=== PATIENT | female | born 1965 | race Caucasian/White ===

== ENCOUNTER 2018-11-17 13:18 | Emergency (ER) | payer MEDICAID, SELFPAY ==
[2018-11-17 13:19] VITALS: BP 158/88; PULSE 61; RESP 17; TEMP 36.6; O2SAT 99; BMI 26.2
[2018-11-17 13:59] LABS: Absolute Lymphocyte Count 4.02 X10^3/uL (0.83-4.51); Absolute Neutrophil Count 4.2 X10^3/uL (2.0-7.7); Basophil# 0.03 X10^3/uL; Basophil% 0.3 % (0-1); Eosinophil# 0.17 X10^3/uL; Eosinophils% 1.9 % (0-5); Hematocrit 43.6 % (37-47); Hemoglobin 14.8 g/dL (12.0-15.0); Lymphocyte # 4.02 X10^3/ul (4.0); Lymphocyte % 44.3 % (19-41); Mean Corp Hgb Conc 33.9 g/dL (32-36); Mean Corpuscular Hgb 32.2 pg (27.0-32.0); Mean Corpuscular Volume 94.8 fL (81-99); Monocyte# 0.65 X10^3/uL; Monocyte% 7.2 % (0-10); NRBC Flagged by Analyzer 0 % (0-5); Neutrophil # 4.17 X10^3/uL (2.7-7.7); Platelet Count 296 K/mm3 (150-450); RBC Distribution Width CV 12.6 % (11.6-14.6); White Blood Count 9.1 K/mm3 (4.4-11.0)
--- NOTE | 2018-11-17 13:59 | ED.VIS.GEN ---
History of Present Illness Chief Complaint: Abd Pain Informant: Patient Onset: Days - 4 days Context: Gradual Onset Timing: Continuous Quality: Pain Location: Periumbilical Current Severity: Mild Maximum Severity: Moderate Worsened by: Touch by prior physician who examined her Relieved by: Nothing Associated Symptoms: No associated symptoms Narrative: Status post recent laparoscopic cholecystectomy by surgeon at [facility], outside facility. She presents because of redness. She denies fever, chills night sweats. She denies shortness of breath. She denies nausea, vomiting diarrhea. She denies dysuria, frequency, urgency or hematuria. She denies drainage from any port. Prior similar symptoms: No Recent Illness/Hospitalization: Yes - Past Medical History (1) No significant past medical history Status: Acute Past Medical History - Allergies and Home Meds Allergies/Adverse Reactions: Allergies No Known Allergies Allergy (Verified 11/17/18 13:19) Primary Care Physician: Osvaldo Banks MD [Primary Care Provider] - Prior records reviewed: No - None available for review Surgical History: cholecystectomy Lives: Alone Smoking Status: Current every day smoker Alcohol: Rare Drugs: None Review of Systems General: Denies: Chills, Fever, Malaise, Subjective, Sweats, Weight loss Cardiovascular: Denies: Chest pain, Palpitations Respiratory: Denies: Dyspnea, Cough, Dyspnea on exertion Gastrointestinal: Reports: Abdominal pain. Denies: Nausea, Vomiting, Diarrhea, Constipation, Melena, Hematochezia Genitourinary: Denies: Dysuria, Hematuria, Frequency Musculoskeletal: Reports: Myalgias Skin: Reports: Rash, Wounds. Denies: Abscess, Abrasions, -, - Hematologic: Denies: Easy bruising, Easy bleeding Allergy: Denies: Uticaria, Swelling of the mouth, Swelling of the tongue Physical Exam Vital Signs/Narrative: Vital Signs Temp Pulse Resp BP Pulse Ox 11/17/18 13:19 97.8 F 61 17 158/88 H 99 Inital Vital Signs reviewed: Yes General: Well nourished, Well developed, No Acute Distress Head: Normocephalic, Atraumatic Eyes: Perrl, EOMI. Negative for: Pale conjunctiva, Scleral icterus ENT: Moist mucous membranes, No rhinorrhea Neck: Supple, Nontender, No lymphadenopathy, No JVD Cardiovascular: Regular rate, Regular rhythm, No murmurs Respiratory: No distress, CTA bilaterally, Chest nontender Abdomen: Soft, Nondistended, Normal bowel sounds, No masses, Tender, Hypoactive bowel sounds. Negative for: Guarding, Rebound tenderness, Hepatomegaly, Splenomegaly, Conner's sign Back: Nontender, Normal Inspection Extremities: Nontender, No edema Skin: Normal color, Rash - Area of erythema inferior to the umbilicus, 1 of the port sites. There is no fluctuance, induration, or drainage. There are no peritoneal findings. Neurological: Alert, Oriented x3, Cranial nerves II-XII grossly intact, Normal Strength, Normal Sensation Psychological: Normal affect, Normal Mood Diagnostic/Tx/Re-eval Laboratory Results 11/17/18 11/17/18 13:43 13:43 WBC 9.1 RBC 4.60 Hgb 14.8 Hct 43.6 MCV 94.8 MCH 32.2 H MCHC 33.9 RDW Std Deviation 44.0 H RDW Coeff of Kenji 12.6 Plt Count 296 MPV 10.0 Immature Gran % (Auto) 0.300 Neut % (Auto) 46.0 L Lymph % (Auto) 44.3 H [place] % (Auto) 7.2 Eos % (Auto) 1.9 Baso % (Auto) 0.3 Absolute Neuts (auto) 4.2 Absolute Lymphs (auto) 4.02 Nucleated RBC % 0 Sodium 140 Potassium 4.0 Chloride 107 Carbon Dioxide 30.0 Anion Gap 3 L BUN 8 Creatinine 0.76 Estim Creat Clear Calc 69.26 Est GFR (MDRD) Af Amer 102 Est GFR (MDRD) Non-Af 85 BUN/Creatinine Ratio 10.5 Glucose 100 Calcium 9.2 White count is normal. There is no shift. Patient does not meet sepsis criteria. She will be treated with p.o. antibiotics and discharged home. She was placed on cephalexin and Bactrim for streptococcal and staphylococcal coverage. - Medical Decision Making Patient is tachypnic will obtain blood work. If white count is normal will discharge with p.o. antibiotics otherwise will do additional testing. Since patient does not meet criteria for admission she was discharged to home with oral antibiotics. She received first dose in the emergency department. She was instructed to follow-up with her surgeon on Tuesday for wound reevaluation. The area of redness was outlined. The outlined area is less than 5 cm there is a less than 5% chance of failure. ED Disposition - Plan for ED Patient: Disposition: Home or Assisted Living Diagnosis: Superficial postoperative wound infection Instructions: ED Wound Infection after surgery Prescriptions: Smz/Tmp Ds [Bactrim Ds] 1 tab PO BID #14 tab Prescription Printed Cephalexin [Keflex] 500 mg PO 4X/DAY #28 cap Prescription Printed Referrals: Osvaldo Banks MD [Primary Care Provider] - Additional Instructions: Follow-up with the surgeon that performed your laparoscopic cholecystectomy on Tuesday for wound reevaluation. If you develop temperature greater than 100, shaking chills or drainage that appears infected return to the emergency department for reevaluation.
[2018-11-17] MEDS: Naproxen 250 MG Tablet 500 MG PO (14:09)
[2018-11-17 14:10] LABS: Anion Gap 3 (5-15); BUN 8 mg/dL (7-18); BUN/Creat Ratio 10.5 RATIO (10-20); Calcium,Total 9.2 mg/dL (8.5-10.1); Chloride 107 mmol/L (98-107); Creatinine, Serum 0.76 mg/dL (0.55-1.02); EST Glomerular Filtration Rate 85 mL/min (>60); Est Glom Filt Rate - Afr Amer 102 mL/min (>60); Estimated Creatinine Clearance 69.26 ml/min; Glucose 100 mg/dL (74-106); Sodium Level 140 mmol/L (136-145)
[2018-11-17] MEDS: Cephalexin 250 MG Capsule 500 MG PO (14:51)
[2018-11-17] MEDS: Smz/Tmp Ds Tablet 1 TABLET PO (14:51)
[2018-11-17 14:52] VITALS: PULSE 50; RESP 18
== END 2018-11-17 14:53 | disposition home or self-care (01) ==
PROVIDERS: Emergency Provider Emergency Medicine; Family Provider Family Medicine; PCP Family Medicine
DX: T81.41XA Infection following a procedure, superficial incisional surgical site, initial encounter (principal); F17.200 Nicotine dependence, unspecified, uncomplicated
CPT/HCPCS: 80048; 85025; 99283; A4216

== ENCOUNTER 2018-11-21 23:09 | Emergency (ER) | payer MEDICAID, SELFPAY ==
[2018-11-21 23:10] VITALS: BP 155/95; PULSE 85; RESP 16; TEMP 35.8; BMI 25.7
--- NOTE | 2018-11-21 23:19 | ED.VIS.GEN ---
History of Present Illness Chief Complaint: Headache Detail of Chief Complaint: Migraine Informant: Patient Onset: Days Context: Gradual Onset Timing: Waxes and wanes Current Severity: Moderate Maximum Severity: Moderate Narrative: Patient has a history of migraine headaches. This migraine started 2 days ago. She has been taking Imitrex, but today started vomiting the medication down. She tried Zofran without improvement. Migraine is diffuse in location. This is similar to her prior migraines. Patient denies recent URI symptoms or head trauma. She did have gallbladder surgery 6 weeks ago. Past Medical History - Allergies and Home Meds Allergies/Adverse Reactions: Allergies No Known Allergies Allergy (Verified 11/17/18 13:19) Primary Care Physician: Osvaldo Banks MD [Primary Care Provider] - Prior records reviewed: Yes Past Medical History: - - Reviewed Surgical History: cholecystectomy Lives: Spouse/ Significant Other Smoking Status: Current every day smoker Review of Systems General: Denies: Chills, Fever Eyes: Denies: Visual changes - bilaterally Cardiovascular: Denies: Chest pain Respiratory: Denies: Dyspnea Gastrointestinal: Reports: Abdominal pain - Postop abdominal pain, Nausea, Vomiting Musculoskeletal: Denies: Neck pain Skin: Denies: Rash Neurological: Reports: Headache Hematologic: Denies: Easy bruising Allergy: Denies: Uticaria Physical Exam Vital Signs/Narrative: Vital Signs Temp Pulse Resp BP 11/21/18 23:10 96.5 F L 85 16 155/95 H Inital Vital Signs reviewed: Yes General: Well nourished, Well developed Head: Normocephalic ENT: Moist mucous membranes Neck: Supple Cardiovascular: Regular rate, Regular rhythm Respiratory: No distress, CTA bilaterally Abdomen: Soft, Tender - Mild right-sided tenderness from her recent surgery. No guarding or rebound., Hypoactive bowel sounds Extremities: Nontender Skin: Normal color Neurological: Alert, Oriented x3 Psychological: Normal affect Diagnostic/Tx/Re-eval - Medical Decision Making Patient was given Toradol, Reglan, Benadryl, and IV fluids. On repeat evaluation she is feeling improved. She has Zofran and Imitrex at home. ED Disposition - Plan for ED Patient: Disposition: Home or Assisted Living Diagnosis: Migraine Instructions: ED, Migraine (Classical) Referrals: Osvaldo Banks MD [Primary Care Provider] - As Needed
[2018-11-21] MEDS: 0.9% Normal Saline 1,000 ML 999 ML IV (23:33)
[2018-11-21] MEDS: DiphenhydrAMINE 50 MG/ML Syringe 25 MG IV (23:34)
[2018-11-21] MEDS: Metoclopramide 10 MG/2 ML Vial IV (23:35)
[2018-11-21] MEDS: Ketorolac 30 MG/ML Syringe IV (23:36)
[2018-11-22 00:40] VITALS: BP 137/89; PULSE 75; RESP 15; O2SAT 98
--- NOTE | 2018-11-22 00:40 | ED.RN ---
PT GIVEN WRITTEN AND VERBAL DISCHARGE INSTRUCTIONS. PT AND VERBALIZE UNDERSTANDING OF D/C INSTRUCTIONS. PT IV D/C AND COVERED WITH 2X2 GAUZE AND PAPER TAPE. PT AMBULATES OUT OF DEPT WITH .
== END 2018-11-22 00:42 | disposition home or self-care (01) ==
PROVIDERS: Emergency Provider Emergency Medicine; Family Provider Family Medicine; PCP Family Medicine
DX: G43.909 Migraine, unspecified, not intractable, without status migrainosus (principal); Z79.899 Other long term (current) drug therapy; F17.200 Nicotine dependence, unspecified, uncomplicated
CPT/HCPCS: 96361; 96374; 96375; 99284; J7030; A4216

== ENCOUNTER 2019-05-03 09:57 | Observation (INO) | payer MEDICAID, SELFPAY ==
[2019-05-03] VITALS (7 sets, daily range): BP systolic 95–155; BP diastolic 56–106; PULSE 68–106; RESP 14–18; TEMP 36.6–36.9; O2SAT 98–100; BMI 24.7; BMI 25.4
[2019-05-03 11:13] LABS: Absolute Neutrophil Count 7.8 X10^3/uL (2.0-7.7); Basophil# 0.03 X10^3/uL; Basophil% 0.3 % (0-1); Eosinophil# 0.01 X10^3/uL; Eosinophils% 0.1 % (0-5); Hematocrit 45.7 % (37-47); Hemoglobin 16.3 g/dL (12.0-15.0); Lymphocyte % 18.9 % (19-41); Mean Corp Hgb Conc 35.7 g/dL (32-36); Mean Corpuscular Hgb 31.4 pg (27.0-32.0); Mean Corpuscular Volume 88.1 fL (81-99); Mean Platelet Vol. 10.9 fl (6.2-12.0); Monocyte# 0.71 X10^3/uL; Monocyte% 6.7 % (0-10); NRBC Flagged by Analyzer 0 % (0-5); Neutrophil # 7.79 X10^3/uL (2.7-7.7); Neutrophil % 73.7 % (47-70); Platelet Count 406 K/mm3 (150-450); RBC Distribution Width CV 12.3 % (11.6-14.6); RBC Distribution Width SD 39.9 fl (35.1-43.9); Red Blood Count 5.19 M/mm3 (4.2-5.4); White Blood Count 10.6 K/mm3 (4.4-11.0)
--- NOTE | 2019-05-03 11:28 | RAD_ITS ---
STUDY: X-RAY CHEST REASON FOR EXAM: Female, 54 years old. HAS COUGH, NAUSEA AND VOMITING X 10 DAYS. TECHNIQUE: PA and lateral views of the chest. COMPARISON: Comparison is made with prior study dated July 07, 2014. FINDINGS: The lungs are clear and expanded. There is no demonstrated pleural abnormality. Normal size heart. Normal mediastinum and [place]. Normal visualized pulmonary arteries. Normal visualized aortic arch and descending thoracic aorta. There are mild degenerative changes of the visualized thoracic spine. Normal visualized ribs, clavicles, and shoulders. There is no demonstrated abnormality of the visualized soft tissue structures of the upper abdomen. RAD/Chest PA and Lateral IMPRESSION: Normal x-ray examination of the chest. Electronically Signed: Boyd Orozco, at 12:07 EST , Service support ,
[2019-05-03] MEDS: 0.9% Normal Saline 1,000 ML 999 ML IV ×2 (11:40→14:00)
[2019-05-03 11:44] LABS: ALB/GLOB Ratio 1.1 RATIO (0.9-2.4); AST(SGOT) 100 U/L (15-37); Alanine Aminotransfer ALT/SGPT 225 U/L (13-56); Albumin, Serum 4.6 g/dL (3.2-5.0); Alkaline Phosphatase 74 U/L (45-117); Anion Gap 11 (5-15); BUN 27 mg/dL (7-18); BUN/Creat Ratio 30.3 RATIO (10-20); Calcium,Total 10.2 mg/dL (8.5-10.1); Chloride 101 mmol/L (98-107); Creatinine, Serum 0.89 mg/dL (0.55-1.02); EST Glomerular Filtration Rate 71 mL/min (>60); Est Glom Filt Rate - Afr Amer 86 mL/min (>60); Estimated Creatinine Clearance 58.48 ml/min; Globulin 4.1 g/dL (2.2-4.2); Glucose 149 mg/dL (74-106); Lipase 64 U/L (73-393); Potassium 2.7 mmol/L (3.5-5.1); Protein, Total 8.7 g/dL (6.4-8.2); Sodium Level 138 mmol/L (136-145)
--- NOTE | 2019-05-03 11:57 | ED.DCSUM_ITS ---
History of Present Illness Chief Complaint: Nausea/Vomiting Informant: Patient Onset: Days Context: Gradual Onset Timing: Continuous Narrative: Is a 54-year-old female that denies any significant past medical history pre senting with concerns of dehydration. Patient had an upper respiratory syndrome that started 10 days ago. Since then she has had pad postnasal drip and mucus production. She states the mucus production is been causing her to gag and throw up white frequently. She states she has not been able to eat or drink in the past 10 days because of her symptoms. Patient states she has associated abdominal discomfort/tenderness because of all the throwing up. She states she feels sore all over from her frequent throwing up. She reports decreased urine output. She is had multiple ER visits to [facility] emergency room within the last week for her symptoms. Patient has had lab work as well as a CT of her abdomen and pelvis which were all normal. She also do flu swab which was normal. Results reviewed through [email or web address]. PCP was concerned about dehydration need for admission for IV fluids. Per PCP report patient's weight from February has dropped from 149 to 134 pounds. Patient has had Phenergan suppositories as well as Zofran with no relief at home. Past Medical History - Allergies and Home Meds Allergies/Adverse Reactions: Allergies No Known Allergies Allergy (Verified 05/03/19 09:58) Surgical History: cholecystectomy Smoking Status: Former smoker - Family History Maternal Family History: Reports: - - Patient notes a paternal family history of diabetes. Paternal Family History: Reports: - - Patient notes that her father young but she is unclear of what and does not know any medical history for him. Review of Systems General: Denies: Chills, Fever, Sweats Eyes: Denies: Visual changes - bilaterally, Diplopia ENT: Reports: - - Nasal congestion. Denies: Rhinorrhea, Sore throat Cardiovascular: Denies: Chest pain, Palpitations Respiratory: Reports: Cough. Denies: Dyspnea, Dyspnea on exertion Gastrointestinal: Reports: Abdominal pain - epigastric, Nausea, Vomiting, Diarrhea. Denies: Melena, Hematochezia Genitourinary: Denies: Dysuria, Hematuria, Frequency Musculoskeletal: Denies: Back pain, Extremity Pain Skin: Denies: Rash, Wounds Neurological: Denies: Headache, Weakness, Numbness Physical Exam Vital Signs/Narrative: Vital Signs Temp Pulse Pulse Pulse Pulse Resp BP 05/03/19 11:01 80 91 95 05/03/19 09:59 97.9 F 106 H 18 139/91 H BP BP BP Pulse Ox 05/03/19 11:01 140/96 H 133/106 H 126/96 H 05/03/19 09:59 100 Inital Vital Signs reviewed: Yes General: Well nourished, Well developed, No Acute Distress Head: Normocephalic, Atraumatic Eyes: Perrl, EOMI ENT: No rhinorrhea, Dry mucous membranes Neck: Supple, Nontender Cardiovascular: Regular rate, Regular rhythm, No murmurs Respiratory: No distress, CTA bilaterally, Chest nontender Abdomen: Soft, Nondistended, Normal bowel sounds, Tender - mild epigastric . Negative for: Guarding, Rebound tenderness, Conner's sign Back: Nontender, Normal Inspection Extremities: Nontender, No edema Skin: Normal color, No rash Neurological: Alert, Oriented x3, Cranial nerves II-XII grossly intact, Normal Strength, Normal Sensation Psychological: Normal affect, Normal Mood Diagnostic/Tx/Re-eval Chest X-Ray - ED: 2 View, Read by ED Physician, Read by Radiologist, No Acute Disease Clinical Impression(s) from Imaging Studies Chest X-Ray 05/03/19 11:28 IMPRESSION: Normal x-ray examination of the chest. Electronically Signed: Boyd Orozco, at 12:07 EST , Service support , Laboratory Data 05/03/19 05/03/19 05/03/19 10:29 10:29 10:29 WBC 10.6 RBC 5.19 Hgb 16.3 H Hct 45.7 MCV 88.1 MCH 31.4 MCHC 35.7 RDW Std Deviation 39.9 RDW Coeff of Kenji 12.3 Plt Count 406 MPV 10.9 Immature Gran % (Auto) 0.300 Neut % (Auto) 73.7 H Lymph % (Auto) 18.9 L [place] % (Auto) 6.7 Eos % (Auto) 0.1 Baso % (Auto) 0.3 Absolute Neuts (auto) 7.8 H Absolute Lymphs (auto) 2.00 Nucleated RBC % 0 Sodium 138 Potassium 2.7 L* Chloride 101 Carbon Dioxide 26.0 Anion Gap 11 BUN 27 H Creatinine 0.89 Estim Creat Clear Calc 58.48 Est GFR (MDRD) Af Amer 86 Est GFR (MDRD) Non-Af 71 BUN/Creatinine Ratio 30.3 H Glucose 149 H Lactic Acid Calcium 10.2 H Magnesium 2.2 Total Bilirubin 2.60 H AST 100 H ALT 225 H Alkaline Phosphatase 74 Troponin I < 0.015 Total Protein 8.7 H Albumin 4.6 Globulin 4.1 Albumin/Globulin Ratio 1.1 Lipase 64 L 05/03/19 11:08 WBC RBC Hgb Hct MCV MCH MCHC RDW Std Deviation RDW Coeff of Kenji Plt Count MPV Immature Gran % (Auto) Neut % (Auto) Lymph % (Auto) [place] % (Auto) Eos % (Auto) Baso % (Auto) Absolute Neuts (auto) Absolute Lymphs (auto) Nucleated RBC % Sodium Potassium Chloride Carbon Dioxide Anion Gap BUN Creatinine Estim Creat Clear Calc Est GFR (MDRD) Af Amer Est GFR (MDRD) Non-Af BUN/Creatinine Ratio Glucose Lactic Acid 2.0 Calcium Magnesium Total Bilirubin AST ALT Alkaline Phosphatase Troponin I Total Protein Albumin Globulin Albumin/Globulin Ratio Lipase - Medical Decision Making Patient is evaluated for persistent vomiting and concerns for dehydration. She is tachycardic. Her vital signs are otherwise normal. Patient had a pretty thorough work-up 5 days ago at [facility]. The lab results and CT were reviewed by myself through [facility]. Patient had a mild hypokalemia of 3.2 at that time. She also had a mild transaminitis with an AST of 125 and an ALT of 170. Her bilirubin was normal. Her abdominal CT with contrast was normal. Other work-up was all negative. Patient clinically appears dehydrated. Her abdomen is mildly tender midepigastric region but otherwise soft. This is likely from her repetitive vomiting. Labs obtained today show normal white blood cell count but an elevated hemoglobin. Likely this is secondary to hemoconcentration. Her potassium is low at 2.7 however her kidney function is normal. Patient again has a mild transaminitis as well as an elevated total bi lirubin of 2.6. Troponin is negative. Lipase is normal. Urinalysis shows ketones but is not consistent with infection. Patient is given oral and IV potassium as well as IV fluids in the emergency room. She is given IV Zofran for symptoms. She is improving. Because of her electrolyte abnormalities and significant symptoms she will be admitted for IV fluids and electrolyte replacement. She is agreeable with this plan. She stable for the general medical floor at time of disposition. ED Disposition - Plan for ED Patient: Disposition: Acute [facility] Diagnosis: Elevated LFTs, Gastroenteritis, Hypokalemia, Dehydration
[2019-05-03] MEDS: Ondansetron 4 MG/2 ML Vial IV (12:23)
[2019-05-03 12:32] LABS: Magnesium 2.2 mg/dL (1.6-2.6)
[2019-05-03] MEDS: Potassium Chloride 10mEq/100mL 10 MEQ/100 ML IV.SOLN. 100 MEQ IV BOLUS ×2 (12:36→13:53)
[2019-05-03 12:40] LABS: Bacteria 0 SEEN /hpf (None Seen); Mucous, Urine 0 SEEN /hpf (<or=2+); Red Blood Cells-Urine 0 SEEN /hpf (0-5)
[2019-05-03 12:51] LABS: Color, Urine Yellow (Yellow); Glucose, Dipstick Normal (Normal); Leukocyte Esterase-Dipstick 100 /ul (Negative); Nitrite-Dipstick Negative (Negative); Occult Blood-Urine 10 /ul (Negative); Protein-Dipstick 30 mg/dl (Negative); Specific Gravity, Urine 1.015 (1.002-1.030); Urine Clarity Sl. Cloudy (Clear); Urine Urobilinogen 4 mg/dl (Normal)
[2019-05-03 12:54] LABS: Urine Bilirubin Dipstick 1 mg/dL (Negative)
[2019-05-03 12:56] LABS: Ketone-Dipstick 150 mg/dl (Negative)
[2019-05-03 13:11] LABS: Amorphous Sediment 1+; Squamous Epithelial Cells - UA 10-25 SEEN /hpf (5-10); White Blood Cells 0-5 SEEN /hpf (0-5)
[2019-05-03] MEDS: Potassium Chloride 10mEq/100mL 10 MEQ/100 ML IV.SOLN. 50 MEQ IV BOLUS ×2 (15:07→17:16)
[2019-05-03] MEDS: 0.9% Normal Saline 1,000 ML 150 ML IV ×2 (15:09→20:35)
[2019-05-03 15:10] LABS: Reflex Lactate? Y
[2019-05-03 16:10] LABS: Lactic Acid 1.1 mmol/L (0.4-1.9)
[2019-05-03 16:18] LABS: ALB/GLOB Ratio 1.1 RATIO (0.9-2.4); AST(SGOT) 63 U/L (15-37); Alanine Aminotransfer ALT/SGPT 160 U/L (13-56); Albumin, Serum 3.5 g/dL (3.2-5.0); Alkaline Phosphatase 59 U/L (45-117); Anion Gap 9 (5-15); BUN 21 mg/dL (7-18); Calcium,Total 8.4 mg/dL (8.5-10.1); Chloride 109 mmol/L (98-107); Creatinine, Serum 0.66 mg/dL (0.55-1.02); EST Glomerular Filtration Rate 100 mL/min (>60); Est Glom Filt Rate - Afr Amer 122 mL/min (>60); Estimated Creatinine Clearance 78.86 ml/min; Globulin 3.1 g/dL (2.2-4.2); Glucose 80 mg/dL (74-106); Potassium 3.4 mmol/L (3.5-5.1); Protein, Total 6.6 g/dL (6.4-8.2); Sodium Level 142 mmol/L (136-145)
--- NOTE | 2019-05-03 16:26 | PCM.HP.STD ---
Problem List (1) Gastroenteritis Status: Acute (2) Hypokalemia Status: Acute (3) Elevated LFTs Status: Acute (4) Hypertension Status: Chronic Qualifiers: Hypertension type: essential hypertension Qualified Code(s): I10 - Essential (primary) hypertension (5) Migraine Status: Chronic Qualifiers: Migraine type: unspecified Status migrainosus presence: without status migrainosus Intractability: not intractable Qualified Code(s): G43.909 - Migraine, unspecified, not intractable, without status migrainosus (6) Former tobacco use Status: Chronic History of Present Illness Date of Admission: 05/03/19 Chief Complaint: Intractable N/V/D The patient is a 54 y/o F w/ PMHx: Hypertension, Migraines, Tobacco use who presents to the [facility] ED on 05/03/19 with history of 10 days of progressively ongoing nausea, emesis, intermittent loose stools with no significant abdominal pain but noted discomfort in the abdomen specifically following emesis bouts with also concurrent significant congestion, postnasal drip, fatigue and malaise with no specific fevers or chills with outside hospital ED presentation initially x3 specifically at [facility] ED with noted work-up including negative rapid influenza, CT abdomen and pelvis with contrast with bilateral adnexal cystic lesions demonstrating a slow interval growth over time with recommended outpatient pelvic ultrasound for further characterization, fatty infiltration of the liver and small hiatal hernia otherwise no acute findings, most recent labs including CMP with potassium 3.2, AST/ALT 125/170, otherwise normal-appearing function with BUN/creatinine 16/0.6 and sodium 139, per report CBC not market appearing either but exact levels not known now presenting as noted to Rena Lara secondary to ongoing symptoms and concerns. Patient does admit to dry heaving secondary to to thickened secretions with postnasal drip. Significant other is present and states that he had similar upper respiratory count of symptoms recently but seem to improve where she did not. Work-up in the ED included T 97.9, heart rate 106, BP 139/91, respiratory rate 18, 100% on room air, orthostatic vitals not not severe, CBC with WC 10.6, hemoglobin 16.3, platelet 406 with left shift, CMP initially with sodium 138, potassium 2.7 with oral and IV supplementation administered in the ED, BUN/creatinine 27/0.89, glucose 149, lactic acid 2, calcium 10.2, total bilirubin 2.60, AST/ALT 100/225, alk phos 75, troponin less than 0.015, lipase 64, calluses consistent with dehydration with specific gravity 1.015, protein 30, ketones 150, occult blood 10 but negative nitrite, leukocyte Estrace 100 however WBC 0-5 and poor sample with squamous epithelial cells 10-25, no urine bacteria. In the ED patient ministered aggressive resuscitation with normal saline, potassium supplementation as noted, Zofran 4 mg IV x1 administered. Past Medical History Past Medical History (Chronic Problems): Chronic Problems Hypertension (Chronic) Migraine (Chronic) Former tobacco use (Chronic) Allergies No Known Allergies Allergy (Verified 05/03/19 09:58) Home Medications: Ambulatory Orders Medication Instructions Recorded Promethazine HCl [Phenadoz] 25 mg RECTAL Q6H PRN 05/03/19 Propranolol HCl [Propranolol HCl 160 mg PO DAILY 05/03/19 ER] Surgical History: cholecystectomy Psychiatric History: No pertinent psych hx DECK MATE History: No pertinent DECK MATE history, - - Outside ED CT abdomen pelvis with incidentally noted bilateral adnexal cystic lesions. Lives: Spouse/ Significant Other Smoking Status: Former smoker - Patient quit cigarette tobacco usage 03/2019 and prior to this smoked less than 10 cigarettes daily since she was a teenager. Tobacco Use: Non-smoker Alcohol: None Drugs: None - *Family History Maternal History Items: - - Patient notes a paternal family history of diabetes. Paternal History Items: - - Patient notes that her father young but she is unclear of what and does not know any medical history for him. Review of Systems Constitutional: Reports: Anorexia, Malaise, Weakness, Fatigue. Denies: Chills, Fever, Weight Change HEENT: Reports: Head Aches, Nasal Congestion, Post Nasal Drip, Sinus Congestion, Sinus Drainage Cardiovascular: Denies: Chest Pain, Palpitations Respiratory: Denies: Cough, Shortness of breath at rest, Sputum production Gastrointestinal: Reports: Diarrhea, Nausea, Vomiting. Denies: Abdominal Pain Genitourinary: Denies: Dysuria Musculoskeletal: Reports: Back Pain, Joint Pain. Denies: Joint Tenderness Skin: Denies: Rash, Wounds Neurological: Denies: Numbness, Tingling, Focal weakness Psychiatric: Denies: Anxiety, Depression, Homicidal Ideations, Suicidal Ideations Hematologic/ Lymphatic: Denies: Easy Bruising, Easy Bleeding VTE Information - Inpt Only VTE Present on Admission: No VTE Mechan Device Prophylaxis: SCD's VTE Pharm Prophylaxis ordered?: Yes Patient Problems: Active and Suspected Problems Gastroenteritis (Acute) Hypokalemia (Acute) Elevated LFTs (Acute) Subjective: Seated upright in the medical surgical bed, no acute distress, mildly fatigued appearance, notes nausea improved with recent ED regimen and amenable to trying clears. Objective: Physical Examination: General: awake, alert, oriented x 3 and cooperative, seated upright in the medical surgical bed, no acute distress, notes improved nausea since ED presentation. Skin: normal color, turgor, no icterus, cyanosis. HEENT: AT/NC, EOMI, PERRLA, moderately dry MM, no carotid bruits or JVD noted. Lungs: CTA bilaterally, moderate effort, moderate decrease BL bases, no rales, ronchi or wheezing. Heart: Regular rate and rhythm; no gallop, rub audible. Abdomen: soft, mild generalized discomfort although she notes likely secondary to emesis but no significant abdominal pain, rebound or guarding, ND, mildly hyperactive BS, no obvious HSM. Extremities: no cyanosis, clubbing, or edema. Neurological: patient awake, alert, oriented x 3; cognitive function intact; pupils equally reactive to light and accomodation; cranial nerves II-XII grossly normal, moving all 4 extremities, no focal deficits, strength moderately global decrease secondary to acute presentation. Psychiatric: affect appears fatigued, no acute evidence of depressive or anxiety feelings. - Physical Exam Vitals/I&O's: Vital Signs Temp Pulse Resp BP Pulse Ox 98.1 F 70 18 130/84 H 98 05/03/19 13:37 05/03/19 13:37 05/03/19 13:37 05/03/19 13:37 05/03/19 13:37 Oxygen Delivery Method Room Air Weight: 139 lb Body Mass Index (BMI) 25.4 Intake and Output for Last 24 Hours 05/01/19 05/02/19 05/03/19 23:59 23:59 23:59 Intake Total 2198 / 219 Output Total 100 / 100 Balance 2098 / 2098 Laboratory Results 05/03/19 10:29: WBC 10.6, RBC 5.19, Hgb 16.3 H, Hct 45.7, MCV 88.1, MCH 31.4, MCHC 35.7, RDW Std Deviation 39.9, RDW Coeff of Kenji 12.3, Plt Count 406, MPV 10.9, Immature Gran % (Auto) 0.300, Neut % (Auto) 73.7 H, Lymph % (Auto) 18.9 L, [place] % (Auto) 6.7, Eos % (Auto) 0.1, Baso % (Auto) 0.3, Absolute Neuts (auto) 7.8 H, Absolute Lymphs (auto) 2.00, Nucleated RBC % 0 05/03/19 10:29: Sodium 138, Potassium 2.7 L*, Chloride 101, Carbon Dioxide 26.0, Anion Gap 11, BUN 27 H, Creatinine 0.89, Estim Creat Clear Calc 58.48, Est GFR (MDRD) Af Amer 86, Est GFR (MDRD) Non-Af 71, BUN/Creatinine Ratio 30.3 H, Glucose 149 H, Calcium 10.2 H, Total Bilirubin 2.60 H, AST 100 H, ALT 225 H, Alkaline Phosphatase 74, Troponin I < 0.015, Total Protein 8.7 H, Albumin 4.6, Globulin 4.1, Albumin/Globulin Ratio 1.1, Lipase 64 L 05/03/19 10:29: Magnesium 2.2 05/03/19 10:29: Hepatitis A IgM Ab Pending, Hepatitis A Ab Total Pending, Hep Bs Antigen Pending, Hep B Core Total Ab Pending, Hep B Core IgM Ab Pending 05/03/19 11:08: Lactic Acid 2.0 05/03/19 12:30: Urine Color Yellow, Urine Clarity Sl. Cloudy, Urine pH 6.0, Ur Specific [place] 1.015, Urine Protein 30 H, Urine Glucose (UA) Normal, Urine Ketones 150 H, Urine Occult Blood 10 H, Urine Nitrite Negative, Urine Bilirubin 1 H, Urine Urobilinogen 4 H, Ur Leukocyte Esterase 100 H, Urine RBC 0 SEEN, Urine WBC 0-5 SEEN, Ur Squamous Epith Cells 10-25 SEEN, Amorphous Sediment 1+, Urine Bacteria 0 SEEN, Urine Mucus 0 SEEN 05/03/19 15:25: Sodium 142, Potassium 3.4 L, Chloride 109 H, Carbon Dioxide 24.0, Anion Gap 9, BUN 21 H, Creatinine 0.66, Estim Creat Clear Calc 78.86, Est GFR (MDRD) Af Amer 122, Est GFR (MDRD) Non-Af 100, BUN/Creatinine Ratio 32.0 H, Glucose 80, Calcium 8.4 L, Total Bilirubin 1.80 H, AST 63 H, ALT 160 H, Alkaline Phosphatase 59, Total Protein 6.6, Albumin 3.5, Globulin 3.1, Albumin/Globulin Ratio 1.1 05/03/19 15:25: Lactic Acid 1.1 Current Medications Acetaminophen (Tylenol) 650 mg PO Q6H PRN PRN PRN Reason: Pain Score 1-3/Temp > 100.7 F Al Hydroxide/Mg Hydroxide (Mylanta Ii) 30 ml PO Q6H PRN PRN PRN Reason: Gastric Burning Albuterol Sulfate (Ventolin Aerosols) 2.5 mg INHALATION Q2H PRN PRN PRN Reason: Shortness of Breath/Wheezing Enoxaparin Sodium (Lovenox) 40 mg SC DAILY [facility] Famotidine (Pepcid) 20 mg PO BID [facility] Glucagon () 1 mg IM .X1 PRN PRN Reason: Hypoglycemia Guaifenesin (Robitussin) 20 ml PO Q4H PRN PRN PRN Reason: COUGH Hydralazine HCl (Apresoline Iv) 10 mg IV Q4H PRN PRN PRN Reason: SBP > 160 Sodium Chloride () 1,000 mls @ 150 mls/hr IV .Q6H40M [facility] Last Admin: 05/03/19 15:09 Dose: 150 mls/hr Documented by: Dextrose (Dextrose 10%-Water) 250 mls @ 999 mls/hr IV .Q16M PRN; Protocol PRN Reason: HYPOGLYCEMIA Influenza Virus Vaccine Quadrival (Flucelvax /Fluzone ) 0.5 ml IM .ONCE ONE Stop: 05/04/19 10:01 Magnesium Hydroxide (Milk Of Magnesia) 30 ml PO DAILY PRN PRN PRN Reason: Constipation Morphine Sulfate () 2 mg IV Q3H PRN PRN PRN Reason: Pain Score 6-10/10 Ondansetron HCl (Zofran) 4 mg IV Q8H PRN PRN PRN Reason: NAUSEA/VOMITING Oxycodone HCl (Oxyir) 5 mg PO Q4H PRN PRN PRN Reason: Pain Score 4-5/10 Prochlorperazine Edisylate (Compazine Iv) 5 mg IV Q4H PRN PRN PRN Reason: Breakthrough nausea/vomiting Propranolol HCl (Inderal La) 160 mg PO DAILY [facility] Sodium Chloride () 10 - 40 ml IV UD PRN PRN Reason: SALINE FLUSH Temazepam (Restoril) 15 mg PO QHS PRN PRN PRN Reason: INSOMNIA Throat Lozenges (Cepacol Sore Throat Lozenge) 1 lozenge MUCOUS MEM Q2H PRN PRN PRN Reason: Sore throat or cough Assessment/Plan All Active Problems No significant past medical history (Acute) Gastroenteritis (Acute) Hypokalemia (Acute) Elevated LFTs (Acute) The patient is a 54 y/o F w/ PMHx: Hypertension, Migraines, Tobacco use who presents to the [facility] ED on 05/03/19 with history of 10 days of progressively ongoing nausea, emesis, intermittent loose stools with no significant abdominal pain but noted discomfort in the abdomen specifically following emesis bouts with also concurrent significant congestion, postnasal drip, fatigue and malaise with no specific fevers or chills with outside hospital ED presentation initially x3 specifically at [facility] ED with unremarkable CT abdomen pelvis but consistent hypokalemia and elevated liver enzymes prompting current evaluation. 1. N/V/D, ? Gastroenteritis versus acute viral syndrome: Given intractable nature, hypokalemic presentation and elevated liver enzymes with recent significant serial ED presentations, will admit to medical surgical floor and maintain on the telemetry until potassium resuscitation appropriate and levels appropriate, continue aggressive hydration, will obtain c diff, stool cx, O+P with repeat AM CBC. Will not start antibiotics at this time given unclear source pending stool studies as may be viral gastroenteritis. Anti-emetics, pain regimen PRN. Additionally given liver enzyme elevations will obtain urine drug screen, hepatitis panel as this had not been obtained prior and there has been a bout of hepatitis a in the region. Will allow clears and advance diet as tolerated. Repeat lactic level following aggressive ED hydration and continue reevaluation 1.1 with improvement of liver function testing concurrently. Respiratory viral panel also requested given upper respiratory complaints. 2. Hypokalemia: Admission K+ 2.7, likely secondary to GI losses, aggressive ED supplementation given with repeat level this afternoon 3.4, improving, will dose additional 40 mill equivalent now, repeat level in AM. Magnesium level obtained and noted to be 2.2. 3. Elevated LFTs, unclear specific etiology, suspected association with #1 as noted: Admission total bilirubin 2.60, AST/ALT 100/225, alk phos 74, aggressively hydrated, repeat CMP later in the day given hypokalemia with total bilirubin 1.80, AST/ALT 63/160, similarly elevated at outside ED hospital as noted in H&P, hepatitis panel requested, recent CT scan with noted fatty liver only. Continue to hydrate and repeat CMP in a.m. 4. Tobacco Abuse: Encouraged cessation, inpatient consultation per RT, NR if desired. 5. Hypertension: Continue home regimen including propranolol concurrently use for patient underlying history of migraines, PRN hydralazine. 6. Migraine history: Patient notes she does use Imitrex, will hold initiation but if necessary may dose. 7. Incidentally noted bilateral adnexal cystic lesions: Outpatient CT abdomen and pelvis at ED noting bilateral adnexal cystic lesions demonstrating slow interval growth over time. Will need outpatient follow-up pelvic ultrasound. Patient does note that she is going through menopause currently. 8. DVT prophylaxis: SCDs, Lovenox. Code Visit Inpatient E&M: 75477 Init Hosp L3
[2019-05-03] MEDS: Famotidine 20 MG Tablet PO (20:37)
[2019-05-04 02:00] VITALS: BP 115/66; PULSE 80; RESP 16; TEMP 36.7; O2SAT 95
[2019-05-04] MEDS: 0.9% Normal Saline 1,000 ML 150 ML IV (03:18)
[2019-05-04] MEDS: Acetaminophen 325 MG Tablet 650 MG PO (03:22)
[2019-05-04 04:12] VITALS: PULSE 65
--- NOTE | 2019-05-04 07:03 | PN_ITS ---
Patient Problems: Active and Suspected Problems Gastroenteritis (Acute) Hypokalemia (Acute) Elevated LFTs (Acute) Dehydration (Acute) Subjective: Patient with no acute events overnight per self and per nursing report. With no further nausea, emesis, diarrhea, no abdominal pain, tolerating diet and eager for advancement. Discussed current presentation with unremarkable respiratory viral panel and inability to obtain stool assessment secondary to lack of diarrhea. Discussed plan of care with patient which included diet trial and if successful given improvement plan discharged home with continued outpatient follow-up. Patient denies fevers, chills, recurrent or worsened nausea, emesis, abdominal pain, chest pain or dyspnea. Objective: Physical Examination: General: awake, alert, oriented x 3 and cooperative, seated upright in the medical surgical bed, no acute distress, eager for diet transition. HEENT: AT/NC, EOMI, PERRLA, improved MMM. Lungs: CTA bilaterally, moderate effort, moderate decrease BL bases, no rales, ronchi or wheezing. Heart: Regular rate and rhythm; no gallop, rub audible. Abdomen: soft, tender to palpation, nondistended, normalized bowel sounds. Extremities: no cyanosis, clubbing, or edema. Neurological: patient awake, alert, oriented x 3; cognitive function intact; pupils equally reactive to light and accomodation; cranial nerves II-XII grossly normal, moving all 4 extremities, no focal deficits, strength improved, mildly globally decreased. Psychiatric: affect appears less fatigued, no acute evidence of depressive or anxiety feelings. Vitals/I&O's: Vital Signs Temp Pulse Resp BP Pulse Ox 98.1 F 65 16 115/66 95 05/04/19 02:00 05/04/19 04:12 05/04/19 02:00 05/04/19 02:00 05/04/19 02:00 Oxygen Flow Rate (L/min) 2 Oxygen Delivery Method Nasal Cannula Weight: 139 lb Body Mass Index (BMI) 25.4 Intake and Output for Last 24 Hours 05/02/19 05/03/19 05/04/19 23:59 23:59 23:59 Intake Total 3334 / 3634 1500 / 1500 Output Total 300 / 300 Balance 3034 / 3334 1500 / 1500 Microbiology Past 72 Hours 05/03/19 17:17 Mucosa - Nasopharyngeal Respiratory Panel (PCR) - Final Laboratory Results 05/03/19 10:29: WBC 10.6, RBC 5.19, Hgb 16.3 H, Hct 45.7, MCV 88.1, MCH 31.4, MCHC 35.7, RDW Std Deviation 39.9, RDW Coeff of Kenji 12.3, Plt Count 406, MPV 10.9, Immature Gran % (Auto) 0.300, Neut % (Auto) 73.7 H, Lymph % (Auto) 18.9 L, [place] % (Auto) 6.7, Eos % (Auto) 0.1, Baso % (Auto) 0.3, Absolute Neuts (auto) 7.8 H, Absolute Lymphs (auto) 2.00, Nucleated RBC % 0 05/03/19 10:29: Sodium 138, Potassium 2.7 L*, Chloride 101, Carbon Dioxide 26.0, Anion Gap 11, BUN 27 H, Creatinine 0.89, Estim Creat Clear Calc 58.48, Est GFR (MDRD) Af Amer 86, Est GFR (MDRD) Non-Af 71, BUN/Creatinine Ratio 30.3 H, Glucose 149 H, Calcium 10.2 H, Total Bilirubin 2.60 H, AST 100 H, ALT 225 H, Alkaline Phosphatase 74, Troponin I < 0.015, Total Protein 8.7 H, Albumin 4.6, Globulin 4.1, Albumin/Globulin Ratio 1.1, Lipase 64 L 05/03/19 10:29: Magnesium 2.2 05/03/19 10:29: Hepatitis A IgM Ab Pending, Hepatitis A Ab Total Pending, Hep Bs Antigen Pending, Hep B Core Total Ab Pending, Hep B Core IgM Ab Pending 05/03/19 11:08: Lactic Acid 2.0 05/03/19 12:30: Urine Color Yellow, Urine Clarity Sl. Cloudy, Urine pH 6.0, Ur Specific [place] 1.015, Urine Protein 30 H, Urine Glucose (UA) Normal, Urine Ketones 150 H, Urine Occult Blood 10 H, Urine Nitrite Negative, Urine Bilirubin 1 H, Urine Urobilinogen 4 H, Ur Leukocyte Esterase 100 H, Urine RBC 0 SEEN, Urine WBC 0-5 SEEN, Ur Squamous Epith Cells 10-25 SEEN, Amorphous Sediment 1+, Urine Bacteria 0 SEEN, Urine Mucus 0 SEEN 05/03/19 15:25: Sodium 142, Potassium 3.4 L, Chloride 109 H, Carbon Dioxide 24.0, Anion Gap 9, BUN 21 H, Creatinine 0.66, Estim Creat Clear Calc 78.86, Est GFR (MDRD) Af Amer 122, Est GFR (MDRD) Non-Af 100, BUN/Creatinine Ratio 32.0 H, Glucose 80, Calcium 8.4 L, Total Bilirubin 1.80 H, AST 63 H, ALT 160 H, Alkaline Phosphatase 59, Total Protein 6.6, Albumin 3.5, Globulin 3.1, Albumin/Globulin Ratio 1.1 05/03/19 15:25: Lactic Acid 1.1 Current Medications Acetaminophen (Tylenol) 650 mg PO Q6H PRN PRN PRN Reason: Pain Score 1-3/Temp > 100.7 F Last Admin: 05/04/19 03:22 Dose: 650 mg Documented by: Al Hydroxide/Mg Hydroxide (Mylanta Ii) 30 ml PO Q6H PRN PRN PRN Reason: Gastric Burning Albuterol Sulfate (Ventolin Aerosols) 2.5 mg INHALATION Q2H PRN PRN PRN Reason: Shortness of Breath/Wheezing Enoxaparin Sodium (Lovenox) 40 mg SC DAILY [facility] Famotidine (Pepcid) 20 mg PO BID [facility] Last Admin: 05/03/19 20:37 Dose: 20 mg Documented by: Glucagon () 1 mg IM .X1 PRN PRN Reason: Hypoglycemia Guaifenesin (Robitussin) 20 ml PO Q4H PRN PRN PRN Reason: COUGH Hydralazine HCl (Apresoline Iv) 10 mg IV Q4H PRN PRN PRN Reason: SBP > 160 Sodium Chloride () 1,000 mls @ 150 mls/hr IV .Q6H40M [facility] Last Admin: 05/04/19 03:18 Dose: 150 mls/hr Documented by: Dextrose (Dextrose 10%-Water) 250 mls @ 999 mls/hr IV .Q16M PRN; Protocol PRN Reason: HYPOGLYCEMIA Influenza Virus Vaccine Quadrival (Flucelvax /Fluzone ) 0.5 ml IM .ONCE ONE Stop: 05/04/19 10:01 Magnesium Hydroxide (Milk Of Magnesia) 30 ml PO DAILY PRN PRN PRN Reason: Constipation Morphine Sulfate () 2 mg IV Q3H PRN PRN PRN Reason: Pain Score 6-10/10 Ondansetron HCl (Zofran) 4 mg IV Q8H PRN PRN PRN Reason: NAUSEA/VOMITING Oxycodone HCl (Oxyir) 5 mg PO Q4H PRN PRN PRN Reason: Pain Score 4-5/10 Prochlorperazine Edisylate (Compazine Iv) 5 mg IV Q4H PRN PRN PRN Reason: Breakthrough nausea/vomiting Propranolol HCl (Inderal La) 160 mg PO DAILY [facility] Sodium Chloride () 10 - 40 ml IV UD PRN PRN Reason: SALINE FLUSH Temazepam (Restoril) 15 mg PO QHS PRN PRN PRN Reason: INSOMNIA Throat Lozenges (Cepacol Sore Throat Lozenge) 1 lozenge MUCOUS MEM Q2H PRN PRN PRN Reason: Sore throat or cough STROKE Vital Signs/Narrative: Vital Signs Pulse 05/04/19 04:12 65 Medical Necessity - Tobacco Use Smoking Status: Former smoker Tobacco Use: Non-smoker Assessment/Plan All Active Problems No significant past medical history (Acute) Gastroenteritis (Acute) Hypokalemia (Acute) Elevated LFTs (Acute) Dehydration (Acute) The patient is a 54 y/o F w/ PMHx: Hypertension, Migraines, Tobacco use who presents to the [facility] ED on 05/03/19 with history of 10 days of progressively ongoing nausea, emesis, intermittent loose stools with no significant abdominal pain but noted discomfort in the abdomen specifically following emesis bouts with also concurrent significant congestion, postnasal drip, fatigue and malaise with no specific fevers or chills with outside hospital ED presentation initially x3 specifically at [facility] ED with unremarkable CT abdomen pelvis but consistent hypokalemia and elevated liver enzymes prompting current evaluation. 1. N/V/D, ? Gastroenteritis versus acute viral syndrome: Given intractable nature, hypokalemic presentation and elevated liver enzymes with recent significant serial ED presentations, to medical surgical floor, maintained on telemetry initially until potassium improved, complete resolution following presentation of diarrhea therefore no stool cultures obtained, liver enzymes trended and clinically improved only with hydration and conservative care, hepatitis panel also requested and pending upon even discharge plan with plan follow-up with primary care physician outpatient to review. Patient initially placed on clear liquid diet which was tolerated and advanced. Respiratory viral panel unremarkable given URI complaints concurrently. Given patient clinical improvement, more so than what was expected if tolerates diet would plan discharged home today with follow-up with primary care physician especially to assure follow-up with hepatitis panel. 2. Hypokalemia: Admission K+ 2.7, likely secondary to GI losses, aggressive ED supplementation given with repeat level this afternoon 3.4, improving, 05/04/2019 potassium 3.0, additional supplementation requested. Magnesium level obtained and noted to be 2.2. Discussed that if discharged today 05/04/2019 would have repeat BMP follow-up with primary care outpatient. 3. Elevated LFTs, unclear specific etiology, suspected association with #1 as noted: Admission total bilirubin 2.60, AST/ALT 100/225, alk phos 74, aggressively hydrated, repeat CMP later in the day given hypokalemia with total bilirubin 1.80, AST/ALT 63/160, similarly elevated at outside ED hospital as noted in H&P, hepatitis panel requested and pending, recent CT scan with noted fatty liver only. Repeat 05/04/2019 total bilirubin 1.90, AST/ALT 36/107, improved. Discussed that if discharged today 05/04/2019 would plan follow-up on hepatitis panel with her primary care physician outpatient. 4. Tobacco Abuse: Encouraged cessation, inpatient consultation per RT, NR if desired. 5. Hypertension: Continue home regimen including propranolol concurrently use for patient underlying history of migraines, PRN hydralazine. 6. Migraine history: Patient notes she does use Imitrex, will hold initiation but if necessary may dose. 7. Incidentally noted bilateral adnexal cystic lesions: Outpatient CT abdomen and pelvis at ED noting bilateral adnexal cystic lesions demonstrating slow interval growth over time. Will need outpatient follow-up pelvic ultrasound. Patient does note that she is going through menopause currently. 8. DVT prophylaxis: SCDs, Lovenox.
[2019-05-04 07:07] LABS: HEPATITIS B SURFACE AG Negative (Negative); Hepatitis A AB, Total Negative (Negative); Hepatitis A IgM Antibody Negative (Negative); Hepatitis B Core AB IgM Negative (Negative); Hepatitis B Core Ab Total Negative (Negative); Hepatitis C Ab <0.1 s/co ratio (0.0-0.9)
[2019-05-04 07:30] LABS: ALB/GLOB Ratio 1.1 RATIO (0.9-2.4); AST(SGOT) 36 U/L (15-37); Alanine Aminotransfer ALT/SGPT 107 U/L (13-56); Albumin, Serum 2.8 g/dL (3.2-5.0); Alkaline Phosphatase 52 U/L (45-117); Anion Gap 4 (5-15); BUN 10 mg/dL (7-18); BUN/Creat Ratio 15.7 RATIO (10-20); Calcium,Total 7.9 mg/dL (8.5-10.1); Chloride 115 mmol/L (98-107); Creatinine, Serum 0.64 mg/dL (0.55-1.02); EST Glomerular Filtration Rate 104 mL/min (>60); Est Glom Filt Rate - Afr Amer 126 mL/min (>60); Estimated Creatinine Clearance 81.33 ml/min; Globulin 2.5 g/dL (2.2-4.2); Glucose 92 mg/dL (74-106); Protein, Total 5.3 g/dL (6.4-8.2); Sodium Level 146 mmol/L (136-145)
[2019-05-04 07:53] LABS: Absolute Lymphocyte Count 3.36 X10^3/uL (0.83-4.51); Absolute Neutrophil Count 3.2 X10^3/uL (2.0-7.7); Basophil# 0.03 X10^3/uL; Basophil% 0.4 % (0-1); Eosinophil# 0.07 X10^3/uL; Hematocrit 34.6 % (37-47); Lymphocyte # 3.36 X10^3/ul (4.0); Lymphocyte % 45.9 % (19-41); Mean Corp Hgb Conc 34.7 g/dL (32-36); Mean Corpuscular Hgb 32.2 pg (27.0-32.0); Mean Platelet Vol. 10.5 fl (6.2-12.0); Monocyte# 0.62 X10^3/uL; Monocyte% 8.5 % (0-10); NRBC Flagged by Analyzer 0 % (0-5); Neutrophil # 3.21 X10^3/uL (2.7-7.7); Neutrophil % 43.8 % (47-70); Platelet Count 289 K/mm3 (150-450); RBC Distribution Width CV 12.8 % (11.6-14.6); RBC Distribution Width SD 43.5 fl (35.1-43.9); Red Blood Count 3.73 M/mm3 (4.2-5.4); White Blood Count 7.3 K/mm3 (4.4-11.0)
[2019-05-04 07:56] LABS: Mean Corpuscular Volume 92.8 fL (81-99)
--- NOTE | 2019-05-04 08:57 | PCM.DC ---
- Discharge Diagnoses Current Active Problems: Current Active and Chronic Problems 1. N/V/D, ? Gastroenteritis versus acute viral syndrome 2. Hypokalemia 3. Elevated LFTs, unclear specific etiology, suspected association with #1 as noted 4. Tobacco Abuse 5. Hypertension 6. Migraine history 7. Incidentally noted bilateral adnexal cystic lesions You will use the following diet at home:: Other - Please slowly transition from fulls to regular diet and pull back if onset upset stomach and slowly re-introduce items. Avoid items outright that would normally cause you upset stomach or increased flatulence. Your food should be the consistency of: Regular Your liquids should be the consistency of: Regular/Thin Discharge Activity: - - Avoid aggressive activity until tolerating a regular diet and no further GI symptoms. Call your doctor if you observe: Fever of 101 or Higher, Inability to urinate, Inability to have a bowel movement, Shortness of breath, Dizziness, Fainting spells, Chest pain, Uncontrolled pain Instructions: Self-Care for Vomiting and Diarrhea Additional Instructions: Please follow-up with your primary care physician as recommended to review admission, have repeat complete metabolic panel to assure potassium levels appropriate and continued improvement of you liver enzymes as well as follow-up on results of your hepatitis panel. ADDITIONAL FOLLOW-UP: Incidentally noted bilateral adnexal cystic lesions on recent outside hospital ED CT abdomen and pelvis w/ specific reported bilateral adnexal cystic lesions demonstrating slow interval growth over time. Will need outpatient follow-up pelvic ultrasound which may be arranged per your primary care physician or your Business Technology Professor physician. Pending Tests on Discharge: Hepatitis panel. Allergies/Adverse Reactions: Allergies No Known Allergies Allergy (Verified 05/03/19 09:58) Medications to take at Discharge Propranolol HCl [Propranolol HCl ER] 160 mg PO DAILY 05/03/19 Famotidine [Pepcid] 20 mg PO BID #60 tab 05/04/19 The following prescriptions were given: Famotidine [Pepcid] 20 mg PO BID #60 tab Transmission Status: Pending to [facility] Primary Care Physician: Osvaldo Banks MD [Primary Care Provider] - Please follow up with your Primary Care Physician in: Follow-up within 3-5 days to review admission. Test Results: Test results from this visit will be discussed in further detail at your follow-up appointment, if applicable. Please Follow Up With: Business Technology Professor When: Follow with your primary care or meat blender for follow-up pelvic US. Proposed Discharge Date: 05/04/19
[2019-05-04 08:59] VITALS: BP 139/76; PULSE 70; RESP 18; TEMP 36.3; O2SAT 100
--- NOTE | 2019-05-04 09:03 | PCM.DC.SUM ---
Discharge Date and Diagnosis - Problem List Patient Problems: Active and Suspected Problems Gastroenteritis (Acute) Hypokalemia (Acute) Elevated LFTs (Acute) Dehydration (Acute) Date of Admission: 05/03/19 Date of Discharge: 05/04/19 - Primary Discharge Diagnosis Active and Suspected Problems 1. N/V/D, ? Gastroenteritis versus acute viral syndrome 2. Hypokalemia 3. Elevated LFTs, unclear specific etiology, suspected association with #1 as noted 4. Tobacco Abuse 5. Hypertension 6. Migraine history 7. Incidentally noted bilateral adnexal cystic lesions - Secondary Discharge Diagnosis Chronic Problems Hypertension (Chronic) Migraine (Chronic) Former tobacco use (Chronic) Hospital Course and Treatment Operations: None Procedures: EKG Summary of Care Provided: The patient is a 54 y/o F w/ PMHx: Hypertension, Migraines, Tobacco use who presented to the [facility] ED on 05/03/19 with history of 10 days of progressively ongoing nausea, emesis, intermittent loose stools with no significant abdominal pain but noted discomfort in the abdomen specifically following emesis bouts with also concurrent significant congestion, postnasal drip, fatigue and malaise with no specific fevers or chills with outside hospital ED presentation initially x3 specifically at [facility] ED with unremarkable CT abdomen pelvis but consistent hypokalemia and elevated liver enzymes prompting current evaluation. Given intractable nature, hypokalemic presentation and elevated liver enzymes with recent significant serial ED presentations, to medical surgical floor, maintained on telemetry initially until potassium improved, complete resolution following presentation of diarrhea therefore no stool cultures obtained, liver enzymes trended and clinically improved only with hydration and conservative care, hepatitis panel also requested and pending upon even discharge plan with plan follow-up with primary care physician outpatient to review. Patient initially placed on clear liquid diet which was tolerated and advanced. Respiratory viral panel unremarkable given URI complaints concurrently. Admission K+ 2.7, likely secondary to GI losses, aggressive ED supplementation given with repeat level this afternoon 3.4, improving, 05/04/2019 potassium 3.0, additional supplementation requested. Magnesium level obtained and noted to be 2.2. Requested upon discharged repeat BMP follow-up with primary care outpatient. Admission total bilirubin 2.60, AST/ALT 100/225, alk phos 74, aggressively hydrated, repeat CMP later in the day given hypokalemia with total bilirubin 1.80, AST/ALT 63/160, similarly elevated at outside ED hospital as noted in H&P, hepatitis panel requested and pending, recent CT scan with noted fatty liver only. Repeat 05/04/2019 total bilirubin 1.90, AST/ALT 36/107, improved. Discussed plan for follow-up with PCP for repeat CMP and results of hepatitis panel with her primary care physician outpatient. OSH ED CT A/P w/ noting bilateral adnexal cystic lesions demonstrating slow interval growth over time with recommendation upon discharge to have follow-up outpatient pelvic US with her PCP or anesthesiology medical doctor. Given patient clinical improvement, more so than what was expected discharged home today with follow-up with primary care physician. Patient Problems: Active and Suspected Problems Gastroenteritis (Acute) Hypokalemia (Acute) Elevated LFTs (Acute) Dehydration (Acute) - Physical Exam Vitals/I&O's: Vital Signs Temp Pulse Resp BP Pulse Ox 98.1 F 65 16 115/66 95 05/04/19 02:00 05/04/19 04:12 05/04/19 02:00 05/04/19 02:00 05/04/19 02:00 Oxygen Flow Rate (L/min) 2 Oxygen Delivery Method Nasal Cannula Weight: 139 lb Body Mass Index (BMI) 25.4 Intake and Output for Last 24 Hours 05/02/19 05/03/19 05/04/19 23:59 23:59 23:59 Intake Total 3334 / 3634 1500 / 1500 Output Total 300 / 300 Balance 3034 / 3334 1500 / 1500 Microbiology Past 72 Hours 05/03/19 17:17 Mucosa - Nasopharyngeal Respiratory Panel (PCR) - Final Laboratory Results 05/03/19 10:29: WBC 10.6, RBC 5.19, Hgb 16.3 H, Hct 45.7, MCV 88.1, MCH 31.4, MCHC 35.7, RDW Std Deviation 39.9, RDW Coeff of Kenji 12.3, Plt Count 406, MPV 10.9, Immature Gran % (Auto) 0.300, Neut % (Auto) 73.7 H, Lymph % (Auto) 18.9 L, Platte % (Auto) 6.7, Eos % (Auto) 0.1, Baso % (Auto) 0.3, Absolute Neuts (auto) 7.8 H, Absolute Lymphs (auto) 2.00, Nucleated RBC % 0 05/03/19 10:29: Sodium 138, Potassium 2.7 L*, Chloride 101, Carbon Dioxide 26.0, Anion Gap 11, BUN 27 H, Creatinine 0.89, Estim Creat Clear Calc 58.48, Est GFR (MDRD) Af Amer 86, Est GFR (MDRD) Non-Af 71, BUN/Creatinine Ratio 30.3 H, Glucose 149 H, Calcium 10.2 H, Total Bilirubin 2.60 H, AST 100 H, ALT 225 H, Alkaline Phosphatase 74, Troponin I < 0.015, Total Protein 8.7 H, Albumin 4.6, Globulin 4.1, Albumin/Globulin Ratio 1.1, Lipase 64 L 05/03/19 10:29: Magnesium 2.2 05/03/19 10:29: Hepatitis A IgM Ab Pending, Hepatitis A Ab Total Pending, Hep Bs Antigen Pending, Hep B Core Total Ab Pending, Hep B Core IgM Ab Pending 05/03/19 11:08: Lactic Acid 2.0 05/03/19 12:30: Urine Color Yellow, Urine Clarity Sl. Cloudy, Urine pH 6.0, Ur Specific [place] 1.015, Urine Protein 30 H, Urine Glucose (UA) Normal, Urine Ketones 150 H, Urine Occult Blood 10 H, Urine Nitrite Negative, Urine Bilirubin 1 H, Urine Urobilinogen 4 H, Ur Leukocyte Esterase 100 H, Urine RBC 0 SEEN, Urine WBC 0-5 SEEN, Ur Squamous Epith Cells 10-25 SEEN, Amorphous Sediment 1+, Urine Bacteria 0 SEEN, Urine Mucus 0 SEEN 05/03/19 15:25: Sodium 142, Potassium 3.4 L, Chloride 109 H, Carbon Dioxide 24.0, Anion Gap 9, BUN 21 H, Creatinine 0.66, Estim Creat Clear Calc 78.86, Est GFR (MDRD) Af Amer 122, Est GFR (MDRD) Non-Af 100, BUN/Creatinine Ratio 32.0 H, Glucose 80, Calcium 8.4 L, Total Bilirubin 1.80 H, AST 63 H, ALT 160 H, Alkaline Phosphatase 59, Total Protein 6.6, Albumin 3.5, Globulin 3.1, Albumin/Globulin Ratio 1.1 05/03/19 15:25: Lactic Acid 1.1 05/04/19 06:45: WBC 7.3, RBC 3.73 L, Hgb 12.0, Hct 34.6 L, MCV 92.8 D, MCH 32.2 H, MCHC 34.7, RDW Std Deviation 43.5, RDW Coeff of Kenji 12.8, Plt Count 289, MPV 10.5, Immature Gran % (Auto) 0.400, Neut % (Auto) 43.8 L, Lymph % (Auto) 45.9 H, Platte % (Auto) 8.5, Eos % (Auto) 1.0, Baso % (Auto) 0.4, Absolute Neuts (auto) 3.2, Absolute Lymphs (auto) 3.36, Nucleated RBC % 0 05/04/19 06:45: Sodium 146 H, Potassium 3.0 L, Chloride 115 H, Carbon Dioxide 27.0, Anion Gap 4 L, BUN 10, Creatinine 0.64, Estim Creat Clear Calc 81.33, Est GFR (MDRD) Af Amer 126, Est GFR (MDRD) Non-Af 104, BUN/Creatinine Ratio 15.7, Glucose 92, Calcium 7.9 L, Total Bilirubin 1.90 H, AST 36, ALT 107 H, Alkaline Phosphatase 52, Total Protein 5.3 L, Albumin 2.8 L, Globulin 2.5, Albumin/Globulin Ratio 1.1 Current Medications Acetaminophen (Tylenol) 650 mg PO Q6H PRN PRN PRN Reason: Pain Score 1-3/Temp > 100.7 F Last Admin: 05/04/19 03:22 Dose: 650 mg Documented by: Al Hydroxide/Mg Hydroxide (Mylanta Ii) 30 ml PO Q6H PRN PRN PRN Reason: Gastric Burning Albuterol Sulfate (Ventolin Aerosols) 2.5 mg INHALATION Q2H PRN PRN PRN Reason: Shortness of Breath/Wheezing Enoxaparin Sodium (Lovenox) 40 mg SC DAILY LALA Famotidine (Pepcid) 20 mg PO BID LALA Last Admin: 05/03/19 20:37 Dose: 20 mg Documented by: Glucagon () 1 mg IM .X1 PRN PRN Reason: Hypoglycemia Guaifenesin (Robitussin) 20 ml PO Q4H PRN PRN PRN Reason: COUGH Hydralazine HCl (Apresoline Iv) 10 mg IV Q4H PRN PRN PRN Reason: SBP > 160 Sodium Chloride () 1,000 mls @ 150 mls/hr IV .Q6H40M [facility] Last Admin: 05/04/19 03:18 Dose: 150 mls/hr Documented by: Dextrose (Dextrose 10%-Water) 250 mls @ 999 mls/hr IV .Q16M PRN; Protocol PRN Reason: HYPOGLYCEMIA Influenza Virus Vaccine Quadrival (Flucelvax /Fluzone ) 0.5 ml IM .ONCE ONE Stop: 05/04/19 10:01 Magnesium Hydroxide (Milk Of Magnesia) 30 ml PO DAILY PRN PRN PRN Reason: Constipation Morphine Sulfate () 2 mg IV Q3H PRN PRN PRN Reason: Pain Score 6-10/10 Ondansetron HCl (Zofran) 4 mg IV Q8H PRN PRN PRN Reason: NAUSEA/VOMITING Oxycodone HCl (Oxyir) 5 mg PO Q4H PRN PRN PRN Reason: Pain Score 4-5/10 Prochlorperazine Edisylate (Compazine Iv) 5 mg IV Q4H PRN PRN PRN Reason: Breakthrough nausea/vomiting Propranolol HCl (Inderal La) 160 mg PO DAILY [facility] Sodium Chloride () 10 - 40 ml IV UD PRN PRN Reason: SALINE FLUSH Temazepam (Restoril) 15 mg PO QHS PRN PRN PRN Reason: INSOMNIA Throat Lozenges (Cepacol Sore Throat Lozenge) 1 lozenge MUCOUS MEM Q2H PRN PRN PRN Reason: Sore throat or cough Discharge Activity: - - Avoid aggressive activity until tolerating a regular diet and no further GI symptoms. Call your doctor if you observe: Fever of 101 or Higher, Inability to urinate, Inability to have a bowel movement, Shortness of breath, Dizziness, Fainting spells, Chest pain, Uncontrolled pain Home Medications: Medications to take at Discharge Propranolol HCl [Propranolol HCl ER] 160 mg PO DAILY 05/03/19 Famotidine [Pepcid] 20 mg PO BID #60 tab 05/04/19 Following Prescrptions Were Given to Patient: Famotidine [Pepcid] 20 mg PO BID #60 tab Transmission Status: Pending to [facility] Primary Care Physician: Osvaldo Banks MD [Primary Care Provider] - Please follow up with your Primary Care Physician in: Follow-up within 3-5 days to review admission. Please Follow Up With: Retail Service Specialist When: Follow with your primary care or account planner for follow-up pelvic US. Patient Instructions: Self-Care for Vomiting and Diarrhea Disposition: Home Minutes spent on discharge:: 35 Patient Condition:: Fair Medical Necessity - Tobacco Use Smoking Status: Former smoker Tobacco Use: Non-smoker Meaningful Use Info Meaningful Use Diagnoses (Choose all that apply): None applicable Code Visit OBSV E&M: 88978 Observation care discharge
[2019-05-04] MEDS: Enoxaparin 40 MG/0.4 ML Syringe SC (09:11)
[2019-05-04] MEDS: Famotidine 20 MG Tablet PO (09:12)
[2019-05-04] MEDS: Propranolol LA 80 MG Capsule 160 MG PO (09:13)
[2019-05-04] MEDS: 0.9% Normal Saline 1,000 ML 50 ML IV (11:09)
[2019-05-04] MEDS: 0.9% Saline Lock 10 ML Syringe IV (11:10)
[2019-05-04 13:19] LABS: Hep B Surface Antibodies Non Reactive (.)
[2019-05-04 14:12] VITALS: BP 138/22; PULSE 60; RESP 18; TEMP 36.5; O2SAT 100
== END 2019-05-04 14:25 | disposition home or self-care (01) ==
LOC: ED 11:17 → MS3 05-04 05:13
PROVIDERS: Admitting Provider Family Medicine; Emergency Provider Emergency Medicine; PCP Family Medicine; Visit Provider Family Medicine
DX: K52.9 Noninfective gastroenteritis and colitis, unspecified (principal); E87.6 Hypokalemia; Z23 Encounter for immunization; E86.0 Dehydration; R79.89 Other specified abnormal findings of blood chemistry; I10 Essential (primary) hypertension; G43.909 Migraine, unspecified, not intractable, without status migrainosus; Z79.899 Other long term (current) drug therapy; Z87.891 Personal history of nicotine dependence
CPT/HCPCS: 36415; 71046; 80053; 81001; 83605; 83690; 83735; 84484; 85025; 86704; 86705; 86706; 86708; 86709; 86803; 87340; 87633; 96361; 96372; 96374; 97802; 99218; 99251; 99285; J7030; 90686; A4216; G0378; G0463; J2405

== ENCOUNTER 2019-07-11 11:50 | Emergency (ER) | payer MEDICAID, SELFPAY ==
[2019-05-03 13:37] VITALS: BMI 25.4
[2019-07-11 11:51] VITALS: BP 206/126; PULSE 102; RESP 18; TEMP 36.6; O2SAT 99; BMI 28.7
--- NOTE | 2019-07-11 12:06 | CT_ITS ---
STUDY: CTA CHEST REASON FOR EXAM: Female, 54 years old. Dissection, chest pain x 5 days radiates down left arm. Hx TX, hypertension. RADIATION DOSAGE (If Supplied By Facility): CTDIvol = ( 6.46 ) mGy, DLP = ( 204.02 ) mGycm TECHNIQUE: The examination was performed with the intravenous administration of 100mL [id number]. Post-processing of the angiographic images was performed, with multiplanar reformation and 3D reconstruction. Individualized dose optimization techniques were used for this CT. COMPARISON: None. FINDINGS: Small benign-appearing bilateral axillary lymph nodes. Normal enhancement of the main pulmonary artery and right and left pulmonary arteries. Normal enhancement of the bilateral peripheral pulmonary arteries. There is no demonstrated pulmonary embolism. Normal thoracic aorta and visualized great vessels. There is no demonstrated aortic dissection. Normal heart and pericardium. Normal mediastinum. Normal hilar regions. Normal visualized trachea and bronchi. The lungs are well expanded. Diffuse fatty infiltration of the liver. Normal pleura. Normal chest wall structures. There are degenerative changes of thoracic spine. Normal visualized upper abdomen. CT/CTA Chest W/WO Contrast IMPRESSION: Normal CTA chest examination, without a demonstrated pulmonary embolism or arterial dissection. Fatty infiltration of the liver. Electronically Signed: Boyd Orozco, at 13:22 EDT , Service support ,
--- NOTE | 2019-07-11 12:06 | EKG12_ITS ---
Test Reason : Blood Pressure : / mmHG Vent. Rate : 082 BPM Atrial Rate : 082 BPM P-R Int : 138 ms QRS Dur : 086 ms QT Int : 364 ms P-R-T Axes : 056 030 052 degrees QTc Int : 425 ms Normal sinus rhythm Nonspecific ST and T wave abnormality Abnormal ECG Confirmed by ZAINA CHICAS, KRISTI ([id number]), senior technical editor CARMELO HICKS ([id number]) on 07/13/2019 9:34:20 AM Referred By: NELSON Confirmed By:ROGELIO MAHAJAN MD
[2019-07-11 12:22] VITALS: O2SAT 97
[2019-07-11] MEDS: Ondansetron 4 MG/2 ML Vial IV (12:23)
[2019-07-11] MEDS: Morphine 4 MG/ML Syringe IV (12:24)
[2019-07-11 12:30] LABS: Absolute Lymphocyte Count 3.02 X10^3/uL (0.83-4.51); Absolute Neutrophil Count 3.6 X10^3/uL (2.0-7.7); Basophil# 0.04 X10^3/uL; Basophil% 0.5 % (0-1); Eosinophil# 0.11 X10^3/uL; Eosinophils% 1.5 % (0-5); Hematocrit 42.2 % (37-47); Hemoglobin 14.3 g/dL (12.0-15.0); Lymphocyte # 3.02 X10^3/ul (4.0); Lymphocyte % 41.1 % (19-41); Mean Corp Hgb Conc 33.9 g/dL (32-36); Mean Corpuscular Hgb 32.4 pg (27.0-32.0); Mean Corpuscular Volume 95.5 fL (81-99); Mean Platelet Vol. 9.8 fl (6.2-12.0); Monocyte# 0.53 X10^3/uL; Monocyte% 7.2 % (0-10); NRBC Flagged by Analyzer 0 % (0-5); Neutrophil # 3.62 X10^3/uL (2.7-7.7); Neutrophil % 49.3 % (47-70); Platelet Count 328 K/mm3 (150-450); RBC Distribution Width SD 45.9 fl (35.1-43.9); Red Blood Count 4.42 M/mm3 (4.2-5.4); White Blood Count 7.4 K/mm3 (4.4-11.0)
[2019-07-11 12:46] LABS: Anion Gap 6 (5-15); BUN 10 mg/dL (7-18); BUN/Creat Ratio 13.3 RATIO (10-20); Calcium,Total 9.8 mg/dL (8.5-10.1); Chloride 106 mmol/L (98-107); Creatinine, Serum 0.75 mg/dL (0.55-1.02); EST Glomerular Filtration Rate 86 mL/min (>60); Est Glom Filt Rate - Afr Amer 104 mL/min (>60); Glucose 128 mg/dL (74-106); Potassium 3.7 mmol/L (3.5-5.1); Sodium Level 139 mmol/L (136-145)
--- NOTE | 2019-07-11 13:31 | ED.DCSUM_ITS ---
- ER Visit Summary Date of Service: 07/11/19 Chief Complaint: Chest pain History of Present Illness: The patient is a 54 F with chest pain for 6 days. The pain has been constant over her left chest and left arm. She had sharp pain today that went up into her neck. She denies any history of coronary disease and had negative cath in 2014, according to her. She denies any history of aortic disease, PE, or DVT. She is taking her blood pressure medications as prescribed. She also has a history of migraines. Former smoker. Physical Examination: Afebrile and vital signs unremarkable except for blood pressure of 206/126. Patient appears in no acute distress. Heart regular. Joelle ngs clear. Abdomen soft. Skin normal. Extremities unremarkable. Test Results: EKG showed sinus rhythm at a rate of 82 with nonspecific changes. CBC, BMP, troponin unremarkable. CTA showed no evidence of PE or dissection. Emergency Department Course and Treatment: Patient was treated with Zofran and morphine while awaiting results. She was placed on the monitor. Repeat blood pressure 141/95. Work-up is unremarkable. Patient has had pain for 6 days. Troponin remains normal. She had a negative cath in the past. I do not believe this is ACS. This is atypical chest pain. Patient is appropriate for outpatient follow-up. Treatment Plan: As above Disposition: Discharge Impression: Atypical chest pain This note was generated with Usound dictation software. It may contain incorrect words, spelling, and punctuation that were not noted in review of the chart prior to signing ED Disposition - Plan for ED Patient: Referrals: Osvaldo Banks MD [Primary Care Provider] -
--- NOTE | 2019-07-11 13:34 | ED.DEP ---
ED Disposition - Plan for ED Patient: Instructions: ED Chest Pain Atypical Unkn Cause Referrals: Osvaldo Banks MD [Primary Care Provider] -
[2019-07-11 13:55] VITALS: BP 140/86; PULSE 77; RESP 18; O2SAT 99
== END 2019-07-11 13:57 | disposition home or self-care (01) ==
LOC: ED 12:18
PROVIDERS: Emergency Provider Emergency Medicine; PCP Family Medicine
DX: R07.89 Other chest pain (principal); I10 Essential (primary) hypertension; Z87.891 Personal history of nicotine dependence
CPT/HCPCS: 71275; 80048; 84484; 85025; 93005; 96374; 96375; 99285; Q9967; A4216; J2405

== ENCOUNTER 2020-04-15 17:48 | Emergency (ER) | payer MEDICAID, SELFPAY ==
[2020-04-15 17:50] VITALS: BP 156/101; PULSE 97; RESP 17; TEMP 35.6; O2SAT 96; BMI 27.7
--- NOTE | 2020-04-15 18:24 | ED.VIS.GEN ---
History of Present Illness Chief Complaint: Lower Extremity Injury Informant: Patient Onset: Today Context: Sudden Onset Timing: Continuous Quality: Pain Location: Medial anterior right knee Current Severity: Mild Maximum Severity: Severe Worsened by: Bearing weight Relieved by: Lying Associated Symptoms: None Narrative: Patient is 55-year-old woman with history hypertension who was sent from the urgent care because of concern for DVT. Patient denies prior history of DVT. She denies chest pain or shortness of breath. She denies leg swelling or discoloration. There is no history of trauma. She has no history of gout or pseudogout. She is not on a thiazide diuretic. Patient has swelling of the knee. There is pain outpatient over the medial tibial plateau. There is pain ovation of the medial collateral ligament. There is no pain the patient over the lateral tibial plateau or lateral collateral ligament. There is no pain the patient over the patella. She denies fever or chills. She denies rash. She denies prior episode of pain. Prior similar symptoms: No Recent Illness/Hospitalization: No - Past Medical History (1) Gastroenteritis Status: Acute (2) Hypertension Status: Chronic (3) Migraine Status: Chronic Past Medical History - Allergies and Home Meds Allergies/Adverse Reactions: Allergies No Known Allergies Allergy (Verified 04/15/20 17:49) Primary Care Physician: Osvaldo Banks MD [Primary Care Provider] - Prior records reviewed: Yes Surgical History: cholecystectomy Lives: Alone - Smoking Status: Current every day smoker Alcohol: Rare Drugs: None - Family History Maternal Family History: Reports: - - Patient notes a paternal family history of diabetes. Paternal Family History: Reports: - - Patient notes that her father young but she is unclear of what and does not know any medical history for him. Review of Systems General: Denies: Chills, Fever, Malaise, Subjective Eyes: Denies: Visual changes - bilaterally, Blurred Vision - bilaterally ENT: Denies: Rhinorrhea, Sore throat Cardiovascular: Denies: Chest pain, Palpitations, Heart racing Respiratory: Denies: Dyspnea, Dyspnea on exertion Musculoskeletal: Reports: Swelling, Extremity Pain. Denies: Myalgias, Arthralgias Skin: Denies: Rash, Wounds Neurological: Denies: Weakness, Parasthesia, Numbness Endocrine: Denies: Polyuria, Polydipsia Hematologic: Denies: Easy bruising Physical Exam Vital Signs/Narrative: Vital Signs Temp Pulse Resp BP Pulse Ox 04/15/20 17:50 96.1 F L 97 17 156/101 H 96 Inital Vital Signs reviewed: Yes General: Well nourished, Well developed Eyes: Perrl, EOMI, Scleral icterus. Negative for: Pale conjunctiva Cardiovascular: Regular rate, Regular rhythm Respiratory: No distress Extremities: No edema, Tenderness - Tenderness over the lateral collateral ligament. There is tenderness over the medial tibial plateau. There is no pain the patient of the patella. The patella ballotable. There is no effusion. There is no laxity with varus valgus stress testing. She does complain of pain over the MCL. Errol', - - DP and PT pulse are palpable. She is able to extend to 180 degrees and flex to 90 degrees. She complains of discomfort with flexion past 100 degrees.. Negative for: Nontender Skin: Normal color, No rash, No Trauma. Negative for: Cyanosis, Diaphoresis, Jaundice Neurological: Alert, Oriented x3, Cranial nerves II-XII grossly intact, Normal Strength, Normal Sensation. Negative for: Normal Gait Psychological: Normal affect Diagnostic/Tx/Re-eval Chest X-Ray - ED: Read by ED Physician - Views of the right knee were obtained. There is no evidence of effusion. There is no evidence of subluxation or fracture. There is minimal degenerative changes noted. The x-ray was interpreted by me at 1856 - Medical Decision Making Patient has either a MCL strain or osteoarthritis. With no history of trauma doubt fracture. Since there is no pain with passive range of motion doubt crystal induced arthritis or pyogenic arthritis. Patient was reassessed at 1857. She still is having discomfort. She was reassessed prior to discharge. Plan is prescription for NSAIDs and follow-up with her doctor. ED Disposition - Plan for ED Patient: Disposition: Home or Assisted Living Diagnosis: MCL sprain of right knee, Osteoarthritis of right knee Instructions: ED Knee Sprain, ED Osteoarthritis, ED RICE Prescriptions: Naproxen [Naprosyn] 500 mg PO BID #14 tab Transmission Status: Pending to [id number] Referrals: Osvaldo Banks MD [Primary Care Provider] - 3-5 Days if not improving
--- NOTE | 2020-04-15 18:48 | RAD_ITS ---
STUDY: X-RAY - RIGHT KNEE REASON FOR EXAM: Female, 55 years old. PAIN MEDIAL SIDE OF KNEE JUST DISTAL TO JOINT X 2 DAYS WHEN WALKING. NO KNOWN INJURY TECHNIQUE: 4 view(s) of the knee. COMPARISON: None. FINDINGS: Normal visualized distal femur. Normal visualized proximal tibia and fibula. Normal proximal tibiofibular articulation. Mildly narrowed medial femorotibial compartment. Normal lateral femorotibial compartment. Normal patellofemoral articulation. The soft tissue structures are unremarkable. RAD/Knee 4 or More Views IMPRESSION: Mild degenerative change. No evidence for acute fracture. Electronically Signed: Osvaldo Oneal MD at 19:02 EST , Service support ,
[2020-04-15] MEDS: Naproxen 500 MG Tablet PO (18:58)
== END 2020-04-15 20:05 | disposition home or self-care (01) ==
PROVIDERS: Emergency Provider Emergency Medicine; PCP Family Medicine
DX: S83.91XA Sprain of unspecified site of right knee, initial encounter (principal); M17.11 Unilateral primary osteoarthritis, right knee; F17.200 Nicotine dependence, unspecified, uncomplicated; I10 Essential (primary) hypertension; X58.XXXA Exposure to other specified factors, initial encounter
CPT/HCPCS: 73564; 99283

== ENCOUNTER → 2024-04-03 | Outpatient (CLI) | payer MEDICAID, SELFPAY ==
--- NOTE | 2024-04-03 09:20 | US_ITS ---
STUDY: ABDOMINAL ULTRASOUND - ELASTOGRAPHY REASON FOR VISIT: Female, 59 years old. Nonalcoholic steatohepatitis TECHNIQUE: Mack scale and color doppler imaging was performed of the right upper quadrant.Liver stiffness measurements were obtained on a [employer] RS 85 ultrasound machine using a CA 1-7 probe following the SRU guidelines. 3 measurements were obtained using a 2-D-SWE method. TheIQR/M was 12% suggesting a quality data set. TECHNICAL QUALITY: Adequate. COMPARISON: No relevant prior comparison study available FINDINGS: LIVER: The liver is normal in size and shape with moderately increased echogenicity. There is no demonstrated mass lesion. Median liver stiffness measured 9.1 kPa. No focal hepatic lesion. No intrahepatic biliary ductal dilatation. There is no free fluid. GALLBLADDER AND BILIARY TREE: Cholecystectomy. The proximal common bile duct measures 0.6 cm, which is within normal limits for the patient''s age. PANCREAS: No focal abnormality is demonstrated in the pancreas. No pancreatic ductal dilatation. RIGHT KIDNEY: The right kidney measures 12.1 cm. No hydronephrosis or nephrolithiasis. No renal mass. US/Abdomen Limited IMPRESSION: Liver stiffness measures 9.1 kPa compatible with F2-F3 (Mild to moderate liver fibrosis) Metavir score. Hepatic steatosis. Electronically Signed: David Miller MD at 0:06 EST ,
== END | disposition home or self-care (01) ==
LOC: US 09:16
PROVIDERS: PCP Family Medicine; Referring Provider Physician Assistant; Visit Provider Physician Assistant
DX: R74.8 Abnormal levels of other serum enzymes (principal); K75.81 Nonalcoholic steatohepatitis (NASH)
CPT/HCPCS: 76705

== ENCOUNTER 2024-08-09 15:44 | Observation (INO) | payer MEDICAID, SELFPAY ==
[2024-08-09] VITALS (7 sets, daily range): BP systolic 140–187; BP diastolic 64–107; PULSE 53–92; RESP 16–19; TEMP 35.7–36.5; O2SAT 95–99; BMI 28.3
--- NOTE | 2024-08-09 17:06 | EDS_ITS ---
HPI History of Present Illness Chief Complaint: Nausea/Vomiting/Diarrhea Detail of Chief Complaint: Nausea, vomiting, diarrhea Informant: patient Narrative Narrative: Patient presents with vomiting and diarrhea that started 4 days ago. Patient states that she initially started with some pain in her right side 5 days ago and went to [facility] the following day where she had blood work and a CAT scan that was unremarkable. Subsequently vomiting and diarrhea started. She has been vomiting more than 10 times a day and frequent watery stools. She started taking Imodium and today she has not had any diarrhea. A lot of the abdominal pain has resolved. She denies sick contacts. Denies recent travel. She denies recent antibiotic usage. [facility] Medical History (Updated 08/09/24 @ 19:[address] Louie Bacon, DO) Old myocardial infarction Mixed hyperlipidemia GERD (gastroesophageal reflux disease) Essential hypertension Lung nodules Aneurysm of left subclavian artery Chest pain Dehydration Former tobacco use Migraine Hypertension Elevated LFTs Hypokalemia Gastroenteritis No significant past medical history Home Medications ?Medication ?Instructions ?Recorded ?Last Taken ?Type propranolol 160 mg capsule,24 160 mg PO DAILY 05/03/19 Unknown History hr,extended release famotidine 20 mg tablet 20 mg PO BID #60 tabs Unknown Rx naproxen 500 mg tablet 500 mg PO BID #14 tabs 04/15 Unknown Rx amitriptyline 25 mg tablet 25 mg PO QHS 08/19/22 Unkno wn History atorvastatin 20 mg tablet 20 mg PO QHS 08/19/22 Unknow n History cyclobenzaprine 10 mg tablet 10 mg PO BID PRN 08/19/22 Unknown History estradiol 0.01% (0.1 mg/gram) 0.5 appful vaginal .3XW 08/19/22 Unknown History vaginal cream (Estrace) loratadine 10 mg tablet 10 mg PO DAILY 08/19/22 Unkn own History omeprazole 40 mg capsule,delayed 40 mg PO DAILY Unknown History release sertraline 100 mg tablet 100 mg PO DAILY 08/19/22 Unk nown History sumatriptan succinate 6 mg/0.5 mL 6 mg subcut Q1-4H ND N 08/19/22 Unknown History subcutaneous pen injector Allergy/AdvReac Type Severity Reaction Status Date / Time No Known Allergies Allergy Verified 08/09/24 15:47 Surgical History History of left heart catheterization (LHC) (~04/29/14) Social History (Updated 08/19/22 @ 10:11 by Mirella Ha) Smoking Status: Former smoker ROS ROS ED Review of Systems ROS Unobtainable: other Constitutional Constitutional ED: Reports lethargy; Denies chills, fever(s), sweats or weight loss Eyes Eyes: Denies blurry vision, change in vision or diplopia ENT ENT ED: Denies rhinorrhea or sore throat Cardiovascular Cardiovascular: Denies chest pain, orthopnea or racing heartbeat Respiratory/Chest Respiratory/Chest: Reports dyspnea on exertion; Denies dyspnea, orthopnea or sputum Gastrointestinal Gastrointestinal: Reports abdominal pain, diarrhea, nausea and vomiting Genitourinary Genitourinary ED: Denies dysuria, hematuria or urinary frequency Musculoskeletal Musculoskeletal: Denies arthralgias, back pain, myalgias or neck pain Integumentary Denies abscess, Abrasions or rash Neurologic Neurologic: Denies headache(s) or weakness Psychiatric Psychiatric: Denies anxiety, depression or suicidal thoughts Endocrine Endocrinology: Denies polydipsia, polyphagia or polyuria Hematologic/Lymphatic Hematologic/Lymphatic: Denies easy bleeding, easy bruising or lymphadenopathy Allergic/Immunologic Allergic/Immunologic ED: Denies mouth swelling, tongue swelling or urticaria EXAM Physical Exam Const Vital Signs: 08/09/24 15:45 08/09/24 17:45 08/09/24 19:00 Temperature 96.3 F L Temperature Source Temporal Pulse Rate 92 53 L 63 Respiratory Rate 19 H 18 18 Blood Pressure 187/107 H 151/82 H Blood Pressure Mean 133 100 Pulse Ox 98 99 97 Oxygen Delivery Method Room Air Positive well nourished and well developed General Appearance ED: well developed and NAD HEENT Reports TM's clear and moist mucous membranes normocephalic and atraumatic; Negative for trauma or tenderness Tympanic Membrane ED: Yes TM's clear Eyes PERRL and EOMs intact bilaterally General Eye ED: Negative for pale conjunctiva or scleral icterus Neck no lymphadenopathy, supple and no JVD General: Negative for tenderness Chest Wall inspection of chest normal and palpation of chest normal Chest: Negative for tenderness Resp normal respiratory effort and clear to auscultation bilaterally Effort and Inspection: Negative for respiratory distress or pain with movement Auscultation: Negative for rhonchi, wheezes or diminished lung sounds Cardio regular rate, regular rhythm, S1 normal heart sound, S2 normal heart sound and no murmurs Peripheral Pulses: pulses 2+ throughout GI normal to inspection, nondistended, normoactive bowel sounds, soft to palpation, non-distended and no masses GI Narrative: Mild diffuse tenderness. There is no rebound, rigidity, or peritoneal signs. No mass palpated. Back/Spine no CVA tenderness and no thoracic nor lumbar tenderness Extremity normal to inspection General Extremety ED: Negative for edema General Extremity: Negative for edema Neuro oriented x3, CN's II-XII intact bilaterally, no sensory deficits noted and gait normal Sensorium / Orientation: awake, alert, oriented to person, oriented to place and oriented to time Motor Exam: strength 5/5 throughout and strength abnormal Psych mental status grossly normal Skin no rashes or lesions noted and no wounds MDM MDM MDM Narrative Medical decision making narrative: Patient presents with vomiting and diarrhea that has been ongoing for 4 days. She did take Imodium so the diarrhea seems to slow down today. She said she has not taken her medications in 4 days because she cannot keep anything down. She called her primary care physician's office and was told to come to the emergency department and get admitted for fluids. IV line established. CBC with differential obtained showed a slightly elevated white count of 14.7 with hemoglobin 16 and platelet count of 330. Chemistries showed a sodium that was elevated 146 with potassium 2.9 and chloride 104. BUN 13 and creatinine 0.76. Lactate was minimally elevated 2.0. Urinalysis showed 15 ketones. Patient has no signs of infection in the urine. I did obtain a CT scan of the abdomen pelvis with IV contrast that showed no acute significant findings. She also complains of a migraine and received Toradol and Reglan IV. Will discuss with h ospitalist evaluate patient for admission for IV hydration and symptom management. I ordered stool for C. difficile as well as enteric pathogens however patient has been unable to produce. Lab Data Attestation: I reviewed the patient's lab results. Labs: Laboratory Results - last 24 hr 08/09/24 08/09/24 17:15 18:15 WBC 14.7 H RBC 5.04 Hgb 16.1 H Hct 45.8 MCV 90.9 MCH 31.9 MCHC 35.2 RDW Std Deviation 42.9 RDW Coeff of Kenji 13.0 Plt Count 330 MPV 10.2 Immature Gran % (Auto) 0.400 Neut % (Auto) 64.3 Lymph % (Auto) 27.7 [place] % (Auto) 7.2 Eos % (Auto) 0.0 Baso % (Auto) 0.4 Absolute Neuts (auto) 9.4 H Absolute Lymphs (auto) 4.07 Nucleated RBC % 0 Sodium 146 H Potassium 2.9 L Chloride 104 Carbon Dioxide 26.2 Anion Gap 16 H BUN 13 Creatinine 0.76 Estim Creat Clear Calc 80.94 Est GFR (MDRD) Non-Af 91 BUN/Creatinine Ratio 17.2 Glucose 131 H Lactic Acid 2.0 Calcium 10.2 Urine Color Yellow Urine Clarity Cloudy Urine pH 6.5 Ur Specific [place] 1.015 Urine Protein 30 H Urine Glucose (UA) Normal Urine Ketones 15 H Urine Occult Blood 10 H Urine Nitrite Negative Urine Bilirubin Negative Urine Urobilinogen 4 H Ur Leukocyte Esterase 25 H Radiography Diagnostic Testing: Clinical Impression(s) from Imaging Studies Abdomen/Pelvis CT 08/09/24 18:31 IMPRESSION: 1. No acute intra-abdominal abnormality. 2. Mild hepatic steatosis. 3. Cystic lesions in both ovaries, the largest measuring 4.3 cm. Recommend nonemergent pelvic ultrasound per ACR white paper guidelines. 4. Solid pulmonary nodules measuring up to 4 mm in the right lung, consider CT chest in 12 months if patient is at high risk for malignancy per Fleischner society guidelines. Reading Location: [facility] Discharge Plan Triage Chief Complaint: Nausea/Vomiting/Diarrhea ED Provider: Louie Bacon Dx/Rx/DC Orders Clinical Impression: Gastroenteritis, Dehydration, Acute hypokalemia Prescriptions: No Action sertraline 100 mg tablet 100 mg PO DAILY atorvastatin 20 mg tablet 20 mg PO QHS loratadine 10 mg tablet 10 mg PO DAILY omeprazole 40 mg capsule,delayed release(DR/EC) 40 mg PO DAILY cyclobenzaprine 10 mg tablet 10 mg PO BID PRN sumatriptan succinate 6 mg/0.5 mL pen injector 6 mg subcut Q1-4H PRN Rx Instructions: do not exceed 2 doses in a 24 hour period estradiol [Estrace] 0.01 % (0.1 mg/gram) cream 0.5 appful vaginal .3XW amitriptyline 25 mg tablet 25 mg PO QHS propranolol 160 MG capsule,extended release 24 hr 160 mg PO DAILY famotidine 20 MG tablet 20 mg PO BID Qty: 60 0RF naproxen 500 MG tablet 500 mg PO BID Qty: 14 0RF Primary Care Provider: Osvaldo Banks Referrals: Osvaldo Banks MD [Primary Care Provider] - Print Language: Citizen Of [place] Disposition Disposition: Acute Care Hospital [facility]
[2024-08-09] MEDS: Ondansetron 4 MG/2 ML Vial IV (17:16)
[2024-08-09] MEDS: 0.9% Normal Saline (1000mL) 1,000 ML 999 ML IV (17:16)
[2024-08-09 17:48] LABS: Absolute Lymphocyte Count 4.07 X10^3/uL (0.83-4.51); Absolute Neutrophil Count 9.4 X10^3/uL (2.0-7.7); Basophil# 0.06 X10^3/uL; Basophil% 0.4 % (0-1); Hematocrit 45.8 % (37-47); Hemoglobin 16.1 g/dL (12.0-15.0); Lymphocyte # 4.07 X10^3/ul (0.83-4.51); Lymphocyte % 27.7 % (19-41); Mean Corp Hgb Conc 35.2 g/dL (32-36); Mean Corpuscular Hgb 31.9 pg (27.0-32.0); Mean Corpuscular Volume 90.9 fL (81-99); Mean Platelet Vol. 10.2 fl (6.2-12.0); Monocyte# 1.05 X10^3/uL; Monocyte% 7.2 % (0-10); NRBC Flagged by Analyzer 0 % (0-5); Neutrophil # 9.43 X10^3/uL (2.7-7.7); Neutrophil % 64.3 % (47-70); Platelet Count 330 K/mm3 (150-450); RBC Distribution Width SD 42.9 fl (35.1-43.9); Red Blood Count 5.04 M/mm3 (4.2-5.4); White Blood Count 14.7 K/mm3 (4.4-11.0)
[2024-08-09 17:50] LABS: Anion Gap 16 (5-15); BUN 13 mg/dL (4-19); BUN/Creat Ratio 17.2 RATIO (10-20); Calcium,Total 10.2 mg/dL (7.6-11.0); Carbon Dioxide 26.2 mmol/L (21.0-32.0); Chloride 104 mmol/L (98-108); Creatinine, Serum 0.76 mg/dL (0.70-1.20); EST Glomerular Filtration Rate 91 (>60); Estimated Creatinine Clearance 80.94 ml/min (50-250); Glucose 131 mg/dL (70-99); Potassium 2.9 mmol/L (3.3-5.1); Sodium Level 146 mmol/L (133-145)
[2024-08-09 18:22] LABS: Color, Urine Yellow (Yellow); Glucose, Dipstick Normal (Normal); Ketone-Dipstick 15 mg/dl (Negative); Leukocyte Esterase-Dipstick 25 /ul (Negative); Nitrite-Dipstick Negative (Negative); Occult Blood-Urine 10 /ul (Negative); Protein-Dipstick 30 mg/dl (Negative); Specific Gravity, Urine 1.015 (1.002-1.030); Urine Bilirubin Dipstick Negative (Negative); Urine Clarity Cloudy (Clear); Urine Urobilinogen 4 mg/dl (Normal); Urine pH 6.5 (5.0 - 8.0)
--- NOTE | 2024-08-09 18:31 | CT_ITS ---
PROCEDURE: ABDOMEN/PELVIS W IV CONT ONLY 08/09/2024 REASON FOR EXAM: ABDOMINAL PAIN, VOMITING AND DIARRHEA TECHNIQUE: Abdomen and pelvis CT with intravenous contrast. Coronal and Sagittal reconstruction series were provided One or more dose reduction techniques were used (e.g., Automated exposure control, adjustment of the mA and/or kV according to patient size, use of iterative reconstruction technique. RADIATION DOSE SUMMARY: CTDlvol: 29.9 mGy DLP: 803.3 mGycm COMPARISON: Abdominal ultrasound 04/03/2024 FINDINGS: Lung bases: Solid nodules measuring 4 mm in the right middle lobe (series 2, image 1) and right lower lobe (image 11). Liver: Mildly hypoattenuating. Gallbladder: Surgically absent. Spleen: Unremarkable Pancreas: Unremarkable Adrenals: Unremarkable Kidneys: No stone or hydronephrosis. Bladder: Predominantly collapsed, limiting evaluation Reproductive Organs: Cystic lesion in the left ovary measuring up to 4.3 cm and right ovary measuring 2.1 cm. Bilateral tubal ligation clips. Bowel: Hiatal hernia. No obstruction or inflammation. Unremarkable appendix. Lymph nodes: No lymphadenopathy. Vasculature: Mild diffuse atherosclerotic calcifications are noted. Peritoneum / Retroperitoneum: Unremarkable Bones: Mild degenerative changes in the lower lumbar spine. CT/Abdomen/Pelvis W IV Cont ONLY IMPRESSION: 1. No acute intra-abdominal abnormality. 2. Mild hepatic steatosis. 3. Cystic lesions in both ovaries, the largest measuring 4.3 cm. Recommend no nemergent pelvic ultrasound per ACR white paper guidelines. 4. Solid pulmonary nodules measuring up to 4 mm in the right lung, consider CT chest in 12 months if patient is at high risk for malignancy per Fleischner society guidelines. Reading Location: [id number]
[2024-08-09 19:21] LABS: Mucous, Urine 3+ /hpf (<or=2+)
[2024-08-09 19:22] LABS: Bacteria 1+ /hpf (None Seen); Squamous Epithelial Cells - UA 10-25 SEEN /hpf (5-10); White Blood Cells 5-10 SEEN /hpf (0-5)
[2024-08-09 19:23] LABS: Red Blood Cells-Urine 0-5 SEEN /hpf (0-5)
--- NOTE | 2024-08-09 19:25 | PCM.HP.STD ---
[facility] - General General Date of Admission: 08/09/24 Date of Service: 08/09/24 Chief Complaint: Nausea, Vomiting and Diarrhea. HPI Narrative AMY ALONSO, is a 59 F with a past medical history of essential hypertension; on propranolol, hyperlipidemia; on atorvastatin, overweight; with BMI of 28.3 this admission, former tobacco abuse; with subsequent lung nodules, CAD; s/p [place] with history of negative [facility] (2014) @ [facility], history of aneurysm of Left subclavian artery, history of migraine headaches; on sumatriptan prn, depression; on trazodone, sertraline and amitriptyline, seasonal allergies; on loratadine, GERD; on omeprazole and famotidine, history of gastroenteritis, history of muscle spasms; on prn cyclobenzaprine BID prn and OA who presents to [facility] ER complaining of nausea, vomiting and diarrhea. Ms. Alonso reports her symptoms began approximately 5 days prior to admission with pain in her Right side and then 4 days ago she had nausea and vomiting with bilious emesis and nonbloody diarrhea. She went to [facility] where she had blood work and a CT scan of the abdomen and pelvis that was unremarkable and was subsequently discharged home. Unfortunately, she redeveloped her GI upset with nausea and vomiting she claims up to 10 times per day with frequent watery stools. She then began taking Imodium and has not had any further diarrhea. She also admits her abdominal pain has essentially resolved. She admits to lethargy, dyspnea on exertion and migraine headache. She denies recent sick contacts, recent antibiotics or significant travel. There was no report of fever, chills, weight loss, changes in vision, runny nose, sore throat, ear pain, chest pain, palpitations, heart racing, lower extremity edema, dysuria, hematuria, arthralgias, myalgias or rash. In the ER she underwent a CT scan of the abdomen pelvis that revealed no acute intra-abdominal abnormality with mild hepatic steatosis with cystic lesions in both ovaries with the largest measuring ~4.3 cm with nonemergent pelvic ultrasound recommended and solid pulmonary nodules measuring up to ~4 mm in the Right lung with recommendation to consider CT of chest in 12 months. She was then diagnosed with suspected Viral Gastroenteritis; with Nausea, Vomiting and bilious emesis complicated by Acute Hypokalemia of 2.9 mmol/L present on admission along with UA positive for Acute Cystitis; without hematuria with Leukocytosis of 14.7 K present on admission and she was then admitted to the general medical floor for ongoing care for stay that is expected to extend beyond 2 midnights. [facility] Medical History Old myocardial infarction Mixed hyperlipidemia GERD (gastroesophageal reflux disease) Essential hypertension Lung nodules Aneurysm of left subclavian artery Chest pain Dehydration Former tobacco use Migraine Hypertension Elevated LFTs Hypokalemia Gastroenteritis No significant past medical history Home Medications ?Medication ?Instructions ?Recorded ?Last Taken ?Type propranolol 160 mg capsule,24 160 mg PO DAILY 05/03/19 Unknown History hr,extended release famotidine 20 mg tablet 20 mg PO BID #60 tabs 05/04/19 Unknown Rx naproxen 500 mg tablet 500 mg PO BID #14 tabs 04/15/20 Unknown Rx atorvastatin 20 mg tablet 20 mg PO QHS 08/19/22 Unknown History loratadine 10 mg tablet 10 mg PO DAILY 08/19/22 Unknown History omeprazole 40 mg capsule,delayed 40 mg PO DAILY 08/19/22 Unknown History release sumatriptan succinate 6 mg/0.5 mL 6 mg subcut Q1-4H PRN migraine 08/19/22 Unknown History subcutaneous pen injector headache gabapentin 300 mg capsule 300 mg PO TID 08/09/24 Unknown History ondansetron HCl 4 mg tablet 4 mg PO Q6H PRN nausea and vomiting 08/09/24 Unknown History trazodone 50 mg tablet 50 mg PO QHS 08/09/24 Unknown History Allergy/AdvReac Type Severity Reaction Status Date / Time No Known Allergies Allergy Verified 08/09/24 15:47 Surgical History History of left heart catheterization (LHC) (~04/29/14) Social History Smoking Status: Former smoker ROS ROS Narrative Review of Systems: Constitutional: Patient denies fever or chills. Eyes: Patient denies changes in vision or discharge from eyes. ENT: Patient denies runny nose, sore throat or ear pain. Resp: Patient admits to dyspnea on exertion. CV: Patient denies chest pain, palpitations, heart racing or LE edema. GI: Patient admits to abdominal pain, watery diarrhea and nausea with vomiting as per HPI. : Patient denies dysuria or hematuria. MSK: Patient denies arthralgias or myalgias. Skin: Patient denies rash, abscess, wounds or jaundice. Psych: Patient denies symptoms of uncontrolled depression or anxiety. Neuro: Patient admits to migraine headache but she denies paresthesias or focal weakness. Allergy: Patient denies lip swelling, tongue swelling or urticaria. Hematology: Patient denies easy bleeding or easy bruisability. Endocrinology: Patient denies polyuria, polydipsia, polyphagia or heat/cold intolerance. 14 point ROS otherwise negative except for positives noted above in HPI. Vital Signs Vital Signs Vital Signs: 08/09/24 15:45 08/09/24 17:45 08/09/24 19:00 Temperature 96.3 F L Temperature Source Temporal Pulse Rate 92 53 L 63 Respiratory Rate 19 H 18 18 Blood Pressure 187/107 H 151/82 H Blood Pressure Mean 133 100 Pulse Ox 98 99 97 Oxygen Delivery Method Room Air Weight Weight: 165 lb 2.02 oz Body Mass Index (BMI) 28.3 Physical Exam Const alert and oriented x3 Constitutional Narrative: Mild distress noted. General Appearance: cooperative HEENT normocephalic, head/scalp atraumatic and hearing grossly normal bilaterally HEENT Narrative: Mucous membranes dry. Eyes PERRL, EOMs intact bilaterally and conjunctivae normal Neck no lymphadenopathy, supple and no JVD Resp normal respiratory effort, no retractions, no use of accessory muscles and clear to auscultation bilaterally Cardio regular rate and regular rhythm GI normal to inspection, nondistended, normoactive bowel sounds, soft to palpation, non-tender and non-distended Extremity normal to inspection, full ROM and no clubbing, cyanosis or edema Skin Skin Narrative: Patient has no evidence of rash, abscess, wounds or jaundice. Neuro oriented x3, CN's II-XII intact bilaterally, moves all extremities and no focal motor deficits Sensorium / Orientation: awake, alert, oriented to person, oriented to place and oriented to time Speech: speech normal Psych Mood & Affect: anxious Results Medical Records Data Attestation: I reviewed the patient's medical records Lab / Micro Data Attestation: I reviewed the patient's lab results. 08/10/24 05:36 08/09/24 17:15 Labs: Laboratory Results - last 24 hr 08/09/24 17:15: WBC 14.7 H, RBC 5.04, Hgb 16.1 H, Hct 45.8, MCV 90.9, MCH 31.9, MCHC 35.2, RDW Std Deviation 42.9, RDW Coeff of Kenji 13.0, Plt Count 330, MPV 10.2, Immature Gran % (Auto) 0.400, Neut % (Auto) 64.3, Lymph % (Auto) 27.7, [place] % (Auto) 7.2, Eos % (Auto) 0.0, Baso % (Auto) 0.4, Absolute Neuts (auto) 9.4 H, Absolute Lymphs (auto) 4.07, Nucleated RBC % 0, Sodium 146 H, Potassium 2.9 L, Chloride 104, Carbon Dioxide 26.2, Anion Gap 16 H, BUN 13, Creatinine 0.76, Estim Creat Clear Calc 80.94, Est GFR (MDRD) Non-Af 91, BUN/Creatinine Ratio 17.2, Glucose 131 H, Lactic Acid 2.0, Calcium 10.2 08/09/24 18:15: Urine Color Yellow, Urine Clarity Cloudy, Urine pH 6.5, Ur Specific [place] 1.015, Urine Protein 30 H, Urine Glucose (UA) Normal, Urine Ketones 15 H, Urine Occult Blood 10 H, Urine Nitrite Negative, Urine Bilirubin Negative, Urine Urobilinogen 4 H, Ur Leukocyte Esterase 25 H, Urine RBC 0-5 SEEN, Urine WBC 5-10 SEEN, Ur Squamous Epith Cells 10-25 SEEN, Urine Bacteria 1+, Urine Mucus 3+ Imaging Radiology Impression Abdomen/Pelvis CT 08/09/24 18:31 IMPRESSION: 1. No acute intra-abdominal abnormality. 2. Mild hepatic steatosis. 3. Cystic lesions in both ovaries, the largest measuring 4.3 cm. Recommend nonemergent pelvic ultrasound per ACR white paper guidelines. 4. Solid pulmonary nodules measuring up to 4 mm in the right lung, consider CT chest in 12 months if patient is at high risk for malignancy per Fleischner society guidelines. Reading Location: [facility] Assessment & Plan Assessment/Plan (1) Gastroenteritis: (2) Acute hypokalemia: (3) Acute cystitis without hematuria: (4) Migraine: QUALIFIERS: Intractability: not intractable Migraine type: unspecified Status migrainosus presence: without status migrainosus Qualified Code(s): G43.909 - Migraine, unspecified, not intractable, without status migrainosus (5) Ovarian cyst: QUALIFIERS: Laterality: bilateral Qualified Code(s): N83.201 - Unspecified ovarian cyst, right side; N83.202 - Unspecified ovarian cyst, left side (6) Pulmonary nodules/lesions, multiple: (7) Tobacco abuse, in remission: PLAN: Plan 1. Suspected Viral Gastroenteritis; with nausea and vomiting with bilious emesis - Admit to general medical floor under aspiration and enteric precautions. Give copious IVF plus prn IV ondansetron for nausea and vomiting. Give promethazine IM prn for breakthrough nausea. Give ketorolac IV prn for [id number] (level 1-5/10) pain or fever. Give morphine IV prn for severe (level 6-10/10) pain. Finally, stool studies are pending with patient started on empiric IV metronidazole until C. difficile ruled out. 2. Acute Hypokalemia of 2.9 mmol/L present on admission due to #1 - Give supplemental IV and oral KCl and then recheck level in AM to confirm repletion. 3. Acute Cystitis; without hematuria with Leukocytosis of 14.7 K present on admission complicating #1 & #2 - Start empiric IV ceftriaxone 1g IV daily and await culture and sensitivity data. 4. Migraine Headache compounding #1 - #3 - Continue prn sumatriptan as previous. 5. CT evidence of Cystic Lesions in both Ovaries; with the largest measuring ~4.3 cm with radiologist recommending pelvic ultrasound - Patient will need to be set up with outpatient pelvic ultrasound once her acute illness resolves. 6. CT evidence of Pulmonary Nodules measuring up to ~4 mm in the Right lung, consider CT chest in 12 months if patient is at high risk for malignancy per Fleischner society guidelines in the setting of previous chronic tobacco abuse - Noted. 7. Essential hypertension; on propranolol - Maintain current regimen plus give prn hydralazine IV for systolic blood pressure > 160 mmHg. 8. Hyperlipidemia; on atorvastatin - Resume statin. 9. Overweight; with BMI of 28.3 this admission - Weight loss will be recommended. Check TSH. 10. CAD; s/p [place] with history of negative [facility] (2014) @ [facility] - Noted. 11. History of aneurysm of Left subclavian artery - Noted. 12. Depression; on trazodone, sertraline and amitriptyline - Continue current treatment. 13. Seasonal allergies; on loratadine - Resume loratadine as before. 14. GERD; on omeprazole and famotidine - Maintain PPI IV in light of #1. 15. History of muscle spasms; on prn cyclobenzaprine BID prn - Continue present therapy. 16. OA - Stable. 17. DVT prophylaxis - Enoxaparin 40 mg sq daily plus SCD's. Total time: Approximately (but not less than) 75 minutes. Charges/Coding Visit Charges Inpatient E&M: 66630 Init Hosp L3
[2024-08-09] MEDS: Dicyclomine 20 MG/2 ML Vial IM (19:43)
[2024-08-09] MEDS: Metoclopramide 10 MG/2 ML Vial 5 MG IV (19:43)
[2024-08-09] MEDS: Potassium Chloride Oral Tablet 20 MEQ 40 MEQ PO (19:44)
[2024-08-09] MEDS: Ketorolac 15 MG/ML Vial IV (19:44)
[2024-08-09] MEDS: KCL 40mEq in 0.9% NS 40 MEQ/1,000 ML IV.SOLN 125 MEQ IV (20:54)
[2024-08-09] MEDS: Pantoprazole Sodium 40 MG in 0.9% Normal Saline (100mL MB+) 100 ML 330 MG IV (20:58)
[2024-08-09 20:59] LABS: Magnesium 2.1 mg/dL (1.5-2.2)
[2024-08-09] MEDS: Atorvastatin Calcium 20 MG Tablet PO (21:01)
[2024-08-09] MEDS: traZODone 50 MG Tablet PO (21:01)
[2024-08-09] MEDS: Lactobacillis Acidophilus 1 CAP PO (21:01)
[2024-08-09] MEDS: Gabapentin 300 MG Capsule PO (21:07)
[2024-08-09] MEDS: Potassium Chloride Oral Tablet 20 MEQ 60 MEQ PO (21:08)
[2024-08-09] MEDS: Ceftriaxone 1 GM/50 ML BAG IV (21:13)
[2024-08-09 21:26] LABS: Reflex Lactate? Y
[2024-08-09 22:08] LABS: Lactic Acid 1.7 mmol/L (0.0-2.0)
[2024-08-09] MEDS: metroNIDAZOLE 500 MG/100 ML BAG 100 MG IV (22:58)
[2024-08-10 02:52] VITALS: PULSE 61
[2024-08-10 04:51] VITALS: BP 132/76; PULSE 65; RESP 16; TEMP 36.5; O2SAT 95
[2024-08-10] MEDS: KCL 40mEq in 0.9% NS 40 MEQ/1,000 ML IV.SOLN 125 MEQ IV (05:15)
[2024-08-10] MEDS: metroNIDAZOLE 500 MG/100 ML BAG 100 MG IV ×2 (05:16→14:07)
[2024-08-10] MEDS: Gabapentin 300 MG Capsule PO ×2 (05:16→14:08)
[2024-08-10 06:00] VITALS: BMI 31.1
[2024-08-10 07:00] VITALS: O2SAT 100
[2024-08-10 07:05] LABS: Absolute Lymphocyte Count 5.52 X10^3/uL (0.83-4.51); Absolute Neutrophil Count 7.6 X10^3/uL (2.0-7.7); Basophil% 0.7 % (0-1); Eosinophils% 0.7 % (0-5); Hematocrit 44.9 % (37-47); Lymphocyte # 5.52 X10^3/ul (0.83-4.51); Lymphocyte % 38.7 % (19-41); Mean Corp Hgb Conc 33.4 g/dL (32-36); Mean Corpuscular Hgb 31.6 pg (27.0-32.0); Mean Corpuscular Volume 94.7 fL (81-99); Mean Platelet Vol. 10.7 fl (6.2-12.0); Monocyte# 0.91 X10^3/uL; Monocyte% 6.4 % (0-10); NRBC Flagged by Analyzer 0 % (0-5); Neutrophil % 53.2 % (47-70); POSITIVE DIFFERENTIAL YES; Platelet Count 293 K/mm3 (150-450); RBC Distribution Width CV 13.1 % (11.6-14.6); RBC Distribution Width SD 45.5 fl (35.1-43.9); Red Blood Count 4.74 M/mm3 (4.2-5.4); White Blood Count 14.3 K/mm3 (4.4-11.0)
--- NOTE | 2024-08-10 07:21 | PN.HOSP_ITS ---
Subjective Subjective Feeling better. No further BMs. Objective Data Objective Data Vital Signs: Vital Signs Temp Pulse Resp BP Pulse Ox O2 Del Method 36.5 C L 65 16 132/76 H 95 Room Air 08/10/24 04:51 08/10/24 04:51 08/10/24 04:51 08/10/24 04:51 08/10/24 04:51 08/10/24 04:51 Oxygen Delivery Method Room Air Weight: 74.7 kg Body Mass Index (BMI) 31.1 Intake & Output: Intake and Output for Last 24 Hours 08/08/24 08/09/24 08/10/24 23:59 23:59 23:59 Intake Total 1260 / 1310 1200 / 1200 Balance 1260 / 1310 1200 / 1200 Lab / Micro Data 08/10/24 05:36 08/10/24 05:36 Labs: Laboratory Results - last 24 hr 08/09/24 17:15: WBC 14.7 H, RBC 5.04, Hgb 16.1 H, Hct 45.8, MCV 90.9, MCH 31.9, MCHC 35.2, RDW Std Deviation 42.9, RDW Coeff of Kenji 13.0, Plt Count 330, MPV 10.2, Immature Gran % (Auto) 0.400, Neut % (Auto) 64.3, Lymph % (Auto) 27.7, Kendall % (Auto) 7.2, Eos % (Auto) 0.0, Baso % (Auto) 0.4, Absolute Neuts (auto) 9.4 H, Absolute Lymphs (auto) 4.07, Nucleated RBC % 0, Sodium 146 H, Potassium 2.9 L, Chloride 104, Carbon Dioxide 26.2, Anion Gap 16 H, BUN 13, Creatinine 0.76, Estim Creat Clear Calc 80.94, Est GFR (MDRD) Non-Af 91, BUN/Creatinine Ratio 17.2, Glucose 131 H, Lactic Acid 2.0, Calcium 10.2, Magnesium 2.1, TSH 1.210 08/09/24 18:15: Urine Color Yellow, Urine Clarity Cloudy, Urine pH 6.5, Ur Specific [place] 1.015, Urine Protein 30 H, Urine Glucose (UA) Normal, Urine Ketones 15 H, Urine Occult Blood 10 H, Urine Nitrite Negative, Urine Bilirubin Negative, Urine Urobilinogen 4 H, Ur Leukocyte Esterase 25 H, Urine RBC 0-5 SEEN, Urine WBC 5-10 SEEN, Ur Squamous Epith Cells 10-25 SEEN, Urine Bacteria 1+, Urine Mucus 3+ 08/09/24 21:31: Lactic Acid 1.7 08/10/24 05:36: WBC 14.3 H, RBC 4.74, Hgb 15.0, Hct 44.9, MCV 94.7, MCH 31.6, M CHC 33.4 D, RDW Std Deviation 45.5 H, RDW Coeff of Kenji 13.1, Plt Count 293, MPV 10.7, Immature Gran % (Auto) 0.300, Neut % (Auto) 53.2, Lymph % (Auto) 38.7, Kendall % (Auto) 6.4, Eos % (Auto) 0.7, Baso % (Auto) 0.7, Absolute Neuts (auto) 7.6, Absolute Lymphs (auto) 5.52 H, Nucleated RBC % 0 Radiography Diagnostic Testing: Radiology Impression Abdomen/Pelvis CT 08/09/24 18:31 IMPRESSION: 1. No acute intra-abdominal abnormality. 2. Mild hepatic steatosis. 3. Cystic lesions in both ovaries, the largest measuring 4.3 cm. Recommend nonemergent pelvic ultrasound per ACR white paper guidelines. 4. Solid pulmonary nodules measuring up to 4 mm in the right lung, consider CT chest in 12 months if patient is at high risk for malignancy per Fleischner society guidelines. Reading Location: [facility] Physical Exam Const alert and no apparent distress HEENT head/scalp atraumatic and moist oral mucous membranes Resp normal respiratory effort, no retractions, no use of accessory muscles and clear to auscultation bilaterally Cardio regular rate, regular rhythm, S1 normal heart sound and S2 normal heart sound GI normal to inspection, nondistended, normoactive bowel sounds, soft to palpation, non-tender and non-distended Neuro Sensorium / Orientation: awake and alert Assessment & Plan Assessment/Plan (1) Gastroenteritis: PLAN: Ongoing several days prior to arrival. CT negative. enteric panel ordered, but not collected. supportive mgmt. advance diet, if tolerates, then could be discharged (2) Acute hypokalemia: PLAN: 2/2 gastroenteritis replaced earlier. monitor. PLAN: Plan Abnormal urinalysis: 5-10 WBCs. UTI ruled out. DC abx. VTE prophylaxis: LMWH Charges/Coding Visit Charges Inpatient E&M: 27387 Subs Hosp L2
[2024-08-10 07:46] LABS: ALB/GLOB Ratio 1.5 RATIO (0.9-2.4); AST(SGOT) 99 U/L (<=31); Alanine Aminotransfer ALT/SGPT 115 U/L (<=34); Albumin, Serum 4.6 g/dL (3.5-5.0); Alkaline Phosphatase 79 U/L (35-104); Anion Gap 10 (5-15); BUN 10 mg/dL (4-19); BUN/Creat Ratio 14.2 RATIO (10-20); Calcium,Total 9.2 mg/dL (7.6-11.0); Carbon Dioxide 22.3 mmol/L (21.0-32.0); Chloride 113 mmol/L (98-108); EST Glomerular Filtration Rate 100 (>60); Estimated Creatinine Clearance 81.97 ml/min (50-250); Globulin 3.1 g/dL (2.2-4.2); Glucose 91 mg/dL (70-99); Phosphorus 1.6 mg/dL (2.7-4.5); Potassium 3.9 mmol/L (3.3-5.1); Protein, Total 7.6 g/dL (5.9-8.4); Sodium Level 145 mmol/L (133-145); Total Bilirubin 1.49 mg/dL (0.00-1.30)
[2024-08-10 08:07] VITALS: BP 152/70; PULSE 57; RESP 16; TEMP 36.9; O2SAT 100
[2024-08-10] MEDS: Loratadine 10 MG Tablet PO (08:10)
[2024-08-10] MEDS: Lactobacillis Acidophilus 1 CAP PO ×2 (08:10→14:08)
[2024-08-10] MEDS: Pantoprazole Sodium 40 MG in 0.9% Normal Saline (100mL MB+) 100 ML 330 MG IV (08:11)
[2024-08-10] MEDS: Enoxaparin 40 MG/0.4 ML Syringe SC (08:11)
--- NOTE | 2024-08-10 09:50 | CASEMGMT ---
GET HOANG Assessment: Face to Face with pt for initial transition planning/care coordination assessment. GET HOANG introduced self and role at [facility], pt voices understanding and consents to assessment. Pt is A&O x4 and answers all questions appropriately at this time. Pt sitting up in chair in no distress. Care providers, pharmacy, and demographics verified/updated. Strata: 1 Admitting Dx: VGE, N/V/D, Hypokalemia, UTI and Migraine RICK PCP:Darren Specialists: Denies [facility]acy: [facility] Insurance: [facility] Prescription Benefit: yes LNOK: Brother, Vivek Living Arrangements: Pt lives with hansa and son in a trailer with 15 steps to enter. ADLs: Pt states I at baseline, she takes care of her fiance who was in an accident 2 years ago and had to have his leg amputated. He has a prosthetic now and is able to ambulate the steps. Transportation: Pt drives self and denies concerns with transportation. DME: Shower chair HHC/SNF: Denies Hx of Pt states no concerns with going home at time of dc. Pt states no further concerns/needs. CM to follow. Advised pt to ask CM if any further question/concerns/needs arise, voices understanding. Pt Goal: Home Plan: Home with family support in place. Yari DEUTSCH CM
--- NOTE | 2024-08-10 14:00 | DS.PCM_ITS ---
Providers Date of Admission: 08/09/24 Primary Care Physician: Dr. Osvaldo Banks MD Reason For Visit: VGE, N/V/D, HYPOKALEMIA, UTI & MIGRAINE RICK Diagnosis Discharge Diagnosis (1) Gastroenteritis: Status: Acute Code(s): K52.9 - Noninfective gastroenteritis and colitis, unspecified Plan: Ongoing several days prior to arrival. Suspect due to viral gastroenteritis. CT negative. enteric panel ordered, but not collected. supportive mgmt. Patient's tolerated her diet. [facility] home (2) Acute hypokalemia: Status: Acute Code(s): E87.6 - Hypokalemia Plan: 2/2 gastroenteritis replaced earlier. monitor. Plan Abnormal urinalysis: 5-10 WBCs. UTI ruled out. DC abx. VTE prophylaxis: LMWH Medications at Discharge Home Medications propranolol 160 mg capsule,24 hr,extended release 160 mg PO DAILY 05/03/19 famotidine 20 mg tablet 20 mg PO BID #60 tabs 05/04/19 naproxen 500 mg tablet 500 mg PO BID #14 tabs 04/15/20 atorvastatin 20 mg tablet 20 mg PO QHS 08/19/22 loratadine 10 mg tablet 10 mg PO DAILY 08/19/22 omeprazole 40 mg capsule,delayed release 40 mg PO DAILY 08/19/22 sumatriptan succinate 6 mg/0.5 mL subcutaneous pen injector 6 mg subcut Q1-4H PRN migraine headache 08/19/22 gabapentin 300 mg capsule 300 mg PO TID 08/09/24 ondansetron HCl 4 mg tablet 4 mg PO Q6H PRN nausea and vomiting 08/09/24 trazodone 50 mg tablet 50 mg PO QHS 08/09/24 Hospital Course Operations None Summary of Care Provided Minutes Spent on Discharge: 32 Hospital Course: Patient presents with 4 days of nausea vomiting diarrhea. Patient presented here and started on IV fluids and overall better. Patient has since tolerated diet. Patient is doing well and be discharged home. We did order enteric panel but that was not collected as patient had no further bowel moods while she was in the hospital. I suspect patient may have had a viral gastroenteritis, particularly norovirus, which been supportive management. Weight / BMI Weight Weight: 74.7 kg Body Mass Index (BMI) 31.1 ABG / Lab / Microbiology Data 08/10/24 05:36 08/10/24 05:36 Laboratory: Laboratory Results - last 24 hr 08/09/24 17:15: WBC 14.7 H, RBC 5.04, Hgb 16.1 H, Hct 45.8, MCV 90.9, MCH 31.9, MCHC 35.2, RDW Std Deviation 42.9, RDW Coeff of Kenji 13.0, Plt Count 330, MPV 10.2, Immature Gran % (Auto) 0.400, Neut % (Auto) 64.3, Lymph % (Auto) 27.7, Childress % (Auto) 7.2, Eos % (Auto) 0.0, Baso % (Auto) 0.4, Absolute Neuts (auto) 9.4 H, Absolute Lymphs (auto) 4.07, Nucleated RBC % 0, Sodium 146 H, Potassium 2.9 L, Chloride 104, Carbon Dioxide 26.2, Anion Gap 16 H, BUN 13, Creatinine 0.76, Estim Creat Clear Calc 80.94, Est GFR (MDRD) Non-Af 91, BUN/Creatinine Ratio 17.2, Glucose 131 H, Lactic Acid 2.0, Calcium 10.2, Magnesium 2.1, TSH 1.210 08/09/24 18:15: Urine Color Yellow, Urine Clarity Cloudy, Urine pH 6.5, Ur Specific [place] 1.015, Urine Protein 30 H, Urine Glucose (UA) Normal, Urine Ketones 15 H, Urine Occult Blood 10 H, Urine Nitrite Negative, Urine Bilirubin Negative, Urine Urobilinogen 4 H, Ur Leukocyte Esterase 25 H, Urine RBC 0-5 SEEN, Urine WBC 5-10 SEEN, Ur Squamous Epith Cells 10-25 SEEN, Urine Bacteria 1+, Urine Mucus 3+ 08/09/24 21:31: Lactic Acid 1.7 08/10/24 05:36: WBC 14.3 H, RBC 4.74, Hgb 15.0, Hct 44.9, MCV 94.7, MCH 31.6, M CHC 33.4 D, RDW Std Deviation 45.5 H, RDW Coeff of Kenji 13.1, Plt Count 293, MPV 10.7, Immature Gran % (Auto) 0.300, Neut % (Auto) 53.2, Lymph % (Auto) 38.7, Childress % (Auto) 6.4, Eos % (Auto) 0.7, Baso % (Auto) 0.7, Absolute Neuts (auto) 7.6, Absolute Lymphs (auto) 5.52 H, Nucleated RBC % 0, Sodium 145, Potassium 3.9, Chloride 113 H, Carbon Dioxide 22.3, Anion Gap 10, BUN 10, Creatinine 0.70, Estim Creat Clear Calc 81.97, Est GFR (MDRD) Non-Af 100, BUN/Creatinine Ratio 14.2, Glucose 91, Calcium 9.2, Phosphorus 1.6 L, Total Bilirubin 1.49 H, AST 99 H, ALT 115 H, Alkaline Phosphatase 79, Total Protein 7.6, Albumin 4.6, Globulin 3.1, Albumin/Globulin Ratio 1.5 Radiography Diagnostic Testing: Radiology Impression Abdomen/Pelvis CT 08/09/24 18:31 IMPRESSION: 1. No acute intra-abdominal abnormality. 2. Mild hepatic steatosis. 3. Cystic lesions in both ovaries, the largest measuring 4.3 cm. Recommend nonemergent pelvic ultrasound per ACR white paper guidelines. 4. Solid pulmonary nodules measuring up to 4 mm in the right lung, consider CT chest in 12 months if patient is at high risk for malignancy per Fleischner society guidelines. Reading Location: [id number]/C Instructions Discharge Diet: No restrictions (bland diet, advance as tolerated. ) DC O2, CPAP, BIPAP Needs Home O2 Discharge instructions: No Meaningful Use Info Meaningful Use Meaningful Use Diagnoses (Choose all that apply): None applicable Ischemic Stroke Statin Dosing Therapy Reference: STATIN DOSE THERAPY REFERENCE: * Patients > 75 years receive moderate or high dose statin therapy. * Patients 75 years or YOUNGER should receive HIGH intensity statin dose unless contraindicated. You will be required to document reason for non-treatment if statin daily dose does not meet guidelines. HIGH DOSE STATIN THERAPY DAILY Atorvastatin > than or = to 40 mg Rosuvastatin > than or = to 20 mg Amlodipine + Atorvastatin > than or = to 2.5/40 mg Ezetimibe + Simvastatin 10/80 mg Simvastatin 80mg Discharge Plan Admission Admit Date/Time: 08/09/24 20:07 Primary Reason for Your Visit: gastroenteritis Attending Provider: Austin Mendez Primary Care Provider: Osvaldo Banks Consulting Providers: Len Lafleur Discharge Orders/Prescriptions Prescriptions: Continued atorvastatin 20 mg tablet 20 mg PO QHS loratadine 10 mg tablet 10 mg PO DAILY omeprazole 40 mg capsule,delayed release(DR/EC) 40 mg PO DAILY sumatriptan succinate 6 mg/0.5 mL pen injector 6 mg subcut Q1-4H PRN (Reason: migraine headache) Rx Instructions: do not exceed 2 doses in a 24 hour period propranolol 160 MG capsule,extended release 24 hr 160 mg PO DAILY famotidine 20 MG tablet 20 mg PO BID Qty: 60 0RF naproxen 500 MG tablet 500 mg PO BID Qty: 14 0RF trazodone 50 mg tablet 50 mg PO QHS ondansetron HCl 4 mg tablet 4 mg PO Q6H PRN (Reason: nausea and vomiting) gabapentin 300 mg capsule 300 mg PO TID Referrals / Follow Up: Osvaldo Banks MD [Primary Care Provider] - Charges/Coding Visit Charges Inpatient E&M: 67505 Disch Hosp >30min
[2024-08-10 14:11] VITALS: BP 148/58; PULSE 69; RESP 16; TEMP 36.4; O2SAT 97
--- NOTE | 2024-08-10 15:10 | PHA.DC.MR.R ---
Pharmacy [facility] Reconciliation Pharmacy Service has performed discharge medication reconciliation for this patient. The patient's discharge medication list was reviewed for discrepancies and discrepancies were resolved. Medications at Discharge Home Medications propranolol 160 mg capsule,24 hr,extended release 160 mg PO DAILY 05/03/19 famotidine 20 mg tablet 20 mg PO BID #60 tabs 05/04/19 naproxen 500 mg tablet 500 mg PO BID #14 tabs 04/15/20 atorvastatin 20 mg tablet 20 mg PO QHS 08/19/22 loratadine 10 mg tablet 10 mg PO DAILY 08/19/22 omeprazole 40 mg capsule,delayed release 40 mg PO DAILY 08/19/22 sumatriptan succinate 6 mg/0.5 mL subcutaneous pen injector 6 mg subcut Q1-4H PRN migraine headache 08/19/22 gabapentin 300 mg capsule 300 mg PO TID 08/09/24 ondansetron HCl 4 mg tablet 4 mg PO Q6H PRN nausea and vomiting 08/09/24 trazodone 50 mg tablet 50 mg PO QHS 08/09/24
== END 2024-08-10 15:57 | disposition home or self-care (01) ==
LOC: ED 19:28 → MS3 19:47
PROVIDERS: Admitting Provider Internal Medicine; Emergency Provider Emergency Medicine; PCP Family Medicine
DX: K52.9 Noninfective gastroenteritis and colitis, unspecified (principal); E86.0 Dehydration; G43.909 Migraine, unspecified, not intractable, without status migrainosus; E87.6 Hypokalemia; E87.0 Hyperosmolality and hypernatremia; I25.10 Atherosclerotic heart disease of native coronary artery without angina pectoris; I10 Essential (primary) hypertension; E78.2 Mixed hyperlipidemia; M19.90 Unspecified osteoarthritis, unspecified site; K21.9 Gastro-esophageal reflux disease without esophagitis; R91.8 Other nonspecific abnormal finding of lung field; N83.202 Unspecified ovarian cyst, left side; N83.201 Unspecified ovarian cyst, right side; J30.2 Other seasonal allergic rhinitis; F32.A Depression, unspecified; E66.3 Overweight; Z68.28 Body mass index [BMI] 28.0-28.9, adult; Z87.891 Personal history of nicotine dependence; I25.2 Old myocardial infarction; Z79.1 Long term (current) use of non-steroidal anti-inflammatories (NSAID); Z79.899 Other long term (current) drug therapy
CPT/HCPCS: 36415; 74177; 80048; 80053; 81001; 83605; 83735; 84100; 84443; 85025; 94668; 96361; 96365; 96366; 96367; 96368; 96372; 96375; 97161; 99221; 99283; Q9967; A4216; G0378; J2405

== ENCOUNTER 2024-12-29 10:57 | Emergency (ER) | payer MEDICAID, SELFPAY ==
--- OUTSIDE RECORDS SUMMARY | 2024-12-26 08:51 | XMS RPT_ITS ---
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 Name Role Phone CHERYL SAHU Referring Unavailable BONNY, OSVALDO Primary Care Unavailable LA JACQUES Referring Unavailable BONNY, OSVALDO Primary Care Unavailable CHERYL SAHU Attending Unavailable BONNY, OSVALDO Primary Care Unavailable CHERYL SAHU Referring Unavailable BONNY, OSVALDO Primary Care Unavailable JERRY ROMO Attending Unavailable BONNY, OSVALDO Primary Care Unavailable CHERYL SAHU Attending Unavailable BONNY, OSVALDO Primary Care Unavailable CHERYL SAHU Referring Unavailable BONNY, OSVALDO Primary Care Unavailable BONNY, OSVALDO Primary Care Unavailable CHERYL SAHU Referring Unavailable BONNY, OSVALDO Primary Care Unavailable ARETHA PATTERSNO Attending Unavailab MONICA Randall Referring Unavailable BONNY, OSVALDO Primary Care Unavailable CHERYL SAHU Attending Unavailable BONNY, OSVALDO Primary Care Unavailable CHERYL SAHU Attending Unavailable BONNY, OSVALDO Primary Care Unavailable CHERYL SAHU Attending Unavailable BONNY, OSVALDO Primary Care Unavailable LA JACQUES Attending Unavailable CHERYL SAHU Referring Unavailable BONNY, OSVALDO Primary Care Unavailable CHERYL SAHU Referring Unavailable BONNY, OSVALDO Primary Care Unavailable MEL SULLIVAN Referring Unavailable BONNY, OSVALDO Primary Care Unavailable CHERYL SAHU Attending Unavailable OSVALDO SUE Primary Care Unavailable RANDY QUILES Admitting Unavailable OSVALDO SUE MD Referring Unavailable OSVALDO SUE MD Consulting Unavailable RANDY QUILES Attending Unavailable RANDY QUILES Primary Care Unavailable PROVIDER, UNKNOWN Consulting Unavailable SANDIP GA Admitting Unavailable OSVALDO SUE MD Referring Unavailable OSVALDO SUE MD Consulting Unavailable SANDIP AG Attending Unavailable SANDIP AG Primary Care Unavailable PROVIDER, UNKNOWN Consulting Unavailable OSVALDO SUE MD Referring Unavailable OSVALDO SUE MD Consulting Unavailable JET MELLO DO Admitting Unavailable JET MELLO DO Attending Unavailable JET MELLO DO Primary Care Unavailable PROVIDER, UNKNOWN Consulting Unavailable CHERYL SAHU Admitting Unavailable OSVALDO SUE MD Consulting Unavailable CHERYL SAHU Attending Unavailable CHERYL SAHU Primary Care Unavailable PROVIDER, UNKNOWN Consulting Unavailable OSVALDO SUE MD Referring Unavailable OSVALDO SUE MD Consulting Unavailable RANDY QUILES Admitting Unavailable RANDY QUILES Attending Unavailable RANDY QUILES Primary Care Unavailable PROVIDER, UNKNOWN Consulting Unavailable OSVALDO SUE MD Referring Unavailable OSVALDO SUE MD Consulting Unavailable COVERDAAVIS DESAI MD Admitting Unavailable COVERDAGISELLE, AVIS CHICAS Attending Unavailable COVERAVIS GUSTAFSON MD Primary Care Unavailable PROVIDER, UNKNOWN Consulting Unavailable PROVIDER, UNKNOWN Referring Unavailable OSVALDO SUE Primary Care Unavailable PROBLEMS DATE TYPE CONDITION / CODE ATTENDING STATUS [facility] 12/26/2024 Active Closed fracture of right upper extremity, initial encounter / S42.301A(ICD-10) ARETHA PATTERSON Active [facility] 12/26/2024 Active Right shoulder p ain, unspecified chronicity / M25.511(ICD-10) NA Active [facility] 10/30/2024 Admitting Diagnosis Radiculopathy, lumbar region / M5416(ICD-10) CHERYL SAHU Active [facility] 10/30/2024 Principle Diagnosis Radiculopathy, lumbar region / M5416(ICD-10) CHERYL SAHU Active [facility] 10/30/2024 Secondary Diagnosis Lumbago with sciatica, right side / M5441(ICD-10) CHERYL SAHU Active [facility] 10/30/2024 Secondary Diagnosis Lumbago with sciatica, left side / M5442(ICD-10) CHERYL SAHU Active [facility] 10/30/2024 Secondary Diagnosis Other chronic pain / G8929(ICD-10) CHERYL SAHU Active [facility] 10/24/2024 Active Acute bilateral low back pain with bilateral sciatica / M54.42(ICD-10) CHERYL SAHU Active [facility] 10/24/2024 Active Acute bilateral low back pain with bilateral sciatica / M54.41(ICD-10) CHERYL SAHU Active [facility] 10/24/2024 Active Radiculopathy of lumbar region / M54.16(ICD-10) CHERYL SAHU Active [facility] 10/24/2024 Active Chronic midline low back pain with bilateral sciatica / M54.41(ICD-10) CHERYL SAHU Active [facility] 10/24/2024 Active Chronic midline low back pain with bilateral sciatica / M54.42(ICD-10) CHERYL SAHU Active [facility] 10/24/2024 Active Chronic midline low back pain with bilateral sciatica / G89.29(ICD-10) CHERYL SAHU Active [facility] 10/24/2024 Active Urinary incontin ence, unspecified type / R32(ICD-10) CHERYL SAHU Active [facility] 10/24/2024 Active Plantar fasciiti s / M72.2(ICD-10) CHERYL SAHU Active [facility] 09/17/2024 Active Encounter for gynecological examination (general) (routine) without abnormal findings / Z01.419(ICD-10) JERRY ROMO Active [facility] 09/17/2024 Active Encounter for screening for human papillomavirus (HPV) / Z11.51(ICD-10) JERRY ROMO Active [facility] 09/17/2024 Active Pap smear for cervical cancer screening / Z12.4(ICD-10) JERRY ROMO Active [facility] 09/17/2024 Active Encounter for screening mammogram for breast cancer / Z12.31(ICD-10) JERRY ROMO Active [facility] 09/17/2024 Active Cysts of both ov jose alfredo / N83.201(ICD-10) JERRY ROMO Active [facility] 09/17/2024 Active Cysts of both ov jose alfredo / N83.202(ICD-10) JERRY ROMO Active [facility] 08/22/2024 Active Lung nodules / R91.8(ICD-10) CHERYL SAHU Active [facility] 08/22/2024 Active Ovarian cyst, bilateral / N83.201(ICD-10) CHERYL SAHU Active [facility] 08/22/2024 Active Ovarian cyst, bilateral / N83.202(ICD-10) CHERYL SAHU Active [facility] 05/02/2024 Active Cervicogenic hea dache / G44.86(ICD-10) LA JACQUES Active [facility] 05/02/2024 Active Chronic daily headache / R51.9(ICD-10) LA JACQUES Active [facility] 05/02/2024 Active Spinal stenosis of cervical region / M48.02(ICD-10) LA JACQUES Active [facility] 05/02/2024 Active Gait abnormality / R26.9(ICD-10) LA JACQUES Active [facility] 03/14/2024 Active Elevated liver enzymes / R74.8(ICD-10) NA Active [facility] 07/21/2022 Active Aneurysm of left subclavian artery (HCC) / I72.8(ICD-10) NA Active [facility] 07/18/2021 Active Elevated hemoglo bin A1c / R73.09(ICD-10) NA Active [facility] 2020 Active Tension headache / G44.209(ICD-10) NA Active [facility] 2020 Active Essential hypertension / I10(ICD-10) NA Active [facility] 07/24/2014 Active Anemia, unspecif ied type / D64.9(ICD-10) NA Active [facility] 2020 Active Migraine without status migrainosus, not intractable, unspecified migraine type / G43.909(ICD-10) CHERYL SAHU Active [facility] 02/29/2024 Active Hypertensive urg ency / I16.0(ICD-10) CHERYL SAHU Active [facility] 01/19/2024 Active Right elbow pain / M25.521(ICD-10) Active [facility] 01/19/2024 Active Right forearm pa in / M79.631(ICD-10) Active [facility] PROCEDURES No Procedure Records Found RESULTS PROGRESS Observed: 12/28/2024 9:08 AM Status: COMPLETED Source: [facility] HNO ID: [id number] Author: ARETHA PATTERSON, DO Service: ? Author Type: Physician Type: Progress Notes Filed: 12/28/2024 09:10 Note Text: Reason for Visit/Chief Complaint The patient is a 59-year-old female presenting for follow-up of a right proximal humerus fracture. Patient presents with: Right Shoulder - New, Fracture, Pain History of Present Illness: PAIN EVALUATION 12/26/2024 0954 Pain Level: 10 Pain Location: Shoulder-Right Description: Spasm;Aching Duration Units: Days Frequency: Continuous Intervention/Comfort measure: Medication;Relaxation;Reposition;Positioning virgie Miguel HPI: Right Shoulder Pain: - Norma Alonso fell on right shoulder 2 days ago while running in the rain; shoes gave out. - Evaluated at [facility] post-fall. - Pain rated as 10/10. - Taking Percocet 5/325 mg, but Norma reports inadequate pain relief; only prescribed 10 tablets. - Denies numbness or tingling. - Denies head trauma or loss of consciousness during the fall. - Also sustained minor injuries to the knee and hand. Review of Systems: Patient did not have, and does not currently have, any weight loss, malaise, fever, chills, headache, chest pain, chest pressure, palpitations, cough, shortness of breath, orthopnea, paroxsymal nocturnal dyspnea, nausea, vomiting, diarrhea, constipation, melena, hematochezia, urinary difficulties, prolonged bleeding, easily bruising, heat or cold intolerance, new onset joint pain or swelling, new onset extremity weakness or numbness, new onset auditory or visual disturbances, lightheadedness, dizziness, partial loss of consciousness or full loss of consciousness. Current Outpatient Medications on File Prior to Visit Medication Sig gabapentin (NEURONTIN) 300 mg capsule Take 1 capsule by mouth three times a day for 90 days. cyclobenzaprine (FLEXERIL) 10 mg tablet Take 1 tablet by mouth three times a day as needed for muscle spasm. traZODone (DESYREL) 50 mg tablet Take 1 tablet by mouth daily at bedtime. atorvastatin (LIPITOR) 20 mg tablet Take 1 tablet by mouth daily at bedtime. For cholesterol. propranolol ER (INDERAL LA) 160 mg Cs24 Take 1 capsule by mouth once daily. omeprazole (PRILOSEC) 40 mg capsule Take 1 capsule by mouth once daily. escitalopram oxalate (LEXAPRO) 20 mg tablet Take 1 tablet by mouth once daily. famotidine (PEPCID) 20 mg tablet Take 1 tablet by mouth two times a day. loratadine (CLARITIN) 10 mg tablet Take 1 tablet by mouth once daily. SUMAtriptan (IMITREX STATDOSE PEN) 6 mg/0.5 mL pen Inject 0.5 mL subcutaneously as needed for migraine headache (see administration instructions). May repeat in 1 hour if needed. Max of 12 mg in 24 hrs. estradiol (ESTRACE) 0.01 % (0.1 mg/gram) vaginal cream Use 0.5g vaginally at bedtime for 2 weeks then 3 times/weeks for maintenance. (Patient not taking: Reported on 12/26/2024) No current facility-administered medications on file prior to visit. ALLERGIES No Known Allergies Physical Exam: Vitals: There were no vitals taken for this visit. Psych: Pleasant, good affect and mood General Appearance: Well appearing, alert, in no acute distress, well-hydrated, well nourished.. Skin: Skin color, texture, turgor normal, no suspicious rashes or lesions. Peripheral Pulses: Normal. Neurologic: Gait normal. Reflexes normal and symmetric. Sensation grossly intact.. Lymph Nodes: No cervical lymphadenopathy, No supraclavicular lymphadenopathy, No axillary lymphadenopathy., and No inguinal lymphadenopathy.. Respiratory: No recent pulmonary infection, hemoptysis, chronic cough, or shortness of breath at rest Rheumatologic: Joint deformities: right shoulder pain after fall, denies pain in other joints Right Hand Exam Right hand exam is normal. Tenderness The patient is experiencing no tenderness. Range of Motion The patient has normal right wrist ROM. Wrist Extension: normal Flexion: normal Pronation: normal Supination: normal Muscle Strength The patient has normal right wrist strength. Tests Phalen?s Sign: negative Tinel's sign (median nerve): negative Pietro's test: negative Other Erythema: absent Sensation: normal Pulse: present Comments: B/l med/uln/rad/ax nerves intact Left Hand Exam Left hand exam is normal. Tenderness The patient is experiencing no tenderness. Range of Motion The patient has normal left wrist ROM. Wrist Extension: normal Flexion: normal Pronation: normal Supination: normal Muscle Strength The patient has normal left wrist strength. Tests Phalen?s Sign: negative Tinel's sign (median nerve): negative Pietro's test: negative Other Erythema: absent Sensation: normal Pulse: present Right Shoulder Exam Other Sensation: normal Pulse: present Comments: B/l med, uln, rad, ax nerves intact Left Shoulder Exam Left shoulder exam is normal. Tenderness The patient is experiencing no tenderness. Range of Motion Active abduction: normal Passive abduction: normal Extension: normal External rotation: normal Forward flexion: normal Internal rotation 0 degrees: normal Internal rotation 90 degrees: normal Muscle Strength Abduction: 5/5 Internal rotation: 5/5 External rotation: 5/5 Supraspinatus: 5/5 Subscapularis: 5/5 Biceps: 5/5 Tests Apprehension: negative Reevse test: negative Cross arm: negative Impingement: negative Other Erythema: absent Sensation: normal Pulse: present Imaging: Imaging: - Right Shoulder X-ray: Proximal humerus fracture with maintained alignment. Assessment and Plan: 1. Closed fracture of right upper extremity, initial encounter (S42.301A) 2. Unspecified fracture of upper end of right humerus, initial encounter for closed fracture (S42.201A) - Acute, non-displaced fracture of the upper end of the right humerus confirmed by imaging; injury occurred 2 days ago. - No evidence of neurovascular compromise on exam. - Sling immobilization with strict rest for 2 weeks. - Repeat X-rays in 2-3 weeks to confirm alignment and healing. - Plan to initiate physical therapy after 2-3 weeks if repeat imaging is satisfactory. - Follow-up in 2-3 weeks with SASHA Jaeger for repeat X-rays. - Educated patient on expected healing timeline (6 weeks to 3 months) and rationale for immobilization. 3. Acute pain of right shoulder (M25.511) - Pain rated as 10/10; current prescription of oxycodone/acetaminophen 5/325 mg insufficient. - Start Percocet for pain management. - Advised that pain should improve over time, with the first few days being the most severe. Today, in detail, through a thorough evaluation, we discussed possible etiologies of pain and our plans for further diagnostic and therapeutic interventions. We discussed strategies for decreasing pain and improving strength, stability and motion. Patient's questions were answered in detailed. Patient verbalizes understanding and agrees with the treatment plan as discussed. 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 Patient/authorized brewery representative agreed to proceed Aretha Restrepo.P.H. XR SHLDR >/=3V AP/AMRIT AP/OTH R RT Observed: 12/26/2024 9:28 AM Status: F Source: [facility] * * *Final Report* * * DATE OF EXAM: Dec 26 2024 9:28AM SANAM [id number] - XR SHLDR >/=3V AP/AMRIT AP/OTHR RT / PROCEDURE REASON: M25.511-Right shoulder pain, unspecified chronicity * * * * Physician Interpretation * * * * EXAM(s): XR SHLDR >/=3V AP/AMRIT AP/OTHR RT EXAM DATE/TIME: 12/26/2024 9:28 AM HISTORY: 59 years old Clinical information: Right shoulder pain, unspecified chronicity RIGHT SHOULDER PAIN Supraspinatus outlet view Total of 4V TECHNIQUE: Images: XR SHLDR >/=3V AP/AMRIT AP/OTHR RT Comparison: None. RESULT: Findings: The AC joint is moderately narrowed comminuted fracture of the anatomic neck and head of the humerus noted. The acromiohumeral interval is maintained. IMPRESSION: Comminuted fracture proximal humerus Globe Changer: PSCB Transcribe Date/Time: Dec 28 2024 3:36P Dictated by : REECE DISLA DO This examination was interpreted and the report reviewed and electronically signed by: REECE DISLA DO on Dec 28 2024 3:40PM EST [id number] CNOV Observed: 12/26/2024 9:15 AM Status: COMPLETED Source: [facility] Office Visit (ORMDNA) NORMA ALONSO ([id number]) 1965 F Date Time Provider Department 12/26/24 9:15 AM ARETHA PATTERSON During your visit today, we recorded the following information about you: Aretha Patterson DO 12/28/2024 9:10 AM Signed Reason for Visit/Chief Complaint The patient is a 59-year-old female presenting for follow-up of a right proximal humerus fracture. Patient presents with: Right Shoulder - New, Fracture, Pain History of Present Illness: PAIN EVALUATION 12/26/2024 0954 Pain Level: 10 Pain Location: Shoulder-Right Description: Spasm;Aching Duration Units: Days Frequency: Continuous Intervention/Comfort measure: Medication;Relaxation;Reposition;Positioning [place], sling HPI: Right Shoulder Pain: - Norma Alonso fell on right shoulder 2 days ago while running in the rain; shoes gave out. - Evaluated at [facility] post-fall. - Pain rated as 10/10. - Taking Percocet 5/325 mg, but Norma reports inadequate pain relief; only prescribed 10 tablets. - Denies numbness or tingling. - Denies head trauma or loss of consciousness during the fall. - Also sustained minor injuries to the knee and hand. Review of Systems: Patient did not have, and does not currently have, any weight loss, malaise, fever, chills, headache, chest pain, chest pressure, palpitations, cough, shortness of breath, orthopnea, paroxsymal nocturnal dyspnea, nausea, vomiting, diarrhea, constipation, melena, hematochezia, urinary difficulties, prolonged bleeding, easily bruising, heat or cold intolerance, new onset joint pain or swelling, new onset extremity weakness or numbness, new onset auditory or visual disturbances, lightheadedness, dizziness, partial loss of consciousness or full loss of consciousness. Current Outpatient Medications on File Prior to Visit Medication Sig gabapentin (NEURONTIN) 300 mg capsule Take 1 capsule by mouth three times a day for 90 days. cyclobenzaprine (FLEXERIL) 10 mg tablet Take 1 tablet by mouth three times a day as needed for muscle spasm. traZODone (DESYREL) 50 mg tablet Take 1 tablet by mouth daily at bedtime. atorvastatin (LIPITOR) 20 mg tablet Take 1 tablet by mouth daily at bedtime. For cholesterol. propranolol ER (INDERAL LA) 160 mg Cs24 Take 1 capsule by mouth once daily. omeprazole (PRILOSEC) 40 mg capsule Take 1 capsule by mouth once daily. escitalopram oxalate (LEXAPRO) 20 mg tablet Take 1 tablet by mouth once daily. famotidine (PEPCID) 20 mg tablet Take 1 tablet by mouth two times a day. loratadine (CLARITIN) 10 mg tablet Take 1 tablet by mouth once daily. SUMAtriptan (IMITREX STATDOSE PEN) 6 mg/0.5 mL pen Inject 0.5 mL subcutaneously as needed for migraine headache (see administration instructions). May repeat in 1 hour if needed. Max of 12 mg in 24 hrs. estradiol (ESTRACE) 0.01 % (0.1 mg/gram) vaginal cream Use 0.5g vaginally at bedtime for 2 weeks then 3 times/weeks for maintenance. (Patient not taking: Reported on 12/26/2024) No current facility-administered medications on file prior to visit. ALLERGIES No Known Allergies Physical Exam: Vitals: There were no vitals taken for this visit. Psych: Pleasant, good affect and mood General Appearance: Well appearing, alert, in no acute distress, well-hydrated, well nourished.. Skin: Skin color, texture, turgor normal, no suspicious rashes or lesions. Peripheral Pulses: Normal. Neurologic: Gait normal. Reflexes normal and symmetric. Sensation grossly intact.. Lymph Nodes: No cervical lymphadenopathy, No supraclavicular lymphadenopathy, No axillary lymphadenopathy., and No inguinal lymphadenopathy.. Respiratory: No recent pulmonary infection, hemoptysis, chronic cough, or shortness of breath at rest Rheumatologic: Joint deformities: right shoulder pain after fall, denies pain in other joints Right Hand Exam Right hand exam is normal. Tenderness The patient is experiencing no tenderness. Range of Motion The patient has normal right wrist ROM. Wrist Extension: normal Flexion: normal Pronation: normal Supination: normal Muscle Strength The patient has normal right wrist strength. Tests Phalen?s Sign: negative Tinel's sign (median nerve): negative Pietro's test: negative Other Erythema: absent Sensation: normal Pulse: present Comments: B/l med/uln/rad/ax nerves intact Left Hand Exam Left hand exam is normal. Tenderness The patient is experiencing no tenderness. Range of Motion The patient has normal left wrist ROM. Wrist Extension: normal Flexion: normal Pronation: normal Supination: normal Muscle Strength The patient has normal left wrist strength. Tests Phalen?s Sign: negative Tinel's sign (median nerve): negative Pietro's test: negative Other Erythema: absent Sensation: normal Pulse: present Right Shoulder Exam Other Sensation: normal Pulse: present Comments: B/l med, uln, rad, ax nerves intact Left Shoulder Exam Left shoulder exam is normal. Tenderness The patient is experiencing no tenderness. Range of Motion Active abduction: normal Passive abduction: normal Extension: normal External rotation: normal Forward flexion: normal Internal rotation 0 degrees: normal Internal rotation 90 degrees: normal Muscle Strength Abduction: 5/5 Internal rotation: 5/5 External rotation: 5/5 Supraspinatus: 5/5 Subscapularis: 5/5 Biceps: 5/5 Tests Apprehension: negative Reeves test: negative Cross arm: negative Impingement: negative Other Erythema: absent Sensation: normal Pulse: present Imaging: Imaging: - Right Shoulder X-ray: Proximal humerus fracture with maintained alignment. Assessment and Plan: 1. Closed fracture of right upper extremity, initial encounter (S42.301A) 2. Unspecified fracture of upper end of right humerus, initial encounter for closed fracture (S42.201A) - Acute, non-displaced fracture of the upper end of the right humerus confirmed by imaging; injury occurred 2 days ago. - No evidence of neurovascular compromise on exam. - Sling immobilization with strict rest for 2 weeks. - Repeat X-rays in 2-3 weeks to confirm alignment and healing. - Plan to initiate physical therapy after 2-3 weeks if repeat imaging is satisfactory. - Follow-up in 2-3 weeks with SASHA Jaeger for repeat X-rays. - Educated patient on expected healing timeline (6 weeks to 3 months) and rationale for immobilization. 3. Acute pain of right shoulder (M25.511) - Pain rated as 10/10; current prescription of oxycodone/acetaminophen 5/325 mg insufficient. - Start Percocet for pain management. - Advised that pain should improve over time, with the first few days being the most severe. Today, in detail, through a thorough evaluation, we discussed possible etiologies of pain and our plans for further diagnostic and therapeutic interventions. We discussed strategies for decreasing pain and improving strength, stability and motion. Patient's questions were answered in detailed. Patient verbalizes understanding and agrees with the treatment plan as discussed. 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 Patient/authorized brewery representative agreed to proceed Aretha Farah.Osito. M.P.H. Referring Provider: MONICA MEANS [[id number]] Allergies As of Date: 12/26/2024 (No Known Allergies) Date Reviewed: 12/26/2024 Reviewed by: Sean Ortiz MA - Fully Assessed Reason for Visit: New [219621] Fracture [4131] Pain [78] Visit Diagnoses:Closed fracture of right upper extremity, initial encounter [S42.301A] Unspecified fracture of upper end of right humerus, initial encounter for closed fracture [S42.201A] Acute pain of right shoulder [M25.511] Order(s):CONSULT TO ORTHOPAEDICS [9002] Order #: [id number]: 1 oxyCODONE-acetaminophen (PERCOCET) 5-325 mg tabletTake 1 tablet by mouth every 4 hours as needed for pain for up to 5 days. for pain.Disp: 20 tabletRfl: 0 Prescriptions as of 12/28/2024 - oxyCODONE-acetaminophen (PERCOCET) 5-325 mg tablet Take 1 tablet by mouth every 4 hours as needed for pain for up to 5 days. for pain. - gabapentin (NEURONTIN) 300 mg capsule Take 1 capsule by mouth three times a day for 90 days. - cyclobenzaprine (FLEXERIL) 10 mg tablet Take 1 tablet by mouth three times a day as needed for muscle spasm. - traZODone (DESYREL) 50 mg tablet Take 1 tablet by mouth daily at bedtime. - atorvastatin (LIPITOR) 20 mg tablet Take 1 tablet by mouth daily at bedtime. For cholesterol. - propranolol ER (INDERAL LA) 160 mg Cs24 Take 1 capsule by mouth once daily. - omeprazole (PRILOSEC) 40 mg capsule Take 1 capsule by mouth once daily. - escitalopram oxalate (LEXAPRO) 20 mg tablet Take 1 tablet by mouth once daily. - famotidine (PEPCID) 20 mg tablet Take 1 tablet by mouth two times a day. - loratadine (CLARITIN) 10 mg tablet Take 1 tablet by mouth once daily. - SUMAtriptan (IMITREX STATDOSE PEN) 6 mg/0.5 mL pen Inject 0.5 mL subcutaneously as needed for migraine headache (see administration instructions). May repeat in 1 hour if needed. Max of 12 mg in 24 hrs. - estradiol (ESTRACE) 0.01 % (0.1 mg/gram) vaginal cream Use 0.5g vaginally at bedtime for 2 weeks then 3 times/weeks for maintenance. Problem List As Of Date 12/26/2024 Noted Resolved Heart attack (HCC) [I21.9] 07/24/2014 Essential hypertension [I10] 07/24/2014 Anxiety disorder [F41.9] 07/24/2014 Anemia [D64.9] 07/24/2014 Migraine headache [G43.909] Environmental allergies [Z91.09] 10/06/2018 Tension headache [G44.209] 10/06/2018 Well adult exam [Z00.00] 10/06/2018 History of OR (myocardial infarction) [I25.2] 07/11/2019 Former smoker [Z87.891] 2020 Lung nodules [R91.8] 2020 Elevated LFTs [R79.89] 2020 GERD without esophagitis [K21.9] 12/12/2020 Elevated hemoglobin A1c [R73.09] 07/18/2021 Medication management [Z79.899] 07/18/2021 Metabolic dysfunction-associated steatohepatiti*08/17/2021 Female genital prolapse [N81.9] 08/17/2021 Pelvic pain [R10.2] 10/06/2021 Levator spasm [M62.838] 11/17/2021 Mixed stress and urge urinary incontinence [N39*11/17/2021 Cystocele, midline [N81.11] 11/17/2021 Screening for colon cancer [Z12.11] 06/04/2022 Situational depression [F43.21] 06/04/2022 Aneurysm of left subclavian artery (HCC) [I72.8]07/21/2022 Ovarian cyst, bilateral [N83.201, N83.202] 08/29/2024 Thickened endometrium [R93.89] 08/29/2024 Prescriptions ordered this encounter Disp Refills Start End OXYCODONE-ACETAMINOPHEN 5 MG-325 MG * 20 t* 0 12/26/2024 12/31/2024 Route: PO Sig: Take 1 tablet by mouth every 4 hours as needed for pain for up to 5 days. for pain. Medications Discontinued During This Encounter Prescriptions - HYDROcodone-acetaminophen (NORCO) 5-325 mg per tablet (Discontinued) Letter Text Encounter Status:Closed by ARETHA PATTERSON on 12/28/24 PROGRESS Observed: 12/26/2024 9:00 AM Status: COMPLETED [facility]: [id number] Author: KARISSA COPPOLA RT(R) Service: Radiology Author Type: Technologist Type: Progress Notes Filed: 12/26/2024 09:29 Note Text: Radiology Service Progress Note PATIENT NAME: Norma Alonso DATE OF SERVICE: December 26, 2024 TIME: 9:29 AM PATIENT IDENTITY VERIFICATION COMPLETED USING TWO (2) IDENTIFIERS: Name and Date of confirmed by patient verbally. FALL SCREENING: Has the patient had 2 falls in the last year or 1 fall with injury or currently using an Ambulatory Assistive Device (Walker, Cane, Wheelchair, Crutches, etc.)? No PATIENT GENDER DATA: Assigned female at . status: : No status: NO. PATIENT RELEVANT IMPLANT DATA REVIEWED: Not Applicable PATIENT PRESENTS WITH AN IMPLANTABLE OR ATTACHED BI APPLICATION DEVELOPER: No RADIOLOGY DEPARTMENT: General X-ray: Exam(s) Completed: Upper Extremity X-Ray(s): Shoulder, AP / TRUE AP / AXILLARY / SUPRA OUTLET right PERIPHERAL IV DATA: Not applicable SIGNED BY: RT Jonna(R) December 26, 2024 9:29 AM PROGRESS Observed: 12/25/2024 10:19 AM Status: COMPLETED Source: [facility]NO ID: [id number] Author: YVONNE MASON MA Service: ? Author Type: Gravity Manager Type: Progress Notes Filed: 12/25/2024 10:19 Note Text: Scan on 12/25/2024 7:56 AM by Provider, JOSE Abarca: CBCD, PT INR, CMP CNPN Observed: 12/25/2024 12:00 AM Status: COMPLETED Source: [facility] Telephone (evidanzaPWS) NORMA ALONSO ([id number]) 1965 F Date Time Provider Department 12/25/24 OSVALDO SUE evidanzaPWS During your visit today, we recorded the following information about you: Salome Barnes RN 12/25/2024 8:56 AM Signed Patient calls and states that she fell yesterday evening. Patient reports that was seen in [place] and she was diagnosed with a broken right arm (around the arm pit). Patient was referred to an orthopedic doctor, Dr. Larsen ([facility]). [facility] does not take patient's insurance. Patient asking if a referral can be placed so that she can she an orthopedic doctor for this? Please review and advise, GET Jane Danielle, [email or web address] WRAPPER 12/25/2024 9:34 AM Signed Please let patient know I have placed referral and assist her in scheduling. Salome Barnes RN 12/25/2024 10:25 AM Signed Patient called and notified that referral placed. Patient transferred to carpet mechanic to schedule appointment. Salome Barnes RN Allergies As of Date: 12/25/2024 (No Known Allergies) Date Reviewed: 10/24/2024 Reviewed by: Breann Davis LPN - Fully Assessed Reason for Visit: Orders [681] Primary Visit Diagnosis:Closed fracture of right upper extremity, initial encounter [S42.301A] Order(s):CONSULT TO ORTHOPAEDICS [4826] Order #: [id number]: 1 FUTURE Prescriptions as of 12/25/2024 - gabapentin (NEURONTIN) 300 mg capsule Take 1 capsule by mouth three times a day for 90 days. - cyclobenzaprine (FLEXERIL) 10 mg tablet Take 1 tablet by mouth three times a day as needed for muscle spasm. - traZODone (DESYREL) 50 mg tablet Take 1 tablet by mouth daily at bedtime. - atorvastatin (LIPITOR) 20 mg tablet Take 1 tablet by mouth daily at bedtime. For cholesterol. - propranolol ER (INDERAL LA) 160 mg Cs24 Take 1 capsule by mouth once daily. - omeprazole (PRILOSEC) 40 mg capsule Take 1 capsule by mouth once daily. - escitalopram oxalate (LEXAPRO) 20 mg tablet Take 1 tablet by mouth once daily. - famotidine (PEPCID) 20 mg tablet Take 1 tablet by mouth two times a day. - loratadine (CLARITIN) 10 mg tablet Take 1 tablet by mouth once daily. - SUMAtriptan (IMITREX STATDOSE PEN) 6 mg/0.5 mL pen Inject 0.5 mL subcutaneously as needed for migraine headache (see administration instructions). May repeat in 1 hour if needed. Max of 12 mg in 24 hrs. - estradiol (ESTRACE) 0.01 % (0.1 mg/gram) vaginal cream Use 0.5g vaginally at bedtime for 2 weeks then 3 times/weeks for maintenance. Problem List As Of Date 12/25/2024 Noted Resolved Heart attack (HCC) [I21.9] 07/24/2014 Essential hypertension [I10] 07/24/2014 Anxiety disorder [F41.9] 07/24/2014 Anemia [D64.9] 07/24/2014 Migraine headache [G43.909] Environmental allergies [Z91.09] 10/06/2018 Tension headache [G44.209] 10/06/2018 Well adult exam [Z00.00] 10/06/2018 History of OR (myocardial infarction) [I25.2] 07/11/2019 Former smoker [Z87.891] 2020 Lung nodules [R91.8] 2020 Elevated LFTs [R79.89] 2020 GERD without esophagitis [K21.9] 12/12/2020 Elevated hemoglobin A1c [R73.09] 07/18/2021 Medication management [Z79.899] 07/18/2021 Metabolic dysfunction-associated steatohepatiti*08/17/2021 Female genital prolapse [N81.9] 08/17/2021 Pelvic pain [R10.2] 10/06/2021 Levator spasm [M62.838] 11/17/2021 Mixed stress and urge urinary incontinence [N39*11/17/2021 Cystocele, midline [N81.11] 11/17/2021 Screening for colon cancer [Z12.11] 06/04/2022 Situational depression [F43.21] 06/04/2022 Aneurysm of left subclavian artery (HCC) [I72.8]07/21/2022 Ovarian cyst, bilateral [N83.201, N83.202] 08/29/2024 Thickened endometrium [R93.89] 08/29/2024 Encounter Status:Closed by SALOME BARNES on 12/25/24 HAND 2 VIEW LT Observed: 12/24/2024 7:18 PM Status: F Source: [address] ? [place] [address] ? Patient: NORMA ALONSO Phone#: : 1965 Age: 59 Gender: F Pt. Type: ER Account: [id number] Location: [facility] Ordering: DR. ALBARRAN COVERDALE Exam Date: 12/24/2024/19:06 Family Phys: OSVALDO SUE Charge Code: [id number] Physician: [place] Order #: [id number] Dose#: PROCEDURE: X-RAY HAND LT 2 VIEWS COMPARISON: None. INDICATIONS: Pain. FINDINGS: BONES: Diffuse bony demineralization. No fracture or dislocation. Degenerative changes at the 1st carpometacarpal articulation with joint space loss, spurring and subchondral sclerosis. SOFT TISSUES: Negative. No visible soft tissue swelling. EFFUSION: None visible. OTHER: Negative. CONCLUSION: 1. No acute osseous abnormality 2. Degenerative changes of the 1st carpometacarpal articulation Dictated by: Serenity Krause MD on 12/25/2024 at 10:29 Approved by: Serenity Krause MD on 12/25/2024 at 10:31 KNEE 2 VIEWS RT Observed: 12/24/2024 7:17 PM Status: F Source: [address] ? [place] [address] ? Patient: NORMA ALONSO Phone#: : 1965 Age: 59 Gender: F Pt. Type: ER Account: [id number] Location: [facility] Ordering: DR. AVIS TREVIÑO Exam Date: 12/24/2024/19:09 Family Phys: OSVALDO SUE Charge Code: [id number] Physician: [place] Order #: [id number] Dose#: PROCEDURE: X-RAY KNEE RT 2 VIEWS COMPARISON: None. INDICATIONS: Pain. FINDINGS: BONES: No fracture or dislocation. Minimal spurring at the medial tibial plateau. Artifact from clothing somewhat limits evaluation. SOFT TISSUES: Negative. No visible soft tissue swelling. EFFUSION: None visible. OTHER: Negative. CONCLUSION: 1. No appreciable acute osseous abnormality Dictated by: Serenity Krause MD on 12/25/2024 at 10:31 Approved by: Serenity Krause MD on 12/25/2024 at 10:33 SHOULDER COMPLETE RT Observed: 7:16 PM Status: F Source: [address] ? [place] [address] ? Patient: NORMA ALONSO Phone#: : 1965 Age: 59 Gender: F Pt. Type: ER Account: [id number] Location: 052 Ordering: DR. AVIS TREVIÑO Exam Date: 12/24/2024/18:58 Family Phys: OSVALDO TobiasMarco Antonio KIMBLEEY Charge Code: [id number] Physician: [place] Order #: [id number] Dose#: PROCEDURE: X-RAY SHOULDER COMPLETE RT MIN 2 VIEWS COMPARISON: None. INDICATIONS: Fall. FINDINGS: BONES: Fracture of the right humeral head neck junction. The greater tuberosity is fractured. Humeral head is maintained in alignment with the glenoid. Diffuse bony demineralization. SOFT TISSUES: Negative. No visible soft tissue swelling. EFFUSION: None visible. OTHER: Negative. CONCLUSION: 1. Proximal humeral fracture at the head neck junction. Dictated by: Serenity Krause MD on 12/25/2024 at 10:25 Approved by: Serenity Krause MD on 12/25/2024 at 10:29 BMP WITH EGFR Collected: 12/24/2024 4:38 PM Status: F Source: [facility] TYPE CODE TESTS RESULT OUT OF RANGE REFERENCE UNITS LAB BMP with eGFR(LOINC) BMP with eGFR Result Comment: BASIC METABO LIC PANEL LAB SODIUM(LOINC) SODIUM 138 136 - 145 mmol/l LAB POTASSIUM(LOINC ) POTASSIUM 4.1 3.5 - 5.1 mmol/L LAB CHLORIDE(LOINC) CHLORIDE 100 98 - 107 mmol/L LAB CO2(LOINC) CO2 30.9 21.0 - 32.0 mmol/L LAB GLUCOSE(LOINC) GLUCOSE 123 High 74 - 106 mg/dl LAB BUN(LOINC) BUN 9 7 - 18 mg/dl LAB CREATININE(LOIN C) CREATININE 0.75 0.55 - 1.02 mg/dl LAB CALCIUM(LOINC) CALCIUM 9.5 8.5 - 10.1 mg/dl LAB ANION GAP(LOINC) ANION GAP 11 10 - 20 mmol/L LAB AGE(LOINC) AGE 59 years LAB eGFR(LOINC) eGFR >60 60 - 999 ML/MINUTE LAB eGFR(AA)(LOINC) eGFR(AA) >60 60 - 999 ML/MIN [place] Result Comment: ACCORDING TO THE NATIONAL KIDNEY DISEASE EDUCATION PROGRAM(NKDE), A NORMAL eGFR IS A VALUE GREATER THAN OR EQUAL TO 60 ML/MIN/1.73 SQ METERS. CHRONIC KIDNEY DISEASE: <60mL/MIN/1.73 SQ METERS KIDNEY FAILURE: <15mL/MIN/1.73 SQ METERS THIS TEST SHOULD ONLY BE USED FOR PATIENTS 18 YEARS OF AGE AND OLDER. Performed By: #### [id number] ## ## [facility],[address] [place] [address] CBC + DIFF Collected: 5 4:38 PM Status: F Source: [facility] TYPE CODE TESTS RESULT OUT OF RANGE REFERENCE UNITS LAB CBC + DIFF(LOINC) CBC + DIFF Result Comment: CBC-COMPLETE BLOOD COUNT LAB WBC(LOINC) WBC 15.1 High 4.5 - 10.8 x 10EE3/UL LAB RBC(LOINC) RBC 4.80 4.10 - 5.30 x 10EE6/UL LAB HEMOGLOBIN(VERO NC) HEMOGLOBIN 15.1 12.0 - 16.0 g/dl LAB HEMATOCRIT(VERO NC) HEMATOCRIT 43.8 34.0 - 46.0 % LAB MCV(LOINC) MCV 91 80 - 99 fl LAB MCH(LOINC) MCH 31 27 - 33 pg LAB MCHC(LOINC) MCHC 34 32 - 36 X10 3 LAB RDW/CV(LOINC) RDW/CV 13.3 12.0 - 15.6 % LAB PLATELET(LOINC ) PLATELET 356 150 - 450 x10EE3/UL LAB MPV(LOINC) MPV 8.2 6.6 - 10.5 fl Result Comment: AUTOMATED DI FFERENTIAL LAB NEUT %(LOINC) NEUT % 51.9 46.0 - 76.0 % LAB LYMPH %(LOINC) LYMPH % 38.4 20.0 - 45.0 % LAB MONOS %(LOINC) MONOS % 6.5 0.0 - 10.0 % LAB EO %(LOINC) EO % 2.8 0.0 - 7.0 % LAB BASO %(LOINC) BASO % 0.3 0.0 - 2.0 % LAB Lymph #(LOINC) Lymph # 5.78 High 0.80 - 2.80 x10EE 3/UL LAB Neut #(LOINC) Neut # 7.82 High 1.50 - 7.10 x10EE3 /UL LAB Republic #(LOINC) Republic # 0.98 0.20 - 1.00 x10EE3 /UL LAB EO #(LOINC) EO # 0.42 0.00 - 0.50 x10EE3/U L LAB Baso #(LOINC) Baso # 0.05 0.00 - 0.10 x10EE3 /UL LAB MANUAL DIFF(LOINC) MANUAL DIFF N/A LAB MORPHOLOGY(VERO NC) MORPHOLOGY N/A Performed By: #### [id number] ## ## [facility],[address] [place] [address] PROTHROMBIN TIME AND INR Collected: 12/24/2024 4:38 P M Status: F Source: [facility] TYPE CODE TESTS RESULT OUT OF RANGE REFERENCE UNITS LAB PROTHROMBIN TIME AND INR(LOINC) PROTHROMBIN TIME AND INR Result Comment: PROTHROMBIN TIME AND INR LAB PT-COUMADIN(VERO NC) PT-COUMADIN 12.0 9.3 - 14.1 sec LAB INR(LOINC) INR 1.0 0.8 - 1.2 Result Comment: THE HEMOS IL THROMBOPLASTIN REAGENT USED IN THE PROTHROMBIN TIME TEST INTERACTS WITH THE DRUG CUBICIN (DAPTOMYCIN) AND WILL RESULT IN FALSELY ELEVATED PT / INR RESULTS INR INTERPRETATION INR INDICATION PREVENTION AND TREATMENT OF THROMBOEMBOLISM ASSOCIATED WITH: 2.0 - 3.0 ATRIAL FIBRILLATION, BIOPROSTHETIC HEART VALVES, PULMONARY EMBOLISM, VENOUS THROMBOSIS, SYSTEMIC EMBOLISM POST MYOCARDIAL INFARCTION 2.5 - 3.5 MECHANICAL HEART VALVES Performed By: #### [id number] ## ## [facility],[address] [place] [address] PROGRESS Observed: 12/18/2024 10:01 AM Status: COMPLETED Source: [facility] ID: [id number] Author: YVONNE MASON MA Service: ? Author Type: Gravity Manager Type: Progress Notes Filed: 12/21/2024 08:28 Note Text: Scan on 12/17/2024 5:03 PM by Provider, External, PA-C: CXR done at [place] Scan on 12/20/2024 12:03 PM by Provider, External, PA-C: Urine culture BACTERIA UR CULT Observed: 12/17/2024 6:33 PM Status: F Source: [facility] ORGANISM ID: 1 10,000 -<50,000 CFU/ml Normal urogenital parmjit Performed By: #### [id number] ### # [facility] CLIA [id number] [address] [place] [address] URINALYSIS Collected: 6:33 PM Status: F Source: [facility] TYPE CODE TESTS RESULT OUT OF RANGE REFERENCE UNITS LAB URINALYSIS(VERO NC) URINALYSIS Result Comment: URINALYSIS LAB Specimen Type(LOINC) Specimen Type R LAB Color(LOINC) Color mal NORMAL: YELLOW LAB Clarity(LOINC) Clarity sl.cloudy VIDA L: CLEAR LAB ph(LOINC) ph 6 NORMAL: 5.0-8.0 LAB Protein(LOINC) Protein 100 Abnormal VIDA L: NEGATIVE LAB Glucose(LOINC) Glucose NORM VIDA L: NORMAL LAB Ketone(LOINC) Ketone 50 Abnormal NORMAL : NEGATIVE LAB Bilirubin(LOIN C) Bilirubin NEG NORMAL: NEGATIVE LAB Blood(LOINC) Blood 10 Abnormal NORMAL: NEGATIVE LAB Urobilinog(VERO NC) Urobilinog 4 Abnormal NORMAL: NORMAL LAB Sp Montgomery(LOINC) Sp Montgomery 1.015 NORMAL: 1.010-1.030 LAB Nitrite(LOINC) Nitrite NEG VIDA L: NEGATIVE LAB Leukocytes(VERO NC) Leukocytes 25 Abnormal NORMAL: NEGATIVE LAB Microscopic(LO INC) Microscopic SEE BELOW Result Comment: MICROSCOPIC LAB Wbc(LOINC) Wbc 1-5 0-5/hpf LAB Rbc(LOINC) Rbc 0-5 0-3/hpf LAB Casts(LOINC) Casts SEE BELOW LAB Hyaline(LOINC) Hyaline 1-5 NORMAL: NONE LAB Crystals(LOINC ) Crystals NONE LAB Amorphous(LOIN C) Amorphous 1+ LAB Bacteria(LOINC ) Bacteria 1+ LAB Epi Cells(LOINC) Epi Cells MANY LAB Mucous(LOINC) Mucous NONE LAB Yeast(LOINC) Yeast NONE Performed By: #### [id number] ## ## [facility],[address] [place] [address] URINE CULTURE [CCL] Observed: 12/17/2024 6:33 PM Status: F Source: [facility] URCUL See Results Below See Below CULTURE, URINE NORMAL UROGENITAL PARMJIT 10,000 -<50,000 CFU/ml Normal urogenital parmjit SOURCE: Urine (Nonspecific) [facility] [address] [place] [address] Bhupendra Hu III, M.D. [id number] Performed By: #### [id number] ## ## [facility],[address] [place] [address] CMP WITH EGFR Collected: 6:30 PM Status: F Source: [facility] TYPE CODE TESTS RESULT OUT OF RANGE REFERENCE UNITS LAB CMP with eGFR(LOINC) CMP with eGFR Result Comment: COMPREHENSIV E METABOLIC PANEL LAB SODIUM(LOINC) SODIUM 145 136 - 145 mmol/l LAB POTASSIUM(LOIN C) POTASSIUM 3.1 Low 3.5 - 5.1 mmol/L LAB CHLORIDE(LOINC ) CHLORIDE 107 98 - 107 mmol/L LAB CO2(LOINC) CO2 29.3 21.0 - 32.0 mmol/L LAB GLUCOSE(LOINC) GLUCOSE 120 High 74 - 106 mg/dl LAB BUN(LOINC) BUN 15 7 - 18 mg/dl LAB CREATININE(VERO NC) CREATININE 0.66 0.55 - 1.02 mg/dl LAB AST/SGOT(LOINC ) AST/SGOT 80 High 13 - 39 U/L LAB ALK PHOS(LOINC) ALK PHOS 87 46 - 116 U/L LAB CALCIUM(LOINC) CALCIUM 8.7 8.5 - 10.1 mg/dl LAB TOTAL PROTEIN(LOINC) TOTAL PROTEIN 7.2 6.4 - 8.2 g/dl LAB ALBUMIN(LOINC) ALBUMIN 3.8 3.4 - 5.0 g/dL LAB GLOBULIN(LOINC ) GLOBULIN 3.4 1.5 - 3.8 G/DL LAB A/G RATIO(LOINC) A/G RATIO 1.1 0.9 - 1.6 LAB TOTAL BILI(LOINC) TOTAL BILI 1.4 High 0.2 - 1.0 mg/dl LAB B/C RATIO(LOINC) B/C RATIO 23 0 - 30 ratio LAB ALT/SGPT(LOINC ) ALT/SGPT 138 High 16 - 63 U/L LAB ANION GAP(LOINC) ANION GAP 12 10 - 20 mmol/L LAB AGE(LOINC) AGE 59 years LAB eGFR(LOINC) eGFR >60 60 - 999 ML/MINUT E LAB eGFR(AA)(LOINC ) eGFR(AA) >60 60 - 999 ML/MINUT E Result Comment: ACCORDING TO THE NATIONAL KIDNEY DISEASE EDUCATION PROGRAM(NKDE), A NORMAL eGFR IS A VALUE GREATER THAN OR EQUAL TO 60 ML/MIN/1.73 SQ METERS. CHRONIC KIDNEY DISEASE: <60mL/MIN/1.73 SQ METERS KIDNEY FAILURE: <15mL/MIN/1.73 SQ METERS THIS TEST SHOULD ONLY BE USED FOR PATIENTS 18 YEARS OF AGE AND OLDER. Performed By: #### [id number] ## ## [place] [id number] INFLUENZA VIRUS RAPID A/B Observed: 12/03 5:14 PM Status: F Source: [facility] INFLUENZA A NEGATIVE INFLUENZA B NEGATIVE INTERNAL NEG QC PASS INTERNAL POS QC PASS EXTERNAL QC DONE? YES SEND TO IC? TEJA NEGATIVE TEST RESULT DOES NOT EXCLUDE INFECTION WITH INFLUENZA A OR B. THEREFORE, THE RESULTS OBTAINED FROM THIS FLU TEST SHOULD BE USED IN CONJUCTION WITH CLINICAL FINDINGS TO MAKE AN ACCURATE DIAGNOSIS. A POSITIVE RESULT DOES NOT RULE OUT CO-INFECTIONS WITH OTHER PATHOGENS OR IDENTIFY ANY SPECIFIC INFLUENZA A VIRUS SUBTYPE.CO-INFECTION WITH INFLUENZA A AND B IS RARE. IT IS RECOMMENDED THAT DUAL POSITIVE RESULTS BE CONFIRMED BY VIRAL CULTURE OR AN FDA-CLEARED INFLUENZA A AND B MOLECULAR ASSAY. INDIVIDUALS WHO HAVE RECEIVED NASALLY ADMINISTERED INFLUENZA A VACCINE MAY TEST POSITIVE IN COMMERCIALLY AVAILABLE INFLUENZA RAPID DIAGNOSTIC TESTS FOR UP TO THREE DAYS. RESULT CRITICAL? NO Performed By: #### [id number] ## ## [facility],[address] [place], [place] [id number] CORONAVIRUS (SARS) ANTIGEN TEST Collect ed: 12/17/2024 5:14 PM Status: F Source: [facility] TYPE CODE TESTS RESULT OUT OF RANGE REFERENCE UNITS LAB SARS ANTIGEN(LOINC) SARS ANTIGEN NEGATIVE NORMAL: NEGATIVE LAB INTERNAL CONTROL(LOINC) INTERNAL CONTROL PASS LAB EXTERNAL QC DONE?(LOINC) EXTERNAL QC DONE? YES LAB SEND TO IC?(LOINC) SEND TO IC? YES Result Comment: SARS-CoV-2 THIS TEST IS BEING USED UNDER THE FDA EUA PROCEDURE. THIS ASSAY HAS BEEN VALIDATED AT [facility] FOR USE WITH NASAL AND NASOPHARYNGEAL SWAB SPECIMENS. INTERPRETIVE DATA TEST RESULTS SHOULD ALWAYS BE CONSIDERED IN THE CONTEXT OF CLINICAL OBSERVATIONS AND EPIDEMIOLOGICAL DATA IN MAKING FINAL DIAGNOSIS AND PATIENT MANAGEMENT DECISIONS. PATIENT MANAGEMENT SHOULD FOLLOW CURRENT CDC GUIDELINES. THE AUREA SARS ANTIGEN JADEN DOES NOT DIFFERENTIATE BETWEEN SARS-CoV & SARS-CoV-2. A POSITIVE TEST RESULT INDICATES THE PRESENCE OF SARS-CoV-2 NUCLEOCAPSID PROTEIN ANTIGEN, AND THE PATIENT IS INFECTED WITH THE VIRUS AND PRESUMED TO BE CONTAGIOUS. A NEGATIVE TEST RESULT FOR THIS TEST MEANS THAT SARS-CoV-2 NUCLEOCAPSID PROTEIN ANTIGEN WAS NOT PRESENT IN THE SPECIMEN ABOVE THE LIMIT OF DETECTION. HOWEVER, A NEGATIVE RESULT DOES NOT RULE OUT COVID-19 AND SHOULD NOT BE USED THE SOLE BASIS FOR TREATMENT OR PATIENT MANAGEMENT DECISIONS. A NEGATIVE RESULT DOES NOT EXCLUDE THE POSSIBILITY OF COVID-19. NEGATIVE RESULTS, FROM PATIENTS WITH SYMPTOM ONSET BEYOND FIVE DAYS, SHOULD BE TREATED PRESUMPTIVE AND CONFIRMATION WITH A MOLECULAR ASSAY, IF NECESSARY, FOR PATIENT MANAGEMENT, MAY BE PERFORMED. WHEN DIAGNOSTIC TESTING IS NEGATIVE, THE POSSIBLILTY OF A FALSE NEGATIVE RESULT SHOULD BE CONSIDERED IN THE CONTEXT OF A PATIENT'S RECENT EXPOSURES AND THE PRESENCE OF CLINICAL SIGNS AND SYMPTOMS CONSISTENT WITH COVID-19. THE POSSIBILITY OF A FALSE NEGATIVE RESULT SHOULD ESPECIALLY BE CONSIDERED IF THE PATIENT'S RECENT EXPOSURES OR CLINICAL PRESENTATION INDICATE THAT COVID-19 IS LIKELY, AND DIAGNOSTIC TESTS FOR OTHER CAUSES OF ILLNESS (e.g., OTHER RESPIRATORY ILLNESS) ARE NEGATIVE. IF COVID-19 IS STILL SUSPECTED BASED ON EXPOSURE HISTORY TOGETHER WITH OTHER CLINICAL FINDINGS, RE-TESTING SHOULD BE CONSIDERED BY HEALTHCARE PROVIDERS IN CONSULTATION WITH PUBLIC HEALTH AUTHORITIES. Performed By: #### [id number] ## ## [facility],[address] [place] [address] LIPASE Collected: 5 5:10 PM Status: F Source: [facility] TYPE CODE TESTS RESULT OUT OF RANGE REFERENCE UNITS LAB LIPASE(LOINC) LIPASE 12.0 Low 15.0 - 78.0 U/L Result Comment: *PLEASE NOTE THAT RANGES FOR LIPASE HAVE CHANGED OF 04/01/23 DUE TO AN ASSAY UPDATE BY THE CLINICAL COUNSELOR.THE NEW ASSAY RANGE IS 6-250 U/L, WITH A REFERENCE RANGE OF 16-77 U/L. Performed By: #### [id number] ## ## [facility],[address] [place] [address] CBC + DIFF Collected: 5 5:10 PM Status: F Source: [facility] TYPE CODE TESTS RESULT OUT OF RANGE REFERENCE UNITS LAB CBC + DIFF(LOINC) CBC + DIFF Result Comment: CBC-COMPLETE BLOOD COUNT LAB WBC(LOINC) WBC 14.0 High 4.5 - 10.8 x 10EE3/UL LAB RBC(LOINC) RBC 5.67 High 4.10 - 5.30 x 10EE6/UL LAB HEMOGLOBIN(VREO NC) HEMOGLOBIN 17.7 High 12.0 - 16.0 g/dl LAB HEMATOCRIT(VERO NC) HEMATOCRIT 51.5 High 34.0 - 46.0 % LAB MCV(LOINC) MCV 91 80 - 99 fl LAB MCH(LOINC) MCH 31 27 - 33 pg LAB MCHC(LOINC) MCHC 34 32 - 36 X10 3 LAB RDW/CV(LOINC) RDW/CV 13.5 12.0 - 15.6 % LAB PLATELET(LOINC ) PLATELET 363 150 - 450 x10EE3/UL LAB MPV(LOINC) MPV 9.0 6.6 - 10.5 fl Result Comment: AUTOMATED DI FFERENTIAL LAB NEUT %(LOINC) NEUT % 70.8 46.0 - 76.0 % LAB LYMPH %(LOINC) LYMPH % 22.7 20.0 - 45.0 % LAB MONOS %(LOINC) MONOS % 5.9 0.0 - 10.0 % LAB EO %(LOINC) EO % 0.4 0.0 - 7.0 % LAB BASO %(LOINC) BASO % 0.2 0.0 - 2.0 % LAB Lymph #(LOINC) Lymph # 3.17 High 0.80 - 2.80 x10EE 3/UL LAB Neut #(LOINC) Neut # 9.87 High 1.50 - 7.10 x10EE3 /UL LAB Republic #(LOINC) Republic # 0.82 0.20 - 1.00 x10EE3 /UL LAB EO #(LOINC) EO # 0.06 0.00 - 0.50 x10EE3/U L LAB Baso #(LOINC) Baso # 0.03 0.00 - 0.10 x10EE3 /UL LAB MANUAL DIFF(LOINC) MANUAL DIFF N/A LAB MORPHOLOGY(VERO NC) MORPHOLOGY N/A Performed By: #### [id number] ## ## [facility],[address] [place] [address] CHEST 1 VIEW Observed: 12/17/2024 4:54 PM Status: F Source: [place] [id number] Patient: NORMA ALONSO Phone#: : [phone] Age: 59 Gender: F Pt. Type: ER Account: [id number] Location: [facility] Ordering: RANDY QUILES Exam Date: 12/17/2024/16:40 Family Phys: OSVALDO SUE Charge Code: [id number] Physician: [place] Order #: [id number] Dose#: PROCEDURE: X-RAY CHEST 1 VIEW COMPARISON: [facility], , CHEST 1 VIEW, 06/21/2024, 11:08. INDICATIONS: Cough. FINDINGS: LUNGS: Normal. No significant pulmonary parenchymal abnormalities. VASCULATURE: Normal. Unremarkable pulmonary vasculature. CARDIAC: Normal. No cardiac silhouette abnormality or cardiomegaly. MEDIASTINUM: Normal. No visible mass or adenopathy. PLEURA: Normal. No effusion or pleural thickening. BONES: Normal. No fracture or visible bony lesion. OTHER: Negative. CONCLUSION: No acute disease. Dictated by: Elise Strauss MD on 12/17/2024 at 16:57 Approved by: Elise Strauss MD on 12/17/2024 at 16:59 ED VISIT SUMMARY Observed: 12/17/2024 4:11 PM Status: F Source: [facility] Visit Overview - NILES ALONSO, : 1965, , [place] [address] [id number] 12/17/2024 Patient: NORMA ALONSO Sex: Female : 1965 Age: 59y 12/20/2024 07:23 AM EDT ED Arrival:16:11 12/17/2024 Status: Recent Travel:no EDT Language:eng Adv Directive:No Isolation Status: Infectious Disease Ethnicity:N Fall Risk:no risk Exposure:no Measurements:5'1 / 154.9 Self-Harm Status:risk Sepsis Screen:negative cm 160.0 lb / 72.6 kg Chief Complaint:RUNNY NOSE, SINUS CONGESTION, SINUS DRAINAGE, (7 days), and (Reginaldo) ALLERGIES No Known Drug Allergies HOME MEDICATIONS atorvastatin 20 mg tablet: 1 tablet once a day . gabapentin 300 mg capsule: 1 capsule three times a day . loratadine 10 mg tablet: 1 tablet once a day . 1 of 4 Visit Overview - NORMA ALONSO, : 1965, , omeprazole 40 mg capsule,delayed release: 1 capsule once a day . propranolol ER 160 mg capsule,24 hr,extended release: 1 capsule once a day . trazodone 50 mg tablet: 1 tablet once a day . PAST MEDICAL HISTORY / PROBLEMS fatty liver Gastroesophageal Reflux Disease Headache Hyperlipidemia Hypertension Myocardial Infarction See nurses notes PAST SURGICAL HISTORY Cholecystectomy Tubal Ligation SOCIAL HISTORY Smoking status: No Alcohol use: No Drug use: No ED COURSE MEDICATIONS GIVEN IN EMERGENCY DEPARTMENT 17:10 12/17/24 IV NS 0.9 % 1000 mL 999 mL/hr 17:14 12/17/24 Zofran IVP 4 mg 17:17 12/17/24 Bentyl IM 20 mg 18:39 12/17/24 IV NS 0.9 % 1000 mL 999 mL/hr 18:41 12/17/24 DiphenhydrAMINE (Benadryl) IVP 25 mg 18:41 12/17/24 Reglan IVP 10 mg 18:41 12/17/24 KetorOLAC (Toradol) IVP 15 mg cefTRIAXone (Rocephin) IVPB 1gm/50ml NS 1 g 20:23 12/17/24 diluted in sodium chloride IVPB 0.9 % Minibag+ 50 mL 100 mL/hr 2 of 4 Visit Overview - NORMA ALONSO, : 1965, , IV SITE INFORMATION INTAKE OUTPUT REASSESMENT (most recent) 17:22 12/17/24. GENERAL / NEURO / PSYCH: Alert. Oriented X 4. Appears in pain. ( Pt arrives ambulatory to ER#6 c/o vomiting, diarrhea, sinus congestion, and body aches. PT reports the family has all been sick but she has not been getting any better. Pt states she has had complaints for as week.). HEENT: Mucous membranes are dry. RESPIRATORY: Respirations not labored. Chest nontender. CVS: Capillary refill less than 2 seconds. Pulses within normal limits. GI / : The patient has had nausea and diarrhea. Abdomen soft and nontender and normal bowel sounds. SKIN: Skin intact. Skin is warm and dry. Normal skin turgor. VITAL SIGNS First Vitals Last Vitals Temp 16:32 12/17/24 97.5 F Temp 21:00 12/17/24 BP 16:32 12/17/24 172/105 BP 21:00 12/17/24 147/82 HR 16:32 12/17/24 103 HR 21:00 12/17/24 76 RR 16:32 12/17/24 16 RR 21:00 12/17/24 O2 Sat 16:32 12/17/24 97% O2 Sat 21:00 12/17/24 Pain 16:32 12/17/24 10 Pain 21:00 12/17/24 ETCO2 16:32 12/17/24 ETCO2 21:00 12/17/24 GCS 16:32 12/17/24 GCS 21:00 12/17/24 RTS 16:32 12/17/24 RTS 21:00 12/17/24 PROCEDURES NURSING INTERVENTIONS LABS / STUDIES LABS / STUDIES ORDERED CBC w Diff Chest 1V CMP Flu Swab (Influenzae AAg) 3 of 4 Visit Overview - NORMA ALONSO, : 1965, , Lipase Rapid COVID (SARS) ANTIGEN TEST Urinalysis Urine Culture [CCL] CLINICAL IMPRESSION ACUTE URINARY TRACT INFECTION WITH CYSTITIS. NO HEMATURIA VOMITING WITH NAUSEA AND DEHYDRATION 4 of 4 ED VITALS FLOW SHEET Observed: 5 4:11 PM Status: F Source: [facility] NORMA Carlos, : 1965, , Vital Sign Flow Sheet [address] [place] [address] [id number] 12/17/2024 Patient: NORMA ALONSO Sex: Female : 1965 Age: 59y Measurements Wt: 72.6 kg, Ht/Rafy: 61.0 in, BMI: 30.23 Measured Gloria Time BP MAP HR RR O2Sat ETCO2 Temp n GCS RTS 21:00 147/82 101 76 12/17/2024 20:45 136/93 101 80 12/17/2024 20:30 120/68 85 77 12/17/2024 20:15 139/86 100 69 12/17/2024 20:13 72 94% 12/17/2024 20:00 144/87 106 72 12/17/2024 19:53 77 96% 12/17/2024 19:48 82 94% 12/17/2024 1 of 4 [place] - NORMA ALONSO, : 1965, , 19:45 134/70 93 72 12/17/2024 19:43 74 97% 12/17/2024 19:38 70 96% 12/17/2024 19:30 140/68 92 79 12/17/2024 19:28 80 96% 12/17/2024 19:23 82 97% 12/17/2024 19:18 81 97% 12/17/2024 19:15 142/72 95 80 12/17/2024 19:13 80 95% 12/17/2024 19:08 74 92% 12/17/2024 19:03 81 95% 12/17/2024 19:00 136/89 104 89 12/17/2024 18:58 82 98% 12/17/2024 18:53 81 97% 12/17/2024 18:48 67 98% 12/17/2024 2 of 4 NORMA Carlos, : 1965, , 18:45 168/93 118 85 12/17/2024 18:43 77 96% 12/17/2024 18:23 73 97% 12/17/2024 18:18 75 96% 12/17/2024 18:16 159/90 104 78 12/17/2024 18:13 79 96% 12/17/2024 18:08 79 97% 12/17/2024 18:03 76 97% 12/17/2024 18:00 135/78 94 89 12/17/2024 17:58 90 93% 12/17/2024 17:53 88 94% 12/17/2024 17:48 89 96% 12/17/2024 17:45 143/74 94 87 12/17/2024 17:38 94 93% 12/17/2024 17:33 94 94% 12/17/2024 3 of 4 Vitals - NORMA ALONSO, : 1965, , 17:31 135/78 98 91 12/17/2024 17:28 91 94% 12/17/2024 17:23 91 93% 12/17/2024 17:20 177/87 123 96 12/17/2024 16:32 172/105 127 103 16 97% 97.5 F 10 12/17/2024 4 of 4 ED ORDER SHEET (CPOE ONLY) Observed: 4:11 PM Status: F Source: [facility] Order Sheet - NORMA ALONSO, : 1965, , Order Sheet [address] [address] [id number] 12/17/2024 Patient: NORMA ALONSO Sex: Female : 1965 Age: 59y MEASUREMENTS: Wt: 72.6 kg, Ht/Rafy: 61.0 in, BMI: 30.23 ALLERGIES: No known drug allergies MEDICATION/IV/DRIP/FLUID ORDERS Acknowledge Order Description Priority Entered d Completed IV NS 0.9 %1000 mL at 999 16:40 12/17/2024 17:10 17:14 mL/hr (NOW x1) [place] 12/17/2024 12/17/2024 Pih Quiles Shauna Ewing, Lesley.N. R.N. Zofran IVP4 mg (NOW x1) 16:40 12/17/2024 17:10 17:17 Randy 12/17/2024 12/17/2024 Phi Quiles Shauna Ewing, R.N. R.N. Reason for ordering with Benefits outweigh risks --16:40 12/17/2024 Randy alerts: Phi Quiles Bentyl IM20 mg (NOW x1) 16:40 12/17/2024 17:10 17:18 [place] 12/17/2024 12/17/2024 Phi Quiles Shauna Ewing, Lesley.N. R.N. KetorOLAC (Toradol) IVP15 18:27 12/17/2024 18:35 18:42 mg (NOW x1) [place] 12/17/2024 12/17/2024 1 of 4 Order Sheet - NORMA ALONSO, : 1965, , Phi Quiles Shauna Ewing, Lesley.N. R.N. Reason for ordering with Benefits outweigh risks --18:27 12/17/2024 Ranyd alerts: Phi Quiles IV NS 0.9 %1000 mL at 999 18:27 12/17/2024 18:35 18:40 mL/hr (NOW x1) [place] 12/17/2024 12/17/2024 Phi Quiles Shauna Ewing, R.N. R.N. Reason for ordering with Benefits outweigh risks --18:27 12/17/2024 Randy alerts: Phi Quiles Reglan IVP10 mg (NOW x1) 18:27 12/17/2024 18:35 18:41 Randy 12/17/2024 12/17/2024 Phi Quiles Shauna Ewing, R.N. R.NMarco Antonio Reason for ordering with Benefits outweigh risks --18:27 12/17/2024 Randy alerts: Phi Quiles DiphenhydrAMINE 18:27 12/17/2024 18:35 18:41 (Benadryl) IVP25 mg (NOW Randy 12/17/2024 12/17/2024 x1) Phi Quiles Shauna Ewing, R.NMarco Antonio R.NMarco Antonio Reason for ordering with Benefits outweigh risks --18:27 12/17/2024 Randy alerts: Phi Quiles cefTRIAXone (Rocephin) 19:48 12/17/2024 20:27 IVPB 1gm/50ml NS1 g Len Monge D.O. 12/17/2024 diluted in sodium chloride Ana Cristina Buchanan, IVPB 0.9 % Minibag+ 50 mL R.N. at 100 mL/hr (NOW x1) LAB ORDERS Acknowledge Order Description Priority Entered d Collected Completed CBC w Diff Stat Stat 16:40 17:18 17:20 12/17/2024 12/17/2024 12/17/2024 Michelle Carl, 2 of 4 Order Sheet - NORMA ALONSO, : 1965, , Phi Quiles.N. R.N. Lipase Stat Stat 16:40 17:18 17:20 12/17/2024 12/17/2024 12/17/2024 Michelle Carl Lemasters, D.O. R.N. R.N. CMP Stat Stat 16:40 17:18 17:20 12/17/2024 12/17/2024 12/17/2024 Michelle Carl Lemasters, D.O. R.N. R.N. Urinalysis Stat Stat 16:40 17:18 19:00 12/17/2024 12/17/2024 12/17/2024 Michelle Carl Lemasters, D.O. R.N. R.N. Rapid COVID (SARS) Stat 16:40 17:18 17:20 ANTIGEN TEST Stat 12/17/2024 12/17/2024 12/17/2024 Michelle Carl Lemasters, D.O. R.NMarco Antonio RMarco AntonioNMarco Antonio Flu Swab Stat 16:40 17:18 17:20 (Influenzae AAg) 12/17/2024 12/17/2024 12/17/2024 Stat Michelle Carl Lemasters, D.O. R.NMarco Antonio RMarco AntonioNMarco Antonio Urine Culture [CCL] Stat 19:48 20:19 20:19 Stat 12/17/2024 12/17/2024 12/17/2024 Ana Cristina Salter Tessa Miller, D.O. R.NMarco Antonio RMarco AntonioNMarco Antonio 3 of 4 Order Sheet - NORMA ALONSO : 1965, , DIAGNOSTIC STUDY ORDERS Acknowledge Order Description Priority Entered d Completed Chest 1V Stat Stat 16:40 12/17/2024 17:18 17:20 Randy 12/17/2024 12/17/2024 Phi Quiles Shauna Ewing, R.NMarco Antonio R.NMarco Antonio Reason for Study: Cough STAFF ORDERS Acknowledge Order Description Priority Entered d Collected Completed IV Saline Lock 16:40 17:18 17:20 12/17/2024 12/17/2024 12/17/2024 Michelle Carl Lemasters, D.O. R.NMarco Antonio RArian [Electronically signed by Len Monge D.O. (12/18/2024 00:05 EDT)] 4 of 4 ED PHYSICIAN CLINICAL REPORT Observed: 0 12/17/2024 4:11 PM Status: F Source: [facility] Narrative - NORMA ALONSO DO B: 1965, , Physician Clinical Narrative [address] [address] [id number] 12/17/2024 16:11:00 Patient: NORMA ALONSO Sex: Female : 1965 Age: 59y Disposition: Discharge to Home Disposition Decision Time: 21:04 12/17/2024 Departure Time: 21:11 12/17/2024 Measurements Wt: 72.6 kg, Ht/Rafy: 61.0 in, BMI: 30.23 Initial Vital Sign Measured Gloria Time BP MAP HR RR O2Sat ETCO2 Temp n GCS RTS 16:32 172/105 127 103 16 97% 97.5 F 10 12/17/2024 Time Seen: 16:15 12/17/2024. Arrived- By private vehicle. Historian- patient. HISTORY OF PRESENT ILLNESS Chief Complaint: COUGH and CHILLS. This started 6 days ago. (Patient presents with concern for cough and increasing mucus production. States she has had episodes of vomiting. Abdominal cramping. Diarrhea. States she is having hot flashes however is in menopause. Denies any fever, urinary symptoms. No sick contacts.). REVIEW OF SYSTEMS GI: The patient has had nausea, vomiting, diarrhea and abdominal pain. 1 NORMA Milton, : 1965, , PAST HISTORY fatty liver Gastroesophageal Reflux Disease Headache Hyperlipidemia Hypertension Myocardial Infarction Surgeries: Cholecystectomy Tubal Ligation Medications: atorvastatin 20 mg tablet: 1 tablet once a day . gabapentin 300 mg capsule: 1 capsule three times a day . loratadine 10 mg tablet: 1 tablet once a day . omeprazole 40 mg capsule,delayed release: 1 capsule once a day . propranolol ER 160 mg capsule,24 hr,extended release: 1 capsule once a day . trazodone 50 mg tablet: 1 tablet once a day . Allergies: no known drug allergies SOCIAL HISTORY No alcohol use or drug use. ADDITIONAL NOTES The nursing notes have been reviewed. PHYSICAL EXAM Vital Signs: Have been reviewed. Appearance: Alert. No acute distress. 2 of NORMA Milton, : 1965, , ENT: Pharynx normal. Uvula midline. Neck: Normal inspection. Neck supple. CVS: Normal heart rate and rhythm. Heart sounds normal. Pulses normal. Respiratory: No respiratory distress. Breath sounds normal. Abdomen: Soft and nontender. Skin: Skin warm and dry. Normal skin color. Extremities: No lower extremity edema. LABS, X-RAYS, AND EKG Laboratory Tests: CBC + DIFF Final PAOLA: 12/17/2024 17:10:00 EDT MsgRcvd: 12/17/2024 17:43 EDT Lab Test Result Reference Status Received 12/17/2024 17:43 CBC + DIFF Final EDT CBC-COMPLETE BLOOD COUNT 14.0 x 10/UL 12/17/2024 17:43 WBC 4.5 - 10.8 Final Above high normal EDT 5.67 x 10/UL 12/17/2024 17:43 RBC 4.10 - 5.30 Final Above high normal EDT 17.7 g/dl 12/17/2024 17:43 HEMOGLOBIN 12.0 - 16.0 Final Above high normal EDT 51.5 % 12/17/2024 17:43 HEMATOCRIT 34.0 - 46.0 Final Above high normal EDT 12/17/2024 17:43 MCV 91 fl 80 - 99 Final EDT 12/17/2024 17:43 MCH 31 pg 27 - 33 Final EDT [facility] NORMA ALONSO, : 1965, , 12/17/2024 17:43 MCHC 34 X10 3 32 - 36 Final EDT 12/17/2024 17:43 RDW/CV 13.5 % 12.0 - 15.6 Final EDT 12/17/2024 17:43 PLATELET 363 x10/UL 150 - 450 Final EDT 12/17/2024 17:43 MPV 9.0 fl 6.6 - 10.5 Final EDT AUTOMATED DIFFERENTIAL 12/17/2024 17:43 NEUT % 70.8 % 46.0 - 76.0 Final EDT 12/17/2024 17:43 LYMPH % 22.7 % 20.0 - 45.0 Final EDT 12/17/2024 17:43 MONOS % 5.9 % 0.0 - 10.0 Final EDT 12/17/2024 17:43 EO % 0.4 % 0.0 - 7.0 Final EDT 12/17/2024 17:43 BASO % 0.2 % 0.0 - 2.0 Final EDT 3.17 x10/UL 12/17/2024 17:43 Lymph # 0.80 - 2.80 Final Above high normal EDT 9.87 x10/UL 12/17/2024 17:43 Neut # 1.50 - 7.10 Final Above high normal EDT 12/17/2024 17:43 Republic # 0.82 x10/UL 0.20 - 1.00 Final EDT 12/17/2024 17:43 EO # 0.06 x10/UL 0.00 - 0.50 Final EDT 4 of NORMA Milton, : 1965, , 12/17/2024 17:43 Baso # 0.03 x10/UL 0.00 - 0.10 Final EDT 12/17/2024 17:43 MANUAL DIFF N/A New Order EDT 12/17/2024 17:43 MORPHOLOGY N/A New Order EDT CMP with eGFR Final PAOLA: 12/17/2024 18:30:00 EDT MsgRcvd: 12/17/2024 19:06 EDT Lab Test Result Reference Status Received 12/17/2024 19:06 CMP with eGFR Final EDT COMPREHENSIVE METABOLIC PANEL 12/17/2024 19:06 SODIUM 145 mmol/l 136 - 145 Final EDT 3.1 mmol/L 12/17/2024 19:06 POTASSIUM 3.5 - 5.1 Final Below low normal EDT 12/17/2024 19:06 CHLORIDE 107 mmol/L 98 - 107 Final EDT 12/17/2024 19:06 CO2 29.3 mmol/L 21.0 - 32.0 Final EDT 120 mg/dl 12/17/2024 19:06 GLUCOSE 74 - 106 Final Above high normal EDT 12/17/2024 19:06 BUN 15 mg/dl 7 - 18 Final EDT 12/17/2024 19:06 CREATININE 0.66 mg/dl 0.55 - 1.02 Final EDT 5 of NORMA Milton, : 1965, , 80 U/L 12/17/2024 19:06 AST/SGOT 13 - 39 Final Above high normal EDT 12/17/2024 19:06 ALK PHOS 87 U/L 46 - 116 Final EDT 12/17/2024 19:06 CALCIUM 8.7 mg/dl 8.5 - 10.1 Final EDT 12/17/2024 19:06 TOTAL PROTEIN 7.2 g/dl 6.4 - 8.2 Final EDT 12/17/2024 19:06 ALBUMIN 3.8 g/dL 3.4 - 5.0 Final EDT 12/17/2024 19:06 GLOBULIN 3.4 G/DL 1.5 - 3.8 Final EDT 12/17/2024 19:06 A/G RATIO 1.1 0.9 - 1.6 Final EDT 1.4 mg/dl 12/17/2024 19:06 TOTAL BILI 0.2 - 1.0 Final Above high normal EDT 12/17/2024 19:06 B/C RATIO 23 ratio 0 - 30 Final EDT 138 U/L 12/17/2024 19:06 ALT/SGPT 16 - 63 Final Above high normal EDT 12/17/2024 19:06 ANION GAP 12 mmol/L 10 - 20 Final EDT 12/17/2024 19:06 AGE 59 years Final EDT 12/17/2024 19:06 eGFR >60 ML/MINUTE 60 - 999 Final EDT Gianfranco - GAVIN NORMA, : 1965, , 12/17/2024 19:06 eGFR(AA) >60 ML/MINUTE 60 - 999 Final EDT ACCORDING TO THE NATIONAL KIDNEY DISEASE EDUCATION PROGRAM(NKDE), A NORMAL eGFR IS A VALUE GREATER THAN OR EQUAL TO 60 ML/MIN/1.73 SQ METERS. CHRONIC KIDNEY DISEASE: <60mL/MIN/1.73 SQ METERS KIDNEY FAILURE: <15mL/MIN/1.73 SQ METERS THIS TEST SHOULD ONLY BE USED FOR PATIENTS 18 YEARS OF AGE AND OLDER. CORONAVIRUS (SARS) ANTIGEN TEST Final PAOLA: 12/17/2024 17:14:00 EDT MsgRcvd: 12/17/2024 18:01 EDT Lab Test Result Reference Status Received NORMAL: 12/17/2024 18:01 SARS ANTIGEN NEGATIVE Final NEGATIVE EDT INTERNAL 12/17/2024 18:01 PASS Final CONTROL EDT EXTERNAL QC 12/17/2024 18:01 YES Final DONE? EDT 12/17/2024 18:01 SEND TO IC? YES Final EDT SARS-CoV-2 THIS TEST IS BEING USED UNDER THE FDA EUA PROCEDURE. THIS ASSAY HAS BEEN VALIDATED AT [facility] FOR USE WITH NASAL AND NASOPHARYNGEAL SWAB SPECIMENS. INTERPRETIVE DATA TEST RESULTS SHOULD ALWAYS BE CONSIDERED IN THE CONTEXT OF CLINICAL OBSERVATIONS AND EPIDEMIOLOGICAL DATA IN MAKING FINAL DIAGNOSIS AND PATIENT MANAGEMENT DECISIONS. PATIENT MANAGEMENT SHOULD FOLLOW CURRENT CDC GUIDELINES. THE AUREA SARS ANTIGEN JADEN DOES NOT DIFFERENTIATE BETWEEN SARS-CoV SARS-CoV-2. A POSITIVE TEST RESULT INDICATES THE PRESENCE OF SARS-CoV-2 NUCLEOCAPSID PROTEIN ANTIGEN, AND THE PATIENT IS INFECTED WITH THE VIRUS AND PRESUMED TO BE CONTAGIOUS. A NEGATIVE TEST RESULT FOR THIS TEST MEANS THAT SARS-CoV-2 NUCLEOCAPSID PROTEIN ANTIGEN WAS NOT PRESENT IN THE SPECIMEN ABOVE THE LIMIT OF DETECTION. HOWEVER, A 7 of 25 Gianfranco - NORMA ALONSO, : 1965, , NEGATIVE RESULT DOES NOT RULE OUT COVID-19 AND SHOULD NOT BE USED THE SOLE BASIS FOR TREATMENT OR PATIENT MANAGEMENT DECISIONS. A NEGATIVE RESULT DOES NOT EXCLUDE THE POSSIBILITY OF COVID-19. NEGATIVE RESULTS, FROM PATIENTS WITH SYMPTOM ONSET BEYOND FIVE DAYS, SHOULD BE TREATED PRESUMPTIVE AND CONFIRMATION WITH A MOLECULAR ASSAY, IF NECESSARY, FOR PATIENT MANAGEMENT, MAY BE PERFORMED. WHEN DIAGNOSTIC TESTING IS NEGATIVE, THE POSSIBLILTY OF A FALSE NEGATIVE RESULT SHOULD BE CONSIDERED IN THE CONTEXT OF A PATIENT'S RECENT EXPOSURES AND THE PRESENCE OF CLINICAL SIGNS AND SYMPTOMS CONSISTENT WITH COVID-19. THE POSSIBILITY OF A FALSE NEGATIVE RESULT SHOULD ESPECIALLY BE CONSIDERED IF THE PATIENT'S RECENT EXPOSURES OR CLINICAL PRESENTATION INDICATE THAT COVID-19 IS LIKELY, AND DIAGNOSTIC TESTS FOR OTHER CAUSES OF ILLNESS (e.g., OTHER RESPIRATORY ILLNESS) ARE NEGATIVE. IF COVID-19 IS STILL SUSPECTED BASED ON EXPOSURE HISTORY TOGETHER WITH OTHER CLINICAL FINDINGS, RE-TESTING SHOULD BE CONSIDERED BY HEALTHCARE PROVIDERS IN CONSULTATION WITH PUBLIC HEALTH AUTHORITIES. INFLUENZA VIRUS RAPID A/B Final PAOLA: 12/17/2024 17:14:00 EDT MsgRcvd: 12/17/2024 18:03 EDT Lab Test Result Reference Status Received 12/17/2024 18:03 INFLUENZA A NEGATIVE [NEGATIVE Final EDT 12/17/2024 18:03 INFLUENZA B NEGATIVE [NEGATIVE Final EDT 12/17/2024 18:03 INTERNAL NEG QC PASS Final EDT 12/17/2024 18:03 INTERNAL POS QC PASS Final EDT EXTERNAL QC 12/17/2024 18:03 YES Final DONE? EDT 12/17/2024 18:03 SEND TO IC? NO Final EDT 8 of NORMA Milton, : 1965, , A NEGATIVE TEST RESULT DOES NOT EXCLUDE INFECTION WITH INFLUENZA A OR B. THEREFORE, THE RESULTS OBTAINED FROM THIS FLU TEST SHOULD BE USED IN CONJUCTION WITH CLINICAL FINDINGS TO MAKE AN ACCURATE DIAGNOSIS. A POSITIVE RESULT DOES NOT RULE OUT CO-INFECTIONS WITH OTHER PATHOGENS OR IDENTIFY ANY SPECIFIC INFLUENZA A VIRUS SUBTYPE.CO-INFECTION WITH INFLUENZA A AND B IS RARE. IT IS RECOMMENDED THAT DUAL POSITIVE RESULTS BE CONFIRMED BY VIRAL CULTURE OR AN FDA-CLEARED INFLUENZA A AND B MOLECULAR ASSAY. INDIVIDUALS WHO HAVE RECEIVED NASALLY ADMINISTERED INFLUENZA A VACCINE MAY TEST POSITIVE IN COMMERCIALLY AVAILABLE INFLUENZA RAPID DIAGNOSTIC TESTS FOR UP TO THREE DAYS. 12/17/2024 18:03 RESULT CRITICAL? NO Final EDT LIPASE Final PAOLA: 12/17/2024 17:10:00 EDT MsgRcvd: 12/17/2024 18:05 EDT Lab Test Result Reference Status Received 12.0 U/L 12/17/2024 18:05 LIPASE 15.0 - 78.0 Final Below low normal EDT *PLEASE NOTE THAT RANGES FOR LIPASE HAVE CHANGED OF 04/01/23 DUE TO AN ASSAY UPDATE BY THE CLINICAL COUNSELOR.THE NEW ASSAY RANGE IS 6-250 U/L, WITH A REFERENCE RANGE OF 16-77 U/L. URINALYSIS Final PAOLA: 12/17/2024 18:33:00 EDT MsgRcvd: 12/17/2024 19:14 EDT Lab Test Result Reference Status Received 12/17/2024 19:14 URINALYSIS Final EDT URINALYSIS 9 of ONRMA Milton, : 1965, , 12/17/2024 19:14 Specimen Type R New Order EDT 12/17/2024 19:14 Color mal NORMAL: YELLOW Final EDT 12/17/2024 19:14 Clarity sl.cloudy NORMAL: CLEAR Final EDT 12/17/2024 19:14 ph 6 NORMAL: 5.0-8.0 Final EDT 100 NORMAL: 12/17/2024 19:14 Protein Final Abnormal NEGATIVE EDT 12/17/2024 19:14 Glucose NORM NORMAL: NORMAL Final EDT 50 NORMAL: 12/17/2024 19:14 Ketone Final Abnormal NEGATIVE EDT NORMAL: 12/17/2024 19:14 Bilirubin NEG Final NEGATIVE EDT 10 NORMAL: 12/17/2024 19:14 Blood Final Abnormal NEGATIVE EDT 4 12/17/2024 19:14 Urobilinog NORMAL: NORMAL Final Abnormal EDT NORMAL: 1.010- 12/17/2024 19:14 Sp [place] 1.015 Final 1.030 EDT NORMAL: 12/17/2024 19:14 Nitrite NEG Final NEGATIVE EDT 25 NORMAL: 12/17/2024 19:14 Leukocytes Final Abnormal NEGATIVE EDT 10 of Narrative - NORMA ALONSO : 1965, , 12/17/2024 19:14 Microscopic SEE BELOW Final EDT MICROSCOPIC 12/17/2024 19:14 Wbc 1-5 0-5/hpf Final EDT 12/17/2024 19:14 Rbc 0-5 0-3/hpf Final EDT 12/17/2024 19:14 Casts SEE BELOW Final EDT 12/17/2024 19:14 Hyaline 1-5 NORMAL: NONE Final EDT 12/17/2024 19:14 Crystals NONE Final EDT 12/17/2024 19:14 Amorphous 1+ Final EDT 12/17/2024 19:14 Bacteria 1+ Final EDT 12/17/2024 19:14 Epi Cells MANY Final EDT 12/17/2024 19:14 Mucous NONE Final EDT 12/17/2024 19:14 Yeast NONE Final EDT Diagnostic Study Tests: CHEST 1 VIEW Final EXAM Date: 12/17/2024 16:54:00 EDT MsgRcvd: 12/17/2024 17:01 EDT Narrative - NORMA ALONSO : 1965, , [place] [phone] Patient: NORMA ALONSO Phone#: : [phone] Age: 59 Gender: F Pt. Type: ER Account: [id number] Location: [id number] Ordering: RANDY QUILES Exam Date: 12/17/2024/16:40 Family Phys: OSVALDO SUE Charge Code: [id number] Physician: [place] Order #: [id number] Dose#: PROCEDURE: X-RAY CHEST 1 VIEW COMPARISON: [facility], XR, CHEST 1 VIEW, 06/21/2024, 11:08. INDICATIONS: Cough. FINDINGS: LUNGS: Normal. No significant pulmonary parenchymal abnormalities. VASCULATURE: Normal. Unremarkable pulmonary vasculature. CARDIAC: Normal. No cardiac silhouette abnormality or cardiomegaly. MEDIASTINUM: Normal. No visible mass or adenopathy. PLEURA: Normal. No effusion or pleural thickening. BONES: Normal. No fracture or visible bony lesion. OTHER: Negative. CONCLUSION: No acute disease. Dictated by: Elise Strauss MD on 12/17/2024 at 16:57 Approved by: Elise Strauss MD on 12/17/2024 at 16:59 PROGRESS AND PROCEDURES COORDINATION OF CARE: ED care transferred. Case discussed with Dr. Monge Differential Diagnosis: Other possible considerations: Viral illness, migraine, electrolyte abnormality, volume depletion. MEDICAL DECISION MAKING: (patient appears well nontoxic. Treated initially with 1 L normal saline, Bentyl, Zofran. Lab work shows a 14,000 white blood cell count. Chest x-ray clear. On re-evaluation patient continues to have headache and nausea. Treated with Reglan, Benadryl, ketorolac, another 1 L normal saline. Patient signed out to incoming physician pending re-evaluation and urinalysis. Stable time of handoff.). Narrative - NORMA ALONSO, : 1965, , (Electronically signed by Randy Quiles D.O. 12/20/24 07:23:19 EDT) Generated by [facility] Physician Clinical Narrative [address] [address] [id number] 12/17/2024 16:11:00 Patient: NORMA ALONSO Sex: Female : 1965 Age: 59y Disposition: Discharge to Home Disposition Decision Time: 21:04 12/17/2024 Departure Time: 21:11 12/17/2024 Measurements Wt: 72.6 kg, Ht/Rafy: 61.0 in, BMI: 30.23 Initial Vital Sign Measured Gloria Time BP MAP HR RR O2Sat ETCO2 Temp n GCS RTS 16:32 172/105 127 103 16 97% 97.5 F 10 12/17/2024 PAST HISTORY See nurses notes. fatty liver Gastroesophageal Reflux Disease Headache Hyperlipidemia Hypertension Myocardial Infarction 13 of 25 NORMA [place], : 1965, , Surgeries: Cholecystectomy Tubal Ligation Medications: atorvastatin 20 mg tablet: 1 tablet once a day . gabapentin 300 mg capsule: 1 capsule three times a day . loratadine 10 mg tablet: 1 tablet once a day . omeprazole 40 mg capsule,delayed release: 1 capsule once a day . propranolol ER 160 mg capsule,24 hr,extended release: 1 capsule once a day . trazodone 50 mg tablet: 1 tablet once a day . Allergies: no known drug allergies SOCIAL HISTORY Never smoker. No alcohol use or drug use. ADDITIONAL NOTES The nursing notes have been reviewed. PHYSICAL EXAM Appearance: Alert. No acute distress. Eyes: Pupils equal, round and reactive to light. ENT: Nose normal. Dry mucous membranes present. Pharynx normal. Neck: Normal inspection. Neck supple. CVS: Normal heart rate and rhythm. Heart sounds normal. Pulses normal. Respiratory: No respiratory distress. Painless inspiration. Breath sounds normal. Abdomen: Soft and nontender. No organomegaly. Skin: Skin warm and dry. No rash. Extremities: Extremities exhibit normal ROM. No lower extremity edema. Neuro: Oriented X 3. No motor deficit. No sensory deficit. 14 of 25 NORMA [place], : 1965, , LABS, X-RAYS, AND EKG Laboratory Tests: CBC + DIFF Final PAOLA: 12/17/2024 17:10:00 EDT MsgRcvd: 12/17/2024 17:43 EDT Lab Test Result Reference Status Received 12/17/2024 17:43 CBC + DIFF Final EDT CBC-COMPLETE BLOOD COUNT 14.0 x 10/UL 12/17/2024 17:43 WBC 4.5 - 10.8 Final Above high normal EDT 5.67 x 10/UL 12/17/2024 17:43 RBC 4.10 - 5.30 Final Above high normal EDT 17.7 g/dl 12/17/2024 17:43 HEMOGLOBIN 12.0 - 16.0 Final Above high normal EDT 51.5 % 12/17/2024 17:43 HEMATOCRIT 34.0 - 46.0 Final Above high normal EDT 12/17/2024 17:43 MCV 91 fl 80 - 99 Final EDT 12/17/2024 17:43 MCH 31 pg 27 - 33 Final EDT 12/17/2024 17:43 MCHC 34 X10 3 32 - 36 Final EDT 12/17/2024 17:43 RDW/CV 13.5 % 12.0 - 15.6 Final EDT Gianfranco - JAMALNORMA STOCKTON, : 1965, , 12/17/2024 17:43 PLATELET 363 x10/UL 150 - 450 Final EDT 12/17/2024 17:43 MPV 9.0 fl 6.6 - 10.5 Final EDT AUTOMATED DIFFERENTIAL 12/17/2024 17:43 NEUT % 70.8 % 46.0 - 76.0 Final EDT 12/17/2024 17:43 LYMPH % 22.7 % 20.0 - 45.0 Final EDT 12/17/2024 17:43 MONOS % 5.9 % 0.0 - 10.0 Final EDT 12/17/2024 17:43 EO % 0.4 % 0.0 - 7.0 Final EDT 12/17/2024 17:43 BASO % 0.2 % 0.0 - 2.0 Final EDT 3.17 x10/UL 12/17/2024 17:43 Lymph # 0.80 - 2.80 Final Above high normal EDT 9.87 x10/UL 12/17/2024 17:43 Neut # 1.50 - 7.10 Final Above high normal EDT 12/17/2024 17:43 Republic # 0.82 x10/UL 0.20 - 1.00 Final EDT 12/17/2024 17:43 EO # 0.06 x10/UL 0.00 - 0.50 Final EDT 12/17/2024 17:43 Baso # 0.03 x10/UL 0.00 - 0.10 Final EDT 12/17/2024 17:43 MANUAL DIFF N/A New Order EDT 16 NORMA Milton, : 1965, , 12/17/2024 17:43 MORPHOLOGY N/A New Order EDT CMP with eGFR Final PAOLA: 12/17/2024 18:30:00 EDT MsgRcvd: 12/17/2024 19:06 EDT Lab Test Result Reference Status Received 12/17/2024 19:06 CMP with eGFR Final EDT COMPREHENSIVE METABOLIC PANEL 12/17/2024 19:06 SODIUM 145 mmol/l 136 - 145 Final EDT 3.1 mmol/L 12/17/2024 19:06 POTASSIUM 3.5 - 5.1 Final Below low normal EDT 12/17/2024 19:06 CHLORIDE 107 mmol/L 98 - 107 Final EDT 12/17/2024 19:06 CO2 29.3 mmol/L 21.0 - 32.0 Final EDT 120 mg/dl 12/17/2024 19:06 GLUCOSE 74 - 106 Final Above high normal EDT 12/17/2024 19:06 BUN 15 mg/dl 7 - 18 Final EDT 12/17/2024 19:06 CREATININE 0.66 mg/dl 0.55 - 1.02 Final EDT 80 U/L 12/17/2024 19:06 AST/SGOT 13 - 39 Final Above high normal EDT 12/17/2024 19:06 ALK PHOS 87 U/L 46 - 116 Final EDT 17 NORMA Milton, : 1965, , 12/17/2024 19:06 CALCIUM 8.7 mg/dl 8.5 - 10.1 Final EDT 12/17/2024 19:06 TOTAL PROTEIN 7.2 g/dl 6.4 - 8.2 Final EDT 12/17/2024 19:06 ALBUMIN 3.8 g/dL 3.4 - 5.0 Final EDT 12/17/2024 19:06 GLOBULIN 3.4 G/DL 1.5 - 3.8 Final EDT 12/17/2024 19:06 A/G RATIO 1.1 0.9 - 1.6 Final EDT 1.4 mg/dl 12/17/2024 19:06 TOTAL BILI 0.2 - 1.0 Final Above high normal EDT 12/17/2024 19:06 B/C RATIO 23 ratio 0 - 30 Final EDT 138 U/L 12/17/2024 19:06 ALT/SGPT 16 - 63 Final Above high normal EDT 12/17/2024 19:06 ANION GAP 12 mmol/L 10 - 20 Final EDT 12/17/2024 19:06 AGE 59 years Final EDT 12/17/2024 19:06 eGFR >60 ML/MINUTE 60 - 999 Final EDT 12/17/2024 19:06 eGFR(AA) >60 ML/MINUTE 60 - 999 Final EDT ACCORDING TO THE NATIONAL KIDNEY DISEASE EDUCATION PROGRAM(NKDE), A NORMAL eGFR IS A VALUE GREATER THAN OR EQUAL TO 60 ML/MIN/1.73 SQ METERS. CHRONIC KIDNEY DISEASE: <60mL/MIN/1.73 SQ METERS KIDNEY FAILURE: <15mL/MIN/1.73 SQ METERS THIS TEST SHOULD ONLY BE USED FOR PATIENTS 18 YEARS OF AGE AND OLDER. Gianfranco - NORMA ALONSO, : 1965, , CORONAVIRUS (SARS) ANTIGEN TEST Final PAOLA: 12/17/2024 17:14:00 EDT MsgRcvd: 12/17/2024 18:01 EDT Lab Test Result Reference Status Received NORMAL: 12/17/2024 18:01 SARS ANTIGEN NEGATIVE Final NEGATIVE EDT INTERNAL 12/17/2024 18:01 PASS Final CONTROL EDT EXTERNAL QC 12/17/2024 18:01 YES Final DONE? EDT 12/17/2024 18:01 SEND TO IC? YES Final EDT SARS-CoV-2 THIS TEST IS BEING USED UNDER THE FDA EUA PROCEDURE. THIS ASSAY HAS BEEN VALIDATED AT [facility] FOR USE WITH NASAL AND NASOPHARYNGEAL SWAB SPECIMENS. INTERPRETIVE DATA TEST RESULTS SHOULD ALWAYS BE CONSIDERED IN THE CONTEXT OF CLINICAL OBSERVATIONS AND EPIDEMIOLOGICAL DATA IN MAKING FINAL DIAGNOSIS AND PATIENT MANAGEMENT DECISIONS. PATIENT MANAGEMENT SHOULD FOLLOW CURRENT CDC GUIDELINES. THE AUREA SARS ANTIGEN JADEN DOES NOT DIFFERENTIATE BETWEEN SARS-CoV SARS-CoV-2. A POSITIVE TEST RESULT INDICATES THE PRESENCE OF SARS-CoV-2 NUCLEOCAPSID PROTEIN ANTIGEN, AND THE PATIENT IS INFECTED WITH THE VIRUS AND PRESUMED TO BE CONTAGIOUS. A NEGATIVE TEST RESULT FOR THIS TEST MEANS THAT SARS-CoV-2 NUCLEOCAPSID PROTEIN ANTIGEN WAS NOT PRESENT IN THE SPECIMEN ABOVE THE LIMIT OF DETECTION. HOWEVER, A NEGATIVE RESULT DOES NOT RULE OUT COVID-19 AND SHOULD NOT BE USED THE SOLE BASIS FOR TREATMENT OR PATIENT MANAGEMENT DECISIONS. A NEGATIVE RESULT DOES NOT EXCLUDE THE POSSIBILITY OF COVID-19. NEGATIVE RESULTS, FROM PATIENTS WITH SYMPTOM ONSET BEYOND FIVE DAYS, SHOULD BE TREATED PRESUMPTIVE AND CONFIRMATION WITH A MOLECULAR ASSAY, IF NECESSARY, FOR PATIENT MANAGEMENT, MAY BE PERFORMED. WHEN DIAGNOSTIC TESTING IS NEGATIVE, THE POSSIBLILTY OF A FALSE NEGATIVE RESULT SHOULD BE CONSIDERED IN THE CONTEXT OF A PATIENT'S RECENT EXPOSURES AND THE PRESENCE OF CLINICAL SIGNS AND SYMPTOMS CONSISTENT WITH COVID-19. [address] [facility] - GAVIN NORMA, : 1965, , POSSIBILITY OF A FALSE NEGATIVE RESULT SHOULD ESPECIALLY BE CONSIDERED IF THE PATIENT'S RECENT EXPOSURES OR CLINICAL PRESENTATION INDICATE THAT COVID-19 IS LIKELY, AND DIAGNOSTIC TESTS FOR OTHER CAUSES OF ILLNESS (e.g., OTHER RESPIRATORY ILLNESS) ARE NEGATIVE. IF COVID-19 IS STILL SUSPECTED BASED ON EXPOSURE HISTORY TOGETHER WITH OTHER CLINICAL FINDINGS, RE-TESTING SHOULD BE CONSIDERED BY HEALTHCARE PROVIDERS IN CONSULTATION WITH PUBLIC HEALTH AUTHORITIES. INFLUENZA VIRUS RAPID A/B Final PAOLA: 12/17/2024 17:14:00 EDT MsgRcvd: 12/17/2024 18:03 EDT Lab Test Result Reference Status Received 12/17/2024 18:03 INFLUENZA A NEGATIVE [NEGATIVE Final EDT 12/17/2024 18:03 INFLUENZA B NEGATIVE [NEGATIVE Final EDT 12/17/2024 18:03 INTERNAL NEG QC PASS Final EDT 12/17/2024 18:03 INTERNAL POS QC PASS Final EDT EXTERNAL QC 12/17/2024 18:03 YES Final DONE? EDT 12/17/2024 18:03 SEND TO IC? NO Final EDT A NEGATIVE TEST RESULT DOES NOT EXCLUDE INFECTION WITH INFLUENZA A OR B. THEREFORE, THE RESULTS OBTAINED FROM THIS FLU TEST SHOULD BE USED IN CONJUCTION WITH CLINICAL FINDINGS TO MAKE AN ACCURATE DIAGNOSIS. A POSITIVE RESULT DOES NOT RULE OUT CO-INFECTIONS WITH OTHER PATHOGENS OR IDENTIFY ANY SPECIFIC INFLUENZA A VIRUS SUBTYPE.CO-INFECTION WITH INFLUENZA A AND B IS RARE. IT IS RECOMMENDED THAT DUAL POSITIVE RESULTS BE CONFIRMED BY VIRAL CULTURE OR AN FDA-CLEARED INFLUENZA A AND B NORMA Milton, : 1965, , MOLECULAR ASSAY. INDIVIDUALS WHO HAVE RECEIVED NASALLY ADMINISTERED INFLUENZA A VACCINE MAY TEST POSITIVE IN COMMERCIALLY AVAILABLE INFLUENZA RAPID DIAGNOSTIC TESTS FOR UP TO THREE DAYS. 12/17/2024 18:03 RESULT CRITICAL? NO Final EDT LIPASE Final PAOLA: 12/17/2024 17:10:00 EDT MsgRcvd: 12/17/2024 18:05 EDT Lab Test Result Reference Status Received 12.0 U/L 12/17/2024 18:05 LIPASE 15.0 - 78.0 Final Below low normal EDT *PLEASE NOTE THAT RANGES FOR LIPASE HAVE CHANGED OF 04/01/23 DUE TO AN ASSAY UPDATE BY THE CLINICAL COUNSELOR.THE NEW ASSAY RANGE IS 6-250 U/L, WITH A REFERENCE RANGE OF 16-77 U/L. URINALYSIS Final PAOLA: 12/17/2024 18:33:00 EDT MsgRcvd: 12/17/2024 19:14 EDT Lab Test Result Reference Status Received 12/17/2024 19:14 URINALYSIS Final EDT URINALYSIS 12/17/2024 19:14 Specimen Type R New Order EDT 12/17/2024 19:14 Color mal NORMAL: YELLOW Final EDT 12/17/2024 19:14 Clarity sl.cloudy NORMAL: CLEAR Final EDT NORMA Milton, : 1965, , 12/17/2024 19:14 ph 6 NORMAL: 5.0-8.0 Final EDT 100 NORMAL: 12/17/2024 19:14 Protein Final Abnormal NEGATIVE EDT 12/17/2024 19:14 Glucose NORM NORMAL: NORMAL Final EDT 50 NORMAL: 12/17/2024 19:14 Ketone Final Abnormal NEGATIVE EDT NORMAL: 12/17/2024 19:14 Bilirubin NEG Final NEGATIVE EDT 10 NORMAL: 12/17/2024 19:14 Blood Final Abnormal NEGATIVE EDT 4 12/17/2024 19:14 Urobilinog NORMAL: NORMAL Final Abnormal EDT NORMAL: 1.010- 12/17/2024 19:14 Sp [place] 1.015 Final 1.030 EDT NORMAL: 12/17/2024 19:14 Nitrite NEG Final NEGATIVE EDT 25 NORMAL: 12/17/2024 19:14 Leukocytes Final Abnormal NEGATIVE EDT 12/17/2024 19:14 Microscopic SEE BELOW Final EDT MICROSCOPIC 12/17/2024 19:14 Wbc 1-5 0-5/hpf Final EDT 12/17/2024 19:14 Rbc 0-5 0-3/hpf Final EDT Gianfranco - NORMA ALONSO, : 1965, , 12/17/2024 19:14 Casts SEE BELOW Final EDT 12/17/2024 19:14 Hyaline 1-5 NORMAL: NONE Final EDT 12/17/2024 19:14 Crystals NONE Final EDT 12/17/2024 19:14 Amorphous 1+ Final EDT 12/17/2024 19:14 Bacteria 1+ Final EDT 12/17/2024 19:14 Epi Cells MANY Final EDT 12/17/2024 19:14 Mucous NONE Final EDT 12/17/2024 19:14 Yeast NONE Final EDT Diagnostic Study Tests: CHEST 1 VIEW Final EXAM Date: 12/17/2024 16:54:00 EDT MsgRcvd: 12/17/2024 17:01 EDT [place] [address] Patient: NORMA ALONSO Phone#: : [phone] Age: 59 Gender: F Pt. Type: ER Account: [id number] Location: [facility] Ordering: RANDY QUILES Exam Date: 12/17/2024/16:40 Family Phys: OSVALDO SUE Charge Code: 658601 Gianfranco Sandoval NORMA ALONSO, : 1965, , Physician: [place] Order #: [id number] Dose#: PROCEDURE: X-RAY CHEST 1 VIEW COMPARISON: [facility], XR, CHEST 1 VIEW, 06/21/2024, 11:08. INDICATIONS: Cough. FINDINGS: LUNGS: Normal. No significant pulmonary parenchymal abnormalities. VASCULATURE: Normal. Unremarkable pulmonary vasculature. CARDIAC: Normal. No cardiac silhouette abnormality or cardiomegaly. MEDIASTINUM: Normal. No visible mass or adenopathy. PLEURA: Normal. No effusion or pleural thickening. BONES: Normal. No fracture or visible bony lesion. OTHER: Negative. CONCLUSION: No acute disease. Dictated by: Elise Strauss MD on 12/17/2024 at 16:57 Approved by: Elise Strauss MD on 12/17/2024 at 16:59 PROGRESS AND PROCEDURES MEDICAL DECISION MAKING: Ordered tests include a urinalysis, a complete blood count, chemistries and viral panel. Abnormal tests include the urinalysis. The patient has been stable. IV fluids, non-narcotics and antibiotics were given. The pain and exam got better. (I did note that the patient's liver functions were mildly elevated however I went back and looked at old lab work and they always pretty much run in that range. Ask the patient about and she told me they explained did by saying that she has a fatty liver. Patient states she has been vomiting at home and not been able to eat much. She states she has felt hot but she was not sure she has been run a fever. But she says nausea vomiting started about 6 days ago. I did note that she had a urinary tract infection but she states she can not take large pills so we wrote her for Keflex instead and we wrote her for Zofran. She is going to follow up with her PCP Dr. Sue at [place].). Disposition: Condition: good. Disposition Decision Time: 21:04 12/17/2024. Patient discharged to Home. Discharged in good condition. Discharge decision based on the following: patient's condition is stable; patient is ambulatory; patient drinking fluids; patient's exam is stable; patient's exam is improved; moderately abnormal test results; stable condition on multiple repeat evaluations; social support is adequate; transportation is available; follow-up is available; clinical impression is consistent with outpatient treatment. CLINICAL IMPRESSION Gianfranco ALNOSO NORMA, : 1965, , Vomiting with nausea and dehydration. Acute urinary tract infection with cystitis. No hematuria. DISCHARGE INSTRUCTIONS Drink plenty of fluids. (Take medication as prescribed. Urine culture is pending. Results in approximately 48 hours. Follow up with Dr. Sue for results.). Warnings: GENERAL WARNINGS: Return or contact your physician immediately if your condition worsens or changes unexpectedly, if not improving as expected, or if other problems arise. Prescription Medications: cephalexin 500 mg tablet: Take 1 tablet by mouth four times a day for 10 days, dispense 40 tablet. Refills 0. Pharmacy: [facility] [id number] [place] [address]. ondansetron 4 mg disintegrating tablet: Take 1 tablet on tongue every eight hours for nausea/vomiting for 5 days, dispense 15 tablet. Refills 0. Pharmacy: [facility] [id number] [place] [address]. Understanding of the discharge instructions verbalized by family. Follow-up with: Family Riv[facility], [facility], [facility], Phone: [phone], [address] [address]. Follow up in three days. Call for an appointment. Reason for referral: evaluation and treatment. Summary of care provided to patient and family. (Electronically signed by Len Monge D.O. 12/18/24 00:05:51 EDT) Generated by [facility] 25 of 25 ED NURSES CLINICAL NOTE Observed: 2024 4:11 PM Status: F Source: [facility] Nurse Gianfranco Sandoval GAVIN WILLIAM CASTILLO, : 1965, , Nurse Clinical [address] [address] [phone] 12/17/2024 16:11:00 Patient: NORMA ALONSO Sex: Female : 1965 Age: 59y Disposition: Discharge to Home Disposition Decision Time: 21:04 12/17/2024 Departure Time: 21:11 12/17/2024 TRIAGE Arrived by private vehicle, and from home. Historian: (patient). Patient has a primary care physician. Primary physician (Reginaldo). Triage time: 16:26 12/17/2024. Acuity: LEVEL 3. Chief Complaint: SINUS DRAINAGE, SINUS CONGESTION and RUNNY NOSE. Onset. (7 days). The patient has had vomiting. SEPSIS SCREEN: NEGATIVE. SIRS criteria negative: heart rate greater than 90. No possible sources of infection. -- 16:33 12/17/24 EDT Hedy Mansfield R.N. 16:32 12/17/24. BP: 172/105 MAP: 127. HR: 103. RR: 16. O2 saturation: 97% Temperature: 97.5 F. Pain level now 10/10. -- 16:32 12/17/24 EDT Hedy Mansfield R.N. Measurements: 16:29 12/17/24 Wt: 72.6 kg, Ht/Rafy: 61.0 in, BMI: 30.23 -- 16:12/17/24 EDT Hedy Mansfield R.N. Medications: trazodone 50 mg tablet: 1 tablet once a day . -- 16:12/17/24 CEET Hedy Mansfield R.N. 1 of 6 Nurse Narrative - NORMA ALONSO, : 1965, , propranolol ER 160 mg capsule,24 hr,extended release: 1 capsule once a day . -- 16:12/17/24 CEET Hedy Mansfield R.N. omeprazole 40 mg capsule,delayed release: 1 capsule once a day . -- 16:12/17/24 EDT Hedy Mansfield R.N. loratadine 10 mg tablet: 1 tablet once a day . -- 16:12/17/24 EDT Hedy Mansfield R.N. gabapentin 300 mg capsule: 1 capsule three times a day . -- 16:12/17/24 EDT Hedy Mansfield R.N. atorvastatin 20 mg tablet: 1 tablet once a day . -- 16:12/17/24 AGNES Mansfield R.N. 16:12/17/24. [facility]. -- 16:12/17/24 CEET Hedy Mansfield R.N. Allergies: no known drug allergies -- 16:12/17/24 AGNES Mansfield R.N. Problems: fatty liver -- 16:12/17/24 CEET Hedy Mansfield R.N. Myocardial Infarction -- 16:12/17/24 CEET Hedy Mansfield R.N. Hypertension -- 16:12/17/24 CEET Hedy Mansfield R.N. Hyperlipidemia -- 16:12/17/24 CEET Hedy Mansfield R.N. Gastroesophageal Reflux Disease -- 16:12/17/24 AGNES Mansfield R.N. Headache -- 16:12/17/24 AGNES Mansfield R.N. Surgeries: Cholecystectomy -- 16:12/17/24 AGNES Mansfield R.N. Tubal Ligation -- 16:12/17/24 CEET Hedy Mansfield R.N. History 16:12/17/24. SOCIAL HX: Never smoker. No alcohol use or drug use. The patient has not traveled outside the [place] Infectious disease exposure: No infectious disease exposure. ABUSE ASSESSMENT: The patient answered yes to the question(s) Do you feel safe in your home? and no to the question(s) Are you afraid to go home?. SELF HARM ASSESSMENT: Self harm assessment was performed. The patient answered no to the 2 of 6 Nurse Narrative - NORMA ALONSO, : 1965, , question(s) Have you recently felt down, depressed, or hopeless? and Do you have thoughts of harming or killing yourself?. FALL RISK ASSESSMENT: Fall risk assessment completed. No risk factors identified. -- 16:12/17/24 AGNES Mansfield R.N. Interventions 16:12/17/24. Advanced care plan discussed with patient. Patient does not have advanced directive. -- 16:12/17/24 AGNES Mansfield R.N. PHYSICAL ASSESSMENT 17:22 12/17/24. GENERAL / NEURO / PSYCH: Alert. Oriented X 4. Appears in pain. ( Pt arrives ambulatory to ER#6 c/o vomiting, diarrhea, sinus congestion, and body aches. PT reports the family has all been sick but she has not been getting any better. Pt states she has had complaints for as week.). HEENT: Mucous membranes are dry. RESPIRATORY: Respirations not labored. Chest nontender. CVS: Capillary refill less than 2 seconds. Pulses within normal limits. GI / : The patient has had nausea and diarrhea. Abdomen soft and nontender and normal bowel sounds. SKIN: Skin intact. Skin is warm and dry. Normal skin turgor. -- 17:37 12/17/24 AGNES Swann R.N. NURSING PROGRESS NOTES 16:40 12/17/24. military administrative technician at the patient's bedside (16:40 12/17/2024). -- 17:39 12/17/24 AGNES Swann R.N. 17:10 12/17/24. IV NS 0.9 % 1000 mL started in bag#1 1000 mL at 999 mL/hr via Site# 1. Allergies verified and confirmed 5 rights. IV patency established. IV site checked: no pain, redness, or swelling. IV flushed thoroughly pre-medication administration. Information reviewed. Verbalizes understanding. -- 17:14 12/17/24 AGNES Swann R.N. 17:14 12/17/24. COVID-19 specimen obtained. Flu swab obtained. -- 17:35 12/17/24 AGNES Swann R.N. 17:12/17/24. Zofran IVP 4 mg given via Site# 1. Allergies verified and confirmed 5 rights. IV patency established. IV site checked: no pain, redness, or swelling. IV flushed thoroughly pre-medication administration. Information reviewed with patient. Verbalizes understanding. -- 17:17 12/17/24 AGNES Swann R.N. 17:17 12/17/24. Bentyl IM 20 mg given. Given in the left ventral gluteus. Allergies verified and confirmed 5 rights. Information reviewed with patient. Verbalizes understanding. -- 17:18 12/17/24 AGNES Swann R.N. 3 of 6 Nurse Narrative - NORMA ALONSO, : 1965, , 18:19 12/17/24. IV NS 0.9 %: Medication Discontinued. bag #1 infused. Total amount infused: 1000 mL. IV patency established. IV site checked: no pain, redness, or swelling. IV flushed thoroughly post-medication administration. -- 18:19 12/17/24 AGNES Swann R.N. 18:39 12/17/24. IV NS 0.9 % 1000 mL started in bag#1 1000 mL at 999 mL/hr via Site# 1. Allergies verified and confirmed 5 rights. IV patency established. IV site checked: no pain, redness, or swelling. IV flushed thoroughly pre-medication administration. Information reviewed. Verbalizes understanding. -- 18:40 12/17/24 AGNES Swann R.N. 18:41 12/17/24. DiphenhydrAMINE (Benadryl) IVP 25 mg given via Site# 1. Allergies verified and confirmed 5 rights. IV patency established. IV site checked: no pain, redness, or swelling. IV flushed thoroughly pre- medication administration. Information reviewed with patient. Verbalizes understanding. Medication Wastage: 25 mg wasted. -- 18:41 12/17/24 AGNES Swann R.N. 18:41 12/17/24. Reglan IVP 10 mg given via Site# 1. -- 18:41 12/17/24 AGNES Swann R.N. 18:41 12/17/24. KetorOLAC (Toradol) IVP 15 mg given via Site# 1. Allergies verified and confirmed 5 rights. Information reviewed. Verbalizes understanding. Medication Wastage: 15 mg wasted. -- 18:42 12/17/24 AGNES Swann R.N. 19:12/17/24. Care transferred and report given (GET [place]). -- 19:07 12/17/24 AGNES Swann R.N. 20:23 12/17/24. cefTRIAXone (Rocephin) IVPB 1gm/50ml NS 1 g started at 100 mL/hr diluted in sodium chloride IVPB 0.9 % Minibag+ 50 mL via Site# 1. Allergies verified and confirmed 5 rights. IV patency established. IV site checked: no pain, redness, or swelling. IV flushed thoroughly pre-medication administration. Information reviewed. Verbalizes understanding. -- 20:27 12/17/24 AGNES Buchanan R.N. DISPOSITION / DISCHARGE 16:32 12/17/24. BP: 172/105 MAP: 127. HR: 103. RR: 16. O2 saturation: 97% Temperature: 97.5 F. Pain level now 01/11. -- 21:12/17/24 AGNES Buchanan R.N. 17:12/17/24. Site #1 started in the right hand with an 18g needle with aseptic technique and good blood return; 1 attempt. Blood drawn: rainbow set tube(s). Saline lock flushed with 5 mL saline. -- 17:12/17/24 AGNES Swann R.N. 17:20 12/17/24. BP: 177/87 MAP: 123 mmHg. HR: 96 bpm. -- 21:12/17/24 AGNES Buchanan R.N. 17:23 12/17/24. HR: 91 bpm. O2 saturation: 93%. -- 21:12/17/24 AGNES Buchanan R.N. 17:28 12/17/24. HR: 91 bpm. O2 saturation: 94%. -- 21:12/17/24 AGNES Buchanan R.N. 17:31 12/17/24. BP: 135/78 MAP: 98 mmHg. HR: 91 bpm. -- 21:12/17/24 AGNES Buchanan R.N. 17:33 12/17/24. HR: 94 bpm. O2 saturation: 94%. -- 21:12/17/24 AGNES Buchanan R.N. 17:38 12/17/24. HR: 94 bpm. O2 saturation: 93%. -- 21:12/17/24 AGNES Buchanan R.N. 17:45 12/17/24. BP: 143/74 MAP: 94 mmHg. HR: 87 bpm. -- 21:13 09/15/25 EDJose Buchanan R.N. 17:48 12/17/24. HR: 89 bpm. O2 saturation: 96%. -- 21:12/17/24 AGNES Buchanan R.N. 17:53 12/17/24. HR: 88 bpm. O2 saturation: 94%. -- 21:12/17/24 Vishnu BarreraNMarco Antonio 17:58 12/17/24. HR: 90 bpm. O2 saturation: 93%. -- 21:12/17/24 EDJose Buchanan R.N. 18:00 12/17/24. BP: 135/78 MAP: 94 mmHg. HR: 89 bpm. -- 21:12/17/24 Vishnu BarreraNMarco Antonio 4 of 6 Nurse Narrative - JAMALNORMA STOCKTON, : 1965, , 18:03 12/17/24. HR: 76 bpm. O2 saturation: 97%. -- 21:12/17/24 AGNES Buchanan RMarco AntonioNMarco Antonio 18:08 12/17/24. HR: 79 bpm. O2 saturation: 97%. -- 21:12/17/24 Vishnu BarreraNMarco Antonio 18:12/17/24. HR: 79 bpm. O2 saturation: 96%. -- 21:12/17/24 Lesley Barrera.NMarco Antonio 18:16 12/17/24. BP: 159/90 MAP: 104 mmHg. HR: 78 bpm. -- 21:12/17/24 AGNES Buchanan R.N. 18:18 12/17/24. HR: 75 bpm. O2 saturation: 96%. -- 21:12/17/24 AGNES Buchanan R.N. 18:23 12/17/24. HR: 73 bpm. O2 saturation: 97%. -- 21:12/17/24 AGNES Buchanan R.N. 18:43 12/17/24. HR: 77 bpm. O2 saturation: 96%. -- 21:12/17/24 Vishnu BarreraNMarco Antonio 18:45 12/17/24. BP: 168/93 MAP: 118 mmHg. HR: 85 bpm. -- 21:12/17/24 Vishnu BarreraNMarco Antonio 18:48 12/17/24. HR: 67 bpm. O2 saturation: 98%. -- 21:12/17/24 Vishnu BarreraNMarco Antonio 18:53 12/17/24. HR: 81 bpm. O2 saturation: 97%. -- 21:12/17/24 Vishnu BarreraNMarco Antonio 18:58 12/17/24. HR: 82 bpm. O2 saturation: 98%. -- 21:12/17/24 Vishnu BarreraNMarco Antonio 19:00 12/17/24. BP: 136/89 MAP: 104 mmHg. HR: 89 bpm. -- 21:12/17/24 Vishnu BarreraNMarco Antonio 19:03 12/17/24. HR: 81 bpm. O2 saturation: 95%. -- 21:12/17/24 Vishnu BarreraNMarco Antonio 19:08 12/17/24. HR: 74 bpm. O2 saturation: 92%. -- 21:12/17/24 Vishnu BarreraNMarco Antonio 19:12/17/24. IV NS 0.9 %: Medication Discontinued. bag #1. Total amount infused: 1000 mL. IV patency established. IV site checked: no pain, redness, or swelling. IV flushed thoroughly post-medication administration. -- 21:12/17/24 Vishnu BarreraNMarco Antonio 19:12/17/24. HR: 80 bpm. O2 saturation: 95%. -- 21:12/17/24 Vishnu BarreraNMarco Antonio 19:12/17/24. BP: 142/72 MAP: 95 mmHg. HR: 80 bpm. -- 21:12/17/24 Vishnu BarreraNMarco Antonio 19:18 12/17/24. HR: 81 bpm. O2 saturation: 97%. -- 21:12/17/24 AGNES Buchanan R.N. 19:23 12/17/24. HR: 82 bpm. O2 saturation: 97%. -- 21:12/17/24 AGNES Buchanan R.N. 19:28 12/17/24. HR: 80 bpm. O2 saturation: 96%. -- 21:12/17/24 AGNES Buchanan R.N. 19:30 12/17/24. BP: 140/68 MAP: 92 mmHg. HR: 79 bpm. -- 21:12/17/24 AGNES Buchanan R.N. 19:38 12/17/24. HR: 70 bpm. O2 saturation: 96%. -- 21:12/17/24 AGNES Buchanan R.N. 19:43 12/17/24. HR: 74 bpm. O2 saturation: 97%. -- 21:12/17/24 AGNES Buchanan R.N. 19:45 12/17/24. BP: 134/70 MAP: 93 mmHg. HR: 72 bpm. -- 21:12/17/24 AGNES Buchanan R.N. 19:48 12/17/24. HR: 82 bpm. O2 saturation: 94%. -- 21:12/17/24 AGNES Buchanan R.N. 19:53 12/17/24. HR: 77 bpm. O2 saturation: 96%. -- 21:12/17/24 AGNES Buchanan R.N. 20:00 12/17/24. BP: 144/87 MAP: 106 mmHg. HR: 72 bpm. -- 21:12/17/24 AGNES Buchanan R.N. 20:12/17/24. HR: 72 bpm. O2 saturation: 94%. -- 21:12/17/24 AGNES Buchanan R.N. 20:15 12/17/24. BP: 139/86 MAP: 100 mmHg. HR: 69 bpm. -- 21:12/17/24 AGNES Buchanan R.N. 20:30 12/17/24. BP: 120/68 MAP: 85 mmHg. HR: 77 bpm. -- 21:12/17/24 AGNES Buchanan R.N. 20:45 12/17/24. BP: 136/93 MAP: 101 mmHg. HR: 80 bpm. -- 21:13 12/17/24 EDT Ana Cristina Buchanan R.N. 20:57 12/17/24. cefTRIAXone (Rocephin) IVPB 1gm/50ml NS: Medication Discontinued. IV infused. Total amount infused: 50 mL. IV patency established. IV site checked: no pain, redness, or swelling. IV flushed thoroughly post-medication administration. -- 21:12 12/17/24 EDT Ana Cristina Buchanan R.N. 21:00 12/17/24. BP: 147/82 MAP: 101 mmHg. HR: 76 bpm. -- 21:13 12/17/24 EDT Ana Cristina Buchanan R.N. 21:04 12/17/24. Site #1 removed upon discharge. -- 21:12/17/24 EDT Ana Cristina Buchanan R.N. Departure time: 21:12/17/2024. -- 21:12/17/24 EDT Ana Cristina Buchanan R.N. 5 of 6 Nurse Narrative - NORMA ALONSO, : 1965, , 21:14 12/17/24. Condition at departure: stable. No learning barriers present. Reviewed medication(s). Treatments reviewed. Reviewed referral to a primary care physician. Patient verbalized understanding. Written instructions provided in Slovenian. The patient was discharged home and accompanied by spouse. The patient left ambulatory and via private vehicle. Spouse driving. -- 21:12/17/24 EDT Ana Cristina Buchanan R.N. (Electronically signed by Ana Cristina Buchanan R.N. 12/17/24 21:15:31 EDT) Generated by [facility] 6 of 6 ED SUPER BILL Observed: 12/17/2024 4:11 PM Status: F Source: [facility] GAVIN DO NORMA B: 1965, , [address] [address] [id number] 12/17/2024 Patient: NORMA ALONSO Sex: Female : 1965 Age: 59y Item Facility Profession Category Description Code al Code Quantity Fee Total Drugs Normal 412787 2 $0.00 $0.00 Saline 1000cc (496611) Nurse/E/M EMERGENCY 532361 1 $0.00 $0.00 DEPARTMEN T VISIT HIGH/URGEN T SEVERITY (35906-74) Nurse/IV/IM/ Drip/IVPB 116303 1 $0.00 $0.00 Infusions initial (23802) Nurse/IV/IM/ Hydration 661349 2 $0.00 $0.00 Infusions additional hour (85808) Nurse/IV/IM/ IM/SQ 430131 1 $0.00 $0.00 Infusions (65338) 1 of 2 Superbill - NORMA ALONSO, : 1965, , Nurse/IV/IM/ IVP 930926 4 $0.00 $0.00 Infusions additional push (84710) Grand Total $0.00 Providers Phi Ortiz D.O. Chief Complaint COUGH and CHILLS. Principal Diagnosis Vomiting with nausea and dehydration. Acute urinary tract infection with cystitis. No hematuria. ICD-10 Codes N30.90: Cystitis, unspecified without hematuria R11.2: Nausea with vomiting, unspecified 2 of 2 ED MED ADMINISTRATION DETAIL Observed: 0 12/17/2024 4:11 PM Status: F Source: [facility] Shoe Repairer - NORMA ALONSO DO B: 1965, , Medication Administration Record [address] [place] [address] [id number] 12/17/2024 Patient: NORMA ALONSO Sex: Female : 1965 Age: 59y MEASUREMENTS: Wt: 72.6 kg, Ht/Rafy: 61.0 in, BMI: 30.23 ALLERGIES: No known drug allergies Medication Ordered Medication Administration Date/Time IV NS 0.9 % 17:10 12/17 IV NS 0.9 % 1000 mL started in bag#1 1000 Started 1000 mL at 999 mL at 999 mL/hr via Site# 1. Allergies verified and 17:10 12/17/2024 mL/hr (NOW x1) confirmed 5 rights. IV patency established. IV site Michelle Swann, checked: no pain, redness, or swelling. IV flushed R.NMarco Antonio thoroughly pre-medication administration. Information Stopped reviewed. Verbalizes understanding. - 17:14 Michelle 18:19 12/17/2024 Cecilia Swann R.N. 18:19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 KIDNEY FAILURE: <15mL/MIN/1.73 SQ METERS THIS TEST SHOULD ONLY BE USED FOR PATIENTS 18 YEARS OF AGE AND OLDER. Performed By: #### [id number] ## ## [place] [address] LIPASE Collected: 2:10 PM Status: F Source: [facility] TYPE CODE TESTS RESULT OUT OF RANGE REFERENCE UNITS LAB LIPASE([facility]) LIPASE 39.0 15.0 - 78.0 U/L Result Comment: *PLEASE NOTE THAT RANGES FOR LIPASE HAVE CHANGED OF 04/01/23 DUE TO AN ASSAY UPDATE BY THE CLINICAL COUNSELOR.THE NEW ASSAY RANGE IS 6-250 U/L, WITH A REFERENCE RANGE OF 16-77 U/L. Performed By: #### [id number] ## ## [place] [address] CT ABDOMEN/PELVIS W Observed: 08/07/2024 1:16 PM Status: F Source: [place] [id number] Patient: NORMA ALONSO Phone#: : [phone] Age: 59 Gender: F Pt. Type: ER Account: [id number] Location: 2 Ordering: DR. JET MELLO Exam Date: 08/07/2024/12:24 Family Phys: OSVALDO SUE Charge Code: [id number] Physician: [place] Order #: [id number] Dose#: 20.00 PROCEDURE: CT ABDOMEN/PELVIS WITH CONTRAST COMPARISON: [facility], CT, ABDOMEN/PELVIS W CON, 10/07/2021, 12:19. INDICATIONS: Abdominal pain. TECHNIQUE: After obtaining the patient's consent, CT images were created with non-ionic intravenous contrast material. All CT scans at this facility use dose modulation, iterative reconstruction, and/or weight based dosing when appropriate to reduce radiation dose to as low as reasonably achievable. IV CONTRAST: Omnipaque 350,80ml TOTAL DOSE: 20.00 CTDIvol(mGy) FINDINGS: LIVER: Liver is diffusely decreased in attenuation, consistent with diffuse fatty infiltration of the liver. BILIARY: Surgical clips are in the gallbladder fossa. PANCREAS: Normal. No lesion, fluid collection, ductal dilatation, or atrophy. SPLEEN: Normal. No enlargement or focal lesion. KIDNEYS: Kidneys enhance and excrete contrast symmetrically. No hydronephrosis. ADRENALS: Normal. No mass or enlargement. AORTA/VASCULAR: No aortic aneurysm. Atherosclerotic calcifications of the aorta and branch vessels. RETROPERITONEUM: Normal. No mass or adenopathy. BOWEL/MESENTERY: Small hiatal hernia. No bowel obstruction or dilatation. No significant stool burden. Appendix is not visualized. ABDOMINAL WALL: Normal. No mass or hernia. URINARY BLADDER: Normal. No visible focal wall thickening, lesion, or calculus. PELVIC NODES: Normal. No adenopathy. PELVIC ORGANS: Uterus is present. Cystic lesions in the adnexa. On the right measuring 2.2 x 2.0 cm, previously 2.3 x 1.9 cm in 2021. On the left measuring 4.0 x 3.6 cm, previously 3.5 x 3.2 cm in 2021. Prominent pelvic vessels. BONES: Facet arthropathy in the lumbar spine. Continued Report - Page 2 of 2 Patient: NORMA ALONSO Phone#: : [phone] Age: 59 Gender: F Pt. Type: ER Account: [id number] Location: [facility] Ordering: DR. JET MELLO Exam Date: 08/07/2024/12:24 Family Phys: OSVALDO SUE Charge Code: [id number] Physician: [place] Order #: [id number] Dose#: 20.00 LUNG BASES: Normal. No visible pulmonary or pleural disease. OTHER: Negative. CONCLUSION: 1. No appreciable acute intra-abdominal or pelvic abnormality. 2. Enlarging right adnexal cyst, demonstrate slow interval growth compared to 2021. 3. Prominent pelvis vessels, correlate for pelvic congestion syndrome. 4. Fatty infiltration of the liver Dictated by: Serenity Krause MD on 08/07/2024 at 12:57 Approved by: Serenity Krause MD on 08/07/2024 at 13:16 CBC + DIFF Collected: 11:35 AM Status: F Source: [facility] TYPE CODE TESTS RESULT OUT OF RANGE REFERENCE UNITS LAB CBC + DIFF(LOINC) CBC + DIFF Result Comment: CBC-COMPLETE BLOOD COUNT LAB WBC(LOINC) WBC 12.3 High 4.5 - 10.8 x 10EE3/UL LAB RBC(LOINC) RBC 5.17 4.10 - 5.30 x 10EE6/UL LAB HEMOGLOBIN(VERO NC) HEMOGLOBIN 16.5 High 12.0 - 16.0 g/dl LAB HEMATOCRIT(VERO NC) HEMATOCRIT 48.1 High 34.0 - 46.0 % LAB MCV(LOINC) MCV 93 80 - 99 fl LAB MCH(LOINC) MCH 32 27 - 33 pg LAB MCHC(LOINC) MCHC 34 32 - 36 X10 3 LAB RDW/CV(LOINC) RDW/CV 13.4 12.0 - 15.6 % LAB PLATELET(LOINC ) PLATELET 299 150 - 450 x10EE3/UL LAB MPV(LOINC) MPV 8.3 6.6 - 10.5 fl Result Comment: AUTOMATED DI FFERENTIAL LAB NEUT %(LOINC) NEUT % 81.7 High 46.0 - 76.0 % LAB LYMPH %(LOINC) LYMPH % 14.5 Low 20.0 - 45.0 % LAB MONOS %(LOINC) MONOS % 3.3 0.0 - 10.0 % LAB EO %(LOINC) EO % 0.3 0.0 - 7.0 % LAB BASO %(LOINC) BASO % 0.2 0.0 - 2.0 % LAB Lymph #(LOINC) Lymph # 1.78 0.80 - 2.80 x10EE 3/UL LAB Neut #(LOINC) Neut # 10.01 High 1.50 - 7.10 x10EE3 /UL LAB Republic #(LOINC) Republic # 0.40 0.20 - 1.00 x10EE3 /UL LAB EO #(LOINC) EO # 0.04 0.00 - 0.50 x10EE3/U L LAB Baso #(LOINC) Baso # 0.02 0.00 - 0.10 x10EE3 /UL LAB MANUAL DIFF(LOINC) MANUAL DIFF N/A LAB MORPHOLOGY(VERO NC) MORPHOLOGY N/A Performed By: #### [id number] ## ## [facility],[address] [place] [address] ED PHYSICIAN CLINICAL REPORT Observed: 0 08/07/2024 10:22 AM Status: F Source: [facility] Narrative Physician Clinical Narrative [address] [place] [address] [phone] 08/07/2024 10:22:00 Patient: NORMA ALONSO Sex: Female : 1965 Age: 59y Disposition: Discharge to Home Disposition Decision Time: 17:21 08/07/2024 Departure Time: 17:28 08/07/2024 Measurements Wt: 72.6 kg, Ht/Rafy: 61.0 in, BMI: 30.23 Initial Vital Sign Measured Time BP MAP HR RR O2Sat ETCO2 Temp Pain GCS RTS 10:34 08/07/2024 156/98 117 83 16 96% 97.7 F 7 Time Seen: 10:47 08/07/2024. Arrived- By private vehicle. Historian- patient. HISTORY OF PRESENT ILLNESS Chief Complaint: VOMITING and DIARRHEA. The patient has had nausea, vomiting, diarrhea and abdominal pain. This started 3 days and is still present. (59-year-old female presents to ER complaining of some right-sided abdominal pain for which she was seen on Tuesday. CT abdomen pelvis shows no acute findings. CBC showed a white count of 12.3 with a H16.5 and 48.). Recent medical care: The patient was seen recently at this facility. REVIEW OF SYSTEMS 1 of 14 Narrative : No difficulty with urination or dark urine. NEUROLOGICAL: No headache. RESPIRATORY: No cough. CVS: No chest pain. PAST HISTORY See nurses notes. fatty liver Gastroesophageal Reflux Disease Headache Hyperlipidemia Hypertension Myocardial Infarction Surgeries: Cholecystectomy Tubal Ligation Medications: atorvastatin 20 mg tablet: 1 tablet once a day . gabapentin 300 mg capsule: 1 capsule three times a day . loratadine 10 mg tablet: 1 tablet once a day . omeprazole 40 mg capsule,delayed release: 1 capsule once a day . propranolol ER 160 mg capsule,24 hr,extended release: 1 capsule once a day . trazodone 50 mg tablet: 1 tablet once a day . Allergies: no known drug allergies SOCIAL HISTORY Never smoker. No alcohol use or drug use. ADDITIONAL NOTES The nursing notes have been reviewed. PHYSICAL EXAM 2 of 14 Narrative Vital Signs: Have been reviewed. Eyes: Pupils equal, round and reactive to light. Eyes normal inspection. ENT: Ears normal. Nose normal. Pharynx normal. Neck: Normal inspection. Neck supple. CVS: Normal heart rate. Heart sounds normal. Pulses normal. Respiratory: No respiratory distress. Painless inspiration. Breath sounds normal. Abdomen: Soft. Moderate tenderness (There is diffuse right-sided abdominal tenderness. no rebound, rigidity or masses. No CVA tenderness.). Bowel sounds normal. No organomegaly. No mass. Back: Normal inspection. No CVA tenderness. Skin: Skin warm. Normal skin color. No rash. Neuro: Oriented X 3. No motor deficit. LABS, X-RAYS, AND EKG Laboratory Tests: CBC + DIFF Final PAOLA: 08/07/2024 11:35:00 EDT MsgRcvd: 08/07/2024 12:27 EDT Lab Test Result Reference Status Received Comments 08/07/2024 12:27 CBC-COMPLETE CBC + DIFF Final EDT BLOOD COUNT 12.3 x 10/UL 08/07/2024 12:27 WBC 4.5 - 10.8 Final Above high normal EDT 08/07/2024 12:27 RBC 5.17 x 10/UL 4.10 - 5.30 Final EDT 16.5 g/dl 08/07/2024 12:27 HEMOGLOBIN 12.0 - 16.0 Final Above high normal EDT 48.1 % 08/07/2024 12:27 HEMATOCRIT 34.0 - 46.0 Final Above high normal EDT 08/07/2024 12:27 MCV 93 fl 80 - 99 Final EDT 3 of 14 Narrative Lab Test Result Reference Status Received Comments 08/07/2024 12:27 MCH 32 pg 27 - 33 Final EDT 08/07/2024 12:27 MCHC 34 X10 3 32 - 36 Final EDT 08/07/2024 12:27 RDW/CV 13.4 % 12.0 - 15.6 Final EDT 08/07/2024 12:27 PLATELET 299 x10/UL 150 - 450 Final EDT 08/07/2024 12:27 AUTOMATED MPV 8.3 fl 6.6 - 10.5 Final EDT DIFFERENTIAL 81.7 % 08/07/2024 12:27 NEUT % 46.0 - 76.0 Final Above high normal EDT 14.5 % 08/07/2024 12:27 LYMPH % 20.0 - 45.0 Final Below low normal EDT 08/07/2024 12:27 MONOS % 3.3 % 0.0 - 10.0 Final EDT 08/07/2024 12:27 EO % 0.3 % 0.0 - 7.0 Final EDT 08/07/2024 12:27 BASO % 0.2 % 0.0 - 2.0 Final EDT 08/07/2024 12:27 Lymph # 1.78 x10/UL 0.80 - 2.80 Final EDT 10.01 x10/UL 08/07/2024 12:27 Neut # 1.50 - 7.10 Final Above high normal EDT 08/07/2024 12:27 Republic # 0.40 x10/UL 0.20 - 1.00 Final EDT 4 of 14 Narrative Lab Test Result Reference Status Received Comments 08/07/2024 12:27 EO # 0.04 x10/UL 0.00 - 0.50 Final EDT 08/07/2024 12:27 Baso # 0.02 x10/UL 0.00 - 0.10 Final EDT 08/07/2024 12:27 MANUAL DIFF N/A New Order EDT 08/07/2024 12:27 MORPHOLOGY N/A New Order EDT CMP with eGFR Final PAOLA: 08/07/2024 14:10:00 EDT MsgRcvd: 08/07/2024 14:48 EDT Lab Test Result Reference Status Received Comments COMPREHENSIVE 08/07/2024 CMP with eGFR Final METABOLIC 14:48 EDT PANEL 149 mmol/l 08/07/2024 SODIUM Above high 136 - 145 Final 14:48 EDT normal 08/07/2024 POTASSIUM 3.8 mmol/L 3.5 - 5.1 Final 14:48 EDT 110 mmol/L 08/07/2024 CHLORIDE Above high 98 - 107 Final 14:48 EDT normal 08/07/2024 CO2 28.0 mmol/L 21.0 - 32.0 Final 14:48 EDT 5 Narrative Lab Test Result Reference Status Received Comments 116 mg/dl 08/07/2024 GLUCOSE Above high 74 - 106 Final 14:48 EDT normal 08/07/2024 BUN 10 mg/dl 7 - 18 Final 14:48 EDT 08/07/2024 CREATININE 0.68 mg/dl 0.55 - 1.02 Final 14:48 EDT 46 U/L 08/07/2024 AST/SGOT Above high 13 - 39 Final 14:48 EDT normal 08/07/2024 ALK PHOS 76 U/L 46 - 116 Final 14:48 EDT 08/07/2024 CALCIUM 9.3 mg/dl 8.5 - 10.1 Final 14:48 EDT TOTAL 08/07/2024 7.7 g/dl 6.4 - 8.2 Final PROTEIN 14:48 EDT 08/07/2024 ALBUMIN 3.9 g/dL 3.4 - 5.0 Final 14:48 EDT 08/07/2024 GLOBULIN 3.8 G/DL 1.5 - 3.8 Final 14:48 EDT 08/07/2024 A/G RATIO 1.0 0.9 - 1.6 Final 14:48 EDT 1.1 mg/dl 08/07/2024 TOTAL BILI Above high 0.2 - 1.0 Final 14:48 EDT normal 08/07/2024 B/C RATIO 15 ratio 0 - 30 Final 14:48 EDT 6 Narrative Lab Test Result Reference Status Received Comments 82 U/L 08/07/2024 ALT/SGPT Above high 16 - 63 Final 14:48 EDT normal 08/07/2024 ANION GAP 15 mmol/L 10 - 20 Final 14:48 EDT 08/07/2024 AGE 59 years Final 14:48 EDT 08/07/2024 eGFR >60 ML/MINUTE 60 - 999 Final 14:48 EDT 7 of 14 Narrative Lab Test Result Reference Status Received Comments ACCORDING TO THE NATIONAL KIDNEY DISEASE EDUCATION PROGRAM(NKDE), A NORMAL eGFR IS A VALUE GREATER THAN OR EQUAL TO 60 ML/MIN/1.73 SQ METERS. 08/07/2024 CHRONIC KIDNEY eGFR(AA) >60 ML/MINUTE 60 - 999 Final 14:48 EDT DISEASE: <60mL/MIN/1.73 SQ METERS KIDNEY FAILURE: <15mL/MIN/1.73 SQ METERS THIS TEST SHOULD ONLY BE USED FOR PATIENTS 18 YEARS OF AGE AND OLDER. LIPASE Final PAOLA: 08/07/2024 14:10:00 EDT MsgRcvd: 08/07/2024 14:48 EDT Lab Test Result Reference Status Received Comments 8 of 14 Narrative Lab Test Result Reference Status Received Comments *PLEASE NOTE THAT RANGES FOR LIPASE HAVE CHANGED OF 04/01/23 DUE TO AN ASSAY 08/07/2024 LIPASE 39.0 U/L 15.0 - 78.0 Final UPDATE BY THE 14:48 EDT CLINICAL COUNSELOR.THE NEW ASSAY RANGE IS 6-250 U/L, WITH A REFERENCE RANGE OF 16-77 U/L. URINALYSIS Final PAOLA: 08/07/2024 16:40:00 EDT MsgRcvd: 08/07/2024 17:11 EDT Lab Test Result Reference Status Received Comments 08/07/2024 17:11 URINALYSIS Final URINALYSIS EDT 08/07/2024 17:11 Specimen Type R New Order EDT NORMAL: 08/07/2024 17:11 Color yellow Final YELLOW EDT NORMAL: 08/07/2024 17:11 Clarity clear Final CLEAR EDT NORMAL: 08/07/2024 17:11 ph 6.5 Final 5.0-8.0 EDT 30 NORMAL: 08/07/2024 17:11 Protein Final Abnormal NEGATIVE EDT 9 of 14 Narrative Lab Test Result Reference Status Received Comments NORMAL: 08/07/2024 17:11 Glucose NORM Final NORMAL EDT 15 NORMAL: 08/07/2024 17:11 Ketone Final Abnormal NEGATIVE EDT NORMAL: 08/07/2024 17:11 Bilirubin NEG Final NEGATIVE EDT 10 NORMAL: 08/07/2024 17:11 Blood Final Abnormal NEGATIVE EDT 4 NORMAL: 08/07/2024 17:11 Urobilinog Final Abnormal NORMAL EDT NORMAL: 08/07/2024 17:11 Sp Montgomery 1.010 Final 1.010-1.030 EDT NORMAL: 08/07/2024 17:11 Nitrite NEG Final NEGATIVE EDT NORMAL: 08/07/2024 17:11 Leukocytes NEG Final NEGATIVE EDT 08/07/2024 17:11 Microscopic SEE BELOW Final MICROSCOPIC EDT 08/07/2024 17:11 Wbc NONE 0-5/hpf Final EDT 08/07/2024 17:11 Rbc 0-5 0-3/hpf Final EDT 08/07/2024 17:11 Casts NONE Final EDT 08/07/2024 17:11 Crystals NONE Final EDT 10 of 14 Narrative Lab Test Result Reference Status Received Comments 08/07/2024 17:11 Amorphous NONE Final EDT 08/07/2024 17:11 Bacteria NONE Final EDT 08/07/2024 17:11 Epi Cells FEW Final EDT 08/07/2024 17:11 Mucous NONE Final EDT 08/07/2024 17:11 Yeast NONE Final EDT Diagnostic Study Tests: CT ABDOMEN/PELVIS W Final EXAM Date: 08/07/2024 13:16:00 EDT MsgRcvd: 08/07/2024 13:20 EDT [place] [address] Patient: NORMA ALONSO Phone#: : [phone] Age: 59 Gender: F Pt. Type: ER Account: [id number] Location: 052 Ordering: DR. JET MELLO Exam Date: 08/07/2024/12:24 Family Phys: OSVALDO SUE Charge Code: [id number] Physician: [place] Order #: [id number] Dose#: 20.00 PROCEDURE: CT ABDOMEN/PELVIS WITH CONTRAST COMPARISON: [facility], CT, ABDOMEN/PELVIS W CON, 10/07/2021, 12:19. INDICATIONS: Abdominal pain. TECHNIQUE: After obtaining the patient's consent, CT images were created with non-ionic intravenous contrast material. 11 of [address] scans at this facility use dose modulation, iterative reconstruction, and/or weight based dosing when appropriate to reduce radiation dose to as low as reasonably achievable. IV CONTRAST: Omnipaque 350,80ml TOTAL DOSE: 20.00 CTDIvol(mGy) FINDINGS: LIVER: Liver is diffusely decreased in attenuation, consistent with diffuse fatty infiltration of the liver. BILIARY: Surgical clips are in the gallbladder fossa. PANCREAS: Normal. No lesion, fluid collection, ductal dilatation, or atrophy. SPLEEN: Normal. No enlargement or focal lesion. KIDNEYS: Kidneys enhance and excrete contrast symmetrically. No hydronephrosis. ADRENALS: Normal. No mass or enlargement. AORTA/VASCULAR: No aortic aneurysm. Atherosclerotic calcifications of the aorta and branch vessels. RETROPERITONEUM: Normal. No mass or adenopathy. BOWEL/MESENTERY: Small hiatal hernia. No bowel obstruction or dilatation. No significant stool burden. Appendix is not visualized. ABDOMINAL WALL: Normal. No mass or hernia. URINARY BLADDER: Normal. No visible focal wall thickening, lesion, or calculus. PELVIC NODES: Normal. No adenopathy. PELVIC ORGANS: Uterus is present. Cystic lesions in the adnexa. On the right measuring 2.2 x 2.0 cm, previously 2.3 x 1.9 cm in 2021. On the left measuring 4.0 x 3.6 cm, previously 3.5 x 3.2 cm in 2021. Prominent pelvic vessels. BONES: Facet arthropathy in the lumbar spine. Continued Report - Page 2 of 2 Patient: NORMA ALONSO Phone#: : [phone] Age: 59 Gender: F Pt. Type: ER Account: [id number] Location: 2 Ordering: DR. JET MELLO Exam Date: 08/07/2024/12:24 Family Phys: OSVALDO SUE Charge Code: [id number] Physician: [place] Order #: [id number] Dose#: 20.00 LUNG BASES: Normal. No visible pulmonary or pleural disease. OTHER: Negative. CONCLUSION: 1. No appreciable acute intra-abdominal or pelvic abnormality. 2. Enlarging right adnexal cyst, demonstrate slow interval growth compared to 2021. 12 of 14 Narrative 3. Prominent pelvis vessels, correlate for pelvic congestion syndrome. 4. Fatty infiltration of the liver Dictated by: Serenity Krause MD on 08/07/2024 at 12:57 Approved by: Serenity Krause MD on 08/07/2024 at 13:16 PROGRESS AND PROCEDURES MEDICAL DECISION MAKING: (This 59-year-old female presented to ER complaining of nausea, vomiting, diarrhea since Tuesday. She was seen here on Tuesday also with some right-sided abdominal pain but did not have significant vomiting or diarrhea at the time she states. Her evaluation was negative and she was sent home with a prescription for Bentyl but did not fill it.. She denies any fever, dysuria, melena. CT abdomen pelvis today shows no acute findings. White count 12.3. BUN creatinine 10 and 0.68. LFT showed bilirubin slightly elevated 1.1 with cutoff 1.0. While in ER pt received Iv fluid bolus of 500 ml NS and IV Zofran and IV Toradol. Urine still pending and and if negative patient will be discharged with Rx for Zofran.). Disposition: Discharged in fair condition. Discharge decision based on the following: patient's condition is stable; patient's exam is stable. CLINICAL IMPRESSION Vomiting with nausea. Diarrhea Chronic right upper quadrant and right lower quadrant abdominal pain. Probable subacute noninfectious gastroenteritis. DISCHARGE INSTRUCTIONS (Stay on a clear liquid diet for the next 24 hours taking only small sips at a time. If this is tolerated with no further vomiting or diarrhea advanced to bland diet. If bland diet as tolerated for 24 hours with no further vomiting or diarrhea resume regular diet. Take Zofran as directed for nausea or vomiting. Take Tylenol and Motrin every 6 hours as needed for discomfort. Get your previous prescription for Bentyl filled and take as directed for abdominal pain/cramps. See your family doctor in a few days for recheck. Return if worse.). Prescription Medications: zofran: Take 1 tablet by mouth four times a day for nausea/vomiting for 3 days, dispense 12 tablet. Refills 0. Pharmacy: [facility] [id number] [place] [address]. Narrative Follow-up with: Dr. Sue, Family, [facility], [facility], Phone: [phone], [address] [place] [address]. Follow up in two days. Call for an appointment. (Electronically signed by Jet Mello D.O. 08/28/24 23:59:08 EDT) Generated by [facility] 14 of 14 ED MED ADMINISTRATION DETAIL Observed: 0 08/07/2024 10:22 AM Status: F Source: [facility] Shoe Repairer Medication Administration Record [facility] [address] [place] [address] [id number] 08/07/2024 Patient: NORMA ALONSO Sex: Female : 1965 Age: 59y MEASUREMENTS: Wt: 72.6 kg, Ht/Arfy: 61.0 in, BMI: 30.23 ALLERGIES: No known drug allergies Medication Ordered Medication Administration Date/Time Zofran IVP 4 mg 11:08/07 Zofran IVP 4 mg given via Site# 1. Allergies verified Given (NOW x1) and confirmed 5 rights. IV patency established. IV site checked: no 11:36 08/07/2024 pain, redness, or swelling. IV flushed thoroughly pre-medication Hedy Mansfield R.N. administration. IVP given by nurse. Information reviewed with Scanned patient including reason for taking this medication. - 11:38 Hedy Mansfield R.N. IV NS 0.9 % 500 mL 11:51 08/07 IV NS 0.9 % 500 mL started in bag#1 500 mL at 500 Started at 500 mL/hr (NOW mL/hr via Site# 1. Allergies verified and confirmed 5 rights. Via IV 11:51 08/07/2024 x1) pump. IV patency established. IV site checked: no pain, redness, or Hedy Mansfield R.N. swelling. IV flushed thoroughly pre-medication administration. Stopped Information reviewed with patient including reason for taking this 13:44 08/07/2024 medication. - 11:55 Cecilia Chavira R.N. Scanned 13:44 08/07 Medication Discontinued: bag #1 completed. Total amount infused: 1000 mL. IV patency established. IV site checked: no pain, redness, or swelling. IV flushed thoroughly post-medication administration. - 22:44 Ana Cristina Buchanan R.N. 1 of 2 Shoe Repairer Medication Ordered Medication Administration Date/Time IV NS 0.9 % 500 mL 16:19 08/07 IV NS 0.9 % 500 mL started in bag#1 500 mL at 500 Started at 500 mL/hr (NOW mL/hr via Site# 1. Allergies verified and confirmed 5 rights. IV 16:19 08/07/2024 x1) patency established. IV site checked: no pain, redness, or swelling. Lesley Melo.[place] IV flushed thoroughly pre-medication administration. Medication Stopped Wastage: 500 mL wasted. - 16:20 Ana Cristina Buchanan R.N. 17:28 08/07/2024 Ana Cristina Buchanan R.N. 17:28 08/07 Medication Discontinued: bag #2. Total amount Scanned infused: 500 mL. IV patency established. IV site checked: no pain, redness, or swelling. IV flushed thoroughly post-medication administration. - 22:44 Ana Cristina Buchanan R.N. Zofran IVP 4 mg 16:08/07 Zofran IVP 4 mg given via Site# 1. Allergies verified Given (NOW x1) and confirmed 5 rights. IV patency established. IV site checked: no 16:20 08/07/2024 pain, redness, or swelling. IV flushed thoroughly pre-medication Lesley Melo.[place] administration. Information reviewed. Verbalizes understanding. - Scanned 16:20 Ana Cristina Buchanan R.N. KetorOLAC 16:20 05 KetorOLAC (Toradol) IVP 30 mg given via Site# 1. Given (Toradol) IVP 30 mg Allergies verified and confirmed 5 rights. IV patency established. IV 16:20 08/07/2024 (NOW x1) site checked: no pain, redness, or swelling. IV flushed thoroughly Lesley Melo.[place] pre-medication administration. Information reviewed. Verbalizes Scanned understanding. - 16:20 Ana Cristina Buchanan R.N. 2 of 2 ED VISIT SUMMARY Observed: 08/07/2024 10:22 AM Status: F Source: [facility] Visit Overview Visit Overview [address] [place] [address] [phone] 08/07/2024 Patient: NORMA ALONSO Sex: Female : 1965 Age: 59y 08/28/2024 11:59 PM EDT ED Arrival:10:22 08/07/2024 EDT Status: Recent Travel:no Language:eng Adv Directive:No Isolation Status: Ethnicity:N Fall Risk:no risk Infectious Disease Exposure:no Measurements:5'1 / 154.9 Self-Harm Status:risk Sepsis Screen:negative cm 160.0 lb / 72.6 kg Chief Complaint:DIARRHEA, NAUSEA, VOMITING, (Bonny ), (Immodium, zofran), and (Tuesday morning) ALLERGIES No Known Drug Allergies HOME MEDICATIONS atorvastatin 20 mg tablet: 1 tablet once a day . gabapentin 300 mg capsule: 1 capsule three times a day . loratadine 10 mg tablet: 1 tablet once a day . omeprazole 40 mg capsule,delayed release: 1 capsule once a day . propranolol ER 160 mg capsule,24 hr,extended release: 1 capsule once a day . 1 3 Visit Overview trazodone 50 mg tablet: 1 tablet once a day . PAST MEDICAL HISTORY / PROBLEMS fatty liver Gastroesophageal Reflux Disease Headache Hyperlipidemia Hypertension LNMP: No menstrual periods Myocardial Infarction See nurses notes PAST SURGICAL HISTORY Cholecystectomy Tubal Ligation SOCIAL HISTORY Smoking status: No Alcohol use: No Drug use: No ED COURSE MEDICATIONS GIVEN IN EMERGENCY DEPARTMENT 11:36 08/07/24 Zofran IVP 4 mg 11:51 08/07/24 IV NS 0.9 % 500 mL 500 mL/hr 16:19 08/07/24 IV NS 0.9 % 500 mL 500 mL/hr 16:20 08/07/24 KetorOLAC (Toradol) IVP 30 mg 16:20 08/07/24 Zofran IVP 4 mg IV SITE INFORMATION INTAKE OUTPUT REASSESMENT (most recent) 2 of 3 Visit Overview 10:45 08/07/24. Ambulatory to room. ( Pt was just seen on Tuesday, she hasn't been able to chicken picker her medications yet. She states she has been throwing up and having diarrhea since Tuesday.). GENERAL / NEURO / PSYCH: Alert. Oriented X 4. Appears in no acute distress. RESPIRATORY: Respirations not labored. CVS: Capillary refill less than 2 seconds. GI / : The patient has had nausea and diarrhea. Emesis noted. Abdomen soft and nontender. SKIN: Skin is warm and dry. VITAL SIGNS First Vitals Last Vitals Temp 10:34 08/07/24 97.7 F Temp 10:34 08/07/24 97.7 F BP 10:34 08/07/24 156/98 BP 10:34 08/07/24 156/98 HR 10:34 08/07/24 83 HR 10:34 08/07/24 83 RR 10:34 08/07/24 16 RR 10:34 08/07/24 16 O2 Sat 10:34 08/07/24 96% O2 Sat 10:34 08/07/24 96% Pain 10:34 08/07/24 7 Pain 10:34 08/07/24 7 ETCO2 10:34 08/07/24 ETCO2 10:34 08/07/24 GCS 10:34 08/07/24 GCS 10:34 08/07/24 RTS 10:34 08/07/24 RTS 10:34 08/07/24 PROCEDURES NURSING INTERVENTIONS LABS / STUDIES LABS / STUDIES ORDERED CBC w Diff CMP CT ABD/PEL w Cont Lipase Urinalysis Urinalysis CLINICAL IMPRESSION CHRONIC RIGHT UPPER QUADRANT AND RIGHT LOWER QUADRANT ABDOMINAL PAIN DIARRHEA PROBABLE SUBACUTE NONINFECTIOUS GASTROENTERITIS VOMITING WITH NAUSEA 3 of 3 ED NURSES CLINICAL NOTE Observed: 2024 10:22 AM Status: F Source: [facility] Nurse Narrative Nurse Clinical Narrative [address] [place] [address] [phone] 08/07/2024 10:22:00 Patient: NORMA ALONSO Sex: Female : 1965 Age: 59y Disposition: Discharge to Home Disposition Decision Time: 17:21 08/07/2024 Departure Time: 17:28 08/07/2024 TRIAGE Arrived by private vehicle. Historian: (patient). Primary physician (Bonny). Triage time: 10:29 08/07/2024. Acuity: LEVEL 3. Chief Complaint: NAUSEA, VOMITING and DIARRHEA. Onset. (Tuesday morning). The patient has had vomiting, diarrhea and abdominal pain. Treatment TAR CHASER: Seen within the last 72 hours in a medical facility. (Immodium, zofran). SEPSIS SCREEN: NEGATIVE. SIRS criteria negative. No possible sources of infection. -- 10:34 08/07/24 AGNES Mansfield R.N. 10:34 08/07/24. BP: 156/98 MAP: 117. HR: 83. RR: 16. O2 saturation: 96% Temperature: 97.7 F. Pain level now 10/11. -- 10:34 08/07/24 CEET Hedy Mansfield R.N. Measurements: 10:32 08/07/24 Wt: 72.6 kg, Ht/Rafy: 61.0 in, BMI: 30.23 -- 10:32 08/07/24 CEET Hedy Mansfield R.N. Medications: trazodone 50 mg tablet: 1 tablet once a day . -- 10:30 08/07/24 AGNES Mansfield R.N. 1 of 4 Nurse Narrative propranolol ER 160 mg capsule,24 hr,extended release: 1 capsule once a day . -- 10:08/07/24 AGNES Mansfield R.N. omeprazole 40 mg capsule,delayed release: 1 capsule once a day . -- 10:30 08/07/24 AGNES Mansfield R.N. loratadine 10 mg tablet: 1 tablet once a day . -- 10:30 08/07/24 CEET Hedy Mansfield R.N. gabapentin 300 mg capsule: 1 capsule three times a day . -- 10:30 08/07/24 AGNES Mansfield R.N. atorvastatin 20 mg tablet: 1 tablet once a day . -- 10:08/07/24 AGNES Mansfield R.N. 10:29 08/07/24. Preferred Pharmacy: [facility]. -- 10:34 08/07/24 CEET Hedy Mansfield R.N. Allergies: no known drug allergies -- 10:30 08/07/24 CEET Hedy Mansfield R.N. Problems: fatty liver -- 10:31 08/07/24 AGNES Mansfield R.N. Myocardial Infarction -- 10:08/07/24 AGNES Mansfield R.N. Hypertension -- 10:31 08/07/24 AGNES Mansfield R.N. Hyperlipidemia -- 10:08/07/24 AGNES Mansfield R.N. Gastroesophageal Reflux Disease -- 10:08/07/24 AGNES Mansfield R.N. Headache -- 10:08/07/24 AGNES Mansfield R.N. ADDITIONAL SURGERIES: Cholecystectomy -- 10:08/07/24 AGNES Mansfield R.N. Tubal Ligation -- 10:08/07/24 AGNES Mansfield R.N. History 10:08/07/24. SOCIAL HX: Never smoker. No alcohol use or drug use. The patient has not traveled outside the [place] Infectious disease exposure: No infectious disease exposure. ABUSE ASSESSMENT: The patient answered yes to the question(s) Do you feel safe in your home? and no to the question(s) Are you afraid to go home?. SELF HARM ASSESSMENT: Self harm assessment was performed. The patient answered no to the question(s) Have you recently felt down, depressed, or hopeless? and Do you have thoughts of harming or 2 of 4 Nurse Narrative killing yourself?. FALL RISK ASSESSMENT: Fall risk assessment completed. No risk factors identified. -- 10:34 08/07/24 AGNES Mansfield R.N. 10:08/07/24. PAST MEDICAL HX: LNMP: No menstrual periods. -- 10:08/07/24 AGNES Mansfield R.N. Interventions 10:29 08/07/24. Advanced care plan discussed with patient. Patient does not have advanced directive. -- 10:08/07/24 AGNES Mansfield R.N. PHYSICAL ASSESSMENT 10:45 08/07/24. Ambulatory to room. ( Pt was just seen on Tuesday, she hasn't been able to chicken picker her medications yet. She states she has been throwing up and having diarrhea since Tuesday.). GENERAL / NEURO / PSYCH: Alert. Oriented X 4. Appears in no acute distress. RESPIRATORY: Respirations not labored. CVS: Capillary refill less than 2 seconds. GI / : The patient has had nausea and diarrhea. Emesis noted. Abdomen soft and nontender. SKIN: Skin is warm and dry. -- 11:10 08/07/24 AGNES Buchanan R.N. NURSING PROGRESS NOTES 11:35 08/07/24. Patient transported to radiology by stretcher with manufacturing maintenance technician. -- 13:56 08/07/24 AGNES Buchanan R.N. 11:35 08/07/24. Site #1 started via IV in the left antecubital space with a 20g angiocath with aseptic technique and good blood return; 1 attempt. Blood drawn: rainbow set tube(s). Labeled in the presence of the patient and sent to the lab. Saline lock flushed with 5 mL saline. -- 11:36 08/07/24 CEET Hedy Mansfield R.N. 11:36 08/07/24. Zofran IVP 4 mg given via Site# 1. Allergies verified and confirmed 5 rights. IV patency established. IV site checked: no pain, redness, or swelling. IV flushed thoroughly pre-medication administration. IVP given by nurse. Information reviewed with patient including reason for taking this medication. -- 11:38 08/07/24 AGNES Mansfield R.N. 11:50 08/07/24. Site #2 started via IV in the right hand with a 22g angiocath with aseptic technique and good blood return; 1 attempt. Saline lock flushed with 5 mL saline. -- 11:55 08/07/24 AGNES Mansfield R.N. 11:51 08/07/24. IV NS 0.9 % 500 mL started in bag#1 500 mL at 500 mL/hr via Site# 1. Allergies verified and confirmed 5 rights. Via IV pump. IV patency established. IV site checked: no pain, redness, or swelling. IV 3 of 4 Nurse Narrative flushed thoroughly pre-medication administration. Information reviewed with patient including reason for taking this medication. -- 11:55 08/07/24 AGNES Mansfield R.N. 12:32 08/07/24. Patient returned from CT by stretcher. -- 12:42 08/07/24 AGNES Mansfield R.N. 14:50 08/07/24. Rounding: Pain: assessed pain level (eyes closed, respirations unlabored ). -- 15:05 08/07/24 AGNES Buchanan R.N. 16:19 08/07/24. IV NS 0.9 % 500 mL started in bag#1 500 mL at 500 mL/hr via Site# 1. Allergies verified and confirmed 5 rights. IV patency established. IV site checked: no pain, redness, or swelling. IV flushed thoroughly pre-medication administration. Medication Wastage: 500 mL wasted. -- 16:20 08/07/24 AGNES Buchanan R.N. 16:20 08/07/24. KetorOLAC (Toradol) IVP 30 mg given via Site# 1. Allergies verified and confirmed 5 rights. IV patency established. IV site checked: no pain, redness, or swelling. IV flushed thoroughly pre-medication administration. Information reviewed. Verbalizes understanding. -- 16:20 08/07/24 AGNES Buchanan R.N. 16:08/07/24. Zofran IVP 4 mg given via Site# 1. Allergies verified and confirmed 5 rights. IV patency established. IV site checked: no pain, redness, or swelling. IV flushed thoroughly pre-medication administration. Information reviewed. Verbalizes understanding. -- 16:20 08/07/24 AGNES Buchanan R.N. 16:30 08/07/24. ( Pt moved to ER NS. Eating ice chips. Denies any further needs at this time). -- 16:30 08/07/24 AGNES Buchanan R.N. DISPOSITION / DISCHARGE 13:44 08/07/24. IV NS 0.9 %: Medication Discontinued. bag #1 completed. Total amount infused: 1000 mL. IV patency established. IV site checked: no pain, redness, or swelling. IV flushed thoroughly post-medication administration. -- 22:44 08/07/24 AGNES Buchanan R.N. 17:08/07/24. Vital signs deferred due to patient refused. -- 22:47 08/07/24 AGNES Buchanan R.N. 17:08/07/24. Site #1 removed upon discharge. -- 22:45 08/07/24 AGNES Buchanan R.N. 17:08/07/24. Site #2 removed upon discharge. -- 22:46 08/07/24 AGNES Buchanan R.N. Departure time: 17:28 08/07/2024. -- 17:29 08/07/24 EDT Ana Cristina Buchanan R.N. 17:28 08/07/24. IV NS 0.9 %: Medication Discontinued. bag #2. Total amount infused: 500 mL. IV patency established. IV site checked: no pain, redness, or swelling. IV flushed thoroughly post-medication administration. -- 22:44 08/07/24 EDT Ana Cristina Buchanan R.N. 17:45 08/07/24. Condition at departure: stable. No learning barriers present. Reviewed medication(s). The patient was discharged home and accompanied by family. The patient left ambulatory and via private vehicle. Family member driving. -- 22:45 08/07/24 EDT Ana Cristina Buchanan R.N. (Electronically signed by Ana Cristina Buchanan R.N. 08/07/24 22:47:37 EDT) Generated by [facility] 4 of 4 ED VITALS FLOW SHEET Observed: 10:22 AM Status: F Source: [facility] Vitals Vital Sign Flow Sheet [address] [address] [phone] 08/07/2024 Patient: NORMA ALONSO Sex: Female : 1965 Age: 59y Measurements Wt: 72.6 kg, Ht/Rayf: 61.0 in, BMI: 30.23 Measured Time BP MAP HR RR O2Sat ETCO2 Temp Pain GCS RTS 17:25 08/07/2024 Vital signs deferred due to patient refused. 10:34 08/07/2024 156/98 117 83 16 96% 97.7 F 7 1 of 1 ED SUPER BILL Observed: 08/07/2024 10:22 AM Status: F Source: [address] [address] [id number] 08/07/2024 Patient: NORMA ALONSO Sex: Female : 1965 Age: 59y Facility Professional Category Item Description Code Code Quantity Fee Total Drugs Normal Saline 543057 2 $0.00 $0.00 1000cc (107609) Nurse/E/M EMERGENCY 499776 1 $0.00 $0.00 DEPT VISIT HIGH SEVERITYFUNCJ (86356-94) Nurse/IV/IM/Infusions Hydration 096137 3 $0.00 $0.00 additional hour (97178) Nurse/IV/IM/Infusions IVP additional 494979 1 $0.00 $0.00 push (15713) Nurse/IV/IM/Infusions IVP initial (73015) 269345 1 $0.00 $0.00 Nurse/IV/IM/Infusions IVP same med 254121 1 $0.00 $0.00 (31 min apart) (22188) Grand $0.00 Total Providers 1 of 2 [facility] Jet Mello D.O. Chief Complaint VOMITING and DIARRHEA. Principal Diagnosis Vomiting with nausea. Diarrhea Chronic right upper quadrant and right lower quadrant abdominal pain. Probable subacute noninfectious gastroenteritis. ICD-10 Codes R11.2: Nausea with vomiting, unspecified R19.7: Diarrhea, unspecified R10.11: Right upper quadrant pain R10.31: Right lower quadrant pain 2 of 2 ED ORDER SHEET (CPOE ONLY) Observed: 09/2024 10:22 AM Status: F Source: [facility] Order Sheet Order Sheet [address] [address] [id number] 08/07/2024 Patient: NORMA ALONSO Sex: Female : 1965 Age: 59y MEASUREMENTS: Wt: 72.6 kg, Ht/Rafy: 61.0 in, BMI: 30.23 ALLERGIES: No known drug allergies MEDICATION/IV/DRIP/FLUID ORDERS Order Description Priority Entered Acknowledged Completed Zofran IVP4 mg (NOW x1) 11:10 08/07/2024 11:19 11:38 Jet Mello D.O. 08/07/2024 08/07/2024 Hedy Mansfield, Hedy Mansfield, R.N. R.N. Reason for ordering with alerts: Benefits outweigh risks --11:10 08/07/2024 Jet Mello D.O. IV NS 0.9 %500 mL at 500 mL/hr 11:10 08/07/2024 11:19 11:55 (NOW x1) Jet Mello D.O. 08/07/2024 08/07/2024 Hedy Chavira R.N. R.N. IV NS 0.9 %500 mL at 500 mL/hr 15:50 08/07/2024 16:20 (NOW x1) Jet Mello D.O. 08/07/2024 Ana Cristina Buchanan R.N. Reason for ordering with alerts: Benefits outweigh risks --15:50 08/07/2024 Jet Mello D.O. Zofran IVP4 mg (NOW x1) 15:50 08/07/2024 16:20 Jet Mello D.O. 08/07/2024 Ana Cristina Buchanan, 1 of 3 Order Sheet R.N. Reason for ordering with alerts: Benefits outweigh risks --15:50 08/07/2024 Jet Mello D.O. KetorOLAC (Toradol) IVP30 mg 15:59 08/07/2024 16:20 (NOW x1) Jet Mello D.O. 08/07/2024 Ana Cristina Buchanan, R.NMarco Antonio Reason for ordering with alerts: Benefits outweigh risks --15:59 08/07/2024 Jet Mello D.O. LAB ORDERS Order Description Priority Entered Acknowledged Collected Completed CBC w Diff Stat Stat 11:10 08/07/2024 11:19 08/07/2024 11:55 08/07/2024 Hedy Ibrahim Natalie Yoder, D.O. R.NMarco Antonio R.N. CMP Stat Stat 11:10 08/07/2024 11:19 08/07/2024 11:55 08/07/2024 Hedy Ibrahim Natalie Yoder, D.O. R.N. R.N. Lipase Stat Stat 11:10 08/07/2024 11:19 08/07/2024 11:55 08/07/2024 Hedy Ibrahim Natalie Yoder, D.O. R.NMarco Antonio R.N. Urinalysis Stat Stat 11:10 08/07/2024 11:19 08/07/2024 11:55 08/07/2024 Hedy Ibrahim, Hedy Mansfield D.O. R.N. R.N. Urinalysis Stat Stat 15:50 08/07/2024 16:25 08/07/2024 Ana Cristina Ibrahim R.N. D.O. DIAGNOSTIC STUDY ORDERS 2 of 3 Order Sheet Order Description Priority Entered Acknowledged Completed CT ABD/PEL w Cont Stat Stat 11:10 08/07/2024 11:19 13:14 Jet Mello D.O. 08/07/2024 08/07/2024 Ana Cristina Chavira R.N. R.N. Order Comments: 11:10 08/07/2024: (Right-sided abdominal pain with nausea and vomiting) Jet Mello D.O. Reason for Study: Abdominal Pain STAFF ORDERS Order Description Priority Entered Acknowledged Collected Completed [Electronically signed by Jet Mello D.O. (08/28/2024 23:59 EDT)] [address] KUB (KIDNEY STONE PROTOCOL) Observed: 08/05/2024 1:46 PM Status: F Source: [place] [id number] Patient: NORMA ALONSO Phone#: : [phone] Age: 59 Gender: F Pt. Type: ER Account: [id number] Location: 052 Ordering: SANDIP AG Exam Date: 08/05/2024/11:45 Family Phys: OSVALDO SUE Charge Code: 565984 Physician: [place] Order #: [id number] Dose#: 10.80 mGy PROCEDURE: CT ABDOMEN AND PELVIS WITHOUT CONTRAST COMPARISON: [facility], CT, KUB W/O CON, 02/14/2019, 15:48. INDICATIONS: Flank pain. TECHNIQUE: After obtaining the patient's consent, CT images of the abdomen and pelvis were created without non-ionic intravenous contrast material. All CT scans at this facility use dose modulation, iterative reconstruction, and/or weight based dosing when appropriate to reduce radiation dose to as low as reasonably achievable. IV CONTRAST: No IV contrast used,0ml TOTAL DOSE: 10.8 CTDIvol(mGy) FINDINGS: Evaluation of the solid organs and soft tissues is limited in the absence of intravenous contrast. KIDNEYS: Right renal pelviectasis. No obstructing stone identified. No left nephrolithiasis or hydronephrosis. ADRENALS: Normal. No mass or enlargement. URINARY BLADDER: Normal. No visible focal wall thickening, lesion, or calculus. LIVER: Liver is diffusely decreased in attenuation, consistent with diffuse fatty infiltration of the liver BILIARY: Gallbladder is absent, surgical clips are in the gallbladder fossa PANCREAS: Normal. No lesion, fluid collection, ductal dilatation, or atrophy. SPLEEN: Normal. No enlargement or focal lesion. AORTA/VASCULAR: No aortic aneurysm. There are atherosclerotic calcifications of the aorta and branch vessels RETROPERITONEUM: Limited evaluation for adenopathy in the absence of contrast BOWEL/MESENTERY: No bowel obstruction or dilatation. No significant stool burden. Appendix is unremarkable in size. ABDOMINAL WALL: Small fat containing umbilical hernia PELVIC NODES: Normal. No adenopathy. Continued Report - Page 2 of 2 Patient: NORMA ALONSO Phone#: : [phone] Age: 59 Gender: F Pt. Type: ER Account: [id number] Location: 052 Ordering: SANDIP AG Exam Date: 08/05/2024/11:45 Family Phys: OSVALDO SUE Charge Code: [id number] Physician: [place] Order #: [id number] Dose#: 10.80 mGy PELVIC ORGANS: Uterus is present. Surgical clips in the adnexa consistent with tubal ligation. Fluid attenuation lesions in both ovaries, on the left measuring 3.3 x 3.8 cm and on the right measuring 1.8 x 1.5 cm. BONES: Facet arthropathy in the lower lumbar spine. LUNG BASES: Stable right pleural nodular opacities, likely representing small lymph nodes. No visible pulmonary or pleural disease. OTHER: Negative. CONCLUSION: 1. No nephrolithiasis or obstructing stone. 2. Right renal pelviectasis. 3. Bilateral adnexal cysts, incompletely characterized by CT. Recommend follow- up pelvic ultrasound for further characterization. Dictated by: Serenity Krause MD on 08/05/2024 at 13:33 Approved by: Serenity Krause MD on 08/05/2024 at 13:46 CMP WITH EGFR Collected: 10:27 AM Status: F Source: [facility] TYPE CODE TESTS RESULT OUT OF RANGE REFERENCE UNITS LAB CMP with eGFR(LOINC) CMP with eGFR Result Comment: COMPREHENSIV E METABOLIC PANEL LAB SODIUM(LOINC) SODIUM 144 136 - 145 mmol/l LAB POTASSIUM(LOIN C) POTASSIUM 4.0 3.5 - 5.1 mmol/L LAB CHLORIDE(LOINC ) CHLORIDE 108 High 98 - 107 mmol/L LAB CO2(LOINC) CO2 31.4 21.0 - 32.0 mmol/L LAB GLUCOSE(LOINC) GLUCOSE 120 High 74 - 106 mg/dl LAB BUN(LOINC) BUN 10 7 - 18 mg/dl LAB CREATININE(VERO NC) CREATININE 0.98 0.55 - 1.02 mg/dl LAB AST/SGOT(LOINC ) AST/SGOT 70 High 13 - 39 U/L LAB ALK PHOS(LOINC) ALK PHOS 83 46 - 116 U/L LAB CALCIUM(LOINC) CALCIUM 9.3 8.5 - 10.1 mg/dl LAB TOTAL PROTEIN(LOINC) TOTAL PROTEIN 7.6 6.4 - 8.2 g/dl LAB ALBUMIN(LOINC) ALBUMIN 4.0 3.4 - 5.0 g/dL LAB GLOBULIN(LOINC ) GLOBULIN 3.6 1.5 - 3.8 G/DL LAB A/G RATIO(LOINC) A/G RATIO 1.1 0.9 - 1.6 LAB TOTAL BILI(LOINC) TOTAL BILI 1.6 High 0.2 - 1.0 mg/dl LAB B/C RATIO(LOINC) B/C RATIO 10 0 - 30 ratio LAB ALT/SGPT(LOINC ) ALT/SGPT 94 High 16 - 63 U/L LAB ANION GAP(LOINC) ANION GAP 9 Low 10 - 20 mmol/L LAB AGE(LOINC) AGE 59 years LAB eGFR(LOINC) eGFR 58 Low 60 - 999 ML/MINUT E LAB eGFR(AA)(LOINC ) eGFR(AA) >60 60 - 999 ML/MINUT E Result Comment: ACCORDING TO THE NATIONAL KIDNEY DISEASE EDUCATION PROGRAM(NKDE), A NORMAL eGFR IS A VALUE GREATER THAN OR EQUAL TO 60 ML/MIN/1.73 SQ METERS. CHRONIC KIDNEY DISEASE: <60mL/MIN/1.73 SQ METERS KIDNEY FAILURE: <15mL/MIN/1.73 SQ METERS THIS TEST SHOULD ONLY BE USED FOR PATIENTS 18 YEARS OF AGE AND OLDER. Performed By: #### [id number] ## ## [address] [address] C-REACTIVE PROTEIN Collected: 10:27 AM Status: F Source: [facility] TYPE CODE TESTS RESULT OUT OF RANGE REFERENCE UNITS LAB CRP(LOINC) CRP 0.31 0.00 - 0.90 mg/dl Performed By: #### [id number] ## ## [address] [id number] CBC + DIFF Collected: 10:27 AM Status: F Source: [facility] TYPE CODE TESTS RESULT OUT OF RANGE REFERENCE UNITS LAB CBC + DIFF(LOINC) CBC + DIFF Result Comment: CBC-COMPLETE BLOOD COUNT LAB WBC(LOINC) WBC 7.6 4.5 - 10.8 x 10EE3/UL LAB RBC(LOINC) RBC 4.62 4.10 - 5.30 x 10EE6/UL LAB HEMOGLOBIN(VERO NC) HEMOGLOBIN 15.0 12.0 - 16.0 g/dl LAB HEMATOCRIT(VERO NC) HEMATOCRIT 43.3 34.0 - 46.0 % LAB MCV(LOINC) MCV 94 80 - 99 fl LAB MCH(LOINC) MCH 33 27 - 33 pg LAB MCHC(LOINC) MCHC 35 32 - 36 X10 3 LAB RDW/CV(LOINC) RDW/CV 13.2 12.0 - 15.6 % LAB PLATELET(LOINC ) PLATELET 256 150 - 450 x10EE3/UL LAB MPV(LOINC) MPV 8.3 6.6 - 10.5 fl Result Comment: AUTOMATED DI FFERENTIAL LAB NEUT %(LOINC) NEUT % 54.3 46.0 - 76.0 % LAB LYMPH %(LOINC) LYMPH % 36.7 20.0 - 45.0 % LAB MONOS %(LOINC) MONOS % 5.5 0.0 - 10.0 % LAB EO %(LOINC) EO % 3.4 0.0 - 7.0 % LAB BASO %(LOINC) BASO % 0.2 0.0 - 2.0 % LAB Lymph #(LOINC) Lymph # 2.80 0.80 - 2.80 x10EE 3/UL LAB Neut #(LOINC) Neut # 4.14 1.50 - 7.10 x10EE3 /UL LAB Republic #(LOINC) Republic # 0.42 0.20 - 1.00 x10EE3 /UL LAB EO #(LOINC) EO # 0.26 0.00 - 0.50 x10EE3/U L LAB Baso #(LOINC) Baso # 0.02 0.00 - 0.10 x10EE3 /UL LAB MANUAL DIFF(LOINC) MANUAL DIFF N/A LAB MORPHOLOGY(VERO NC) MORPHOLOGY N/A Performed By: #### [id number] ## ## [place] [id number] LIPASE Collected: 5 10:27 AM Status: F Source: [facility] TYPE CODE TESTS RESULT OUT OF RANGE REFERENCE UNITS LAB LIPASE(INC) LIPASE 23.0 15.0 - 78.0 U/L Result Comment: *PLEASE NOTE THAT RANGES FOR LIPASE HAVE CHANGED OF 04/01/23 DUE TO AN ASSAY UPDATE BY THE CLINICAL COUNSELOR.THE NEW ASSAY RANGE IS 6-250 U/L, WITH A REFERENCE RANGE OF 16-77 U/L. Performed By: #### [id number] ## ## [place] [id number] URINALYSIS Collected: 10:17 AM Status: F Source: [facility] TYPE CODE TESTS RESULT OUT OF RANGE REFERENCE UNITS LAB URINALYSIS(VERO NC) URINALYSIS Result Comment: URINALYSIS LAB Specimen Type(LOINC) Specimen Type R LAB Color(LOINC) Color mal NORMAL: YELLOW LAB Clarity(LOINC) Clarity clear VIDA L: CLEAR LAB ph(LOINC) ph 6 NORMAL: 5.0-8.0 LAB Protein(LOINC) Protein 15 Abnormal VIDA L: NEGATIVE LAB Glucose(LOINC) Glucose NORM VIDA L: NORMAL LAB Ketone(LOINC) Ketone 5 Abnormal NORMAL : NEGATIVE LAB Bilirubin(LOIN C) Bilirubin NEG NORMAL: NEGATIVE LAB Blood(LOINC) Blood NEG NORMAL: NEGATIVE LAB Urobilinog(VERO NC) Urobilinog NORM NORMAL: NORMAL LAB Sp Montgomery(LOINC) Sp Montgomery 1.020 NORMAL: 1.010-1.030 LAB Nitrite(LOINC) Nitrite NEG VIDA L: NEGATIVE LAB Leukocytes(VERO NC) Leukocytes NEG NORMAL: NEGATIVE LAB Microscopic(LO INC) Microscopic NOT INDICATED Performed By: #### [id number] ## ## [facility],[address] [place] [address] ED PHYSICIAN CLINICAL REPORT Observed: 0 08/05/2024 9:53 AM Status: C Source: [facility] Narrative Physician Clinical Narrative [address] [place] [address] [phone] 08/05/2024 09:53:00 Patient: NORMA ALONSO Sex: Female : 1965 Age: 59y Disposition: Discharge to Home Disposition Decision Time: 12:48 08/05/2024 Departure Time: 13:18 08/05/2024 Measurements Wt: 72.6 kg, Ht/Rafy: 61.0 in, BMI: 30.23 Initial Vital Sign Measured Time BP MAP HR RR O2Sat ETCO2 Temp Pain GCS RTS 09:59 08/05/2024 168/73 105 57 18 96% 98.6 F 7 Time Seen: 10:03 08/05/2024. Arrived- By private vehicle. Historian- patient. HISTORY OF PRESENT ILLNESS Chief Complaint: ABDOMINAL PAIN and FLANK PAIN. It is described as cramping and it is described as located in the right flank and the right upper quadrant, right abdomen and right lower quadrant. This started yesterday had some right flank and right-sided pain upon awakening yesterday. Has had it ever since. Some mild nausea with it does not seem to matter activity causing any worsening pain. No position seems to make it worse. The patient has had nausea and vomiting. (Patient states recently she has had some episodes of urinary frequency and urgency. She states that some mornings she feels like she has to urinate and if she does not go right away she might be incontinent. Not noticed any blood in her urine.). Similar symptoms previously. Patient has had similar symptoms occasionally. 1 of 13 Narrative Recent medical care: Not recently seen/assessed. REVIEW OF SYSTEMS CVS: No chest pain. NEUROLOGICAL: No headache. CONSTITUTIONAL: No fever or chills. : The patient has had difficulty with urination and urinary frequency. No pain with urination. GI: No constipation, black stools or hematemesis. RESPIRATORY: No difficulty breathing. THROAT: No sore throat. Status: Not . PAST HISTORY See nurses notes. Thinks she has had previous kidney stones. fatty liver Gastroesophageal Reflux Disease Headache Hyperlipidemia Hypertension Myocardial Infarction Surgeries: Prior abdominal surgery: gall bladder surgery; . Surgeries: Cholecystectomy Tubal Ligation Medications: atorvastatin 20 mg tablet: 1 tablet once a day . gabapentin 300 mg capsule: 1 capsule three times a day . loratadine 10 mg tablet: 1 tablet once a day . omeprazole 40 mg capsule,delayed release: 1 capsule once a day . propranolol ER 160 mg capsule,24 hr,extended release: 1 capsule once a day . trazodone 50 mg tablet: 1 tablet once a day . Allergies: no known drug allergies 2 of 13 Narrative SOCIAL HISTORY Does not use tobacco. No alcohol use. ADDITIONAL NOTES The nursing notes have been reviewed. PHYSICAL EXAM Vital Signs: Have been reviewed. Appearance: Alert. Oriented X3. Patient in mild distress. Distress appears due to pain. Eyes: Pupils equal, round and reactive to light. Eyes normal inspection. ENT: Ears normal. Nose normal. Pharynx normal. (edentulous). Neck: Normal inspection. Neck supple. CVS: Normal heart rate and rhythm. Heart sounds normal. Respiratory: No respiratory distress. Breath sounds normal. Chest nontender. Abdomen: Soft. Mild tenderness diffusely and in the right upper quadrant, right side of the abdomen and right lower quadrant (right flank). No guarding or rebound tenderness. No organomegaly. No mass. No rebound tenderness or guarding. Back: Normal inspection. Skin: Skin warm and dry. Normal skin color. No rash. Normal skin turgor. Extremities: Extremities exhibit normal ROM. Neuro: Oriented X 3. No motor deficit. No sensory deficit. LABS, X-RAYS, AND EKG CT Abdomen - Pelvis: Normal study. The study was interpreted by the radiologist ([facility]). Laboratory Tests: C-REACTIVE PROTEIN Final PAOLA: 08/05/2024 10:27:00 EDT MsgRcvd: 08/05/2024 11:05 EDT Lab Test Result Reference Status Received Comments 3 of 13 Narrative Lab Test Result Reference Status Received Comments 08/05/2024 11:05 CRP 0.31 mg/dl 0.00 - 0.90 Final EDT CBC + DIFF Final PAOLA: 08/05/2024 10:27:00 EDT MsgRcvd: 08/05/2024 10:43 EDT Lab Test Result Reference Status Received Comments 08/05/2024 10:43 CBC-COMPLETE CBC + DIFF Final EDT BLOOD COUNT 08/05/2024 10:43 WBC 7.6 x 10/UL 4.5 - 10.8 Final EDT 08/05/2024 10:43 RBC 4.62 x 10/UL 4.10 - 5.30 Final EDT 08/05/2024 10:43 HEMOGLOBIN 15.0 g/dl 12.0 - 16.0 Final EDT 08/05/2024 10:43 HEMATOCRIT 43.3 % 34.0 - 46.0 Final EDT 08/05/2024 10:43 MCV 94 fl 80 - 99 Final EDT 08/05/2024 10:43 MCH 33 pg 27 - 33 Final EDT 08/05/2024 10:43 MCHC 35 X10 3 32 - 36 Final EDT 08/05/2024 10:43 RDW/CV 13.2 % 12.0 - 15.6 Final EDT 08/05/2024 10:43 PLATELET 256 x10/UL 150 - 450 Final EDT 4 of 13 Narrative Lab Test Result Reference Status Received Comments 08/05/2024 10:43 AUTOMATED MPV 8.3 fl 6.6 - 10.5 Final EDT DIFFERENTIAL 08/05/2024 10:43 NEUT % 54.3 % 46.0 - 76.0 Final EDT 08/05/2024 10:43 LYMPH % 36.7 % 20.0 - 45.0 Final EDT 08/05/2024 10:43 MONOS % 5.5 % 0.0 - 10.0 Final EDT 08/05/2024 10:43 EO % 3.4 % 0.0 - 7.0 Final EDT 08/05/2024 10:43 BASO % 0.2 % 0.0 - 2.0 Final EDT 08/05/2024 10:43 Lymph # 2.80 x10/UL 0.80 - 2.80 Final EDT 08/05/2024 10:43 Neut # 4.14 x10/UL 1.50 - 7.10 Final EDT 08/05/2024 10:43 Republic # 0.42 x10/UL 0.20 - 1.00 Final EDT 08/05/2024 10:43 EO # 0.26 x10/UL 0.00 - 0.50 Final EDT 08/05/2024 10:43 Baso # 0.02 x10/UL 0.00 - 0.10 Final EDT 08/05/2024 10:43 MANUAL DIFF N/A New Order EDT 08/05/2024 10:43 MORPHOLOGY N/A New Order EDT Narrative CMP with eGFR Final PAOLA: 08/05/2024 10:27:00 EDT MsgRcvd: 08/05/2024 11:04 EDT Lab Test Result Reference Status Received Comments COMPREHENSIVE 08/05/2024 CMP with eGFR Final METABOLIC 11:04 EDT PANEL 08/05/2024 SODIUM 144 mmol/l 136 - 145 Final 11:04 EDT 08/05/2024 POTASSIUM 4.0 mmol/L 3.5 - 5.1 Final 11:04 EDT 108 mmol/L 08/05/2024 CHLORIDE Above high 98 - 107 Final 11:04 EDT normal 08/05/2024 CO2 31.4 mmol/L 21.0 - 32.0 Final 11:04 EDT 120 mg/dl 08/05/2024 GLUCOSE Above high 74 - 106 Final 11:04 EDT normal 08/05/2024 BUN 10 mg/dl 7 - 18 Final 11:04 EDT 08/05/2024 CREATININE 0.98 mg/dl 0.55 - 1.02 Final 11:04 EDT 70 U/L 08/05/2024 AST/SGOT Above high 13 - 39 Final 11:04 EDT normal 08/05/2024 ALK PHOS 83 U/L 46 - 116 Final 11:04 EDT 6 of 13 Narrative Lab Test Result Reference Status Received Comments 08/05/2024 CALCIUM 9.3 mg/dl 8.5 - 10.1 Final 11:04 EDT TOTAL 08/05/2024 7.6 g/dl 6.4 - 8.2 Final PROTEIN 11:04 EDT 08/05/2024 ALBUMIN 4.0 g/dL 3.4 - 5.0 Final 11:04 EDT 08/05/2024 GLOBULIN 3.6 G/DL 1.5 - 3.8 Final 11:04 EDT 08/05/2024 A/G RATIO 1.1 0.9 - 1.6 Final 11:04 EDT 1.6 mg/dl 08/05/2024 TOTAL BILI Above high 0.2 - 1.0 Final 11:04 EDT normal 08/05/2024 B/C RATIO 10 ratio 0 - 30 Final 11:04 EDT 94 U/L 08/05/2024 ALT/SGPT Above high 16 - 63 Final 11:04 EDT normal 9 mmol/L 08/05/2024 ANION GAP 10 - 20 Final Below low normal 11:04 EDT 08/05/2024 AGE 59 years Final 11:04 EDT 58 ML/MINUTE 08/05/2024 eGFR 60 - 999 Final Below low normal 11: EDT 7 of 13 Narrative Lab Test Result Reference Status Received Comments ACCORDING TO THE NATIONAL KIDNEY DISEASE EDUCATION PROGRAM(NKDE), A NORMAL eGFR IS A VALUE GREATER THAN OR EQUAL TO 60 ML/MIN/1.73 SQ METERS. 08/05/2024 CHRONIC KIDNEY eGFR(AA) >60 ML/MINUTE 60 - 999 Final 11:04 EDT DISEASE: <60mL/MIN/1.73 SQ METERS KIDNEY FAILURE: <15mL/MIN/1.73 SQ METERS THIS TEST SHOULD ONLY BE USED FOR PATIENTS 18 YEARS OF AGE AND OLDER. LIPASE Final PAOLA: 08/05/2024 10:27:00 EDT MsgRcvd: 08/05/2024 11: EDT Lab Test Result Reference Status Received Comments 8 of 13 Narrative Lab Test Result Reference Status Received Comments *PLEASE NOTE THAT RANGES FOR LIPASE HAVE CHANGED OF 04/01/23 DUE TO AN ASSAY 08/05/2024 LIPASE 23.0 U/L 15.0 - 78.0 Final UPDATE BY THE EDT CLINICAL COUNSELOR.THE NEW ASSAY RANGE IS 6-250 U/L, WITH A REFERENCE RANGE OF 16-77 U/L. URINALYSIS Final PAOLA: 08/05/2024 10:17:00 EDT MsgRcvd: 08/05/2024 10:44 EDT Lab Test Result Reference Status Received Comments 08/05/2024 10:44 URINALYSIS Final URINALYSIS EDT 08/05/2024 10:44 Specimen Type R New Order EDT NORMAL: 08/05/2024 10:44 Color mal Final YELLOW EDT NORMAL: 08/05/2024 10:44 Clarity clear Final CLEAR EDT NORMAL: 08/05/2024 10:44 ph 6 Final 5.0-8.0 EDT 15 NORMAL: 08/05/2024 10:44 Protein Final Abnormal NEGATIVE EDT 9 of 13 Narrative Lab Test Result Reference Status Received Comments NORMAL: 08/05/2024 10:44 Glucose NORM Final NORMAL EDT 5 NORMAL: 08/05/2024 10:44 Ketone Final Abnormal NEGATIVE EDT NORMAL: 08/05/2024 10:44 Bilirubin NEG Final NEGATIVE EDT NORMAL: 08/05/2024 10:44 Blood NEG Final NEGATIVE EDT NORMAL: 08/05/2024 10:44 Urobilinog NORM Final NORMAL EDT NORMAL: 08/05/2024 10:44 Sp [place] 1.020 Final 1.010-1.030 EDT NORMAL: 08/05/2024 10:44 Nitrite NEG Final NEGATIVE EDT NORMAL: 08/05/2024 10:44 Leukocytes NEG Final NEGATIVE EDT 08/05/2024 10:44 Microscopic NOT INDICATED Final EDT Diagnostic Study Tests: CT KUB (KIDNEY STONE PROTOCOL) Final EXAM Date: 08/05/2024 13:46:00 EDT MsgRcvd: 08/05/2024 13:50 EDT [place] [address] Patient: NORMA ALONSO Phone#: : [phone] Age: 59 Gender: F 10 of 13 Narrative Pt. Type: ER Account: [id number] Location: [facility] Ordering: SANDIP AG Exam Date: 08/05/2024/11:45 Family Phys: OSVALDO SUE Charge Code: [id number] Physician: [place] Order #: [id number] Dose#: 10.80 mGy PROCEDURE: CT ABDOMEN AND PELVIS WITHOUT CONTRAST COMPARISON: [facility], CT, KUB W/O CON, 02/14/2019, 15:48. INDICATIONS: Flank pain. TECHNIQUE: After obtaining the patient's consent, CT images of the abdomen and pelvis were created without non-ionic intravenous contrast material. All CT scans at this facility use dose modulation, iterative reconstruction, and/or weight based dosing when appropriate to reduce radiation dose to as low as reasonably achievable. IV CONTRAST: No IV contrast used,0ml TOTAL DOSE: 10.8 CTDIvol(mGy) FINDINGS: Evaluation of the solid organs and soft tissues is limited in the absence of intravenous contrast. KIDNEYS: Right renal pelviectasis. No obstructing stone identified. No left nephrolithiasis or hydronephrosis. ADRENALS: Normal. No mass or enlargement. URINARY BLADDER: Normal. No visible focal wall thickening, lesion, or calculus. LIVER: Liver is diffusely decreased in attenuation, consistent with diffuse fatty infiltration of the liver BILIARY: Gallbladder is absent, surgical clips are in the gallbladder fossa PANCREAS: Normal. No lesion, fluid collection, ductal dilatation, or atrophy. SPLEEN: Normal. No enlargement or focal lesion. AORTA/VASCULAR: No aortic aneurysm. There are atherosclerotic calcifications of the aorta and branch vessels RETROPERITONEUM: Limited evaluation for adenopathy in the absence of contrast BOWEL/MESENTERY: No bowel obstruction or dilatation. No significant stool burden. Appendix is unremarkable in size. ABDOMINAL WALL: Small fat containing umbilical hernia PELVIC NODES: Normal. No adenopathy. Continued Report - Page 2 of 2 Patient: NORMA ALONSO Phone#: : [phone] Age: 59 Gender: F Pt. Type: ER Account: [id number] Location: [facility] Narrative Ordering: SANDIP AG Exam Date: 08/05/2024/11:45 Family Phys: OSVALDO SUE Charge Code: [id number] Physician: [place] Order #: [id number] Dose#: 10.80 mGy PELVIC ORGANS: Uterus is present. Surgical clips in the adnexa consistent with tubal ligation. Fluid attenuation lesions in both ovaries, on the left measuring 3.3 x 3.8 cm and on the right measuring 1.8 x 1.5 cm. BONES: Facet arthropathy in the lower lumbar spine. LUNG BASES: Stable right pleural nodular opacities, likely representing small lymph nodes. No visible pulmonary or pleural disease. OTHER: Negative. CONCLUSION: 1. No nephrolithiasis or obstructing stone. 2. Right renal pelviectasis. 3. Bilateral adnexal cysts, incompletely characterized by CT. Recommend follow- up pelvic ultrasound for further characterization. Dictated by: Serenity Krause MD on 08/05/2024 at 13:33 Approved by: Serenity Krause MD on 08/05/2024 at 13:46 PROGRESS AND PROCEDURES MEDICAL DECISION MAKING: No significant abnormalities were noted on the tests reviewed. MEDICAL COMPLEXITY MODERATE. Pertinent clinical findings include the acute presentation and the character and location of the pain. The exam revealed no vital signs that were significantly abnormal, unequal pulses, rebound tenderness, mass, McBurney's point tenderness or positive Conner's sign. Serious conditions are unlikely to be a cause for the patient's findings. The differential diagnosis includes, but is not limited to, gastroesophageal reflux disease, kidney stone and urinary tract infection. The diagnosis appears to be non-critical in nature. Disposition: Condition: stable. Discharged in stable condition. Discharge decision based on the following: patient's condition is stable; patient's condition is improved; patient's exam is stable; clinical impression is consistent with outpatient treatment. CLINICAL IMPRESSION Acute generalized abdominal pain of undetermined cause. DISCHARGE INSTRUCTIONS 12 of 13 Narrative Warnings: GENERAL WARNINGS: Return or contact your physician immediately if your condition worsens or changes unexpectedly, if not improving as expected, or if other problems arise. Prescription Medications: Bentyl 20mg; protonix 40mg (take instead of omeprazole). Follow-up: Follow up with your doctor in about two days if not better. (Electronically signed by Sandip Ag M.D. 08/05/24 16:58:10 EDT) Addendum Radiology report reviewed. Patient contacted. Patient was told to get a pelvic ultrasound. She is going to follow up with Dr. Sue tomorrow. -- 08/08/24 21:27:21 EDT Cain Dyer D.O. Generated by [facility] 13 of 13 ED NURSES CLINICAL NOTE Observed: 2024 9:53 AM Status: C Source: [facility] Nurse Narrative Nurse Clinical [place] [address] [place] [address] [id number] 08/05/2024 09:53:00 [id number] Sex[facility] Female : 1965 Age: 59y Disposition: Discharge to Home Disposition Decision Time: 12:48 08/05/2024 Departure Time: 13:18 08/05/2024 TRIAGE Arrived by private vehicle. Historian: (patient). Primary physician (bonny). ( reports liver pain states she has known fatty liver). Triage time: 09:54 08/05/2024. Acuity: LEVEL 3. Chief Complaint: ABDOMINAL PAIN. Alert. No acute distress. Onset. (2 days). ( muscle spasms). SEPSIS SCREEN: NEGATIVE. SIRS criteria negative. SEVERE SEPSIS SCREEN NEGATIVE. No signs of organ dysfunction present. -- 10:00 08/05/24 EDT Dot Dunaway R.N. 09:59 08/05/24. BP: 168/73 MAP: 105. HR: 57. RR: 18. O2 saturation: 96% Temperature: 98.6 F. Pain level now 7/10. -- 10:00 08/05/24 EDT Dot Dunaway R.N. Measurements: 09:59 08/05/24 Wt: 72.6 kg, Ht/Rafy: 61.0 in, BMI: 30.23 -- 09:59 08/05/24 EDT Dot Dunaway R.N. Medications: trazodone 50 mg tablet: 1 tablet once a day . -- 09:57 08/05/24 EDT Dot Dunaway R.N. 1 of 4 Nurse Narrative propranolol ER 160 mg capsule,24 hr,extended release: 1 capsule once a day . -- 09:57 08/05/24 EDT Dot Dunaway R.N. omeprazole 40 mg capsule,delayed release: 1 capsule once a day . -- 09:08/05/24 EDT Dot Dunaway R.N. loratadine 10 mg tablet: 1 tablet once a day . -- 09:57 08/05/24 EDT Dot Dunaway R.N. gabapentin 300 mg capsule: 1 capsule three times a day . -- 09:57 08/05/24 EDT Dot Dunaway R.N. atorvastatin 20 mg tablet: 1 tablet once a day . -- 09:57 08/05/24 EDT Dot Dunaway R.N. 09:54 08/05/24. Preferred Pharmacy: ([email or web address]). -- 10:00 08/05/24 EDT Dot Dunaway R.N. Allergies: no known drug allergies -- 09:56 08/05/24 EDT Dot Dunaway R.N. Problems: Myocardial Infarction -- 09:56 08/05/24 EDT Dot Dunaway R.N. Hypertension -- 09:56 08/05/24 EDT Dot Dunaway R.N. Hyperlipidemia -- 09:56 08/05/24 EDT Dot Dunaway R.N. fatty liver -- 09:56 08/05/24 EDT Dot Dunaway R.N. Gastroesophageal Reflux Disease -- 09:56 08/05/24 EDT Dot Dunaway R.N. Headache -- 09:57 08/05/24 EDT Dot Dunaway R.N. ADDITIONAL SURGERIES: Cholecystectomy -- 09:56 08/05/24 CEET Dot Dunaway R.N. Tubal Ligation -- 09:56 08/05/24 EDT Dot Dunaway R.N. History 09:54 08/05/24. SOCIAL HX: Former smoker. No alcohol use or drug use. The patient has not traveled outside the [place] Infectious disease exposure: No infectious disease exposure. ABUSE ASSESSMENT: Abuse denied. No suspicion of abuse. -- 10:00 08/05/24 AGNES Dunaway R.N. 10:03 08/05/24. SELF HARM ASSESSMENT: Self harm assessment was performed. The patient answered no to the question(s) Have you recently felt down, depressed, or hopeless? and Do you have thoughts of harming or 2 of 4 Nurse Narrative killing yourself?. FALL RISK ASSESSMENT: Fall risk assessment completed. No risk factors identified. -- 10:03 08/05/24 AGNSE Dunaway R.N. Interventions 09:54 08/05/24. Identification band on patient. To treatment room. Advanced care plan. Patient does not have advanced directive. -- 10:00 05/4/25 EDT Dot Dunaway R.N. PHYSICAL ASSESSMENT 10:45 08/05/24. GENERAL / NEURO / PSYCH: Alert. Oriented X 4. Appears in no acute distress. ( Pt arrives ambulatory to ER#5 c/o right upper abd pain that started yesterday. PT states she is nauseated but has not vomited. Pt is tender to palpitation. Pt states pain is a 7/10, denies diarrhea. Pt offers she has not had much to eat.). HEENT: Mucous membranes are pink. RESPIRATORY: Respirations not labored. CVS: Normal sinus rhythm noted. Capillary refill less than 2 seconds. GI / : The patient has had nausea. Abdomen soft. Bowel sounds within normal limits. No abdominal distention or diarrhea. No emesis noted. SKIN: Skin is warm and dry. -- 10:50 08/05/24 EDT Michelle Swann R.N. NURSING PROGRESS NOTES 10:08/05/24. ED physician at the patient's bedside (10:08/05/2024). -- 10:08 08/05/24 EDT Michelle Swann R.N. 10:17 08/05/24. Urine collected. -- 10:34 08/05/24 EDT Michelle Swann R.N. 10:28 08/05/24. IV NS 0.9 % 1000 mL started in bag#1 1000 mL at 999 mL/hr via Site# 1. Allergies verified and confirmed 5 rights. Via IV pump. IV patency established. IV site checked: no pain, redness, or swelling. IV flushed thoroughly pre-medication administration. Information reviewed with patient. Verbalizes understanding. -- 10:29 08/05/24 EDT Michelle Swann R.N. 10:29 08/05/24. Zofran IVP 4 mg given via Site# 1. Allergies verified and confirmed 5 rights. IV patency established. IV site checked: no pain, redness, or swelling. IV flushed thoroughly pre-medication administration. Information reviewed with patient. Verbalizes understanding. -- 10:08/05/24 EDT Michelle Swann R.N. 10:30 08/05/24. KetorOLAC (Toradol) IVP 15 mg given via Site# 1. Allergies verified and confirmed 5 rights. IV patency established. IV site checked: no pain, redness, or swelling. IV flushed thoroughly pre-medication administration. Information reviewed. Verbalizes understanding. Medication Wastage: 15 mg wasted. -- 10:30 08/05/24 EDT Michelle Swann R.N. 3 of 4 Nurse Narrative 11:34 08/05/24. IV NS 0.9 %: Medication Discontinued. bag #1 infused. Total amount infused: 1000 mL. IV patency established. IV site checked: no pain, redness, or swelling. IV flushed thoroughly post-medication administration. -- 11:34 08/05/24 EDT Ria Wade R.N. 11:41 08/05/24. Patient transported to radiology and CT by stretcher with manufacturing maintenance technician. -- 12:08/05/24 CEET iMchelle Swann R.N. 12:07 08/05/24. Rounding: Pain: assessed pain level (7-8/10). -- 12:08/05/24 AGNES Swann R.N. 12:11 08/05/24. HYDROmorphone (Dilaudid) IVP 0.5 mg given via Site# 1. Allergies verified and confirmed 5 rights. IV patency established. IV site checked: no pain, redness, or swelling. IV flushed thoroughly pre-medication administration. Information reviewed with patient. Verbalizes understanding. -- 12:11 08/05/24 AGNES Swann R.N. 12:14 08/05/24. The patient is resting quietly. -- 12:14 08/05/24 AGNES Swann R.N. 13:18 08/05/24. BP: 152/85 MAP: 107. HR: 52. RR: 16. O2 saturation: 96% Pain level now 0/10. -- 13:21 08/05/24 AGNES Swann R.N. DISPOSITION / DISCHARGE 10:27 08/05/24. Site #1 started via IV in the right hand with a 20g angiocath with aseptic technique and good blood return; 2 attempts. Blood drawn: rainbow set tube(s). Saline lock flushed with 5 mL saline. -- 10:29 08/05/24 EDT Michelle Swann R.N. Departure time: 13:18 08/05/2024. Condition at departure: improved. Discharge instructions provided and reviewed with the patient. Reviewed medication(s). Prescription(s) sent electronically to pharmacy. Patient verbalized understanding. Written instructions provided in Slovenian. The patient was discharged by the physician. The patient was discharged home and accompanied by spouse. The patient left ambulatory and via private vehicle. Spouse driving. -- 13:22 08/05/24 EDT Michelle Swann R.N. 13:18 08/05/24. Site #1 removed upon discharge. Catheter intact. Pressure dressing applied. -- 13:08/05/24 EDT Michelle Swann R.N. (Electronically signed by Michelle Swann R.N. 08/05/24 13:23:56 EDT) Generated by [facility] 4 of 4 ED VITALS FLOW SHEET Observed: 9:53 AM Status: C Source: [facility] Vitals Vital Sign Flow Sheet [address] [address] [id number] 08/05/2024 Patient: NORMA ALONSO Sex: Female : 1965 Age: 59y Measurements Wt: 72.6 kg, Ht/Rafy: 61.0 in, BMI: 30.23 Measured Time BP MAP HR RR O2Sat ETCO2 Temp Pain GCS RTS 13:18 08/05/2024 152/85 93 53 13:18 08/05/2024 152/85 107 52 16 96% 0 09:59 08/05/2024 168/73 105 57 18 96% 98.6 F 7 1 of 1 ED MED ADMINISTRATION DETAIL Observed: 0 08/05/2024 9:53 AM Status: C Source: [facility] Shoe Repairer Medication Administration Record [address] [address] [id number] 08/05/2024 Patient: NORMA ALONSO Sex: Female : 1965 Age: 59y MEASUREMENTS: Wt: 72.6 kg, Ht/Rafy: 61.0 in, BMI: 30.23 ALLERGIES: No known drug allergies Medication Ordered Medication Administration Date/Time IV NS 0.9 % 1000 10:08/05 IV NS 0.9 % 1000 mL started in bag#1 1000 mL at Started mL at 999 mL/hr 999 mL/hr via Site# 1. Allergies verified and confirmed 5 rights. Via 10:08/05/2024 (NOW x1) IV pump. IV patency established. IV site checked: no pain, redness, Michelle Swann R.N. or swelling. IV flushed thoroughly pre-medication administration. Stopped Information reviewed with patient. Verbalizes understanding. - 11:08/05/2024 10: Cecilia Banks R.N. Scanned 11:08/05 Medication Discontinued: bag #1 infused. Total amount infused: 1000 mL. IV patency established. IV site checked: no pain, redness, or swelling. IV flushed thoroughly post-medication administration. - 11: Ria Wade R.N. Zofran IVP 4 mg 10:08/05 Zofran IVP 4 mg given via Site# 1. Allergies verified Given (NOW x1) and confirmed 5 rights. IV patency established. IV site checked: no 10:08/05/2024 pain, redness, or swelling. IV flushed thoroughly pre-medication Michelle Swann R.N. administration. Information reviewed with patient. Verbalizes Scanned understanding. - 10: Michelle Swann R.N. 1 of 2 Shoe Repairer Medication Ordered Medication Administration Date/Time KetorOLAC 10:08/05 KetorOLAC (Toradol) IVP 15 mg given via Site# 1. Given (Toradol) IVP 15 mg Allergies verified and confirmed 5 rights. IV patency established. IV 10:08/05/2024 (NOW x1) site checked: no pain, redness, or swelling. IV flushed thoroughly Michelle Swann R.N. pre-medication administration. Information reviewed. Verbalizes Scanned understanding. Medication Wastage: 15 mg wasted. - 10:30 Michelle Swann R.N. HYDROmorphone 12:08/05 HYDROmorphone (Dilaudid) IVP 0.5 mg given via Given (Dilaudid) IVP 0.5 Site# 1. Allergies verified and confirmed 5 rights. IV patency 12:11 08/05/2024 mg (NOW x1, HIGH established. IV site checked: no pain, redness, or swelling. IV Michelle Swann R.N. ALERT flushed thoroughly pre-medication administration. Information Scanned MEDICATION) reviewed with patient. Verbalizes understanding. - 12:11 Michelle Swann R.N. 2 of 2 ED ORDER SHEET ([facility] ONLY) Observed: 07/2024 9:53 AM Status: C Source: [facility] Order Sheet Order Sheet [facility] [address] [place] [address] [id number] 08/05/2024 Patient: NORMA ALONSO Sex: Female : 1965 Age: 59y MEASUREMENTS: Wt: 72.6 kg, Ht/Rafy: 61.0 in, BMI: 30.23 ALLERGIES: No known drug allergies MEDICATION/IV/DRIP/FLUID ORDERS Order Description Priority Entered Acknowledged Completed IV NS 0.9 %1000 mL at 999 10:13 08/05/2024 10:29 mL/hr (NOW x1) Sandip Ag M.D. 08/05/2024 Michelle Swann R.N. Zofran IVP4 mg (NOW x1) 10:13 08/05/2024 10:29 Sandip Ag M.D. 08/05/2024 Michelle Swann R.N. Reason for ordering with alerts: Clinical consideration given --10:13 08/05/2024 Sandip Ag M.D. KetorOLAC (Toradol) IVP15 mg 10:13 08/05/2024 10:30 (NOW x1) Sandip Ag M.D. 08/05/2024 Michelle Swann R.N. Reason for ordering with alerts: Clinical consideration given --10:13 08/05/2024 Sandip Ag M.D. HYDROmorphone (Dilaudid) 12:07 08/05/2024 12:09 12:11 IVP0.5 mg (NOW x1, HIGH Sandip Ag M.D. 08/05/2024 08/05/2024 ALERT MEDICATION) Michelle Banks, 1 of 3 Order Sheet R.NMarco Antonio RArian Reason for ordering with alerts: Clinical consideration given --12:07 08/05/2024 Sandip Ag M.D. LAB ORDERS Order Description Priority Entered Acknowledged Collected Completed CBC w Diff Stat Stat 10:13 08/05/2024 10:45 08/05/2024 10:45 08/05/2024 Clarence Erickson Shauna Ewing, R.N. R.N. CMP Stat Stat 10:13 08/05/2024 10:45 08/05/2024 10:45 08/05/2024 Clarence Erickson Shauna Ewing, R.N. R.N. Lipase Stat Stat 10:13 08/05/2024 10:45 08/05/2024 10:45 08/05/2024 Clarence Erickson Shauna Ewing, R.N. RArian Urinalysis Stat Stat 10:13 08/05/2024 10:45 08/05/2024 10:46 08/05/2024 Clarence Erickson Shauna Ewing, R.N. RMarco AntonioNMarco Antonio CRP Stat Stat 10:13 08/05/2024 10:45 08/05/2024 10:45 08/05/2024 Clarence Erickson Shauna Ewing, R.N. R.NMarco Antonio DIAGNOSTIC STUDY ORDERS Order Description Priority Entered Acknowledged Completed CT KUB (Kidney stone) Stat Stat 11:39 08/05/2024 12:02 12:02 Sandip Ag M.D. 08/05/2024 08/05/2024 Michelle Banks R.N. R.NMarco Antonio Order Comments: 11:38 08/05/2024: Status: Not . Sandip Ag M.D. Reason for Study: Flank Pain STAFF ORDERS 2 of 3 Order Sheet Order Description Priority Entered Acknowledged Collected Completed [Electronically signed by Sandip Ag M.D. (08/05/2024 16:58 EDT)] 3 of 3 ED VISIT SUMMARY Observed: 08/05/2024 9:53 AM Status: C Source: [facility] Visit Overview Visit Overview [facility] [address] [place] [address] [phone] 08/05/2024 Patient: NORMA ALONSO Sex: Female : 1965 Age: 59y 08/08/2024 09:27 PM EDT ED Arrival:09:53 08/05/2024 EDT Status:not Recent Travel: Language:eng Adv Directive: Isolation Status: Ethnicity:N Fall Risk: Infectious Disease Exposure: Measurements:5'1 / 154.9 Self-Harm Status: Sepsis Screen: cm 160.0 lb / 72.6 kg Chief Complaint: ALLERGIES No Known Drug Allergies HOME MEDICATIONS atorvastatin 20 mg tablet: 1 tablet once a day . gabapentin 300 mg capsule: 1 capsule three times a day . loratadine 10 mg tablet: 1 tablet once a day . omeprazole 40 mg capsule,delayed release: 1 capsule once a day . propranolol ER 160 mg capsule,24 hr,extended release: 1 capsule once a day . trazodone 50 mg tablet: 1 tablet once a day . 3 Visit Overview PAST MEDICAL HISTORY / PROBLEMS fatty liver Gastroesophageal Reflux Disease Headache Hyperlipidemia Hypertension Myocardial Infarction See nurses notes PAST SURGICAL HISTORY Cholecystectomy Prior abdominal surgery: gall bladder surgery; Tubal Ligation SOCIAL HISTORY ED COURSE MEDICATIONS GIVEN IN EMERGENCY DEPARTMENT 10:28 08/05/24 IV NS 0.9 % 1000 mL 999 mL/hr 10:29 08/05/24 Zofran IVP 4 mg 10:30 08/05/24 KetorOLAC (Toradol) IVP 15 mg 12:11 08/05/24 HYDROmorphone (Dilaudid) IVP 0.5 mg IV SITE INFORMATION INTAKE OUTPUT REASSESMENT (most recent) VITAL SIGNS First Vitals Last Vitals Temp 09:59 08/05/24 98.6 F Temp 13:18 08/05/24 BP 09:59 08/05/24 168/73 BP 13:18 08/05/24 152/85 HR 09:59 08/05/24 57 HR 13:18 08/05/24 53 2 of 3 Visit Overview First Vitals Last Vitals RR 09:59 08/05/24 18 RR 13:18 05/04/25 O2 Sat 09:59 08/05/24 96% O2 Sat 13:18 08/05/24 Pain 09:59 08/05/24 7 Pain 13:18 08/05/24 ETCO2 09:59 08/05/24 ETCO2 13:18 08/05/24 GCS 09:59 08/05/24 GCS 13:18 08/05/24 RTS 09:59 08/05/24 RTS 13:18 08/05/24 PROCEDURES NURSING INTERVENTIONS LABS / STUDIES LABS / STUDIES ORDERED CBC w Diff CMP CRP CT KUB (Kidney stone) Lipase Urinalysis CLINICAL IMPRESSION ACUTE GENERALIZED ABDOMINAL PAIN OF UNDETERMINED CAUSE 3 of 3 ED SUPER BILL Observed: 08/05/2024 9:53 AM Status: C Source: [address] [place] [address] [id number] 08/05/2024 Patient: NORMA ALONSO Sex: Female : 1965 Age: 59y Facility Professional Category Item Description Code Code Quantity Fee Total Drugs Normal Saline 017810 1 $0.00 $0.00 1000cc (800540) Nurse/E/M EMERGENCY 011685 1 $0.00 $0.00 DEPT VISIT HIGH SEVERITYFUNCJ (53060-53) Nurse/IV/IM/Infusions Hydration 136693 1 $0.00 $0.00 additional hour (54640) Nurse/IV/IM/Infusions IVP additional 338460 2 $0.00 $0.00 push (14005) Nurse/IV/IM/Infusions IVP initial (90492) 511232 1 $0.00 $0.00 Grand $0.00 Total Providers Sandip Ag M.D. Chief Complaint 1 of 2 Superbill ABDOMINAL PAIN and FLANK PAIN. Principal Diagnosis Acute generalized abdominal pain of undetermined cause. ICD-10 Codes R10.84: Generalized abdominal pain 2 of 2 PROGRESS Observed: 07/09/2024 1:13 PM Status: COMPLETED Source: [facility] ID: [id number] Author: DULCE MARIA MARTINEZ MA Service: ? Author Type: Gravity Manager Type: Progress Notes Filed: 07/09/2024 13:13 Note Text: Scan on 06/21/2024 2:23 PM by Tevin Mensah PA-C: Chemistry Scan on 06/22/2024 2:26 PM by Tevin Mensah PA-C: Chemistry Dulce Maria Martinez MA PROGRESS Observed: 06/22/2024 6:51 AM Status: COMPLETED Source: [facility] ID: [id number] Author: BREANN DAVIS LPN Service: ? Author Type: LICENSED NURSE Type: Progress Notes Filed: 06/22/2024 06:51 Note Text: Scan on 06/21/2024 11:32 AM by Tevin Mensah PA-C: X-ray TROPONIN Collected: 12:06 PM Status: F Source: [facility] TYPE CODE TESTS RESULT OUT OF RANGE REFERENCE UNITS LAB HS TROPONIN(LOINC) HS TROPONIN 5.0 0.0 - 51.4 pg/mL Performed By: #### [id number] ## ## [facility],[address] [place] [address] CHEST 1 VIEW Observed: 06/21/2024 11:25 AM Status: F Source: [place] [id number] Patient: NORMA ALONSO Phone#: : [phone] Age: 59 Gender: F Pt. Type: ER Account: [id number] Location: [facility] Ordering: RANDY QUILES Exam Date: 06/21/2024/11:08 Family Phys: OSVALDO SUE Charge Code: 554201 Physician: [place] Order #: [id number] Dose#: PROCEDURE: X-RAY CHEST 1 VIEW COMPARISON: [facility], CHEST 2 VIEWS, 06/01/2023, 11:26. INDICATIONS: Chest pain. FINDINGS: LUNGS: Normal. No significant pulmonary parenchymal abnormalities. VASCULATURE: Normal. Unremarkable pulmonary vasculature. CARDIAC: Cardiac silhouette appears mildly enlarged however this may be due to AP technique. MEDIASTINUM: Normal. No visible mass or adenopathy. PLEURA: Normal. No effusion or pleural thickening. BONES: Normal. No fracture or visible bony lesion. OTHER: Monitoring leads project across the thorax CONCLUSION: 1. No acute pulmonary parenchymal abnormality. 2. Questionable enlarged cardiac silhouette versus AP technique. If clinically indicated consider PA chest radiograph for more accurate evaluation of cardiac silhouette size. Dictated by: Serenity Krause MD on 06/21/2024 at 11:21 Approved by: Serenity Krause MD on 06/21/2024 at 11:25 INFLUENZA VIRUS RAPID A/B Observed: 06/03 11:08 AM Status: F Source: [facility] INFLUENZA A NEGATIVE INFLUENZA B NEGATIVE INTERNAL NEG QC PASS INTERNAL POS QC PASS EXTERNAL QC DONE? YES SEND TO IC? TEJA NEGATIVE TEST RESULT DOES NOT EXCLUDE INFECTION WITH INFLUENZA A OR B. THEREFORE, THE RESULTS OBTAINED FROM THIS FLU TEST SHOULD BE USED IN CONJUCTION WITH CLINICAL FINDINGS TO MAKE AN ACCURATE DIAGNOSIS. A POSITIVE RESULT DOES NOT RULE OUT CO-INFECTIONS WITH OTHER PATHOGENS OR IDENTIFY ANY SPECIFIC INFLUENZA A VIRUS SUBTYPE.CO-INFECTION WITH INFLUENZA A AND B IS RARE. IT IS RECOMMENDED THAT DUAL POSITIVE RESULTS BE CONFIRMED BY VIRAL CULTURE OR AN FDA-CLEARED INFLUENZA A AND B MOLECULAR ASSAY. INDIVIDUALS WHO HAVE RECEIVED NASALLY ADMINISTERED INFLUENZA A VACCINE MAY TEST POSITIVE IN COMMERCIALLY AVAILABLE INFLUENZA RAPID DIAGNOSTIC TESTS FOR UP TO THREE DAYS. RESULT CRITICAL? NO Performed By: #### [id number] ## ## [facility],[address] [place] [address] CBC + DIFF Collected: 11:08 AM Status: F Source: [facility] TYPE CODE TESTS RESULT OUT OF RANGE REFERENCE UNITS LAB CBC + DIFF(LOINC) CBC + DIFF Result Comment: CBC-COMPLETE BLOOD COUNT LAB WBC(LOINC) WBC 11.2 High 4.5 - 10.8 x 10EE3/UL LAB RBC(LOINC) RBC 5.34 High 4.10 - 5.30 x 10EE6/UL LAB HEMOGLOBIN(VERO NC) HEMOGLOBIN 16.6 High 12.0 - 16.0 g/dl LAB HEMATOCRIT(VERO NC) HEMATOCRIT 50.0 High 34.0 - 46.0 % LAB MCV(LOINC) MCV 94 80 - 99 fl LAB MCH(LOINC) MCH 31 27 - 33 pg LAB MCHC(LOINC) MCHC 33 32 - 36 X10 3 LAB RDW/CV(LOINC) RDW/CV 13.1 12.0 - 15.6 % LAB PLATELET(LOINC ) PLATELET 349 150 - 450 x10EE3/UL LAB MPV(LOINC) MPV 8.0 6.6 - 10.5 fl Result Comment: AUTOMATED DI FFERENTIAL LAB NEUT %(LOINC) NEUT % 58.4 46.0 - 76.0 % LAB LYMPH %(LOINC) LYMPH % 34.7 20.0 - 45.0 % LAB MONOS %(LOINC) MONOS % 4.4 0.0 - 10.0 % LAB EO %(LOINC) EO % 2.2 0.0 - 7.0 % LAB BASO %(LOINC) BASO % 0.3 0.0 - 2.0 % LAB Lymph #(LOINC) Lymph # 3.89 High 0.80 - 2.80 x10EE 3/UL LAB Neut #(LOINC) Neut # 6.55 1.50 - 7.10 x10EE3 /UL LAB Republic #(LOINC) Republic # 0.49 0.20 - 1.00 x10EE3 /UL LAB EO #(LOINC) EO # 0.25 0.00 - 0.50 x10EE3/U L LAB Baso #(LOINC) Baso # 0.03 0.00 - 0.10 x10EE3 /UL LAB MANUAL DIFF(LOINC) MANUAL DIFF N/A LAB MORPHOLOGY(VERO NC) MORPHOLOGY N/A Performed By: #### [id number] ## ## [facility],[address] [place] [address] CORONAVIRUS (SARS) ANTIGEN TEST Collect ed: 06/21/2024 11:08 AM Status: F Source: [facility] TYPE CODE TESTS RESULT OUT OF RANGE REFERENCE UNITS LAB SARS ANTIGEN(LOINC) SARS ANTIGEN NEGATIVE NORMAL: NEGATIVE LAB INTERNAL CONTROL(LOINC) INTERNAL CONTROL PASS LAB EXTERNAL QC DONE?(LOINC) EXTERNAL QC DONE? YES LAB SEND TO IC?(LOINC) SEND TO IC? NO Result Comment: SARS-CoV-2 THIS TEST IS BEING USED UNDER THE FDA EUA PROCEDURE. THIS ASSAY HAS BEEN VALIDATED AT [facility] FOR USE WITH NASAL AND NASOPHARYNGEAL SWAB SPECIMENS. INTERPRETIVE DATA TEST RESULTS SHOULD ALWAYS BE CONSIDERED IN THE CONTEXT OF CLINICAL OBSERVATIONS AND EPIDEMIOLOGICAL DATA IN MAKING FINAL DIAGNOSIS AND PATIENT MANAGEMENT DECISIONS. PATIENT MANAGEMENT SHOULD FOLLOW CURRENT CDC GUIDELINES. THE AUREA SARS ANTIGEN JADEN DOES NOT DIFFERENTIATE BETWEEN SARS-CoV & SARS-CoV-2. A POSITIVE TEST RESULT INDICATES THE PRESENCE OF SARS-CoV-2 NUCLEOCAPSID PROTEIN ANTIGEN, AND THE PATIENT IS INFECTED WITH THE VIRUS AND PRESUMED TO BE CONTAGIOUS. A NEGATIVE TEST RESULT FOR THIS TEST MEANS THAT SARS-CoV-2 NUCLEOCAPSID PROTEIN ANTIGEN WAS NOT PRESENT IN THE SPECIMEN ABOVE THE LIMIT OF DETECTION. HOWEVER, A NEGATIVE RESULT DOES NOT RULE OUT COVID-19 AND SHOULD NOT BE USED THE SOLE BASIS FOR TREATMENT OR PATIENT MANAGEMENT DECISIONS. A NEGATIVE RESULT DOES NOT EXCLUDE THE POSSIBILITY OF COVID-19. NEGATIVE RESULTS, FROM PATIENTS WITH SYMPTOM ONSET BEYOND FIVE DAYS, SHOULD BE TREATED PRESUMPTIVE AND CONFIRMATION WITH A MOLECULAR ASSAY, IF NECESSARY, FOR PATIENT MANAGEMENT, MAY BE PERFORMED. WHEN DIAGNOSTIC TESTING IS NEGATIVE, THE POSSIBLILTY OF A FALSE NEGATIVE RESULT SHOULD BE CONSIDERED IN THE CONTEXT OF A PATIENT'S RECENT EXPOSURES AND THE PRESENCE OF CLINICAL SIGNS AND SYMPTOMS CONSISTENT WITH COVID-19. THE POSSIBILITY OF A FALSE NEGATIVE RESULT SHOULD ESPECIALLY BE CONSIDERED IF THE PATIENT'S RECENT EXPOSURES OR CLINICAL PRESENTATION INDICATE THAT COVID-19 IS LIKELY, AND DIAGNOSTIC TESTS FOR OTHER CAUSES OF ILLNESS (e.g., OTHER RESPIRATORY ILLNESS) ARE NEGATIVE. IF COVID-19 IS STILL SUSPECTED BASED ON EXPOSURE HISTORY TOGETHER WITH OTHER CLINICAL FINDINGS, RE-TESTING SHOULD BE CONSIDERED BY HEALTHCARE PROVIDERS IN CONSULTATION WITH PUBLIC HEALTH AUTHORITIES. Performed By: #### [id number] ## ## [place] [id number] TROPONIN Collected: 5 11:08 AM Status: F Source: [facility] TYPE CODE TESTS RESULT OUT OF RANGE REFERENCE UNITS LAB HS TROPONIN(LOINC) HS TROPONIN 4.7 0.0 - 51.4 pg/mL Performed By: #### [id number] ## ## [place] [id number] CMP WITH EGFR Collected: 11:08 AM Status: F Source: [facility] TYPE CODE TESTS RESULT OUT OF RANGE REFERENCE UNITS LAB CMP with eGFR(LOINC) CMP with eGFR Result Comment: COMPREHENSIV E METABOLIC PANEL LAB SODIUM(LOINC) SODIUM 144 136 - 145 mmol/l LAB POTASSIUM(LOIN C) POTASSIUM 3.6 3.5 - 5.1 mmol/L LAB CHLORIDE(LOINC ) CHLORIDE 104 98 - 107 mmol/L LAB CO2(LOINC) CO2 30.4 21.0 - 32.0 mmol/L LAB GLUCOSE(LOINC) GLUCOSE 123 High 74 - 106 mg/dl LAB BUN(LOINC) BUN 11 7 - 18 mg/dl LAB CREATININE(VERO NC) CREATININE 0.87 0.55 - 1.02 mg/dl LAB AST/SGOT(LOINC ) AST/SGOT 101 High 13 - 39 U/L LAB ALK PHOS(LOINC) ALK PHOS 99 46 - 116 U/L LAB CALCIUM(LOINC) CALCIUM 9.2 8.5 - 10.1 mg/dl LAB TOTAL PROTEIN(LOINC) TOTAL PROTEIN 8.4 High 6.4 - 8.2 g/dl LAB ALBUMIN(LOINC) ALBUMIN 4.4 3.4 - 5.0 g/dL LAB GLOBULIN(LOINC ) GLOBULIN 4.0 High 1.5 - 3.8 G/DL LAB A/G RATIO(LOINC) A/G RATIO 1.1 0.9 - 1.6 LAB TOTAL BILI(LOINC) TOTAL BILI 1.5 High 0.2 - 1.0 mg/dl LAB B/C RATIO(LOINC) B/C RATIO 13 0 - 30 ratio LAB ALT/SGPT(LOINC ) ALT/SGPT 120 High 16 - 63 U/L LAB ANION GAP(LOINC) ANION GAP 13 10 - 20 mmol/L LAB AGE(LOINC) AGE 59 years LAB eGFR(LOINC) eGFR >60 60 - 999 ML/MINUT E LAB eGFR(AA)(LOINC ) eGFR(AA) >60 60 - 999 ML/MINUT E Result Comment: ACCORDING TO THE NATIONAL KIDNEY DISEASE EDUCATION PROGRAM(NKDE), A NORMAL eGFR IS A VALUE GREATER THAN OR EQUAL TO 60 ML/MIN/1.73 SQ METERS. CHRONIC KIDNEY DISEASE: <60mL/MIN/1.73 SQ METERS KIDNEY FAILURE: <15mL/MIN/1.73 SQ METERS THIS TEST SHOULD ONLY BE USED FOR PATIENTS 18 YEARS OF AGE AND OLDER. Performed By: #### [id number] ## ## [facility],[address] [place] [address] VITALS FLOW SHEET Observed: 10:57 AM Status: F Source: [facility] Vitals Vital Sign Flow Sheet [address] [address] [phone] 06/21/2024 Patient: NORMA ALONSO Sex: Female : 1965 Age: 59y Measurements Wt: 72.6 kg, Ht/Rafy: 62.0 in, BMI: 29.26 Measured Time BP MAP HR RR O2Sat ETCO2 Temp Pain GCS RTS 13:20 06/21/2024 18 12:50 06/21/2024 59 96% 12:46 06/21/2024 165/88 105 56 12:45 06/21/2024 62 96% 12:40 06/21/2024 58 96% 12:35 06/21/2024 59 95% 12:31 06/21/2024 155/80 105 56 12:30 06/21/2024 58 96% 12:25 06/21/2024 57 95% 12:20 06/21/2024 56 95% 12:16 06/21/2024 140/75 110 56 12:15 06/21/2024 60 94% 12:10 06/21/2024 60 94% 12:05 06/21/2024 61 95% 12:01 06/21/2024 151/95 107 61 1 of 2 Vitals Measured Time BP MAP HR RR O2Sat ETCO2 Temp Pain GCS RTS 12:00 06/21/2024 60 95% 11:55 06/21/2024 59 96% 11:02 06/21/2024 167/80 109 65 18 95% 97.4 F 8 2 of 2 ED PHYSICIAN CLINICAL REPORT Observed: 0 06/21/2024 10:57 AM Status: F Source: [facility] Narrative Physician Clinical Narrative [address] [address] [phone] 06/21/2024 Patient: NORMA ALONSO Sex: Female : 1965 Age: 59y Primary Insurance: [facility] Policy Number: [id number] Subscriber: Other Disposition: Discharge Disposition Decision Time: 12:53 06/21/2024 Measurements Wt: 72.6 kg, Ht/Rafy: 62.0 in, BMI: 29.26 Initial Vital Sign Measured Time BP MAP HR RR O2Sat ETCO2 Temp Pain GCS RTS 11:02 06/21/2024 167/80 109 65 18 95% 97.4 F 8 Time Seen: 10:57 06/21/2024. Arrived- By private vehicle. Historian- patient. HISTORY OF PRESENT ILLNESS Chief Complaint: CHEST PAIN. It is described as located in the left chest area. This started 3 days ago and is still present. No nausea or vomiting. The patient has had difficulty breathing. (Sharp left-sided chest pain. Constant over the past 3 days. Worse with coughing. Denies any nausea, vomiting, diaphoresis. Slight shortness of breath. Denies any fall or trauma.). REVIEW OF SYSTEMS RESPIRATORY: The patient has had a cough. CONSTITUTIONAL: No fever or chills. PAST HISTORY 1 of 14 Narrative Hypertension. Hyperlipidemia. Hyperlipidemia Hypertension Myocardial Infarction Surgeries: Cholecystectomy Tubal Ligation Medications: atorvastatin 20 mg tablet: 1 tablet once a day. gabapentin 300 mg capsule: 1 capsule three times a day. loratadine 10 mg tablet: 1 tablet once a day. omeprazole 40 mg capsule,delayed release: 1 capsule once a day. propranolol ER 160 mg capsule,24 hr,extended release: 1 capsule once a day. trazodone 50 mg tablet: 1 tablet once a day. Allergies: no known drug allergies SOCIAL HISTORY Former smoker. No alcohol use or drug use. ADDITIONAL NOTES The nursing notes have been reviewed. PHYSICAL EXAM Vital Signs: Have been reviewed. Appearance: Alert. No acute distress. ENT: Pharynx normal. Neck: Normal inspection. Neck supple. CVS: Normal heart rate and rhythm. Heart sounds normal. Pulses normal. Respiratory: No respiratory distress. Breath sounds normal. Abdomen: Soft and nontender. 2 of 14 Narrative Skin: Skin warm and dry. Normal skin color. Extremities: No lower extremity edema. LABS, X-RAYS, AND EKG 12-LEAD EKG: EKG time: 10:59 06/21/2024. Normal sinus rhythm. Rate: 61. Normal P waves. Normal QRS complex. Non-specific ST segment / T wave abnormalities. The study has been interpreted contemporaneously by me. Interpretation time: 11:02 06/21/2024. Chest X-ray: No acute disease. The X-rays were independently viewed by me and interpreted by the radiologist. Laboratory Tests: CBC + DIFF Final PAOLA: 06/21/2024 11:08:00 EDT MsgRcvd: 06/21/2024 11:22 EDT Lab Test Result Reference Status Received Comments 06/21/2024 11:22 CBC-COMPLETE CBC + DIFF Final EDT BLOOD COUNT 11.2 x 10/UL 06/21/2024 11:22 WBC 4.5 - 10.8 Final Above high normal EDT 5.34 x 10/UL 06/21/2024 11:22 RBC 4.10 - 5.30 Final Above high normal EDT 16.6 g/dl 06/21/2024 11:22 HEMOGLOBIN 12.0 - 16.0 Final Above high normal EDT 50.0 % 06/21/2024 11:22 HEMATOCRIT 34.0 - 46.0 Final Above high normal EDT 06/21/2024 11:22 MCV 94 fl 80 - 99 Final EDT 06/21/2024 11:22 MCH 31 pg 27 - 33 Final EDT 3 of 14 Narrative Lab Test Result Reference Status Received Comments 06/21/2024 11:22 MCHC 33 X10 3 32 - 36 Final EDT 06/21/2024 11:22 RDW/CV 13.1 % 12.0 - 15.6 Final EDT 06/21/2024 11:22 PLATELET 349 x10/UL 150 - 450 Final EDT 06/21/2024 11:22 AUTOMATED MPV 8.0 fl 6.6 - 10.5 Final EDT DIFFERENTIAL 06/21/2024 11:22 NEUT % 58.4 % 46.0 - 76.0 Final EDT 06/21/2024 11:22 LYMPH % 34.7 % 20.0 - 45.0 Final EDT 06/21/2024 11:22 MONOS % 4.4 % 0.0 - 10.0 Final EDT 06/21/2024 11:22 EO % 2.2 % 0.0 - 7.0 Final EDT 06/21/2024 11:22 BASO % 0.3 % 0.0 - 2.0 Final EDT 3.89 x10/UL 06/21/2024 11:22 Lymph # 0.80 - 2.80 Final Above high normal EDT 06/21/2024 11:22 Neut # 6.55 x10/UL 1.50 - 7.10 Final EDT 06/21/2024 11:22 Republic # 0.49 x10/UL 0.20 - 1.00 Final EDT 06/21/2024 11:22 EO # 0.25 x10/UL 0.00 - 0.50 Final EDT 4 of 14 Narrative Lab Test Result Reference Status Received Comments 06/21/2024 11:22 Baso # 0.03 x10/UL 0.00 - 0.10 Final EDT 06/21/2024 11:22 MANUAL DIFF N/A New Order EDT 06/21/2024 11:22 MORPHOLOGY N/A New Order EDT CMP with eGFR Final PAOLA: 06/21/2024 11:08:00 EDT MsgRcvd: 06/21/2024 11:46 EDT Lab Test Result Reference Status Received Comments COMPREHENSIVE 06/21/2024 CMP with eGFR Final METABOLIC 11:46 EDT PANEL 06/21/2024 SODIUM 144 mmol/l 136 - 145 Final 11:46 EDT 06/21/2024 POTASSIUM 3.6 mmol/L 3.5 - 5.1 Final 11:46 EDT 06/21/2024 CHLORIDE 104 mmol/L 98 - 107 Final 11:46 EDT 06/21/2024 CO2 30.4 mmol/L 21.0 - 32.0 Final 11:46 EDT 123 mg/dl 06/21/2024 GLUCOSE Above high 74 - 106 Final 11:46 EDT normal 06/21/2024 BUN 11 mg/dl 7 - 18 Final 11:46 EDT 5 of 14 Narrative Lab Test Result Reference Status Received Comments 06/21/2024 CREATININE 0.87 mg/dl 0.55 - 1.02 Final 11:46 EDT 101 U/L 06/21/2024 AST/SGOT Above high 13 - 39 Final 11:46 EDT normal 06/21/2024 ALK PHOS 99 U/L 46 - 116 Final 11:46 EDT 06/21/2024 CALCIUM 9.2 mg/dl 8.5 - 10.1 Final 11:46 EDT 8.4 g/dl TOTAL 06/21/2024 Above high 6.4 - 8.2 Final PROTEIN 11:46 EDT normal 06/21/2024 ALBUMIN 4.4 g/dL 3.4 - 5.0 Final 11:46 EDT 4.0 G/DL 06/21/2024 GLOBULIN Above high 1.5 - 3.8 Final 11:46 EDT normal 06/21/2024 A/G RATIO 1.1 0.9 - 1.6 Final 11:46 EDT 1.5 mg/dl 06/21/2024 TOTAL BILI Above high 0.2 - 1.0 Final 11:46 EDT normal 06/21/2024 B/C RATIO 13 ratio 0 - 30 Final 11:46 EDT 120 U/L 06/21/2024 ALT/SGPT Above high 16 - 63 Final 11:46 EDT normal 6 of 14 Narrative Lab Test Result Reference Status Received Comments 06/21/2024 ANION GAP 13 mmol/L 10 - 20 Final 11:46 EDT 06/21/2024 AGE 59 years Final 11:46 EDT 06/21/2024 eGFR >60 ML/MINUTE 60 - 999 Final 11:46 EDT ACCORDING TO THE NATIONAL KIDNEY DISEASE EDUCATION PROGRAM(NKDE), A NORMAL eGFR IS A VALUE GREATER THAN OR EQUAL TO 60 ML/MIN/1.73 SQ METERS. 06/21/2024 CHRONIC KIDNEY eGFR(AA) >60 ML/MINUTE 60 - 999 Final 11:46 EDT DISEASE: <60mL/MIN/1.73 SQ METERS KIDNEY FAILURE: <15mL/MIN/1.73 SQ METERS THIS TEST SHOULD ONLY BE USED FOR PATIENTS 18 YEARS OF AGE AND OLDER. 7 of 14 Narrative CORONAVIRUS (SARS) ANTIGEN TEST Final PAOLA: 06/21/2024 11:08:00 EDT MsgRcvd: 06/21/2024 11:44 EDT Lab Test Result Reference Status Received Comments NORMAL: 06/21/2024 SARS ANTIGEN NEGATIVE Final NEGATIVE 11:44 EDT INTERNAL 06/21/2024 PASS Final CONTROL 11:44 EDT EXTERNAL QC 06/21/2024 YES Final DONE? 11:44 EDT 8 of 14 Narrative Lab Test Result Reference Status Received Comments SARS-CoV-2 THIS TEST IS BEING USED UNDER THE FDA EUA PROCEDURE. THIS ASSAY HAS BEEN VALIDATED AT [facility] FOR USE WITH NASAL AND NASOPHARYNGEAL SWAB SPECIMENS. INTERPRETIVE DATA TEST RESULTS SHOULD ALWAYS BE CONSIDERED IN THE CONTEXT OF CLINICAL OBSERVATIONS AND EPIDEMIOLOGICAL DATA IN MAKING FINAL DIAGNOSIS AND PATIENT MANAGEMENT DECISIONS. PATIENT MANAGEMENT SHOULD FOLLOW CURRENT CDC 9 of 14 GUIDELINES. THE AUREA SARS ANTIGEN JADEN DOES Narrative INFLUENZA VIRUS RAPID A/B Final PAOLA: 06/21/2024 11:08:00 EDT MsgRcvd: 06/21/2024 11:42 EDT Lab Test Result Reference Status Received Comments NEGATIVE 06/21/2024 INFLUENZA A Final [NEGATIVE 11:42 EDT NEGATIVE 06/21/2024 INFLUENZA B Final [NEGATIVE 11:42 EDT INTERNAL 06/21/2024 PASS Final NEG QC 11:42 EDT INTERNAL 06/21/2024 PASS Final POS QC 11:42 EDT EXTERNAL QC 06/21/2024 YES Final DONE? 11:42 EDT 10 of 14 Narrative Lab Test Result Reference Status Received Comments A NEGATIVE TEST RESULT DOES NOT EXCLUDE INFECTION WITH INFLUENZA A OR B. THEREFORE, THE RESULTS OBTAINED FROM THIS FLU TEST SHOULD BE USED IN CONJUCTION WITH CLINICAL FINDINGS TO MAKE AN ACCURATE DIAGNOSIS. A POSITIVE RESULT DOES NOT RULE OUT CO-INFECTIONS WITH OTHER PATHOGENS OR IDENTIFY ANY SPECIFIC INFLUENZA A VIRUS 06/21/2024 SEND TO IC? NO Final SUBTYPE.CO-INFECTION 11:42 EDT WITH INFLUENZA A AND B IS RARE. IT IS RECOMMENDED THAT DUAL POSITIVE RESULTS BE CONFIRMED BY VIRAL CULTURE OR AN FDA-CLEARED INFLUENZA A AND B MOLECULAR ASSAY. INDIVIDUALS WHO HAVE 11 of 14 RECEIVED NASALLY ADMINISTERED INFLUENZA Narrative Lab Test Result Reference Status Received Comments RESULT 06/21/2024 NO Final CRITICAL? 11:42 EDT TROPONIN Final PAOLA: 06/21/2024 11:08:00 EDT MsgRcvd: 06/21/2024 11:47 EDT Lab Test Result Reference Status Received Comments 06/21/2024 11:47 HS TROPONIN 4.7 pg/mL 0.0 - 51.4 Final EDT TROPONIN Final PAOLA: 06/21/2024 12:06:00 EDT MsgRcvd: 06/21/2024 12:49 EDT Lab Test Result Reference Status Received Comments 06/21/2024 12:49 HS TROPONIN 5.0 pg/mL 0.0 - 51.4 Final EDT Diagnostic Study Tests: CHEST 1 VIEW Final EXAM Date: 06/21/2024 11:25:00 EDT MsgRcvd: 06/21/2024 11:29 EDT [place] [id number] [place] [id number] Patient: NORMA ALONSO Phone#: : [phone] Age: 59 Gender: F Pt. Type: ER Account: [id number] Location: [facility] Ordering: RANDY QUILES Exam Date: 06/21/2024/11:08 Family Phys: OSVALDO SUE Charge Code: [id number] Physician: [place] Order #: [id number] 12 of 14 Narrative Dose#: PROCEDURE: X-RAY CHEST 1 VIEW COMPARISON: [facility], XR, CHEST 2 VIEWS, 06/01/2023, 11:26. INDICATIONS: Chest pain. FINDINGS: LUNGS: Normal. No significant pulmonary parenchymal abnormalities. VASCULATURE: Normal. Unremarkable pulmonary vasculature. CARDIAC: Cardiac silhouette appears mildly enlarged however this may be due to AP technique. MEDIASTINUM: Normal. No visible mass or adenopathy. PLEURA: Normal. No effusion or pleural thickening. BONES: Normal. No fracture or visible bony lesion. OTHER: Monitoring leads project across the thorax CONCLUSION: 1. No acute pulmonary parenchymal abnormality. 2. Questionable enlarged cardiac silhouette versus AP technique. If clinically indicated consider PA chest radiograph for more accurate evaluation of cardiac silhouette size. Dictated by: Serenity Krause MD on 06/21/2024 at 11:21 Approved by: Serenity Krause MD on 06/21/2024 at 11:25 PROGRESS AND PROCEDURES Differential Diagnosis: Other possible considerations: ACS, pneumonia, pneumothorax, pulmonary embolism, aortic dissection, musculoskeletal pain. MEDICAL DECISION MAKING: (patient appears well nontoxic. EKG nonischemic. High sensitivity troponin negative x2. Chest x-ray clear. Heart score is 2. Patient be given primary care as well as cardiology follow-up. Asked to return for new or worsening symptoms. Stable time of discharge.). Disposition: Disposition Decision Time: 12:53 06/21/2024. Patient discharged. Discharged in good condition. CLINICAL IMPRESSION Chest pain. DISCHARGE INSTRUCTIONS 13 of 14 Narrative Follow-up: Follow up with your healthcare provider in three days. Call for an appointment. Follow-up with: Haven Meeks MD, [facility], Cardiology, Phone: [phone], [address] [address]. Follow up in three days. Call for an appointment. (Electronically signed by Randy Quiles D.O. 06/21/24 12:54:47 EDT) Generated by [facility] 14 of 14 ED MED ADMINISTRATION DETAIL Observed: 0 06/21/2024 10:57 AM Status: F Source: [facility] Shoe Repairer Medication Administration Record [address] [address] [id number] 06/21/2024 Patient: NORMA ALONOS Sex: Female : 1965 Age: 59y MEASUREMENTS: Wt: 72.6 kg, Ht/Rafy: 62.0 in, BMI: 29.26 ALLERGIES: No known drug allergies Medication Ordered Medication Administration Date/Time 1 of 1 ED SUPER BILL Observed: 06/21/2024 10:57 AM Status: F Source: [facility] Superbill Superbill [address] [address] [id number] 06/21/2024 Patient: NORMA ALONSO Sex: Female : 1965 Age: 59y Item Professional Category Description Facility Code Code Quantity Fee Total Nurse/E/M EMERGENCY 562961 1 $0.00 $0.00 DEPARTMENT VISIT MODERATE SEVERITY (39454-38) Grand Total $0.00 Providers Randy Quiles D.O. Chief Complaint CHEST PAIN. Principal Diagnosis Chest pain. ICD-10 Codes 1 of 2 [facility] R07.9: Chest pain, unspecified 2 of 2 ED VISIT SUMMARY Observed: 06/21/2024 10:57 AM Status: F Source: [facility] Visit Overview Visit Overview [address] [address] [id number] 06/21/2024 Patient: NORMA ALONSO Sex: Female : 1965 Age: 59y 06/21/2024 01:56 PM EDT ED Arrival:10:57 06/21/2024 EDT Status: Recent Travel:no Language:eng Adv Directive: Isolation Status: Ethnicity:N Fall Risk:no risk Infectious Disease Exposure:no Measurements:5'2 / 157.5 Self-Harm Status:risk Sepsis Screen:negative cm 160.0 lb / 72.6 kg Chief Complaint:CHEST PAIN, (about 3 days), and (bonny) ALLERGIES No Known Drug Allergies HOME MEDICATIONS atorvastatin 20 mg tablet: 1 tablet once a day. gabapentin 300 mg capsule: 1 capsule three times a day. loratadine 10 mg tablet: 1 tablet once a day. omeprazole 40 mg capsule,delayed release: 1 capsule once a day. propranolol ER 160 mg capsule,24 hr,extended release: 1 capsule once a day. trazodone 50 mg tablet: 1 tablet once a day. 1 3 Visit Overview PAST MEDICAL HISTORY / PROBLEMS Hyperlipidemia Hypertension Myocardial Infarction PAST SURGICAL HISTORY Cholecystectomy Tubal Ligation SOCIAL HISTORY Smoking status: No Alcohol use: No Drug use: No ED COURSE MEDICATIONS GIVEN IN EMERGENCY DEPARTMENT IV SITE INFORMATION INTAKE OUTPUT REASSESMENT (most recent) 11:00 06/21/24. Ambulatory to room. (Pt c/o left sided chest pain x three days, reports SOB and cough as well.). GENERAL / NEURO / PSYCH: Alert. Oriented X 4. RESPIRATORY: Respirations not labored. Breath sounds within normal limits. CVS: Heart sounds within normal limits. Pulses within normal limits. Capillary refill less than 2 seconds. GI / : Abdomen soft and nontender. SKIN: Skin is warm and dry. VITAL SIGNS First Vitals Last Vitals Temp 11:02 06/21/24 97.4 F Temp 13:20 06/21/24 BP 11:02 06/21/24 167/80 BP 13:20 06/21/24 HR 11:02 06/21/24 65 HR 13:06/21/24 2 of 3 Visit Overview First Vitals Last Vitals RR 11:02 06/21/24 18 RR 13:06/21/24 18 O2 Sat 11:02 06/21/24 95% O2 Sat 13:06/21/24 Pain 11:02 06/21/24 8 Pain 13:06/21/24 ETCO2 11:02 06/21/24 ETCO2 13:20 06/21/24 GCS 11:02 06/21/24 GCS 13:20 06/21/24 RTS 11:02 06/21/24 RTS 13:20 06/21/24 PROCEDURES NURSING INTERVENTIONS LABS / STUDIES LABS / STUDIES ORDERED CBC w Diff Chest 1V CMP EKG - ED Flu Swab (Influenzae AAg) Rapid COVID (SARS) ANTIGEN TEST Troponin-I Protocol (STAT 1hr) Troponin-I Protocol (STAT 1hr) CLINICAL IMPRESSION CHEST PAIN 3 of 3 ED PHYSICIAN DISCHARGE REPORT Observed: 06/21/2024 10:57 AM Status: F Source: [facility] Discharge Instructions Discharge Summary [address] [address] [id number] 06/21/2024 Patient: NORMA ALONSO Sex: Female : 1965 Age: 59y Thank you for visiting [facility]. You have been evaluated today by Randy Quiles D.O. for the following condition(s): Principal Diagnosis Chest pain. INSTRUCTIONS Follow-up: Follow up with your healthcare provider in three days. Call for an appointment. Follow-up with: Haven Meeks MD, [facility], Cardiology, Phone: [phone], [address] [place] [address]. Follow up in three days. Call for an appointment. You have been given the following additional information: Uncertain Causes of Chest Pain Patient Signature Facility Him Manager Date/Time 1 of 4 Discharge Instructions General Instructions with ExitWriter [address] [address] [id number] 06/21/2024 Patient: NORMA ALONSO Sex: Female : 1965 Age: 59y Thank you for visiting [facility]. You have been evaluated today by Randy Quiles D.O. for the following condition(s): Principal Diagnosis Chest pain. INSTRUCTIONS Follow-up: Follow up with your healthcare provider in three days. Call for an appointment. Follow-up with: Haven Meeks MD, [facility], Cardiology, Phone: [phone], [facility] [employer] [employer] [address] [address]. Follow up in three days. Call for an appointment. ADDITIONAL INFORMATION 2 of 4 Discharge Instructions Uncertain Causes of Chest Pain Chest pain can happen for a number of reasons. Sometimes the cause can't be determined. If your condition does not seem serious, and your pain does not appear to be coming from your heart, your healthcare provider may recommend watching it closely. Sometimes the signs of a serious problem take more time to appear. Many problems not related to your heart can cause chest pain. These include: Musculoskeletal. Costochondritis is an inflammation of the tissues around the ribs that can occur from trauma or overuse injuries, or a strain of the muscles of the chest wall Respiratory. Pneumonia, collapsed lung (pneumothorax), or inflammation of the lining of the chest and lungs (pleurisy) Gastrointestinal. Esophageal reflux, heartburn, ulcers, or gallbladder disease Anxiety and panic disorders Nerve compression and inflammation Rare miscellaneous problems such as aortic aneurysm (a swelling of the large artery coming out of the heart) or pulmonary embolism (a blood clot in the lungs) Home care After your visit, follow these recommendations: Rest today and avoid strenuous activity. Take any prescribed medicine as directed. 3 of 4 Discharge Instructions Be aware of any recurrent chest pain and notice any changes Follow-up care Follow up with your healthcare provider if you do not start to feel better within 24 hours, or as advised. Call 911 Call 911 if any of these occur: A change in the type of pain: if it feels different, becomes more severe, lasts longer, or begins to spread into your shoulder, arm, neck, jaw or back Shortness of breath or increased pain with breathing Weakness, dizziness, or fainting Rapid heart beat Crushing sensation in your chest When to seek medical advice Call your healthcare provider right away if any of the following occur: Cough with dark colored sputum (phlegm) or blood Fever of 100.4F (38C) or higher, or as directed by your healthcare provider Swelling, pain or redness in one leg 4 of 4 ED NURSES CLINICAL NOTE Observed: 2024 10:57 AM Status: F Source: [facility] Nurse Narrative Nurse Clinical Narrative [facility] [address] [facility] [place] [address] [id number] 06/21/2024 Patient: NORMA ALONSO Sex: Female : 1965 Age: 59y Primary Insurance: [facility] Policy Number: [id number] Subscriber: Other Disposition: Discharge to Home Disposition Decision Time: 12:53 06/21/2024 Departure Time: 13:23 06/21/2024 TRIAGE Arrived by private vehicle. Historian: (patient). Primary physician (bonny). Triage time: 10:53 06/21/2024. Acuity: LEVEL 2. Chief Complaint: CHEST PAIN. Onset. (about 3 days). The patient has had difficulty breathing and a cough. Reports experiencing sweating episodes. SEPSIS SCREEN: NEGATIVE. SIRS criteria negative. No possible sources of infection. -- 11:06/21/24 AGNES Becker R.N. 11:06/21/24. BP: 167/80 MAP: 109. HR: 65. RR: 18. O2 saturation: 95% Temperature: 97.4 F. Pain level now 8/10. Describes the pain as sharp. -- 11:06/21/24 AGNES Becker R.N. Measurements: 11:06/21/24 Wt: 72.6 kg, Ht/Rafy: 62.0 in, BMI: 29.26 -- 11:06/21/24 AGNES Becker R.N. Medications: trazodone 50 mg tablet: 1 tablet once a day. -- 11:06/21/24 AGNES Becker R.N. 1 of 4 Nurse Narrative propranolol ER 160 mg capsule,24 hr,extended release: 1 capsule once a day. -- 11:06/21/24 AGNES Becker R.N. omeprazole 40 mg capsule,delayed release: 1 capsule once a day. -- 11:06/21/24 AGNES Becker R.N. loratadine 10 mg tablet: 1 tablet once a day. -- 11:06/21/24 AGNES Becker R.N. gabapentin 300 mg capsule: 1 capsule three times a day. -- 11:06/21/24 AGNES Becker R.N. atorvastatin 20 mg tablet: 1 tablet once a day. -- 11:06/21/24 AGNES Becker R.N. Allergies: no known drug allergies -- 10:06/21/24 CEET Ellis Becker R.N. Problems: Myocardial Infarction -- 10:58 06/21/24 AGNES Becker R.N. Hypertension -- 10:06/21/24 EDT Ellis Becker R.N. Hyperlipidemia -- 10:58 06/21/24 CEET Ellis Becker R.N. ADDITIONAL SURGERIES: Cholecystectomy -- 10:06/21/24 CEET Ellis Becker R.N. Tubal Ligation -- 10:06/21/24 EDT Ellis Becker R.N. History 10:53 06/21/24. SOCIAL HX: Former smoker. Never smoker. No alcohol use or drug use. The patient has not traveled outside the [place] Infectious disease exposure: No infectious disease exposure. ABUSE ASSESSMENT: The patient answered yes to the question(s) Do you feel safe in your home? and no to the question(s) Are you afraid to go home?. SELF HARM ASSESSMENT: Self harm assessment was performed. The patient answered no to the question(s) Have you recently felt down, depressed, or hopeless?. FALL RISK ASSESSMENT: Fall risk assessment completed. No risk factors identified. -- 11:06/21/24 EDT Ellis Becker R.N. 2 of 4 Nurse Narrative Interventions 10:53 06/21/24. To room. -- 11:06/21/24 EDT Ellis eBcker R.N. PHYSICAL ASSESSMENT 11:00 06/21/24. Ambulatory to room. (Pt c/o left sided chest pain x three days, reports SOB and cough as well.). GENERAL / NEURO / PSYCH: Alert. Oriented X 4. RESPIRATORY: Respirations not labored. Breath sounds within normal limits. CVS: Heart sounds within normal limits. Pulses within normal limits. Capillary refill less than 2 seconds. GI / : Abdomen soft and nontender. SKIN: Skin is warm and dry. -- 11:06/21/24 EDT Heron Eduardo R.N. NURSING PROGRESS NOTES 10:06/21/24. 12-LEAD EKG: EKG time: (10:06/21/2024). 12-Lead EKG was ordered, performed by me and shown to the ED physician (11:06/21/2024). -- 11:04 06/21/24 EDT Heron Eduardo R.N. 11:06/21/24. Patient identifiers checked. Call light placed in reach. Side rails up x 1. Bed placed in lowest position. Brakes of bed on. -- 11:06/21/24 EDT Heron Eduardo R.N. 11:10 06/21/24. Two patient identifiers checked. Call light placed in reach. Side rails up x 2. Bed placed in lowest position. Brakes of bed on. Brakes of chair on. -- 11:06/21/24 EDT Eber Taylor R.N. 11:10 06/21/24. Site #1 started via IV in the left antecubital space with a 20g angiocath; 1 attempt. Blood drawn: rainbow set tube(s). -- 11:06/21/24 EDT Eber Taylor R.N. 12:06/21/24. Rounding: Position: states comfortable. Proximity of possessions / care items: call light within easy reach. Plug ins: checked status of equipment in use; located all cords, tubes, and lines to prevent fall hazard. Set expectations: advised patient of rounding protocol timing and asked if they needed anything else at this time. -- 12:49 06/21/24 EDT Heron Eduardo R.N. DISPOSITION / DISCHARGE 12:46 06/21/24. BP: 165/88 MAP: 105 mmHg. HR: 56 bpm. -- 13:34 06/21/24 EDT Heron Eduardo R.N. 12:50 06/21/24. HR: 59 bpm. O2 saturation: 96%. -- 13:34 06/21/24 EDT Heron Eduardo R.N. 13:15 06/21/24. Site #1 removed upon discharge. Catheter intact. Bandage applied. -- 13:34 06/21/24 EDT Heron Eduardo R.N. 13:20 06/21/24. RR: 18. Temperature: Deferred . Pain: Deferred. -- 13:34 06/21/24 EDT Heron Eduardo R.N. 3 of 4 Nurse Narrative Departure time: 13:23 06/21/2024. Condition at departure: improved and stable. No learning barriers present. Discharge instructions provided and reviewed with the patient. Reviewed warnings. Reviewed referrals. Patient verbalized understanding. Written instructions provided in Slovenian. The patient was discharged by the physician. The patient was discharged home. The patient left ambulatory and via private vehicle. Patient driving. -- 13:35 06/21/24 EDT Heron Eduardo R.N. (Electronically signed by Heron Eduardo R.N. 06/21/24 13:55:57 EDT) Generated by [facility] 4 of 4 ED ORDER SHEET (CPOE ONLY) Observed: 10:57 AM Status: F Source: [facility] Order Sheet Order Sheet [address] [place] [address] [id number] 06/21/2024 Patient: NORMA ALONSO Sex: Female : 1965 Age: 59y MEASUREMENTS: Wt: 72.6 kg, Ht/Rafy: 62.0 in, BMI: 29.26 ALLERGIES: No known drug allergies MEDICATION/IV/DRIP/FLUID ORDERS Order Description Priority Entered Acknowledged Completed LAB ORDERS Order Description Priority Entered Acknowledged Collected Completed CBC w Diff Stat Stat 11:06/21/2024 11:03 06/21/2024 11:38 06/21/2024 Heron Flores Lemasters, D.O. R.NMarco Antonio R.N. CMP Stat Stat 11:01 06/21/2024 11:03 06/21/2024 11:38 06/21/2024 Heron Flores Lemasters, D.O. R.NMarco Antonio R.NMarco Antonio EKG - ED Stat Stat 11:01 06/21/2024 11:03 06/21/2024 11:05 06/21/2024 Heron Flores Lemasters, D.O. R.NMarco Antonio R.N. Troponin-I Protocol Stat 11:01 06/21/2024 11:03 06/21/2024 11:38 06/21/2024 (STAT 1hr) (Sched: q1h Heron Flores, 1 of 3 Order Sheet X2); Stat 1 of 2 Phi Quiles.N. R.NMarco Antonio Troponin-I Protocol Stat 11:01 06/21/2024 12:03 06/21/2024 12:03 06/21/2024 (STAT 1hr) (Sched: q1h Randy Eduardo, Heron Eduardo, X2); Stat 2 of 2 Phi Quiles.N. R.NMarco Antonio Rapid COVID (SARS) Stat 11:02 06/21/2024 11:03 06/21/2024 11:39 06/21/2024 ANTIGEN TEST Stat Heron Flores Lemasters, D.O. R.N. R.NMarco Antonio Flu Swab (Influenzae Stat 11:02 06/21/2024 11:03 06/21/2024 11:39 06/21/2024 AAg) Stat Heron Flores Lemasters, D.O. R.N. R.N. DIAGNOSTIC STUDY ORDERS Order Description Priority Entered Acknowledged Completed Chest 1V Stat Stat 11:01 06/21/2024 11:03 11:39 Randy Quiles, 06/21/2024 06/21/2024 Heron Rivera R.N. R.N. Reason for Study: Chest Pain STAFF ORDERS Order Description Priority Entered Acknowledged Collected Completed Oxygen titrate to 92% 11:01 06/21/2024 11:03 06/21/2024 11:38 06/21/2024 Heron Flores Lemasters, D.O. R.N. R.N. Softball Coach 11:01 06/21/2024 11:03 06/21/2024 11:38 06/21/2024 Heron Flores Lemasters, D.O. R.N. R.NMarco Antonio 2 of 3 Order Sheet Vital signs every 15 11:01 06/21/2024 11:03 06/21/2024 11:39 06/21/2024 minutes Randy HeronHeron Henderson Lemasters, D.O. R.N. R.N. IV Saline Lock 11:01 06/21/2024 11:03 06/21/2024 11:38 06/21/2024 Heron Flores Lemasters, D.O. R.N. R.N. [Electronically signed by Randy Quiles D.O. (06/21/2024 12:54 EDT)] 3 of 3 CNCO Observed: 06/06/2024 12:00 AM Status: COMPLETED Source: [facility] Letter Text CNPTOUTREACH Observed: 06/05/2024 12:00 AM Status: COMPLETED Source: [facility] Patient Outreach (FAMPWS) NORMA ALONSO ([id number]) 1965 F Date Time Provider Department 06/05/24 OSVALDO SUE FAMPWS During your visit today, we recorded the following information about you: Allergies As of Date: 06/05/2024 (No Known Allergies) Date Reviewed: 05/02/2024 Reviewed by: La Jacques PA-C - Fully Assessed Visit Diagnosis:Encounter for screening mammogram for breast cancer [Z12.31] Order(s):[facility] [[id number]] Order #: [id number] FUTURE Prescriptions as of 07/06/2024 - gabapentin (NEURONTIN) 300 mg capsule Take 1 capsule by mouth three times a day for 90 days. - omeprazole (PRILOSEC) 40 mg capsule Take 1 capsule by mouth once daily. - escitalopram oxalate (LEXAPRO) 20 mg tablet Take 1 tablet by mouth once daily. - traZODone (DESYREL) 50 mg tablet Take 1 tablet by mouth daily at bedtime. - atorvastatin (LIPITOR) 20 mg tablet Take 1 tablet by mouth daily at bedtime. For cholesterol. - famotidine (PEPCID) 20 mg tablet Take 1 tablet by mouth two times a day. - loratadine (CLARITIN) 10 mg tablet Take 1 tablet by mouth once daily. - propranolol ER (INDERAL LA) 160 mg Cs24 Take 1 capsule by mouth once daily. - losartan (COZAAR) 50 mg tablet Take 1 tablet by mouth once daily. - SUMAtriptan (IMITREX STATDOSE PEN) 6 mg/0.5 mL pen Inject 0.5 mL subcutaneously as needed for migraine headache (see administration instructions). May repeat in 1 hour if needed. Max of 12 mg in 24 hrs. - estradiol (ESTRACE) 0.01 % (0.1 mg/gram) vaginal cream Use 0.5g vaginally at bedtime for 2 weeks then 3 times/weeks for maintenance. Problem List As Of Date 06/05/2024 Noted Resolved Heart attack (HCC) [I21.9] 07/24/2014 Essential hypertension [I10] 07/24/2014 Anxiety disorder [F41.9] 07/24/2014 Anemia [D64.9] 07/24/2014 Migraine headache [G43.909] Environmental allergies [Z91.09] 10/06/2018 Tension headache [G44.209] 10/06/2018 Well adult exam [Z00.00] 10/06/2018 History of OR (myocardial infarction) [I25.2] 07/11/2019 Former smoker [Z87.891] 2020 Lung nodules [R91.8] 2020 Elevated LFTs [R79.89] 2020 GERD without esophagitis [K21.9] 12/12/2020 Elevated hemoglobin A1c [R73.09] 07/18/2021 Medication management [Z79.899] 07/18/2021 Metabolic dysfunction-associated steatohepatiti*08/17/2021 Female genital prolapse [N81.9] 08/17/2021 Pelvic pain [R10.2] 10/06/2021 Levator spasm [M62.838] 11/17/2021 Mixed stress and urge urinary incontinence [N39*11/17/2021 Cystocele, midline [N81.11] 11/17/2021 Screening for colon cancer [Z12.11] 06/04/2022 Situational depression [F43.21] 06/04/2022 Aneurysm of left subclavian artery (HCC) [I72.8]07/21/2022 Encounter Status:Closed by LUZ BLOCK on 07/06/24 YUNI Observed: 05/14/2024 12:00 AM Status: COMPLETED Source: [facility] Telephone (NEMOWS) GAVINNORMA Aguillon ([id number]) 1965 F Date Time Provider Department 05/14/24 LA JACQUES During your visit today, we recorded the following information about you: Kaye Negron RN 05/14/2024 9:17 AM Signed Pt phoned asking for results of MRI. Given provider's message under MRI results. Patient states if MRI is normal, then why is she still having headaches. Reports the gabapentin helps but doesn't last, she is still having headaches during the day. Reports she is taking gabapentin 300 mg twice a day, one in the morning and one at night. Asking if provider can prescribe, in addition to the morning and night pill, 2 more pills during the day? Please advise patient. La Jacques PA-C 05/15/2024 12:40 PM Signed Typically go to three times a day. New script sent. [facility] website checked and validated. All prescriptions have been APPROPRIATELY filled. No suspicious activity was identified. 05/15/2024 by JOSE Jacobs Samaria, LPN 05/15/2024 1:51 PM Signed Spoke to patient, verified name and date of . Advised patient medication has been sent, verbalized understanding. Rehana Moreland LPN May 15, 2024 1:50 PM Encounter closed Allergies As of Date: 05/14/2024 (No Known Allergies) Date Reviewed: 05/02/2024 Reviewed by: La Jacques PA-C - Fully Assessed Reason for Visit: Results [95] Order(s):gabapentin (NEURONTIN) 300 mg capsuleTake 1 capsule by mouth three times a day for 90 days.Disp: 90 capsuleRfl: 2 Prescriptions as of 05/15/2024 - gabapentin (NEURONTIN) 300 mg capsule Take 1 capsule by mouth three times a day for 90 days. - omeprazole (PRILOSEC) 40 mg capsule Take 1 capsule by mouth once daily. - escitalopram oxalate (LEXAPRO) 20 mg tablet Take 1 tablet by mouth once daily. - traZODone (DESYREL) 50 mg tablet Take 1 tablet by mouth daily at bedtime. - atorvastatin (LIPITOR) 20 mg tablet Take 1 tablet by mouth daily at bedtime. For cholesterol. - famotidine (PEPCID) 20 mg tablet Take 1 tablet by mouth two times a day. - loratadine (CLARITIN) 10 mg tablet Take 1 tablet by mouth once daily. - propranolol ER (INDERAL LA) 160 mg Cs24 Take 1 capsule by mouth once daily. - losartan (COZAAR) 50 mg tablet Take 1 tablet by mouth once daily. - SUMAtriptan (IMITREX STATDOSE PEN) 6 mg/0.5 mL pen Inject 0.5 mL subcutaneously as needed for migraine headache (see administration instructions). May repeat in 1 hour if needed. Max of 12 mg in 24 hrs. - estradiol (ESTRACE) 0.01 % (0.1 mg/gram) vaginal cream Use 0.5g vaginally at bedtime for 2 weeks then 3 times/weeks for maintenance. Problem List As Of Date 05/14/2024 Noted Resolved Heart attack (HCC) [I21.9] 07/24/2014 Essential hypertension [I10] 07/24/2014 Anxiety disorder [F41.9] 07/24/2014 Anemia [D64.9] 07/24/2014 Migraine headache [G43.909] Environmental allergies [Z91.09] 10/06/2018 Tension headache [G44.209] 10/06/2018 Well adult exam [Z00.00] 10/06/2018 History of OR (myocardial infarction) [I25.2] 07/11/2019 Former smoker [Z87.891] 2020 Lung nodules [R91.8] 2020 Elevated LFTs [R79.89] 2020 GERD without esophagitis [K21.9] 12/12/2020 Elevated hemoglobin A1c [R73.09] 07/18/2021 Medication management [Z79.899] 07/18/2021 Metabolic dysfunction-associated steatohepatiti*08/17/2021 Female genital prolapse [N81.9] 08/17/2021 Pelvic pain [R10.2] 10/06/2021 Levator spasm [M62.838] 11/17/2021 Mixed stress and urge urinary incontinence [N39*11/17/2021 Cystocele, midline [N81.11] 11/17/2021 Screening for colon cancer [Z12.11] 06/04/2022 Situational depression [F43.21] 06/04/2022 Aneurysm of left subclavian artery (HCC) [I72.8]07/21/2022 Prescriptions ordered this encounter Disp Refills Start End GABAPENTIN 300 MG CAPSULE 90 c* 2 05/15/2024 08/13/2024 Route: ORAL Sig: Take 1 capsule by mouth three times a day for 90 days. Medications Discontinued During This Encounter Prescriptions - gabapentin (NEURONTIN) 300 mg capsule (Discontinued) Take 1 capsule by mouth two times a day for 90 days. Encounter Status:Closed by REHANA MORELAND on 05/15/24 MRI BRAIN WO IVCON Observed: 05/09/2024 9:17 AM Status: F Source: [facility] * * *Final Report* * * DATE OF EXAM: May 09 2024 9:17AM [facility] [id number] - MRI BRAIN WO IVCON / PROCEDURE REASON: Chronic daily headache * * * * Physician Interpretation * * * * EXAMINATION: MRI BRAIN WO IVCON CLINICAL HISTORY: Chronic daily headaches. TECHNIQUE: Routine noncontrast MRI protocol including diffusion images. MQ: [id number] COMPARISON: None. RESULT: Acute Change: There is no evidence of restricted diffusion to suggest an acute infarct. Hemorrhage: No evidence of prior parenchymal hemorrhage on the susceptibility weighted images. Mass Lesion/ Mass Effect: No evidence of an intracranial mass or extra-axial fluid collection. No significant mass effect. Chronic Change: Scattered punctate foci of increased T2 and FLAIR signal are noted in the supratentorial white matter which is a nonspecific finding, but likely represents minimal chronic microvascular ischemia. Parenchyma: No significant volume loss for age. The brain parenchyma is otherwise within normal limits of signal intensity and morphology. Ventricles: Normal caliber and morphology. Skull Base: Hypothalamic and pituitary region are grossly normal. Craniocervical junction is normal. No significant marrow replacement process. Vasculature: Major intracranial arterial structures, and dural venous sinuses show typical flow void, suggesting patency by spin echo criteria. Other: The visualized paranasal sinuses and mastoid air cells are clear. Right exotropia. The orbits and extracranial soft tissues are unremarkable. IMPRESSION: Normal MRI brain without contrast for age. Incidentally noted right exotropia. Globe Changer: PSCB Transcribe Date/Time: May 09 2024 10:06A Dictated by : HOLDEN MEDINA MD This examination was interpreted and the report reviewed and electronically signed by: HOLDEN MEDINA MD on May 09 2024 10:07AM EST [id number] PROGRESS Observed: 05/09/2024 9:00 AM Status: COMPLETED [facility] [id number] Author: RADHA WINTER RT(R) Service: ? Author Type: Technologist Type: Progress Notes Filed: 05/09/2024 09:11 Note Text: Radiology Service Progress Note PATIENT NAME: Norma Alonso DATE OF SERVICE: May 09, 2024 TIME: 9:11 AM PATIENT IDENTITY VERIFICATION COMPLETED USING TWO (2) IDENTIFIERS: Name and Date of confirmed by patient verbally. FALL SCREENING: Has the patient had 2 falls in the last year or 1 fall with injury or currently using an Ambulatory Assistive Device (Walker, Cane, Wheelchair, Crutches, etc.)? No PATIENT GENDER DATA: Assigned female at . status: : No status: NO. PATIENT RELEVANT IMPLANT DATA REVIEWED: Yes PATIENT PRESENTS WITH AN IMPLANTABLE OR ATTACHED BI APPLICATION DEVELOPER: No RADIOLOGY DEPARTMENT: MR; Exam(s) Completed: Head: Routine Brain PERIPHERAL IV DATA: Not applicable SIGNED BY: WILDA Armstrong) May 09, 2024 9:11 AM CNPN Observed: 05/08/2024 12:00 AM Status: COMPLETED Source: [facility] Telephone (FAMPWS) NORMA ALONSO ([id number]) 1965 F Date Time Provider Department 05/08/24 OSVALDO SUE During your visit today, we recorded the following information about you: Kaye Negron RN 05/08/2024 11:56 AM Signed Patient asking pcp to order her a different acid reflux pill. States the famotidine is not helping. [facility]. Last ov: 04/11/24 Osvaldo Sue MD 05/08/2024 4:56 PM Signed Let patient know she was taking omeprazole 40 mg a day in 2021 and 2022. Does she want to go back to taking it. If so I will send in a script and will need f/u in a month within the triad. Loan Constantino OCCA 05/09/2024 10:13 AM Signed TC to patient who states she would like to go back on the omeprazole to [facility] in [place]. Patient has been scheduled for follow up with Vishnu Sahu on 06/06. MONICA Macedo Rayanne, PA-C 05/09/2024 11:47 AM Signed The following approved medication requests have been transmitted electronically. Requested Prescriptions Signed Prescriptions Disp Refills omeprazole (PRILOSEC) 40 mg capsule 30 capsule 5 Sig: Take 1 capsule by mouth once daily. Authorizing Provider: CHERYL SAHU PA-C Allergies As of Date: 05/08/2024 (No Known Allergies) Date Reviewed: 05/02/2024 Reviewed by: La Jacques PA-C - Fully Assessed Reason for Visit: Patient Question [7097] Order(s):omeprazole (PRILOSEC) 40 mg capsuleTake 1 capsule by mouth once daily.Disp: 30 capsuleRfl: 5 Prescriptions as of 05/09/2024 - omeprazole (PRILOSEC) 40 mg capsule Take 1 capsule by mouth once daily. - gabapentin (NEURONTIN) 300 mg capsule Take 1 capsule by mouth two times a day for 90 days. - escitalopram oxalate (LEXAPRO) 20 mg tablet Take 1 tablet by mouth once daily. - traZODone (DESYREL) 50 mg tablet Take 1 tablet by mouth daily at bedtime. - atorvastatin (LIPITOR) 20 mg tablet Take 1 tablet by mouth daily at bedtime. For cholesterol. - famotidine (PEPCID) 20 mg tablet Take 1 tablet by mouth two times a day. - loratadine (CLARITIN) 10 mg tablet Take 1 tablet by mouth once daily. - propranolol ER (INDERAL LA) 160 mg Cs24 Take 1 capsule by mouth once daily. - losartan (COZAAR) 50 mg tablet Take 1 tablet by mouth once daily. - SUMAtriptan (IMITREX STATDOSE PEN) 6 mg/0.5 mL pen Inject 0.5 mL subcutaneously as needed for migraine headache (see administration instructions). May repeat in 1 hour if needed. Max of 12 mg in 24 hrs. - estradiol (ESTRACE) 0.01 % (0.1 mg/gram) vaginal cream Use 0.5g vaginally at bedtime for 2 weeks then 3 times/weeks for maintenance. Problem List As Of Date 05/08/2024 Noted Resolved Heart attack (HCC) [I21.9] 07/24/2014 Essential hypertension [I10] 07/24/2014 Anxiety disorder [F41.9] 07/24/2014 Anemia [D64.9] 07/24/2014 Migraine headache [G43.909] Environmental allergies [Z91.09] 10/06/2018 Tension headache [G44.209] 10/06/2018 Well adult exam [Z00.00] 10/06/2018 History of OR (myocardial infarction) [I25.2] 07/11/2019 Former smoker [Z87.891] 2020 Lung nodules [R91.8] 2020 Elevated LFTs [R79.89] 2020 GERD without esophagitis [K21.9] 12/12/2020 Elevated hemoglobin A1c [R73.09] 07/18/2021 Medication management [Z79.899] 07/18/2021 Metabolic dysfunction-associated steatohepatiti*08/17/2021 Female genital prolapse [N81.9] 08/17/2021 Pelvic pain [R10.2] 10/06/2021 Levator spasm [M62.838] 11/17/2021 Mixed stress and urge urinary incontinence [N39*11/17/2021 Cystocele, midline [N81.11] 11/17/2021 Screening for colon cancer [Z12.11] 06/04/2022 Situational depression [F43.21] 06/04/2022 Aneurysm of left subclavian artery (HCC) [I72.8]07/21/2022 Prescriptions ordered this encounter Disp Refills Start End OMEPRAZOLE 40 MG CAPSULE,DELAYED REL* 30 c* 5 05/09/2024 Route: ORAL Sig: Take 1 capsule by mouth once daily. Encounter Status:Closed by CHERYL PERKINS on 05/09/24 TOROOV Observed: 05/02/2024 9:30 AM Status: COMPLETED Source: [facility] Office Visit (NEMOWS) JAMALNORMA STOCKTON ([id number]) 1965 F Date Time Provider Department 05/02/24 9:30 AM LA JACQUES During your visit today, we recorded the following information about you: Pulse Blood pressure Weight 49/minute 136/83 73.1 kg La Jacques PA-C 05/02/2024 10:09 AM Signed Neurology Outpatient Clinic Date: May 02, 2024 Patient Name: Norma Alonso Referring physician: Cheryl Sahu PA-C [address] [facility] [id number] Consult requested for headaches by Cheryl Sahu PA-C. Recommendations will be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 [facility] 01/19/2024 Primary Insurance:[employer] MEDICAIDPolicy Number: [id number] Date:8710-36-78Sbpy Name:Bryce MONTAGUEB: [id number] [place] [address] [facility]
[2024-12-29 10:58] VITALS: BP 147/91; PULSE 41; RESP 18; TEMP 37; O2SAT 99; BMI 30.2
--- NOTE | 2024-12-29 11:12 | CT_ITS ---
PROCEDURE: ABDOMEN/PELVIS W IV CONT ONLY 12/29/2024 REASON FOR EXAM: NAUSEA AND VOMITING TECHNIQUE: Procedure Code: CTABDPELIV Modality: CT Procedure: ABDOMEN/PELVIS W IV CONT ONLY Coronal and Sagittal reconstruction series were provided. CONTRAST: Isovue-300 VOLUME: 100 mL One or more dose reduction techniques were used (e.g., Automated exposure control, adjustment of the mA and/or kV according to patient size, use of iterative reconstruction technique. RADIATION DOSE SUMMARY: CTDlvol: 26.14 mGy DLP: 923.33 mGycm COMPARISON: CT abdomen and pelvis with IV contrast, 08/09/2024 FINDINGS: Lung bases: Nodules seen in the lung bases are unchanged. There are no pleural effusions. The heart size is normal. There is no pericardial effusion. There is no significant calcific vascular disease of the coronary arteries or visualized portion of the thoracic aorta. Liver: Fatty liver infiltration. Gallbladder: Surgically absent. Spleen: Normal. Pancreas: Normal size without evidence of mass surrounding inflammation or ductal dilation. Adrenals: Normal. Kidneys: Normal renal sizes. No hydronephrosis. Bladder: The urinary bladder is partially evacuated but has an otherwise normal unenhanced appearance. Reproductive Organs: There are numerous dilated vessels surrounding the uterus consistent with pelvic congestion. There is a left ovarian cyst measuring 4.8 x 4.4 x 3.5 cm (was 4.5 x 4.4 x 3.5 cm). There is a right ovarian cyst, measuring 2.3 x 2.2 x 2.2 cm (was 2.2 x 2.0 x 2.0 cm). There are bilateral tubal ligation clips. Bowel: The gastrointestinal tract appears unremarkable. Appendix: The appendix is not identified. There is no inflammatory process identified in the right lower quadrant to suggest appendicitis. Lymph nodes: There is no significant mesenteric, retroperitoneal or pelvic lymphadenopathy. Vasculature: There is calcific vascular disease of the abdominal aorta. Peritoneum / Retroperitoneum: There are no abnormal intra or retroperitoneal masses or fluid collections. Bones: There are no significant bony abnormalities of the abdomen or pelvis. CT/Abdomen/Pelvis W IV Cont ONLY IMPRESSION: 1. Serpiginous vessels surrounding the uterus consistent with pelvic congestio n. 2. Bilateral ovarian cysts, not significantly changed. 3. The appearance of the lung bases is unchanged. 4. Fatty liver infiltration. Reading Location: [id number]
--- NOTE | 2024-12-29 11:15 | EX.ED.DYSGE1 ---
HPI History of Present Illness Chief Complaint: Nausea/Vomiting Narrative Narrative: 59-year-old female past medical history of hypertension, recent UTI, previous gastroenteritis presents with nausea and vomiting and decreased p.o. intake. She relates history that she was seen in [place] 1 to 2 weeks ago, and was given something for her nausea and vomiting, and sent home. She fell and broke her right arm and is currently in a sling. Since Tuesday, approximately 5 to 6 days ago she was unable to keep any of her medications down and has had nausea and vomiting but no diarrhea. She feels somewhat feverish as well. States she cannot take her pain medications. She is also unable to take her antibiotics for a urinary tract infection. Her fianc? states that when this happened to her approximately a year ago she had to be admitted for rehydration. [facility] Medical History Old myocardial infarction Mixed hyperlipidemia GERD (gastroesophageal reflux disease) Essential hypertension Lung nodules Aneurysm of left subclavian artery Chest pain Dehydration Former tobacco use Migraine Hypertension Elevated LFTs Hypokalemia Gastroenteritis No significant past medical history Home Medications ?Medication ?Instructions ?Recorded ?Last Taken ?Type propranolol 160 mg capsule,24 160 mg PO DAILY 05/03/19 Unknown History hr,extended release famotidine 20 mg tablet 20 mg PO BID #60 tabs 05/04/19 Unknown Rx naproxen 500 mg tablet 500 mg PO BID #14 tabs 04/15/20 Unknown Rx atorvastatin 20 mg tablet 20 mg PO QHS 08/19/22 Unknown History loratadine 10 mg tablet 10 mg PO DAILY 08/19/22 Unknown History omeprazole 40 mg capsule,delayed 40 mg PO DAILY 08/19/22 Unknown History release sumatriptan succinate 6 mg/0.5 mL 6 mg subcut Q1-4H PRN migraine 08/19/22 Unknown History subcutaneous pen injector headache gabapentin 300 mg capsule 300 mg PO TID 08/09/24 Unknown History ondansetron HCl 4 mg tablet 4 mg PO Q6H PRN nausea and vomiting 08/09/24 Unknown History trazodone 50 mg tablet 50 mg PO QHS 08/09/24 Unknown History promethazine 25 mg tablet 25 mg PO Q6H PRN nausea and 12/29/24 Unknown Rx vomiting #15 tabs Allergy/AdvReac Type Severity Reaction Status Date / Time No Known Allergies Allergy Verified 12/29/24 10:58 Surgical History History of left heart catheterization (LHC) (~04/29/14) Social History Smoking Status: Former smoker ROS ROS ED ROS Narrative Review of systems positive for nausea and vomiting, 4-5 episodes in the last 24 hours. Unable to eat or drink for the last 5 days. Subjective fever. Denies diarrhea. Positive diffuse abdominal pain. No exacerbating or alleviating factors. Pain in right arm from fracture. EXAM Physical Exam Narrative Exam Narrative: Afebrile. Vital signs noted. Nontoxic-appearing. Cardiovascular examination reveals mild bradycardia. Lungs are clear to auscultation bilaterally. Abdomen is soft with diffuse tenderness to palpation without guarding or rebound. Positive bowel sounds. Neurological examination is nonfocal, nonlateralizing. Musculoskeletal examination shows right arm in sling. Const Vital Signs: 12/29/24 10:58 12/29/24 12:57 12/29/24 13:54 Temperature 98.6 F 98.6 F Temperature Source Temporal Pulse Rate 41 L 96 96 Respiratory Rate 18 18 Blood Pressure 147/91 H 152/90 H 152/90 H Blood Pressure Mean 109 110 110 Pulse Ox 99 98 98 Oxygen Delivery Method Room Air Room Air MDM MDM MDM Narrative Medical decision making narrative: Differential diagnosis includes but not limited to gastritis versus gastroenteritis versus pancreatitis versus bowel obstruction versus partial small bowel obstruction versus colitis. Comprehensive workup was pursued. Patient not tachycardic. As she has been unable to take her medication/analgesic for her right arm fracture, she was administered morphine as well as ondansetron. Comprehensive workup was pursued. She has had prior abdominal surgeries CT of the abdomen and pelvis with IV contrast will be obtained to help rule out partial's versus complete obstruction of the bowel. I reviewed her laboratory work and she has slight leukocytosis of 12.1, compared to the prior labs, has been higher and more frequent. Hemoglobin 14.8, hematocrit 41.8. Electrolyte panel shows no evidence of dehydration. She has normal sodium of 139 and potassium normal at 4.5 with chloride 99. Glucose is elevated at 160. Lipase normal at 44. Hence I do not think she has a pancreatitis. Urinalysis shows contaminated specimen with 10-25 squamous epithelial cells. I do feel that this is probably a contaminated specimen and she has already been on antibiotics so I do not feel that she requires more. Also of significance is her CT radiology report which shows no acute process. The bowel is not thickened or obstructed. She has fatty liver infiltration. Upon repeat examination, she is resting comfortably on the cot at approximately 1350. I feel she can be discharged to follow-up. She states she has Zofran at home which has been ineffective. I wrote her prescription for Phenergan 25 mg as she declined suppositories. At this point in time, she was told to give her stomach a rest tonight, and start a clear liquid diet tomorrow and advance as tolerated. Return instructions to the emergency department were reviewed. Disposition is discharged home in stable condition. History & Record Review Discussion w/independent historian: Patient and Significant other Additional record(s) reviewed:: Prior labs Lab Data Attestation: I reviewed the patient's lab results. Labs: Laboratory Results - last 24 hr 12/29/24 12/29/24 11:23 11:50 WBC 12.1 H RBC 4.64 Hgb 14.8 Hct 41.8 MCV 90.1 MCH 31.9 MCHC 35.4 RDW Std Deviation 43.6 RDW Coeff of Kenji 13.4 Plt Count 389 MPV 9.8 Immature Gran % (Auto) 0.300 Neut % (Auto) 67.7 Lymph % (Auto) 23.5 Ector % (Auto) 7.2 Eos % (Auto) 0.8 Baso % (Auto) 0.5 Absolute Neuts (auto) 8.2 H Absolute Lymphs (auto) 2.85 Nucleated RBC % 0 Sodium 139 Potassium 4.5 Chloride 99 Carbon Dioxide 23.2 Anion Gap 17 H BUN 12 Creatinine 0.69 L Estim Creat Clear Calc 81.88 Est GFR (MDRD) Non-Af 101 BUN/Creatinine Ratio 17.0 Glucose 160 H Calcium 9.7 Total Bilirubin 2.15 H AST 102 H ALT 153 H Alkaline Phosphatase 112 H Total Protein 8.1 Albumin 4.3 Globulin 3.8 Albumin/Globulin Ratio 1.1 Lipase 44 Urine Color Yellow Urine Clarity Cloudy Urine pH 6.5 Ur Specific [place] 1.010 Urine Protein 30 H Urine Glucose (UA) Normal Urine Ketones 15 H Urine Occult Blood 10 H Urine Nitrite Negative Urine Bilirubin 1 H Urine Urobilinogen 8 H Ur Leukocyte Esterase 100 H Urine RBC 0 SEEN Urine WBC 5-10 SEEN Ur Squamous Epith Cells 10-25 SEEN Urine Bacteria 2+ Urine Mucus 0 SEEN Radiography Diagnostic Testing: Clinical Impression(s) from Imaging Studies Abdomen/Pelvis CT 12/29/24 11:12 IMPRESSION: 1. Serpiginous vessels surrounding the uterus consistent with pelvic congestion. 2. Bilateral ovarian cysts, not significantly changed. 3. The appearance of the lung bases is unchanged. 4. Fatty liver infiltration. Reading Location: [id number] Discharge Plan Triage Chief Complaint: Nausea/Vomiting ED Provider: Freedom Alexander Dx/Rx/DC Orders Clinical Impression: Nausea and vomiting, Abdominal pain Instructions: ED Abdominal Pain Unkn Cause Fem, ED Diet Vomiting Diarrhea, ED Vomiting (Adult) Prescriptions: New promethazine 25 mg tablet 25 mg PO Q6H PRN (Reason: nausea and vomiting) Qty: 15 0RF No Action atorvastatin 20 mg tablet 20 mg PO QHS loratadine 10 mg tablet 10 mg PO DAILY omeprazole 40 mg capsule,delayed release(DR/EC) 40 mg PO DAILY sumatriptan succinate 6 mg/0.5 mL pen injector 6 mg subcut Q1-4H PRN (Reason: migraine headache) Rx Instructions: do not exceed 2 doses in a 24 hour period propranolol 160 MG capsule,extended release 24 hr 160 mg PO DAILY famotidine 20 MG tablet 20 mg PO BID Qty: 60 0RF naproxen 500 MG tablet 500 mg PO BID Qty: 14 0RF trazodone 50 mg tablet 50 mg PO QHS ondansetron HCl 4 mg tablet 4 mg PO Q6H PRN (Reason: nausea and vomiting) gabapentin 300 mg capsule 300 mg PO TID Primary Care Provider: Osvaldo Banks Referrals: Osvaldo Banks MD [Primary Care Provider, Family Practice] - 3-5 Days if not improving Activity Restrictions/Additional Instructions: Medication as directed. Take Phenergan instead of Zofran for nausea and vomiting if Zofran is ineffective. Give your stomach a rest today and start a clear liquid diet, advance as tolerated. Return with new or worsening symptoms. Print Language: Cymraes Disposition Disposition: Home, Self Care
[2024-12-29] MEDS: 0.9% Normal Saline (1000mL) 1,000 ML 999 ML IV (11:20)
[2024-12-29 11:31] LABS: Hematocrit 41.8 % (37-47); Hemoglobin 14.8 g/dL (12.0-15.0); Immature Granulocytes Count 0.040 X10^3/uL (0.0-0.0); Mean Corp Hgb Conc 35.4 g/dL (32-36); Mean Corpuscular Volume 90.1 fL (81-99); Mean Platelet Vol. 9.8 fl (6.2-12.0); NRBC Flagged by Analyzer 0 % (0-5); Platelet Count 389 K/mm3 (150-450); RBC Distribution Width CV 13.4 % (11.6-14.6); RBC Distribution Width SD 43.6 fl (35.1-43.9); Red Blood Count 4.64 M/mm3 (4.2-5.4); White Blood Count 12.1 K/mm3 (4.4-11.0)
[2024-12-29 11:54] LABS: AST(SGOT) 102 U/L (<=31); Alanine Aminotransfer ALT/SGPT 153 U/L (<=34); Albumin, Serum 4.3 g/dL (3.5-5.0); Alkaline Phosphatase 112 U/L (35-104); Anion Gap 17 (5-15); BUN 12 mg/dL (4-19); BUN/Creat Ratio 17.0 RATIO (10-20); Calcium,Total 9.7 mg/dL (7.6-11.0); Carbon Dioxide 23.2 mmol/L (21.0-32.0); Chloride 99 mmol/L (98-108); Estimated Creatinine Clearance 81.88 ml/min (50-250); Globulin 3.8 g/dL (2.2-4.2); Glucose 160 mg/dL (70-99); Lipase 44 U/L (13-75); Potassium 4.5 mmol/L (3.3-5.1)
[2024-12-29 11:58] LABS: Mucous, Urine 0 SEEN /hpf (<or=2+); Red Blood Cells-Urine 0 SEEN /hpf (0-5)
[2024-12-29 12:03] LABS: Color, Urine Yellow (Yellow); Glucose, Dipstick Normal (Normal); Ketone-Dipstick 15 mg/dl (Negative); Leukocyte Esterase-Dipstick 100 /ul (Negative); Nitrite-Dipstick Negative (Negative); Occult Blood-Urine 10 /ul (Negative); Protein-Dipstick 30 mg/dl (Negative); Specific Gravity, Urine 1.010 (1.002-1.030)
[2024-12-29 12:25] LABS: Urine Bilirubin Dipstick 1 mg/dL (Negative)
[2024-12-29 12:26] LABS: Squamous Epithelial Cells - UA 10-25 SEEN /hpf (5-10)
[2024-12-29 12:57] VITALS: BP 152/90; PULSE 96; O2SAT 98
[2024-12-29 13:54] VITALS: BP 152/90; PULSE 96; RESP 18; TEMP 37; O2SAT 98
== END 2024-12-29 13:59 | disposition home or self-care (01) ==
PROVIDERS: Emergency Provider Emergency Medicine; PCP Family Medicine; Visit Provider Emergency Medicine
DX: R11.2 Nausea with vomiting, unspecified (principal); R10.9 Unspecified abdominal pain; K76.0 Fatty (change of) liver, not elsewhere classified; S42.301D Unspecified fracture of shaft of humerus, right arm, subsequent encounter for fracture with routine healing; W19.XXXD Unspecified fall, subsequent encounter; I10 Essential (primary) hypertension; E78.2 Mixed hyperlipidemia; I25.2 Old myocardial infarction; K21.9 Gastro-esophageal reflux disease without esophagitis; G43.909 Migraine, unspecified, not intractable, without status migrainosus; Z87.19 Personal history of other diseases of the digestive system; Z87.440 Personal history of urinary (tract) infections; Z79.899 Other long term (current) drug therapy; Z87.891 Personal history of nicotine dependence
CPT/HCPCS: 74177; 80053; 81001; 83690; 85025; 96361; 96374; 96375; 99282; Q9967; A4216; J2405

== ENCOUNTER 2025-01-25 17:30 | Emergency (ER) | payer MEDICAID, SELFPAY ==
[2025-01-25 17:30] VITALS: BP 156/136; PULSE 125; RESP 18; TEMP 37.1; O2SAT 99; BMI 26.2
[2025-01-25] MEDS: 0.9% Normal Saline (1000mL) 1,000 ML 999 ML IV (17:48)
[2025-01-25 17:53] LABS: Hematocrit 48.3 % (37-47); Hemoglobin 16.8 g/dL (12.0-15.0); Immature Granulocytes Count 0.030 X10^3/uL (0.0-0.0); Mean Corp Hgb Conc 34.8 g/dL (32-36); Mean Corpuscular Volume 89.3 fL (81-99); Mean Platelet Vol. 10.3 fl (6.2-12.0); NRBC Flagged by Analyzer 0 % (0-5); Platelet Count 395 K/mm3 (150-450); RBC Distribution Width CV 12.8 % (11.6-14.6); RBC Distribution Width SD 42.2 fl (35.1-43.9); Red Blood Count 5.41 M/mm3 (4.2-5.4); White Blood Count 13.8 K/mm3 (4.4-11.0)
--- NOTE | 2025-01-25 17:55 | CT_ITS ---
PROCEDURE: ABDOMEN/PELVIS W IV CONT ONLY 01/25/2025 REASON FOR EXAM: ABD PAIN, N/V TECHNIQUE: Procedure Code: [id number] Modality: CT Procedure: ABDOMEN/PELVIS W IV CONT ONLY Coronal and Sagittal reconstruction series were provided. CONTRAST: 100 mL of Isovue 370 One or more dose reduction techniques were used (e.g., Automated exposure control, adjustment of the mA and/or kV according to patient size, use of iterative reconstruction technique. RADIATION DOSE SUMMARY: DLP: 742 mGycm COMPARISON: 12/29/2024 FINDINGS: Limited sections of the lung bases demonstrate no focal pulmonary mass or consolidations. 4-5 mm right base pulmonary nodule, grossly unchanged. The liver, spleen, pancreas, and both adrenal glands demonstrate no acute findings. Hepatic steatosis. The gallbladder is surgically removed. The stomach is unremarkable. The small bowel loops are not dilated. The appendix is not clearly identified, although there are no secondary signs of appendicitis. No colonic obstruction. Colonic diverticulosis without acute diverticulitis. There is no free air or significant free fluid. The kidneys are unremarkable. Mildly thickened urinary bladder wall which may reflect cystitis vs nondistention; consider correlation with urinalysis. Numerous dilated vessels surrounding the uterus consistent with pelvic congestion. Bilateral tubal ligations. 1.9 x 1.7 cm cyst within the right ovary and 3.9 x 3.3 cm cyst within left ovary. No significant lymphadenopathy. The aorta and IVC demonstrate no acute findings. Mild atherosclerosis abdominal vasculature. Visualized osseous structures demonstrate no acute abnormality. CT/Abdomen/Pelvis W IV Cont ONLY IMPRESSION: Mildly thickened urinary bladder wall which may reflect cystitis vs nondistenti on; consider correlation with urinalysis. Colonic diverticulosis without acute diverticulitis. Numerous dilated vessels surrounding the uterus consistent with pelvic congesti on. Bilateral tubal ligations. 1.9 x 1.7 cm cyst within the right ovary and 3.9 x 3.3 cm cyst within left ovary. Reading Location: [id number]
--- OUTSIDE RECORDS SUMMARY | 2025-01-25 18:00 | XMS RPT_ITS | CCD ---
Author Organization [facility] Care Team Providers Care Child And Family Therapist Name Role Phone Osvaldo Sue MD Primary Care Provider Osvaldo Sue MD Primary Care Provider Christopher HR RECEPTIONIST.RN PSYCHMonica Unavailable Cheryl Sahu PA-C Unavailable Dr. Osvaldo Sue MD Primary Care Provider Dr. Louie Bacon DO Emergency Provider Dr. Len Lafleur DO Admit Provider Unavail able Dr. Len Lafleur DO Attending Provider Unav ailable Dr. Osvaldo Sue MD Primary Care Provider Dr. Louie Bacon DO Emergency Provider Dr. Len Lafleur DO Admit Provider Unavail able Dr. Len Lafleur DO Other Provider Unavail able Dr. Austin Mendez DO Attending Provider Dr. Austin Mendez DO Other Provider Christopher HR RECEPTIONIST.Monica VILLASEÑOR Unavailable Cheryl Sahu PA-C Unavailable Cheryl Sahu PA-C Unavailable Dr. Osvaldo Sue MD Primary Care Physician Freedom Alexander MD Emergency Department Physician Osvaldo Sue Primary Care Unavailable Cheryl Cabezas Referring Unavailable Cheryl Cabezas Attending Unavailable Osvaldo Sue Primary Care Unavailable Freedom Alexander Attending Unavailable Len Lafleur Admitting Unavailable Bonny, Osvaldo Primary Care Unavailable Austin Mendez Attending Unavailable Len Lafleur Consulting Unavailable Len Lafluer Admitting Unavailable Bonny, Osvaldo Primary Care Unavailable Len Lafleur Attending Unavailable Len Lafleur Consulting Unavailable Austin Mendez Consulting Unavailable Austin Mendez Attending Unavailable RANDY QUILES Admitting Unavailable OSVALDO SUE MD Referring Unavailable OSVALDO SUE MD Consulting Unavailable RANDY QUILES Attending Unavailable RANDY QUILES Primary Care Unavailable PROVIDER, UNKNOWN Consulting Unavailable SANDIP AG Admitting Unavailable OSVALDO SUE MD Referring Unavailable [...] Referring Unavailable OSVALDO SUE MD Consulting Unavailable COVERKADEN GUSTAFSON MD Admitting Unavailable COVERJANAY, KADEN CHICAS Attending Unavailable COVERKADEN GUSTAFSON MD Primary Care Unavailable PROVIDER, UNKNOWN Consulting Unavailable CHERYL SAHU Referring Unavailable OSVALDO SUE Primary Care Unavailable JERRY ROMO Attending Unavailable OSVALDO SUE Primary Care Unavailable CHERYL SAHU Attending Unavailable OSVALDO SUE Primary Care Unavailable CHERYL SAHU Referring Unavailable OSVALDO SUE Primary Care Unavailable CHERYL SAHU Referring Unavailable OSVALDO SUE A Primary Care Unavailable MONICA MEANS Referring Unavailable ARETHA PATTERSON Attending Unavailab carmel SUE, OSVALDO A Primary Care Unavailable ARETHA PATTERSON Attending Unavailab carmel SUE OSVALDO A Primary Care Unavailable BONNY, OSVALDO A Primary Care Unavailable CHERYL SAHU Referring Unavailable CHERYL SAHU Referring Unavailable OSVALDO SUE Primary Care Unavailable CHERYL SAHU Attending Unavailable OSVALDO SUE A Primary Care Unavailable CHERYL SAHU Attending Unavailable BONNY, OSVALDO A Primary Care Unavailable BONNY, OSVALDO A Primary Care Unavailable CHERYL SAHU Attending Unavailable BONNY, OSVALDO A Primary Care Unavailable NATE MEL Referring Unavailable BONNY, OSVALDO A Primary Care Unavailable BONNY, OSVALDO A Primary Care Unavailable CHERYL SAHU Attending Unavailable LA JACQUES Attending Unavailable CHERYL SAHU Referring Unavailable BONNY, OSVALDO A Primary Care Unavailable LA JACQUES Referring Unavailable BONNY, OSVALDO A Primary Care Unavailable CHERYL SAHU Attending Unavailable BONNY, OSVALDO A Primary Care Unavailable BONNY, OSVALDO A Primary Care Unavailable BRINDAALONZOA Referring Unavailable BONNY, OSVALDO A Primary Care Unavailable Medications Current Medications Medication Drug Class(es) Dates Sig (Normalized) Sig (Original) amoxicillin 875 mg / clavulanate 125 mg oral tablet (3 sources) Penicillin-class Antibacterial Start: 03-14-2024 End: 03-21-2024 take 1 tablet by mouth twice daily amoxicillin-clavula mychal potassium (AUGMENTIN) 875-125 mg per tablet Take 1 tablet by mouth two times a day for 7 days. 14 tablet 03/14/2024 03/21/2024 Active atorvastatin 20 mg oral tablet (20 sources) HMG-CoA Reductase Inhibitor Start: 07-18-2021 End: 09-29-2024 take 1 tablet by mouth once daily at bedtime for hyperlipidemia atorvastatin (LIPITOR) 20 mg tablet Take 1 tablet by mouth daily at bedtime. For cholesterol. 30 tablet 5 10/01/2024 Active Comment on above: Take 1 tablet by lorri th daily at bedtime. For cholesterol. celecoxib 200 mg oral capsule (10 sources) Nonsteroidal Anti-inflammatory Drug Start: 10-21-2020 End: 11-13-2021 take 1 capsule by mouth twice daily celecoxib (CELEBREX) 200 mg capsule Indications: Primary osteoarthritis of right knee Take 1 capsule by mouth twice daily. 60 capsule 3 10/21/2020 11/13/2021 Discontinued Comment on above: Take 1 capsule by mo [facility] twice daily. clotrimazole 10 mg/ml topical cream (1 source) Azole Antifungal Start: 10-06-2021 End: 10-20-2021 clotrimazole (LOTRIMIN, CLOTRIM) 1 % cream Indications: Tinea cruris Apply to affected area twice daily for 14 days. 45 g 0 10/06/2021 10/20/2021 Active Comment on above: Apply to affected ar ea twice daily for 14 days. cyclobenzaprine hydrochloride 10 mg oral tablet (20 sources) Muscle Relaxant Start: 08-22-2024 End: 10-24-2024 take 1 tablet by mouth every eight hours as needed cyclobenzaprine (FLEXERIL) 10 mg tablet Take 1 tablet by mouth three times a day as needed for muscle spasm. 20 tablet 1 10/24/2024 Active Start: 07-18-2021 End: 08-09-2024 take 1 tablet by mouth twice daily as needed Cyclobenzaprine 10 mg tablet Discontinued 10 mg PO TWICE A DAY as needed August 19, 2022 12:00am August 09, 2024 7:25pm Comment on above: Take 1 tablet by lorri th twice daily as needed for muscle spasm. Take 1 tablet by lorri th two times a day as needed for muscle spasm. escitalopram 20 mg oral tablet (20 sources) Serotonin Reuptake Inhibitor Start: take 1 tablet by mouth once daily escitalopram oxalate (LEXAPRO) 20 mg tablet Take 1 tablet by mouth once daily. 30 tablet 5 04/11/2024 Active Start: 03-14-2024 End: 04-11-2024 take 1 tablet by mouth once daily escitalopram oxalate (LEXAPRO) 10 mg tablet Take 1 tablet by mouth once daily. 30 tablet 5 03/14/2024 04/11/2024 Discontinued (Adjust Sig - Block E-Cancel) famotidine 20 mg oral tablet (20 sources) Histamine-2 Receptor Antagonist Start: 05-04-2019 End: 02-29-2024 take 1 tablet by mouth twice daily Comment on above: Take 1 tablet by lorri th twice daily. Take 1 tablet by lorri th two times a day. gabapentin 300 mg oral capsule (20 sources) Anti-epileptic Agent Start: 05-15-2024 End: 12-02-2024 take 1 capsule by mouth three times daily Start: 05-02-2024 End: 07-31-2024 take 1 capsule by mouth twice daily gabapentin (NEURONTIN) 300 mg capsule Take 1 capsule by mouth two times a day for 90 days. 60 capsule 2 05/02/2024 05/15/2024 Discontinued lidocaine 0.05 mg/mg medicated patch (1 source) Antiarrhythmic, Amide Local Anesthetic Start: 06-08-2022 End: 06-22-2022 lidocaine (LIDODERM) 5 % Indications: Acute pain of left shoulder Apply 1 Patch as directed once daily for 14 days. Remove old patch prior to placing new patch. Location: Place on for 12 hours and then take off for 12 hours before placing a new patch on 14 Patch 0 06/08/2022 06/22/2022 Active Comment on above: Apply 1 Patch as dir ected once daily for 14 days. Remove old patch prior to placing new patch. Location: Place on for 12 hours and then take off for 12 hours before placing a new patch on loratadine 10 mg oral tablet (20 sources) Start: 07-18-2021 End: 02-29-2024 take 1 tablet by mouth once daily Comment on above: Take 1 tablet by lorri th once daily. losartan potassium 50 mg oral tablet (20 sources) Angiotensin 2 Receptor Alice Start: 02-29-2024 take 1 tablet by mouth once daily losartan (COZAAR) 50 mg tablet Take 1 tablet by mouth once daily. 30 tablet 1 02/29/2024 Active metroNIDAZOLE 500 mg oral tablet (3 sources) Nitroimidazole Antimicrobial Start: 11-16-2021 End: 11-23-2021 take 1 tablet by mouth twice daily metroNIDAZOLE (FLAGYL) 500 mg tablet Take 1 tablet by mouth twice daily for 7 days. 14 tablet 0 11/16/2021 11/23/2021 Active Start: 08-20-2021 End: 08-27-2021 take 1 tablet by mouth twice daily metroNIDAZOLE (FLAGYL) 500 mg tablet Take 1 tablet by mouth twice daily for 7 days. 14 tablet 0 08/20/2021 08/27/2021 Active Comment on above: Take 1 tablet by lorri th twice daily for 7 days. Miconazole (1 source) Azole Antifungal Start: 025 End: 025 apply 1 dose topically once as needed, then apply 1 dose topically twice daily as needed Miconazole Nitrate (MONISTAT 1 COMBO PACK) kit Use 1 each vaginally one time only for 1 dose. Apply topical cream externally BID prn x 7 days 1 kit 08/20/2024 08/20/2024 Active naproxen 500 mg oral tablet (3 sources) Nonsteroidal Anti-inflammatory Drug Start: take 1 tablet by mouth twice daily nitrofurantoin, macrocrystals 25 mg / nitrofurantoin, monohydrate 75 mg oral capsule (2 sources) Nitrofuran Antibacterial Start: End: take 1 capsule by mouth twice daily nitrofurantoin monohydrate and macrocrystal (MACROBID) 100 mg capsule Indications: Urinary tract infection without hematuria, site unspecified Take 1 capsule by mouth two times a day for 7 days. 14 capsule 2024 03/12/2024 Active Start: 10-06-2021 End: 10-11-2021 take 1 capsule by mouth twice daily nitrofurantoin monohydrate and macrocrystal (MACROBID) 100 mg capsule Indications: Acute cystitis without hematuria Take 1 capsule by mouth twice daily for 5 days. 10 capsule 0 10/06/2021 10/11/2021 Active Comment on above: Take 1 capsule by [facility] twice daily for 5 days. omeprazole 40 mg delayed release oral capsule (20 sources) Proton Pump Inhibitor Start: 2 End: take 1 capsule by mouth once daily omeprazole (PRILOSEC) 40 mg capsule Take 1 capsule by mouth once daily. 30 capsule 5 05/09/2024 Active Comment on above: Take 1 capsule by [facility] once daily. ondansetron 4 mg oral tablet (20 sources) Serotonin-3 Receptor Antagonist Start: 5 take 1 tablet by mouth every six hours as needed for nausea and vomiting Start: 01-05-2021 End: 02-29-2024 take 1 tablet by mouth every six hours as needed ondansetron orally disintegrating (ZOFRAN ODT) 4 mg disintegrating tablet Take 1 tablet by mouth every 6 hours as needed for nausea/vomiting. 16 tablet 01/05/2021 02/29/2024 Discontinued Comment on above: Take [address] [facility] every 6 hours as needed for nausea/vomiting. predniSONE 10 mg oral tablet (3 sources) Start: 10-25-19 End: 11-03-19 predniSONE (DELTASONE) 10 mg tablet Take 4 tabs daily for 3 days, then 2 tabs daily for 3 days, then 1 tab daily for 3 days with food. 21 tablet 10/24/2024 11/02/2024 Active promethazine hydrochloride 25 mg oral tablet (4 sources) Phenothiazine Start: 12-30-19 take 1 tablet by mouth every six hours as needed for nausea and vomiting Start: 05-03-2019 End: 05-04-2019 take 25 mg rectal route every six hours as needed for nausea Promethazine 25 MG suppository Discontinued 25 mg RECTAL EVERY 6 HOURS as needed for Nausea May 03, 2019 1:00am May 04, 2019 9:56am 24 hr propranolol hydrochloride 160 mg extended release oral capsule (20 sources) beta-Adrenergic Alice Start: 05-03-2019 End: 09-03-2024 take 1 capsule by mouth once daily Comment on above: Take 1 capsule by [facility] once daily. 0.5 ml SUMAtriptan 12 mg/ml auto-injector (20 sources) Serotonin-1b and Serotonin-1d Receptor Agonist Start: 08-19-2022 Start: 06-10-2021 End: 02-29-2024 inject 0.5 mL by subcutaneous injection every hour as needed for headache SUMAtriptan (IMITREX STATDOSE PEN) 6 mg/0.5 mL pen Inject 0.5 mL subcutaneously as needed for migraine headache (see administration instructions). May repeat in 1 hour if needed. Max of 12 mg in 24 hrs. 3 mL 5 02/29/2024 Active Comment on above: Inject 0.5 mL subcut aneously as needed for migraine headache (see administration instructions). May repeat in 1 hour if needed. Max of 12 mg in 24 hrs. traZODone hydrochloride 50 mg oral tablet (20 sources) Serotonin Reuptake Inhibitor Start: 04-09-19 End: 09-30-19 take 1 tablet by mouth once daily at bedtime traZODone (DESYREL) 50 mg tablet Take 1 tablet by mouth daily at bedtime. 90 tablet 1 10/01/2024 Active Completed/Discontinued Medications Medication Drug Class(es) Dates Sig (Normalized) Sig (Original) amitriptyline hydrochloride 25 mg oral tablet (17 sources) Tricyclic Antidepressant Start: 08-19-2022 End: 08-09-2024 take 1 tablet by mouth at bedtime Amitriptyline 25 mg tablet Discontinued 25 mg PO AT BEDTIME August 19, 2022 12:00am August 09, 2024 7:19pm Start: 07-23-2022 take 1 tablet by lorri th once daily at bedtime amitriptyline (ELAVIL) 25 mg tablet Take 1 tablet by mouth daily at bedtime. 30 tablet 5 07/23/2022 Active Comment on above: Take 1 tablet by lorri th daily at bedtime. azithromycin 250 mg oral tablet (4 sources) Macrolide Antimicrobial Start: 06-06-2022 End: 06-11-2022 azithromycin (ZITHROMAX Z-DONATO) 250 mg tablet Take 2 tablets day one, then, 1 tablet daily until gone. 6 tablet 06/06/2022 06/11/2022 Comment on above: Take 2 tablets day o ne, then, 1 tablet daily until gone. ciprofloxacin 3 mg/ml / dexamethasone 1 mg/ml otic suspension (1 source) Corticosteroid, Quinolone Antimicrobial Start: 03-21-2024 End: 03-21-2024 ciprofloxacin-dexAMETHa sone (CIPRODEX) 0.3-0.1 % otic suspension Use 4 Drops in the left ear two times a day. 7.5 mL 03/21/2024 03/21/2024 Discontinued estradiol 0.1 mg/ml vaginal cream (20 sources) Estrogen Start: 08-19-2022 End: 08-09-2024 Estradiol (Estrace) 0.01 % (0.1 mg/gram) cream Discontinued 0.5 NMA VAGINAL .3XW August 19, 2022 12:00am August 09, 2024 7:26pm Start: 11-13-2021 estradiol (EST RACE) 0.01 % (0.1 mg/gram) vaginal cream Use 0.5g vaginally at bedtime for 2 weeks then 3 times/weeks for maintenance. 42.5 g 2 11/13/2021 Active Comment on above: Use 0.5g vaginally a t bedtime for 2 weeks then 3 times/weeks for maintenance. 12 hr guaiFENesin 600 mg extended release oral tablet (14 sources) Start: 07-24-19 End: 02-29-20 take 2 tablets by mouth twice daily as needed guaiFENesin (MUCINEX) 600 mg 12 hr tablet Take 2 tablets by mouth twice daily as needed for cold/allergy symptoms. 60 tablet 2 07/23/2022 02/29/2024 Discontinued Comment on above: Take 2 tablets by mo [facility] twice daily as needed for cold/allergy symptoms. hydrocortisone 10 mg/ml / neomycin 3.5 mg/ml / polymyxin b 56901 unt/ml otic suspension (3 sources) Aminoglycoside Antibacterial, Polymyxin-class Antibacterial, Corticosteroid Start: 03-21-20 End: 04-11-19 neomycin-polymyxin- hydrocortisone (CORTISPORIN) 3.5-10,000-1 mg/mL-unit/mL-% otic suspension Use 3 Drops in the left ear four times daily. 10 mL 03/21/2024 04/11/2024 Discontinued ketoconazole 20 mg/ml topical cream (20 sources) Azole Antifungal Start: 08-18-19 End: 02-29-20 ketoconazole (NIZORAL) 2 % cream Apply to affected area once daily. 30 g 1 08/17/2021 02/29/2024 Discontinued Comment on above: Apply to affected ar ea once daily. nystatin 100 unt/mg topical powder (20 sources) Polyene Antifungal Start: 08-18-19 End: 02-29-20 nystatin (MYCOSTATIN) powder Apply 1 application to affected area four times daily. 60 g 1 06/04/2022 02/29/2024 Discontinued Comment on above: Apply 1 application to affected area four times daily. sertraline 100 mg oral tablet (20 sources) Serotonin Reuptake Inhibitor Start: 07-03-19 End: 08-10-19 take 1 tablet by mouth once daily Sertraline 100 mg tablet Discontinued 100 mg PO DAILY August 19, 2022 12:00am August 09, 2024 7:27pm Start: 06-04-2022 End: 07-02-2022 sertraline (ZOLOFT) 50 mg ta blet Indications: Generalized anxiety disorder , Situational depression 1/2 a tablet by mouth once a day for 10 days then go to one tablet daily 30 tablet 5 06/04/2022 07/02/2022 Discontinued Comment on above: 1/2 a tablet by mout h once a day for 10 days then go to one tablet daily Take 1 tablet by lorri th once daily. Problems Active Problems Problem Classification Problem Date Documented Date Episodic/Chronic Abdominal pain (20 sources) Pain in pelvis; Translations: [Pelvic and perineal pain] Onset: 10-06-2021 Episodic Adjustment disorders (20 sources) Reactive depression (situational); Translations: [Adjustment disorder with depressed mood] Onset: 06-04-2022 Chronic Anxiety disorders (20 sources) Generalized anxiety disorder; Translations: [Generalized anxiety disorder] Onset: 07-24-2014 Chronic Aortic; peripheral; and visceral artery aneurysms (20 sources) Aneurysm of left subclavian artery; Translations: [Aneurysm of other specified arteries] Onset: 07-21-2022 Chronic Chronic obstructive pulmonary disease and bronchiectasis (1 source) Bronchitis; Translations: [Bronchitis, not specified as acute or chronic] Episodic Complications of surgical procedures or medical care (3 sources) Postoperative wound infection-superficial; Translations: [Infection following a procedure, other surgical site, initial encounter] 11-18-2018 Episodic Coronary atherosclerosis and other heart disease (20 sources) History of myocardial infarction; Translations: [Old myocardial infarction] Onset: 07-11-2019 07-11-2019 Chronic Disorders of lipid metabolism (3 sources) Mixed hyperlipidemia; Translations: [Mixed hyperlipidemia] 08-19-2022 Chronic Esophageal disorders (20 sources) Gastroesophageal reflux disease without esophagitis; Translations: [Gastro-esophageal reflux disease without esophagitis] Onset: 12-12-2020 Chronic Essential hypertension (20 sources) Essential hypertension; Translations: [Essential (primary) hypertension] Onset: 07-24-2014 Chronic Fracture of upper limb (2 sources) Unspecified fracture of upper end of right humerus, initial encounter for closed fracture; Translations: [Unspecified fracture of shaft of humerus, right arm, initial encounter for closed fracture] Onset: 12-26-2024 Episodic Genitourinary symptoms and ill-defined conditions (20 sources) Mixed urinary incontinence; Translations: [Mixed incontinence] Onset: 11-17-2021 Chronic Headache; including migraine (20 sources) Migraine; Translations: [Migraine, unspecified, not intractable, without status migrainosus] Onset: 10-06-2018 2020 Chronic Headache; including migraine (1 source) Headache; including migraine; Translations: [Chronic daily headache] Onset: 05-02-2024 Hepatitis (20 sources) Steatohepatitis; Translations: [Nonalcoholic steatohepatitis (ANN)] Onset: 08-17-2021 03-15-2024 Chronic Hypertension with complications and secondary hypertension (2 sources) Hypertensive urgency ; Translations: [Hypertensive urgency] Onset: 02-29-2024 02-29-2024 Chronic Mycoses (1 source) Tinea cruris; Translations: [Tinea cruris] Episodic Nausea and vomiting (2 sources) Nausea and vomiting; Translations: [Nausea with vomiting, unspecified] Onset: 01-02-2025 12-29-2024 Episodic Nonspecific chest pain (4 sources) Chest pain; Translations: [Chest pain, unspecified] Episodic Open wounds of head; neck; and trunk (1 source) Open wound of auditory canal; Translations: [Laceration without foreign body of unspecified ear, initial encounter] 03-21-2024 Episodic Osteoarthritis (3 sources) Osteoarthritis of right knee joint; Translations: [Unilateral primary osteoarthritis, right knee] 04-16-2020 Chronic Other connective tissue disease (2 sources) Pain of right forearm; Translations: [Pain in right forearm] 01-19-2024 Episodic Other connective tissue disease (1 source) Plantar fasciitis; Translations: [Plantar fascial fibromatosis] 10-24-2024 Episodic Other connective tissue disease (1 source) Plantar fascial fibromatosis; Translations: [Plantar fasciitis] Onset: 10-24-2024 Episodic Other liver diseases (20 sources) Steatosis of liver; Translations: [Fatty (change of) liver, not elsewhere classified] Onset: 08-17-2021 Chronic Other liver diseases (2 sources) Elevated liver enzymes level; Translations: [Abnormal levels of other serum enzymes] 03-14-2024 Episodic Other lower respiratory disease (20 sources) Multiple nodules of lung; Translations: [Other nonspecific abnormal finding of lung field] Onset: 2020 Episodic Other lower respiratory disease (2 sources) Cough; Translations: [Cough, unspecified type] Episodic Other nervous system disorders (2 sources) Other chronic pain; Translations: [Other chronic pain] Onset: 10-24-2024 Chronic Other nervous system disorders (1 source) Abnormal gait; Translations: [Unspecified abnormalities of gait and mobility] 05-02-2024 Episodic Other non-traumatic joint disorders (1 source) Shoulder pain; Translations: [Pain in left shoulder] Episodic Other non-traumatic joint disorders (1 source) Pain in left shoulder; Translations: [Pain in joint, shoulder region] 06-08-2022 Episodic Other non-traumatic joint disorders (2 sources) Pain in elbow; Translations: [Pain in right elbow] 01-19-2024 Episodic Other non-traumatic joint disorders (2 sources) Pain in right shoulder; Translations: [Acute pain of right shoulder] Onset: 01-09-2025 Episodic Other nutritional; endocrine; and metabolic disorders (1 source) Hypercalcemia; Translations: [Hypercalcemia] Chronic Other screening for suspected conditions (not mental disorders or infectious disease) (13 sources) Endometrium thickened; Translations: [Abnormal findings on diagnostic imaging of other specified body structures] Onset: 08-29-2024 08-29-2024 Chronic Other skin disorders (1 source) Loss of hair; Translations: [Nonscarring hair loss, unspecified] Episodic Other skin disorders (1 source) Skin lesion; Translations: [Disorder of the skin and subcutaneous tissue, unspecified] 04-23-2024 Episodic Other upper respiratory infections (1 source) Bacterial sinusitis; Translations: [Chronic sinusitis, unspecified] 03-14-2024 Chronic Prolapse of female genital organs (20 sources) Prolapse of female genital organs; Translations: [Female genital prolapse, unspecified] Onset: 08-17-2021 08-17-2021 Chronic Residual codes; unclassified (2 sources) Contact with and (suspected) exposure to mold (toxic); Translations: [Contact with and (suspected) exposure to mold] Episodic Screening and history of mental health and substance abuse codes (20 sources) Ex-smoker; Translations: [Personal history of nicotine dependence] Onset: 2020 Episodic Spondylosis; intervertebral disc disorders; other back problems (20 sources) Thoracic back pain; Translations: [Pain in thoracic spine] Onset: 05-02-2024 Episodic Sprains and strains (3 sources) Sprain of medial collateral ligament of right knee, initial encounter; Translations: [Sprain of medial collateral ligament of right knee] 04-16-2020 Episodic Substance-related disorders (20 sources) Smoker; Translations: [Nicotine dependence, unspecified, uncomplicated] Onset: 2020 Chronic Unclassified (3 sources) Patient encounter status 06-05-2024 Viral infection (1 source) Viral disease; Translations: [Viral infection, unspecified] Episodic Past or Other Problems Problem Classification Problem Date Documented Date Episodic/Chronic Acute myocardial infarction (20 sources) Myocardial infarction; Translations: [Acute myocardial infarction, unspecified] Resolved: 07-24-2014 07-24-2014 Chronic Allergic reactions (20 sources) Environmental allergy; Translations: [Other allergy status, other than to drugs and biological substances] Onset: 10-06-2018 2020 Episodic Deficiency and other anemia (20 sources) Anemia; Translations: [Anemia, unspecified] Onset: 07-24-2014 Episodic Deficiency and other anemia (1 source) Anemia, unspecified; Translations: [Anemia, unspecified type] Onset: 07-24-2014 Episodic Diabetes mellitus without complication (20 sources) High hemoglobin A1c level; Translations: [Other abnormal glucose] Onset: 07-18-2021 Episodic Fluid and electrolyte disorders (15 sources) Dehydration; Translations: [Dehydration] Onset: 08-13-2024 08-09-2024 Episodic Headache; including migraine (4 sources) Chronic daily headache; Translations: [Chronic daily headache] Onset: 05-02-2024 04-11-2024 Episodic Immunizations and screening for infectious disease (2 sources) Suspected disease caused by 2019-nCoV; Translations: [Suspected COVID-19 virus infection] Onset: 09-17-2024 Episodic Noninfectious gastroenteritis (10 sources) Gastroenteritis; Translations: [Noninfective gastroenteritis and colitis, unspecified] Onset: 08-13-2024 08-09-2024 Episodic Other aftercare (20 sources) Patient encounter status; Translations: [Other snf (current) drug therapy] Onset: 07-18-2021 07-18-2021 Episodic Other connective tissue disease (20 sources) Spasm; Translations: [Other muscle spasm] Onset: 11-17-2021 Episodic Other connective tissue disease (1 source) Pain in right forearm; Translations: [Right forearm pain] Onset: 01-19-2024 Episodic Other liver diseases (2 sources) Abnormal levels of other serum enzymes; Translations: [Abnormal levels of other serum enzymes] Onset: 03-14-2024 Episodic Other lower respiratory disease (2 sources) Other nonspecific abnormal finding of lung field; Translations: [Other nonspecific abnormal finding of lung field] Onset: 08-13-2024 Episodic Other nervous system disorders (1 source) Unspecified abnormalities of gait and mobility; Translations: [Gait abnormality] Onset: 05-02-2024 Episodic Other non-traumatic joint disorders (1 source) Pain in right elbow; Translations: [Right elbow pain] Onset: 01-19-2024 Episodic Other screening for suspected conditions (not mental disorders or infectious disease) (20 sources) Other specified abnormal findings of blood chemistry; Translations: [Other abnormal blood chemistry] Onset: 2020 2020 Episodic Ovarian cyst (20 sources) Cyst of bilateral ovaries; Translations: [Unspecified ovarian cyst, right side] Onset: 08-13-2024 Episodic Residual codes; unclassified (3 sources) History of cardiac catheterization; Translations: [Other specified postprocedural states] Onset: 04-04-2014 08-19-2022 Episodic Comment on above: Normal Coronaries @ [facility] 04/29/14 Unclassified (3 sources) No history of clinical finding in subject 08-19-2022 Urinary tract infections (8 sources) Acute cystitis; Translations: [Acute cystitis without hematuria] Onset: 08-13-2024 Episodic Results Test Name Value Interpretation Reference Range Facility [facility] 01-09-2025 CNOV Office Visit (BETHANY ) GAVINNOEMI Aguillon ([id number]) 1965 F Date Time Provider Department 01/09/25 9:45 AM ARETHA PATTERSON During your visit today, we recorded the following information about you: Aretha Patterson DO 01/10/2025 10:51 AM Signed Follow Up Visit Chief Complaint The patient is a 59-year-old female with a right proximal humerus fracture, presenting for a two-week follow-up and initiation of physical therapy. Patient presents with: Right Shoulder - Established Patient, Fracture, Follow Up History of Present Illness PAIN EVALUATION 01/09/2025 0959 Pain Level: 7 Pain Location: Shoulder-Right Description: Sore Duration Amount of Time: 2 Duration Units: Weeks Frequency: Intermittent Intervention/Comfort measure: Cold;Other: See comment sling HPI: Noemi Alonso is a 59 year old female for a follow up visit for a right proximal humerus fracture. She is 2 weeks out from injury that occurred when she had a fall on 12/24/2024. Pain history is noted as above. Last XR Humerus - Impression Only No resulted procedures found. Is there any overall improvement in your condition? Yes, pain Any new injury, since being seen last: No Noemi is a 59-year-old female with a history of a right proximal humerus fracture, presenting for follow-up. Right Proximal Humerus Fracture: - Fracture occurred 2 weeks ago; currently wearing a sling. - Able to open and close hand; experiences difficulty and pain when moving the arm too far from the body. - No changes in medications or medical history since the last visit. - No known allergies. REVIEW OF SYMPTOMS: Patient did not have, and does not [...] of consciousness or full loss of consciousness. Musculoskeletal: (+) right shoulder pain, (+) limited right shoulder range of motion Current Outpatient Medications Medication Sig gabapentin (NEURONTIN) 300 mg capsule Take 1 capsule by mouth three times a day for 90 days. traZODone (DESYREL) 50 mg tablet Take 1 [...] Max of 12 mg in 24 hrs. traMADol (ULTRAM) 50 mg tablet Take 1 tablet by mouth every 4 hours as needed for pain for up to 5 days. for pain. estradiol (ESTRACE) 0.01 % (0.1 mg/gram) vaginal cream Use 0.5g vaginally at bedtime for 2 weeks then 3 times/weeks for maintenance. (Patient not taking: Reported on 01/09/2025) No current facility-administered medications for this visit. Physical Exam Vitals: There were no vitals taken for [...] at rest Rheumatologic: Joint deformities: right shoulder follow up Right Hand Exam Right hand exam is [...] Left hand exam is normal. Tenderness The pa (more content not included)... Normal [facility] XR SHLDR >/=3V AP/AMRIT AP/OTH R RTon 01-09-2025 XR SHLDR >/=3V AP/AMRIT AP/OTHR RT * * *Final Report* * * DATE OF EXAM: Jan 09 2025 9:29AM SANAM [id number] - XR SHLDR >/=3V AP/AMRIT AP/OTHR RT / PROCEDURE REASON: M25.511-Right shoulder pain, unspecified chronicity * * * * Physician Interpretation * * * * EXAM(s): XR SHLDR >/=3V AP/AMRIT AP/OTHR RT EXAM DATE/TIME: 01/09/2025 9:29 AM HISTORY: 59 years old Clinical information: Right shoulder pain, unspecified chronicity Follow-up for right shoulder injury Supraspinatus outlet view Total of 4view TECHNIQUE: Images: XR SHLDR >/=3V AP/AMRIT AP/OTHR RT Comparison: 12/26/2024. RESULT: Findings: The AC joint is markedly narrowed.. The glenohumeral joint is mildly narrowed The acromiohumeral interval is maintained. Comminuted impacted fracture of the humeral neck and head noted. No significant change in alignment is seen. Humeral head remains in good apposition to the glenoid. IMPRESSION: Stable appearance Internet Programmer: [facility] Transcribe Date/Time: Jan 09 2025 10:51A Dictated by : REECE DISLA DO This examination was interpreted and the report reviewed and electronically signed by: REECE DISLA DO on Jan 09 2025 10:52AM EST [id number] N [facility] 01-02-2025 [facility] Telephone (BETHANY) NOEMI ALONSO ([id number]) 1965 F Date Time Provider Department 01/02/25 ARETHA PATTERSON During your visit today, we recorded the following information about you: Carmen Liu 01/02/2025 9:28 AM Signed Prescription Refill Information The patient has been identified by name and date of : Yes Caregiver verified no other encounters exist for this prescription request: Yes Caregiver confirmed with patient/requestor that no other refills are due, in the near future, with this provider at this time: Yes The last office visit in the department: 12/26/24 Does the patient have a future office visit with this provider/department: Yes - 01/09/25 Requested Prescriptions No prescriptions requested or ordered in this encounter oxyCODONE-acetaminoph en (PERCOCET) 5-325 mg tablet Carmen Liu January 02, 2025 9:27 AM Nicolasa Reyes PA-C 01/02/2025 12:19 PM Signed PDMP website checked and validated. All prescriptions have been APPROPRIATELY filled. No suspicious activity was identified. 01/02/2025 by Nicolasa Reyes PA-C The following approved medication requests have been transmitted electronically. Requested Prescriptions Signed Prescriptions Disp Refills oxyCODONE-acetaminoph en (PERCOCET) 5-325 mg tablet 25 tablet 0 Sig: Take 1 tablet by mouth every 6 hours as needed for pain for up to 7 days. for pain. Authorizing Provider: NICOLASA REYES PA-C Allergies As of Date: 01/02/2025 (No Known Allergies) Date Reviewed: 12/26/2024 Reviewed by: Sean Ortiz MA - Fully Assessed Reason for Visit: Medication Request [138] Primary Visit Diagnosis:Closed fracture of right upper extremity, initial encounter [S42.301A] Order(s):oxyCODONE-ac etaminophen (PERCOCET) 5-325 mg tabletTake 1 tablet by mouth every 6 hours as needed for pain for up to 7 days. for pain.Disp: 25 tabletRfl: 0 Prescriptions as of 01/02/2025 - oxyCODONE-acetaminoph en (PERCOCET) 5-325 mg tablet Take 1 tablet by mouth every 6 hours as needed for pain for up to 7 days. for pain. - gabapentin (NEURONTIN) 300 [...] for maintenance. Problem List As Of Date 01/02/2025 Noted Resolved Heart attack (HCC) [I21.9] 07/24/2014 Essential hypertension [I10] 07/24/2014 Anxiety disorder [F41.9] 07/24/2014 Anemia [D64.9] 07/24/2014 Migraine headache [G43.909] Environmental allergies [Z91.09] 10/06/2018 Tension headache [G44.209] 10/06/2018 Well adult exam [Z00.00] 10/06/2018 History of SD (myocardial infarction) [I25.2] 07/11/2019 Former smoker [Z87.891] 2020 Lung nodules [R91.8] 2020 Elevated LFTs [R79.89] 2020 GERD without esophagitis [K21.9] 12/12/2020 Elevated hemoglobin A1c [R73.09] 07/18/2021 Medication management [Z79.899] 07/18/2021 Metabolic dysfunction-associate d steatohepatiti*2021 Female genital prolapse [N81.9] 08/17/2021 Pelvic pain [R10.20] 10/06/2021 Levator spasm [M62.838] 11/17/2021 Mixed stress and urge urinary incontinence [N39*11/17/2021 Cystocele, midline [N81.11] 11/17/2021 Screening for colon cancer [Z12.11] 06/04/2022 Situational depression [F43.21] 06/04/2022 Aneurysm of left subclavian artery (HCC) [I72.8]07/21/2022 Ovarian cyst, bilateral [N83.201, N83.202] 08/29/2024 Thickened endometrium [R93.89] 08/29/2024 Prescriptions ordered this encounter Disp Refills Start End OXYCODONE-ACETAMINOPH EN 5 MG-325 MG * 25 t* 0 01/02/2025 01/09/2025 Route: PO Sig: Take 1 tablet by mouth every 6 hours as needed for pain for up to 7 days. for pain. Encounter Status:Closed by NICOLASA REYES on 01/02/25 [facility] ED MED ADMINISTRATION DETAIL on 12-30-2024 ED MED ADMINISTRATION DETAIL Silk Snapper - NOEMI ALONSO : 1965, , Medication Administration Record [address] [address] [id number] 12/24/2024 Patient: NOEMI ALONSO Sex: Female : 1965 Age: 59y MEASUREMENTS: Wt: 72.6 kg, Ht/Rafy: 61.0 in, BMI: 30.23 ALLERGIES: No known drug allergies Medication Ordered Medication Administration Date/Time HYDROmorphon 16:52 12/24 HYDROmorphone (Dilaudid) IVP 0.5 mg given Given e (Dilaudid) IVP via Site# 1. Allergies verified and confirmed 5 rights. IV 16:52 12/24/2024 0.5 mg (NOW patency established. IV site checked: no pain, redness, or Crystal Jessica, x1, HIGH ALERT swelling. IV flushed thoroughly pre-medication R.N. MEDICATION) administration. Information reviewed with patient Scanned including reason for taking this medication, signs of allergic reaction, precautions and sedative warning. Verbalizes understanding. (right shoulder pain 01/11). Medication Wastage: 0.5 mg wasted. - 16:53 Marleni Lopez R.N. Zofran IVP 4 mg 16:49 12/24 Zofran IVP 4 mg given via Site# 1. Allergies Given (NOW x1) verified and confirmed 5 rights. IV patency established. IV 16:49 12/24/2024 site checked: no pain, redness, or swelling. IV flushed Marleni Lopez thoroughly pre-medication administration. Information R.N. reviewed with patient including reason for taking this Scanned medication, signs of allergic reaction and precautions. Verbalizes understanding. - 16:51 Marleni Lopez R.N. 1 of 2 Silk Snapper - NOEMI ALONSO, : 1965, , IV NS 0.9 % 16:12/24 IV NS 0.9 % 1000 mL started in bag#1 1000 Started 1000 mL at 100 mL at 100 mL/hr via Site# 1. Allergies verified and 16:48 12/24/2024 mL/hr (NOW x1) confirmed 5 rights. IV patency established. IV site Marleni Lopez, checked: no pain, redness, or swelling. IV flushed Lesley.NMarco Antonio thoroughly pre-medication administration. Information Stopped reviewed with patient including reason for taking this 20:12/24/2024 medication, signs of allergic reaction and precautions. Aretha Ibrahim R.N. Verbalizes understanding. - 16:49 Marleni Lopez R.N. Scanned 20:12/24 Medication Discontinued: bag #1 infused. Total amount infused: 500 mL. IV patency established. IV site checked: no pain, redness, or swelling. IV flushed thoroughly post-medication administration. - 20:03 Aretha Ibrahim R.N. HYDROcodone- 19:48 12/24 HYDROcodone-acet (Vicodin/[place]) PO 5 mg- Given acet 325 mg 1 tab given. Allergies verified and confirmed 5 19:48 12/24/2024 (Vicodin/[place]) rights. Information reviewed with patient including reason Aretha Ibrahim R.N. PO 5 mg-325 mg for taking this medication. Verbalizes understanding. - Not Scanned 1 tab (NOW x1, 19:53 Aretha Ibrahim R.N. HIGH ALERT MEDICATION) 2 of 2 Normal [facility] ED NURSES CLINICAL NOTEon ED NURSES CLINICAL NOTE Nurse Narrative - NOEMI ALONSO : 1965, , Nurse Clinical Narrative [address] [address] [id number] 12/24/2024 16:03:00 Patient: NOEMI ALONSO Sex: Female : 1965 Age: 59y Disposition: Discharge Disposition Decision Time: 19:35 12/24/2024 Departure Time: 20:10 12/24/2024 TRIAGE Historian: (patient). Accompanied by family. Primary physician (bonny). Triage time: 16:05 12/24/2024. Acuity: LEVEL 4. Chief Complaint: FALL. Location of injuries: right clavicle area and right knee. Occurred 15:50 12/24/2024. No loss of consciousness. No headache, neck pain, back pain, numbness or weakness. Not currently taking anticoagulation therapy. SEPSIS SCREEN: NEGATIVE. SIRS criteria negative. No possible sources of infection. -- 16:08 12/24/24 EDT Roman Buchanan R.N. 16:12/24/24. HR: 62. RR: 18. O2 saturation: 98% Temperature: 97.4 F. Pain level now 10/10. -- 16:08 12/24/24 CEET Roman Buchanan R.N. 16:12/24/24. BP: 155/86 MAP: 109. -- 16:13 12/24/24 CEET Marleni Lopez R.N. Measurements: 16:12/24/24 Wt: 72.6 kg, Ht/Rafy: 61.0 in, BMI: 30.23 -- 16:12/24/24 CEET Roman Buchanan R.N. Medications: trazodone 50 mg tablet: 1 tablet once a day . -- 16:13 12/24/24 CEEJose Lopez R.N. 1 of 5 Nurse Narrative - NOEMI ALONSO, : 1965, , propranolol ER 160 mg capsule,24 hr,extended release: 1 capsule once a day . -- 16:13 12/24/24 CEET Marleni Lopez R.N. omeprazole 40 mg capsule,delayed release: 1 capsule once a day . -- 16:13 12/24/24 CEET Marleni Lopez R.N. loratadine 10 mg tablet: 1 tablet once a day . -- 16:12/24/24 CEET Marleni Lopez R.N. gabapentin 300 mg capsule: 1 capsule three times a day . -- 16:12/24/24 CEET Marleni Lopez R.N. atorvastatin 20 mg tablet: 1 tablet once a day . -- 16:12/24/24 CEET Marleni Lopez R.N.Updated through eRx -- 19:42 12/24/24 CEET Kaden Marcum M.D. atorvastatin 20 mg tablet: 1 tablet once a day. -- 19:42 12/24/24 CEET Kaden Marcum M.D. 16:05 12/24/24. Preferred Pharmacy: ([facility]). -- 16:08 12/24/24 AGNES Buchanan R.N. Allergies: no known drug allergies -- 16:06 12/24/24 AGNES Buchanan R.N. Problems: fatty liver -- 16:06 12/24/24 AGNES Buchanan R.N. Myocardial Infarction -- 16:06 12/24/24 AGNES Buchanan R.N. Hypertension -- 16:06 12/24/24 AGNES Buchanan R.N. Hyperlipidemia -- 16:06 12/24/24 AGNES Buchanan R.N. Gastroesophageal Reflux Disease -- 16:06 12/24/24 AGNES Buchanan R.N. Headache -- 16:06 12/24/24 CEET Roman Buchanan R.N. Surgeries: Cholecystectomy -- 16:06 12/24/24 AGNES Buchanan R.N. Tubal Ligation -- 16:06 12/24/24 CEET Roman Buchanan R.N. History 16:05 12/24/24. SOCIAL HX: Never smoker. No alcohol use or drug use. The patient has not traveled outside the [place] Infectious disease exposure: No infectious disease exposure. ABUSE ASSESSMENT: The patient answered yes to the question(s) Do you feel safe in your home? and no to the question(s) Are you afraid to go home?. 2 of 5 Nurse Narrative - NOEMI ALONSO, : 1965, , SELF HARM ASSESSMENT: Self harm assessment was performed. The patient answered no to the question(s) Have you recently felt down, depressed, or hopeless? and Do you have thoughts of harming or killing yourself?. FALL RISK ASSESSMENT: Fall risk assessment completed. Risk factors identified include severe pain. Fall interventions initiated. Patient placed on stretcher. Side rails up x2. Bed in low position. Brakes on. Patient identified as a fall risk by ID band. -- 16:08 12/24/24 AGNES Buchanan R.N. Interventions 16:05 12/24/24. Advanced care plan discussed with patient. Patient does not have advanced directive. (full code). -- 16:08 12/24/24 AGNES Buchanan R.N. PHYSICAL ASSESSMENT 16:35 12/24/24. GENERAL / NEURO / PSYCH: Alert. Oriented X 4. Appears in no acute distress. HEENT: Pupils equal, round and reactive to light. RESPIRATORY: Respirations not labored. Chest nontender. Breath sounds within normal limits. CVS: Normal heart rate and rhythm. Pulses within normal limits. Capillary refill less than 2 seconds. GI / : Abdomen soft and nontender. EXTREMITIES: Limited ROM present in the right shoulder. Right shoulder: tenderness and swelling (no visible injury). No erythema, ecchymosis, laceration, abrasion or puncture wound. No foreign body or deformity. No localization or limitation in ROM. Right knee: large and superficial abrasion. SKIN: Skin is warm. -- 17:59 12/24/24 AGNES oLpez R.N. NURSING PROGRESS NOTES 16:12/24/24. Patient identifiers checked. Call light placed in reach. Side rails up x 1. Bed placed in lowest position. Brakes of bed on. -- 16:25 12/24 (more content not included)... Normal [facility] ED ORDER SHEET (CPOE ONLY)on 12-30-2024 ED ORDER SHEET (CPOE ONLY) Order Sheet - NOEMI ALONSO, : 1965, , Order Sheet [address] [address] [id number] 12/24/2024 Patient: NOEMI ALONSO Sex: Female : 1965 Age: 59y MEASUREMENTS: Wt: 72.6 kg, Ht/Rafy: 61.0 in, BMI: 30.23 ALLERGIES: No known drug allergies MEDICATION/IV/DRIP/FL UID ORDERS Acknowledge Order Description Priority Entered d Completed HYDROmorphone 16:12/24/2024 16:53 (Dilaudid) IVP0.5 mg (NOW Kaden Coverdale, 12/24/2024 x1, HIGH ALERT MEDICATION) Clarence Lopez R.N. Reason for ordering with Benefits outweigh risks --16:29 12/24/2024 Kaden alerts: Clarence Marcum Zofran IVP4 mg (NOW x1) 16:29 12/24/2024 16:51 Kaden Burciagale, 12/24/2024 Clarence Lopez R.N. Reason for ordering with Benefits outweigh risks --16:29 12/24/2024 Kaden alerts: Clarence Marcum IV NS 0.9 %1000 mL at 100 16:29 12/24/2024 16:49 mL/hr (NOW x1) Kaden Marcum, 12/24/2024 Clarence Lopez R.N. 1 of 5 Order Sheet - NOEMI ALONSO, : 1965, , HYDROcodone-acet 19:28 12/24/2024 19:30 19:53 (Vicodin/[place]) PO 5 mg- Kaden Coverdale, 12/24/2024 12/24/2024 325 mg1 tab (NOW x1, HIGH M.DAretha Ng, ALERT MEDICATION) Cecilia Brooks Reason for ordering with Benefits outweigh risks --19:28 12/24/2024 Kaden alerts: Clarence Marcum LAB ORDERS Acknowledge Order Description Priority Entered d Collected Completed CBC w Diff Stat Stat 16:13 Cancelled: Wrong Patient 12/24/2024 16:15 EDT Cecilia Mullins M.D. BNP Stat Stat 16:13 Cancelled: Wrong Patient 12/24/2024 16:15 EDT Cecilia Mullins M.D. CMP Stat Stat 16:13 Cancelled: Wrong Patient 12/24/2024 16:15 EDT Cecilia Mullins M.D. PT with INR Stat Stat 16:13 Cancelled: Wrong Patient 12/24/2024 16:16 EDT Cecilia Mullins M.D. D-Dimer Stat Stat 16:13 Cancelled: Wrong Patient 12/24/2024 16:16 EDT Cecilia Mullins 2 of 5 Order Sheet - NOEMI ALONSO, : 1965, , Clarence Marcum EKG - ED Stat Stat 16:13 Cancelled: Wrong Patient 12/24/2024 16:15 EDT Cecilia Mullins M.D. Troponin-I Protocol Stat 16:13 Cancelled: Wrong Patient (STAT 1hr) (Sched: 12/24/2024 16:16 EDT Marleni Lopez R.N. q1h X2); Stat 1 of 2 Kaden Marcum M.D. Troponin-I Protocol Stat 16:13 Cancelled: Wrong Patient (STAT 1hr) (Sched: 12/24/2024 16:17 EDT Marleni Lopez R.N. q1h X2); Stat 2 of 2 Kaden Marcum M.D. CBC w Diff Stat Stat 16: 16:42 18:55 12/24/2024 12/24/2024 12/24/2024 Clarence Campuzano R.N. Brenner, R.N. BMP Stat Stat 16: 16:42 18:55 12/24/2024 12/24/2024 12/24/2024 Clarence Campuzano R.N. Brenner, R.N. PT with INR Stat Stat 16: 16:42 18:55 12/24/2024 12/24/2024 12/24/2024 Clarence Campuzano R.N. Brenner, R.N. 3 of 5 Order Sheet - NOEMI ALONSO, : 1965, , DIAGNOSTIC STUDY ORDERS Acknowledge Order Description Priority Entered d Completed Chest 1V Stat Stat 16:13 12/24/2024 Cancelled: Wrong Patient Kaden Trixie, 16:16 EDT Marleni Lopez M.D. R.N. Order 16:13 Status: Not . Kaden Marcum, Comments: 12/24/2024: Clarence Reason for Study: Chest Pain Shoulder R Complete Stat Stat 16:29 12/24/2024 16:42 19:15 Kaden Victordacarmel, 12/24/2024 12/24/2024 Cecilia Boswell, Cecilia Reason for Study: Fall Knee R 2V Stat Stat 16:29 12/24/2024 16:42 19:15 Kaden Coverdale, 12/24/2024 12/24/2024 Cecilia Boswell, Cecilia Reason for Study: Pain Hand L 2V Stat Stat 16:29 12/24/2024 16:42 19:15 Kaden Victordale, 12/24/2024 12/24/2024 Cecilia Boswell, Cecilia Reason for Study: Pain Hand R 2V Stat Stat 16:29 12/24/2024 16:42 19:15 Kaden Marcum, 12/24/2024 12/24/2024 Cecilia Boswell R.N. Reason for Study: Pain 4 of 5 Order Sheet - NOEMI ALONSO, : 1965, , STAFF ORDERS Acknowledge Order Description Priority Entered d Collected Completed Obtain Old EKG 16:13 Cancelled: Wrong Patient 12/24/2024 16:16 EDT Cecilia Mullins M.D. Dispatcher Radio 16:13 Cancelled: Wrong Patient 12/24/2024 16:16 EDT Cecilia Mullins M.D. IV Saline Lock 16:13 Cancelled: Wrong Patient 12/24/2024 16:16 EDT Cecilia Mullins M.D. Diet: 16:29 16:42 18:55 12/24/2024 12/24/2024 (more content not included)... Normal [facility] ED PHYSICIAN CLINICAL REPORT on 12-30-2024 ED PHYSICIAN CLINICAL REPORT Narrative - NOEMI ALONSO, : 1965, , Physician Clinical Narrative [address] [address] [id number] 12/24/2024 16:03:00 Patient: NOEMI ALONSO Sex: Female : 1965 Age: 59y Disposition: Discharge Disposition Decision Time: 19:35 12/24/2024 Departure Time: 20:10 12/24/2024 Measurements Wt: 72.6 kg, Ht/Rafy: 61.0 in, BMI: 30.23 Initial Vital Sign Measured Gloria Time BP MAP HR RR O2Sat ETCO2 Temp n GCS RTS 16:08 62 18 98% 97.4 F 10 12/24/2024 Time Seen: 16:07 12/24/2024. Arrived- By private vehicle. Historian- patient. Independent historian- family. HISTORY OF PRESENT ILLNESS Chief Complaint: FALL. Slipped due to wet floor while running. Landed on arms: hands extended. (patient is running out to her car in the [employer] parking lot during the rain and slipped and fell. She complains of pain in her right shoulder which is hard to move, bilateral hands and an abrasion to her right knee. She denies head or neck injury. There was no loss of consciousness. There was no prodrome such as dizziness lightheadedness or palpitations prior to her slip and fall.). The injury occurred just prior to arrival. Fell. Occurred on a street. The patient complains of moderate pain. 1 of NOEMI Milton, : 1965, , REVIEW OF SYSTEMS MUSCULOSKELETAL: The patient has no pain on weight bearing. SKIN: The patient sustained skin laceration (Abrasion right knee). GI: No nausea, abdominal pain or vomiting. RESPIRATORY: No difficulty breathing. CVS: No chest pain. EYES: No loss of vision. NEUROLOGICAL: No numbness, dizziness, weakness or headache. Status: Not . PAST HISTORY See nurses notes. fatty liver [...] HISTORY No alcohol use or drug use. 2 of 11 NOEMI Milton, : 1965, , ADDITIONAL NOTES The nursing notes have been reviewed. PHYSICAL EXAM Vital Signs: Have been reviewed. Appearance: Alert. Oriented X3. Appears to be in pain. Does not appear to be anxious or lethargic. No acute distress. but apparent distress. Head: Head non-tender. No swelling of head. Eyes: Pupils equal, round and reactive to light. EOM intact. ENT: No dental injury. Pharynx normal. Neck: Painless ROM. Non-tender. CVS: Heart sounds normal. Pulses normal. Respiratory: Painless inspiration. Breath sounds normal. Chest nontender. Abdomen: No visible injury. Soft and nontender. Back: No tenderness. ROM normal. Skin: Skin warm. (abrasion right knee). Extremities: Abrasions present (right knee). Soft tissue tenderness present (mild to both hands and right knee significant 2 right upper humerus). No bony tenderness. Right arm: severe tenderness and mild swelling located in the upper arm. Neurovascular intact distally. No foreign body or deformity. Left hand: mild tenderness and small ecchymosis localized to the palmar aspect of the hand. No suspected foreign body or deformity. Thenar eminence, right hand. Pelvis stable. Right knee: mild tenderness and small abrasion. No erythema, swelling, laceration, ecchymosis or puncture wound. No suspected foreign body or deformity. No avulsion. No lower extremity edema. Neuro: Oriented X 3. No motor deficit. LABS, X-RAYS, AND EKG X-Rays: (x-ray of the humerus reveals a humeral neck fracture on the right. X-rays of the left hand end of the knee are negative for fracture /dislocation.). Laboratory Tests: BMP with eGFR Final PAOLA: 12/24/2024 16:38:00 EDT MsgRcvd: 12/24/2024 17:13 EDT [address] [place], [place] [address]MAHIN NOEMI, : 1965, , Lab Test Result Reference Status Received 12/24/2024 17:13 BMP with eGFR Final EDT BASIC METABOLIC PANEL 12/24/2024 17:13 SODIUM 138 mmol/l 136 - 145 Final EDT 12/24/2024 17:13 POTASSIUM 4.1 mmol/L 3.5 - 5.1 Final EDT 12/24/2024 17:13 CHLORIDE 100 mmol/L 98 - 107 Final EDT 12/24/2024 17:13 CO2 30.9 mmol/L 21.0 - 32.0 Final EDT 123 mg/dl 12/24/2024 17:13 GLUCOSE 74 - 106 Final Above high normal EDT 12/24/2024 17:13 BUN 9 mg/dl 7 - 18 Final EDT 12/24/2024 17:13 CREATININE 0.75 mg/dl 0.55 - 1.02 Final ED (more content not included)... Normal [facility] ED SUPER BILLon 12-30-2024 ED NOEMI Helms, : 1965, , [place] [id number] [place] [address] [id number] 12/24/2024 Patient: NOEMI ALONSO Sex: Female : 1965 Age: 59y Item Facility Profession Category Description Code al Code Quantity Fee Total Drugs Normal 705707 1 $0.00 $0.00 Saline 1000cc (189542) Nurse/E/M EMERGENCY 070157 1 $0.00 $0.00 DEPARTMEN T VISIT HIGH/URGEN T SEVERITY (62292-99) Nurse/IV/IM/ Hydration 689834 3 $0.00 $0.00 Infusions additional hour (25002) Nurse/IV/IM/ IVP 647464 1 $0.00 $0.00 Infusions additional push (91833) Nurse/IV/IM/ IVP initial 545912 1 $0.00 $0.00 Infusions (52082) 1 of 2 NOEMI Centeno, : 1965, , Grand Total $0.00 Providers Kaden Marcum M.D. Chief Complaint FALL. Slipped due to wet floor while running. Landed on arms: hands extended. (patient is running out to her car in the [employer] parking lot during the rain and slipped and fell. She complains of pain in her right shoulder which is hard to move, bilateral hands and an abrasion to her right knee. She denies head or neck injury. There was no loss of consciousness. There was no prodrome such as dizziness lightheadedness or palpitations prior to her slip and fall.). Principal Diagnosis Multiple superficial abrasions to the right knee and left hand. Right knee contusion. Fall on the same level by tripping. ICD-10 Codes W01.0XXA: Fall on same level from slipping, tripping and stumbling without subsequent striking against object, initial encounter S80.01xA: Contusion of right knee, initial encounter S80.211A: Abrasion, right knee, initial encounter S60.512A: Abrasion of left hand, initial encounter 2 of 2 Normal [facility] ED VISIT SUMMARYon ED VISIT SUMMARY Visit Overview - NOEMI ALONSO : 1965, , Visit [place] [address] [place] [phone] 12/24/2024 Patient: NOEMI ALONSO Sex: Female : 1965 Age: 59y 12/30/2024 07:52 AM EDT ED Arrival:16:03 12/24/2024 Status:not Recent Travel:no EDT Language:eng Adv Directive:No Isolation Status: Infectious Disease Ethnicity:N Fall Risk:risk Exposure:no Measurements:5'1 / 154.9 Self-Harm Status:risk Sepsis Screen:negative cm 160.0 lb / 72.6 kg Chief Complaint:FALL, (15:50 12/24/2024), and (bonny) ALLERGIES No Known Drug Allergies HOME MEDICATIONS atorvastatin 20 mg tablet: 1 tablet once a day. gabapentin 300 mg capsule: 1 capsule three times a day . loratadine 10 mg tablet: 1 tablet once a day . omeprazole 40 mg capsule,delayed release: 1 capsule once a day . 1 of 4 Visit Overview - NOEMI ALONSO, : 1965, , propranolol ER 160 [...] ED COURSE MEDICATIONS GIVEN IN EMERGENCY DEPARTMENT 16:48 12/24/24 IV NS 0.9 % 1000 mL 100 mL/hr 16:49 12/24/24 Zofran IVP 4 mg 16:52 12/24/24 HYDROmorphone (Dilaudid) IVP 0.5 mg HYDROcodone-acet (Vicodin/[place]) PO 5 mg-325 19:48 12/24/24 mg 1 tab IV SITE INFORMATION INTAKE OUTPUT REASSESMENT (most recent) 2 of 4 Visit Overview - NOEMI ALONSO, : 1965, , 16:35 12/24/24. GENERAL / NEURO / PSYCH: Alert. Oriented X 4. Appears in no acute distress. HEENT: Pupils equal, round and reactive to light. RESPIRATORY: Respirations not labored. Chest nontender. Breath sounds within normal limits. CVS: Normal heart rate and rhythm. Pulses within normal limits. Capillary refill less than 2 seconds. GI / : Abdomen soft and nontender. EXTREMITIES: Limited ROM present in the right shoulder. Right shoulder: tenderness and swelling (no visible injury). No erythema, ecchymosis, laceration, abrasion or puncture wound. No foreign body or deformity. No localization or limitation in ROM. Right knee: large and superficial abrasion. SKIN: Skin is warm. VITAL SIGNS First Vitals Last Vitals Temp 16:08 12/24/24 97.4 F Temp 18:42 12/24/24 BP 16:08 12/24/24 BP 18:42 12/24/24 HR 16:08 12/24/24 62 HR 18:42 12/24/24 74 RR 16:08 12/24/24 18 RR 18:42 12/24/24 O2 Sat 16:08 12/24/24 98% O2 Sat 18:42 12/24/24 100% Pain 16:08 12/24/24 10 Pain 18:42 12/24/24 ETCO2 16:08 12/24/24 ETCO2 18:42 12/24/24 GCS 16:08 12/24/24 GCS 18:42 12/24/24 RTS 16:08 12/24/24 RTS 18:42 12/24/24 PROCEDURES NURSING INTERVENTIONS LABS / STUDIES LABS / STUDIES ORDERED BMP CBC w Diff Hand L 2V Hand R 2V Knee R 2V PT with INR Shoulder R Complete CLINICAL IMPRESSION 3 of 4 Visit Overview - NOEMI ALONSO, : 1965, , FALL ON THE SAME LEVEL BY TRIPPING MULTIPLE SUPERFICIAL ABRASIONS TO THE RIGHT KNEE AND LEFT HAND POSSIBLE CLOSED NONDISPLACED COMMINUTED (3 FRAGMENTS) FRACTURE OF THE SURGICAL NECK OF THE RIGHT HUMERUS RIGHT KNEE CONTUSION 4 of 4 Normal [facility] ED VITALS FLOW SHEETon 12-30 ED VITALS FLOW SHEET Vitals - NOEMI ALONSO, : 1965, , Vital Sign Flow Sheet [address] [address] [phone] 12/24/2024 Patient: NOEMI ALONSO Sex: Female : 1965 Age: 59y Measurements Wt: 72.6 kg, Ht/Rafy: 61.0 in, BMI: 30.23 Measured Gloria Time BP MAP HR RR O2Sat ETCO2 Temp n GCS RTS 18:42 74 100% 12/24/2024 18:37 64 98% 12/24/2024 18:32 61 97% 12/24/2024 18:27 60 97% 12/24/2024 18:22 60 97% 12/24/2024 18:17 60 97% 12/24/2024 18:12 61 96% 12/24/2024 18:07 59 98% 12/24/2024 1 of 3 Vitals - NOEMI ALONSO, : 1965, , 18:02 59 97% 12/24/2024 17:57 62 97% 12/24/2024 17:52 61 96% 12/24/2024 17:47 61 96% 12/24/2024 17:42 59 98% 12/24/2024 17:22 61 98% 12/24/2024 17:17 61 97% 12/24/2024 17:12 60 97% 12/24/2024 17:07 60 97% 12/24/2024 17:02 62 97% 12/24/2024 16:57 64 97% 12/24/2024 16:32 63 100% 12/24/2024 16:22 57 100% 12/24/2024 16:18 159/95 115 58 12/24/2024 16:17 58 100% 12/24/2024 2 of 3 Vitals - NOEMI ALONSO, : 1965, , 16:09 155/86 109 12/24/2024 16:08 62 18 98% 97.4 F 10 12/24/2024 3 of 3 Normal [facility] Abdomen/Pelvis W IV Cont ONL Yon 12-29-2024 Abdomen/Pelvis W IV Cont ONLY [facility] Services [address] [place] [address] Abdomen/Pelvis W IV Cont ONLY MR#: [id number] Acct: [id number] Name: NOEMI ALONSO Rep #: [id number] : 1965 F 59 From: Duran Mcdonough MD PCP: Dr. Osvaldo Sue MD Status: REG ER Study: Abdomen/Pelvis W IV Cont ONLY Date of Exam: Exam# [id number] Ordering Dr: Freedom Alexander MD PROCEDURE: ABDOMEN/PELVIS W IV CONT ONLY 12/29/2024 REASON FOR EXAM: NAUSEA AND VOMITING TECHNIQUE: Procedure Code: CTABDPELIV Modality: CT Procedure: ABDOMEN/PELVIS W IV CONT ONLY Coronal and Sagittal reconstruction series were provided. CONTRAST: Isovue-300 VOLUME: 100 mL One or more dose reduction techniques were used (e.g., Automated exposure control, adjustment of the mA and/or kV according to patient size, use of iterative reconstruction technique. RADIATION DOSE SUMMARY: CTDlvol: 26.14 mGy DLP: 923.33 mGycm COMPARISON: CT abdomen and pelvis with IV contrast, 08/09/2024 FINDINGS: Lung bases: Nodules seen in the lung bases are unchanged. There are no pleural effusions. The heart size is normal. There is no pericardial effusion. There is no significant calcific vascular disease of the coronary arteries or visualized portion of the thoracic aorta. Liver: Fatty liver infiltration. Gallbladder: Surgically absent. Spleen: Normal. Pancreas: Normal size without evidence of mass surrounding inflammation or ductal dilation. Adrenals: Normal. Kidneys: Normal renal sizes. No hydronephrosis. Bladder: The urinary bladder is partially evacuated but has an otherwise normal unenhanced appearance. Reproductive Organs: There are numerous dilated vessels surrounding the uterus consistent with pelvic congestion. There is a left ovarian cyst measuring 4.8 x 4.4 x 3.5 cm (was 4.5 x 4.4 x 3.5 cm). There is a right ovarian cyst, measuring 2.3 x 2.2 x 2.2 cm (was 2.2 x 2.0 x 2.0 cm). There are bilateral tubal ligation clips. Bowel: The gastrointestinal tract appears unremarkable. Appendix: The appendix is not identified. There is no inflammatory process identified in the right lower quadrant to suggest appendicitis. Lymph nodes: There is no significant mesenteric, retroperitoneal or pelvic lymphadenopathy. Vasculature: There is calcific vascular disease of the abdominal aorta. Peritoneum / Retroperitoneum: There are no abnormal intra or retroperitoneal masses or fluid collections. Bones: There are no significant bony abnormalities of the abdomen or pelvis. CT/Abdomen/Pelvis W IV Cont ONLY IMPRESSION: 1. Serpiginous vessels surrounding the uterus consistent with pelvic congestion. 2. Bilateral ovarian cysts, not significantly changed. 3. The appearance of the lung bases is unchanged. 4. Fatty liver infiltration. Reading Location: [id number] CC: Dr. Freedom Alexander MD; Dr. Osvaldo Sue MD Internet Programmer: Signed Normal [facility] Absolute lymphocyte countOrd ered By: Freedom Alexander on 12-29-2024 Lymphocytes Auto (Unsp spec) [#/Vol] 2.85 10*3/uL 0.83-4.51 [facility] Absolute neutrophil countOrd ered By: Freedom Alexander on 12-29-2024 Neutrophils (Bld) [#/Vol] 8.2 10*3/uL High 2.0-7.7 [facility] Anion gap in Serum or Plasma Ordered By: Freedom Alexander on 12-29-2024 Anion gap [Moles/Vol] 17 mmol/L High 5-15 [facility] Automated lymphocyte count a s percentage of total leukocytesOrdered By: Freedom Alexander on 12-29-2024 Lymphocytes/100 WBC Auto (Unsp spec) 23.5 % 19-41 [facility] BUN/creatinine ratioOrdered By: Freedom Alexander on 12-29-2024 Urea nitrogen/Creatinine [Mass ratio] 17.0 mg/mg 10-20 [facility] Basophil percentageOrdered B y: Freedom Alexander on 12-29-2024 Basophils/100 WBC (Bld) 0.5 % 0-1 [facility] Bilirubin Test strip Ql (U)O rdered By: Freedom Alexander on 12-29-2024 Bilirubin Ql (U) 1 mg/dL High Negative [facility] Comment on above: COLOR OF URINE MAY A FFECT DIPSTICK RESULTS. Bilirubin, totalOrdered By: Freedom Alexander on 12-29-2024 Bilirubin [Mass/Vol] 2.15 mg/dL High 0.00-1.30 [facility] CBC W/Diff, Automatedon 12-04 Absolute Lymph 2.85 X10 3/uL Normal 0.83-4.51 [facility] Comment on above: Performed By: #### L 100.0100, L500.4050, L501.2450 ####[facility] [address] [place], [address] Absolute Neut 8.2 X10 3/uL High 2.0-7.7 [facility] Comment on above: Performed By: #### L 100.0100, L500.4050, L501.2450 ####[facility] [address] [place], [address] Basophils/100 WBC (Bld) 0.5 % Normal 0-1 [facility] Comment on above: Performed By: #### L 100.0100, L500.4050, L501.2450 ####[facility] [address] [place], [address] Eosinophils/100 WBC (Bld) 0.8 % Normal 0-5 [facility] Comment on above: Performed By: #### L 100.0100, L500.4050, L501.2450 ####[facility] [address] [place], [address] Erythrocyte distribution width (RBC) [Ratio] 13.4 % Normal 11.6-14.6 [facility] Comment on above: Performed By: #### L 100.0100, L500.4050, L501.2450 ####[facility] [address] [place], [address] Hematocrit (Bld) [Volume fraction] 41.8 % Normal 37-47 [facility] Comment on above: Performed By: #### L 100.0100, L500.4050, L501.2450 ####[facility] [address] [place], [address] Hemoglobin (Bld) [Mass/Vol] 14.8 g/dL Normal 12.0-15.0 [facility] Comment on above: Performed By: #### L 100.0100, L500.4050, L501.2450 ####[facility] [address] [place], [address] IG% 0.300 Normal 0.0-0.9 [facility] Comment on above: Result Comment: IG% - Immature Granulocytes (promyelocytes, myelocytes and metamyelocytes) > 1% indicates that a LEFT SHIFT is Present. Performed By: #### L 100.0100, L500.4050, L501.2450 ####[facility] [address] [place], [address] Lymphocytes/100 WBC (Bld) 23.5 % Normal 19-41 [facility] Comment on above: Performed By: #### L 100.0100, L500.4050, L501.2450 ####[facility] [address] [place], [address] MCH (RBC) [Entitic mass] 31.9 pg Normal 27.0-32.0 [facility] Comment on above: Performed By: #### L 100.0100, L500.4050, L501.2450 ####[facility] [address] [place], [address] MCHC (RBC) [Mass/Vol] 35.4 g/dL Normal 32-36 [facility] Comment on above: Performed By: #### L 100.0100, L500.4050, L501.2450 ####[facility] [address] [place], [address] MCV (RBC) [Entitic vol] 90.1 fL Normal 81-99 [facility] Comment on above: Performed By: #### L 100.0100, L500.4050, L501.2450 ####[facility] [address] [place], [address] Monocytes/100 WBC (Bld) 7.2 % Normal 0-10 [facility] Comment on above: Performed By: #### L 100.0100, L500.4050, L501.2450 ####[facility] [address] [place], [address] Neutrophils/100 WBC (Bld) 67.7 % Normal 47-70 [facility] Comment on above: Performed By: #### L 100.0100, L500.4050, L501.2450 ####[facility] [address] [place], [address] Nucleated RBC (Bld) [#/Vol] 0 10*3/uL Normal 0-5 [facility] Comment on above: Performed By: #### L 100.0100, L500.4050, L501.2450 ####[facility] [address] [place], [address] Platelet mean volume (Bld) [Entitic vol] 9.8 fL Normal 6.2-12.0 [facility] Comment on above: Performed By: #### L 100.0100, L500.4050, L501.2450 ####[facility] [address] [place], [address] Platelets (Bld) [#/Vol] 389 10*3/uL Normal 150-450 [facility] Comment on above: Performed By: #### L 100.0100, L500.4050, L501.2450 ####[facility] [address] [place], [address] RBC (Bld) [#/Vol] 4.64 10*6/uL Normal 4.2-5.4 [facility] Comment on above: Performed By: #### L 100.0100, L500.4050, L501.2450 ####[facility] [address] [place], [address] RDW SD 43.6 fl Normal 35.1-43.9 [facility] Comment on above: Performed By: #### L 100.0100, L500.4050, L501.2450 ####[facility] [address] [place], [address] WBC (Bld) [#/Vol] 12.1 10*3/uL High 4.4-11.0 [facility] Comment on above: Performed By: #### L 100.0100, L500.4050, L501.2450 ####[facility] [address] [place], [address] Carbon dioxide, total [Moles /volume] in Central venous bloodOrdered By: Freedom Alexander on 12-29-2024 CO2 [Moles/Vol] 23.2 mmol/L 21.0-32.0 [facility] Chloride assayOrdered By: Nayan Alexander on 12-29-2024 Chloride [Moles/Vol] 99 mmol/L 98-108 [facility] Comprehensive Metabolic Prof ilon 12-29-2024 Albumin [Mass/Vol] 4.3 g/dL Normal 3.5-5.0 [facility] Comment on above: Performed By: #### L 100.0100, L500.4050, L501.2450 ####[facility] [address] [place], [address] Albumin/Globulin [Mass ratio] 1.1 {ratio} Normal 0.9-2.4 [facility] Comment on above: Performed By: #### L 100.0100, L500.4050, L501.2450 ####[facility] [address] [place], [address] ALK PHOS 112 U/L High 35-104 [facility] Comment on above: Performed By: #### L 100.0100, L500.4050, L501.2450 ####[facility] [address] [place], [address] ALT [Catalytic activity/Vol] 153 U/L High <=34 [facility] Comment on above: Result Comment: Hemo lysis present, Results??could be affected. ?? Performed By: #### L 100.0100, L500.4050, L501.2450 ####[facility] [address] [place], [address] AST [Catalytic activity/Vol] 102 U/L High <=31 [facility] Comment on above: Result Comment: Hemo lysis present, Results??could be affected. ?? Performed By: #### L 100.0100, L500.4050, L501.2450 ####[facility] [address] [place], [address] Bilirubin [Mass/Vol] 2.15 mg/dL High 0.00-1.30 [facility] Comment on above: Performed By: #### L 100.0100, L500.4050, L501.2450 ####[facility] [address] [place], [address] BUN/CRE 17.0 RATIO Normal 10-20 [facility] Comment on above: Performed By: #### L 100.0100, L500.4050, L501.2450 ####[facility] [address] [place], [address] Calcium [Mass/Vol] 9.7 mg/dL Normal 7.6-11.0 [facility] Comment on above: Performed By: #### L 100.0100, L500.4050, L501.2450 ####[facility] [address] [place], [address] Chloride [Moles/Vol] 99 mmol/L Normal 98-108 [facility] Comment on above: Performed By: #### L 100.0100, L500.4050, L501.2450 ####[facility] [address] [place], [address] CO2 [Moles/Vol] 23.2 mmol/L Normal 21.0-32.0 [facility] Comment on above: Performed By: #### L 100.0100, L500.4050, L501.2450 ####[facility] [address] [place], [address] Creatinine [Mass/Vol] 0.69 mg/dL Low 0.70-1.20 [facility] Comment on above: Performed By: #### L 100.0100, L500.4050, L501.2450 ####[facility] [address] [place], [address] ECRCL 81.88 ml/min Normal 50-250 [facility] Comment on above: Performed By: #### L 100.0100, L500.4050, L501.2450 ####[facility] [address] [place], [address] GAP 17 High 5-15 [facility] Comment on above: Performed By: #### L 100.0100, L500.4050, L501.2450 ####[facility] [address] [place], [address] GFR/1.73 sq M.predicted among non-blacks MDRD (S/P/Bld) [Vol rate/Area] 101 mL/min/{1.73_m2} Normal >60 [facility] Comment on above: Result Comment: mL/m in/1.73m2 CKD-EPI Creatinine Equation (2020) Performed By: #### L 100.0100, L500.4050, L501.2450 ####[facility] [address] [place], [address] Globulin (S) [Mass/Vol] 3.8 g/dL Normal 2.2-4.2 [facility] Comment on above: Performed By: #### L 100.0100, L500.4050, L501.2450 ####[facility] [address] [place], [address] Glucose [Mass/Vol] 160 mg/dL High 70-99 [facility] Comment on above: Performed By: #### L 100.0100, L500.4050, L501.2450 ####[facility] [address] [place], [address] Potassium [Moles/Vol] 4.5 mmol/L Normal 3.3-5.1 [facility] Comment on above: Result Comment: Hemo lysis present, Results??could be affected. ?? Performed By: #### L 100.0100, L500.4050, L501.2450 ####[facility] [address] [place], [address] Sodium [Moles/Vol] 139 mmol/L Normal 133-145 [facility] Comment on above: Performed By: #### L 100.0100, L500.4050, L501.2450 ####[facility] [address] [place], [address] T PROT 8.1 g/dL Normal 5.9-8.4 [facility] Comment on above: Performed By: #### L 100.0100, L500.4050, L501.2450 ####[facility] [address] [place], [address] Urea nitrogen [Mass/Vol] 12 mg/dL Normal 4-19 [facility] Comment on above: Performed By: #### L 100.0100, L500.4050, L501.2450 ####[facility] [address] [place], [address] Emergency Department Summary on 12-29-2024 Emergency Department Summary [facility] Medical Records Department [address] [place] [address] Emergency Department Summary 12/29/24 MR#: [id number] Acct: [id number] Name: NOEMI ALONSO Rep #: [id number] : 1965 59 From: Freedom Alexander MD PCP: Dr. Osvaldo Sue MD Status:REG ER Location: ED HPI History of Present Illness Chief Complaint: Nausea/Vomiting Narrative Narrative: 59-year-old female past medical history of hypertension, recent UTI, previous gastroenteritis presents with nausea and vomiting and decreased p.o. intake. She relates history that she was seen in [place] 1 to 2 weeks ago, and was given something for her nausea and vomiting, and sent home. She fell and broke her right arm and is currently in a sling. Since Tuesday, approximately 5 to 6 days ago she was unable to keep any of her medications down and has had nausea and vomiting but no diarrhea. She feels somewhat feverish as well. States she cannot take her pain medications. She is also unable to take her antibiotics for a urinary tract infection. Her fianc??? states that when this happened to her approximately a year ago she had to be admitted for rehydration. [facility] Medical History Old myocardial infarction Mixed hyperlipidemia GERD (gastroesophageal reflux disease) Essential hypertension Lung nodules Aneurysm of left subclavian artery Chest pain Dehydration Former tobacco use Migraine Hypertension Elevated LFTs Hypokalemia Gastroenteritis No significant past medical history Home Medications ???Medication ???Instructions ???Recorded ???Last Taken ???Type propranolol 160 mg capsule,24 160 mg PO DAILY 05/03/19 Unknown H istory hr,extended release famotidine 20 mg tablet 20 mg PO BID #60 tabs 05/04/19 Unk nown Rx naproxen 500 mg tablet 500 mg PO BID #14 tabs 04/15/20 Un known Rx atorvastatin 20 mg tablet 20 mg PO QHS 08/19/22 Unknown Hist ory loratadine 10 mg tablet 10 mg PO DAILY 08/19/22 Unknown Hi story omeprazole 40 mg capsule,delayed 40 mg PO DAILY 08/19/22 Unknown Hi story release sumatriptan succinate 6 mg/0.5 mL 6 mg subcut Q1-4H PRN migraine Unknown History subcutaneous pen injector headache gabapentin 300 mg capsule 300 mg PO TID 08/09/24 Unknown His tory ondansetron HCl 4 mg tablet 4 mg PO Q6H PRN nausea and vomitin g 08/09/24 Unknown History trazodone 50 mg tablet 50 mg PO QHS 08/09/24 Unknown Hist ory promethazine 25 mg tablet 25 mg PO Q6H PRN nausea and Unknown Rx vomiting #15 tabs Allergy/AdvReac Type Severity Reaction Status Date / Time No Known Allergies Allergy Verified 12/29/24 10:58 Surgical History History of left heart catheterization (LHC) ( 04/29/14) Social History Smoking Status: Former smoker ROS ROS ED ROS Narrative Review of systems positive for nausea and vomiting, 4-5 episodes in the last 24 hours. Unable to eat or drink for the last 5 days. Subjective fever. Denies diarrhea. Positive diffuse abdominal pain. No exacerbating or alleviating factors. Pain in right arm from fracture. EXAM Physical Exam Narrative Exam Narrative: Afebrile. Vital signs noted. Nontoxic-appearing. Cardiovascular examination reveals mild bradycardia. Lungs are clear to auscultation bilaterally. Abdomen is soft with diffuse tenderness to palpation without guarding or rebound. Positive bowel sounds. Neurological examination is nonfocal, nonlateralizing. Musculoskeletal examination shows right arm in sling. Const Vital Signs: 12/29/24 10:58 12/29/24 12:57 12/29/24 13:54 Temperature 98.6 F 98.6 F Temperature Source Temporal Pulse Rate 41 L 96 96 Respiratory Rate 18 18 Blood Pressure 147/91 H 152/90 H 152/90 H Blood Pressure Mean 109 110 110 Pulse Ox 99 98 98 Oxygen Delivery Method Room Air Room Air MDM MDM MDM Narrative Medical decision making narrative: Differential diagnosis includes but not limited to gastritis versus gastroenteritis versus pancreatitis versus bowel obstruction versus partial small bowel obstruction versus colitis. Comprehensive workup was pursued. Patient not tachycardic. As she has been unable to take her medication/analgesic for her right arm fracture, she was administered morphine as well as ondansetron. Comprehensive workup was pursued. She has had prior abdominal surgeries CT of the abdomen and pelvis with IV contrast will be obtained to help rule out partial's versus complete obstruction of the bowel. I reviewed her laboratory work and she has slight leukocytosis of 12.1, compared to the prior labs, has been higher and more frequent. Hemoglobin 14.8, hematocrit 41.8. Electrolyte p (more content not included)... Normal [facility] Eosinophil percentageOrdered By: Freedom Alexander on 12-29-2024 Eosinophils/100 WBC (Bld) 0.8 % 0-5 [facility] Erythrocyte distribution wid th ratioOrdered By: Freedom Alexander on 12-29-2024 Erythrocyte distribution width (RBC) [Ratio] 13.4 % 11.6-14.6 [facility] Erythrocyte distribution wid th standard deviationOrdered By: Freedom Alexander on 12-29-2024 Erythrocyte distribution width (RBC) [Ratio] 43.6 fl 35.1-43.9 [facility] Glomerular filtration rate ( GFR) estimation/1.73 sq m using serum, plasma, or whole bOrdered By: Freedom Alexander on 12-29-2024 GFR/1.73 sq M.predicted among non-blacks MDRD (S/P/Bld) [Vol rate/Area] 101 mL/min/{1.73_m2} >60 [facility] Comment on above: mL/min/1.73m2 CKD-EP I Creatinine Equation (2020) Hematocrit Auto (Bld) [Volum e fraction]Ordered By: Freedom Alexander on 12-29-2024 Hematocrit (Bld) [Volume fraction] 41.8 % 37-47 [facility] Hemoglobin measurementOrdere d By: Freedom Alexander on 12-29-2024 Hemoglobin (Bld) [Mass/Vol] 14.8 g/dL 12.0-15.0 [facility] Immature granulocytes/100 WB C Auto (Bld)Ordered By: Freedom Alexander on 12-29-2024 Immature granulocytes/100 WBC (Bld) 0.300 % 0.0-0.9 [facility] Comment on above: IG% - Immature Granu locytes (promyelocytes, myelocytes and metamyelocytes) > 1% indicates that a LEFT SHIFT is Present. Ketones Test strip Ql (U)Ord ered By: Freedom Alexander on 12-29-2024 Ketones Ql (U) 15 mg/dl High Negative [facility] - Chemistry and C hemistry - challengeOrdered By: Freedom Alexander on 12-29-2024 AST [Catalytic activity/Vol] 102 U/L High <32 [facility] Comment on above: Hemolysis present, R esults could be affected. Lipaseon 12-29-2024 Lipase [Catalytic activity/Vol] 44 U/L Normal 13-75 [facility] Comment on above: Result Comment: Nikita johnson note: LIPASE revised reference range effective 22. New Lipase methodology. Expected to produce lower values than the previous assay method. NEW Reference Range: 13 - 75 U/L Performed By: #### L 100.0100, L500.4050, L501.2450 ####[facility] [id number] [facility] [place], [address] Lipase measurementOrdered By : Freedom Alexander on 12-29-2024 Lipase [Catalytic activity/Vol] 44 U/L 13-75 [facility] Comment on above: Please note:LIPASE r evised reference range effective 22. New Lipase methodology. Expected to produce lower values than the previous assay method. NEW Reference Range: 13 - 75 U/L MCV (mean corpuscular volume ) determinationOrdered By: Freedom Alexander on 12-29-2024 MCV (RBC) [Entitic vol] 90.1 fL 81-99 [facility] Mean corpuscular hemoglobin (MCH) determinationOrdered By: Freedom Alexander on 12-29-2024 MCH (RBC) [Entitic mass] 31.9 pg 27.0-32.0 [facility] Mean corpuscular hemoglobin concentration (MCHC) determinationOrdered By: Freedom Alexander on 12-29-2024 MCHC (RBC) [Mass/Vol] 35.4 g/dL 32-36 [facility] Mean platelet volume determi nationOrdered By: Freedom Alexander on 12-29-2024 Platelet mean volume (Bld) [Entitic vol] 9.8 fL 6.2-12.0 [facility] Microscopic analysis of urin e for red blood cells (RBC)Ordered By: Freedom Alexander on 12-29-2024 Microscopic analysis of urine for red blood cells (RBC) 0 SEEN /hpf 0-5 [facility] Monocyte percentageOrdered B y: Freedom Alexander on 12-29-2024 Monocytes/100 WBC (Bld) 7.2 % 0-10 [facility] Mucus LM Ql (Urine sed)Order ed By: Freedom Alexander on 12-29-2024 Mucus Ql (Urine sed) 0 SEEN /hpf [facility] Neutrophil percentageOrdered By: Freedom Alexander on 12-29-2024 Neutrophils/100 WBC (Bld) 67.7 % 47-70 [facility] Nitrite Test strip Ql (U)Ord ered By: Freedom Alexander on 12-29-2024 Nitrite Ql (U) Negative Negative [facility] Nucleated red blood cell per centageOrdered By: Freedom Alexander on 12-29-2024 Nucleated RBC/100 WBC (Bld) [Ratio] 0 % 0-5 [facility] Platelet countOrdered By: Nayan Alexander on 12-29-2024 Platelets (Bld) [#/Vol] 389 10*3/uL 150-450 [facility] Potassium measurement (mass/ volume)Ordered By: Freedom Alexander on 12-29-2024 Potassium (Unsp spec) [Mass/Vol] 4.5 mmol/L 3.3-5.1 [facility] Comment on above: Hemolysis present, R esults could be affected. Protein Test strip Ql (U)Ord ered By: Freedom Alexander on 12-29-2024 Protein Ql (U) 30 mg/dl High Negative [facility] RBC Auto (Bld) [#/Vol]Ordere d By: Freedom Alexander on 12-29-2024 RBC (Bld) [#/Vol] 4.64 10*6/uL 4.2-5.4 [facility] Serum creatinine measurement (mass/volume)Ordered By: Freedom Alexander on 12-29-2024 Creatinine [Mass/Vol] 0.69 mg/dL Low 0.70-1.20 [facility] Serum globulin measurementOr dered By: Freedom Alexander on 12-29-2024 Globulin (S) [Mass/Vol] 3.8 g/dL 2.2-4.2 [facility] Serum glucose measurement (m ass/volume)Ordered By: Freedom Alexander on 12-29-2024 Glucose [Mass/Vol] 160 mg/dL High 70-99 [facility] Serum or plasma alanine crowder otransferase (ALT) measurementOrdered By: Freedom Alexander on 12-29-2024 ALT [Catalytic activity/Vol] 153 U/L High <35 [facility] Comment on above: Hemolysis present, R esults could be affected. Serum or plasma albumin lani urement (mass/volume)Ordered By: Freedom Alexander on 12-29-2024 Albumin [Mass/Vol] 4.3 g/dL 3.5-5.0 [facility] Serum or plasma albumin/glob ulin mass ratioOrdered By: Freedom Alexander on 12-29-2024 Albumin/Globulin [Mass ratio] 1.1 {ratio} 0.9-2.4 [facility] Serum or plasma alkaline chelita sphatase measurementOrdered By: Freedom Alexander on 12-29-2024 ALP [Catalytic activity/Vol] 112 U/L High 35-104 [facility] Serum or plasma calcium lani urement (mass/volume)Ordered By: Freedom Alexander on 12-29-2024 Calcium [Mass/Vol] 9.7 mg/dL 7.6-11.0 [facility] Serum or plasma urea nitroge n measurement (mass/volume)Ordered By: Freedom Alexander on 12-29-2024 Urea nitrogen [Mass/Vol] 12 mg/dL 4-19 [facility] Sodium levelOrdered By: Freedom Alexander on 12-29-2024 Sodium [Moles/Vol] 139 mmol/L 133-145 [facility] Squamous epithelial cells de tection in urine sediment by light microscopyOrdered By: Freedom Alexander on 12-29-2024 Epithelial cells.squamous LM Ql (Urine sed) 10-25 SEEN /hpf 5-10 [facility] Total proteinOrdered By: Savanna Alexander on 12-29-2024 Protein [Mass/Vol] 8.1 g/dL 5.9-8.4 [facility] Urinalysis, Completeon 12-29 BACTERIA 2+ /hpf Normal None Seen [facility] Comment on above: Order Comment: CLEAN CATCH Performed By: #### L 400.0001 #### [facility] [address] [place], [address] EPI,SQUAMOUS 10-25 SEEN Normal 5-10 [facility] Comment on above: Order Comment: CLEAN CATCH Performed By: #### L 400.0001 #### [facility] [address] [place], [address] WBC 5-10 SEEN Normal 0-5 [facility] Comment on above: Order Comment: CLEAN CATCH Performed By: #### L 400.0001 #### [facility] [address] [place], [address] Mucus Ql (Urine sed) 0 SEEN Normal [facility] Comment on above: Order Comment: CLEAN CATCH Performed By: #### L 400.0001 #### [facility] [address] [place], [address] RBC 0 SEEN Normal 0-5 [facility] Comment on above: Order Comment: CLEAN CATCH Performed By: #### L 400.0001 #### [facility] [address] [place], [address] Urine clarityOrdered By: Savanna Alexander on 12-29-2024 Clarity (U) Cloudy Clear [facility] Urine color determinationOrd ered By: Freedom Alexander on 12-29-2024 Color (U) Yellow Yellow [facility] Urine glucose detectionOrder ed By: Freedom Alexander on 12-29-2024 Glucose Ql (U) Normal mg/dl Normal [facility] Urine leukocyte esterase det ection by dipstickOrdered By: Freedom Alexander on 12-29-2024 Leukocyte esterase Test strip Ql (U) 100 /ul High Negative [facility] Urine pHOrdered By: Freedom subramanian on 12-29-2024 pH (U) 6.5 [pH] 5.0 - 8.0 [facility] Urine sediment bacteria coun t by microscopy (number/high power field)Ordered By: Freedom Alexander on 12-29-2024 Bacteria LM.HPF (Urine sed) [#/Area] 2 /[HPF] None Seen [facility] Urine specific gravity measu rementOrdered By: Freedom Alexander on 12-29-2024 Specific gravity (U) [Rel density] 1.010 1.002-1.030 [facility] Urine urobilinogen measureme ntOrdered By: Freedom Alexander on 12-29-2024 Urobilinogen Ql (U) 8 mg/dl High Normal [facility] White blood cell (WBC) count Ordered By: Freedom Alexander on 12-29-2024 WBC (Bld) [#/Vol] 12.1 10*3/uL High 4.4-11.0 [facility] White blood cell countOrdere d By: Freedom Alexander on 12-29-2024 White blood cell count 5-10 SEEN /hpf 0-5 [facility] CNOVon 12-26-2024 CNOV Office Visit (ORMDNA ) NOEMI ALONSO ([id number]) 1965 F Date Time Provider Department 12/26/24 [...] Duration Units: Days Frequency: Continuous Intervention/Comfort measure: Medication;Relaxation ;Reposition;Positioni ng [place], sling HPI: Right Shoulder Pain: - Noemi Alonso fell on right shoulder 2 days ago while running in the rain; shoes gave out. - Evaluated at [facility] ER post-fall. - Pain rated as 10/10. - Taking Percocet 5/325 mg, but Noemi reports inadequate pain relief; only prescribed 10 [...] negative Other Erythema: absent Sensation: normal Pulse: pre (more content not included)... Normal [facility] XR SHLDR >/=3V AP/AMRIT AP/OTH R RTon 12-26-2024 XR SHLDR >/=3V AP/AMRIT AP/OTHR RT * * *Final Report* * * DATE [...] is maintained. IMPRESSION: Comminuted fracture proximal humerus Internet Programmer: PSCB Transcribe Date/Time: Dec 28 2024 3:36P Dictated by : REECE DISLA DO This examination was interpreted and the report reviewed and electronically signed by: REECE DISLA DO on Dec 28 2024 3:40PM EST [id number] N [facility] 12-25-2024 [facility] Telephone (FAMPWS) NOEMI ALONSO ([id number]) 1965 F Date Time Provider Department 12/25/24 OSVALDO SUE During your visit today, we recorded the following information about you: Salome Barnes RN 12/25/2024 8:56 AM Signed Patient calls and states that she fell yesterday evening. Patient reports that was seen in [place] and she was diagnosed with a broken right arm (around the arm pit). Patient was referred to an orthopedic doctor, Dr. Larsen ([facility]). [facility] does not take patient's insurance. Patient asking if a referral can be placed so that she can she an orthopedic doctor for this? Please review and advise, GET Jane Danielle, APRN.[facility] 12/25/2024 9:34 AM Signed Please let patient know I have placed referral and assist her in scheduling. Salome Barnes RN 12/25/2024 10:25 AM Signed Patient called and notified that referral placed. Patient transferred to engineering tech to schedule appointment. Salome Barnes RN Allergies As of Date: 12/25/2024 (No Known Allergies) Date Reviewed: 10/24/2024 Reviewed by: Breann Davis LPN - Fully Assessed Reason for Visit: Orders [681] Primary Visit Diagnosis:Closed fracture of right upper extremity, initial encounter [S42.301A] Order(s):CONSULT TO ORTHOPAEDICS [9026] Order #: [id number]: 1 FUTURE Prescriptions as of 12/25/2024 - [...] Well adult exam [Z00.00] 10/06/2018 History of SD (myocardial infarction) [I25.2] 07/11/2019 Former smoker [Z87.891] 2020 Lung nodules [R91.8] 2020 Elevated LFTs [R79.89] 2020 GERD without esophagitis [K21.9] 12/12/2020 Elevated hemoglobin A1c [R73.09] 07/18/2021 Medication management [Z79.899] 07/18/2021 Metabolic dysfunction-associate d steatohepatiti*2021 Female genital prolapse [N81.9] 08/17/2021 Pelvic pain [R10.2] 10/06/2021 Levator spasm [M62.838] 11/17/2021 Mixed stress and urge urinary incontinence [N39*11/17/2021 Cystocele, midline [N81.11] 11/17/2021 Screening for colon cancer [Z12.11] 06/04/2022 Situational depression [F43.21] 06/04/2022 Aneurysm of left subclavian artery (HCC) [I72.8]07/21/2022 Ovarian cyst, bilateral [N83.201, N83.202] 08/29/2024 Thickened endometrium [R93.89] 08/29/2024 Encounter Status:Closed by SALOME BARNES on 12/25/24 Normal [facility] BMP with eGFRon 12-24-2024 AGE 59 years Normal [facility] Comment on above: Performed By: #### 2 69184 #### [facility],[address] [place] [address] Anion gap [Moles/Vol] 11 mmol/L Normal 10 - 20 [facility] Comment on above: Performed By: #### 2 73466 #### [facility],[address] [place] [address] BMP with eGFR Normal [facility] Comment on above: Result Comment: BASI C METABOLIC PANEL Performed By: #### 2 92217 #### [facility],[address] [place] [address] Calcium [Mass/Vol] 9.5 mg/dL Normal 8.5 - 10.1 [facility] Comment on above: Performed By: #### 2 42885 #### [facility],[address] [place] [address]89[address] Chloride [Moles/Vol] 100 mmol/L Normal 98 - 107 [facility] Comment on above: Performed By: #### 2 73102 #### [facility],[address] [place] [address] CO2 [Moles/Vol] 30.9 mmol/L Normal 21.0 - 32.0 [facility] Comment on above: Performed By: #### 2 20770 #### [facility],[address] [place] [address] Creatinine [Mass/Vol] 0.75 mg/dL Normal 0.55 - 1.02 [facility] Comment on above: Performed By: #### 2 25718 #### [facility],[address] [place] [address] GFR/1.73 sq M.predicted among non-blacks MDRD (S/P/Bld) [Vol rate/Area] mL/min/{1.73_m2} Normal 60 - 999 [facility] Comment on above: Performed By: #### 2 15026 #### [facility],[address] [place] [address] Result Comment: ACCO RDING TO THE NATIONAL KIDNEY DISEASE EDUCATION PROGRAM(NKDE), A NORMAL eGFR IS A VALUE GREATER THAN OR EQUAL TO 60 ML/MIN/1.73 SQ METERS. CHRONIC KIDNEY DISEASE: <60mL/MIN/1.73 SQ METERS KIDNEY FAILURE: <15mL/MIN/1.73 SQ METERS THIS TEST SHOULD ONLY BE USED FOR PATIENTS 18 YEARS OF AGE AND OLDER. Glucose [Mass/Vol] 123 mg/dL High 74 - 106 [facility] Comment on above: Performed By: #### 2 39131 #### [facility],[address] [place] [address]182 Potassium [Moles/Vol] 4.1 mmol/L Normal 3.5 - 5.1 [facility] Comment on above: Performed By: #### 2 19657 #### [facility],[address] [place] [address]07[address] Sodium [Moles/Vol] 138 mmol/L Normal 136 - 145 [facility] Comment on above: Performed By: #### 2 85535 #### [facility],[address] [place] [address]3487 Urea nitrogen [Mass/Vol] 9 mg/dL Normal 7 - 18 [facility] Comment on above: Performed By: #### 2 88442 #### [facility],[address] [place] [address] 28055 CBC + DIFFon 12-24-2024 Baso # 0.05 x10EE3/UL Normal 0.00 - 0.10 [facility] Comment on above: Performed By: #### 2 07350 #### [facility],[address] [place] [address] Basophils/100 WBC (Bld) 0.3 % Normal 0.0 - 2.0 [facility] Comment on above: Performed By: #### 2 71629 #### [facility],[address] [place] [address] CBC + DIFF Normal [facility] Comment on above: Result Comment: CBC- COMPLETE BLOOD COUNT Performed By: #### 2 49005 #### [facility],[address] [place] [address] EO # 0.42 x10EE3/UL Normal 0.00 - 0.50 [facility] Comment on above: Performed By: #### 2 19651 #### [facility],[address] [place] [address] Eosinophils/100 WBC (Bld) 2.8 % Normal 0.0 - 7.0 [facility] Comment on above: Performed By: #### 2 88676 #### [facility],[address] [place] [address] Erythrocyte distribution width (RBC) [Ratio] 13.3 % Normal 12.0 - 15.6 [facility] Comment on above: Performed By: #### 2 23210 #### [facility],[address] [place] [address] Hematocrit (Bld) [Volume fraction] 43.8 % Normal 34.0 - 46.0 [facility] Comment on above: Performed By: #### 2 82547 #### [facility],[address] [place] [address] Hemoglobin (Bld) [Mass/Vol] 15.1 g/dL Normal 12.0 - 16.0 [facility] Comment on above: Performed By: #### 2 72374 #### [facility],[address] [place] [address] Lymph # 5.78 x10EE3/UL High 0.80 - 2.80 [facility] Comment on above: Performed By: #### 2 09295 #### [facility],[address] [place] [address] Lymphocytes/100 WBC (Bld) 38.4 % Normal 20.0 - 45.0 [facility] Comment on above: Performed By: #### 2 29933 #### [facility],[address] [place] [address] MANUAL DIFF N/A Normal [facility] Comment on above: Performed By: #### 2 87042 #### [place] [address] MCH (RBC) [Entitic mass] 31 pg Normal 27 - 33 [facility] Comment on above: Performed By: #### 2 71443 #### [place] [address] MCHC 34 X10 3 Normal 32 - 36 [facility] Comment on above: Performed By: #### 2 39519 #### [place] [address] MCV (RBC) [Entitic vol] 91 fL Normal 80 - 99 [facility] Comment on above: Performed By: #### 2 80660 #### [place] [address] Warren # 0.98 x10EE3/UL Normal 0.20 - 1.00 [facility] Comment on above: Performed By: #### 2 42325 #### [place] [address] MONOS % 6.5 % Normal 0.0 - 10.0 [facility] Comment on above: Performed By: #### 2 54304 #### [facility],[address],[place] [address] Morphology Chip (Bld) [Interp] N/A Normal [facility] Comment on above: Performed By: #### 2 87519 #### [facility],[address] [place] [address] Neut # 7.82 x10EE3/UL High 1.50 - 7.10 [facility] Comment on above: Performed By: #### 2 88577 #### [address] [address] Neutrophils/100 WBC (Bld) 51.9 % Normal 46.0 - 76.0 [facility] Comment on above: Performed By: #### 2 95095 #### [address] [address] PLATELET 356 x10EE3/UL Normal 150 - 450 [facility] Comment on above: Performed By: #### 2 25282 #### [address] [address] Platelet mean volume (Bld) [Entitic vol] 8.2 fL Normal 6.6 - 10.5 [facility] Comment on above: Result Comment: AUTO MATED DIFFERENTIAL Performed By: #### 2 64617 #### [address] [address] RBC 4.80 x 10EE6/UL Normal 4.10 - 5.30 [facility] Comment on above: Performed By: #### 2 51618 #### [address] [address] WBC 15.1 x 10EE3/UL High 4.5 - 10.8 [facility] Comment on above: Performed By: #### 2 25712 #### [facility],[address] [place] [address] HAND 2 VIEW [facility] 12-24-2024 HAND [address] ? [place] [address] ? Patient: NOEMI ALONSO Phone#: : [phone] Age: 59 Gender: F Pt. Type: ER Account: [id number] Location: 052 Ordering: DR. KADEN MARCUM Exam Date: 12/24/2024/19:06 Family Phys: OSVALDO SUE Charge Code: [id number] Physician: [place] Order #: [id number] Dose#: PROCEDURE: X-RAY HAND LT 2 VIEWS [...] Serenity Krause MD on 12/25/2024 at 10:31 Normal [facility] KNEE 2 VIEWS RTon 12-24-2024 KNEE 2 VIEWS RT [address] ? [place] [address] ? Patient: NOEMI ALONSO Phone#: : [phone] Age: 59 Gender: F Pt. Type: ER Account: [id number] Location: 052 Ordering: DR. KADEN MARCUM Exam Date: 12/24/2024/19:09 Family Phys: OSVALDO SUE Charge Code: [id number] Physician: [place] Order #: [id number] Dose#: PROCEDURE: X-RAY KNEE RT 2 VIEWS [...] Serenity Krause MD on 12/25/2024 at 10:33 Normal [facility] PROTHROMBIN TIME AND INRon 0 12-24-2024 INR Coag (PPP) [Relative time] 1.0 {INR} Normal 0.8 - 1.2 [facility] Comment on above: Result Comment: T HE HEMOSIL THROMBOPLASTIN REAGENT USED IN THE PROTHROMBIN TIME TEST INTERACTS WITH THE DRUG CUBICIN (DAPTOMYCIN) AND WILL RESULT IN FALSELY ELEVATED PT / INR RESULTS INR INTERPRETATION INR INDICATION PREVENTION AND TREATMENT OF THROMBOEMBOLISM ASSOCIATED WITH: 2.0 - 3.0 ATRIAL FIBRILLATION, BIOPROSTHETIC HEART VALVES, PULMONARY EMBOLISM, VENOUS THROMBOSIS, SYSTEMIC EMBOLISM POST MYOCARDIAL INFARCTION 2.5 - 3.5 MECHANICAL HEART VALVES Performed By: #### 2 94145 #### [facility],[address] [place] [address] PROTHROMBIN TIME AND INR Normal [facility] Comment on above: Result Comment: PROT HROMBIN TIME AND INR Performed By: #### 2 03414 #### [facility],[address] [place] [address] PT-COUMADIN 12.0 sec Normal 9.3 - 14.1 [facility] Comment on above: Performed By: #### 2 81743 #### [facility],[address] [place] [address] SHOULDER COMPLETE RTon 12-24 SHOULDER COMPLETE RT [address] ? [place] [address] ? Patient: NOEMI ALONSO Phone#: : [phone] Age: 59 Gender: F Pt. Type: ER Account: [id number] Location: [facility] Ordering: DR. 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 Allergies verified and 17:12/17/2024 mL/hr (NOW x1) confirmed 5 rights. IV patency established. IV site Michelle Swann, checked: no pain, redness, or swelling. IV flushed R.N. thoroughly pre-medication administration. Information Stopped reviewed. Verbalizes understanding. - 17:14 Michelle 18:19 12/17/2024 Cecilia Swann R.N. 18:19 12/17 Medication Discontinued: bag #1 infused. Scanned Total amount infused: 1000 mL. IV patency established. IV site checked: no pain, redness, or swelling. IV flushed thoroughly post-medication administration. - 18:19 Mcihelle Swann R.N. Zofran IVP 4 mg 17:12/17 Zofran IVP 4 mg given via Site# 1. Allergies Given (NOW x1) verified and confirmed 5 rights. IV patency established. IV 17:14 12/17/2024 site checked: no pain, redness, or swelling. IV flushed Michelle Swann thoroughly pre-medication administration. Information R.N. reviewed with patient. Verbalizes understanding. - 17:17 Scanned Michelle Swann R.N. 1 of 3 [employer] - NOEMI ALONSO, : 1965, , Bentyl IM 20 [...] 18:41 12/17/2024 Michelle Swann R.N. Scanned DiphenhydrAMI 18:12/17 DiphenhydrAMINE (Benadryl) IVP 25 mg Given NE [...] 18:41 Michelle Swann R.N. 2 of 3 [employer] - NOEMI ALONSO, : 1965, , cefTRIAXone 20:12/17 cefTRIAXone (Rocephin) IVPB 1gm/50ml NS 1 Started [...] reviewed. Verbalizes understanding. - 20:27 Ana Cristina Buchanan Scanned at 100 mL/hr R.N. (NOW x1) 20:57 12/17 Medication Discontinued: IV infused. Total amount infused: 50 mL. IV patency established. IV site checked: no pain, redness, or swelling. IV flushed thoroughly post-medication administration. - 21:12 Ana Cristina Buchanan R.N. 3 of 3 [facility] ED NURSES CLINICAL NOTEon ED NURSES CLINICAL NOTE Nurse Narrative - NOEMI ALONSO, : 1965, , Nurse Clinical Narrative [facility] [address] [place] [address] [phone] 12/17/2024 16:11:00 Patient: NOEMI ALONSO Sex: Female : 1965 Age: 59y [...] kg, Ht/Rafy: 61.0 in, BMI: 30.23 -- 16:29 12/17/24 EDT Hedy Mansfield R.N. Medications: trazodone 50 mg tablet: 1 tablet once a day . -- 16:28 12/17/24 EDT Hedy Mansfield R.N. 1 of 6 Nurse Narrative - NOEMI ALONSO, : 1965, , propranolol ER 160 mg capsule,24 hr,extended release: 1 capsule once a day . -- 16:12/17/24 EDT Hedy Mansfield R.N. omeprazole 40 mg capsule,delayed release: 1 capsule once a day . -- 16:12/17/24 EDT Hedy Mansfield R.N. loratadine 10 mg tablet: 1 tablet once a day . -- 16:28 12/17/24 EDT Hedy Mansfield R.N. gabapentin 300 mg capsule: 1 capsule three times a day . -- 16:12/17/24 EDT Hedy Mansfield R.N. atorvastatin 20 mg tablet: 1 tablet once a day . -- 16:12/17/24 EDT Hedy Mansfield R.N. 16:12/17/24. Preferred Pharmacy: [place]. -- 16:33 12/17/24 EDT Hedy Mansfield R.N. Allergies: no known drug allergies -- 16:27 12/17/24 EDT Hedy Mansfield R.N. Problems: fatty liver -- 16:12/17/24 EDT Hedy Mansfield R.N. Myocardial Infarction -- 16:12/17/24 EDT Hedy Mansfield R.N. Hypertension -- 16:12/17/24 EDT Hedy Mansfield R.N. Hyperlipidemia -- 16:12/17/24 EDT Hedy Mansfield R.N. Gastroesophageal Reflux Disease -- 16:12/17/24 EDT Hedy Mansfield R.N. Headache -- 16:12/17/24 EDT Hedy Mansfield R.N. Surgeries: Cholecystectomy -- 16:12/17/24 CEET Hedy Mansfield R.N. Tubal Ligation -- 16:12/17/24 EDT Hedy Mansfield R.N. History 16:12/17/24. SOCIAL HX: [...] the 2 of 6 Nurse Narrative - NOEMI ALONSO, : 1965, , question(s) Have you recently felt down, depressed, or hopeless? and Do you have thoughts of harming or killing yourself?. FALL RISK ASSESSMENT: Fall risk assessment completed. No risk factors identified. -- 16:33 12/17/24 EDT Hedy Mansfield R.N. Interventions 16:26 12/17/24. Advanced care plan discussed with patient. Patient does not have advanced directive. -- 16:33 12/17/24 EDT Hedy Mansfield R.N. PHYSICAL ASSESSMENT 17:22 12/17/24. GENERAL [...] dry. Normal skin turgor. -- 17:37 12/17/24 EDT Michelle Swann R.N. NURSING PROGRESS NOTES 16:40 12/17/24. cooking appliance repair technician at the patient's bedside (16:40 12/17/2024). -- 17:39 12/17/24 EDT Michelle Swann R.N. 17:10 12/17/24. IV NS 0.9 % 1000 mL started in bag#1 1000 mL at 999 mL/hr via Site# 1. Allergies verified and confirmed 5 rights. IV patency established. IV site checked: no pain, redness, or swelling. IV flushed thoroughly pre-medication administration. Information reviewed. Verbalizes understanding. -- 17:14 12/17/24 CEET Michelle Swann R.N. 17:14 12/17/24. COVID-19 specimen obtained. Flu swab obtained. -- 17:35 12/17/24 AGNES Swann R.N. 17:12/17/24. Zofran IVP 4 mg given via Site# 1. A (more content not included)... Normal [facility] ED ORDER SHEET (CPOE ONLY)on 12-20-2024 ED ORDER SHEET (CPOE ONLY) Order Sheet - NOEMI ALONSO, : 1965, , Order Sheet [address] [address] [id number] 12/17/2024 Patient: NOEMI ALONSO Sex: Female : 1965 Age: 59y MEASUREMENTS: Wt: 72.6 kg, Ht/Rafy: 61.0 in, BMI: 30.23 ALLERGIES: No known drug allergies MEDICATION/IV/DRIP/FL UID ORDERS Acknowledge Order Description Priority Entered d Completed IV NS 0.9 %1000 mL at 999 16:40 12/17/2024 17:10 17:14 mL/hr (NOW x1) Randy 12/17/2024 12/17/2024 Phi Quiles Shauna Ewing, R.N. R.N. Zofran IVP4 mg (NOW x1) 16:40 12/17/2024 17:10 17:17 Randy 12/17/2024 12/17/2024 Phi Quiles Shauna Ewing, R.N. R.N. Reason for ordering with Benefits outweigh risks --16:40 12/17/2024 Randy alerts: Phi Quiles Bentyl IM20 mg (NOW x1) 16:40 12/17/2024 17:10 17:18 Randy 12/17/2024 12/17/2024 Phi Quiles Shauna Ewing, R.N. R.N. KetorOLAC (Toradol) IVP15 18:27 12/17/2024 18:35 18:42 mg (NOW x1) Randy 12/17/2024 12/17/2024 1 of 4 Order Sheet - NOEMI ALONSO, : 1965, , Phi Quiles Shauna Ewing, R.N. R.N. Reason for ordering with Benefits outweigh risks --18:27 12/17/2024 Randy alerts: Phi Quiles IV NS 0.9 %1000 mL at 999 18:27 12/17/2024 18:35 18:40 mL/hr (NOW x1) Randy 12/17/2024 12/17/2024 Phi Quiles Shauna Ewing R.N. R.N. Reason for ordering with Benefits outweigh risks --18:27 12/17/2024 Randy alerts: Phi Quiles Reglan IVP10 mg (NOW x1) 18:27 12/17/2024 18:35 18:41 Randy 12/17/2024 12/17/2024 Phi Quiles Shauna Ewing, Lesley.N. R.NMarco Antonio Reason for ordering with Benefits outweigh risks --18:27 12/17/2024 Randy alerts: Phi Quiles DiphenhydrAMINE 18:27 12/17/2024 18:35 18:41 (Benadryl) IVP25 mg (NOW Randy 12/17/2024 12/17/2024 x1) Phi Quiles Shauna Ewing, R.N. R.N. Reason [...] Carl, 2 of 4 Order Sheet - NOEMI ALONSO, : 1965, , Phi Quiles R.N. R.N. Lipase Stat Stat 16:40 17:18 17:20 12/17/2024 12/17/2024 12/17/2024 Michelle Carl Lemasters, D.O. R.NMarco Antonio R.N. CMP Stat Stat 16:40 17:18 17:20 12/17/2024 12/17/2024 12/17/2024 Michelle Carl Lemasters, D.O. R.N. R.NMarco Antonio Urinalysis Stat Stat 16:40 17:18 19:00 12/17/2024 12/17/2024 12/17/2024 Michelle Carl Lemasters, D.O. R.N. R.NMarco Antonio Rapid COVID (SARS) Stat 16:40 17:18 17:20 ANTIGEN TEST Stat 12/17/2024 12/17/2024 12/17/2024 Michelle Carl Lemasters, D.O. R.N. R.NMarco Antonio Flu Swab Stat 16:40 17:18 17:20 (Influenzae AAg) 12/17/2024 12/17/2024 12/17/2024 Stat Michelle Carl Lemasters, D.O. R.N. R.NMarco Antonio Urine Culture [CCL] Stat 19:48 20:19 20:19 Stat 12/17/2024 12/17/2024 12/17/2024 Ana Cristina Salter Tessa Miller, D.O. R.N. R.NMarco Antonio 3 of 4 Order Sheet - NOEMI ALONSO, : 1965, , DIAGNOSTIC STUDY ORDERS Acknowledge Order Description Priority Entered d Completed Chest 1V Stat Stat 16:40 12/17/2024 17:18 17:20 Randy 12/17/2024 12/17/2024 Phi Quiles Shauna Ewing R.N. R.N. Reason for Study: Cough STAFF ORDERS Acknowledge Order Description Priority Entered d Collected Completed IV Saline Lock 16:40 17:18 17:20 12/17/2024 12/17/2024 12/17/2024 Michelle Carl Lemasters, D.O. R.N. R.NMarco Antonio [Electronically signed by Len Monge D.O. (12/18/2024 00:05 EDT)] 4 of 4 Normal [facility] ED PHYSICIAN CLINICAL REPORT on 12-20-2024 ED PHYSICIAN CLINICAL REPORT NOEMI Milton : 1965, , Physician Clinical [facility] [address] [place] [address] [phone] 12/17/2024 16:11:00 Patient: NOEMI ALONSO Sex: Female : 1965 Age: 59y [...] nausea, vomiting, diarrhea and abdominal pain. 1 of NOEMI Milton, : 1965, , PAST HISTORY fatty [...] Appearance: Alert. No acute distress. 2 of 25 NOEMI Milton, : 1965, , ENT: Pharynx normal. [...] 27 - 33 Final EDT 3 of 25 NOEMI Milton, : 1965, , 12/17/2024 17:43 MCHC 34 [...] Final Above high normal EDT 12/17/2024 17:43 Warren # 0.82 x10/UL 0.20 - 1.00 Final EDT 12/17/2024 17:43 EO # 0.06 x10/UL 0.00 - 0.50 Final EDT Gianfranco - NOEMI ALONSO, : 1965, , 12/17/2024 17:43 Baso # [...] - 106 Final Above high normal EDT 12/03 (more content not included)... Normal [facility] ED SUPER BILLon 12-20-2024 ED SUPER BILL NOEMI Centeno : 1965, , [id number] [place] [address] [phone] 12/17/2024 Patient: NOEMI ALONSO Sex: Female : 1965 Age: 59y Item Facility Profession Category Description Code al Code Quantity Fee Total Drugs Normal 974779 2 $0.00 $0.00 Saline 1000cc (090060) Nurse/E/M EMERGENCY 326822 1 $0.00 $0.00 DEPARTMEN T VISIT HIGH/URGEN T SEVERITY (07647-01) Nurse/IV/IM/ Drip/IVPB 332439 1 $0.00 $0.00 Infusions initial (64249) Nurse/IV/IM/ Hydration 313107 2 $0.00 $0.00 Infusions additional hour (56186) Nurse/IV/IM/ IM/SQ 388285 1 $0.00 $0.00 Infusions (56365) 1 of 2 NOEMI Centeno, : 1965, , Nurse/IV/IM/ IVP 671979 4 $0.00 $0.00 Infusions additional push (31686) Grand Total $0.00 Providers Phi Ortiz D.O. Chief Complaint COUGH and CHILLS. Principal Diagnosis Vomiting with nausea and dehydration. Acute urinary tract infection with cystitis. No hematuria. ICD-10 Codes N30.90: Cystitis, unspecified without hematuria R11.2: Nausea with vomiting, unspecified 2 of 2 Normal [facility] ED VISIT SUMMARYon ED VISIT SUMMARY Visit Overview - NOEMI ALONSO : 1965, , Visit [address] [address] [id number] 12/17/2024 Patient: NOEMI ALONSO Sex: Female : 1965 Age: 59y 12/20/2024 07:23 AM EDT ED Arrival:16:11 12/17/2024 Status: Recent Travel:no EDT Language:eng Adv Directive:No Isolation Status: Infectious Disease Ethnicity:N Fall Risk:no risk Exposure:no Measurements:5'1 / 154.9 Self-Harm Status:risk Sepsis Screen:negative cm 160.0 lb / 72.6 kg Chief Complaint:RUNNY NOSE, SINUS CONGESTION, SINUS DRAINAGE, (7 days), and ([place]) ALLERGIES No Known Drug Allergies HOME MEDICATIONS atorvastatin 20 mg tablet: 1 tablet once a day . gabapentin 300 mg capsule: 1 capsule three times a day . loratadine 10 mg tablet: 1 tablet once a day . 1 of 4 Visit Overview - NOEMI ALONSO, : 1965, , omeprazole 40 mg [...] mL/hr 2 of 4 Visit Overview - NOEMI ALONSO, : 1965, , IV SITE INFORMATION [...] AAg) 3 of 4 Visit Overview - NOEMI ALONSO, : 1965, , Lipase Rapid COVID (SARS) ANTIGEN TEST Urinalysis Urine Culture [CCL] CLINICAL IMPRESSION ACUTE URINARY TRACT INFECTION WITH CYSTITIS. NO HEMATURIA VOMITING WITH NAUSEA AND DEHYDRATION 4 of 4 Normal [facility] ED VITALS FLOW SHEETon 12-20 ED VITALS FLOW SHEET Vitalfarhana - NOEMI ALONSO, : 1965, , Vital Sign Flow Sheet [address] [address] [id number] 12/17/2024 Patient: NOEMI ALONSO Sex: Female : 1965 Age: 59y [...] 19:48 82 94% 12/17/2024 1 of 4 Vitals - NOEMI ALONSO, : 1965, , 19:45 134/70 93 [...] 18:48 67 98% 12/17/2024 2 of 4 Vitals - NOEMI ALONSO, : 1965, , 18:45 168/93 118 85 [...] 94% 12/17/2024 3 of 4 Vitals - NOEMI ALONSO, : 1965, , 17:31 135/78 98 91 12/17/2024 17:28 91 94% 12/17/2024 17:23 91 93% 12/17/2024 17:20 177/87 123 96 12/17/2024 16:32 172/105 127 103 16 97% 97.5 F 10 12/17/2024 4 of 4 Normal [facility] Bacteria Ur Culton Bacteria identified Cx Nom (U) ORGANISM ID: 1 10,000 -<50,000 CFU/ml Normal urogenital parmjit Normal [facility] Comment on above: Performed By: #### 6 30-4 ####[facility] [id number] [place] [address] [place] CBC + DIFFon 12-17-2024 Baso # 0.03 x10EE3/UL Normal 0.00 - 0.10 [facility] Comment on above: Performed By: #### 2 04246 #### [facility],[address] [place] [address] Basophils/100 WBC (Bld) 0.2 % Normal 0.0 - 2.0 [facility] Comment on above: Performed By: #### 2 46071 #### [facility],[address] [place] [address] CBC + DIFF Normal [facility] Comment on above: Result Comment: CBC- COMPLETE BLOOD COUNT Performed By: #### 2 54027 #### [facility],[address] [place] [address] EO # 0.06 x10EE3/UL Normal 0.00 - 0.50 [facility] Comment on above: Performed By: #### 2 96623 #### [place] [address] Eosinophils/100 WBC (Bld) 0.4 % Normal 0.0 - 7.0 [facility] Comment on above: Performed By: #### 2 78897 #### [place] [address] Erythrocyte distribution width (RBC) [Ratio] 13.5 % Normal 12.0 - 15.6 [facility] Comment on above: Performed By: #### 2 14987 #### [place] [address] Hematocrit (Bld) [Volume fraction] 51.5 % High 34.0 - 46.0 [facility] Comment on above: Performed By: #### 2 81374 #### [facility],[address] [place] [address] Hemoglobin (Bld) [Mass/Vol] 17.7 g/dL High 12.0 - 16.0 [facility] Comment on above: Performed By: #### 2 06818 #### [place] [address] Lymph # 3.17 x10EE3/UL High 0.80 - 2.80 [facility] Comment on above: Performed By: #### 2 49702 #### [facility],[address] [place] [address] Lymphocytes/100 WBC (Bld) 22.7 % Normal 20.0 - 45.0 [facility] Comment on above: Performed By: #### 2 39709 #### [facility],[address] [place] [address] MANUAL DIFF N/A Normal [facility] Comment on above: Performed By: #### 2 39385 #### [facility],[address] [place] [address] MCH (RBC) [Entitic mass] 31 pg Normal 27 - 33 [facility] Comment on above: Performed By: #### 2 36566 #### [place] [address] MCHC 34 X10 3 Normal 32 - 36 [facility] Comment on above: Performed By: #### 2 24808 #### [place] [address] MCV (RBC) [Entitic vol] 91 fL Normal 80 - 99 [facility] Comment on above: Performed By: #### 2 74751 #### [place] [address] Warren # 0.82 x10EE3/UL Normal 0.20 - 1.00 [facility] Comment on above: Performed By: #### 2 02724 #### [place] [address] MONOS % 5.9 % Normal 0.0 - 10.0 [facility] Comment on above: Performed By: #### 2 02451 #### [place] [address] Morphology Chip (Bld) [Interp] N/A Normal [facility] Comment on above: Performed By: #### 2 14812 #### [place] [address] Neut # 9.87 x10EE3/UL High 1.50 - 7.10 [facility] Comment on above: Performed By: #### 2 37444 #### [facility],[address] [place] [address] Neutrophils/100 WBC (Bld) 70.8 % Normal 46.0 - 76.0 [facility] Comment on above: Performed By: #### 2 29957 #### [facility],[address] [place] [address] PLATELET 363 x10EE3/UL Normal 150 - 450 [facility] Comment on above: Performed By: #### 2 13382 #### [facility],[address] [place] [address] Platelet mean volume (Bld) [Entitic vol] 9.0 fL Normal 6.6 - 10.5 [facility] Comment on above: Result Comment: AUTO MATED DIFFERENTIAL Performed By: #### 2 17442 #### [facility],[address] [place] [address] 75574 RBC 5.67 x 10EE6/UL High 4.10 - 5.30 [facility] Comment on above: Performed By: #### 2 63404 #### [facility],[address] [place] [address]22 WBC 14.0 x 10EE3/UL High 4.5 - 10.8 [facility] Comment on above: Performed By: #### 2 99030 #### [facility],[address] [place] [address] CHEST 1 VIEWon 12-17-2024 CHEST 1 VIEW [place] [address] Patient: NOEMI ALONSO Phone#: : 1965 Age: 59 Gender: F Pt. Type: ER Account: [id number] Location: [facility] Ordering: RANDY QUILES Exam Date: 12/17/2024/16:40 Family Phys: OSVALDO SUE Charge Code: [id number] Physician: [place] Order #: [id number] Dose#: PROCEDURE: X-RAY CHEST 1 VIEW COMPARISON: [facility], XR, CHEST 1 VIEW, 06/21/2024, 11:08. INDICATIONS: [...] Elise Strauss MD on 12/17/2024 at 16:59 Normal [facility] CMP with eGFRon 12-17-2024 AGE 59 years Normal [facility] Comment on above: Performed By: #### 2 32237 ####[facility],[address] [place] [address] Albumin [Mass/Vol] 3.8 g/dL Normal 3.4 - 5.0 [facility] Comment on above: Performed By: #### 2 26818 ####[facility],[address] [place] [address]85 Albumin/Globulin [Mass ratio] 1.1 {ratio} Normal 0.9 - 1.6 [facility] Comment on above: Performed By: #### 2 38324 ####[facility],[address] [place] [address] 06156 ALK PHOS 87 U/L Normal 46 - 116 [facility] Comment on above: Performed By: #### 2 82129 ####[facility],[address] [place] [address] 30270 ALT [Catalytic activity/Vol] 138 U/L High 16 - 63 [facility] Comment on above: Performed By: #### 2 66705 ####[facility],[address] [place] [address] Anion gap [Moles/Vol] 12 mmol/L Normal 10 - 20 [facility] Comment on above: Performed By: #### 2 34548 ####[facility],[address] [place] [address]404 AST [Catalytic activity/Vol] 80 U/L High 13 - 39 [facility] Comment on above: Performed By: #### 2 23758 ####[facility],[address] [place] [address]6812 B/C RATIO 23 ratio Normal 0 - 30 [facility] Comment on above: Performed By: #### 2 29508 ####[facility],[address] [place] [address]65[address] Bilirubin [Mass/Vol] 1.4 mg/dL High 0.2 - 1.0 [facility] Comment on above: Performed By: #### 2 54087 ####[facility],[address] [place] [address]1592 Calcium [Mass/Vol] 8.7 mg/dL Normal 8.5 - 10.1 [facility] Comment on above: Performed By: #### 2 10288 ####[facility],[address] [place] [address] 77050 Chloride [Moles/Vol] 107 mmol/L Normal 98 - 107 [facility] Comment on above: Performed By: #### 2 13435 ####[facility],[address] [place] [address] 98551 CMP with eGFR Normal [facility] Comment on above: Result Comment: COMP REHENSIVE METABOLIC PANEL Performed By: #### 2 25246 ####[facility],[address] [place] [address] 14507 CO2 [Moles/Vol] 29.3 mmol/L Normal 21.0 - 32.0 [facility] Comment on above: Performed By: #### 2 33217 ####[facility],[address] [place] [address] 25417 Creatinine [Mass/Vol] 0.66 mg/dL Normal 0.55 - 1.02 [facility] Comment on above: Performed By: #### 2 76285 ####[facility],[address] [place] [address]383 GFR/1.73 sq M.predicted among non-blacks MDRD (S/P/Bld) [Vol rate/Area] mL/min/{1.73_m2} Normal 60 - 999 [facility] Comment on above: Performed By: #### 2 16635 ####[facility],[address] [place], [place] [address] Result Comment: ACCO RDING TO THE NATIONAL KIDNEY DISEASE EDUCATION PROGRAM(NKDE), A NORMAL eGFR IS A VALUE GREATER THAN OR EQUAL TO 60 ML/MIN/1.73 SQ METERS. CHRONIC KIDNEY DISEASE: <60mL/MIN/1.73 SQ METERS KIDNEY FAILURE: <15mL/MIN/1.73 SQ METERS THIS TEST SHOULD ONLY BE USED FOR PATIENTS 18 YEARS OF AGE AND OLDER. Globulin (S) [Mass/Vol] 3.4 g/dL Normal 1.5 - 3.8 [facility] Comment on above: Performed By: #### 2 27969 ####[facility],[address] [place] [address]676 Glucose [Mass/Vol] 120 mg/dL High 74 - 106 [facility] Comment on above: Performed By: #### 2 59262 ####[facility],[address] [place] [address] Potassium [Moles/Vol] 3.1 mmol/L Low 3.5 - 5.1 [facility] Comment on above: Performed By: #### 2 73261 ####[facility],[address] [place] [address] 52999 Protein [Mass/Vol] 7.2 g/dL Normal 6.4 - 8.2 [facility] Comment on above: Performed By: #### 2 04457 ####[facility],[address] [place] [address] 51239 Sodium [Moles/Vol] 145 mmol/L Normal 136 - 145 [facility] Comment on above: Performed By: #### 2 06760 ####[facility],[address] [place] [address] 85271 Urea nitrogen [Mass/Vol] 15 mg/dL Normal 7 - 18 [facility] Comment on above: Performed By: #### 2 35027 ####[facility],[address] [place] [address] [facility] 12-17-2024 [facility] Telephone (PRETTY) GAVINSAM ([id number]) 1965 F Date Time Provider Department 12/17/24 [facility] today, we recorded the [...] if provider would send in Zofran to [facility] in [place] for her. I let her know she [...] she will go to the ER with [facility] or [facility]. She states they usually don't keep her overnight, which is what she needs. She states she needs fluids and nausea medication over night. She reports they went to [facility] and he boyfriend begged them to keep her overnight and they did. I told her I would send the message to the provider, but I didn't think he would send in Zofran for her. Please call and advise. GET Roberts Danielle, HR RECEPTIONIST.RN PSYCH 12/18/2024 8:33 AM Signed Patient will need seen and evaluated. Umm Green RN 12/18/2024 8:58 AM Signed Pt scheduled for [facility] ER f/u on 12/25/24 with Cheryl BAEZ. [...] her yeast infection. Pt uses [facility] in [place] if provider wanted to call in something [...] Well adult exam [Z00.00] 10/06/2018 History of SD (myocardial infarction) [I25.2] 07/11/2019 Former smoker [Z87.891] 2020 Lung nodules [R91.8] 2020 Elevated LFTs [R79.89] 2020 GERD without esophagitis [K21.9] 12/12/2020 Elevated hem (more content not included)... Normal [facility] CORONAVIRUS (SARS) ANTIGEN T Og 12-17-2024 EXTERNAL QC DONE? YES Normal [facility] Comment on above: Performed By: #### 2 97235 ####[facility],[address] [place] [address] INTERNAL CONTROL PASS Normal [facility] Comment on above: Performed By: #### 2 57632 ####[facility],[address] [place] [address] 26221 SARS ANTIGEN Negative Normal NORMAL: NEGATIVE [facility] Comment on above: Performed By: #### 2 24362 ####[facility],[address] [place] [address] 48789 SEND TO ? YES Normal [facility] Comment on above: Result Comment: SARS -CoV-2 THIS TEST IS BEING USED UNDER THE FDA EUA PROCEDURE. THIS ASSAY HAS BEEN VALIDATED AT [facility] FOR USE WITH NASAL AND NASOPHARYNGEAL SWAB [...] WITH PUBLIC HEALTH AUTHORITIES. Performed By: #### 2 97317 ####[place] [id number] INFLUENZA VIRUS RAPID A/Bon 12-17-2024 INFLUENZA VIRUS RAPID A/B INFLUENZA A NEGATIVE INFLUENZA B NEGATIVE INTERNAL NEG QC PASS INTERNAL POS QC PASS EXTERNAL QC DONE? YES SEND TO IC? NO A NEGATIVE TEST RESULT DOES NOT EXCLUDE [...] UP TO THREE DAYS. RESULT CRITICAL? NO Normal [facility] Comment on above: Performed By: #### 2 07010 ####[address] [address] LIPASEon 12-17-2024 Lipase [Catalytic activity/Vol] 12.0 U/L Low 15.0 - 78.0 [facility] Comment on above: Result Comment: *PLE ASE NOTE THAT RANGES FOR LIPASE HAVE CHANGED OF 04/01/23 DUE TO AN ASSAY UPDATE BY THE SATELLITE DISH REPAIRER.THE NEW ASSAY RANGE IS 6-250 U/L, WITH A REFERENCE RANGE OF 16-77 U/L. Performed By: #### 2 40706 ####[address] [address] URINALYSISon 12-17-2024 Amorphous 1+ Normal [facility] Comment on above: Performed By: #### 2 56064 #### [facility],[address] [place] [address] 22068 Bacteria 1+ Normal [facility] Comment on above: Performed By: #### 2 38197 #### [facility],[address] [place] [address] 46509 Bilirubin Ql (U) Negative Normal NORMAL: NEGATIVE [facility] Comment on above: Performed By: #### 2 48376 #### [facility],[address] [place] [address] 36130 Casts SEE BELOW Normal [facility] Comment on above: Performed By: #### 2 41779 #### [facility],[address] [place] [address] 32090 Clarity (U) sl.cloudy Normal NORMAL: CLEAR [facility] Comment on above: Performed By: #### 2 96369 #### [facility],[address] [place] [address] 19016 Color (U) mal Normal NORMAL: YELLOW [facility] Comment on above: Performed By: #### 2 14261 #### [facility],[address] [place] [address] 92317 Crystals LM Nom (Urine sed) NONE Normal [facility] Comment on above: Performed By: #### 2 69025 #### [facility],[address] [place] [address] 04527 Epi Cells MANY Normal [facility] Comment on above: Performed By: #### 2 71590 #### [facility],[address] [place] [address] 05714 Glucose Ql (U) NORM Normal NORMAL: NORMAL [facility] Comment on above: Performed By: #### 2 84673 #### [facility],[address] [place] [address] 20899 Hemoglobin Ql (U) 10 Abnormal NORMAL: NEGATIVE [facility] Comment on above: Performed By: #### 2 39013 #### [facility],[address] [place] [address] 73094 Hyaline 1-5 Normal NORMAL: NONE [facility] Comment on above: Performed By: #### 2 04452 #### [facility],[address] [place] [address] 96506 Ketone 50 Abnormal NORMAL: NEGATIVE [facility] Comment on above: Performed By: #### 2 [id number] #### [facility],[address] [place] [address] 55159 Leukocytes 25 Abnormal NORMAL: NEGATIVE [facility] Comment on above: Performed By: #### 2 56923 #### [facility],[address] [place] [address] 04977 Mucous NONE Normal [facility] Comment on above: Performed By: #### 2 85503 #### [facility],[address] [place] [address] 43702 Nitrite Ql (U) Negative Normal NORMAL: NEGATIVE [facility] Comment on above: Performed By: #### 2 55028 #### [facility],[address] [place] [address] 40142 pH (U) 6 [pH] Normal NORMAL: 5.0-8.0 [facility] Comment on above: Performed By: #### 2 72708 #### [facility],[address] [place] [address] 95916 Protein Ql (U) 100 Abnormal NORMAL: NEGATIVE [facility] Comment on above: Performed By: #### 2 23691 #### [facility],[address] [place] [address] 94382 Rbc 0-5 Normal 0-3/hpf [facility] Comment on above: Performed By: #### 2 32543 #### [facility],[address] [place] [address] 20260 Sp [place] 1.015 Normal NORMAL: 1.010-1.030 [facility] Comment on above: Performed By: #### 2 12030 #### [facility],[address] [place] [address] 66126 Specimen Type R Normal [facility] Comment on above: Performed By: #### 2 48859 #### [facility],[address] [place], [place] [id number] Urinalysis dipstick W Reflex Microscopic panel (U) SEE BELOW Normal [facility] Comment on above: Result Comment: MICR OSCOPIC Performed By: #### 2 45156 #### [facility],[address] [place] [address] Urobilinog 4 Abnormal NORMAL: NORMAL [facility] Comment on above: Performed By: #### 2 78823 #### [facility],[address] [place], [place] [id number] Wbc 1-5 Normal 0-5/hpf [facility] Comment on above: Performed By: #### 2 78225 #### [facility],[address] [place] [address] Yeast NONE Normal [facility] Comment on above: Performed By: #### 2 62479 #### [facility],[address] [place], [place] [id number] URINE CULTURE [CCL]on 2024 Bacteria identified Cx Nom (U) URCUL See Results Below See Below CULTURE, URINE NORMAL UROGENITAL PARMJIT 10,000 -<50,000 CFU/ml Normal urogenital parmjit SOURCE: Urine (Nonspecific) [facility] [address] [place] [address] Bhupendra Hu III, M.D. [id number] Normal [facility] Comment on above: Performed By: #### 2 27927 ####[facility],[address] [place] [address] 85517 Bacteria Ur Culton Bacteria identified Cx Nom (U) ORGANISM ID: 1 10,000 -<50,000 CFU/ml Normal urogenital parmjit Normal [facility] Comment on above: Performed By: #### 6 30-4 ####[facility] [id number] [facility] [place] [id number] [place] CNOVon 10-24-2024 CNOV Office Visit (FAMPWS ) NOEMI ALONSO ([id number]) 1965 F Date Time Provider Department 10/24/24 11:40 AM [facility] During your visit today, we recorded the following information about you: Temperature Pulse Respiration Blood pressure 97.7 degrees 77/minute 18/minute 122/80 Weight 75.8 kg Cheryl aShu PA-C 10/24/2024 12:31 PM Signed Chief Complaint Patient presents with: Edema: Bilateral lower legs x 1 week HPI Noemi Alonso is a 59 year old female who presents here today for Above Complaints.. Bilateral Foot Pain: - Onset: 1 week ago. - Described as hurting when standing; pain worsens with prolonged standing. - Can only stand for about 10 minutes before pain becomes severe. - Pain is diffuse across both feet. - Noemi denies any changes in footwear or activities. Chronic Back Pain: - Chronic back pain with acute worsening over the past week. - Experiences muscle spasms described as giving out in the lower back, causing near falls. - Spasms occur during activities like standing or doing dishes. - No recent physical therapy for back pain. - Noemi denies known trauma. Urinary Incontinence: - Worsening urinary incontinence over the past couple of weeks. - Experiences a burning sensation during urination that radiates to the arms and fingers. - Urgency and frequency increased, especially when hearing running water. - Noemi uses a pad for leakage, particularly when [...] 08/17/2021 GERD without esophagitis 12/12/2020 History of SD (myocardial infarction) 07/11/2019 2016 Lung nodules 2020 [...] LIGATE FALLOPIAN TUBE age 23 - at [facility] PAST SURGICAL HISTORY OF 04/2014 heart [...] BP 122/80 (BP Site: Left Arm, BP Position (more content not included)... Normal [facility] Urinalysis complete panel (U )on 10-24-2024 Bacteria uL 1278.8 uL High - 941 uL [facility] Bilirubin Ql (U) Negative Negative [facility] Clarity (Unsp spec) Clear Clear [facility] Color (U) Yellow Yellow [facility] Epithelial cells LM.HPF (Urine sed) [#/Area] Moderate /HPF [facility] Glucose Test strip (U) [Mass/Vol] Negative Negative [facility] Hemoglobin Ql (U) Negative Negative [facility] Hyaline casts (Urine sed) [#/Area] 0 /[LPF] 0 /LPF [facility] Interpretation and review of laboratory results Abnormal [facility] Ketones Ql (U) Negative Negative [facility] Leukocyte esterase Test strip Ql (U) Negative Negative [facility] Nitrite Ql (U) Negative Negative [facility] pH (U) 5.5 [pH] 5.0 - 8.0 [facility] Protein (U) [Mass/Vol] Negative Negative Cl [facility] RBC LM.HPF (Urine sed) [#/Area] 0-2 /HPF 0-2 /HPF [facility] Specific gravity (U) [Rel density] 1.018 1.005 - 1.030 [facility] Urobilinogen Ql (U) 0.2 EU/dL 0.2-1.0 EU/dL [facility] WBC LM.HPF (Urine sed) [#/Area] 0-5 /HPF 0-5 /HPF [facility] This test was developed and its performance characteristics determined by [facility]'s [facility] [place] ([facility]). It has not been cleared or approved by the FDA. [facility] is regulated under CLIA as qualified to perform high-complexity testing. This test is used for clinical purposes. It should not be regarded as investigational or for research. [facility] BACTERIA UL 1278.8 uL High Negative [facility] Comment on above: Order Comment: Speci men Type: URINE SPECIMENOrdering Facility: [facility] Address: [address] [place] [address] Performed By: #### 2 4356-8 ####[facility] [id number] [place] [address] [place] Bilirubin Ql (U) Negative Normal Negative [facility] Comment on above: Order Comment: Speci men Type: URINE SPECIMENOrdering Facility: [facility] Address: [address] [place] [address] Performed By: #### 2 4356-8 ####[facility] [id number] [place] [address] [place] Clarity (Unsp spec) Clear Normal [facility] Comment on above: Order Comment: Speci men Type: URINE SPECIMENOrdering Facility: [facility] Address: [address] [place] [address] Performed By: #### 2 4356-8 ####[facility] [id number] [place] [address] [place] Color (U) Yellow Normal Yellow [facility] Comment on above: Order Comment: Speci men Type: URINE SPECIMENOrdering Facility: [facility] Address: [address] [place] [address] Performed By: #### 2 4356-8 ####[facility] [id number] [address] [place] [facility] Epithelial cells LM.HPF (Urine sed) [#/Area] Moderate Normal [facility] Comment on above: Order Comment: Speci men Type: URINE SPECIMENOrdering Facility: [facility] Address: [address] [place] [address] Performed By: #### 2 4356-8 ####[facility] [id number] [address] [place] Glucose Test strip (U) [Mass/Vol] Negative Normal Negative [facility] Comment on above: Order Comment: Speci men Type: URINE SPECIMENOrdering Facility: [facility] Address: [address] [place] [address] Performed By: #### 2 4356-8 ####[facility] [id number] [place] [address] [place] Hemoglobin Ql (U) Negative Normal Negative [facility] Comment on above: Order Comment: Speci men Type: URINE SPECIMENOrdering Facility: [facility] Address: [address] [place] [address] Performed By: #### 2 4356-8 ####[facility] [id number] [place] [address] [place] Hyaline casts (Urine sed) [#/Area] 0 /[LPF] Normal 0 /LPF [facility] Comment on above: Order Comment: Speci men Type: URINE SPECIMENOrdering Facility: [facility] Address: [address] [place] [address] Performed By: #### 2 4356-8 ####[facility] [id number] [place] [id number] [place] Ketones Ql (U) Negative Normal Negative [facility] Comment on above: Order Comment: Speci men Type: URINE SPECIMENOrdering Facility: [facility] Address: [address] [place] [address] Performed By: #### 2 4356-8 ####[facility] [id number] [place] [address] [place] Leukocyte esterase Test strip Ql (U) Negative Normal Negative [facility] Comment on above: Order Comment: Speci men Type: URINE SPECIMENOrdering Facility: [facility] Address: [address] [place] [address] Performed By: #### 2 4356-8 ####[facility] [id number] [place] [address] [place] Nitrite Ql (U) Negative Normal Negative [facility] Comment on above: Order Comment: Speci men Type: URINE SPECIMENOrdering Facility: [facility] Address: [address] [place] [address] Performed By: #### 2 4356-8 ####[facility] [id number] [place] [address] [place] pH (U) 5.5 [pH] Normal 5.0-8.0 [facility] Comment on above: Order Comment: Speci men Type: URINE SPECIMENOrdering Facility: [facility] Address: [address] [place] [address] Performed By: #### 2 4356-8 ####[facility] [id number] [place] [id number] [place] Protein (U) [Mass/Vol] Negative Normal Negative [facility] Comment on above: Order Comment: Speci men Type: URINE SPECIMENOrdering Facility: [facility] Address: [address] [place] [address] Performed By: #### 2 4356-8 ####[facility] [id number] [address] [place] RBC LM.HPF (Urine sed) [#/Area] 0-2 /HPF Normal 0-2 /HPF [facility] Comment on above: Order Comment: Speci men Type: URINE SPECIMENOrdering Facility: [facility] Address: [address] [place] [address] Performed By: #### 2 4356-8 ####[facility] [id number] [place] [address] [place] Specific gravity (U) [Rel density] 1.018 Normal 1.005-1.030 [facility] Comment on above: Order Comment: Speci men Type: URINE SPECIMENOrdering Facility: [facility] Address: [address] [place] [address] Performed By: #### 2 4356-8 ####[facility] [id number] [address] [place] Urobilinogen Ql (U) 0.2 EU/dL Normal 0.2-1.0 EU/dL [facility] Comment on above: Order Comment: Speci men Type: URINE SPECIMENOrdering Facility: [facility] Address: [address] [place] [address] Performed By: #### 2 4356-8 ####[facility] [id number] [place] [address] [place] WBC LM.HPF (Urine sed) [#/Area] 0-5 /HPF Normal 0-5 /HPF [facility] Comment on above: Order Comment: Speci men Type: URINE SPECIMENOrdering Facility: [facility] Address: [address] [place] [address] Performed By: #### 2 4356-8 ####[facility] [id number] [place] [address] [place] XR LUMBAR 3V AP/LAT/L5-S1on 10-24-2024 XR LUMBAR 3V AP/LAT/L5-S1 * * *Final Report* * * DATE [...] spine are presented. FINDINGS: There are five aap-gzn-fyyfcjx lumbar vertebrae. No fracture visualized. There is similar grade 1 L4 on L5 anterolisthesis. The disc spaces are well preserved. There is minimal osteophyte formation. Others: Surgical clips in the right upper quadrant abdomen and pelvis. IMPRESSION: Lumbar spine mild degenerative changes. Internet Programmer: PSCB Transcribe Date/Time: Oct 29 2024 3:52P Dictated by : JUSTEN ZAVALA MD This examination was interpreted and the report reviewed and electronically signed by: JUSTEN ZAVALA MD on Oct 29 2024 3:54PM EST [id number] Normal [facility] CNCOon 10-12-2024 CNCO Letter Text Normal [facility] CNCOon 10-09-2024 CNCO Letter Text Normal [facility] CNOVon 09-17-2024 CNOV Office Visit (OBGYWM ) GAVINNOEMI Aguillon ([id number]) 1965 F Date Time Provider Department 09/17/24 11:10 AM JERRY ROMO OBGYWM During your visit today, we recorded the following information about you: Blood pressure Weight Height 151/90 76.2 kg 1.61 m Jerry Romo MD 09/17/2024 12:11 PM Signed 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 Note Bilateral simple ovarian cysts 2/4 cm and stable since 2021. Also 5mm endometrium w/o hx ov bleeding /staining etc. Noemi is a 59 year old who presents for an annual gynecologic exam without complaints. 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 Operations Manager History LMP: Postmenopausal Age at Menarche: Age at First : Age at Menopause: Logistics Operations Manager History Comments: Sexual Activity: Yes; Male; tubes tied at the age of 23 Contraception: Tubal Ligation PAST MEDICAL HISTORY Diagnosis Date Anxiety disorder 07/24/2014 Elevated hemoglobin A1c 07/18/2021 Elevated LFTs 2020 Environmental allergies 10/06/2018 Essential hypertension 07/24/2014 Fatty liver 08/17/2021 GERD without esophagitis 12/12/2020 History of SD (myocardial infarction) 07/11/2019 [address] [facility] mm x 4 [...] LIGATE FALLOPIAN TUBE age 23 - at [facility] PAST SURGICAL HISTORY OF 04/2014 heart [...] discussed with the Patient or Patient's Authorized Bath Tester. As applicable, any other physician, advance practice provider, medical student, or other health professional student that will be observing or involved in the sensitive examination for educational or training purposes was discussed with the Patient or Authorized Bath Tester. The Patient or Authorized Bath Tester has agreed to proceed with the sensitive [...] external genitalia normal, normal Bartholin's glands, urethra, [place]'s glands, no vulvar lesions, no cervical lesions, good vaginal support, physiologic discharge present, normal appearing perineal body and perianal region BIMANUAL: uterus normal size, shape and consistency, anteverted, no adnexal masses, non-tender, no cervical motion tenderness, and adnexal mass bilateral RECTOVAGINAL: deferred. ASSESSMENT/PLAN: 1) Health maintenance: Pap done with HPV. Mammogram ordered annual pelvic ultras (more content not included)... Normal [facility] HIGH RISK HUMAN PAPILLOMA MAISHA (HPV), PCR FOR DETECTION AND GENOTYPINGon 09-17-2024 HPV 16 Ag Ql (Unsp spec) Not detected Normal Not detec fadia [facility] Comment on above: Order Comment: Speci men Type: FLUID SPECIMENOrdering Facility: [facility] Address: [address] [place] [address] Performed By: #### H PVHRT ####[facility] [id number] [place] [address] [place] HPV 18 Ag Ql (Unsp spec) Not detected Normal Not detec [facility] Comment on above: Order Comment: Speci men Type: FLUID SPECIMENOrdering Facility: [facility] Address: [address] [place] [address] Performed By: #### H PVHRT ####[facility] [id number] [place] [address] [place] HPV 31+33+35+39+45+51+52+56+ 58+59+66+68 DNA RONNIE+probe Ql (Cvx) Not detected Normal Not detected [facility] Comment on above: Order Comment: Speci men Type: FLUID SPECIMENOrdering Facility: [facility] Address: [address] [place] [address] Result Comment: High Risk HPV Other Type includes HPV types 31, 33, 35, 39, 45, 51, 52, 56, 58, 59, 66 and 68. Performed By: #### H PVHRT ####[facility] [id number] [place] [address] [place] PAP TESTon 09-17-2024 ADEQUACY Normal [facility] Comment on above: Order Comment: Speci men Type: FLUID SPECIMENOrdering Facility: [facility] Address: [address] [place] [address] Result Comment: Sati sfactory for interpretation. Transformation zone present Performed By: #### L [id number] ####[facility] [id number] [place] [address] [place] CASE REPORT Normal [facility] Comment on above: Order Comment: Speci men Type: FLUID SPECIMENOrdering Facility: [facility] Address: [address] [place] [address] Result Comment: Gyne cologic Cytology Report Case: [id number] Authorizing Provider: Jerry Romo MD Collected: 09/17/2024 12:32 PM Ordering Location: OB/Gynecology Received: 09/17/2024 02:31 PM First Screen: [place], [place], ASCP Rescreen: [place], [place], ASCP Specimen: Pap Test, ThinPrep, Cervix Performed By: #### L [id number] ####[facility] [id number] [address] [address] [place] CLINICAL HISTORY, CYTOLOGY, INCOME TAX INVESTIGATOR Routine Exam Normal [facility] Comment on above: Order Comment: Speci men Type: FLUID SPECIMENOrdering Facility: [facility] Address: [address] [place] [address] Result Comment: Post Menopausal Performed By: #### L [id number] ####[facility] [id number] [address] [place] [address] [place] CYTOLOGY PAP OTHER INTERPRETATION Predominance of coccobacilli consistent with shift in vaginal parmjit. Normal [facility] Comment on above: Order Comment: Speci men Type: FLUID SPECIMENOrdering Facility: [facility] Address: [address] [place] [address] Performed By: #### L [id number] ####[facility] [id number] [address] [place] [address] [place] FINAL PERFORMING LAB Normal [facility] Comment on above: Order Comment: Speci men Type: FLUID SPECIMENOrdering Facility: [facility] Address: [address] [place] [address] Result Comment: Tech nical component, baster hand screening performed at: [facility], [address] [place] [address] [place] [address] CLIA: [id number] Diagnostic interpretation performed at: [facility], [address] [facility], [place] [address] CLIA# [id number] Jail Keeper: Bhupendra Hu MD Performed By: #### L [id number] ####[facility] [id number] [place] [id number] [place] INTERPRETATION, CYTOLOGY, INCOME TAX INVESTIGATOR Normal [facility] Comment on above: Order Comment: Speci men Type: FLUID SPECIMENOrdering Facility: [facility] Address: [address] [place] [address] Result Comment: Nega tive for intraepithelial lesion or malignancy. at 1446 EDT Performed By: #### L [id number] ####[facility] [id number] [place] [address] [place] PAP DISCLAIMER COMMENT The Pap Smear is a screening test for cervical cancer. False negative results occur with all screening tests, emphasizing the need for rescreening at recommended intervals, and clinical correlation. Normal [facility] Comment on above: Order Comment: Speci men Type: FLUID SPECIMENOrdering Facility: [facility] Address: [address] [place] [address] Performed By: #### L [id number] ####[facility] [id number] [place] [address] [place] PAP SUPERVISOR METAL FABRICATING COMMENT This specimen has been analyzed by the FDA-approved THE Football App System, which uses digital imaging and an enhanced artificial intelligence image analysis algorithm to identify davis of interest on the microscopic slide, to assist the film projector operator and pathologist in evaluating cells on ThinPrep Pap tests. Following analysis, davis of interest on the microscopic slide selected by the algorithm are reviewed by a film projector operator. If a sample requires hierarchical review, the pathologist will review the same davis of interest selected by the algorithm prior to final interpretation. Normal [facility] Comment on above: Order Comment: Speci men Type: FLUID SPECIMENOrdering Facility: [facility] Address: [address] [place] [address] Performed By: #### L [id number] ####[facility] [id number] KOFIYVONNE NELSON [place] [id number] [place] ED MED ADMINISTRATION DETAIL on 08-28-2024 ED MED ADMINISTRATION DETAIL Silk Snapper Medication Administration Record [place] [id number] [facility] [place] [address] [id number] 08/07/2024 Patient: NOEMI ALONSO Sex: Female : 1965 Age: 59y MEASUREMENTS: Wt: 72.6 kg, Ht/Rafy: 61.0 in, BMI: 30.23 ALLERGIES: No known drug allergies Medication Ordered Medication Administration Date/Time Zofran IVP 4 mg 11:36 08/07 Zofran IVP 4 mg given via Site# [...] R.N. IV NS 0.9 % 500 mL 11:08/07 IV NS 0.9 % 500 mL started [...] medication. - 11:55 Cecilia Chavira R.N. Scanned 13:08/07 Medication Discontinued: bag #1 completed. Total amount infused: 1000 mL. IV patency established. IV site checked: no pain, redness, or swelling. IV flushed thoroughly post-medication administration. - 22:44 Ana Cristina Buchanan R.N. 1 of 2 Silk Snapper Medication Ordered Medication Administration Date/Time IV NS 0.9 % 500 mL 16:19 08/07 IV NS 0.9 % 500 mL started in bag#1 500 mL at 500 Started at 500 mL/hr (NOW mL/hr via Site# 1. Allergies verified and confirmed 5 rights. IV 16:19 08/07/2024 x1) patency established. IV site checked: no pain, redness, or swelling. Ana Cristina Buchanan R.N. IV flushed thoroughly pre-medication administration. Medication Stopped Wastage: 500 mL wasted. - 16:20 Ana Cristina Buchanan R.N. 17:28 08/07/2024 Ana Cristina Buchanan R.N. 17:28 08/07 Medication Discontinued: bag #2. Total amount Scanned infused: 500 mL. IV patency established. IV site checked: no pain, redness, or swelling. IV flushed thoroughly post-medication administration. - 22:44 Ana Cristina Buchanan R.N. Zofran IVP 4 mg 16:20 08/07 Zofran IVP 4 mg given via Site# 1. Allergies verified Given (NOW x1) and confirmed 5 rights. IV patency established. IV site checked: no 16:20 08/07/2024 pain, redness, or swelling. IV flushed thoroughly pre-medication Ana Cristina Buchanan R.N. administration. Information reviewed. Verbalizes understanding. - Scanned 16:20 Ana Cristina Buchanan R.N. KetorOLAC 16:20 05 KetorOLAC (Toradol) IVP 30 mg given via Site# 1. Given (Toradol) IVP 30 mg Allergies verified and confirmed 5 rights. IV patency established. IV 16:20 08/07/2024 (NOW x1) site checked: no pain, redness, or swelling. IV flushed thoroughly Ana Cristina Buchanan R.N. pre-medication administration. Information reviewed. Verbalizes Scanned understanding. - 16:20 Ana Cristina Buchanan R.N. 2 of 2 Normal [facility] ED NURSES CLINICAL NOTEon ED NURSES CLINICAL NOTE Nurse Narrative Nurse Clinical [address] [address] [phone] 08/07/2024 10:22:00 Patient: NOEMI ALONSO Sex: Female : 1965 Age: 59y Disposition: Discharge to Home Disposition Decision Time: 17:21 08/07/2024 Departure Time: 17:08/07/2024 TRIAGE Arrived by private vehicle. Historian: (patient). Primary physician (Bonny). Triage time: 10:29 08/07/2024. Acuity: LEVEL 3. Chief Complaint: NAUSEA, VOMITING and DIARRHEA. Onset. (Tuesday morning). The patient has had vomiting, diarrhea and abdominal pain. 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 (Immodium, zofran). SEPSIS SCREEN: NEGATIVE. SIRS criteria negative. No possible sources of infection. -- 10:34 08/07/24 EDT Hedy Mansfield R.N. 10:34 08/07/24. BP: 156/98 MAP: 117. HR: 83. RR: 16. O2 saturation: 96% Temperature: 97.7 F. Pain level now 7/10. -- 10:34 08/07/24 AGNES Mansfield R.N. Measurements: 10:32 08/07/24 Wt: 72.6 kg, Ht/Rafy: 61.0 in, BMI: 30.23 -- 10:32 08/07/24 CEET Hedy Mansfield R.N. Medications: trazodone 50 mg tablet: 1 tablet once a day . -- 10:30 08/07/24 AGNES Mansfield R.N. 1 of 4 Nurse Narrative propranolol ER 160 mg capsule,24 hr,extended release: 1 capsule once a day . -- 10:30 08/07/24 CEET Hedy Mansfield R.N. omeprazole 40 mg capsule,delayed release: 1 capsule once a day . -- 10:30 08/07/24 CEET Hedy Mansfield R.N. loratadine 10 mg tablet: 1 tablet once a day . -- 10:30 08/07/24 CEET Hedy Mansfield R.N. gabapentin 300 mg capsule: 1 capsule three times a day . -- 10:30 08/07/24 CEET Hedy Mansfield R.N. atorvastatin 20 mg tablet: 1 tablet once a day . -- 10:30 08/07/24 CEET Hedy Mansfield R.N. 10:08/07/24. Preferred Pharmacy: [facility]. -- 10:08/07/24 CEET Hedy Mansfield R.N. Allergies: no known drug allergies -- 10:08/07/24 CEET Hedy Mansfield R.N. Problems: fatty liver -- 10:08/07/24 CEET Hedy Mansfield R.N. Myocardial Infarction -- 10:08/07/24 CEET Hedy Mansfield R.N. Hypertension -- 10:08/07/24 CEET Hedy Mansfield R.N. Hyperlipidemia -- 10:08/07/24 CEET Hedy Mansfield R.N. Gastroesophageal Reflux Disease -- 10:08/07/24 CEET Hedy Mansfield R.N. Headache -- 10:08/07/24 CEET Hedy Mansfield R.N. ADDITIONAL SURGERIES: Cholecystectomy -- 10:08/07/24 AGNES Mansfield R.N. Tubal Ligation -- 10:08/07/24 CEET Hedy Mansfield R.N. History 10:08/07/24. SOCIAL HX: Never [...] assessment completed. No risk factors identified. -- 10:08/07/24 AGNES Mansfield R.N. 10:08/07/24. PAST MEDICAL HX: LNMP: No menstrual periods. -- 10:08/07/24 AGNES Mansfield R.N. Interventions 10:08/07/24. Advanced care plan discussed with patient. Patient does not have advanced directive. -- 10:34 08/07/24 EDT Hedy Mansfield R.N. PHYSICAL ASSESSMENT 10:45 08/07/24. Ambulatory to room. 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 She states she has [...] is warm and dry. -- 11:10 08/07/24 EDT Ana Cristina Buchanan R.N. NURSING PROGRESS NOTES 11:35 08/07/24. Patient transported to radiology by stretcher with appraisal technician. -- 13:56 08/07/24 CEET Ana Cristina Buchanan R.N. 11:35 08/07/24. Site #1 started via IV in the left antecubital space with a 20g angiocath with aseptic technique and good blood return; 1 attempt. Blood drawn: rainbow set tube(s). Labeled in the presence of the patient and sent to the lab. Saline lock flushed with 5 mL saline. -- 11:36 08/07/24 EDT Hedy Mansfield R.N. 11:36 08/07/24. Zofran IVP 4 mg given via Site# 1. Allergies verified and confirmed 5 rights. IV patency established. IV site checked: no pain, redness, or swelling. IV flushed thoroughly pre-medication administration. IVP given by nurse. Information reviewed with patient including reason for taking this medication. -- 11:38 08/07/24 EDT Hedy Mansfield R.N. 11:50 08/07/24. Site #2 started via IV in (more content not included)... Normal [facility] ED ORDER SHEET (CPOE ONLY)on 08-28-2024 ED ORDER SHEET (CPOE ONLY) Order Sheet Order Sheet [address] [place] [address] [id number] 08/07/2024 Patient: NOEMI ALONSO Sex: Female : 1965 Age: 59y MEASUREMENTS: Wt: 72.6 kg, Ht/Rafy: 61.0 in, BMI: 30.23 ALLERGIES: No known drug allergies MEDICATION/IV/DRIP/FL UID ORDERS Order Description Priority Entered Acknowledged Completed Zofran IVP4 mg (NOW x1) 11:10 08/07/2024 11:19 11:38 Jet Mello D.O. 08/07/2024 08/07/2024 Hedy Chavira, Rhett. R.N. Reason for ordering with alerts: Benefits outweigh risks --11:10 08/07/2024 Jet Mello D.O. IV NS 0.9 %500 mL at 500 mL/hr 11:10 08/07/2024 11:19 11:55 (NOW x1) Jet Mello D.O. 08/07/2024 08/07/2024 Hedy Chavira, RMarco AntonioN. R.N. IV NS 0.9 %500 mL at [...] 08/07/2024 Hedy Ibrahim Natalie Yoder, D.O. R.N. RArian CMP Stat Stat 11:10 08/07/2024 11:19 08/07/2024 11:55 08/07/2024 Hedy Ibrahim Natalie Yoder, D.O. R.N. R.N. Lipase Stat Stat 11:10 08/07/2024 11:19 08/07/2024 11:55 08/07/2024 Hedy Ibrahim Natalie Yoder, D.O. R.N. RMarco AntonioNMarco Antonio Urinalysis Stat Stat 11:10 08/07/2024 11:19 08/07/2024 11:55 08/07/2024 Hedy Ibrahim Natalie Yoder, D.O. R.N. RArian Urinalysis Stat Stat 15:50 08/07/2024 16:25 08/07/2024 [...] D.O. (08/28/2024 23:59 EDT)] 3 of 3 Normal [facility] ED PHYSICIAN CLINICAL REPORT on 08-28-2024 ED PHYSICIAN CLINICAL REPORT Narrative Physician Clinical [address] [address] [phone] 08/07/2024 10:22:00 Patient: NOEMI ALONSO Sex: Female : 1965 Age: 59y [...] Final Above high normal EDT 08/07/2024 12:27 Warren # 0.40 x10/UL 0.20 - 1.00 Final [...] 136 - 145 Final 14:48 EDT normal 05/0 (more content not included)... Normal [facility] ED [facility] BILLon 08-28-2024 ED [place] [address] [place] [address] [phone] 08/07/2024 Patient: NOEMI ALONSO Sex: Female : 1965 Age: 59y Facility Professional Category Item Description Code Code Quantity Fee Total Drugs Normal Saline 997799 2 $0.00 $0.00 1000cc (707671) Nurse/E/M EMERGENCY 184896 1 $0.00 $0.00 DEPT VISIT HIGH SEVERITYFUNCJ (33526-44) Nurse/IV/IM/Infusions Hydration 456283 3 $0.00 $0.00 additional hour (09089) Nurse/IV/IM/Infusions IVP additional 073557 1 $0.00 $0.00 push (69825) Nurse/IV/IM/Infusions IVP initial (52384) 508202 1 $0.00 $0.00 Nurse/IV/IM/Infusions IVP same med 887755 1 $0.00 $0.00 (31 min apart) (19043) Grand $0.00 Total [facility] Chief Complaint VOMITING and DIARRHEA. Principal Diagnosis Vomiting with nausea. Diarrhea Chronic right upper quadrant and right lower quadrant abdominal pain. Probable subacute noninfectious gastroenteritis. ICD-10 Codes R11.2: Nausea with vomiting, unspecified R19.7: Diarrhea, unspecified R10.11: Right upper quadrant pain R10.31: Right lower quadrant pain 2 of 2 Normal [facility] ED VISIT SUMMARYon ED VISIT SUMMARY Visit Overview Visit Overview [address] [place] [address] [phone] 08/07/2024 Patient: NOEMI ALONSO Sex: Female : 1965 Age: 59y [...] 1 capsule once a day . 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 She states she has [...] GASTROENTERITIS VOMITING WITH NAUSEA 3 of 3 Normal [facility] ED VITALS FLOW SHEETon 08-28 ED VITALS FLOW SHEET Vitals Vital Sign Flow Sheet [facility] [address] [place] [address] [phone] 08/07/2024 Patient: NOEMI ALONSO Sex: Female : 1965 Age: 59y Measurements Wt: 72.6 kg, Ht/Rafy: 61.0 in, BMI: 30.23 Measured Time BP MAP HR RR O2Sat ETCO2 Temp Pain GCS RTS 17:25 08/07/2024 Vital signs deferred due to patient refused. 10:34 08/07/2024 156/98 117 83 16 96% 97.7 F 7 1 of 1 Normal [facility] US FEMALE PELVIS TRANSVAGon 08-28-2024 US FEMALE PELVIS TRANSVAG * * *Final Report* * * DATE [...] the endometrium. Recommend consideration for endometrial sampling Internet Programmer: GONSALO Transcribe Date/Time: Aug 28 2024 2:32P Dictated by : BAHMAN IYER MD This examination was interpreted and the report reviewed and electronically signed by: BAHMAN IYER MD on Aug 28 2024 2:34PM EST [id number] Normal [facility] US Pelvis transvaginalon IMPRESSION: Bilateral simple ovarian cysts. Follow-up ultrasound in 12 months. Mild thickening of the endometrium. Recommend consideration for endometrial sampling Internet Programmer: GONSALO Transcribe Date/Time: Aug 28 2024 2:32P Dictated by : BAHMAN IYER MD This examination was interpreted and the report reviewed and electronically signed by: BAHMAN IYER MD on Aug 28 2024 2:34PM EST DIVISION OF RADIOLOGY * * *Final Report* * * DATE [...] Fluid: No abnormal free fluid is present. DIVISION OF RADIOLOGY Provider, Stella Neeraj Rothman - 08/28/2024 * * *Final Report* * * DATE [...] Fluid: No abnormal free fluid is present. IMPRESSION IMPRESSION: Bilateral simple ovarian cysts. Follow-up ultrasound in 12 months. Mild thickening of the endometrium. Recommend consideration for endometrial sampling Internet Programmer: GONSALO Transcribe Date/Time: Aug 28 2024 2:32P Dictated by : BAHMAN IYER MD This examination was interpreted and the report reviewed and electronically signed by: BAHMAN IYER MD on Aug 28 2024 2:34PM EST [facility] Radiology Study observation (narrative) [facility] US Pelvis transvaginalOrdere d By: Taniya Provider on 08-28-2024 [facility] CNOVon 08-22-2024 CNOV Office Visit (FAMPWS ) NOEMI ALONSO ([id number]) 1965 F Date Time Provider Department 08/22/24 9:00 AM [facility] During your visit today, we recorded the following information about you: Temperature Pulse Respiration Blood pressure 97.4 degrees 65/minute 16/minute 118/86 Weight 75.8 kg Cheryl Sahu PA-C 08/22/2024 9:28 AM Signed Chief Complaint Patient presents with: Hospital F/U HPI Noemi Alonso is a 59 year old female [...] 08/17/2021 GERD without esophagitis 12/12/2020 History of SD (myocardial infarction) 07/11/[address] [facility] mm x 4 [...] normal EGD 4-5 years ago L'SCOPE CHOLECYSTECTOMY 2019 LEXISCAN STRESS TEST 03/21/2020 negative LIGATE FALLOPIAN TUBE age 23 - at [facility] PAST SURGICAL HISTORY OF 04/2014 heart [...] Cigarettes Smokeless tobacco: Former Quit date: 03/26/2022 Tobac (more content not included)... Normal [facility] Absolute lymphocyte countOrd ered By: Len Lazo on 08-10-2024 Lymphocytes Auto (Unsp spec) [#/Vol] 5.52 10*3/uL High 0.83-4.51 [facility] Absolute neutrophil countOrd ered By: Len Lazo on 08-10-2024 Neutrophils (Bld) [#/Vol] 7.6 10*3/uL 2.0-7.7 [facility] Anion gap in Serum or Plasma Ordered By: Len Lazo on 08-10-2024 Anion gap [Moles/Vol] 10 mmol/L 5- [facility] Automated lymphocyte count a s percentage of total leukocytesOrdered By: Len Lazo on 08-10-2024 Lymphocytes/100 WBC Auto (Unsp spec) 38.7 % - [facility] BUN/creatinine ratioOrdered By: Len Lazo on 08-10-2024 Urea nitrogen/Creatinine [Mass ratio] 14.2 mg/mg 10- [facility] Basophil percentageOrdered B y: eLn Lazo on 08-10-2024 Basophils/100 WBC (Bld) 0.7 % 0-1 [facility] Bilirubin, totalOrdered By: Len Lazo on 08-10-2024 Bilirubin [Mass/Vol] 1.49 mg/dL High 0.00-1.30 [facility] CBC W/Diff, Automatedon Absolute Lymph 5.52 X10 3/uL High 0.83-4.51 [facility] Comment on above: Performed By: #### L 501.2300, L100.0100, L500.4050 #### [facility] [address] [place], [address] Absolute Neut 7.6 X10 3/uL Normal 2.0-7.7 [facility] Comment on above: Performed By: #### L 501.2300, L100.0100, L500.4050 #### [facility] [address] [place], [address] Basophils/100 WBC (Bld) 0.7 % Normal 0-1 [facility] Comment on above: Performed By: #### L 501.2300, L100.0100, L500.4050 #### [facility] [address] [place], [address] Eosinophils/100 WBC (Bld) 0.7 % Normal 0-5 [facility] Comment on above: Performed By: #### L 501.2300, L100.0100, L500.4050 #### [facility] [address] [place], [address] Erythrocyte distribution width (RBC) [Ratio] 13.1 % Normal 11.6-14.6 [facility] Comment on above: Performed By: #### L 501.2300, L100.0100, L500.4050 #### [facility] [address] [place], [address] Hematocrit (Bld) [Volume fraction] 44.9 % Normal 37-47 [facility] Comment on above: Performed By: #### L 501.2300, L100.0100, L500.4050 #### [facility] [address] [place], [address] Hemoglobin (Bld) [Mass/Vol] 15.0 g/dL Normal 12.0-15.0 [facility] Comment on above: Performed By: #### L 501.2300, L100.0100, L500.4050 #### [facility] [address] [place], [address] IG% 0.300 Normal 0.0-0.9 [facility] Comment on above: Result Comment: IG% - Immature Granulocytes (promyelocytes, myelocytes and metamyelocytes) > 1% indicates that a LEFT SHIFT is Present. Performed By: #### L 501.2300, L100.0100, L500.4050 #### [facility] [address] [place], [address] Lymphocytes/100 WBC (Bld) 38.7 % Normal 19-41 [facility] Comment on above: Performed By: #### L 501.2300, L100.0100, L500.4050 #### [facility] [address] [place], [address] MCH (RBC) [Entitic mass] 31.6 pg Normal 27.0-32.0 [facility] Comment on above: Performed By: #### L 501.2300, L100.0100, L500.4050 #### [facility] [address] [place], [address] MCHC (RBC) [Mass/Vol] 33.4 g/dL Normal 32-36 [facility] Comment on above: Performed By: #### L 501.2300, L100.0100, [id number] #### [facility] [address] [place], [address] MCV (RBC) [Entitic vol] 94.7 fL Normal 81-99 [facility] Comment on above: Performed By: #### L 501.2300, L100.0100, L500.4050 #### [facility] [address] [place], [address] Monocytes/100 WBC (Bld) 6.4 % Normal 0-10 [facility] Comment on above: Performed By: #### L 501.2300, L100.0100, L500.4050 #### [facility] [address] [place], [address] Neutrophils/100 WBC (Bld) 53.2 % Normal 47-70 [facility] Comment on above: Performed By: #### L 501.2300, L100.0100, L500.4050 #### [facility] [address] [place], [address] Nucleated RBC (Bld) [#/Vol] 0 10*3/uL Normal 0-5 [facility] Comment on above: Performed By: #### L 501.2300, L100.0100, L500.4050 #### [facility] [address] [place], [address] Platelet mean volume (Bld) [Entitic vol] 10.7 fL Normal 6.2-12.0 [facility] Comment on above: Performed By: #### L 501.2300, L100.0100, L500.4050 #### [facility] [address] [place], [address] Platelets (Bld) [#/Vol] 293 10*3/uL Normal 150-450 [facility] Comment on above: Performed By: #### L 501.2300, L100.0100, L500.4050 #### [facility] [address] [place], [address] RBC (Bld) [#/Vol] 4.74 10*6/uL Normal 4.2-5.4 [facility] Comment on above: Performed By: #### L 501.2300, L100.0100, L500.4050 #### [facility] [address] [place], [address] RDW SD 45.5 fl High 35.1-43.9 [facility] Comment on above: Performed By: #### L 501.2300, L100.0100, L500.4050 #### [facility] [address] [place], [address] WBC (Bld) [#/Vol] 14.3 10*3/uL High 4.4-11.0 [facility] Comment on above: Performed By: #### L 501.2300, L100.0100, L500.4050 #### [facility] [address] [place], [address] Carbon dioxide, total [Moles /volume] in Central venous bloodOrdered By: Len Lazo on 08-10-2024 CO2 [Moles/Vol] 22.3 mmol/L 21.0-32.0 [facility] Chloride assayOrdered By: Eder luis danielgagan Lazo on 08-10-2024 Chloride [Moles/Vol] 113 mmol/L High 98-108 [facility] Comprehensive Metabolic Prof ilon 08-10-2024 Albumin [Mass/Vol] 4.6 g/dL Normal 3.5-5.0 [facility] Comment on above: Performed By: #### L 501.2300, L100.0100, L500.4050 #### [facility] [address] [place], [address] Albumin/Globulin [Mass ratio] 1.5 {ratio} Normal 0.9-2.4 [facility] Comment on above: Performed By: #### L 501.2300, L100.0100, [id number] #### [facility] [address] [place], [address] ALK PHOS 79 U/L Normal 35-104 [facility] Comment on above: Performed By: #### L 501.2300, L100.0100, L500.4050 #### [facility] [address] [place], [address] ALT [Catalytic activity/Vol] 115 U/L High <=34 [facility] Comment on above: Performed By: #### L 501.2300, L100.0100, [id number] #### [facility] [address] [place], [address] AST [Catalytic activity/Vol] 99 U/L High <=31 [facility] Comment on above: Performed By: #### L 501.2300, L100.0100, L500.4050 #### [facility] [address] [place], [address] Bilirubin [Mass/Vol] 1.49 mg/dL High 0.00-1.30 [facility] Comment on above: Performed By: #### L 501.2300, L100.0100, L500.4050 #### [facility] [address] [place], [address] BUN/CRE 14.2 RATIO Normal 10-20 [facility] Comment on above: Performed By: #### L 501.2300, L100.0100, [id number] #### [facility] [address] [place], [address] Calcium [Mass/Vol] 9.2 mg/dL Normal 7.6-11.0 [facility] Comment on above: Performed By: #### L 501.2300, L100.0100, [id number] #### [facility] [address] [place], [address] Chloride [Moles/Vol] 113 mmol/L High 98-108 [facility] Comment on above: Performed By: #### L 501.2300, L100.0100, L500.4050 #### [facility] [address] [place], [address] CO2 [Moles/Vol] 22.3 mmol/L Normal 21.0-32.0 [facility] Comment on above: Performed By: #### L 501.2300, L100.0100, L500.4050 #### [facility] [address] [place], [address] Creatinine [Mass/Vol] 0.70 mg/dL Normal 0.70-1.20 [facility] Comment on above: Performed By: #### L 501.2300, L100.0100, L500.4050 #### [facility] [address] [place], [address] ECRCL 81.97 ml/min Normal 50-250 [facility] Comment on above: Performed By: #### L 501.2300, L100.0100, L500.4050 #### [facility] [address] [place], [address] GAP 10 Normal 5-15 [facility] Comment on above: Performed By: #### L 501.2300, L100.0100, L500.4050 #### [facility] [address] [place], [address] GFR/1.73 sq M.predicted among non-blacks MDRD (S/P/Bld) [Vol rate/Area] 100 mL/min/{1.73_m2} Normal >60 [facility] Comment on above: Result Comment: mL/m in/1.73m2 CKD-EPI Creatinine Equation (2020) Performed By: #### L 501.2300, L100.0100, L500.4050 #### [facility] [address] [place], [address] Globulin (S) [Mass/Vol] 3.1 g/dL Normal 2.2-4.2 [facility] Comment on above: Performed By: #### L 501.2300, L100.0100, L500.4050 #### [facility] [address] [place], [address] Glucose [Mass/Vol] 91 mg/dL Normal 70-99 [facility] Comment on above: Performed By: #### L 501.2300, L100.0100, L500.4050 #### [facility] [address] [place], [address] Potassium [Moles/Vol] 3.9 mmol/L Normal 3.3-5.1 [facility] Comment on above: Result Comment: Hemo lysis present, Results??could be affected. ?? Performed By: #### L 501.2300, L100.0100, L500.4050 #### [facility] [address] [place], [address] Sodium [Moles/Vol] 145 mmol/L Normal 133-145 [facility] Comment on above: Performed By: #### L 501.2300, L100.0100, L500.4050 #### [facility] [address] [place], [address] T PROT 7.6 g/dL Normal 5.9-8.4 [facility] Comment on above: Performed By: #### L 501.2300, L100.0100, L500.4050 #### [facility] [address] [place], [address] Urea nitrogen [Mass/Vol] 10 mg/dL Normal 4-19 [facility] Comment on above: Performed By: #### L 501.2300, L100.0100, L500.4050 #### [facility] [address] [place], [address] Eosinophil percentageOrdered By: Len Lazo on 08-10-2024 Eosinophils/100 WBC (Bld) 0.7 % 0-5 [facility] Erythrocyte distribution wid th ratioOrdered By: Len Lazo on 08-10-2024 Erythrocyte distribution width (RBC) [Ratio] 13.1 % 11.6-14.6 [facility] Erythrocyte distribution wid th standard deviationOrdered By: Len Lazo on 08-10-2024 Erythrocyte distribution width (RBC) [Ratio] 45.5 fl High 35.1-43.9 [facility] Glomerular filtration rate ( GFR) estimation/1.73 sq m using serum, plasma, or whole bOrdered By: Len Lazo on 08-10-2024 GFR/1.73 sq M.predicted among non-blacks MDRD (S/P/Bld) [Vol rate/Area] 100 mL/min/{1.73_m2} >60 [facility] Comment on above: mL/min/1.73m2 CKD-EP I Creatinine Equation (2020) Hematocrit Auto (Bld) [Volum e fraction]Ordered By: Len Lazo on 08-10-2024 Hematocrit (Bld) [Volume fraction] 44.9 % 37-47 [facility] Hemoglobin measurementOrdere d By: Len Lazo on 08-10-2024 Hemoglobin (Bld) [Mass/Vol] 15.0 g/dL 12.0-15.0 [facility] Immature granulocytes/100 WB C Auto (Bld)Ordered By: Len Lzao on 08-10-2024 Immature granulocytes/100 WBC (Bld) 0.300 % 0.0-0.9 [facility] Comment on above: IG% - Immature Granu locytes (promyelocytes, myelocytes and metamyelocytes) > 1% indicates that a LEFT SHIFT is Present. Laboratory - Chemistry and C hemistry - challengeOrdered By: Len Lazo on 08-10-2024 AST [Catalytic activity/Vol] 99 U/L High <32 [facility] MCV (mean corpuscular volume ) determinationOrdered By: Len Lazo on 08-10-2024 MCV (RBC) [Entitic vol] 94.7 fL 81-99 [facility] Mean corpuscular hemoglobin (MCH) determinationOrdered By: Len Lazo on 08-10-2024 MCH (RBC) [Entitic mass] 31.6 pg 27.0-32.0 [facility] Mean corpuscular hemoglobin concentration (MCHC) determinationOrdered By: Len Lazo on 08-10-2024 MCHC (RBC) [Mass/Vol] 33.4 g/dL 32-36 [facility] Comment on above: Delta: 35.2 on 08/09-1714 Mean platelet volume determi nationOrdered By: Len Lazo on 08-10-2024 Platelet mean volume (Bld) [Entitic vol] 10.7 fL 6.2-12.0 [facility] Monocyte percentageOrdered B y: Len Lazo on 08-10-2024 Monocytes/100 WBC (Bld) 6.4 % 0-10 [facility] [facility] Neutrophil percentageOrdered By: Len Lazo on 08-10-2024 Neutrophils/100 WBC (Bld) 53.2 % 47-70 [facility] Nucleated red blood cell per centageOrdered By: Len Lazo on 08-10-2024 Nucleated RBC/100 WBC (Bld) [Ratio] 0 % 0-5 [facility] Phosphoruson 08-10-2024 Phosphate [Mass/Vol] 1.6 mg/dL Low 2.7-4.5 [facility] Comment on above: Performed By: #### L 501.2300, L100.0100, L500.4050 #### [facility] [address] [place], [address] Platelet countOrdered By: Eder Lazo on 08-10-2024 Platelets (Bld) [#/Vol] 293 10*3/uL 150-450 [facility] Potassium measurement (mass/ volume)Ordered By: Len Lazo on 08-10-2024 Potassium (Unsp spec) [Mass/Vol] 3.9 mmol/L 3.3-5.1 [facility] Comment on above: Hemolysis present, R esults could be affected. RBC Auto (Bld) [#/Vol]Ordere d By: Len Lazo on 08-10-2024 RBC (Bld) [#/Vol] 4.74 10*6/uL 4.2-5.4 [facility] Serum creatinine measurement (mass/volume)Ordered By: Len Lazo on 08-10-2024 Creatinine [Mass/Vol] 0.70 mg/dL 0.70-1.20 [facility] Serum globulin measurementOr dered By: Len Lazo on 08-10-2024 Globulin (S) [Mass/Vol] 3.1 g/dL 2.2-4.2 [facility] Serum glucose measurement (m ass/volume)Ordered By: Len Lazo on 08-10-2024 Glucose [Mass/Vol] 91 mg/dL 70-99 [facility] Serum or plasma alanine crowder otransferase (ALT) measurementOrdered By: Len Lazo on 08-10-2024 ALT [Catalytic activity/Vol] 115 U/L High <35 [facility] Serum or plasma albumin lani urement (mass/volume)Ordered By: Len Lazo on 08-10-2024 Albumin [Mass/Vol] 4.6 g/dL 3.5-5.0 [facility] Serum or plasma albumin/glob ulin mass ratioOrdered By: Len Lazo on 08-10-2024 Albumin/Globulin [Mass ratio] 1.5 {ratio} 0.9-2.4 [facility] Serum or plasma alkaline chelita sphatase measurementOrdered By: Len Lazo on 08-10-2024 ALP [Catalytic activity/Vol] 79 U/L 35-104 [facility] Serum or plasma calcium lani urement (mass/volume)Ordered By: Len Lazo on 08-10-2024 Calcium [Mass/Vol] 9.2 mg/dL 7.6-11.0 [facility] Serum or plasma urea nitroge n measurement (mass/volume)Ordered By: Len Lazo on 08-10-2024 Urea nitrogen [Mass/Vol] 10 mg/dL 4-19 [facility] Sodium levelOrdered By: Dipak Lazo on 08-10-2024 Sodium [Moles/Vol] 145 mmol/L 133-145 [facility] Total proteinOrdered By: El aLzo on 08-10-2024 Protein [Mass/Vol] 7.6 g/dL 5.9-8.4 [facility] White blood cell (WBC) count Ordered By: Len Lazo on 08-10-2024 WBC (Bld) [#/Vol] 14.3 10*3/uL High 4.4-11.0 [facility] Abdomen/Pelvis W IV Cont ONL Yon 08-09-2024 Abdomen/Pelvis W IV Cont ONLY [facility] Imaging Services [address] [place] [id number] Abdomen/Pelvis W IV Cont ONLY MR#: [id number] Acct: [id number] Name: NOEMI ALONSO Rep #: [id number] : 1965 F 59 From: Du Guevara MD PCP: Dr. Osvaldo Sue MD Status: [facility] ER Study: Abdomen/Pelvis W IV Cont ONLY Date of Exam: Exam# [id number] Ordering Dr: Louie Bacon DO PROCEDURE: ABDOMEN/PELVIS W IV CONT ONLY 08/09/2024 REASON FOR EXAM: ABDOMINAL PAIN, VOMITING AND DIARRHEA TECHNIQUE: Abdomen and pelvis CT with intravenous contrast. Coronal and Sagittal reconstruction series were provided One or more dose reduction techniques were used (e.g., Automated exposure control, adjustment of the mA and/or kV according to patient size, use of iterative reconstruction technique. RADIATION DOSE SUMMARY: CTDlvol: 29.9 mGy DLP: 803.3 mGycm COMPARISON: Abdominal ultrasound 04/03/2024 FINDINGS: Lung bases: Solid nodules measuring 4 mm in the right middle lobe (series 2, image 1) and right lower lobe (image 11). Liver: Mildly hypoattenuating. Gallbladder: Surgically absent. Spleen: Unremarkable Pancreas: Unremarkable Adrenals: Unremarkable Kidneys: No stone or hydronephrosis. Bladder: Predominantly collapsed, limiting evaluation Reproductive Organs: Cystic lesion in the left ovary measuring up to 4.3 cm and right ovary measuring 2.1 cm. Bilateral tubal ligation clips. Bowel: Hiatal hernia. No obstruction or inflammation. Unremarkable appendix. Lymph nodes: No lymphadenopathy. Vasculature: Mild diffuse atherosclerotic calcifications are noted. Peritoneum / Retroperitoneum: Unremarkable Bones: Mild degenerative changes in the lower lumbar spine. CT/Abdomen/Pelvis W IV Cont ONLY IMPRESSION: 1. No acute intra-abdominal abnormality. 2. Mild hepatic steatosis. 3. Cystic lesions in both ovaries, the largest measuring 4.3 cm. Recommend nonemergent pelvic ultrasound per ACR white paper guidelines. 4. Solid pulmonary nodules measuring up to 4 mm in the right lung, consider CT chest in 12 months if patient is at high risk for malignancy per Fleischner society guidelines. Reading Location: [id number] CC: Dr. Osvaldo Sue MD; Dr. Louie Bacon DO Internet Programmer: Signed Normal [facility] Absolute lymphocyte countOrd ered By: Louie Bacon on 08-09-2024 Lymphocytes Auto (Unsp spec) [#/Vol] 4.07 10*3/uL 0.83-4.51 [facility] Absolute neutrophil countOrd ered By: Louie Bacon on 08-09-2024 Neutrophils (Bld) [#/Vol] 9.4 10*3/uL High 2.0-7.7 [facility] Anion gap in Serum or Plasma Ordered By: Louie Bacon on 08-09-2024 Anion gap [Moles/Vol] 16 mmol/L High 5-15 [facility] Automated lymphocyte count a s percentage of total leukocytesOrdered By: Louie Bacon on 08-09-2024 Lymphocytes/100 WBC Auto (Unsp spec) 27.7 % 19-41 [facility] BUN/creatinine ratioOrdered By: Louie Bacon on 08-09-2024 Urea nitrogen/Creatinine [Mass ratio] 17.2 mg/mg 10- [facility] Basic Metabolic Profile (BMP )on 08-09-2024 BUN/CRE 17.2 RATIO Normal - [facility] Comment on above: Performed By: #### L 503.6005, L500.2500, L100.0100 ####[facility] [address] [place], [address] Calcium [Mass/Vol] 10.2 mg/dL Normal 7.6-11.0 [facility] Comment on above: Performed By: #### L 503.6005, L500.2500, L100.0100 ####[facility] [address] [place], [address] Chloride [Moles/Vol] 104 mmol/L Normal 98-108 [facility] Comment on above: Performed By: #### L 503.6005, L500.2500, L100.0100 ####[facility] [address] [place], [address] CO2 [Moles/Vol] 26.2 mmol/L Normal 21.0-32.0 [facility] Comment on above: Performed By: #### L 503.6005, L500.2500, L100.0100 ####[facility] [address] [place], [address] Creatinine [Mass/Vol] 0.76 mg/dL Normal 0.70-1.20 [facility] Comment on above: Performed By: #### L 503.6005, L500.2500, L100.0100 ####[facility] [address] [place], [address] ECRCL 80.94 ml/min Normal 50-250 [facility] Comment on above: Performed By: #### L 503.6005, L500.2500, L100.0100 ####[facility] [address] [place], [address] GAP 16 High 5-15 [facility] Comment on above: Performed By: #### L 503.6005, L500.2500, L100.0100 ####[facility] [address] [place], [address] GFR/1.73 sq M.predicted among non-blacks MDRD (S/P/Bld) [Vol rate/Area] 91 mL/min/{1.73_m2} Normal >60 [facility] Comment on above: Result Comment: mL/m in/1.73m2 CKD-EPI Creatinine Equation (2020) Performed By: #### L 503.6005, L500.2500, L100.0100 ####[facility] [address] [place], [address] Glucose [Mass/Vol] 131 mg/dL High 70-99 [facility] Comment on above: Performed By: #### L 503.6005, L500.2500, L100.0100 ####[facility] [address] [place], [address] Potassium [Moles/Vol] 2.9 mmol/L Low 3.3-5.1 [facility] Comment on above: Performed By: #### L 503.6005, L500.2500, L100.0100 ####[facility] [address] [place], [address] Sodium [Moles/Vol] 146 mmol/L High 133-145 [facility] Comment on above: Performed By: #### L 503.6005, L500.2500, L100.0100 ####[facility] [address] [place], [address] Urea nitrogen [Mass/Vol] 13 mg/dL Normal 4-19 [facility] Comment on above: Performed By: #### L 503.6005, L500.2500, L100.0100 ####[facility] [address] [place], [address] Basophil percentageOrdered B y: Remus Ungur on 08-09-2024 Basophils/100 WBC (Bld) 0.4 % 0-1 [facility] Bilirubin Test strip Ql (U)O rdered By: Remus Ungur on 08-09-2024 Bilirubin Ql (U) Negative Negative [facility] CBC W/Diff, Automatedon Absolute Lymph 4.07 X10 3/uL Normal 0.83-4.51 [facility] Comment on above: Performed By: #### L 503.6005, L500.2500, L100.0100 #### [facility] [address] [place], [address] Absolute Neut 9.4 X10 3/uL High 2.0-7.7 [facility] Comment on above: Performed By: #### L 503.6005, L500.2500, L100.0100 #### [facility] [address] [place], [address] Basophils/100 WBC (Bld) 0.4 % Normal 0-1 [facility] Comment on above: Performed By: #### L 503.6005, L500.2500, L100.0100 #### [facility] [address] [place], [address] Eosinophils/100 WBC (Bld) 0.0 % Normal 0-5 [facility] Comment on above: Performed By: #### L 503.6005, L500.2500, L100.0100 #### [facility] [address] [place], [address] Erythrocyte distribution width (RBC) [Ratio] 13.0 % Normal 11.6-14.6 [facility] Comment on above: Performed By: #### L 503.6005, L500.2500, L100.0100 #### [facility] [address] [place], [address] Hematocrit (Bld) [Volume fraction] 45.8 % Normal 37-47 [facility] Comment on above: Performed By: #### L 503.6005, L500.2500, L100.0100 #### [facility] [address] [place], [address] Hemoglobin (Bld) [Mass/Vol] 16.1 g/dL High 12.0-15.0 [facility] Comment on above: Performed By: #### L 503.6005, L500.2500, L100.0100 #### [facility] [address] [place], [address] IG% 0.400 Normal 0.0-0.9 [facility] Comment on above: Result Comment: IG% - Immature Granulocytes (promyelocytes, myelocytes and metamyelocytes) > 1% indicates that a LEFT SHIFT is Present. Performed By: #### L 503.6005, L500.2500, L100.0100 #### [facility] [address] [place], [address] Lymphocytes/100 WBC (Bld) 27.7 % Normal 19-41 [facility] Comment on above: Performed By: #### L 503.6005, L500.2500, L100.0100 #### [facility] [address] [place], [address] MCH (RBC) [Entitic mass] 31.9 pg Normal 27.0-32.0 [facility] Comment on above: Performed By: #### L 503.6005, L500.2500, L100.0100 #### [facility] [address] [place], [address] MCHC (RBC) [Mass/Vol] 35.2 g/dL Normal 32-36 [facility] Comment on above: Performed By: #### L 503.6005, L500.2500, L100.0100 #### [facility] [address] [place], [address] MCV (RBC) [Entitic vol] 90.9 fL Normal 81-99 [facility] Comment on above: Performed By: #### L 503.6005, L500.2500, L100.0100 #### [facility] [address] [place], [address] Monocytes/100 WBC (Bld) 7.2 % Normal 0-10 [facility] Comment on above: Performed By: #### L 503.6005, L500.2500, L100.0100 #### [facility] [address] [place], [address] Neutrophils/100 WBC (Bld) 64.3 % Normal 47-70 [facility] Comment on above: Performed By: #### L 503.6005, L500.2500, L100.0100 #### [facility] [address] [place], [address] Nucleated RBC (Bld) [#/Vol] 0 10*3/uL Normal 0-5 [facility] Comment on above: Performed By: #### L 503.6005, L500.2500, L100.0100 #### [facility] [address] [place], [address] Platelet mean volume (Bld) [Entitic vol] 10.2 fL Normal 6.2-12.0 [facility] Comment on above: Performed By: #### L 503.6005, L500.2500, L100.0100 #### [facility] [address] [place], [address] Platelets (Bld) [#/Vol] 330 10*3/uL Normal 150-450 [facility] Comment on above: Performed By: #### L 503.6005, L500.2500, L100.0100 #### [facility] [address] [place], [address] RBC (Bld) [#/Vol] 5.04 10*6/uL Normal 4.2-5.4 [facility] Comment on above: Performed By: #### L 503.6005, L500.2500, L100.0100 #### [facility] [address] [place], [address] RDW SD 42.9 fl Normal 35.1-43.9 [facility] Comment on above: Performed By: #### L 503.6005, L500.2500, L100.0100 #### [facility] [address] [place], [address] WBC (Bld) [#/Vol] 14.7 10*3/uL High 4.4-11.0 [facility] Comment on above: Performed By: #### L 503.6005, L500.2500, L100.0100 #### [facility] [address] [place], [address] Carbon dioxide, total [Moles /volume] in Central venous bloodOrdered By: Louie Bacon on 08-09-2024 CO2 [Moles/Vol] 26.2 mmol/L 21.0-32.0 [facility] Chloride assayOrdered By: Syeda Bacon on 08-09-2024 Chloride [Moles/Vol] 104 mmol/L 98-108 [facility] Emergency Department Summary on 08-09-2024 Emergency Department Summary [facility] Medical Records Department [address] [place] [address] Emergency Department Summary 08/09/24 MR#: [id number] Acct: [id number] Name: NOEMI ALONSO Rep #: [id number] : 1965 59 From: Louie Bacon DO PCP: Dr. Osvaldo Sue MD Status:ADM IN Location: MS3 [id number] HPI History of Present Illness Chief Complaint: Nausea/Vomiting/Diarr hea Detail of Chief Complaint: Nausea, vomiting, diarrhea Informant: patient Narrative Narrative: Patient presents with vomiting and diarrhea that started 4 days ago. Patient states that she initially started with some pain in her right side 5 days ago and went to [facility] the following day where she had blood work and a CAT scan that was unremarkable. Subsequently vomiting and diarrhea started. She has been vomiting more than 10 times a day and frequent watery stools. She started taking Imodium and today she has not had any diarrhea. A lot of the abdominal pain has resolved. She denies sick contacts. Denies recent travel. She denies recent antibiotic usage. [facility] Medical History (Updated 08/09/24 @ 19:[address] Louie Bacon DO) Old myocardial infarction Mixed hyperlipidemia GERD (gastroesophageal reflux disease) Essential hypertension Lung nodules Aneurysm of left subclavian artery Chest pain Dehydration Former tobacco use Migraine Hypertension Elevated LFTs Hypokalemia Gastroenteritis No significant past medical history Home Medications ???Medication ???Instructions ???Recorded ???Last Taken ???Type propranolol 160 mg capsule,24 160 mg PO DAILY 05/03/19 Unknown H istory hr,extended release famotidine 20 mg tablet 20 mg PO BID #60 tabs 05/04/19 Unk nown Rx naproxen 500 mg tablet 500 mg PO BID #14 tabs 04/15/20 Un known Rx amitriptyline 25 mg tablet 25 mg PO QHS 08/19/22 Unknown Hist ory atorvastatin 20 mg tablet 20 mg PO QHS 08/19/22 Unknown Hist ory cyclobenzaprine 10 mg tablet 10 mg PO BID PRN 08/19/22 Unknown History estradiol 0.01% (0.1 mg/gram) 0.5 appful vaginal .3XW 08/19/22 U nknown History vaginal cream (Estrace) loratadine 10 mg tablet 10 mg PO DAILY 08/19/22 Unknown Hi story omeprazole 40 mg capsule,delayed 40 mg PO DAILY 08/19/22 Unknown Hi story release sertraline 100 mg tablet 100 mg PO DAILY 08/19/22 Unknown H istory sumatriptan succinate 6 mg/0.5 mL 6 mg subcut Q1-4H PRN 08/19/22 Un known History subcutaneous pen injector Allergy/AdvReac Type Severity Reaction Status Date / Time No Known Allergies Allergy Verified 08/09/24 15:47 Surgical History History of left heart catheterization (LHC) ( 04/29/14) Social History (Updated 08/19/22 @ 10:11 by Mirella Ha) Smoking Status: Former smoker ROS ROS ED Review of Systems ROS Unobtainable: other Constitutional Constitutional ED: Reports lethargy; Denies chills, fever(s), sweats or weight loss Eyes Eyes: Denies blurry vision, change in vision or diplopia ENT ENT ED: Denies rhinorrhea or sore throat Cardiovascular Cardiovascular: Denies chest pain, orthopnea or racing heartbeat Respiratory/Chest Respiratory/Chest: Reports dyspnea on exertion; Denies dyspnea, orthopnea or sputum Gastrointestinal Gastrointestinal: Reports abdominal pain, diarrhea, nausea and vomiting Genitourinary Genitourinary ED: Denies dysuria, hematuria or urinary frequency Musculoskeletal Musculoskeletal: Denies arthralgias, back pain, myalgias or neck pain Integumentary Denies abscess, Abrasions or rash Neurologic Neurologic: Denies headache(s) or weakness Psychiatric Psychiatric: Denies anxiety, depression or suicidal thoughts Endocrine Endocrinology: Denies polydipsia, polyphagia or polyuria Hematologic/Lymphatic Hematologic/Lymphatic : Denies easy bleeding, easy bruising or lymphadenopathy Allergic/Immunologic Allergic/Immunologic ED: Denies mouth swelling, tongue swelling or urticaria EXAM Physical Exam Const Vital Signs: 08/09/24 15:45 08/09/24 17:45 08/09/24 19:00 Temperature 96.3 F L Temperature Source Temporal Pulse Rate 92 53 L 63 Respiratory Rate 19 H 18 18 Blood Pressure 187/107 H 151/82 H Blood Pressure Mean 133 100 Pulse Ox 98 99 97 Oxygen Delivery Method Room Air Positive well nourished and well developed General Appearance ED: well developed and NAD HEENT Reports TM's clear and moist mucous membranes normocephalic and atraumatic; Negative for trauma or tenderness Tympanic Membrane ED: Yes TM's clear Eyes PERRL and EOMs intact bilaterally General Eye ED: Negative for pale conjunctiva or scleral icterus Neck no lymphadenopathy, supple and no JVD General: Negative for tenderness Chest Wall inspection of chest normal and palpation of (more content not included)... Normal [facility] Eosinophil percentageOrdered By: Remus Arleen on 08-09-2024 Eosinophils/100 WBC (Bld) 0.0 % 0-5 [facility] Erythrocyte distribution wid th ratioOrdered By: Remus Ungvalery on 08-09-2024 Erythrocyte distribution width (RBC) [Ratio] 13.0 % 11.6-14.6 [facility] Erythrocyte distribution wid th standard deviationOrdered By: Remus Ungvalery on 08-09-2024 Erythrocyte distribution width (RBC) [Ratio] 42.9 fl 35.1-43.9 [facility] Glomerular filtration rate ( GFR) estimation/1.73 sq m using serum, plasma, or whole bOrdered By: Louie Bacon on 08-09-2024 GFR/1.73 sq M.predicted among non-blacks MDRD (S/P/Bld) [Vol rate/Area] 91 mL/min/{1.73_m2} >60 [facility] Comment on above: mL/min/1.73m2 CKD-EP I Creatinine Equation (2020) H AND P Exam - [facility] 08-09-2024 H&P Exam - Hospitalist [facility] Medical Records Department [address] [place] [address] H P Exam - Hospitalist 08/09/241924 MR#: [id number] Acct: [id number] Name: NOEMI ALONSO Rep #: [id number] : 1965 59 From: Len Lafleur DO PCP: Dr. Osvaldo Sue MD Status:ADM IN Location: [place]3 [id number] [facility] - General General Date of Admission: 08/09/24 Date of Service: 08/09/24 Chief Complaint: Nausea, Vomiting and Diarrhea. HPI Narrative NOEMI ALONSO, is a 59 F with a past medical history of essential hypertension; on propranolol, hyperlipidemia; on atorvastatin, overweight; with BMI of 28.3 this admission, former tobacco abuse; with subsequent lung nodules, CAD; s/p SD with history of negative LHC (2014) @ [facility], history of aneurysm of Left subclavian artery, history of migraine headaches; on sumatriptan prn, depression; on trazodone, sertraline and amitriptyline, seasonal allergies; on loratadine, GERD; on omeprazole and famotidine, history of gastroenteritis, history of muscle spasms; on prn cyclobenzaprine BID prn and OA who presents to [facility] ER complaining of nausea, vomiting and diarrhea. Ms. Alonso reports her symptoms began approximately 5 days prior to admission with pain in her Right side and then 4 days ago she had nausea and vomiting with bilious emesis and nonbloody diarrhea. She went to [facility] where she had blood work and a CT scan of the abdomen and pelvis that was unremarkable and was subsequently discharged home. Unfortunately, she redeveloped her GI upset with nausea and vomiting she claims up to 10 times per day with frequent watery stools. She then began taking Imodium and has not had any further diarrhea. She also admits her abdominal pain has essentially resolved. She admits to lethargy, dyspnea on exertion and migraine headache. She denies recent sick contacts, recent antibiotics or significant travel. There was no report of fever, chills, weight loss, changes in vision, runny nose, sore throat, ear pain, chest pain, palpitations, heart racing, lower extremity edema, dysuria, hematuria, arthralgias, myalgias or rash. In the ER she underwent a CT scan of the abdomen pelvis that revealed no acute intra- abdominal abnormality with mild hepatic steatosis with cystic lesions in both ovaries with the largest measuring 4.3 cm with nonemergent pelvic ultrasound recommended and solid pulmonary nodules measuring up to 4 mm in the Right lung with recommendation to consider CT of chest in 12 months. S he was then diagnosed with suspected Viral Gastroenteritis; with Nausea, Vomiting and bilious emesis complicated by Acute Hypokalemia of 2.9 mmol/L present on admission along with UA positive for Acute Cystitis; without hematuria with Leukocytosis of 14.7 K present on admission and she was then admitted to the general medical floor for ongoing care for stay that is expected to extend beyond 2 midnights. [facility] Medical History Old myocardial infarction Mixed hyperlipidemia GERD (gastroesophageal reflux disease) Essential hypertension Lung nodules Aneurysm of left subclavian artery Chest pain Dehydration Former tobacco use Migraine Hypertension Elevated LFTs Hypokalemia Gastroenteritis No significant past medical history Home Medications ???Medication ???Instructions ???Recorded ???Last Taken ???Type propranolol 160 mg capsule,24 160 mg PO DAILY 05/03/19 Unknown H istory hr,extended release famotidine 20 mg tablet 20 mg PO BID #60 tabs 05/04/19 Unk nown Rx naproxen 500 mg tablet 500 mg PO BID #14 tabs 04/15/20 Un known Rx atorvastatin 20 mg tablet 20 mg PO QHS 08/19/22 Unknown Hist ory loratadine 10 mg tablet 10 mg PO DAILY 08/19/22 Unknown Hi story omeprazole 40 mg capsule,delayed 40 mg PO DAILY 08/19/22 Unknown Hi story release sumatriptan succinate 6 mg/0.5 mL 6 mg subcut Q1-4H PRN migraine Unknown History subcutaneous pen injector headache gabapentin 300 mg capsule 300 mg PO TID 08/09/24 Unknown His tory ondansetron HCl 4 mg tablet 4 mg PO Q6H PRN nausea and vomitin g 08/09/24 Unknown History trazodone 50 mg tablet 50 mg PO QHS 08/09/24 Unknown Hist ory Allergy/AdvReac Type Severity Reaction Status Date / Time No Known Allergies Allergy Verified 08/09/24 15:47 Surgical History History of left heart catheterization (LHC) ( 04/29/14) Social History Smoking Status: Former smoker ROS ROS Narrative Review of Systems: Constitutional: Patient denies fever or chills. Eyes: Patient denies changes in vision or discharge from eyes. ENT: Patient denies runny nose, sore throat or ear pain. Resp: Pat (more content not included)... Normal [facility] Hematocrit Auto (Bld) [Volum e fraction]Ordered By: Louie Bacon on 08-09-2024 Hematocrit (Bld) [Volume fraction] 45.8 % 37-47 [facility] Hemoglobin measurementOrdere d By: Louie Bacon on 08-09-2024 Hemoglobin (Bld) [Mass/Vol] 16.1 g/dL High 12.0-15.0 [facility] Immature granulocytes/100 WB C Auto (Bld)Ordered By: Louie Bacon on 08-09-2024 Immature granulocytes/100 WBC (Bld) 0.400 % 0.0-0.9 [facility] Comment on above: IG% - Immature Granu locytes (promyelocytes, myelocytes and metamyelocytes) > 1% indicates that a LEFT SHIFT is Present. Ketones Test strip Ql (U)Ord ered By: Louie Bacon on 08-09-2024 Ketones Ql (U) 15 mg/dl High Negative [facility] Lactic Acidon 08-09-2024 Lactate [Moles/Vol] 1.7 mmol/L Normal 0.0-2.0 [facility] Comment on above: Performed By: #### L 503.6005 ####[facility] [address] [place], [place], [id number] Lactate [Moles/Vol] 2.0 mmol/L Normal 0.0-2.0 [facility] Comment on above: Order Comment: Y Result Comment: Crit ical Result(s) Called ZARMSTRONG at:1801 by: DEJUAN??Results read back by same. Performed By: #### L 503.6005, L500.2500, L100.0100 ####[facility] [id number] [facility] [place], [place], [id number] Lactic acid measurementOrder ed By: Louie Bacon on 08-09-2024 Lactate [Moles/Vol] 1.7 mmol/L 0.0-2.0 [facility] Lactate [Moles/Vol] 2.0 mmol/L 0.0-2.0 [facility] Comment on above: Critical Result(s) C alled ZARMSTRONG at:1801 by: DEJUAN Results read back by same. MCV (mean corpuscular volume ) determinationOrdered By: Louie Bacon on 08-09-2024 MCV (RBC) [Entitic vol] 90.9 fL 81-99 [facility] Magnesiumon 08-09-2024 Magnesium [Mass/Vol] 2.1 mg/dL Normal 1.5-2.2 [facility] Comment on above: Performed By: #### L 501.5200 #### [facility] [address] [place], [place], [id number] Magnesium measurement (mass/ volume)Ordered By: Len Lazo on 08-09-2024 Magnesium (Unsp spec) [Mass/Vol] 2.1 mg/dL 1.5-2.2 [facility] Mean corpuscular hemoglobin (MCH) determinationOrdered By: Louie Bacon on 08-09-2024 MCH (RBC) [Entitic mass] 31.9 pg 27.0-32.0 [facility] Mean corpuscular hemoglobin concentration (MCHC) determinationOrdered By: Louie Bacon on 08-09-2024 MCHC (RBC) [Mass/Vol] 35.2 g/dL 32-36 [facility] Mean platelet volume determi nationOrdered By: Louie Bacon on 08-09-2024 Platelet mean volume (Bld) [Entitic vol] 10.2 fL 6.2-12.0 [facility] Microscopic analysis of urin e for red blood cells (RBC)Ordered By: Louie Bacon on 08-09-2024 Microscopic analysis of urine for red blood cells (RBC) 0-5 SEEN /hpf 0-5 [facility] Monocyte percentageOrdered B y: Louie Bacon on 08-09-2024 Monocytes/100 WBC (Bld) 7.2 % 0-10 [facility] Mucus LM Ql (Urine sed)Order ed By: Louie Bacon on 08-09-2024 Mucus Ql (Urine sed) 3+ /hpf [facility] Neutrophil percentageOrdered By: Louie Bacon on 08-09-2024 Neutrophils/100 WBC (Bld) 64.3 % 47-70 [facility] Nitrite Test strip Ql (U)Ord ered By: Louie Bacon on 08-09-2024 Nitrite Ql (U) Negative Negative [facility] Nucleated red blood cell per centageOrdered By: Louie Bacon on 08-09-2024 Nucleated RBC/100 WBC (Bld) [Ratio] 0 % 0-5 [facility] Platelet countOrdered By: Syeda Bacon on 08-09-2024 Platelets (Bld) [#/Vol] 330 10*3/uL 150-450 [facility] Potassium measurement (mass/ volume)Ordered By: Louie Bacon on 08-09-2024 Potassium (Unsp spec) [Mass/Vol] 2.9 mmol/L Low 3.3-5.1 [facility] Protein Test strip Ql (U)Ord ered By: Louie Bacon on 08-09-2024 Protein Ql (U) 30 mg/dl High Negative [facility] RBC Auto (Bld) [#/Vol]Ordere d By: Louie Bacon on 08-09-2024 RBC (Bld) [#/Vol] 5.04 10*6/uL 4.2-5.4 [facility] Serum creatinine measurement (mass/volume)Ordered By: Louie Bacon on 08-09-2024 Creatinine [Mass/Vol] 0.76 mg/dL 0.70-1.20 [facility] Serum glucose measurement (m ass/volume)Ordered By: Louie Bacon on 08-09-2024 Glucose [Mass/Vol] 131 mg/dL High 70-99 [facility] Serum or plasma calcium lani urement (mass/volume)Ordered By: Louie Bacon on 08-09-2024 Calcium [Mass/Vol] 10.2 mg/dL 7.6-11.0 [facility] Serum or plasma urea nitroge n measurement (mass/volume)Ordered By: Louie Bacon on 08-09-2024 Urea nitrogen [Mass/Vol] 13 mg/dL 4-19 [facility] Sodium levelOrdered By: Jaspal Bacon on 08-09-2024 Sodium [Moles/Vol] 146 mmol/L High 133-145 [facility] Squamous epithelial cells de tection in urine sediment by light microscopyOrdered By: Louie Bacon on 08-09-2024 Epithelial cells.squamous LM Ql (Urine sed) 10-25 SEEN /hpf 5-10 [facility] TSH DL <= 0.005 mIU/L QnOrde red By: Len Lazo on 08-09-2024 TSH Qn 1.210 uIU/mL 0.300-4.200 [facility] Thyroid Stim Hormone (TSH)on 08-09-2024 TSH 1.210 uIU/mL Normal 0.300-4.200 [facility] Comment on above: Performed By: #### L 501.9520 #### [facility] [address] [place], [address] Urinalysis, Completeon 08-09 RBC 0-5 SEEN Normal 0-5 [facility] Comment on above: Order Comment: CINDY CTOR TO SPECIFY Performed By: #### L 400.0001 #### [facility] [address] [place], [address] BACTERIA 1+ /hpf Normal None Seen [facility] Comment on above: Order Comment: CINDY CTOR TO SPECIFY Performed By: #### L 400.0001 #### [facility] [address] [place], [address] EPI,SQUAMOUS 10-25 SEEN Normal 5-10 [facility] Comment on above: Order Comment: CINDY CTOR TO SPECIFY Performed By: #### L 400.0001 #### [facility] [address] [place], [address] WBC 5-10 SEEN Normal 0-5 [facility] Comment on above: Order Comment: CINDY CTOR TO SPECIFY Performed By: #### L 400.0001 #### [facility] [address] [place], [address] Mucus Ql (Urine sed) 3+ /hpf Normal [facility] Comment on above: Order Comment: CINDY CTOR TO SPECIFY Performed By: #### L 400.0001 #### [facility] [address] [place], [address] Urine clarityOrdered By: Lori Bacon on 08-09-2024 Clarity (U) Cloudy Clear [facility] Urine color determinationOrd ered By: Louie Bacon on 08-09-2024 Color (U) Yellow Yellow [facility] Urine glucose detectionOrder ed By: Louie Bacon on 08-09-2024 Glucose Ql (U) Normal mg/dl Normal [facility] Urine leukocyte esterase det ection by dipstickOrdered By: Louie Bacon on 08-09-2024 Leukocyte esterase Test strip Ql (U) 25 /ul High Negative [facility] Urine pHOrdered By: Louie Bond gur on 08-09-2024 pH (U) 6.5 [pH] 5.0 - 8.0 [facility] Urine sediment bacteria coun t by microscopy (number/high power field)Ordered By: Louie Bacon on 08-09-2024 Bacteria LM.HPF (Urine sed) [#/Area] 1 /[HPF] None Seen [facility] Urine specific gravity measu rementOrdered By: Louie Bacon on 08-09-2024 Specific gravity (U) [Rel density] 1.015 1.002-1.030 [facility] Urine urobilinogen measureme ntOrdered By: Louie Bacon on 08-09-2024 Urobilinogen Ql (U) 4 mg/dl High Normal [facility] White blood cell (WBC) count Ordered By: Louie Bacon on 08-09-2024 WBC (Bld) [#/Vol] 14.7 10*3/uL High 4.4-11.0 [facility] White blood cell countOrdere d By: Louie aBcon on 08-09-2024 White blood cell count 5-10 SEEN /hpf 0-5 [facility] ED MED ADMINISTRATION DETAIL on 08-08-2024 ED MED ADMINISTRATION DETAIL [facility] Medication Administration Record [address] [address] [id number] 08/05/2024 Patient: NOEMI ALONSO Sex: Female : 1965 Age: 59y MEASUREMENTS: Wt: 72.6 kg, Ht/Rafy: 61.0 in, BMI: 30.23 ALLERGIES: No known drug allergies Medication Ordered Medication Administration Date/Time IV NS 0.9 % 1000 10:28 05/04 IV NS 0.9 % 1000 mL started in bag#1 1000 mL at Started mL at 999 mL/hr 999 mL/hr via Site# 1. Allergies verified and confirmed 5 rights. Via 10:08/05/2024 (NOW x1) IV pump. IV patency established. IV site checked: no pain, redness, Vishnu BanksN. or swelling. IV flushed thoroughly pre-medication administration. Stopped Information reviewed with patient. Verbalizes understanding. - 11:08/05/2024 10:29 Cecilia Banks R.N. Scanned 11:08/05 Medication Discontinued: bag #1 infused. Total amount infused: 1000 mL. IV patency established. IV site checked: no pain, redness, or swelling. IV flushed thoroughly post-medication administration. - 11 Ria Wade R.N. Zofran IVP 4 mg 10:08/05 Zofran IVP 4 mg given via Site# 1. Allergies verified Given (NOW x1) and confirmed 5 rights. IV patency established. IV site checked: no 10:08/05/2024 pain, redness, or swelling. IV flushed thoroughly pre-medication Michelle Swann R.N. administration. Information reviewed with patient. Verbalizes Scanned understanding. - 10:29 Michelle Swann R.N. 1 of 2 [facility] Medication Ordered Medication Administration Date/Time KetorOLAC 10:08/05 [...] verified and confirmed 5 rights. IV patency 12:08/05/2024 mg (NOW x1, HIGH established. IV site checked: no pain, redness, or swelling. IV Michelle Swann R.N. ALERT flushed thoroughly pre-medication administration. Information Scanned MEDICATION) reviewed with patient. Verbalizes understanding. - 12:11 Michelle Swann R.N. 2 of 2 Normal [facility] ED NURSES CLINICAL NOTEon ED NURSES CLINICAL NOTE Nurse Narrative Nurse Clinical Narrative [place] [address] [place] [address] [phone] 08/05/2024 09:53:00 Patient: NOEMI ALONSO Sex: Female : 1965 Age: 59y [...] of organ dysfunction present. -- 10:00 08/05/24 AGNES Dunaway R.N. 09:59 08/05/24. BP: 168/73 MAP: 105. HR: 57. RR: 18. O2 saturation: 96% Temperature: 98.6 F. Pain level now 7/10. -- 10:00 08/05/24 AGNES Dunaway R.N. Measurements: 09:59 08/05/24 Wt: 72.6 kg, Ht/Rafy: 61.0 in, BMI: 30.23 -- 09:59 08/05/24 CEET Dot Dunaway R.N. Medications: trazodone 50 mg tablet: 1 tablet once a day . -- 09:57 08/05/24 CEET Dot Dunaway R.N. 1 of 4 Nurse Narrative propranolol ER 160 mg capsule,24 hr,extended release: 1 capsule once a day . -- 09:57 08/05/24 CEET Dot Dunaway R.N. omeprazole 40 mg capsule,delayed release: 1 capsule once a day . -- 09:57 08/05/24 CEET Dot Dunaway R.N. loratadine 10 mg tablet: 1 tablet once a day . -- 09:57 08/05/24 EDT Dot Dunaway R.N. gabapentin 300 mg capsule: 1 capsule three times a day . -- 09:57 08/05/24 EDT Dot Dunaway R.N. atorvastatin 20 mg tablet: 1 tablet once a day . -- 09:57 08/05/24 EDT Dot Dunaway R.N. 09:54 08/05/24. Preferred Pharmacy: [facility]). -- 10:00 08/05/24 EDT Dot Dunaway R.N. Allergies: no known drug allergies -- 09:56 08/05/24 CEET Dot Dunaway R.N. Problems: Myocardial Infarction -- [...] No risk factors identified. -- 10:03 08/05/24 EDJose Dunaway R.N. Interventions 09:54 08/05/24. Identification band on patient. To treatment room. Advanced care plan. Patient does not have advanced directive. -- 10:00 08/05/24 EDJose Dunaway R.N. PHYSICAL ASSESSMENT 10:45 08/05/24. GENERAL [...] is warm and dry. -- 10:50 08/05/24 AGNES Swann R.N. NURSING PROGRESS NOTES 10:08/05/24. ED physician at the patient's bedside (10:07 08/05/2024). -- 10:08 08/05/24 AGNES Swann R.N. 10:17 08/05/24. Urine collected. -- 10:34 08/05/24 AGNES Swann R.N. 10:28 08/05/24. IV NS 0.9 % 1000 mL started in bag#1 1000 mL at 999 mL/hr via Site# 1. Allergies verified and confirmed 5 rights. Via IV pump. IV patency established. IV site checked: no pain, redness, or swelling. IV flushed thoroughly pre-medication administration. Information reviewed with patient. Verbalizes understanding. -- 10:29 08/05/24 AGNES Swann R.N. 10:29 08/05/24. Zofran IVP 4 mg given via Site# 1. Allergies verified and confirmed 5 rights. IV patency established. IV site checked: no pain, redness, or swelling. IV flushed thoroughly pre-medication administration. Information reviewed with patient. Verbalizes understanding. -- 10:29 08/05/24 EDT Sha (more content not included)... Normal [facility] ED ORDER SHEET (CPOE ONLY)on 08-08-2024 ED ORDER SHEET (CPOE ONLY) Order Sheet Order Sheet [facility] [address] [place] [address] [id number] 08/05/2024 Patient: NOEMI ALONSO Sex: Female : 1965 Age: 59y MEASUREMENTS: Wt: 72.6 kg, Ht/Rafy: 61.0 in, BMI: 30.23 ALLERGIES: No known drug allergies MEDICATION/IV/DRIP/FL UID ORDERS Order Description Priority Entered Acknowledged Completed [...] for ordering with alerts: Clinical consideration given --10:08/05/2024 Sandip Ag M.D. HYDROmorphone (Dilaudid) 12:07 08/05/2024 12:09 12:11 IVP0.5 mg (NOW x1, HIGH Sandip Ag M.D. 08/05/2024 08/05/2024 ALERT MEDICATION) Michelle Banks, 1 of 3 Order Sheet R.N. R.N. Reason for ordering with alerts: Clinical [...] 08/05/2024 Clarence Erickson Shauna Ewing, R.N. R.N. Urinalysis Stat Stat 10:13 08/05/2024 10:45 08/05/2024 10:46 08/05/2024 Clarence Erickson Shauna Ewing, R.N. R.N. CRP Stat Stat 10:13 08/05/2024 10:45 08/05/2024 [...] M.D. (08/05/2024 16:58 EDT)] 3 of 3 Normal [facility] ED PHYSICIAN CLINICAL REPORT on 08-08-2024 ED PHYSICIAN CLINICAL REPORT Narrative Physician Clinical Narrative [address] [place] [address] [id number] 08/05/2024 09:53:00 [facility]: [id number] Sex: Female : 1965 Age: 59y Disposition: [...] The study was interpreted by the radiologist ([facility]). Laboratory Tests: C-REACTIVE PROTEIN Final PAOLA: [...] Final EDT 4 of 13 Narrative Lab (more content not included)... Normal [facility] ED SUPER BILLon 08-08-2024 ED SUPER BILL [facility] [address] [place] [address] [id number] 08/05/2024 Patient: NOEMI ALONSO Sex: Female : 1965 Age: 59y Facility Professional Category Item Description Code Code Quantity Fee Total Drugs Normal Saline 623855 1 $0.00 $0.00 1000cc (031093) Nurse/E/M EMERGENCY 216270 1 $0.00 $0.00 DEPT VISIT HIGH SEVERITYFUNCJ (09238-92) Nurse/IV/IM/Infusions Hydration 008386 1 $0.00 $0.00 additional hour (44954) Nurse/IV/IM/Infusions IVP additional 225562 2 $0.00 $0.00 push (10196) Nurse/IV/IM/Infusions IVP initial (78360) 888874 1 $0.00 $0.00 Grand $0.00 Total Providers Sandip Ag M.D. Chief Complaint 1 of 2 Superbill ABDOMINAL PAIN and FLANK PAIN. Principal Diagnosis Acute generalized abdominal pain of undetermined cause. ICD-10 Codes R10.84: Generalized abdominal pain 2 of 2 Normal [facility] ED VISIT SUMMARYon ED VISIT SUMMARY Visit Overview Visit Overview [facility] [address] [place] [id number] 08/05/2024 Patient: NOEMI ALONSO Sex: Female : 1965 Age: 59y [...] Vitals RR 09:59 08/05/24 18 RR 13:18 08/05/24 O2 Sat 09:59 08/05/24 96% O2 Sat [...] PAIN OF UNDETERMINED CAUSE 3 of 3 Normal [facility] ED VITALS FLOW SHEETon 08-08 ED VITALS FLOW SHEET Vitals [place]ital [place] [address] [phone] 08/05/2024 Patient: NOEMI ALONSO Sex: Female : 1965 Age: 59y Measurements Wt: 72.6 kg, Ht/Rafy: 61.0 in, BMI: 30.23 Measured Time BP MAP HR RR O2Sat ETCO2 Temp Pain GCS RTS 13:18 08/05/2024 152/85 93 53 13:18 08/05/2024 152/85 107 52 16 96% 0 09:59 08/05/2024 168/73 105 57 18 96% 98.6 F 7 1 of 1 Normal [facility] CBC + DIFFon 08-07-2024 Baso # 0.02 x10EE3/UL Normal 0.00 - 0.10 [facility] Comment on above: Performed By: #### 2 69137 #### [facility],[address] [place] [address] Basophils/100 WBC (Bld) 0.2 % Normal 0.0 - 2.0 [facility] Comment on above: Performed By: #### 2 61057 #### [facility],[address] [place] [address] 63362 CBC + DIFF Normal [facility] Comment on above: Result Comment: CBC- COMPLETE BLOOD COUNT Performed By: #### 2 55498 #### [facility],[address] [place] [address] 05798 EO # 0.04 x10EE3/UL Normal 0.00 - 0.50 [facility] Comment on above: Performed By: #### 2 66121 #### [facility],[address] [place] [address] 16171 Eosinophils/100 WBC (Bld) 0.3 % Normal 0.0 - 7.0 [facility] Comment on above: Performed By: #### 2 59267 #### [facility],[address] [place] [address] 99273 Erythrocyte distribution width (RBC) [Ratio] 13.4 % Normal 12.0 - 15.6 [facility] Comment on above: Performed By: #### 2 76420 #### [facility],[address] [place], [place] [phone] Hematocrit (Bld) [Volume fraction] 48.1 % High 34.0 - 46.0 [facility] Comment on above: Performed By: #### 2 58972 #### [facility],[address] [place] [address] 15249 Hemoglobin (Bld) [Mass/Vol] 16.5 g/dL High 12.0 - 16.0 [facility] Comment on above: Performed By: #### 2 12681 #### [facility],[address] [place] [address] 30571 Lymph # 1.78 x10EE3/UL Normal 0.80 - 2.80 [facility] Comment on above: Performed By: #### 2 09375 #### [facility],[address] [place] [address]241 Lymphocytes/100 WBC (Bld) 14.5 % Low 20.0 - 45.0 [facility] Comment on above: Performed By: #### 2 62339 #### [facility],[address] [place] [address] 76086 MANUAL DIFF N/A Normal [facility] Comment on above: Performed By: #### 2 97447 #### [facility],[address] [place] [address] 65420 MCH (RBC) [Entitic mass] 32 pg Normal 27 - 33 [facility] Comment on above: Performed By: #### 2 71323 #### [facility],[address] [place] [address] 56021 MCHC 34 X10 3 Normal 32 - 36 [facility] Comment on above: Performed By: #### 2 63831 #### [facility],[address] [place] [address] 60882 MCV (RBC) [Entitic vol] 93 fL Normal 80 - 99 [facility] Comment on above: Performed By: #### 2 99609 #### [facility],[address] [place] [address] 52684 Warren # 0.40 x10EE3/UL Normal 0.20 - 1.00 [facility] Comment on above: Performed By: #### 2 81047 #### [facility],[address] [place] [address] 11078 MONOS % 3.3 % Normal 0.0 - 10.0 [facility] Comment on above: Performed By: #### 2 88037 #### [facility],[address] [place] [address] 46317 Morphology Chip (Bld) [Interp] N/A Normal [facility] Comment on above: Performed By: #### 2 54153 #### [facility],[address] [place] [address] 02075 Neut # 10.01 x10EE3/UL High 1.50 - 7.10 [facility] Comment on above: Performed By: #### 2 36859 #### [facility],[address] [place] [address] 95862 Neutrophils/100 WBC (Bld) 81.7 % High 46.0 - 76.0 [facility] Comment on above: Performed By: #### 2 98248 #### [facility],[address] [place] [address] 53187 PLATELET 299 x10EE3/UL Normal 150 - 450 [facility] Comment on above: Performed By: #### 2 46717 #### [facility],[address] [place] [address] 27997 Platelet mean volume (Bld) [Entitic vol] 8.3 fL Normal 6.6 - 10.5 [facility] Comment on above: Result Comment: AUTO MATED DIFFERENTIAL Performed By: #### 2 41691 #### [facility],[address] [place] [address] 11389 RBC 5.17 x 10EE6/UL Normal 4.10 - 5.30 [facility] Comment on above: Performed By: #### 2 17381 #### [facility],[address] [place] [address] 60910 WBC 12.3 x 10EE3/UL High 4.5 - 10.8 [facility] Comment on above: Performed By: #### 2 11088 #### [facility],[address] [place] [address] 30254 CMP with eGFRon 08-07-2024 AGE 59 years Normal [facility] Comment on above: Performed By: #### 2 35839 #### [facility],[address] [place] [address] 22149 Albumin [Mass/Vol] 3.9 g/dL Normal 3.4 - 5.0 [facility] Comment on above: Performed By: #### 2 70264 #### [facility],[address] [place] [address] 95903 Albumin/Globulin [Mass ratio] 1.0 {ratio} Normal 0.9 - 1.6 [facility] Comment on above: Performed By: #### 2 47604 #### [facility],[address] [place] [address] 76948 ALK PHOS 76 U/L Normal 46 - 116 [facility] Comment on above: Performed By: #### 2 78760 #### [facility],[address] [place] [address] 45936 ALT [Catalytic activity/Vol] 82 U/L High 16 - 63 [facility] Comment on above: Performed By: #### 2 53156 #### [facility],[address] [place] [address] 88192 Anion gap [Moles/Vol] 15 mmol/L Normal 10 - 20 [facility] Comment on above: Performed By: #### 2 46667 #### [facility],[address] [place] [address] 70188 AST [Catalytic activity/Vol] 46 U/L High 13 - 39 [facility] Comment on above: Performed By: #### 2 85353 #### [facility],[address] [place] [address] 29791 B/C RATIO 15 ratio Normal 0 - 30 [facility] Comment on above: Performed By: #### 2 48538 #### [facility],[address] [place] [address] 21279 Bilirubin [Mass/Vol] 1.1 mg/dL High 0.2 - 1.0 [facility] Comment on above: Performed By: #### 2 84182 #### [facility],[address] [place] [address] 33310 Calcium [Mass/Vol] 9.3 mg/dL Normal 8.5 - 10.1 [facility] Comment on above: Performed By: #### 2 67388 #### [facility],[address] [place] [address] 92944 Chloride [Moles/Vol] 110 mmol/L High 98 - 107 [facility] Comment on above: Performed By: #### 2 09247 #### [facility],[address] [place] [address] 74242 CMP with eGFR Normal [facility] Comment on above: Result Comment: COMP REHENSIVE METABOLIC PANEL Performed By: #### 2 69906 #### [facility],[address] [place] [address] 17332 CO2 [Moles/Vol] 28.0 mmol/L Normal 21.0 - 32.0 [facility] Comment on above: Performed By: #### 2 69844 #### [facility],[address] [place] [address] 04294 Creatinine [Mass/Vol] 0.68 mg/dL Normal 0.55 - 1.02 [facility] Comment on above: Performed By: #### 2 80483 #### [facility],[address] [place], [place] [address] GFR/1.73 sq M.predicted among non-blacks MDRD (S/P/Bld) [Vol rate/Area] mL/min/{1.73_m2} Normal 60 - 999 [facility] Comment on above: Performed By: #### 2 02224 #### [facility],[address] [place] [address] Result Comment: ACCO RDING TO THE NATIONAL KIDNEY DISEASE EDUCATION PROGRAM(NKDE), A NORMAL eGFR IS A VALUE GREATER THAN OR EQUAL TO 60 ML/MIN/1.73 SQ METERS. CHRONIC KIDNEY DISEASE: <60mL/MIN/1.73 SQ METERS KIDNEY FAILURE: <15mL/MIN/1.73 SQ METERS THIS TEST SHOULD ONLY BE USED FOR PATIENTS 18 YEARS OF AGE AND OLDER. Globulin (S) [Mass/Vol] 3.8 g/dL Normal 1.5 - 3.8 [facility] Comment on above: Performed By: #### 2 49222 #### [facility],[address] [place] [address] 88576 Glucose [Mass/Vol] 116 mg/dL High 74 - 106 [facility] Comment on above: Performed By: #### 2 36840 #### [facility],[address] [place] [address] 63208 Potassium [Moles/Vol] 3.8 mmol/L Normal 3.5 - 5.1 [facility] Comment on above: Performed By: #### 2 83595 #### [facility],[address] [place] [address] 71792 Protein [Mass/Vol] 7.7 g/dL Normal 6.4 - 8.2 [facility] Comment on above: Performed By: #### 2 65577 #### [facility],[address] [place], [place] [address] Sodium [Moles/Vol] 149 mmol/L High 136 - 145 [facility] Comment on above: Performed By: #### 2 95338 #### [facility],[address] [place], [place] [id number] Urea nitrogen [Mass/Vol] 10 mg/dL Normal 7 - 18 [facility] Comment on above: Performed By: #### 2 37909 #### [facility],[address] [place], [place] [phone] CT ABDOMEN/PELVIS Won 2024 CT ABDOMEN/PELVIS [place] [address] Patient: NOEMI ALONSO Phone#: : [phone] Age: 59 Gender: F Pt. Type: ER Account: [id number] Location: [facility] Ordering: DR. JET MELLO Exam Date: 08/07/2024/12:24 Family Phys: OSVALDO SUE Charge Code: [id number] Physician: [place] Order #: [id number] Dose#: 20.00 PROCEDURE: CT ABDOMEN/PELVIS WITH CONTRAST COMPARISON: [facility], CT, ABDOMEN/PELVIS W CON, 10/07/2021, 12:19. INDICATIONS: [...] Report - Page 2 of 2 Patient: NOEMI ALONSO Phone#: : [phone] Age: 59 Gender: F Pt. Type: ER Account: [id number] Location: [facility] Ordering: DR. JET MELLO Exam Date: 08/07/2024/12:24 Family Phys: OSVALDO SUE Charge Code: [id number] Physician: [place] Order #: [id number] Dose#: 20.00 LUNG BASES: Normal. No visible [...] Serenity Krause MD on 08/07/2024 at 13:16 Normal [facility] LIPASEon 08-07-2024 Lipase [Catalytic activity/Vol] 39.0 U/L Normal 15.0 - 78.0 [facility] Comment on above: Result Comment: *PLE ASE NOTE THAT RANGES FOR LIPASE HAVE CHANGED OF 04/01/23 DUE TO AN ASSAY UPDATE BY THE SATELLITE DISH REPAIRER.THE NEW ASSAY RANGE IS 6-250 U/L, WITH A REFERENCE RANGE OF 16-77 U/L. Performed By: #### 2 83147 #### [facility],[address] [place] [address] URINALYSISon 08-07-2024 Amorphous NONE Normal [facility] Comment on above: Performed By: #### 2 15199 ####[facility],[address] [place] [address] Bacteria NONE Normal [facility] Comment on above: Performed By: #### 2 25603 ####[facility],[address] [place] [address] Bilirubin Ql (U) Negative Normal NORMAL: NEGATIVE [facility] Comment on above: Performed By: #### 2 86608 ####[facility],[address] [place] [address] Casts NONE Normal [facility] Comment on above: Performed By: #### 2 92192 ####[facility],[address] [place] [address] Clarity (U) clear Normal NORMAL: CLEAR [facility] Comment on above: Performed By: #### 2 46911 ####[facility],[address] [place], [place] [phone] Color (U) yellow Normal NORMAL: YELLOW [facility] Comment on above: Performed By: #### 2 65467 ####[facility],[address] [place] [address] 98313 Crystals LM Nom (Urine sed) NONE Normal [facility] Comment on above: Performed By: #### 2 38655 ####[facility],[address] [place] [address] 88179 Epi Cells FEW Normal [facility] Comment on above: Performed By: #### 2 64115 ####[facility],[address] [place] [address] 85491 Glucose Ql (U) NORM Normal NORMAL: NORMAL [facility] Comment on above: Performed By: #### 2 02523 ####[facility],[address] [place], [place] [phone] Hemoglobin Ql (U) 10 Abnormal NORMAL: NEGATIVE [facility] Comment on above: Performed By: #### 2 11091 ####[facility],[address] [place] [address] 30037 Ketone 15 Abnormal NORMAL: NEGATIVE [facility] Comment on above: Performed By: #### 2 04174 ####[facility],[address] [place] [address] 36234 Leukocytes Negative Normal NORMAL: NEGATIVE [facility] Comment on above: Performed By: #### 2 64761 ####[facility],[address] [place] [address] Mucous NONE Normal [facility] Comment on above: Performed By: #### 2 38700 ####[facility],[address] [place] [address] 21045 Nitrite Ql (U) Negative Normal NORMAL: NEGATIVE [facility] Comment on above: Performed By: #### 2 84973 ####[facility],[address] [place] [address] 50377 pH (U) 6.5 [pH] Normal NORMAL: 5.0-8.0 [facility] Comment on above: Performed By: #### 2 27104 ####[facility],[address] [place] [address] 19811 Protein Ql (U) 30 Abnormal NORMAL: NEGATIVE [facility] Comment on above: Performed By: #### 2 57326 ####[facility],[address] [place] [address] Rbc 0-5 Normal 0-3/hpf [facility] Comment on above: Performed By: #### 2 41437 ####[facility],[address] [place] [address] Sp [place] 1.010 Normal NORMAL: 1.010-1.030 [facility] Comment on above: Performed By: #### 2 01368 ####[facility],[address] [place] [address] Specimen Type R Normal [facility] Comment on above: Performed By: #### 2 87748 ####[facility],[address] [place] [address] Urinalysis dipstick W Reflex Microscopic panel (U) SEE BELOW Normal [facility] Comment on above: Result Comment: MICR OSCOPIC Performed By: #### 2 03609 ####[facility],[address] [place] [address] Urobilinog 4 Abnormal NORMAL: NORMAL [facility] Comment on above: Performed By: #### 2 02017 ####[facility],[address] [place] [address] Wbc NONE Normal 0-5/hpf [facility] Comment on above: Performed By: #### 2 15088 ####[facility],[address] [place] [address] Yeast NONE Normal [facility] Comment on above: Performed By: #### 2 36504 ####[facility],[address] [place] [address] C-REACTIVE PROTEINon 025 CRP 0.31 mg/dl Normal 0.00 - 0.90 [facility] Comment on above: Performed By: #### 2 90870 #### [facility],[address] [place] [address] CBC + DIFFon 08-05-2024 Baso # 0.02 x10EE3/UL Normal 0.00 - 0.10 [facility] Comment on above: Performed By: #### 2 12344 ####[facility],[address] [place], [place] [address] Basophils/100 WBC (Bld) 0.2 % Normal 0.0 - 2.0 [facility] Comment on above: Performed By: #### 2 55182 ####[facility],[address] [place] [address] CBC + DIFF Normal [facility] Comment on above: Result Comment: CBC- COMPLETE BLOOD COUNT Performed By: #### 2 08525 ####[facility],[address] [place] [address] EO # 0.26 x10EE3/UL Normal 0.00 - 0.50 [facility] Comment on above: Performed By: #### 2 01023 ####[place] [address] Eosinophils/100 WBC (Bld) 3.4 % Normal 0.0 - 7.0 [facility] Comment on above: Performed By: #### 2 34444 ####[place] [address] Erythrocyte distribution width (RBC) [Ratio] 13.2 % Normal 12.0 - 15.6 [facility] Comment on above: Performed By: #### 2 66944 ####[facility],[address] [place] [address] Hematocrit (Bld) [Volume fraction] 43.3 % Normal 34.0 - 46.0 [facility] Comment on above: Performed By: #### 2 65833 ####[facility],[address] [place] [address] Hemoglobin (Bld) [Mass/Vol] 15.0 g/dL Normal 12.0 - 16.0 [facility] Comment on above: Performed By: #### 2 51813 ####[facility],[address] [place] [address] Lymph # 2.80 x10EE3/UL Normal 0.80 - 2.80 [facility] Comment on above: Performed By: #### 2 60290 ####[facility],[address] [place] [address] Lymphocytes/100 WBC (Bld) 36.7 % Normal 20.0 - 45.0 [facility] Comment on above: Performed By: #### 2 41932 ####[facility],[address] [place] [address] MANUAL DIFF N/A Normal [facility] Comment on above: Performed By: #### 2 84265 ####[facility],[address] [place] [address] MCH (RBC) [Entitic mass] 33 pg Normal 27 - 33 [facility] Comment on above: Performed By: #### 2 87243 ####[facility],[address] [place] [address] MCHC 35 X10 3 Normal 32 - 36 [facility] Comment on above: Performed By: #### 2 42443 ####[facility],[address] [place] [address] MCV (RBC) [Entitic vol] 94 fL Normal 80 - 99 [facility] Comment on above: Performed By: #### 2 90737 ####[facility],[address] [place] [address] Warren # 0.42 x10EE3/UL Normal 0.20 - 1.00 [facility] Comment on above: Performed By: #### 2 16067 ####[facility],[address] [place] [address] MONOS % 5.5 % Normal 0.0 - 10.0 [facility] Comment on above: Performed By: #### 2 69543 ####[facility],[address] [place] [address] Morphology Chip (Bld) [Interp] N/A Normal [facility] Comment on above: Performed By: #### 2 18277 ####[facility],[address] [place], [place] [address] Neut # 4.14 x10EE3/UL Normal 1.50 - 7.10 [facility] Comment on above: Performed By: #### 2 48005 ####[facility],[address] [place] [address] Neutrophils/100 WBC (Bld) 54.3 % Normal 46.0 - 76.0 [facility] Comment on above: Performed By: #### 2 73750 ####[facility],[address] [place] [address] PLATELET 256 x10EE3/UL Normal 150 - 450 [facility] Comment on above: Performed By: #### 2 06773 ####[facility],[address] [place] [address] Platelet mean volume (Bld) [Entitic vol] 8.3 fL Normal 6.6 - 10.5 [facility] Comment on above: Result Comment: AUTO MATED DIFFERENTIAL Performed By: #### 2 67507 ####[place] [address] RBC 4.62 x 10EE6/UL Normal 4.10 - 5.30 [facility] Comment on above: Performed By: #### 2 31576 ####[facility],[address] [place] [address] WBC 7.6 x 10EE3/UL Normal 4.5 - 10.8 [facility] Comment on above: Performed By: #### 2 50186 ####[facility],[address] [place], [place] [id number] CMP with eGFRon 08-05-2024 AGE 59 years Normal [facility] Comment on above: Performed By: #### 2 06228 #### [place] [address],[place] [address] Albumin [Mass/Vol] 4.0 g/dL Normal 3.4 - 5.0 [facility] Comment on above: Performed By: #### 2 41859 #### [facility],[address] [place] [address] 24923 Albumin/Globulin [Mass ratio] 1.1 {ratio} Normal 0.9 - 1.6 [facility] Comment on above: Performed By: #### 2 18581 #### [facility],[address] [place] [address] 34249 ALK PHOS 83 U/L Normal 46 - 116 [facility] Comment on above: Performed By: #### 2 05851 #### [facility],[address] [place] [address] 83696 ALT [Catalytic activity/Vol] 94 U/L High 16 - 63 [facility] Comment on above: Performed By: #### 2 96742 #### [facility],[address] [place] [address] 83209 Anion gap [Moles/Vol] 9 mmol/L Low 10 - 20 [facility] Comment on above: Performed By: #### 2 91182 #### [facility],[address] [place] [address] 36332 AST [Catalytic activity/Vol] 70 U/L High 13 - 39 [facility] Comment on above: Performed By: #### 2 87967 #### [facility],[address] [place] [address] 09155 B/C RATIO 10 ratio Normal 0 - 30 [facility] Comment on above: Performed By: #### 2 59291 #### [facility],[address] [place] [address] 46405 Bilirubin [Mass/Vol] 1.6 mg/dL High 0.2 - 1.0 [facility] Comment on above: Performed By: #### 2 24768 #### [facility],[address] [place] [address] 78443 Calcium [Mass/Vol] 9.3 mg/dL Normal 8.5 - 10.1 [facility] Comment on above: Performed By: #### 2 35341 #### [facility],[address] [place] [address] 38038 Chloride [Moles/Vol] 108 mmol/L High 98 - 107 [facility] Comment on above: Performed By: #### 2 31324 #### [facility],[address] [place] [address] 05153 CMP with eGFR Normal [facility] Comment on above: Result Comment: COMP REHENSIVE METABOLIC PANEL Performed By: #### 2 38103 #### [facility],[address] [place] [address] 42555 CO2 [Moles/Vol] 31.4 mmol/L Normal 21.0 - 32.0 [facility] Comment on above: Performed By: #### 2 97627 #### [facility],[address] [place] [address] 00856 Creatinine [Mass/Vol] 0.98 mg/dL Normal 0.55 - 1.02 [facility] Comment on above: Performed By: #### 2 39346 #### [facility],[address] [place] [address] 79111 eGFR 58 ML/MINUTE Low 60 - 999 [facility] Comment on above: Performed By: #### 2 22457 #### [facility],[address] [place] [address] 24691 GFR/1.73 sq M.predicted among non-blacks MDRD (S/P/Bld) [Vol rate/Area] mL/min/{1.73_m2} Normal 60 - 999 [facility] Comment on above: Result Comment: ACCO RDING TO THE NATIONAL KIDNEY DISEASE EDUCATION PROGRAM(NKDE), A NORMAL eGFR IS A VALUE GREATER THAN OR EQUAL TO 60 ML/MIN/1.73 SQ METERS. CHRONIC KIDNEY DISEASE: <60mL/MIN/1.73 SQ METERS KIDNEY FAILURE: <15mL/MIN/1.73 SQ METERS THIS TEST SHOULD ONLY BE USED FOR PATIENTS 18 YEARS OF AGE AND OLDER. Performed By: #### 2 92050 #### [facility],[address] [place] [address] 65376 Globulin (S) [Mass/Vol] 3.6 g/dL Normal 1.5 - 3.8 [facility] Comment on above: Performed By: #### 2 80619 #### [facility],[address] [place] [address] 40366 Glucose [Mass/Vol] 120 mg/dL High 74 - 106 [facility] Comment on above: Performed By: #### 2 31679 #### [facility],[address] [place] [address] 42005 Potassium [Moles/Vol] 4.0 mmol/L Normal 3.5 - 5.1 [facility] Comment on above: Performed By: #### 2 89740 #### [facility],[address] [place] [address] 62884 Protein [Mass/Vol] 7.6 g/dL Normal 6.4 - 8.2 [facility] Comment on above: Performed By: #### 2 40482 #### [facility],[address] [place] [address] 14189 Sodium [Moles/Vol] 144 mmol/L Normal 136 - 145 [facility] Comment on above: Performed By: #### 2 00430 #### [facility],[address] [place] [address] 47263 Urea nitrogen [Mass/Vol] 10 mg/dL Normal 7 - 18 [facility] Comment on above: Performed By: #### 2 09201 #### [facility],[address] [place] [address] KUB (KIDNEY STONE PROTOCO L)on 08-05-2024 CT KUB (KIDNEY STONE PROTOCOL) [address] [address] Patient: NOEMI ALONSO Phone#: : [phone] Age: 59 Gender: F Pt. Type: ER Account: [id number] Location: [facility] Ordering: SANDIP AG Exam Date: 08/05/2024/11:45 Family Phys: OSVALDO SUE Charge Code: [id number] Physician: [place] Order #: [id number] Dose#: 10.80 mGy PROCEDURE: CT ABDOMEN AND PELVIS WITHOUT CONTRAST COMPARISON: [facility], CT, KUB W/O CON, 02/14/2019, 15:48. INDICATIONS: [...] Report - Page 2 of 2 Patient: NOEMI ALONSO Phone#: : [phone] Age: 59 Gender: F Pt. Type: ER Account: [id number] Location: 052 Ordering: SANDIP AG Exam Date: 08/05/2024/11:45 Family Phys: OSVALDO SUE Charge Code: [id number] Physician: [place] Order #: [id number] Dose#: 10.80 mGy PELVIC ORGANS: Uterus is [...] adnexal cysts, incompletely characterized by CT. Recommend follow-up pelvic ultrasound for further characterization. Dictated by: Serenity Krause MD on 08/05/2024 at 13:33 Approved by: Serenity Krause MD on 08/05/2024 at 13:46 Normal [facility] LIPASEon 08-05-2024 Lipase [Catalytic activity/Vol] 23.0 U/L Normal 15.0 - 78.0 [facility] Comment on above: Result Comment: *PLE ASE NOTE THAT RANGES FOR LIPASE HAVE CHANGED OF 04/01/23 DUE TO AN ASSAY UPDATE BY THE SATELLITE DISH REPAIRER.THE NEW ASSAY RANGE IS 6-250 U/L, WITH A REFERENCE RANGE OF 16-77 U/L. Performed By: #### 2 01645 #### [facility],[address] [place] [address] URINALYSISon 08-05-2024 Bilirubin Ql (U) Negative Normal NORMAL: NEGATIVE [facility] Comment on above: Performed By: #### 2 36332 ####[facility],[address] [place] [address] Clarity (U) clear Normal NORMAL: CLEAR [facility] Comment on above: Performed By: #### 2 51520 ####[facility],[address] [place], [place] [address] Color (U) mal Normal NORMAL: YELLOW [facility] Comment on above: Performed By: #### 2 62225 ####[facility],[address] [place] [address] 39596 Glucose Ql (U) NORM Normal NORMAL: NORMAL [facility] Comment on above: Performed By: #### 2 85392 ####[facility],[address] [place] [address] 31050 Hemoglobin Ql (U) Negative Normal NORMAL: NEGATIVE [facility] Comment on above: Performed By: #### 2 75049 ####[facility],[address] [place], [place] [address] Ketone 5 Abnormal NORMAL: NEGATIVE [facility] Comment on above: Performed By: #### 2 15340 ####[facility],[address] [place] [address] 46298 Leukocytes Negative Normal NORMAL: NEGATIVE [facility] Comment on above: Performed By: #### 2 07190 ####[facility],[address] [place] [address] 34676 Nitrite Ql (U) Negative Normal NORMAL: NEGATIVE [facility] Comment on above: Performed By: #### 2 60407 ####[facility],[address] [place] [address] 58252 pH (U) 6 [pH] Normal NORMAL: 5.0-8.0 [facility] Comment on above: Performed By: #### 2 68774 ####[facility],[address] [place] [address] 28197 Protein Ql (U) 15 Abnormal NORMAL: NEGATIVE [facility] Comment on above: Performed By: #### 2 03134 ####[facility],[address] [place] [address] 18198 Sp [place] 1.020 Normal NORMAL: 1.010-1.030 [facility] Comment on above: Performed By: #### 2 56386 ####[facility],[address] [place] [address] Specimen Type R Normal [facility] Comment on above: Performed By: #### 2 04748 ####[facility],[address] [place] [address] Urinalysis dipstick W Reflex Microscopic panel (U) NOT INDICATED Normal [facility] Comment on above: Performed By: #### 2 17681 ####[facility],[address] [place] [address] Urobilinog NORM Normal NORMAL: NORMAL [facility] Comment on above: Performed By: #### 2 74507 ####[facility],[address] [place] [address] CBC + DIFFon 06-21-2024 Baso # 0.03 x10EE3/UL Normal 0.00 - 0.10 [facility] Comment on above: Performed By: #### 2 57595 #### [facility],[address] [place] [address] Basophils/100 WBC (Bld) 0.3 % Normal 0.0 - 2.0 [facility] Comment on above: Performed By: #### 2 32808 #### [facility],[address] [place] [address] CBC + DIFF Normal [facility] Comment on above: Result Comment: CBC- COMPLETE BLOOD COUNT Performed By: #### 2 36501 #### [facility],[address] [place] [address] EO # 0.25 x10EE3/UL Normal 0.00 - 0.50 [facility] Comment on above: Performed By: #### 2 55871 #### [facility],[address] [place] [address] Eosinophils/100 WBC (Bld) 2.2 % Normal 0.0 - 7.0 [facility] Comment on above: Performed By: #### 2 99649 #### [facility],[address] [place], [place] [address] Erythrocyte distribution width (RBC) [Ratio] 13.1 % Normal 12.0 - 15.6 [facility] Comment on above: Performed By: #### 2 84888 #### [facility],[address] [place], [place] [address] Hematocrit (Bld) [Volume fraction] 50.0 % High 34.0 - 46.0 [facility] Comment on above: Performed By: #### 2 66524 #### [facility],[address] [place] [address] Hemoglobin (Bld) [Mass/Vol] 16.6 g/dL High 12.0 - 16.0 [facility] Comment on above: Performed By: #### 2 02086 #### [facility],[address] [place] [address] Lymph # 3.89 x10EE3/UL High 0.80 - 2.80 [facility] Comment on above: Performed By: #### 2 22689 #### [facility],[address] [place], [place] [address] Lymphocytes/100 WBC (Bld) 34.7 % Normal 20.0 - 45.0 [facility] Comment on above: Performed By: #### 2 85534 #### [facility],[address] [place], [place] [id number] MANUAL DIFF N/A Normal [facility] Comment on above: Performed By: #### 2 52098 #### [facility],[address] [place], [place] [address] MCH (RBC) [Entitic mass] 31 pg Normal 27 - 33 [facility] Comment on above: Performed By: #### 2 80322 #### [facility],[address] [place] [address] 82762 MCHC 33 X10 3 Normal 32 - 36 [facility] Comment on above: Performed By: #### 2 08605 #### [facility],[address] [place] [address] 78188 MCV (RBC) [Entitic vol] 94 fL Normal 80 - 99 [facility] Comment on above: Performed By: #### 2 49718 #### [facility],[address] [place] [address] 23283 Warren # 0.49 x10EE3/UL Normal 0.20 - 1.00 [facility] Comment on above: Performed By: #### 2 93659 #### [facility],[address] [place] [address] 33203 MONOS % 4.4 % Normal 0.0 - 10.0 [facility] Comment on above: Performed By: #### 2 84381 #### [facility],[address] [place] [address] 49099 Morphology Chip (Bld) [Interp] N/A Normal [facility] Comment on above: Performed By: #### 2 41178 #### [facility],[address] [place] [address] 05507 Neut # 6.55 x10EE3/UL Normal 1.50 - 7.10 [facility] Comment on above: Performed By: #### 2 18997 #### [facility],[address] [place] [address] 15256 Neutrophils/100 WBC (Bld) 58.4 % Normal 46.0 - 76.0 [facility] Comment on above: Performed By: #### 2 93723 #### [facility],[address] [place] [address] 22881 PLATELET 349 x10EE3/UL Normal 150 - 450 [facility] Comment on above: Performed By: #### 2 84656 #### [facility],[address] [place] [address] 50772 Platelet mean volume (Bld) [Entitic vol] 8.0 fL Normal 6.6 - 10.5 [facility] Comment on above: Result Comment: AUTO MATED DIFFERENTIAL Performed By: #### 2 65632 #### [facility],[address] [place] [address] 72357 RBC 5.34 x 10EE6/UL High 4.10 - 5.30 [facility] Comment on above: Performed By: #### 2 86126 #### [facility],[address] [place] [address] 60301 WBC 11.2 x 10EE3/UL High 4.5 - 10.8 [facility] Comment on above: Performed By: #### 2 80320 #### [facility],[address] [place] [address] 89064 CHEST 1 VIEWon 06-21-2024 CHEST 1 VIEW [place] [address] Patient: NOEMI ALONSO Phone#: : 1965 Age: 59 Gender: F Pt. Type: ER Account: [id number] Location: [facility] Ordering: RANDY QUILES Exam Date: 06/21/2024/11:08 Family Phys: OSVALDO SUE Charge Code: [id number] Physician: [place] Order #: [id number] Dose#: PROCEDURE: X-RAY CHEST 1 VIEW COMPARISON: [facility], XR, CHEST 2 VIEWS, 06/01/2023, 11:26. INDICATIONS: [...] Serenity Krause MD on 06/21/2024 at 11:25 Normal [facility] CMP with eGFRon 06-21-2024 AGE 59 years Normal [facility] Comment on above: Performed By: #### 2 42219 #### [facility],[address] [place] [address] 62693 Albumin [Mass/Vol] 4.4 g/dL Normal 3.4 - 5.0 [facility] Comment on above: Performed By: #### 2 93179 #### [facility],[address] [place] [address] 63762 Albumin/Globulin [Mass ratio] 1.1 {ratio} Normal 0.9 - 1.6 [facility] Comment on above: Performed By: #### 2 44735 #### [facility],[address] [place] [address] 42248 ALK PHOS 99 U/L Normal 46 - 116 [facility] Comment on above: Performed By: #### 2 10776 #### [facility],[address] [place] [address] 48978 ALT [Catalytic activity/Vol] 120 U/L High 16 - 63 [facility] Comment on above: Performed By: #### 2 92576 #### [facility],[address] [place] [address] 90822 Anion gap [Moles/Vol] 13 mmol/L Normal 10 - 20 [facility] Comment on above: Performed By: #### 2 [id number] #### [facility],[address] [place] [address] 05354 AST [Catalytic activity/Vol] 101 U/L High 13 - 39 [facility] Comment on above: Performed By: #### 2 45298 #### [facility],[address] [place] [address] 17896 B/C RATIO 13 ratio Normal 0 - 30 [facility] Comment on above: Performed By: #### 2 49004 #### [facility],[address] [place] [address] 48835 Bilirubin [Mass/Vol] 1.5 mg/dL High 0.2 - 1.0 [facility] Comment on above: Performed By: #### 2 06833 #### [facility],[address] [place] [address] 87578 Calcium [Mass/Vol] 9.2 mg/dL Normal 8.5 - 10.1 [facility] Comment on above: Performed By: #### 2 61817 #### [facility],[address] [place] [address] 30701 Chloride [Moles/Vol] 104 mmol/L Normal 98 - 107 [facility] Comment on above: Performed By: #### 2 46982 #### [facility],[address] [place], [place] [id number] CMP with eGFR Normal [facility] Comment on above: Result Comment: COMP REHENSIVE METABOLIC PANEL Performed By: #### 2 34126 #### [facility],[address] [place] [address] 85615 CO2 [Moles/Vol] 30.4 mmol/L Normal 21.0 - 32.0 [facility] Comment on above: Performed By: #### 2 46347 #### [facility],[address] [place] [address] 37521 Creatinine [Mass/Vol] 0.87 mg/dL Normal 0.55 - 1.02 [facility] Comment on above: Performed By: #### 2 54493 #### [facility],[address] [place] [address] 15078 GFR/1.73 sq M.predicted among non-blacks MDRD (S/P/Bld) [Vol rate/Area] mL/min/{1.73_m2} Normal 60 - 999 [facility] Comment on above: Performed By: #### 2 79782 #### [facility],[address] [place], [place] [id number] Result Comment: ACCO RDING TO THE NATIONAL KIDNEY DISEASE EDUCATION PROGRAM(NKDE), A NORMAL eGFR IS A VALUE GREATER THAN OR EQUAL TO 60 ML/MIN/1.73 SQ METERS. CHRONIC KIDNEY DISEASE: <60mL/MIN/1.73 SQ METERS KIDNEY FAILURE: <15mL/MIN/1.73 SQ METERS THIS TEST SHOULD ONLY BE USED FOR PATIENTS 18 YEARS OF AGE AND OLDER. Globulin (S) [Mass/Vol] 4.0 g/dL High 1.5 - 3.8 [facility] Comment on above: Performed By: #### 2 68311 #### [facility],[address] [place] [address] 75582 Glucose [Mass/Vol] 123 mg/dL High 74 - 106 [facility] Comment on above: Performed By: #### 2 86195 #### [facility],[address] [place] [address] 56523 Potassium [Moles/Vol] 3.6 mmol/L Normal 3.5 - 5.1 [facility] Comment on above: Performed By: #### 2 71048 #### [facility],[address] [place] [address] 82727 Protein [Mass/Vol] 8.4 g/dL High 6.4 - 8.2 [facility] Comment on above: Performed By: #### 2 21414 #### [facility],[address] [place] [address] 51993 Sodium [Moles/Vol] 144 mmol/L Normal 136 - 145 [facility] Comment on above: Performed By: #### 2 31969 #### [facility],[address] [place] [address] 88939 Urea nitrogen [Mass/Vol] 11 mg/dL Normal 7 - 18 [facility] Comment on above: Performed By: #### 2 50564 #### [facility],[address] [place] [address] 45547 CORONAVIRUS (SARS) ANTIGEN T ESTon 06-21-2024 EXTERNAL QC DONE? YES Normal [facility] Comment on above: Performed By: #### 2 41838 #### [facility],[address] [place] [address] 17829 INTERNAL CONTROL PASS Normal [facility] Comment on above: Performed By: #### 2 59942 #### [facility],[address] [facility] [address] SARS ANTIGEN Negative Normal NORMAL: NEGATIVE [facility] Comment on above: Performed By: #### 2 89131 #### [facility],[address] [place] [address],[facility] [address] SEND TO IC? NO Normal [facility] Comment on above: Result Comment: SARS -CoV-2 THIS TEST IS BEING USED UNDER THE FDA EUA PROCEDURE. THIS ASSAY HAS BEEN VALIDATED AT [facility] FOR USE WITH NASAL AND NASOPHARYNGEAL SWAB [...] WITH PUBLIC HEALTH AUTHORITIES. Performed By: #### 2 68244 #### [facility],[address] [place] [address]709 ED MED ADMINISTRATION DETAIL on 06-21-2024 ED MED ADMINISTRATION DETAIL Silk Snapper Medication Administration Record [address] [address] [id number] 06/21/2024 Patient: NOEMI ALONSO Sex: Female : 1965 Age: 59y MEASUREMENTS: Wt: 72.6 kg, Ht/Rafy: 62.0 in, BMI: 29.26 ALLERGIES: No known drug allergies Medication Ordered Medication Administration Date/Time 1 of 1 Normal [facility] ED NURSES CLINICAL NOTEon ED NURSES CLINICAL NOTE Nurse Narrative Nurse Clinical Narrative [address] [address] [id number] 06/21/2024 Patient: NOEMI ALONSO Sex: Female : 1965 Age: 59y Primary Insurance: [facility] Policy Number: [id number] Subscriber: Other Disposition: Discharge to Home Disposition [...] negative. No possible sources of infection. -- 11:03 06/21/24 EDT Ellis Becker R.N. 11:06/21/24. BP: 167/80 MAP: 109. [...] 1 capsule once a day. -- 11:06/21/24 Jose Becker R.N. omeprazole 40 mg capsule,delayed release: [...] R.N. Allergies: no known drug allergies -- 10:59 06/21/24 AGNES Becker R.N. Problems: Myocardial Infarction -- 10:58 06/21/24 AGNES Becker R.N. Hypertension -- 10:58 06/21/24 AGNES Becker R.N. Hyperlipidemia -- 10:58 06/21/24 AGNES Becker R.N. ADDITIONAL SURGERIES: Cholecystectomy -- 10:59 06/21/24 AGNES Becker R.N. Tubal Ligation -- 10:59 06/21/24 AGNES Becker R.N. History 10:53 06/21/24. SOCIAL HX: [...] 06/21/24. To room. -- 11:06/21/24 EDT Ellis Becker R.N. PHYSICAL ASSESSMENT 11:00 06/21/24. Ambulatory to [...] EDT Heron Eduardo R.N. NURSING PROGRESS NOTES 10:59 06/21/24. 12-LEAD EKG: EKG time: (10:59 06/21/2024). 12-Lead EKG was ordered, performed by me and shown to the ED physician (11:06/21/2024). -- 11:06/21/24 AGNES Eduardo R.N. 11:06/21/24. Patient identifiers checked. Call light placed in reach. Side rails up x 1. Bed placed in lowest position. Brakes of bed on. -- 11:06/21/24 EDT Heron Eduardo R.N. 11:06/21/24. Two patient identifiers checked. Call light placed in reach. Side rails up x 2. Bed placed in lowest position. Brakes of bed on. Brakes of chair on. -- 11:06/21/24 AGNES Taylor R.N. 11:06/21/24. Site #1 started via IV in the left antecubital space with a 20g angiocath; 1 attempt. Blood drawn: rainbow set tube(s). -- 11:06/21/24 AGNES Taylor R.N. 12:06/21/24. Rounding: Position: states comfortable. Proximity of possessions / care items: call light within easy reach. Plug ins: checked status of equipment in use; located all cords, tubes, and lines to prevent fall hazard. Set expectations: advised patient of rounding protocol timing and asked if they needed anything else at this time. -- 12:49 06/21/24 EDT Vishnu ChristopherNMarco Antonio DISPOSITION / DISCHARGE 12:46 06/21/24. BP: 165/88 MAP: 105 mmHg. HR: 56 bpm. -- 13:34 06/21/24 EDT Vishnu ChristopherNMarco Antonio 12:50 06/21/24. HR: 59 bpm. O2 saturation: 96%. -- 13:34 06/21/24 EDT Vishnu ChristopherNMarco Antonio 13:15 06/21/24. Site #1 removed upon disch (more content not included)... Normal [facility] ED ORDER SHEET (CPOE ONLY)on 06-21-2024 ED ORDER SHEET (CPOE ONLY) Order Sheet Order Sheet [address] [place] [address] [id number] 06/21/2024 Patient: NOEMI ALONSO Sex: Female : 1965 Age: 59y MEASUREMENTS: Wt: 72.6 kg, Ht/Rafy: 62.0 in, BMI: 29.26 ALLERGIES: No known drug allergies MEDICATION/IV/DRIP/FL UID ORDERS Order Description Priority Entered Acknowledged Completed LAB ORDERS Order Description Priority Entered Acknowledged Collected Completed CBC w Diff Stat Stat 11:06/21/2024 11:03 06/21/2024 11:38 06/21/2024 Heron Flores Lemasters, D.O. R.NMarco Antonio R.N. CMP Stat Stat 11:06/21/2024 11:03 06/21/2024 11:38 06/21/2024 Heron Flores Lemasters, D.O. R.NMarco Antonio R.N. EKG - ED Stat Stat 11:06/21/2024 11:03 06/21/2024 11:05 06/21/2024 Heron Flores Lemasters, D.O. R.N. R.N. Troponin-I Protocol Stat 11:01 06/21/2024 11:03 06/21/2024 11:38 06/21/2024 (STAT 1hr) (Sched: q1h Randy Eduardo, Heron Eduardo, 1 of 3 Order Sheet X2); Stat [...] 06/21/2024 Heron Flores Lemasters, D.O. R.N. R.N. Dispatcher Radio 11:01 06/21/2024 11:03 06/21/2024 11:38 06/21/2024 Randy HeronHeron Henderson Lemasters, D.O. R.NMarco Antonio RMarco AntonioNMarco Antonio 2 of 3 Order Sheet Vital signs every 15 11:01 06/21/2024 11:03 06/21/2024 11:39 06/21/2024 minutes Heron Flores Lemasters, D.O. R.NMarco Antonio R.NMarco Antonio IV Saline Lock 11:01 06/21/2024 11:03 06/21/2024 11:38 06/21/2024 Heron Flores Lemasters, D.O. R.NMarco Antonio R.NMarco Antonio [Electronically signed by Randy Quiles D.O. (06/21/2024 12:54 EDT)] 3 of 3 Normal [facility] ED PHYSICIAN CLINICAL REPORT on 06-21-2024 ED PHYSICIAN CLINICAL REPORT Narrative Physician Clinical Narrative [address] [address] [id number] 06/21/2024 Patient: NOEMI ALONSO Sex: Female : 1965 Age: 59y Primary Insurance: [facility] Policy Number: [id number] Subscriber: Other Disposition: Discharge Disposition Decision Time: [...] 1.50 - 7.10 Final EDT 06/21/2024 11:22 Warren # 0.49 x10/UL 0.20 - 1.00 Final [...] 3.5 - 5.1 Final 11:46 EDT 06/21/2024 (more content not included)... Normal [facility] ED SUPER BILLon 06-21-2024 ED SUPER BILL [address] [address] [id number] 06/21/2024 Patient: NOEMI ALONSO Sex: Female : 1965 Age: 59y Item Professional Category Description Facility Code Code Quantity Fee Total Nurse/E/M EMERGENCY 695685 1 $0.00 $0.00 DEPARTMENT VISIT MODERATE SEVERITY (45830-88) Grand Total $0.00 Providers Randy Quiles D.O. Chief Complaint CHEST PAIN. Principal Diagnosis Chest pain. ICD-10 Codes 1 of 2 [facility] R07.9: Chest pain, unspecified 2 of 2 Normal [facility] ED VISIT SUMMARYon ED VISIT SUMMARY Visit Overview Visit Overview [address] [address] [id number] 06/21/2024 Patient: NOEMI ALONSO Sex: Female : 1965 Age: 59y [...] tablet: 1 tablet once a day. 1 of 3 Visit Overview PAST MEDICAL HISTORY / [...] 13:20 06/21/24 HR 11:02 06/21/24 65 HR 13:20 06/21/24 2 of 3 Visit Overview First Vitals Last Vitals RR 11:02 06/21/24 18 RR 13:20 06/21/24 18 O2 Sat 11:02 06/21/24 95% O2 Sat 13:20 06/21/24 Pain 11:02 06/21/24 8 Pain 13:20 06/21/24 ETCO2 11:02 06/21/24 ETCO2 13:20 06/21/24 GCS 11:02 06/21/24 GCS 13:20 06/21/24 RTS 11:02 06/21/24 RTS 13:20 06/21/24 PROCEDURES NURSING INTERVENTIONS LABS / STUDIES LABS / STUDIES ORDERED CBC w Diff Chest 1V CMP EKG - ED Flu Swab (Influenzae AAg) Rapid COVID (SARS) ANTIGEN TEST Troponin-I Protocol (STAT 1hr) Troponin-I Protocol (STAT 1hr) CLINICAL IMPRESSION CHEST PAIN 3 of 3 Normal [facility] ED VITALS FLOW SHEETon 06-21 ED VITALS FLOW SHEET Vitals Vital Sign Flow Sheet [address] [place] [address] [id number] 06/21/2024 Patient: NOEMI ALONSO Sex: Female : 1965 Age: 59y [...] 95% 97.4 F 8 2 of 2 Normal [facility] INFLUENZA VIRUS RAPID A/Bon 06-21-2024 INFLUENZA VIRUS RAPID A/B INFLUENZA A NEGATIVE INFLUENZA B NEGATIVE INTERNAL NEG QC PASS INTERNAL POS QC PASS EXTERNAL QC DONE? YES SEND TO IC? NO A NEGATIVE TEST RESULT DOES NOT EXCLUDE [...] UP TO THREE DAYS. RESULT CRITICAL? NO Normal [facility] Comment on above: Performed By: #### 2 [id number] ####[facility],[address] [place] [address]287 TROPONINon 06-21-2024 HS TROPONIN 5.0 pg/mL Normal 0.0 - 51.4 [facility] Comment on above: Performed By: #### 2 61153 #### [facility],[address] [place] [address] HS TROPONIN 4.7 pg/mL Normal 0.0 - 51.4 [facility] Comment on above: Performed By: #### 2 95758 #### [facility],[address] [place] [address] 91755 CNCOon 06-06-2024 CNCO Letter Text Normal [facility] CNPLexi 05-14-2024 CNPN Telephone (DEEDEE) NOEMI ALONSO ([id number]) 1965 F Date Time Provider Department 05/14/24 LA JACQUES During your visit today, we recorded the following information about you: Kaye Negron, RN 05/14/2024 9:17 AM Signed Pt phoned [...] three times a day. New script sent. [facility] website checked and validated. All prescriptions have [...] Well adult exam [Z00.00] 10/06/2018 History of SD (myocardial infarction) [I25.2] 07/11/2019 Former smoker [Z87.891] 2020 Lung nodules [R91.8] 2020 Elevated LFTs [R79.89] 2020 GERD without esophagitis [K21.9] 12/12/2020 Elevated hemoglobin A1c [R73.09] 07/18/2021 Medication management [Z79.899] 07/18/2021 Metabolic dysfunction-associate d steatohepatiti*2021 Female genital prolapse [N81.9] 08/17/2021 Pelvic pain [...] Encounter Status:Closed by REHANA MORELAND on 05/15/24 Normal [facility] MR Brain WO contraston 05-09 IMPRESSION: Normal MRI brain without contrast for age. Incidentally noted right exotropia. Internet Programmer: GONSALO Transcribe Date/Time: May 09 2024 10:06A Dictated by : HOLDEN MEDINA MD This examination was interpreted and the report reviewed and electronically signed by: HOLDEN MEDINA MD on May 09 2024 10:07AM [facility] DIVISION OF RADIOLOGY * * *Final Report* * * DATE OF EXAM: May 09 2024 9:17AM [facility] 0294 - MRI BRAIN WO IVCON / [...] orbits and extracranial soft tissues are unremarkable. DIVISION OF RADIOLOGY Provider, [facility] - 05/09/2024 * * *Final Report* * * DATE OF EXAM: May 09 2024 9:17AM [facility] 0294 - MRI BRAIN WO IVCON / [...] orbits and extracranial soft tissues are unremarkable. IMPRESSION IMPRESSION: Normal MRI brain without contrast for age. Incidentally noted right exotropia. Internet Programmer: GONSALO Transcribe Date/Time: May 09 2024 10:06A Dictated by : HOLDEN MEDINA MD This examination was interpreted and the report reviewed and electronically signed by: HOLDEN MEDINA MD on May 09 2024 10:07AM EST [facility] Radiology Study observation (narrative) [facility] MR Brain WO contrastOrdered By: Ccf Provider on 05-09-2024 [facility] MRI BRAIN WO IVCONon 025 MRI BRAIN WO IVCON * * *Final Report* * * DATE OF EXAM: May 09 2024 9:17AM [facility] 0294 - MRI BRAIN WO IVCON / [...] contrast for age. Incidentally noted right exotropia. Internet Programmer: PSCB Transcribe Date/Time: May 09 2024 10:06A Dictated by : HOLDEN MEDINA MD This examination was interpreted and the report reviewed and electronically signed by: HOLDEN MEDINA MD on May 09 2024 10:07AM EST [id number] Normal [facility] 05-08-2024 CNPN Telephone (FAMPWS) GAVINNOEMI ([id number]) 1965 F Date Time Provider Department 05/08/24 OSVALDO SUE During your visit today, we recorded the following information about you: Kaye Negron RN 05/08/2024 11:56 AM Signed Patient asking pcp to order her a different acid reflux pill. States the famotidine is not helping. [facility]. Last ov: 04/11/24 Osvaldo Sue MD 05/08/2024 4:56 PM Signed Let patient know she was taking omeprazole 40 mg a day in 2021 and 2022. Does she want to go back to taking it. If so I will send in a script and will need f/u in a month within the [facility]ad. Lona Constantino OCCA 05/09/2024 10:13 AM Signed TC to patient who states she would like to go back on the omeprazole to [facility] in [place]. Patient has been scheduled for follow up with Vishnu Sahu on 06/06. Loan Constantino, Cheryl Cai PA-C 05/09/2024 11:47 AM Signed The following [...] Fully Assessed Reason for Visit: Patient Question [4067] Order(s):omeprazole (PRILOSEC) 40 mg capsuleTake 1 capsule [...] Well adult exam [Z00.00] 10/06/2018 History of SD (myocardial infarction) [I25.2] 07/11/2019 Former smoker [Z87.891] 2020 Lung nodules [R91.8] 2020 Elevated LFTs [R79.89] 2020 GERD without esophagitis [K21.9] 12/12/2020 Elevated hemoglobin A1c [R73.09] 07/18/2021 Medication management [Z79.899] 07/18/2021 Metabolic dysfunction-associate d steatohepatiti*2021 Female genital prolapse [N81.9] 08/17/2021 Pelvic pain [...] Encounter Status:Closed by CHERYL PERKINS on 05/09/24 [facility] Alexis 05-02-2024 CNOV Office Visit (NEMOWS ) NOEMI ALONSO ([id number]) 1965 F Date Time Provider Department 05/02/24 9:30 AM LA JACQUES During your visit today, we recorded the following information about you: Pulse Blood pressure Weight 49/minute 136/83 73.1 kg La Jacques PA-C 05/02/2024 10:09 AM Signed [facility] Date: May 02, 2024 Patient Name: Noemi Alonso Referring physician: Cheryl Sahu PA-C [address] [facility] [address] Consult requested for headaches by Cheryl Sahu PA-C. Recommendations will be communicated via shared medical record or US mail. Primary physician: Osvaldo Sue [address] [place] [address] Reason for Evaluation: Headaches Subjective HPI Noemi Alonso is a 59 year old right-handed [...] and turn all night (menopause causes sweats), [employer] (more content not included)... Normal [facility] CNOVon 04-11-2024 CNOV Office Visit (FAMPWS ) NOEMI ALONSO ([id number]) 1965 F Date Time Provider Department 04/11/24 8:40 AM [facility] During your visit today, we recorded the following information about you: Temperature Pulse Respiration Blood pressure 97.9 degrees 60/minute 16/minute 122/86 Weight 73.9 kg Cheryl Sahu PA-C 04/11/2024 12:23 PM Signed Chief Complaint Patient presents with: Follow Up HPI Noemi Alonso is a 59 year old female [...] 08/17/2021 GERD without esophagitis 12/12/2020 History of SD (myocardial infarction) 07/11/2019 2016 Lung nodules 2020 [...] LIGATE FALLOPIAN TUBE age 23 - at [facility] PAST SURGICAL HISTORY OF 04/2014 heart [...] 2 weeks then 3 times/weeks for maintenance. ijjjhsco-mesdoknca-cx drocortisone (CORTISPORIN) 3.5-10,000-1 mg/mL-unit/mL-% otic suspension Use 3 [...] due on 03/14/2034 Hepatitis C Screening Completed Hep (more content not included)... Normal [facility] Paul 04-05-2024 KASIN Telephone (PRETTY) NOEMI ALONSO ([id number]) 1965 F Date Time Provider Department 04/05/24 CHERYL SAHU During your visit today, we recorded the following information about you: Breann Davis LPN 04/05/2024 7:12 AM Signed Received via fax results of pt's Elastography done at [facility] ordered by Cheryl. Breann Davis LPN Scan on 04/05/2024 12:11 AM by Provider, JOSE Abarca: Ultrasound Monica Means APRN.RN PSYCH 04/05/2024 8:39 AM Signed Please let patient [...] tablet by mouth daily at bedtime. - finamqzq-ijewmxhtx-hn drocortisone (CORTISPORIN) 3.5-10,000-1 mg/mL-unit/mL-% otic suspension Use 3 [...] Well adult exam [Z00.00] 10/06/2018 History of SD (myocardial infarction) [I25.2] 07/11/2019 Former smoker [Z87.891] [...] Encounter Status:Closed by BREANN DAVIS on 04/09/24 Normal [facility] Abdomen Limitedon 04-03-2024 Abdomen Limited [facility] Services [address] [place] [address] [id number] Abdomen Limited MR#: [id number] Acct: [id number] Name: NOEMI ALONSO Rep #: [id number] : 1965 F 59 From: David noel MD PCP: Dr. Osvaldo Sue MD Status: REG CLI Study: Abdomen Limited Date of Exam: 04/03/24 Exam# [id number] Ordering Dr: Cheryl Sahu [id number] STUDY: ABDOMINAL ULTRASOUND - ELASTOGRAPHY REASON FOR VISIT: Female, 59 years old. Nonalcoholic steatohepatitis TECHNIQUE: Mack scale and color doppler imaging was performed of the right upper quadrant.Liver stiffness measurements were obtained on a [employer] RS 85 ultrasound machine using a CA 1-7 probe following the SRU guidelines. 3 measurements were obtained using a 2-D-SWE method. TheIQR/M was 12% suggesting a quality data set. TECHNICAL QUALITY: Adequate. COMPARISON: No relevant prior comparison study available FINDINGS: LIVER: The liver is normal in size and shape with moderately increased echogenicity. There is no demonstrated mass lesion. Median liver stiffness measured 9.1 kPa. No focal hepatic lesion. No intrahepatic biliary ductal dilatation. There is no free fluid. GALLBLADDER AND BILIARY TREE: Cholecystectomy. The proximal common bile duct measures 0.6 cm, which is within normal limits for the patient''s age. PANCREAS: No focal abnormality is demonstrated in the pancreas. No pancreatic ductal dilatation. RIGHT KIDNEY: The right kidney measures 12.1 cm. No hydronephrosis or nephrolithiasis. No renal mass. US/Abdomen Limited IMPRESSION: Liver stiffness measures 9.1 kPa compatible with F2-F3 (Mild to moderate liver fibrosis) Metavir score. Hepatic steatosis. Electronically Signed: David Miller MD at 0:06 EST , CC: Dr. Osvaldo Sue MD; SASHA Call Internet Programmer: Signed [facility] Office Visit (FAMPWS ) NOEMI ALONSO ([id number]) 1965 F Date Time Provider Department 03/21/24 11:40 AM CHERYL SAHU During your visit today, we recorded the following information about you: Temperature Pulse Respiration Blood pressure 97.3 degrees 54/minute 16/minute 138/88 Weight 73.9 kg Cheryl Sahu PA-C 03/21/2024 11:56 AM Signed Chief Complaint Patient presents with: left ear pain HPI Noemi Alonso is a 59 year old female [...] 08/17/2021 GERD without esophagitis 12/12/2020 History of SD (myocardial infarction) 07/11/[address] chest [place] 03/2020 : 4 mm x 4 mm [...] LIGATE FALLOPIAN TUBE age 23 - at [facility] PAST SURGICAL HISTORY OF 04/2014 heart [...] on File Prior to Visit Medication Sig amoxicillin-clavulana te potassium (AUGMENTIN) 875-125 mg per tablet Take [...] nourished.. Ears: R canal clear. TM pearly mack. L Canal with blood noted and possible [...] 05/15/2024 Influenza Vaccine(1) due on 10/01/2024 Covid-19 Vaccine(1 - 2023-25 season) due on 03/14/2025 Annual PCP Team Chronic Disease Visit due on 03/14/2025 Diabetes Screening due on 02/28/2027 Lipid Screening due on 02/28/2029 DTaP,Tdap,Td Vaccine(3 - Td or Tdap) due on (more content not included)... Normal [facility] CNPNon 03-15-2024 CNPN Telephone (FAMWS) NOEMI ALONSO ([id number]) 1965 F Date Time Provider Department 03/15/24 CHERYL SAHU [facility] During your visit today, we recorded the following information about you: Cheryl Sahu PA-C 03/15/2024 8:03 AM Signed Let patient know that her liver enzymes have improved some but still elevated. Need to get an US with elastography of liver completed. To be done at [facility]. (Please get me order form. Dx R74.8 and K75.81) JOSE Call Sherill A, LPN 03/15/2024 9:02 AM Signed Pt notified of results and instructions. Pt verbalizes understanding. Pt aware she will be contact by [facility] to schedule once approved by her insurance. Order placed on Cheryl's desk. Referral placed in [employer]. ORIN Eastman Sherill A, LPN 03/15/2024 10:46 AM Signed Order has been faxed back to [facility]. Breann Davis LPN Allergies As of Date: 03/15/2024 (No Known Allergies) Date Reviewed: 03/14/2024 Reviewed by: Breann Davis LPN - Fully Assessed Reason for Visit: Results [95] Primary Visit Diagnosis:Elevated liver enzymes [R74.8] Other Visit Diagnosis:Metabolic dysfunction-associate d steatohepatitis (MASH) [K75.81] Prescriptions as of 03/15/2024 - amoxicillin-clavulana te potassium (AUGMENTIN) 875-125 mg per tablet Take [...] Well adult exam [Z00.00] 10/06/2018 History of SD (myocardial infarction) [I25.2] 07/11/2019 Former smoker [Z87.891] [...] Encounter Status:Closed by BREANN DAVIS on 03/15/24 Normal [facility] CNOVon 03-14-2024 CNOV Office Visit (AGAWS ) NOEMI ALONSO ([id number]) 1965 F Date Time Provider Department 03/14/24 2:40 PM CHERYL SAHU During your visit today, we recorded the following information about you: Temperature Pulse Respiration Blood pressure 97 degrees 61/minute 16/minute 130/78 Weight 73.5 kg Cheryl Sahu PA-C 03/14/2024 3:35 PM Signed Chief Complaint Patient presents with: Follow Up: Blood pressure HPI Noemi Alonso is a 59 year old female [...] 08/17/2021 GERD without esophagitis 12/12/2020 History of SD (myocardial infarction) 07/11/2019 2016 Lung nodules 2020 [...] LIGATE FALLOPIAN TUBE age 23 - at [facility] PAST SURGICAL HISTORY OF 04/2014 heart [...] C Screening Completed Hepatitis B Vaccine Discontinued H (more content not included)... Normal [facility] HAV IgM Ser Qlon 03-14-2024 HAV IgM Ql (S) Negative Normal Negative [facility] Comment on above: Order Comment: Speci men Type: BLOOD SPECIMENOrdering Facility: [facility] Address: [address] [place] [address] Result Comment: No e vidence of recent infection with Hepatitis A virus. Performed By: #### 3 1204-1, 90653-9, 3 ####[facility] [id number] [place] [address] [place] HBV core IgM Ser Qlon 2023 HBV core IgM Ql (S) Negative Normal Negative [facility] Comment on above: Order Comment: Speci men Type: BLOOD SPECIMENOrdering Facility: [facility] Address: [address] [place] [address] Result Comment: No e vidence of recent infection with Hepatitis B virus. Should recent infection be suspected, repeat testing may be considered 3-4 weeks after this draw. Performed By: #### 3 1204-1, 68993-7, 3 ####[facility] [id number] [place] [address] [place] HBV surface Ag Ser Qlon 03-04 HBV surface Ag Ql (S) Negative Normal Negative [facility] Comment on above: Order Comment: Speci men Type: BLOOD SPECIMENOrdering Facility: [facility] Address: [address] [place] [address] Performed By: #### 3 1204-1, 14175-1, 3 ####[facility] [id number] [place] [address] [place] HCV Ab Ser Qlon 03-14-2024 HCV Ab Ql (S) Negative Normal Negative [facility] Comment on above: Order Comment: Speci men Type: BLOOD SPECIMENOrdering Facility: [facility] Address: [address] [place] [address] Result Comment: The result suggests no evidence of active infection with Hepatitis C virus. Should recent infection be suspected, repeat testing may be considered 4-6 weeks after this draw. Performed By: #### 1 6128-1 ####[facility] [id number] [place] [address] [place] Hepatic function 2000 panelo n 03-14-2024 Albumin [Mass/Vol] 4.7 g/dL Normal 3.9-4.9 [facility] Comment on above: Order Comment: Speci men Type: BLOOD SPECIMENOrdering Facility: [facility] Address: [address] [place] [address] Performed By: #### 2 4325-3 ####[facility] [id number] [place] [address] [place] ALP [Catalytic activity/Vol] 103 U/L Normal 34-123 [facility] Comment on above: Order Comment: Speci men Type: BLOOD SPECIMENOrdering Facility: [facility] Address: [address] [place] [address] Performed By: #### 2 4325-3 ####[facility] [id number] [place] [address] [place] ALT [Catalytic activity/Vol] 129 U/L High 7-38 [facility] Comment on above: Order Comment: Speci men Type: BLOOD SPECIMENOrdering Facility: [facility] Address: [address] [place] [address] Performed By: #### 2 4325-3 ####[facility] [id number] [place] [address] [place] AST [Catalytic activity/Vol] 96 U/L High 13-35 [facility] Comment on above: Order Comment: Speci men Type: BLOOD SPECIMENOrdering Facility: [facility] Address: [address] [place] [address] Performed By: #### 2 4325-3 ####[facility] [id number] [place] [address] [place] Bilirubin [Mass/Vol] 0.6 mg/dL Normal 0.2-1.3 [facility] Comment on above: Order Comment: Speci men Type: BLOOD SPECIMENOrdering Facility: [facility] Address: [address] [place] [address] Performed By: #### 2 4325-3 ####[facility] [id number] [place] [address] [place] Bilirubin.conjugated [Mass/Vol] mg/dL Normal <0.2 [facility] Comment on above: Order Comment: Speci men Type: BLOOD SPECIMENOrdering Facility: [facility] Address: [address] [place] [address] Performed By: #### 2 4325-3 ####[facility] [id number] [place] [address] [place] Protein [Mass/Vol] 7.9 g/dL Normal 6.3-8.0 [facility] Comment on above: Order Comment: Speci men Type: BLOOD SPECIMENOrdering Facility: [facility] Address: [address] [place] [address] Performed By: #### 2 4325-3 ####[facility] [id number] [address] [place] [facility] NOEMI ALONSO ([id number]) 1965 F Date Time Provider Department 03/02/24 MONICA MEANS [facility] During your visit today, we recorded the following information about you: Monica Means APRN.RN PSYCH 03/02/2024 9:59 AM Signed Please find out if patient is having any urinary symptoms. Dulce Maria Martinez MA 03/02/2024 11:29 AM Signed Attempted to contact patient no answer; no voicemail set up. WILLIAM Cartagena Beth, LPN 03/03/2024 9:56 AM Signed Phoned patient went over notes below, patient said she has been having some back pain and flank pain past few days. Aware [employer] ENGINEER is not in office today. Patient uses [facility] for her pharmacy. Please advise Monica Means APRN.RN PSYCH 2024 8:56 AM Signed Please let patient know I have sent antibiotics. Sean Elise MA 2024 9:37 AM Signed Pt notified and verbalized understanding Sean Elise MA Allergies As of Date: 03/02/2024 (No Known Allergies) Date Reviewed: 02/29/2024 Reviewed by: Sean Chambers MA - Fully Assessed Reason for Visit: Results [95] Primary Visit Diagnosis:Urinary tract infection without hematuria, site unspecified [N39.0] Order(s):nitrofuranto in monohydrate and macrocrystal (MACROBID) 100 mg capsuleTake [...] Well adult exam [Z00.00] 10/06/2018 History of SD (myocardial infarction) [I25.2] 07/11/2019 Former smoker [Z87.891] [...] day for 7 days. Encounter Status:Closed by WORKSEAN ROSARIO CMA on 03/05/24 Normal [facility] CBC W Auto Differential pane l (Bld)on 02-29-2024 Basophils (Bld) [#/Vol] 0.08 10*3/uL [facility] Basophils/100 WBC (Bld) 0.7 % [facility] Differential cell count method Nom (Bld) Auto [facility] Eosinophils (Bld) [#/Vol] 0.20 10*3/uL [facility] Eosinophils/100 WBC (Bld) 1.8 % [facility] Erythrocyte distribution width (RBC) [Ratio] 12.9 % 11.5 - 15.0 % [facility] Hematocrit (Bld) [Volume fraction] 48.2 % High 36.0 - 46.0 % [facility] Hemoglobin (Bld) [Mass/Vol] 15.8 g/dL High 11.5 - 15.5 g/dL [facility] Immature granulocytes (Bld) [#/Vol] 0.03 10*3/uL [facility] Immature granulocytes/100 WBC (Bld) 0.3 % [facility] Interpretation and review of laboratory results Abnormal [facility] Lymphocytes (Bld) [#/Vol] 3.51 10*3/uL [facility] Lymphocytes/100 WBC (Bld) 32.4 % [facility] MCH (RBC) [Entitic mass] 31.3 pg 26. 0 - 34.0 pg [facility] MCHC (RBC) [Mass/Vol] 32.8 g/dL 30.5 - 36.0 g/dL [facility] MCV (RBC) [Entitic vol] 95.4 fL 80.0 - 100.0 fL [facility] Monocytes (Bld) [#/Vol] 0.66 10*3/uL [facility] Monocytes/100 WBC (Bld) 6.1 % [facility] Neutrophils (Bld) [#/Vol] 6.36 10*3/uL [facility] Neutrophils/100 WBC (Bld) 58.7 % [facility] Nucleated RBC (Bld) [#/Vol] [facility] Nucleated RBC/100 WBC (Bld) [Ratio] 0.0 % /100 WBC [facility] Platelet mean volume (Bld) [Entitic vol] 11.5 fL 9.0 - 12.7 fL [facility] Platelets (Bld) [#/Vol] 221 10*3/uL [facility] Comment on above: No clot detected. RBC (Bld) [#/Vol] 5.05 10*6/uL 3.90 - 5.2 0 m/uL [facility] WBC (Bld) [#/Vol] 10.84 10*3/uL [facility] Basophils (Bld) [#/Vol] 0.08 10*3/uL Normal <0.11 [facility] Comment on above: Order Comment: Speci men Type: BLOOD SPECIMENOrdering Facility: [facility] Address: [address] [place] [address] Performed By: #### 5 7021-8 ####[facility] [id number] [place] [address] [place] Basophils/100 WBC (Bld) 0.7 % Normal [facility] Comment on above: Order Comment: Speci men Type: BLOOD SPECIMENOrdering Facility: [facility] Address: [address] [place] [address] Performed By: #### 5 7021-8 ####[facility] [id number] [place] [address] [place] Differential cell count method Nom (Bld) Auto Normal [facility] Comment on above: Order Comment: Speci men Type: BLOOD SPECIMENOrdering Facility: [facility] Address: [address] [place] [address] Performed By: #### 5 7021-8 ####[facility] [id number] [place] [address] [place] Eosinophils (Bld) [#/Vol] 0.20 10*3/uL Normal <0.46 [facility] Comment on above: Order Comment: Speci men Type: BLOOD SPECIMENOrdering Facility: [facility] Address: [address] [place] [address] Performed By: #### 5 7021-8 ####[facility] [id number] [place] [address] [place] Eosinophils/100 WBC (Bld) 1.8 % Normal [facility] Comment on above: Order Comment: Speci men Type: BLOOD SPECIMENOrdering Facility: [facility] Address: [address] [place] [address] Performed By: #### 5 7021-8 ####[facility] [id number] [place] [address] [place] Erythrocyte distribution width (RBC) [Ratio] 12.9 % Normal 11.5-15.0 [facility] Comment on above: Order Comment: Speci men Type: BLOOD SPECIMENOrdering Facility: [facility] Address: [address] [place] [address] Performed By: #### 5 7021-8 ####[facility] [id number] [place] [address] [place] Hematocrit (Bld) [Volume fraction] 48.2 % High 36.0-46.0 [facility] Comment on above: Order Comment: Speci men Type: BLOOD SPECIMENOrdering Facility: [facility] Address: [address] [place] [address] Performed By: #### 5 7021-8 ####[facility] [id number] [place] [address] [place] Hemoglobin (Bld) [Mass/Vol] 15.8 g/dL High 11.5-15.5 [facility] Comment on above: Order Comment: Speci men Type: BLOOD SPECIMENOrdering Facility: [facility] Address: [address] [place] [address] Performed By: #### 5 7021-8 ####[facility] [id number] [place] [address] [place] Immature granulocytes (Bld) [#/Vol] 0.03 10*3/uL Normal <0.10 [facility] Comment on above: Order Comment: Speci men Type: BLOOD SPECIMENOrdering Facility: [facility] Address: [address] [place] [address] Performed By: #### 5 7021-8 ####[facility] [id number] [place] [address] [place] Immature granulocytes/100 WBC (Bld) 0.3 % Normal [facility] Comment on above: Order Comment: Speci men Type: BLOOD SPECIMENOrdering Facility: [facility] Address: [address] [place] [address] Performed By: #### 5 7021-8 ####[facility] [id number] [place] [address] [place] Lymphocytes (Bld) [#/Vol] 3.51 10*3/uL Normal 1.00-4.00 [facility] Comment on above: Order Comment: Speci men Type: BLOOD SPECIMENOrdering Facility: [facility] Address: [address] [place] [address] Performed By: #### 5 7021-8 ####[facility] LABIA [id number] [place] [address] [place] Lymphocytes/100 WBC (Bld) 32.4 % Normal [facility] Comment on above: Order Comment: Speci men Type: BLOOD SPECIMENOrdering Facility: [facility] Address: [address] [place] [address] Performed By: #### 5 7021-8 ####[facility]IA [id number] [place] [address] [place] MCH (RBC) [Entitic mass] 31.3 pg Normal 26.0-34.0 [facility] Comment on above: Order Comment: Speci men Type: BLOOD SPECIMENOrdering Facility: [facility] Address: [address] [place] [address] Performed By: #### 5 7021-8 ####[facility]IA [id number] [place] [address] [place] MCHC (RBC) [Mass/Vol] 32.8 g/dL Normal 30.5-36.0 [facility] Comment on above: Order Comment: Speci men Type: BLOOD SPECIMENOrdering Facility: [facility] Address: [address] [place] [address] Performed By: #### 5 7021-8 ####[facility] [id number] [place] [address] [place] MCV (RBC) [Entitic vol] 95.4 fL Normal 80.0-100.0 C [facility] Comment on above: Order Comment: Speci men Type: BLOOD SPECIMENOrdering Facility: [facility] Address: [address] [place] [address] Performed By: #### 5 7021-8 ####[facility] [id number] [place] [address] [place] Monocytes (Bld) [#/Vol] 0.66 10*3/uL Normal <0.87 [facility] Comment on above: Order Comment: Speci men Type: BLOOD SPECIMENOrdering Facility: [facility] Address: [address] [place] [address] Performed By: #### 5 7021-8 ####[facility] [id number] [place] [address] [place] Monocytes/100 WBC (Bld) 6.1 % Normal C [facility] Comment on above: Order Comment: Speci men Type: BLOOD SPECIMENOrdering Facility: [facility] Address: [address] [place] [address] Performed By: #### 5 7021-8 ####[facility] [id number] [place] [address] [place] Neutrophils (Bld) [#/Vol] 6.36 10*3/uL Normal 1.45-7.50 [facility] Comment on above: Order Comment: Speci men Type: BLOOD SPECIMENOrdering Facility: [facility] Address: [address] [place] [address] Performed By: #### 5 7021-8 ####[facility] [id number] [place] [address] [place] Neutrophils/100 WBC (Bld) 58.7 % Normal [facility] Comment on above: Order Comment: Speci men Type: BLOOD SPECIMENOrdering Facility: [facility] Address: [address] [place] [address] Performed By: #### 5 7021-8 ####[facility] [id number] [place] [address] [place] Nucleated RBC (Bld) [#/Vol] 10*3/uL Normal <0.01 [facility] Comment on above: Order Comment: Speci men Type: BLOOD SPECIMENOrdering Facility: [facility] Address: [address] [place] [address] Performed By: #### 5 7021-8 ####[facility] [id number] [place] [address] [place] Nucleated RBC/100 WBC (Bld) [Ratio] 0.0 /100 WBC Normal [facility] Comment on above: Order Comment: Speci men Type: BLOOD SPECIMENOrdering Facility: [facility] Address: [address] [place] [address] Performed By: #### 5 7021-8 ####[facility] [id number] [place] [address] [place] Platelet mean volume (Bld) [Entitic vol] 11.5 fL Normal 9.0-12.7 [facility] Comment on above: Order Comment: Speci men Type: BLOOD SPECIMENOrdering Facility: [facility] Address: [address] [place] [address] Performed By: #### 5 7021-8 ####[facility] [id number] [place] [address] [place] Platelets (Bld) [#/Vol] 221 10*3/uL Normal 150-400 [facility] Comment on above: Order Comment: Speci men Type: BLOOD SPECIMENOrdering Facility: [facility] Address: [address] [place] [address] Result Comment: No c lot detected. Performed By: #### 5 7021-8 ####[facility] [id number] [place] [address] [place] RBC (Bld) [#/Vol] 5.05 10*6/uL Normal 3.90-5.20 [facility] Comment on above: Order Comment: Speci men Type: BLOOD SPECIMENOrdering Facility: [facility] Address: [address] [place] [address] Performed By: #### 5 7021-8 ####[facility] [id number] [place] [address] [place] WBC (Bld) [#/Vol] 10.84 10*3/uL Normal 3.70-11.00 [facility] Comment on above: Order Comment: Speci men Type: BLOOD SPECIMENOrdering Facility: [facility] Address: [address] [place] [address] Performed By: #### 5 7021-8 ####[facility] [id number] [address] [place] CNOVon 02-29-2024 CNOV Office Visit (FAMPWS ) NOEMI ALONSO E ([id number]) 1965 F Date Time Provider Department 02/29/24 9:40 AM CHERYL SAHU FAMPWS During your visit today, we recorded the following information about you: Temperature Pulse Respiration Blood pressure 98.4 degrees 92/minute 16/minute 146/63 Weight Height 73.2 kg 1.626 m Cheryl Sahu PA-C 02/29/2024 10:52 AM Signed Chief Complaint Patient presents with: Yearly Exam HPI Noemi Alonso is a 58 year old female [...] 08/17/2021 GERD without esophagitis 12/12/2020 History of SD (myocardial infarction) 07/11/2019 [address] chest [place] 03/2020 : 4 mm x 4 mm [...] LIGATE FALLOPIAN TUBE age 23 - at [facility] PAST SURGICAL HISTORY OF 04/2014 heart [...] 6.4 oz) SpO2 100% BMI 27.70 kg/m? (more content not included)... Normal [facility] Comprehensive metabolic 2000 panelon 02-29-2024 Albumin [Mass/Vol] 4.8 g/dL Normal 3.9-4.9 [facility] Comment on above: Order Comment: Speci men Type: BLOOD SPECIMENOrdering Facility: [facility] Address: [address] [place] [address] Performed By: #### L IPNF, 02511-3 ####[facility] [id number] [place] [address] [place] ALP [Catalytic activity/Vol] 108 U/L Normal 34-123 [facility] Comment on above: Order Comment: Speci men Type: BLOOD SPECIMENOrdering Facility: [facility] Address: [address] [place] [address] Performed By: #### L IPNF, 42015-4 ####[facility] [id number] [place] [address] [place] ALT [Catalytic activity/Vol] 162 U/L High 7-38 [facility] Comment on above: Order Comment: Speci men Type: BLOOD SPECIMENOrdering Facility: [facility] Address: [address] [place] [address] Performed By: #### L IPNF, 39212-9 ####[facility] [id number] [place] [address] [place] Anion gap [Moles/Vol] 14 mmol/L Normal 8-15 [facility] Comment on above: Order Comment: Speci men Type: BLOOD SPECIMENOrdering Facility: [facility] Address: [address] [place] [address] Performed By: #### L IPNF, 10559-2 ####[facility] [id number] [place] [address] [place] AST [Catalytic activity/Vol] 127 U/L High 13-35 [facility] Comment on above: Order Comment: Speci men Type: BLOOD SPECIMENOrdering Facility: [facility] Address: [address] [place] [address] Performed By: #### L IPNF, 37962-5 ####[facility] [id number] [place] [address] [place] Bilirubin [Mass/Vol] 0.5 mg/dL Normal 0.2-1.3 [facility] Comment on above: Order Comment: Speci men Type: BLOOD SPECIMENOrdering Facility: [facility] Address: [address] [place] [address] Performed By: #### L IPNF, 79383-4 ####[facility] [id number] [place] [address] [place] Calcium [Mass/Vol] 10.1 mg/dL Normal 8.5-10.2 [facility] Comment on above: Order Comment: Speci men Type: BLOOD SPECIMENOrdering Facility: [facility] Address: [address] [place] [address] Performed By: #### L IPNF, 69748-9 ####[facility] [id number] [place] [address] [place] Chloride [Moles/Vol] 103 mmol/L Normal 98-107 [facility] Comment on above: Order Comment: Speci men Type: BLOOD SPECIMENOrdering Facility: [facility] Address: [address] [place] [address] Performed By: #### L IPNF, 86434-9 ####[facility] [id number] [place] [address] [place] CO2 [Moles/Vol] 25 mmol/L Normal 22-30 [facility] Comment on above: Order Comment: Speci men Type: BLOOD SPECIMENOrdering Facility: [facility] Address: [address] [place] [address] Performed By: #### L MARLYN, 28601-0 ####[facility] [id number] [place] [address] [place] Creatinine [Mass/Vol] 0.57 mg/dL Low 0.58-0.96 [facility] Comment on above: Order Comment: Speci men Type: BLOOD SPECIMENOrdering Facility: [facility] Address: [address] [place] [address] Performed By: #### L IPTAWANDA, 50445-3 ####[facility] LABIA [id number] [place] [address] [place] Creatinine and Glomerular filtration rate.predicted panel (S/P/Bld) 107 mL/min/1.73m??? Normal >=60 [facility] Comment on above: Order Comment: Melvin men Type: BLOOD SPECIMENOrdering Facility: [facility] Address: [address] [place] [address] Result Comment: Rosalina mated Glomerular Filtration Rate (eGFR) is calculated using the 2020 CKD-EPI creatinine equation. This equation utilizes serum creatinine, sex, and age as parameters. The creatinine assay has traceable calibration to isotope dilution-mass spectrometry. Refer to KDIGO guidelines for clinical interpretation. In patients with unstable renal function, e.g. those with acute kidney injury, the eGFR may not accurately reflect actual GFR. Performed By: #### L MARLYN, 47877-6 ####[facility] LABCLIA [id number] [place] [id number] [place] Glucose [Mass/Vol] 87 mg/dL Normal 74-99 [facility] Comment on above: Order Comment: Radhai men Type: BLOOD SPECIMENOrdering Facility: [facility] Address: [address] [place] [address] Result Comment: The [place] Diabetes Association (ADA) provides guidance for cutoff [...] Standards of Medical Care in Diabetes 2016, [place] Diabetes Association. Diabetes Care. 2016.39(Suppl 1). Performed By: #### L IPNF, ####[facility] [id number] [place] [address] [place] Potassium [Moles/Vol] 4.5 mmol/L Normal 3.7-5.1 [facility] Comment on above: Order Comment: Speci men Type: BLOOD SPECIMENOrdering Facility: [facility] Address: [address] [place] [address] Performed By: #### L IPNF, ####[facility] [id number] [place] [address] [place] Protein [Mass/Vol] 8.1 g/dL High 6.3-8.0 [facility] Comment on above: Order Comment: Speci men Type: BLOOD SPECIMENOrdering Facility: [facility] Address: [address] [place] [address] Performed By: #### L IPNF, ####[facility] [id number] [place] [address] [place] Sodium [Moles/Vol] 142 mmol/L Normal 136-144 [facility] Comment on above: Order Comment: Speci men Type: BLOOD SPECIMENOrdering Facility: [facility] Address: [address] [place] [address] Performed By: #### L IPNF, ####[facility] [id number] [place] [address] [place] Urea nitrogen [Mass/Vol] 7 mg/dL Normal 7-21 [facility] Comment on above: Order Comment: Speci men Type: BLOOD SPECIMENOrdering Facility: [facility] Address: [address] [place] [address] Performed By: #### L IP, 84516-5 ####[facility] LABCL[facility] [id number] [place] [id number] [place] [id number] 02-29-2024 ECG01 Ventricular Rate : 9 3 BPM Atrial Rate : 93 BPM P-R Interval : 154 ms QRS Duration : 88 ms Q-T Interval : 376 ms QTC Calculation(Bazett) : 467 ms Calculated P [place] : 60 degrees Calculated R [place] : 17 degrees Calculated T [place] : 44 degrees NORMAL SINUS RHYTHM NORMAL ECG Confirmed by MD MCCURDY QARAB ([id number]) on 03/07/2024 12:00:05 PM NAME : NOEMI ALONSO PID : [id number] : 1965 Gender : Female Race : ORD : Procedure Date : Feb 29 2024 10:07:39 Edit Date : Mar 07 2024 12:00:10 Diagnosis: NORMAL SINUS RHYTHM NORMAL ECG Confirmed by MD MCCURDY QARAB ([id number]) on 03/07/2024 12:00:05 PM Test Reason : Location : 136 : [facility] Overread By : MD MCCURDY QARAB Edited By : MD MCCURDY QARAB Referred By : Luis Alberto Luna Acquired by : Wilma Jackson [facility] HbA1c (Bld)on 02-29-2024 Average glucose Estimated from glycated hemoglobin (Bld) [Mass/Vol] 108 mg/dL Normal [facility] Comment on above: Order Comment: Speci men Type: BLOOD SPECIMENOrdering Facility: [facility] Address: [address] [place] [address] Result Comment: eAG: (Estimated average glucose) is a calculated value from HgbA1c and is banking representative of the average blood glucose level in the last 2-3 month period. Performed By: #### 5 5454-3 ####[facility] [id number] [place] [address] [place] HbA1c (Bld) [Mass fraction] 5.4 % Normal 4.3-5.6 [facility] Comment on above: Order Comment: Melvin banegas Type: BLOOD SPECIMENOrdering Facility: [facility] Address: [address] [place] [address] Result Comment: [place] Diabetes Association guidelines indicate that patients with HgbA1c in the range 5.7-6.4% are at increased risk for development of diabetes, and intervention by lifestyle modification may be beneficial. HgbA1c greater or equal to 6.5% is considered diagnostic of diabetes. Performed By: #### 5 5454-3 ####[facility] [id number] [address] [place] LIPID PANEL, NONFASTINGon Cholesterol [Mass/Vol] 269 mg/dL High <200 [facility] Comment on above: Order Comment: Melvin banegas Type: BLOOD SPECIMENOrdering Facility: [facility] Address: [address] [place] [address] Result Comment: <200 mg/dL, Desirable 200-239 mg/dL, Borderline high >239 mg/dL, High Performed By: #### L IPNF, 43946-0 ####[facility] [id number] [place] [address] [place] HDL CHOLESTEROL, NF 49 mg/dL Normal >39 [facility] Comment on above: Order Comment: Melvin men Type: BLOOD SPECIMENOrdering Facility: [facility] Address: [address] [place] [address] Result Comment: 40-5 9 mg/dL, Acceptable >59 mg/dL, High: Negative risk factor for coronary heart disease <40 mg/dL, Low: Positive risk factor for coronary heart disease Performed By: #### L IPNF, 76392-0 ####[facility] [id number] [place] [address] [place] LDL CHOLESTEROL, NF 188 mg/dL High <100 [facility] Comment on above: Order Comment: Speci men Type: BLOOD SPECIMENOrdering Facility: [facility] Address: [address] [place] [address] Result Comment: <100 mg/dL, Optimal 100-129 mg/dL, Near optimal/above optimal 130-159 mg/dL, Borderline high 160-189 mg/dL, High >189 mg/dL, Very high Secondary prevention optimal LDL Cholesterol levels are recommended to be < 70 mg/dL Performed By: #### L IPNF, 61818-3 ####[facility] [id number] [address] OF [facility] LDL/HDL RATIO, NF 3.84 mg/dL High <2.54 [facility] Comment on above: Order Comment: Melvin banegas Type: BLOOD SPECIMENOrdering Facility: [facility] Address: [address] [place] [address] Result Comment: Refe rence: 1. National Cholesterol Education Program ATP III Guideline At-A-Glance Quick Desk Reference: National Heart, Lung, and Blood [place]. National Institutes of Health. 2001: NIH Publication No. 01-3305. 2. An International Atherosclerosis Society position paper: global recommendations for the management of dyslipidemia: executive summary, Atherosclerosis. 2014: 232(2):410-413. Performed By: #### L MARLYN, 28160-2 ####[facility] [id number] [address] [place] NON HDL CHOL, NF 220 mg/dL High <130 [facility] Comment on above: Order Comment: Speci makenzie Type: BLOOD SPECIMENOrdering Facility: [facility] Address: [address] [place] [address] Result Comment: <130 mg/dL, Optimal 130-159 mg/dL, Near optimal/above optimal 160-189 mg/dL, Borderline high 190-219 mg/dL, High >219 mg/dL, Very high Secondary prevention optimal non HDL Cholesterol levels are recommended to be <100 mg/dL Performed By: #### L IPNF, ####[facility] [id number] [place] [address] [place] T CHOL/HDL RATIO NF 5.49 mg/dL High <5.10 [facility] Comment on above: Order Comment: Speci men Type: BLOOD SPECIMENOrdering Facility: [facility] Address: [address] [place] [address] Performed By: #### L IPNF, ####[facility] [id number] [place] [address] [place] TRIGLYCERIDES, NF 160 mg/dL High <150 [facility] Comment on above: Order Comment: Speci men Type: BLOOD SPECIMENOrdering Facility: [facility] Address: [address] [place] [address] Result Comment: <150 mg/dL, Normal 150-199 mg/dL, Borderline high 200-499 mg/dL, High >499 mg/dL, Very high Performed By: #### L IPNF, ####[facility] [id number] [place] [address] [place] VLDL CHOLESTEROL, NF 32 mg/dL High <30 [facility] Comment on above: Order Comment: Speci men Type: BLOOD SPECIMENOrdering Facility: [facility] Address: [address] [place] [address] Performed By: #### L IPNF, 66347-4 ####[facility]CL[facility] [id number] [place] [address] [place] Urinalysis complete panel (U )on 02-29-2024 BACTERIA UL 9354.3 uL High Negative [facility] Comment on above: Order Comment: Speci men Type: URINE SPECIMENOrdering Facility: [facility] Address: [address] [place] [address] Performed By: #### 2 4356-8 ####[facility] [id number] [place] [address] [place] Bilirubin Ql (U) Negative Normal Negative [facility] Comment on above: Order Comment: Speci men Type: URINE SPECIMENOrdering Facility: [facility] Address: [address] [place] [address] Performed By: #### 2 4356-8 ####[facility] [id number] [place] [address] [place] Clarity (Unsp spec) Cloudy Abnormal [facility] Comment on above: Order Comment: Speci men Type: URINE SPECIMENOrdering Facility: [facility] Address: [address] [place] [address] Performed By: #### 2 4356-8 ####[facility]CL[facility] [id number] [place] [address] [place] [facility] Color (U) Yellow Normal Yellow [facility] Comment on above: Order Comment: Speci men Type: URINE SPECIMENOrdering Facility: [facility] Address: [address] [place] [address] Performed By: #### 2 4356-8 ####[facility] [id number] [place] [address] [place] Epithelial cells LM.HPF (Urine sed) [#/Area] Many Normal [facility] Comment on above: Order Comment: Speci men Type: URINE SPECIMENOrdering Facility: [facility] Address: [address] [place] [address] Result Comment: Few Performed By: #### 2 4356-8 ####[facility]CL[facility] [id number] [place] [address] [place] Glucose Test strip (U) [Mass/Vol] Negative Normal Negative [facility] Comment on above: Order Comment: Speci men Type: URINE SPECIMENOrdering Facility: [facility] Address: [address] [place] [address] Performed By: #### 2 4356-8 ####[facility] [id number] [place] [address] [place] Hemoglobin Ql (U) Negative Normal Negative [facility] Comment on above: Order Comment: Speci men Type: URINE SPECIMENOrdering Facility: [facility] Address: [address] [place] [address] Performed By: #### 2 4356-8 ####[facility]CL[facility] [id number] [place] [address] [place] Hyaline casts (Urine sed) [#/Area] 0 /[LPF] Normal 0 /LPF [facility] Comment on above: Order Comment: Speci men Type: URINE SPECIMENOrdering Facility: [facility] Address: [address] [place] [address] Performed By: #### 2 4356-8 ####[facility] [id number] [place] [address] [place] Ketones Ql (U) Negative Normal Negative [facility] Comment on above: Order Comment: Speci men Type: URINE SPECIMENOrdering Facility: [facility] Address: [address] [place] [address] Performed By: #### 2 4356-8 ####[facility]CL[facility] [id number] [place] [address] [place] Leukocyte esterase Test strip Ql (U) Trace Abnormal Negative [facility] Comment on above: Order Comment: Speci men Type: URINE SPECIMENOrdering Facility: [facility] Address: [address] [place] [address] Performed By: #### 2 4356-8 ####[facility] [id number] [place] [address] [place] Nitrite Ql (U) Negative Normal Negative [facility] Comment on above: Order Comment: Speci men Type: URINE SPECIMENOrdering Facility: [facility] Address: [address] [place] [address] Performed By: #### 2 4356-8 ####[facility] LABIA [id number] [place] [address] [place] pH (U) 5.0 [pH] Normal <8.5 [facility] Comment on above: Order Comment: Speci men Type: URINE SPECIMENOrdering Facility: [facility] Address: [address] [place] [address] Performed By: #### 2 4356-8 ####[facility] LABIA [id number] [place] [address] [place] Protein (U) [Mass/Vol] Negative Normal Negative [facility] Comment on above: Order Comment: Speci men Type: URINE SPECIMENOrdering Facility: [facility] Address: [address] [place] [address] Performed By: #### 2 4356-8 ####[facility] LABIA [id number] [place] [address] [place] RBC LM.HPF (Urine sed) [#/Area] 0-2 /HPF Normal 0-2 /HPF [facility] Comment on above: Order Comment: Speci men Type: URINE SPECIMENOrdering Facility: [facility] Address: [address] [place] [address] Performed By: #### 2 4356-8 ####[facility] LABIA [id number] [place] [address] [place] Specific gravity (U) [Rel density] 1.023 Normal 1.005-1.030 [facility] Comment on above: Order Comment: Speci men Type: URINE SPECIMENOrdering Facility: [facility] Address: [address] [place] [address] Performed By: #### 2 4356-8 ####[facility] LABIA [id number] [place] [address] [place] Urobilinogen Ql (U) 0.2 EU/dL Normal 0.2-1.0 EU/dL Cl [facility] Comment on above: Order Comment: Speci men Type: URINE SPECIMENOrdering Facility: [facility] Address: [address] [place] [address] Performed By: #### 2 4356-8 ####[facility]CL[facility] [id number] [place] [address] [place] WBC LM.HPF (Urine sed) [#/Area] 0-5 /HPF Normal 0-5 /HPF [facility] Comment on above: Order Comment: Speci men Type: URINE SPECIMENOrdering Facility: [facility] Address: [address] [place] [address] Performed By: #### 2 4356-8 ####[facility] [id number] [address] [place] CNOVon 01-19-2024 [facility] NOEMI ALONSO ([id number]) 1965 F Date Time Provider Department 01/19/24 2:45 PM [facility] During your visit today, we recorded the following information about you: Temperature Pulse Respiration Blood pressure 97.1 degrees 95/minute 18/minute 143/94 Weight 73.8 kg Mel Sullivan APRN.RN PSYCH 01/19/2024 3:53 PM Signed This note was created using NoteWriter. Subjective Noemi Alonso is a 58 year old female. 58 year old female with PMH migraines, HTN, SD, GERD presents for complaints of left upper [...] history is provided by the patient. No speech language specialist was used. Arm Pain Pain location: right [...] 08/17/2021 GERD without esophagitis 12/12/2020 History of SD (myocardial infarction) 07/11/[address] chest [place] 03/2020 : 4 mm x 4 mm [...] LIGATE FALLOPIAN TUBE age 23 - at [facility] PAST SURGICAL HISTORY OF 04/2014 heart [...] Cigarettes Smokeless tobacco: Former Quit date: 03/26/2022 Tobac (more content not included)... Normal [facility] No Panel Informationon 01-18 IMPRESSION: No acute radiographic abnormalities seen in the right elbow or right forearm. Internet Programmer: GONSALO Transcribe Date/Time: Jan 19 2024 3:17P Dictated by : JUSTEN ZAVALA MD This examination was interpreted and the report reviewed and electronically signed by: JUSTEN ZAVALA MD on Jan 19 2024 3:23PM EST DIVISION OF RADIOLOGY Radiology Study observation (narrative) [facility] No Panel InformationOrdered By: Ccf Provider on 01-19-2024 [facility] XR ELBOW 3V AP/LAT/OTHER RTo n 01-19-2024 XR ELBOW 3V AP/LAT/OTHER RT * * *Final Report* * * DATE [...] in the right elbow or right forearm. Internet Programmer: PSCB Transcribe Date/Time: Jan 19 2024 3:17P Dictated by : JUSTEN ZAVALA MD This examination was interpreted and the report reviewed and electronically signed by: JUSTEN ZAVALA MD on Jan 19 2024 3:23PM EST [id number] Normal [facility] XR Elbow - right AP and Late ral and obliqueon 01-19-2024 * * *Final Report* * * DATE [...] The soft tissue is within normal limits. DIVISION OF RADIOLOGY Provider, [facility] - 01/19/2024 * * *Final Report* * * DATE [...] The soft tissue is within normal limits. IMPRESSION IMPRESSION: No acute radiographic abnormalities seen in the right elbow or right forearm. Internet Programmer: PSCB Transcribe Date/Time: Jan 19 2024 3:17P Dictated by : JUSTEN ZAVALA MD This examination was interpreted and the report reviewed and electronically signed by: JUSTEN ZAVALA MD on Jan 19 2024 3:23PM [facility] XR FOREARM 2V AP/LAT RTon XR FOREARM 2V AP/LAT RT * * *Final Repor t* * * DATE OF EXAM: Jan 19 [...] in the right elbow or right forearm. Internet Programmer: [facility] Transcribe Date/Time: Jan 19 2024 3:17P Dictated by : JUSTEN ZAVALA MD This examination was interpreted and the report reviewed and electronically signed by: JUSTEN ZAVALA MD on Jan 19 2024 3:23PM EST [id number] Normal [facility] XR Radius and Ulna - right A P and Lateralon 01-19-2024 * * *Final Report* * * DATE [...] The soft tissue is within normal limits. DIVISION OF RADIOLOGY Provider, Taniay Rothman - 01/19/2024 * * *Final Report* * * DATE [...] The soft tissue is within normal limits. IMPRESSION IMPRESSION: No acute radiographic abnormalities seen in the right elbow or right forearm. Internet Programmer: GONSALO Transcribe Date/Time: Jan 19 2024 3:17P Dictated by : JUSTEN ZAVALA MD This examination was interpreted and the report reviewed and electronically signed by: JUSTEN ZAVALA MD on Jan 19 2024 3:23PM EST [facility] XR SHOULDER GENERAL 3V OR MO RE AP/TRUE AP/OTHER LEFTon 06-08-2022 [facility] XR Shoulder - left 3 Viewson 06-08-2022 IMPRESSION: No radiographic evidence of acute osseous abnormality Internet Programmer: [facility] Transcribe Date/Time: Jun 08 2022 10:29A Dictated by : KATYA SEYMOUR MD This examination was interpreted and the report reviewed and electronically signed by: KATYA SEYMOUR MD on Jun 08 2022 10:41AM [facility] DIVISION OF RADIOLOGY * * *Final Report* * * DATE OF EXAM: Jun 08 2022 10:27AM WOX [id number] - XR SHLDR >/=3V AP/AMRIT AP/OTHR LT / PROCEDURE REASON: Acute pain of left shoulder * * * * Physician Interpretation * * * * TITLE: XR SHLDR >/=3V AP/AMRIT AP/OTHR LT CLINICAL INDICATION: Shoulder pain TECHNIQUE: 3 view radiographic study of the left shoulder COMPARISON: None FINDINGS: No acute fracture or dislocation identified. Acromioclavicular joint intact. DIVISION OF RADIOLOGY Provider, [facility] - 06/08/2022 * * *Final Report* * * DATE OF EXAM: Jun 08 2022 10:27AM WOX 5252 - XR SHLDR >/=3V AP/AMRIT AP/OTHR LT / PROCEDURE REASON: Acute pain of left shoulder * * * * Physician Interpretation * * * * TITLE: XR SHLDR >/=3V AP/AMRIT AP/OTHR LT CLINICAL INDICATION: Shoulder pain TECHNIQUE: 3 view radiographic study of the left shoulder COMPARISON: None FINDINGS: No acute fracture or dislocation identified. Acromioclavicular joint intact. IMPRESSION IMPRESSION: No radiographic evidence of acute osseous abnormality Internet Programmer: [facility] Transcribe Date/Time: Jun 08 2022 10:29A Dictated by : KATYA SEYMOUR MD This examination was interpreted and the report reviewed and electronically signed by: KATYA SEYMOUR MD on Jun 08 2022 10:41AM EST [facility] Radiology Study [facility]narrative) [facility] XR Shoulder - left 3 ViewsOr dered By: Ccf Provider on 06-08-2022 [facility] Urinalysis complete panel (U )on 06-05-2022 Bilirubin Ql (U) Negative Negative [facility] Clarity (Unsp spec) Clear Clear [facility] Color (U) Yellow Yellow [facility] Epithelial cells LM.HPF (Urine sed) [#/Area] Few [facility] Glucose Test strip (U) [Mass/Vol] Negative Trace, Negative [facility] Hemoglobin Ql (U) Negative Negative, Trace [facility] Ketones Ql (U) Negative Trace, Negative [facility] Leukocyte esterase Test strip Ql (U) Negative Negative, 25 [place]/uL [facility] Nitrite Ql (U) Negative Negative [facility] pH (U) 5.5 [pH] 5.0 - 8.0 [facility] Protein (U) [Mass/Vol] Negative Trace , Negative [facility] RBC LM.HPF (Urine sed) [#/Area] 0-3 /HPF 0-3 /HPF [facility] Specific gravity (U) [Rel density] 1.025 1.005 - 1.030 [facility] Urobilinogen Ql (U) Negative Negative [facility] WBC LM.HPF (Urine sed) [#/Area] 0-5 /HPF 0-5 /HPF [facility] CBC W Auto Differential pane l (Bld)on 06-04-2022 Basophils (Bld) [#/Vol] 0.07 10*3/uL <0.11 k/uL [facility] Basophils/100 WBC (Bld) 0.7 % [facility] Differential cell count method Nom (Bld) Auto [facility] Eosinophils (Bld) [#/Vol] 0.23 10*3/uL <0.46 k/uL [facility] Eosinophils/100 WBC (Bld) 2.2 % [facility] Erythrocyte distribution width (RBC) [Ratio] 12.7 % 11.5 - 15.0 % [facility] Hematocrit (Bld) [Volume fraction] 43.4 % 36.0 - 46.0 % [facility] Hemoglobin (Bld) [Mass/Vol] 14.4 g/dL 11.5 - 15.5 g/dL [facility] Immature granulocytes (Bld) [#/Vol] <0.10 k/uL [facility] Immature granulocytes/100 WBC (Bld) 0.2 % [facility] Lymphocytes (Bld) [#/Vol] 4.72 10*3/uL High 1.00 - 4.00 k/uL [facility] Lymphocytes/100 WBC (Bld) 45.3 % [facility] MCH (RBC) [Entitic mass] 32.2 pg 26. 0 - 34.0 pg [facility] MCHC (RBC) [Mass/Vol] 33.2 g/dL 30.5 - 36.0 g/dL [facility] MCV (RBC) [Entitic vol] 97.1 fL 80.0 - 100.0 fL [facility] Monocytes (Bld) [#/Vol] 0.65 10*3/uL <0.87 k/uL [facility] Monocytes/100 WBC (Bld) 6.2 % [facility] Neutrophils (Bld) [#/Vol] 4.72 10*3/uL 1.45 - 7.50 k/uL [facility] Neutrophils/100 WBC (Bld) 45.4 % [facility] Nucleated RBC (Bld) [#/Vol] <0.01 k/uL [facility] Nucleated RBC/100 WBC (Bld) [Ratio] 0.0 /100 WBC [facility] Platelet mean volume (Bld) [Entitic vol] 10.7 fL 9.0 - 12.7 fL [facility] Platelets (Bld) [#/Vol] 321 10*3/uL 150 - 400 k/uL [facility] RBC (Bld) [#/Vol] 4.47 10*6/uL 3.90 - 5.2 0 m/uL [facility] WBC (Bld) [#/Vol] 10.41 10*3/uL 3.70 - 11 .00 k/uL [facility] Comprehensive metabolic 2000 panelon 06-04-2022 Albumin [Mass/Vol] 4.8 g/dL 3.9 - 4.9 g/dL [facility] ALP [Catalytic activity/Vol] 78 U/L 34 - 123 U/L [facility] ALT [Catalytic activity/Vol] 56 U/L High 7 - 38 U/L [facility] Anion gap [Moles/Vol] 10 mmol/L 9 - 18 mmol/L [facility] AST [Catalytic activity/Vol] 35 U/L 13 - 35 U/L [facility] Bilirubin [Mass/Vol] 0.5 mg/dL 0.2 - 1 .3 mg/dL [facility] Calcium [Mass/Vol] 9.8 mg/dL 8.5 - 10. 2 mg/dL [facility] Chloride [Moles/Vol] 102 mmol/L 97 - 10 5 mmol/L [facility] CO2 [Moles/Vol] 29 mmol/L 22 - 30 mmol/L [facility] Creatinine [Mass/Vol] 0.82 mg/dL 0.58 - 0.96 mg/dL [facility] Estimated Glomerular Filtration Rate 85 mL/min/1.73m >=60 mL/min/1.73m [facility] Glucose [Mass/Vol] 93 mg/dL 74 - 99 mg/dL [facility] Potassium [Moles/Vol] 4.6 mmol/L 3.7 - 5.1 mmol/L [facility] Protein [Mass/Vol] 7.2 g/dL 6.3 - 8.0 g/dL [facility] Sodium [Moles/Vol] 141 mmol/L 136 - 144 mmol/L [facility] Urea nitrogen [Mass/Vol] 9 mg/dL 7 - 21 mg/d L [facility] HbA1c (Bld)on 06-04-2022 Average glucose Estimated from glycated hemoglobin (Bld) [Mass/Vol] 108 mg/dL [facility] HbA1c (Bld) [Mass fraction] 5.4 % 4.3 - 5.6 % [facility] LIPID PANEL, NONFASTINGon Cholesterol [Mass/Vol] 223 mg/dL High <200 mg/dL [facility] HDL Cholesterol, Nonfasting 46 mg/dL >39 mg/dL [facility] LDL Cholesterol, Nonfasting 133 mg/dL High <100 mg/dL [facility] LDL/HDL Ratio, Nonfasting 2.89 mg/dL High <2.54 mg/dL [facility] Non HDL Cholesterol, Nonfasting 177 mg/dL High <130 mg/dL [facility] Total Chol/HDL Ratio, Nonfasting 4.85 mg/dL <5.10 mg/dL [facility] Triglycerides, Nonfasting 218 mg/dL High <150 mg/dL [facility] VLDL Cholesterol, Nonfasting 44 mg/dL High <30 mg/dL [facility] MAGNESIUM Don 06-04-2022 Magnesium [Mass/Vol] 2.1 mg/dL 1.7 - 2 .3 mg/dL [facility] TSH Don 06-04-2022 TSH Qn 1.160 m[IU]/L 0.270 - 4.200 mIU/L [facility] VITAMIN B12 BLOODon 06-05-19 Cobalamin (Vitamin B12) [Mass/Vol] 710 pg/mL 232 - 1,245 pg/mL [facility] XR CHEST 2V FRONTAL/LATon [facility] XR Chest PA and Lateralon IMPRESSION: No acute radiographic abnormality. Internet Programmer: [email or web address] Transcribe Date/Time: Jan 06 2022 8:59A Dictated by : BAHMAN IYER MD This examination was interpreted and the report reviewed and electronically signed by: BAHMAN IYER MD on Jan 06 2022 8:59AM [facility] DIVISION OF RADIOLOGY * * *Final Report* * * DATE OF EXAM: Jan 06 2022 8:53AM WOX [id number] - XR CHEST 2V FRONTAL/LAT / PROCEDURE REASON: multiple diagnoses * * * * Physician Interpretation * * * * EXAMINATION: CHEST RADIOGRAPH (2 VIEW FRONTAL & LATERAL) CLINICAL HISTORY: Cough, unspecified type Mold exposure MQ: XC2_6 EXAM DATE/TIME: 01/06/2022 8:53 AM COMPARISON: No relevant prior studies available. RESULT: Lines, tubes, and devices: None. Lungs and pleura: No consolidation. No lung mass. No pleural effusion. No pneumothorax. Cardiomediastinal silhouette: Normal cardiomediastinal silhouette. Bones and soft tissues: Unremarkable. DIVISION OF RADIOLOGY Provider, [facility] - 01/06/2022 * * *Final Report* * * DATE OF EXAM: Jan 06 2022 8:53AM WOX 5291 - XR CHEST 2V FRONTAL/LAT / PROCEDURE REASON: multiple diagnoses * * * * Physician Interpretation * * * * EXAMINATION: CHEST RADIOGRAPH (2 VIEW FRONTAL & LATERAL) CLINICAL HISTORY: Cough, unspecified type Mold exposure MQ: XC2_6 EXAM DATE/TIME: 01/06/2022 8:53 AM COMPARISON: No relevant prior studies available. RESULT: Lines, tubes, and devices: None. Lungs and pleura: No consolidation. No lung mass. No pleural effusion. No pneumothorax. Cardiomediastinal silhouette: Normal cardiomediastinal silhouette. Bones and soft tissues: Unremarkable. IMPRESSION IMPRESSION: No acute radiographic abnormality. Internet Programmer: PSCB Transcribe Date/Time: Jan 06 2022 8:59A Dictated by : BAHMAN IYER MD This examination was interpreted and the report reviewed and electronically signed by: BAHMAN IYER MD on Jan 06 2022 8:59AM [facility] Radiology Study observation (narrative) [facility] XR Chest PA and LateralOrder ed By: [facility] Provider on 01-06-2022 [facility] Bacteria Ur Culton Bacteria identified Cx Nom (U) CULTURE, URINE: 50,000-<100,000 CFU/mL Three or more organisms, no one type predominant, suggesting contamination during collection. Recollect if clinically indicated. Abnormal [facility] Comment on above: Performed By: #### 6 30-4 #### [facility][1] LABORATORY CLIA [id number] [address] [place] [address] [place] CNOVon 10-06-2021 CNOV Office Visit (GYNGRN ) NOEMI ALONSO ([id number]) 1965 F Date Time Provider Department 10/06/21 11:00 AM [facility] GYNGRMichelle During your visit today, we recorded the following information about you: Blood pressure Weight Height 122/76 72.6 kg 1.651 m Caitlyn Fortune MD 10/06/2021 12:03 PM Signed Female Pelvic Medicine AND Reconstructive Surgery Consult CHIEF COMPLAINT: Noemi Alonso is a 56 year old female who presents for consultation requested by Harriet Wagner APRN.CNM for an opinion regarding Pelvic Organ Prolapse, pelvic pain. HISTORY OF PRESENT ILLNESS: Pt reports vaginal pain and bulge. The pain started 8 months ago. Pain started initially with heavy lifting. The pain feels sharp. She cannot work or stand for prolonged period due to the pain. Lifting even 5 lbs causes pain. Also bothered by YAS[place]Y and urgency incontinence. Bilateral ovarian cysts on transabdominal pelvic US 07/16/21. 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 She has no history of an abnormal mammogram LMP: No LMP recorded. Patient is postmenopausal.; Menopause post, denies PMB Menstrual history: NA; Deliveries: 4 x History of third or fourth degree laceration: yes Weight of largest baby: 7 lbs 8 oz Sexual function Sexually active: yes, pain with intercourse [id number] Do you: Usually experience pressure in the lower abdomen? Yes, quite a bit bothersome (4) Usually experience heaviness or dullness in the pelvic area? No (0) Usually have a bulge or something falling out that you can see or feel in your vaginal area? Yes, quite a bit bothersome (4) Ever have to push on the vagina or around the rectum to have or complete a bowel movement? No (0) Usually experience a feeling of incomplete bladder emptying? Yes, somewhat bothersome (2) Ever have to push up on a bulge in the vaginal area with your fingers to start or complete urination? No (0) Feel you need to strain too hard to have a bowel movement? No (0) Feel you have not completely emptied your bowels at the end of a bowel movement? No (0) Usually lose stool beyond your control if your stool is well formed? No (0) Usually lose stool beyond your control if your stool is loose? No (0) Usually lose gas from the rectum beyond your control? Yes, not at all bothersome (1) Usually have pain when you pass your stool? Yes, moderately bothersome (3) Experience a strong sense of urgency and have to ly to the bathroom to have a bowel movement? No (0) Does part of your bowel ever pass through the rectum and bulge outside during or after a bowel movement? No (0) Usually experience frequent urination? Yes, somewhat bothersome (2) Usually experience urine leakage associated with a feeling of urgency, that is, a strong sensation of needing to go to the bathroom? Yes, somewhat bothersome (2) Usually experience urine leakage related to coughing, sneezing or laughing? Yes, moderately bothersome (3) Usually experience small amounts of urine leakage (that is, drops)? No (0) Usually experience difficulty emptying your bladder? No (0) Usually experience pain or discomfort in the lower abdomen or genital region? Yes, quite a bit bothersome (4) Do you have pain associated with your prolapse (not pressure or fullness) No PAST SURGICAL HISTORY Procedure Laterality Date - COLONOSCOPY 4-5 years ago - EGD 4-5 years ago - L'SCOPE CHOLECYSTECTOMY 2018 - LEXISCAN STRESS TEST 03/21/2020 negative - LIGATE FALLOPIAN TUBE age 23 - at [facility] - PAST SURGICAL HISTORY OF 04/2014 heart cath, old recoreds was WNL PAST MEDICAL HISTORY Diagnosis Date - Anxiety disorder 07/24/2014 - Elevated hemoglobin A1c 07/18/2021 - Environmental allergies 10/06/2018 - Essential hypertension 07/24/2014 - GERD without esophagitis 12/12/2020 - History of SD (myocardial infarction) 07/11/2019 2016 - Lung nodules 2020 CT chest 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 Needs repeat chest CT 03/2021. - Migraine headache - Smoker 2020 - Tension headache 10/06/2018 - Well adult exam 10/06/2018 Last done: 10/06/18 FAMILY HISTORY Problem Relation Age of Onset - Hypertension Mother - Diabetes Mother - other (accident) Father - Diabetes Sister - Diabetes Sister - other (hypertention) Sister - Hypertension Brother - Hypertension Brother - Hypertension Brother - other (broch asthma) Son - other (testical cancer) Son Denies family h/o breast, ovarian, uterine, or colon cancer Current Outpatient Medications Medication Sig - ketoconazole (NIZORAL) 2 % cream Apply to affected area once daily. - nystatin (MYCOSTATIN) powder Apply 1 applic (more content not included)... Normal [facility] UA DIP, URINE (POC)on 2021 BILIRUBIN UA (POCT) Moderate Abnormal Negative [facility] CLARITY UA (POCT) Clear [facility] COLOR UA (POCT) Mal [facility] GLUCOSE UA (POCT) Negative Negative mg/dL [facility] HEMOGLOBIN/BLOOD UA (POCT) Negative Negative [facility] KETONE UA (POCT) 40 mg/dL Abnormal Negative mg/dL [facility] LEUKOCYTES UA (POCT) Negative Negative [facility] NITRITE UA (POCT) Positive Abnormal Negative [facility] PH UA (POCT) 5.0 4.5 - 8.0 [facility] Protein Ql (U) 30 mg/dL Abnormal Negative mg/dL [facility] SPECIFIC GRAVITY UA (POCT) >=1.030 1.005 - 1.030 [facility] UROBILINOGEN UA (POCT) 0.2 E.U./dL Kristin l E.U./dL [facility] CBC W Auto Differential pane l (Bld)on 08-17-2021 Abs Immature Gran 0.03 k/uL <0.10 k/uL [facility] Basophils (Bld) [#/Vol] 0.04 10*3/uL <0.11 k/uL [facility] Basophils/100 WBC (Bld) 0.5 % [facility] Differential cell count method Nom (Bld) Auto [facility] Eosinophils (Bld) [#/Vol] 0.28 10*3/uL <0.46 k/uL [facility] Eosinophils/100 WBC (Bld) 3.3 % [facility] Erythrocyte distribution width (RBC) [Ratio] 12.2 % 11.5 - 15.0 % [facility] Hematocrit (Bld) [Volume fraction] 47.3 % High 36.0 - 46.0 % [facility] Hemoglobin (Bld) [Mass/Vol] 15.2 g/dL 11.5 - 15.5 g/dL [facility] Immature Gran % 0.4 % [facility] Lymphocytes (Bld) [#/Vol] 3.18 10*3/uL 1.00 - 4.00 k/uL [facility] Lymphocytes/100 WBC (Bld) 38.0 % [facility] MCH (RBC) [Entitic mass] 31.6 pg 26. 0 - 34.0 pg [facility] MCHC (RBC) [Mass/Vol] 32.1 g/dL 30.5 - 36.0 g/dL [facility] MCV (RBC) [Entitic vol] 98.3 fL 80.0 - 100.0 fL [facility] Monocytes (Bld) [#/Vol] 0.55 10*3/uL <0.87 k/uL [facility] Monocytes/100 WBC (Bld) 6.6 % [facility] Neutrophils (Bld) [#/Vol] 4.28 10*3/uL 1.45 - 7.50 k/uL [facility] Neutrophils/100 WBC (Bld) 51.2 % [facility] Nucleated RBC (Bld) [#/Vol] 10*3/uL <0.01 k/uL [facility] Nucleated RBC/100 WBC (Bld) [Ratio] 0.0 /100 WBC [facility] Platelet mean volume (Bld) [Entitic vol] 10.6 fL 9.0 - 12.7 fL [facility] Platelets (Bld) [#/Vol] 271 10*3/uL 150 - 400 k/uL [facility] RBC (Bld) [#/Vol] 4.81 10*6/uL 3.90 - 5.2 0 m/uL [facility] WBC (Bld) [#/Vol] 8.36 10*3/uL 3.70 - 11. 00 k/uL [facility] FOLATE SERUMon 08-17-2021 Folate [Mass/Vol] 6.3 ng/mL >4.7 ng/mL [facility] TSH BLDon 08-17-2021 TSH Qn 1.520 m[IU]/L 0.270 - 4.200 mIU/L [facility] Vital Signs Date Time Vital Sign Value Performing Clinician Facility 12-29-2024 13:54-0400 Body temperature 98.6 [degF] Dr. Osvaldo Sue MD Work Phone: 8(242)724-184341 [place] [address] 12-29-2024 13:54-0400 Diastolic blood pressure 90 mm[Hg] Dr. Osvaldo Sue MD Work Phone: 4(061)856-063341 [place] [address] 12-29-2024 13:54-0400 Heart rate 96 /min Dr. Osvaldo Sue MD Work Phone: 4(639)496-469641 [place] [address] 12-29-2024 13:54-0400 Respiratory rate 18 /min Dr. Osvaldo Sue MD Work Phone: 4(812)751-898341 [place] [address] 12-29-2024 13:54-0400 SaO2% (BldA) [Mass fraction] 98 % Dr. Osvaldo Sue MD Work Phone: [facility] 12-29-2024 13:54-0400 Systolic blood pressure 152 mm[Hg] Dr. Osvaldo Sue MD Work Phone: [facility] 12-29-2024 10:58-0400 Body height 154.[address] Osvaldo Sue MD Work Phone: 6(053)249-371241 [place] [address] 12-29-2024 10:58-0400 Body mass index (BMI) [Ratio] 30.2 kg/m2 Dr. Osvaldo Sue MD Work Phone: [facility] 12-29-2024 10:58-0400 Body weight 72.[address] Osvaldo Sue MD Work Phone: [facility] 10-24-2024 11:36-0400 Body mass index (BMI) [Ratio] 29.22 kg/m2 Cheryl Sahu PA-C Work Phone: [facility] 10-24-2024 11:36-0400 Body temperature 97.7 [degF] Cheryl Sahu PA-C Work Phone: [facility] 10-24-2024 11:36-0400 Body weight 75.75 kg Cheryl Sahu PA-C Work Phone: [facility] 10-24-2024 11:36-0400 Diastolic blood pressure 80 mm[Hg] Cheryl Sahu PA-C Work Phone: [facility] 10-24-2024 11:36-0400 Heart rate 77 /min Cheryl Sahu PA-C Work Phone: [facility] 10-24-2024 11:36-0400 Respiratory rate 18 /min Cheryl Sahu PA-C Work Phone: [facility] 10-24-2024 11:36-0400 SaO2% (BldA) [Mass fraction] 97 % Cheryl Sahu PA-C Work Phone: [facility] 10-24-2024 11:36-0400 Systolic blood pressure 122 mm[Hg] Cheryl Sahu PA-C Work Phone: [facility] 09-17-2024 11:42-0400 Body height 161 cm Jerry Romo MD Work Phone: [facility] 09-17-2024 11:42-0400 Body mass index (BMI) [Ratio] 29.4 kg/m2 Jerry Romo MD Work Phone: [facility] 09-17-2024 11:42-0400 Body weight 76.2 kg Jerry Romo MD Work Phone: [facility] 09-17-2024 11:42-0400 Diastolic blood pressure 90 mm[Hg] Jerry Romo MD Work Phone: [facility] 09-17-2024 11:42-0400 Systolic blood pressure 151 mm[Hg] Jerry Romo MD Work Phone: [facility] 08-10-2024 14:11-0400 Body temperature 97.6 [degF] Dr. Osvaldo Sue MD Work Phone: [facility] 08-10-2024 14:11-0400 Diastolic blood pressure 58 mm[Hg] Dr. Osvaldo Sue MD Work Phone: [facility] 08-10-2024 14:11-0400 Heart rate 69 /min Dr. Osvaldo Sue MD Work Phone: 6(046)949-959713 [place] [address] 08-10-2024 14:11-0400 Respiratory rate 16 /min Dr. Osvaldo Sue MD Work Phone: [facility] 08-10-2024 14:11-0400 SaO2% (BldA) [Mass fraction] 97 % Dr. Osvaldo Sue MD Work Phone: [facility] 08-10-2024 14:11-0400 Systolic blood pressure 148 mm[Hg] Dr. Osvaldo Sue MD Work Phone: [facility] 08-10-2024 06:00-0400 Body mass index (BMI) [Ratio] 31.1 kg/m2 Dr. Osvaldo Sue MD Work Phone: 8(730)185-199841 [place] [address] 08-10-2024 06:00-0400 Body weight 74.[address] Osvaldo Sue MD Work Phone: 2(330)465-241241 [place] [address] 08-09-2024 20:39-0400 Body height 154.[address] Osvaldo Sue MD Work Phone: 0(056)279-219441 [place] [address] 08-09-2024 20:17-0400 Body temperature 97.1 [degF] Dr. Osvaldo Sue MD Work Phone: 0(361)984-429641 [place] [address] 08-09-2024 20:17-0400 Diastolic blood pressure 85 mm[Hg] Dr. Osvaldo Sue MD Work Phone: 2(754)578-105913 [place] [address] 08-09-2024 20:17-0400 Heart rate 60 /min Dr. Osvaldo Sue MD Work Phone: 3(923)624-614913 [place] [address] 08-09-2024 20:17-0400 Respiratory rate 16 /min Dr. Osvaldo Sue MD Work Phone: 7(314)751-337513 [place] [address] 08-09-2024 20:17-0400 SaO2% (BldA) [Mass fraction] 95 % Dr. Osvaldo Sue MD Work Phone: 3(434)421-704913 [place] [address] 08-09-2024 20:17-0400 Systolic blood pressure 157 mm[Hg] Dr. Osvaldo Sue MD Work Phone: 8(783)840-367513 [place] [address] 08-09-2024 17:20-0400 Body mass index (BMI) [Ratio] 28.3 kg/m2 Dr. Osvaldo Sue MD Work Phone: 5(597)591-709813 [place] [address] 08-09-2024 17:20-0400 Body weight 74.[address] Osvaldo Sue MD Work Phone: 4(654)756-380013 [place] [address] 08-09-2024 15:45-0400 Body height 162.[address] Osvaldo Sue MD Work Phone: 6(747)320-774513 [place] [address] 05-02-2024 09:25-0500 Body mass index (BMI) [Ratio] 27.67 kg/m2 La Jacques PA-C Work Phone: 3(782)400-558598 [place] [address] 05-02-2024 09:25-0500 Body weight 73.12 kg La Jacques PA-C Work Phone: 4(289)308-574598 [place] [address] 05-02-2024 09:25-0500 Diastolic blood pressure 83 mm[Hg] La BAEZ-Marybeth Work Phone: 8(908)539-456898 [place] [address] 05-02-2024 09:25-0500 Heart rate 49 /min La Guidojoshua PA-C Work Phone: [facility] Comment on above: pt on propanolol 05-02-2024 09:25-0500 SaO2% (BldA) [Mass fraction] 98 % La Jacques PA-C Work Phone: [facility] 05-02-2024 09:25-0500 Systolic blood pressure 136 mm[Hg] Lajason Guidojoshua PA-C Work Phone: [facility] 04-11-2024 08:37-0500 Body mass index (BMI) [Ratio] 27.98 kg/m2 Cheryl Sahu PA-C Work Phone: [facility] 04-11-2024 08:37-0500 Body temperature 97.9 [degF] Cheryl Sahu PA-C Work Phone: [facility] 04-11-2024 08:37-0500 Body weight 73.94 kg Cheryl Sahu PA-C Work Phone: [facility] 04-11-2024 08:37-0500 Diastolic blood pressure 86 mm[Hg] Cheryl Sahu PA-C Work Phone: [facility] 04-11-2024 08:37-0500 Heart rate 60 /min Cheryl Sahu PA-C Work Phone: [facility] 04-11-2024 08:37-0500 Respiratory rate 16 /min Cheryl Sahu PA-C Work Phone: [facility] 04-11-2024 08:37-0500 SaO2% (BldA) [Mass fraction] 98 % Cheryl Sahu PA-C Work Phone: [facility] 04-11-2024 08:37-0500 Systolic blood pressure 122 mm[Hg] Cheryl Sahu PA-C Work Phone: [facility] 03-21-2024 11:30-0500 Body mass index (BMI) [Ratio] 27.98 kg/m2 Cheryl Sahu PA-C Work Phone: [facility] 03-21-2024 11:30-0500 Body temperature 97.3 [degF] Cheryl Sahu PA-C Work Phone: [facility] 03-21-2024 11:30-0500 Body weight 73.94 kg Cheryl Sahu PA-C Work Phone: [facility] 03-21-2024 11:30-0500 Diastolic blood pressure 88 mm[Hg] Cheryl Sahu PA-C Work Phone: [facility] 03-21-2024 11:30-0500 Heart rate 54 /min Cheryl Sahu PA-C Work Phone: [facility] 03-21-2024 11:30-0500 Respiratory rate 16 /min Cheryl Sahu PA-C Work Phone: [facility] 03-21-2024 11:30-0500 SaO2% (BldA) [Mass fraction] 99 % Cherly Sahu PA-C Work Phone: [facility] 03-21-2024 11:30-0500 Systolic blood pressure 138 mm[Hg] Cheryl Sahu PA-C Work Phone: [facility] 03-14-2024 14:12-0500 Body mass index (BMI) [Ratio] 27.81 kg/m2 hCeryl Sahu PA-C Work Phone: [facility] 03-14-2024 14:12-0500 Body temperature 97 [degF] Cheryl Sahu PA-C Work Phone: [facility] 03-14-2024 14:12-0500 Body weight 73.48 kg Cheryl Sahu PA-C Work Phone: [facility] 03-14-2024 14:12-0500 Diastolic blood pressure 78 mm[Hg] Cheryl Sahu PA-C Work Phone: [facility] 03-14-2024 14:12-0500 Heart rate 61 /min Cheryl Sahu PA-C Work Phone: [facility] 03-14-2024 14:12-0500 Respiratory rate 16 /min Cheryl Sahu PA-C Work Phone: [facility] 03-14-2024 14:12-0500 SaO2% (BldA) [Mass fraction] 99 % Cheryl Sahu PA-C Work Phone: [facility] 03-14-2024 14:12-0500 Systolic blood pressure 130 mm[Hg] Cheryl Sahu PA-C Work Phone: [facility] 02-29-2024 10:44-0500 Diastolic blood pressure 63 mm[Hg] Cheryl Sahu PA-C Work Phone: [facility] 02-29-2024 10:44-0500 Heart rate 92 /min Cheryl Sahu PA-C Work Phone: [facility] 02-29-2024 10:44-0500 Systolic blood pressure 146 mm[Hg] Cheryl Sahu PA-C Work Phone: [facility] 02-29-2024 09:41-0500 Body height 162.6 cm Cheryl Sahu PA-C Work Phone: [facility] 02-29-2024 09:41-0500 Body mass index (BMI) [Ratio] 27.7 kg/m2 Cheryl Sahu PA-C Work Phone: [facility] 02-29-2024 09:41-0500 Body temperature 98.4 [degF] Cheryl Sahu PA-C Work Phone: [facility] 02-29-2024 09:41-0500 Body weight 73.21 kg Cheryl Sahu PA-C Work Phone: [facility] 02-29-2024 09:41-0500 Respiratory rate 16 /min Cheryl Sahu PA-C Work Phone: [facility] 02-29-2024 09:41-0500 SaO2% (BldA) [Mass fraction] 100 % Cheryl Sahu PA-C Work Phone: [facility] 01-19-2024 14:40-0400 Body mass index (BMI) [Ratio] 28.37 kg/m2 Mel Sullivan HR RECEPTIONIST.RN PSYCH Work Phone: [facility] 01-19-2024 14:40-0400 Body temperature 97.11 [degF] Mel Sullivan HR RECEPTIONIST.RN PSYCH Work Phone: [facility] 01-19-2024 14:40-0400 Body weight 73.8 kg Mel Sullivan HR RECEPTIONIST.RN PSYCH Work Phone: [facility] 01-19-2024 14:40-0400 Diastolic blood pressure 94 mm[Hg] Mel Sullivan HR RECEPTIONIST.RN PSYCH Work Phone: [facility] 01-19-2024 14:40-0400 Heart rate 95 /min Mel Sullivan HR RECEPTIONIST.RN PSYCH Work Phone: [facility] 01-19-2024 14:40-0400 Respiratory rate 18 /min Mel Sullivan HR RECEPTIONIST.RN PSYCH Work Phone: [facility] 01-19-2024 14:40-0400 SaO2% (BldA) [Mass fraction] 99 % Mel Sullivan HR RECEPTIONIST.RN PSYCH Work Phone: [facility] 01-19-2024 14:40-0400 Systolic blood pressure 143 mm[Hg] Mel Sullivan HR RECEPTIONIST.RN PSYCH Work Phone: [facility] 07-23-2022 09:53-0400 Body temperature 97.2 [degF] Cheryl BAEZ-C Work Phone: [facility] 07-23-2022 09:53-0400 Body weight 70.31 kg Cheryl Sahu PA-C Work Phone: [facility] 07-23-2022 09:53-0400 Diastolic blood pressure 82 mm[Hg] Cheryl Sahu PA-C Work Phone: [facility] 07-23-2022 09:53-0400 Heart rate 70 /min Cheryl Sahu PA-C Work Phone: [facility] 07-23-2022 09:53-0400 Respiratory rate 18 /min Cheryl Sahu PA-C Work Phone: [facility] 07-23-2022 09:53-0400 Systolic blood pressure 122 mm[Hg] Cheryl Sahu PA-C Work Phone: [facility] 07-02-2022 08:14-0400 Body temperature 97.3 [degF] Cheryl Sahu PA-C Work Phone: [facility] 07-02-2022 08:14-0400 Diastolic blood pressure 86 mm[Hg] Cheryl Sahu PA-C Work Phone: [facility] 07-02-2022 08:14-0400 Heart rate 72 /min Cherylaretha Sahu PA-C Work Phone: [facility] 07-02-2022 08:14-0400 Respiratory rate 16 /min Cheryl Luis Alberto PA-C Work Phone: [facility] 07-02-2022 08:14-0400 Systolic blood pressure 122 mm[Hg] Cheryl Sahu PA-C Work Phone: [facility] 06-08-2022 10:08-0500 Body temperature 98.71 [degF] Darlyn Martinez APRN.RN PSYCH Work Phone: [facility] 06-08-2022 10:08-0500 Body weight 71.85 kg Darlyn Martinez APRN.RN PSYCH Work Phone: [facility] 06-08-2022 10:08-0500 Diastolic blood pressure 88 mm[Hg] Darlyn Martinez APRN.RN PSYCH Work Phone: [facility] 06-08-2022 10:08-0500 Heart rate 60 /min Darlyn Martinez APRN.RN PSYCH Work Phone: [facility] 06-08-2022 10:08-0500 Respiratory rate 18 /min Darlyn Martinez APRN.RN PSYCH Work Phone: [facility] 06-08-2022 10:08-0500 SaO2% (BldA) [Mass fraction] 97 % Darlyn Martinez APRN.RN PSYCH Work Phone: [facility] 06-08-2022 10:08-0500 Systolic blood pressure 148 mm[Hg] Darlyn Martinez APRN.RN PSYCH Work Phone: [facility] 06-04-2022 11:11-0500 Body height 161.3 cm Osvaldo Sue MD Work Phone: [facility] 06-04-2022 11:11-0500 Body weight 70.76 kg Osvaldo Sue MD Work Phone: [facility] 06-04-2022 11:11-0500 Diastolic blood pressure 76 mm[Hg] Osvaldo Sue MD Work Phone: [facility] 06-04-2022 11:11-0500 Heart rate 72 /min Osvaldo Sue MD Work Phone: [facility] 06-04-2022 11:11-0500 Respiratory rate 16 /min Osvaldo Sue MD Work Phone: [facility] 06-04-2022 11:11-0500 Systolic blood pressure 124 mm[Hg] Osvaldo Sue MD Work Phone: [facility] 01-06-2022 07:57-0400 Body temperature 97.7 [degF] Osvaldo Sue MD Work Phone: [facility] 01-06-2022 07:57-0400 Body weight 71.22 kg Osvaldo Sue MD Work Phone: [facility] 01-06-2022 07:57-0400 Diastolic blood pressure 86 mm[Hg] Osvaldo Sue MD Work Phone: [facility] 01-06-2022 07:57-0400 Heart rate 78 /min Osvaldo Sue MD Work Phone: [facility] 01-06-2022 07:57-0400 Respiratory rate 16 /min Osvaldo Sue MD Work Phone: [facility] 01-06-2022 07:57-0400 Systolic blood pressure 150 mm[Hg] Osvaldo Sue MD Work Phone: [facility] 11-17-2021 08:00-0400 Diastolic blood pressure 90 mm[Hg] Umm Medina PT Work Phone: [facility] 11-17-2021 08:00-0400 Systolic blood pressure 136 mm[Hg] Umm Medina PT Work Phone: [facility] 11-13-2021 08:19-0400 Body weight 70.31 kg Claire Elizabeth HR RECEPTIONIST.RN PSYCH Work Phone: [facility] 11-13-2021 08:19-0400 Diastolic blood pressure 68 mm[Hg] Claire Medford HR RECEPTIONIST.RN PSYCH Work Phone: [facility] 11-13-2021 08:19-0400 Systolic blood pressure 150 mm[Hg] Claire Medford HR RECEPTIONIST.RN PSYCH Work Phone: [facility] 10-06-2021 11:03-0400 Body height 165.1 cm Caitlyn Fortune MD Work Phone: [facility] 10-06-2021 11:03-0400 Body weight 72.58 kg Caitlyn Fortune MD Work Phone: [facility] 10-06-2021 11:03-0400 Diastolic blood pressure 76 mm[Hg] Caitlyn Fortune MD Work Phone: [facility] 10-06-2021 11:03-0400 Systolic blood pressure 122 mm[Hg] Caitlyn Fortune MD Work Phone: [facility] 08-17-2021 09:57-0400 Body temperature 97.81 [degF] Cheryl Sahu PA-C Work Phone: [facility] 08-17-2021 09:57-0400 Body weight 73.03 kg Cheryl Sahu PA-C Work Phone: [facility] 08-17-2021 09:57-0400 Diastolic blood pressure 80 mm[Hg] Cheryl Sahu PA-C Work Phone: [facility] 08-17-2021 09:57-0400 Heart rate 64 /min Cheryl Sahu PA-C Work Phone: [facility] 08-17-2021 09:57-0400 Respiratory rate 16 /min Cheryl BAEZ-C Work Phone: [facility] 08-17-2021 09:57-0400 Systolic blood pressure 108 mm[Hg] Cheryl Sahu PA-C Work Phone: [facility] Encounters Encounter Date Encounter Type Care Provider Facility Start: 01-09-2025 End: 01-09-2025 ambulatory ARETHA PATTERSON Facility:[facility] Start: 12-29-2024 End: 12-29-2024 Emergency department patient visit Dr. Osvaldo Sue MD Work Phone: -Emergency Department Work Phone: Start: 12-26-2024 End: 12-26-2024 ambulatory MONICA MEANS Facility:[facility] Start: 12-24-2024 End: 12-24-2024 Emergency department patient visit OSVALDO CHICAS [facility] Start: 12-18-2024 End: 12-18-2024 Chart abstracting Annabella Latham MA [facility] [place] Comment on above: ext document (CXR) Start: 12-17-2024 End: 12-17-2024 Emergency department patient visit OSVALDO CHICAS [facility] Start: 12-17-2024 End: 12-18-2024 Telephone encounter Osvaldo Sue MD Work Phone: Family [facility] [place] Comment on above: Patient Update; Medi cation Request Start: 10-30-2024 End: 12-12-2024 ambulatory CHERYL SAHU [facility] Start: 10-26-2024 End: 10-26-2024 Follow-up encounter Cheryl Sahu PA-C Work Phone: [facility] [place] Start: 10-24-2024 End: 10-24-2024 Subsequent hospital visit by physician [facility] Work Phone: Radiology Comment on above: Acute bilateral low back pain with bilateral sciatica [M54.42, M54.41] Start: 10-24-2024 End: 10-24-2024 Office outpatient visit 25 minutes Cheryl Sahu PA-C Work Phone: [facility] [place] Comment on above: Acute bilateral low back pain with bilateral sciatica (Primary Dx); Radiculopathy of lumbar region; Chronic midline low back pain with bilateral sciatica; Urinary incontinence, unspecified type; Plantar fasciitis Start: 10-24-2024 End: 10-24-2024 ambulatory CHERYL SAHU Facility:[facility] Start: 10-23-2024 End: 10-23-2024 ambulatory Osvaldo Sue MD Work Phone: [facility] [place] Comment on above: Leg Swelling Start: 09-29-2024 End: 10-01-2024 Refill Osvaldo Sue MD Work Phone: [facility] [place] Comment on above: Refill Request Start: 09-21-2024 End: 11-21-2024 Follow-up encounter Freda Mahajan MD Work Phone: OB/Gynecology Start: 09-17-2024 End: 09-17-2024 Patient encounter procedure Jerry Romo MD Work Phone: OB/Gynecology Comment on above: Encounter for gyneco logical examination (general) (routine) without abnormal findings (Primary Dx); Encounter for screening for human papillomavirus (HPV); Pap smear for cervical cancer screening; Encounter for screening mammogram for breast cancer; Cysts of both ovaries Start: 09-17-2024 End: 09-17-2024 Patient encounter status Jerry Romo MD Work Phone: [facility] Start: 09-17-2024 End: 09-17-2024 ambulatory JERRY ROMO Facility:[facility] Start: 09-17-2024 Encounter for gynecological examination (general) (routine) without abnormal findings JERRY ROMO [facility] Start: 09-03-2024 End: 09-03-2024 Refill Osvaldo Sue MD Work Phone: [facility] [place] Comment on above: Refill Request Start: 08-29-2024 End: 08-29-2024 Follow-up encounter Cheryl Sahu PA-C Work Phone: [facility] [place] Start: 08-28-2024 End: 09-03-2024 Refill La Jacques PA-C Work Phone: Neurology Comment on above: Refill Request Start: 08-28-2024 ambulatory CHERYL SAHU Facili ty:[facility] Start: 08-28-2024 End: 08-28-2024 Subsequent hospital visit by physician [facility] Work Phone: Radiology Comment on above: Ovarian cyst, bilate ral [N83.201, N83.202] Start: 08-22-2024 End: 08-22-2024 ambulatory CHERYL SAHU Facility:[facility] Start: 08-20-2024 End: 08-20-2024 ambulatory Osvaldo Sue MD Work Phone: [facility] [place] Comment on above: Vaginal Problem Start: 08-13-2024 End: 08-13-2024 Chart abstracting Dulce Maria Martinez MA [facility] [place] Comment on above: Hospital F/U ([facility] ) Start: 08-10-2024 End: 08-10-2024 Chart abstracting Osvaldo Sue MD Work Phone: [facility] [place] Comment on above: ER Discharge Summary (H&P) Start: 08-10-2024 Non-patient / Non-visit Dr. Austin Levy[facility] Work Phone: Start: 08-09-2024 End: 08-10-2024 Evaluation and management of inpatient Dr. Len Lafleur DO -Medical Surgical 3 Work Phone: Start: 08-09-2024 End: 08-10-2024 ambulatory Osvaldo Sue MD Work Phone: [facility] [place] Comment on above: Vomiting Start: 08-07-2024 End: 08-07-2024 Chart abstracting Osvaldo Sue MD Work Phone: [facility] [place] Comment on above: Outside Lab Results (CT scan/) Start: 08-07-2024 End: 08-07-2024 Emergency department patient visit OSVALDO SUE [facility] Start: 08-05-2024 End: 08-05-2024 Emergency department patient visit SADNIP AG [facility] Start: 07-09-2024 End: 07-09-2024 Chart abstracting Dulce Maria Martinez MA [facility] [place] Comment on above: Results (Outside lab s /) Start: 06-22-2024 End: 06-22-2024 Chart abstracting Osvaldo Sue MD Work Phone: [facility] [place] Comment on above: Outside Imaging Start: 06-21-2024 End: 06-21-2024 ambulatory Osvaldo Sue MD Work Phone: [facility] [place] Comment on above: Chest Pain Start: 06-21-2024 End: 06-21-2024 Emergency department patient visit RANDY Gagan QUILES [facility] Start: 06-05-2024 End: 07-06-2024 ambulatory Osvaldo Sue MD Work Phone: [facility] [place] Start: 05-14-2024 End: 05-15-2024 Telephone encounter La Jacques PA-C Work Phone: Neurology Comment on above: Results Start: 05-09-2024 End: 05-09-2024 ambulatory LA JACQUES Facility:[facility] Start: 05-09-2024 End: 05-09-2024 Subsequent hospital visit by physician [employer] [employer] [facility] (I-Stat/1.5t) Work Phone: Radiology Comment on above: Chronic daily headac he [R51.9] Start: 05-08-2024 End: 05-09-2024 Telephone encounter Osvaldo Sue MD Work Phone: [facility] [place] Comment on above: Patient Question Start: 05-02-2024 End: 05-02-2024 Patient encounter procedure La Jacques PA-C Work Phone: Neurology Comment on above: Cervicogenic headach e (Primary Dx); Chronic daily headache; Spinal stenosis of cervical region; Gait abnormality Start: 05-02-2024 End: 05-02-2024 ambulatory LA JOSHUA Facility:[facility] Start: 04-23-2024 End: 04-23-2024 ambulatory Osvaldo Sue MD Work Phone: [facility] Comment on above: Derm Problem Start: 04-11-2024 End: 04-11-2024 ambulatory CHERYL SAHU Facility:[facility] Start: 04-11-2024 End: 04-11-2024 Patient encounter procedure Cheryl Sahu PA-C Work Phone: [facility] [place] Comment on above: Essential hypertensi on (Primary Dx); Chronic daily headache; Metabolic dysfunction-associated steatohepatitis (MASH); Situational depression; Generalized anxiety disorder Start: 04-05-2024 End: 04-09-2024 Telephone encounter Cheryl Sahu PA-C Work Phone: [facility] [place] Comment on above: Results Start: 04-03-2024 End: 04-03-2024 ambulatory Osvaldo Sue Facility:[facility] Start: 03-21-2024 End: 03-21-2024 ambulatory CHERYL SAHU Facility:[facility] Start: 03-21-2024 End: 03-21-2024 Patient encounter procedure Cheryl Sahu PA-C Work Phone: [facility] [place] Comment on above: Laceration of ear ca nal, initial encounter (Primary Dx) Start: 03-15-2024 End: 03-15-2024 Telephone encounter Cheryl Sahu PA-C Work Phone: [facility] [place] Comment on above: Results Start: 03-14-2024 End: 03-14-2024 ambulatory CHERYL SAHU Facility:[facility] Start: 03-14-2024 End: 03-14-2024 Patient encounter procedure Cheryl Sahu PA-C Work Phone: [facility] [place] Comment on above: Essential hypertensi on (Primary Dx); Mixed stress and urge urinary incontinence; Elevated hemoglobin A1c; Elevated liver enzymes; Situational depression; Generalized anxiety disorder; Tension headache; Bacterial sinusitis; Encounter for immunization Start: 03-02-2024 End: 2024 Telephone encounter Monica Means APRN.RN PSYCH Work Phone: [facility] [place] Comment on above: Results Start: 02-29-2024 End: 02-29-2024 ambulatory OSVALDO SUE Facility:[facility] Start: 02-29-2024 End: 02-29-2024 Patient encounter procedure Cheryl Sahu PA-C Work Phone: [facility] [place] Comment on above: Hypertensive urgency (Primary Dx); Essential hypertension; Aneurysm of left subclavian artery (HCC); Elevated hemoglobin A1c; Tension headache; Migraine without status migrainosus, not intractable, unspecified migraine type; Anemia, unspecified type Start: 02-29-2024 End: 02-29-2024 ambulatory OSVALDO SUE Facility:[facility] Start: 01-19-2024 End: 01-19-2024 Subsequent hospital visit by physician Patrick [facility] [place] Work Phone: Radiology Comment on above: Right elbow pain [M2 5.521] Start: 01-19-2024 End: 01-19-2024 ambulatory OSVALDO SUE Facility:[facility] Start: 01-19-2024 End: 01-19-2024 Patient encounter procedure Mel Sullivan APRN.RN PSYCH Work Phone: [facility] Comment on above: Right forearm pain ( Primary Dx); Right elbow pain Start: 07-06-2023 ambulatory Osvaldo blackwell MD Work Phone: [facility] [place] Start: 06-09-2023 Chart abstracting Osvaldo benjamin MD Work Phone: [facility] [place] Comment on above: Outside Migv-Wlo-GRT Ordered Start: 06-07-2023 Chart abstracting Osvaldo benjamin MD Work Phone: [facility] [place] Comment on above: Outside Bkxw-Ovt-EOG Ordered Start: 06-06-2023 Chart abstracting Osvaldo benjamin MD Work Phone: [facility] [place] Comment on above: Outside Urve-Wgk-PHU Ordered Start: 06-02-2023 Chart abstracting Osvaldo benjamin MD Work Phone: [facility] [place] Comment on above: Outside Dlrp-Kmj-SOC Ordered Start: 06-01-2023 ambulatory Osvaldo blackwell MD Work Phone: [facility] [place] Comment on above: Vomiting Opened In Error Start: 06-01-2023 Chart abstracting Osvaldo benjamin MD Work Phone: [facility] [place] Comment on above: Outside Imaging Start: 05-17-2023 Telephone encounter Osvaldo Sue MD Work Phone: [facility] [place] Comment on above: requesting medicatio n Start: 03-14-2023 Refill Osvaldo blackwell MD Work Phone: [facility] [place] Comment on above: Refill Request Start: 07-23-2022 End: 07-23-2022 Patient encounter procedure Cheryl Sahu PA-C Work Phone: [facility] [place] Comment on above: Chest pain, unspecif ied type (Primary Dx); Aneurysm of left subclavian artery (HCC); Lung nodules; Essential hypertension; Tension headache; Migraine without status migrainosus, not intractable, unspecified migraine type; Former smoker; GERD without esophagitis Start: 07-21-2022 ambulatory Osvaldo blackwell MD Work Phone: [facility] [place] Start: 07-16-2022 Patient Outreach Breann Martinez [facility] [place] Comment on above: Transition Of Care ( 07/15/22) Start: 07-02-2022 End: 07-02-2022 Patient encounter procedure Cheryl Sahu PA-C Work Phone: [facility] [place] Comment on above: Situational depressi on (Primary Dx); Generalized anxiety disorder Start: 06-08-2022 End: 06-08-2022 Subsequent hospital visit by physician Patrick [facility] [place] Work Phone: Radiology Comment on above: Acute pain of left s houlder [M25.512] Start: 06-08-2022 End: 06-08-2022 Patient encounter procedure Darlyn Martinez RN PSYCH Work Phone: [facility] Comment on above: Acute pain of left s rajatulder (Primary Dx) Start: 06-06-2022 Telephone encounter Osvaldo Sue MD Work Phone: [facility] [place] Comment on above: Results Start: 06-04-2022 End: 06-04-2022 Patient encounter procedure Osvaldo Sue MD Work Phone: [facility] [place] Comment on above: Well adult exam (Iman noemi Dx); Essential hypertension; Elevated hemoglobin A1c; GERD without esophagitis; Tension headache; Migraine without status migrainosus, not intractable, unspecified migraine type; Generalized anxiety disorder; Situational depression; History of SD (myocardial infarction); Fatty liver; Anemia, unspecified type; Midline thoracic back pain, unspecified chronicity; Lumbar pain; Medication management; Screening for colon cancer; Smoker; Bronchitis Start: 06-04-2022 End: 06-04-2022 Patient encounter status Osvaldo Sue MD Work Phone: [facility] [place] Start: 05-14-2022 Refill Osvaldo blackwell MD Work Phone: [facility] Comment on above: Refill Request Start: 04-16-2022 Telephone encounter Osvaldo Sue MD Work Phone: [facility] [place] Comment on above: Medication Problem Start: 01-29-2022 Refill Osvaldo blackwell MD Work Phone: [facility] [place] Comment on above: Refill Request Start: 01-07-2022 Telephone encounter Cheryl العراقي PA-C Work Phone: [facility] [place] Comment on above: Results Start: 01-06-2022 Telephone encounter Osvaldo Sue MD Work Phone: [facility] [place] Comment on above: Results Start: 01-06-2022 End: 01-06-2022 Subsequent hospital visit by physician Patrick [facility] [place] Work Phone: Radiology Comment on above: Cough, unspecified t ype [R05.9] Start: 01-06-2022 End: 01-06-2022 Patient encounter procedure Osvaldo Sue MD Work Phone: [facility] Comment on above: Viral illness (Prima ry Dx); Cough, unspecified type; Mold exposure; Suspected COVID-19 virus infection; Smoker Start: 01-04-2022 Refill Osvaldo blackwell MD Work Phone: [facility] Comment on above: Refill Request Patient Question Start: 12-08-2021 Telephone encounter Osvaldo Sue MD Work Phone: [facility] [place] Comment on above: Headache Start: 11-17-2021 End: 11-17-2021 ambulatory Umm Medina PT Work Phone: [facility] Comment on above: Levator spasm (Prima ry Dx); Cystocele, midline; Mixed stress and urge urinary incontinence Start: 11-16-2021 Telephone encounter Claire andersen HR RECEPTIONIST.RN PSYCH Work Phone: OB/Gynecology Comment on above: Results Start: 11-13-2021 End: 11-13-2021 Patient encounter procedure Claire Johnson HR RECEPTIONIST.RN PSYCH Work Phone: OB/Gynecology Comment on above: Vaginal pain (Primar y Dx) Start: 11-12-2021 Orders Only Harriet Henryt s HR RECEPTIONIST.CNM Work Phone: OB/Gynecology Comment on above: Ovarian cyst, bilate ral (Primary Dx) Results Start: 11-11-2021 End: 11-11-2021 Patient encounter procedure Nichole Yu MD Work Phone: OB/Gynecology Comment on above: Cysts of both ovarie s (Primary Dx) Start: 10-23-2021 Telephone encounter Osvaldo Sue MD Work Phone: [facility] Comment on above: Patient Update Start: 10-06-2021 End: 10-06-2021 Patient encounter procedure Caitlyn Fortune MD Work Phone: Urogynecology Comment on above: Levator spasm (Prima ry Dx); Cystocele, midline; Mixed stress and urge urinary incontinence; Bilateral ovarian cysts; Acute cystitis without hematuria; Tinea cruris Start: 08-27-2021 Refill Osvaldo blackwell MD Work Phone: [facility] Comment on above: Refill Request Start: 08-20-2021 Telephone encounter Harriet waddell HR RECEPTIONIST.CNM Work Phone: OB/Gynecology Comment on above: Results Start: 08-18-2021 Telephone encounter Cheryl العراقي PA-C Work Phone: [facility] Comment on above: Results Start: 08-17-2021 End: 08-17-2021 Patient encounter procedure Cheryl Sahu PA-C Work Phone: [facility] Comment on above: Hair loss (Primary D x); Lung nodules; Fatty liver; Hypercalcemia; Essential hypertension; Elevated hemoglobin A1c; GERD without esophagitis; Anemia, unspecified type; Generalized anxiety disorder; Smoker Start: 2020 Patient encounter status Mark Anthony Sahu PA-C Work Phone: [facility] Work Phone: Procedures Date Procedure Procedure Detail Performing Clinician Start: 12-29-2024 Urnls dip stick/tabl et reagent auto microscopy Dr. Osvaldo Sue MD Work Phone: Start: 12-29-[address] Osvaldo Sue MD Work Phone: Start: 12-29-2024 Ct abdomen & pelvis w/contrast material Dr. Osvaldo Sue MD Work Phone: Start: 12-17-2024 Urinalysis RANDY LOUIS Comment on above: Result Comment: URIN ALYSIS Performed By: [id number] #### [facility],[address] [place] [address] Start: 08-28-2024 Us transvaginal Cheryl Sahu PA-C Work Phone: Start: 08-10-[address] Osvaldo Sue MD Work Phone: Start: 08-10-2024 Serum inorganic phos phate measurement Dr. Osvaldo Sue MD Work Phone: Start: 08-09-2024 Computed tomography of abdomen and pelvis with intravenous contrast Dr. Osvaldo Sue MD Work Phone: Start: 08-09-2024 Urnls dip stick/tabl et reagent auto microscopy Dr. Osvaldo Sue MD Work Phone: Start: 08-09-[address] Osvaldo Sue MD Work Phone: Start: 08-07-2024 Urinalysis RANDY ELDRIDGES Comment on above: Result Comment: URIN ALYSIS Performed By: [id number] ####[facility],[address] [place] [address] Start: 08-05-2024 Urinalysis RANDY ELDRIDGES Comment on above: Result Comment: URIN ALYSIS Performed By: [id number] ####[facility],[address] [place] [address] Start: 05-09-2024 Mri brain brain stem w/o contrast material La Jacques PA-C Work Phone: Start: 02-29-2024 Ecg routine ecg w/le ast 12 lds i&r only [facility] Provider Start: 02-29-2024 Lipid 1996 panel - S ag or Plasma Monica Means HR RECEPTIONIST.RN PSYCH Work Phone: Start: 01-19-2024 Radex elbow complete minimum 3 views Mel Sullivan HR RECEPTIONIST.RN PSYCH Work Phone: Start: 06-08-2022 Radex shoulder compl ete minimum 2 views Darlyn Martinez HR RECEPTIONIST.RN PSYCH Work Phone: Start: 06-04-2022 Lipid 1996 panel - S ag or Plasma Osvaldo Sue MD Work Phone: Start: 01-06-2022 Radiologic exam ches t 2 views Osvaldo Sue MD Work Phone: Start: 10-06-2021 Urnls dip stick/tabl et rgnt auto w/o microscopy Caitlyn Fortune MD Work Phone: Start: 08-17-2021 Adult depression scr eening assessment Cheryl Sahu PA-C Work Phone: Plan of Treatment Date Care Activity Detail Author Start: 03-14-2034 Urine microalbumin profile DTaP,Tdap,Td Vaccine (3 - Td or Tdap) [facility] Start: 06-02-2032 PNEUMOCOCCAL (1 - PCV) PNEUMOCOCCAL (1 - PCV) [facility] Comment on above: Postponed from 03/05 (Postponed To Appropriate Date) Start: 09-17-2029 Screening for malign ant neoplasm of cervix Cervical Cancer Screening [facility] Start: 02-28-2029 Lipid panel Lipid Screening [facility] Start: 06-05-2027 Lipid 1996 panel - S ag or Plasma Lipid Screening [facility] Start: 06-05-2027 Lipid panel Lipid Screening [facility] Start: 06-05-2027 LIPID SCREEN LIPID SCREEN [facility] Start: 02-28-2027 Diabetes Screening Diabetes Screenin [facility] Start: 08-15-2026 LIPID SCREEN LIPID SCREEN [facility] Start: 10-24-2025 Annual PCP Team Uranium Processing Supervisor saurabh Disease Visit Annual PCP Team Chronic Disease Visit [facility] Start: 09-18-2025 End: 09-18-2025 Patient encounter procedure Radiology Comment on above: Cysts of both ovarie s [N83.201, N83.202] Annual Start: 09-17-2025 End: 10-17-2025 US Pelvis transvaginal US FEMALE PELVIS TRANSVAG Radiology Routine Cysts of both ovaries Expected: 09/17/2025, Expires: 10/17/2025 [facility] Comment on above: Expected: 09/17/2025 , Expires: 10/17/2025 Start: 08-22-2025 Annual PCP Team Uranium Processing Supervisor saurabh Disease Visit Annual PCP Team Chronic Disease Visit [facility] Start: 06-04-2025 DIABETES SCREEN DIABETES SCREEN [facility] Start: 06-04-2025 Diabetes Screening Diabetes Screenin g [facility] Start: 04-11-2025 Annual PCP Team Uranium Processing Supervisor saurabh Disease Visit Annual PCP Team Chronic Disease Visit [facility] Start: 12-18-2025 Annual PCP Team Uranium Processing Supervisor saurabh Disease Visit Annual PCP Team Chronic Disease Visit [facility] Start: 03-14-2025 Annual PCP Team Uranium Processing Supervisor saurabh Disease Visit Annual PCP Team Chronic Disease Visit [facility] Start: 03-14-2025 Covid-19 Vaccine ( season) Covid-19 Vaccine ( season) [facility] Comment on above: Postponed from 12/03 (Declined at this time) Start: 02-28-2025 Annual PCP Team Uranium Processing Supervisor saurabh Disease Visit Annual PCP Team Chronic Disease Visit [facility] Start: 01-01-2025 End: 01-01-2025 Patient encounter procedure 01/01/2025 12:20 PM EDT Office Visit [facility] [place] [address] [place], [place] [id number] Cheryl Sahu PA-C [address] [place], [place] [phone] [facility] ER f/u bladder infection. Patient given 10 days of ATB and wants to be seen after that--Rescheduled. SeeTE 12/17. [facility] Comment on above: [facility] ER f/u bladder infection. Patient given 10 days of ATB and wants to be seen after that--Rescheduled. SeeTE 12/17. Start: 12-29-2024 [facility] Start: 12-03-2024 Influenza vaccination [facility] Start: 10-29-2024 End: 10-29-2024 Patient encounter procedure [facility] Jesus aMnuel Valdez Comment on above: physical ALIA SCREENING W EMELIA Start: 10-24-2024 End: 01-23-2025 Bacteria identified in Urine by Culture [facility] Comment on above: Expected: 10/24/2024 , Expires: 01/23/2025 Start: 10-24-2024 End: 10-24-2024 Patient encounter procedure 10/24/2024 11:40 AM EDT Office Visit [facility] [place] [address] [place], [place] [id number] Cheryl Sahu PA-C [address] [place], [place] [phone] Bilateral leg swelling. See triage. [facility] [place] Comment on above: Bilateral leg swelli ng. See triage. Start: 10-12-2024 End: 10-12-2024 Patient encounter procedure Neurology Comment on above: 3 month follow up 3 month follow up RICK , Gabapentin 300 BID Start: 10-09-2024 End: 10-09-2024 Patient encounter procedure 10/09/2024 8:20 AM EDT Office Visit [facility] [place] [address] [place], [place] [phone] Cheryl Sahu PA-C [address] [place], [place] [phone] physical [facility] [place] Comment on above: physical Start: 10-01-2024 Influenza vaccination Influenza Vacc ine (#1) [facility] Comment on above: Postponed from 12/03 (Declined at this time) Start: 09-21-2024 End: 09-21-2024 Patient encounter procedure 09/21/2024 1:30 PM EDT Appointment [facility] [address] [place] [address] Encounter for gynecological examination (general) (routine) without abnormal findings [Z01.419]; Encounter for screening mammogram for breast cancer [Z12.31] Mammogram Comment on above: Encounter for gyneco logical examination (general) (routine) without abnormal findings [Z01.419]; Encounter for screening mammogram for breast cancer [Z12.31] Start: 09-17-2024 End: 09-17-2024 Patient encounter procedure 09/17/2024 11:10 AM EDT Office Visit OB/Gynecology [address] [place], [place] [phone] Jerry Romo MD [address] [facility] [place] [address] Ovarian cyst, bilateral [N83.201, N83.202] OB/Gynecology Comment on above: Ovarian cyst, bilate ral [N83.201, N83.202] Start: 08-22-2024 End: 08-22-2024 Patient encounter procedure 08/22/2024 9:00 AM EDT Office Visit [facility] [place] [address] [place] [address] Cheryl Sahu PA-C [address] [place] [address] [facility] Follow up D/C 08/10/2024; Bladder Infection; Now has vaginal itching [facility] [place] Comment on above: [facility] Follow up D/C 08/10/2024; Bladder Infection; Now has vaginal itching Start: 08-15-2024 DIABETES SCREEN DIABETES SCREEN [facility] Start: 08-10-2024 Patient discharge [facility] Start: 08-09-2024 Application of intermittent pneumatic compression device [facility] Start: 08-09-2024 Following clinical pathway protocol [facility] Start: 08-09-2024 Aspiration precautions [facility] Start: 08-09-2024 Assessment of risk o f venous thromboembolism [facility] Start: 08-09-2024 Enteric precautions [facility] Start: 08-09-2024 Incentive spirometry [facility] Start: 08-09-2024 Insertion of cathete r into peripheral vein [facility] Start: 08-09-2024 Measuring intake and output [facility] Start: 08-09-2024 Oxygen therapy [facility] Start: 08-09-2024 Providing care accor ding to standard [facility] Start: 08-09-2024 Provision of activit y privileges [facility] Start: 08-09-2024 Referral to service [facility] Start: 08-09-2024 [facility] Start: 08-09-2024 Clostridioides diffi cile DNA [Presence] in Unspecified specimen by RONNIE with probe detection [facility] Start: 08-09-2024 Lactoferrin [Presenc e] in Stool by Immunoassay [facility] Start: 08-09-2024 Verification routine [facility] Start: 08-09-2024 Admission procedure [facility] Start: 08-09-2024 Hospital admission, emergency, from emergency room, medical nature [facility] Start: 08-03-2024 End: 08-03-2024 Patient encounter procedure 08/03/2024 10:20 AM EDT Office Visit Neurology [address] [place] [address] Cain Molina Jr., MD [address] [place], [place] [address] 3 month follow up Neurology Comment on above: 3 month follow up Start: 06-06-2024 End: 06-06-2024 Patient encounter procedure 06/06/2024 12:40 PM EST Office Visit [facility] [place] [address] [place] [address] Cheryl Sahu PA-C [address] [place], [place] [phone] 1 month med follow up Family [facility] [place] Comment on above: 1 month med follow u p Start: 05-15-2024 HPV TESTING HPV TESTING [facility] Start: 05-15-2024 PAP TESTING PAP TESTING [facility] Start: 05-15-2024 Screening for malign ant neoplasm of cervix [facility] Start: 05-09-2024 End: 05-09-2024 Patient encounter procedure Radiology Comment on above: Spinal stenosis of c ervical region [M48.02]; Gait abnormality [R26.9] Chronic daily headac he [R51.9] Start: 05-07-2024 End: 05-07-2024 Patient encounter procedure 05/07/2024 11:40 AM EST Office Visit Family [facility] [address] [place] [address] Cheryl Sahu PA-C [address] [place], [place] [address] med f/u Family [facility] Comment on above: med f/u Start: 05-02-2024 End: 05-02-2024 Patient encounter procedure 05/02/2024 9:30 AM EST Office Visit Neurology [address] [place], [place] [phone] La Jacques PA-C [address] [place], [place] [phone] Chronic daily headache [R51.9] Neurology Comment on above: Chronic daily headac he [R51.9] Start: 04-24-2024 End: 04-24-2024 Patient encounter procedure 04/24/2024 11:00 AM EST Office Visit Vasculary Surgery [address] [place] [address] Aneurysm of left subclavian artery (HCC) [I72.8] [facility] Comment on above: Aneurysm of left sub clavian artery (HCC) [I72.8] Start: 04-11-2024 End: 04-11-2024 Patient encounter procedure 04/11/2024 8:40 AM EST Office Visit Family [facility] [place] [address] [facility] [place] [address] Cheryl Sahu PA-C [address] [place] [address] 4 week follow up Family [facility] Comment on above: 4 week follow up Start: 03-14-2024 End: 03-14-2024 Patient encounter procedure 03/14/2024 2:40 PM EST Office Visit Family [facility] [place] [address] [facility] [place] [address] Cheryl Sahu PA-C [address] [place] [address] follow up Family [facility] Comment on above: follow up Start: 03-14-2024 End: 06-13-2024 Acute hepatitis 1999 panel - Serum [facility] Comment on above: Expected: 03/14/2024 , Expires: 06/13/2024 Start: 03-14-2024 End: 06-13-2024 Hepatic function 1999 panel - Serum or Plasma [facility] Work Phone: Comment on above: Expected: 03/14/2024 , Expires: 06/13/2024 Start: 02-29-2024 End: 05-30-2024 Comprehensive metabolic 1999 panel - Serum or Plasma [facility] Comment on above: Expected: 02/29/2024 , Expires: 05/30/2024 Start: 02-29-2024 End: 05-30-2024 Hemoglobin A1c in Blood [facility] Comment on above: Expected: 02/29/2024 , Expires: 05/30/2024 Start: 02-29-2024 End: 05-30-2024 LIPID PANEL, NONFASTING [facility] Comment on above: Expected: 02/29/2024 , Expires: 05/30/2024 Start: 02-29-2024 End: 05-30-2024 Urinalysis complete panel - Urine [facility] Comment on above: Expected: 02/29/2024 , Expires: 05/30/2024 Start: 01-27-2024 Annual PCP Team Uranium Processing Supervisor saurabh Disease Visit Annual PCP Team Chronic Disease Visit [facility] Start: 12-12-2023 Urine microalbumin profile [facility] Start: 12-04-2023 Covid-19 Vaccine ( season) Covid-19 Vaccine () [facility] Start: 12-04-2023 Influenza vaccination [facility] Start: 10-02-2023 Influenza vaccination Influenza Vacc ine (#1) [facility] Comment on above: Postponed from 12/03 (Declined at this time) Start: 07-24-2023 ANNUAL PCP TEAM [employer] HAND SAURABH DISEASE VISIT ANNUAL PCP TEAM CHRONIC DISEASE VISIT [facility] Start: 07-03-2023 ANNUAL PCP TEAM [employer] M[employer] HAND SAURABH DISEASE VISIT ANNUAL PCP TEAM CHRONIC DISEASE VISIT [facility] Start: 06-05-2023 ANNUAL PCP TEAM [employer] M[employer] HAND SAURABH DISEASE VISIT ANNUAL PCP TEAM CHRONIC DISEASE VISIT [facility] Start: 06-05-2023 BP CONTROLLED (<130/80) BP CONTROLLE D (<130/80) [facility] Start: 06-05-2023 COVID-19 VACCINE (#1) COVID-19 VACCI NE (#1) [facility] Comment on above: Postponed from 09/03 (Declined at this time) Start: 06-05-2023 SHINGRIX VACCINE (1 of 2) REGALADO GRIX VACCINE (1 of 2) [facility] Comment on above: Postponed from 03/05 (Insurance Coverage) Start: 01-06-2023 ANNUAL PCP TEAM [employer] HAND SAURABH DISEASE VISIT ANNUAL PCP TEAM CHRONIC DISEASE VISIT [facility] Start: 12-03-2022 Covid-19 Vaccine ( season) Covid-19 Vaccine ( season) [facility] Start: 12-03-2022 Influenza vaccination INFLUENZA (Sea son Ended) [facility] Start: 11-12-2022 End: 12-13-2022 Us transvaginal US FEMALE PELVIS TRANSVAG Radiology Routine Ovarian cyst, bilateral Expected: 11/12/2022, Expires: 12/13/2022 [facility] Work Phone: Comment on above: Expected: 11/12/2022 , Expires: 12/13/2022 Start: 10-06-2022 BP CONTROLLED (<130/80) BP CONTROLLE D (<130/80) [facility] Start: 10-01-2022 Influenza vaccination INFLUENZA (#1) [facility] Comment on above: Postponed from 12/03 (Declined at this time) Start: 08-17-2022 Adult depression screening assessment DEPRESSION SCREENING [facility] Start: 08-17-2022 ANNUAL PCP TEAM [employer] HAND SAURABH DISEASE VISIT ANNUAL PCP TEAM CHRONIC DISEASE VISIT [facility] Start: 04-04-2022 DEPRESSION ASSESSMENT DEPRESSION ASS ESSMENT [facility] Start: 12-13-2021 COLORECTAL CANCER SCREENING COLORECTAL CANCER SCREENING [facility] Start: 12-13-2021 FECAL OCCULT BLOOD FECAL OCCULT BLOO D [facility] Start: 12-13-2021 Screening for malign ant neoplasm of colon [facility] Start: 12-03-2021 Influenza vaccination INFLUENZA (#1) [facility] Start: 08-31-2021 End: 10-31-2021 HEPATIC FUNCTION PNL HEPATIC FUNCTION PNL Lab Routine Fatty liver Expected: 08/31/2021, Expires: 10/31/2021 [facility] Work Phone: Comment on above: Expected: 08/31/2021 , Expires: 10/31/2021 Start: 08-17-2021 End: 10-17-2021 Calcium [Mass/volume] in Serum or Plasma CALCIUM TOTAL BLD Lab Routine Hypercalcemia Expected: 08/17/2021, Expires: 10/17/2021 [facility] Work Phone: Comment on above: Expected: 08/17/2021 , Expires: 10/17/2021 Start: 08-17-2021 End: 10-17-2021 IRON + TIBC IRON + TIBC Lab Routine Hair loss Expected: 08/17/2021, Expires: 10/17/2021 [facility] Work Phone: Comment on above: Expected: 08/17/2021 , Expires: 10/17/2021 Start: 04-04-2021 DEPRESSION ASSESSMENT DEPRESSION ASS ESSMENT [facility] Start: 2017 Pneumococcal Vaccine : 50+ (1 of 1 - PCV) Pneumococcal Vaccine: 50+ (1 of 1 - PCV) [facility] Start: 2017 SHINGRIX VACCINE (1 of 2) REGALADO GRIX VACCINE (1 of 2) [facility] Start: 2012 COLOGUARD (FIT-DNA) COLOGUARD (FIT-D NA) [facility] Start: 2012 Colonoscopy COLONOSCOPY [facility] Start: [address] COLONOGRAPHY [facility] Start: 2012 Screening for malign ant neoplasm of colon [facility] Start: 2012 SIGMOIDOSCOPY SIGMOIDOSCOPY [facility] Start: 2007 Mammography [facility] Start: 2007 Screening for malign ant neoplasm of breast Mammogram Screening [facility] Start: 1986 ONE PNEUMOVAX PRIOR TO AGE 65 ONE PNEUMOVAX PRIOR TO AGE 67 [facility] Start: 1985 BP CONTROLLED (<130/80) BP CONTROLLE D (<130/80) [facility] Start: 1985 HIV SCREENING HIV SCREENING [facility] Start: 1973 PNEUMOCOCCAL (1 - PCV) PNEUMOCOCCAL (1 - PCV) [facility] Start: 1972 COVID-19 VACCINE (#1) COVID-19 VACCI NE (#1) [facility] Start: 1967 COVID-19 VACCINE (#1) COVID-19 VACCI NE (#1) [facility] Start: 1967 HEPATITIS B (1 of 3 - 3-dose series) HEPATITIS B (1 of 3 - 3-dose series) [facility] Bacteria identified in Urine by Culture URINE CULTURE Microbiology Routine Acute cystitis without hematuria Ordered: 10/06/2021 [facility] Work Phone: Comment on above: Ordered: 10/06/2021 End: 09-16-2022 Ct thorax w/o contrast material CT CHEST WO IVCON Radiology Routine Lung nodules 1 Occurrences starting 08/17/2021 until 09/16/2022 [facility] Work Phone: Comment on above: 1 Occurrences starti ng 08/17/2021 until 09/16/2022 End: 07-05-2025 DBT Breast - bilateral screening ALIA SCREENING W EMELIA Radiology Routine Encounter for screening mammogram for breast cancer 1 Occurrences starting 06/05/2024 until 07/05/2025 [facility] Work Phone: Comment on above: 1 Occurrences starti ng 06/05/2024 until 07/05/2025 End: 10-17-2025 DBT Breast - bilateral screening ALIA SCREENING W EMELIA Radiology Routine Encounter for gynecological examination (general) (routine) without abnormal findings Encounter for screening mammogram for breast cancer 1 Occurrences starting 09/17/2024 until 10/17/2025 [facility] Work Phone: Comment on above: 1 Occurrences starti ng 09/17/2024 until 10/17/2025 ECG COMPLETE [facility] Work Phone: Comment on above: Ordered: 02/29/2024 Hemoglobin.gastroint rominain al.lower [Presence] in Stool by Immunoassay FECAL OCCULT BLOOD TEST Lab Routine Well adult exam Screening for colon cancer Ordered: 06/04/2022 [facility] Work Phone: Comment on above: Ordered: 06/04/2022 Influenza virus A an d B RNA and SARS-CoV-2 (COVID-19) N gene panel - Respiratory specimen by RONNIE with probe detection COVID WITH FLUA+B, ROUTINE Microbiology Routine Viral illness Suspected COVID-19 virus infection Ordered: 01/06/2022 [facility] Work Phone: Comment on above: Ordered: 01/06/2022 Magnesium measurement [facility] End: 08-20-2023 ALIA SCREENING ALIA SCREENING Radiology Routine Encounter for screening mammogram for breast cancer 1 Occurrences starting 07/21/2022 until 08/20/2023 [facility] Work Phone: Comment on above: 1 Occurrences starti ng 07/21/2022 until 08/20/2023 End: 08-04-2024 MG Breast Screening ALIA SCREENING Radiology Routine Encounter for screening mammogram for breast cancer 1 Occurrences starting 07/06/2023 until 08/04/2024 [facility] Work Phone: Comment on above: 1 Occurrences starti ng 07/06/2023 until 08/04/2024 Microscopic observat ion [Identifier] in Vaginal fluid by Gram stain BACT/HOMA VAG GRAM STAIN Microbiology Routine Vaginal pain Ordered: 11/13/2021 [facility] Work Phone: Comment on above: Ordered: 11/13/2021 End: 06-01-2025 MR Brain WO contrast MRI BRAIN WO IVCON Radiology Routine Chronic daily headache 1 Occurrences starting 05/02/2024 until 06/01/2025 [facility] Work Phone: Comment on above: 1 Occurrences starti ng 05/02/2024 until 06/01/2025 End: 06-01-2025 MR Cervical spine WO contrast MRI CERVICAL SPINE WO IVCON Radiology Routine Spinal stenosis of cervical region Gait abnormality 1 Occurrences starting 05/02/2024 until 06/01/2025 [facility] Comment on above: 1 Occurrences starti ng 05/02/2024 until 06/01/2025 End: 11-23-2025 MR Lumbar spine WO contrast MRI LUMBAR SPINE WO IVCON Radiology Routine Acute bilateral low back pain with bilateral sciatica Radiculopathy of lumbar region Chronic midline low back pain with bilateral sciatica Urinary incontinence, unspecified type 1 Occurrences starting 10/24/2024 until 11/23/2025 [facility] Work Phone: Comment on above: 1 Occurrences starti ng 10/24/2024 until 11/23/2025 Nucleic acid assay [facility] Ova OR parasites identification [facility] PAP TEST PAP TEST Lab Rou perry Encounter for gynecological examination (general) (routine) without abnormal findings Encounter for screening for human papillomavirus (HPV) Pap smear for cervical cancer screening 09/17/2024 12:32 PM EDT [facility] Patient Education ED Abdominal P ain Unkn Cause Fem ED Diet Vomiting Diarrhea ED Vomiting (Adult) [facility] Work Phone: Patient referral [facility] Work Phone: PT PLAN OF CARE CERTIFICATION PT PLAN OF CARE CERTIFICATION Procedures Routine Levator spasm Cystocele, midline Mixed stress and urge urinary incontinence Ordered: 11/17/2021 [facility] Work Phone: Comment on above: Ordered: 11/17/2021 End: 07-04-2023 Radex spine lumbosacral minimum 4 views XR LUMBAR PARS DEFECT 4V AP/LAT/BOTH OBL Radiology Routine Lumbar pain 1 Occurrences starting 06/04/2022 until 07/04/2023 [facility] Work Phone: Comment on above: 1 Occurrences starti ng 06/04/2022 until 07/04/2023 End: 07-04-2023 Radex spine thoracic 3 views XR THORACIC GENERAL 3V AP/LAT/SWIMMERS Radiology Routine Midline thoracic back pain, unspecified chronicity 1 Occurrences starting 06/04/2022 until 07/04/2023 [facility] Work Phone: Comment on above: 1 Occurrences starti ng 06/04/2022 until 07/04/2023 End: 02-28-2025 US Carotid arteries - bilateral US CAROTID ARTERIES [facility] Vascular Lab Routine Aneurysm of left subclavian artery (HCC) 1 Occurrences starting 02/29/2024 until 02/28/2025 [facility] Comment on above: 1 Occurrences starti ng 02/29/2024 until 02/28/2025 End: 11-23-2025 XR Lumbar spine 3 Views XR LUMBAR GENERAL 3V AP/LAT/L5-S1 Radiology Routine Acute bilateral low back pain with bilateral sciatica Radiculopathy of lumbar region Chronic midline low back pain with bilateral sciatica 1 Occurrences starting 10/24/2024 until 11/23/2025 [facility] Comment on above: 1 Occurrences starti ng 10/24/2024 until 11/23/2025 XR Lumbar spine 3 Views XR LUMBA R GENERAL 3V AP/LAT/L5-S1 Radiology Routine Acute bilateral low back pain with bilateral sciatica Radiculopathy of lumbar region Chronic midline low back pain with bilateral sciatica 10/24/2024 1:13 PM EDT [facility] Immunizations Immunization Date Immunization Notes Care Provider Miguel diaz 03-14-2024 tetanus toxoid, redu amina diphtheria toxoid, and acellular pertussis vaccine, adsorbed Cheryl Sahu PA-C Work Phone: [facility] 12-12-2020 influenza, injectabl e, quadrivalent, contains preservative Cheryl Sahu PA-C Work Phone: [facility] 12-12-2020 influenza virus vaccine, unspecified formulation Osvaldo Sue MD Work Phone: [facility] 05-04-2019 influenza, injectabl e, quadrivalent, preservative free Dr. Osvaldo Sue MD Work Phone: [facility] 05-04-2019 influenza, seasonal, injectable, preservative free Mel Sullivan HR RECEPTIONIST.RN PSYCH Work Phone: [facility] 12-11-2013 tetanus toxoid, redu amina diphtheria toxoid, and acellular pertussis vaccine, adsorbed Cheryl Sahu PA-C Work Phone: [facility] Payers Date Payer Category Payer Self-pay [id number] 2024 Unknown [id number] 2022 Unknown [id number] 2014 Medicaid [employer] [id number] 2014-Present [phone] [address] [place] [address] Medicaid [id number] 2014 Medicaid [id number] 1967 Unknown [id number] 1967 Unknown [id number] 1967 Unknown [id number] 1967 Unknown [id number] 1967 Unknown [id number] 1967 Unknown [id number] Unknown [id number] Unknown [id number] Unknown [id number] Unknown [id number] Unknown [id number] Social History Date Type Detail Facility Start: 11-27-2020 End: 01-06-2022 Tobacco smoking status NHIS Occasional tobacco smoker [facility] Start: 11-27-2020 End: 11-13-2021 Tobacco use and exposure Smokeless tobacco non-user [facility] Start: 08-17-2021 End: 08-22-2024 Alcohol intake Current drinker of alcohol (finding) [facility] Start: 08-17-2021 History SDOH Alcohol Comment occasionally [facility] Start: 09-15-2020 End: 11-13-2021 Tobacco Comment 1 -2 cigarettes per week [facility] Start: 1965 Sex Assigned At Not on file [facility] Start: 08-07-2021 End: 01-06-2022 Exposure to SARS-CoV-2 (event) Not sure [facility] Start: 01-06-2022 End: 03-26-2022 Tobacco use and exposure User of smokeless tobacco [facility] Work Phone: Start: 07-23-2022 End: 12-29-2024 Tobacco smoking status NHIS Ex-smoker [facility] Work Phone: History of tobacco use Current smoker [facility] Work Phone: History of tobacco use Cigarette Smoker [facility] Work Phone: Start: 07-23-2022 Tobacco use and exposure Former smokeless tobacco user [facility] Work Phone: Start: 12-07-2022 End: 01-26-2023 History of Social function [facility] Start: 12-07-2022 End: 01-26-2023 Tobacco use panel [facility] Start: 2012 Adult Depression Screening Assessment 3 [facility] Start: 04-15-2020 Alcohol Alcohol [facility] Start: 04-15-2020 Drugs Drugs [facility] Start: 04-15-2020 Lives Lives [facility] Start: 05-04-2019 Tobacco Use Tobacco Use [facility] Start: 1965 Sex Assigned At Female W [facility] Start: 09-17-2024 End: 10-24-2024 Alcoholic beverage intake Ex-drinker (finding) [facility] Goals Date Patient Goal Desired Activity /State Functional Status Date Assessment Result Facility 08-10-2024 Functional status Patient Activity Chair [facility] Work Phone: 08-09-2024 Functional status Activity Sangita Shaikh Assist [facility] Work Phone: 07-24-2014 Are you deaf, or do you have serious difficulty hearing No 07/24/2014 9:56 AM Tamika Palacios LPN No [facility] 07-24-2014 Are you blind, or do you have serious difficulty seeing, even when wearing glasses No 07/24/2014 9:56 AM EDT Tamika Stahl LPN No [facility] 07-24-2014 Do you have serious difficulty walking or climbing stairs No 07/24/2014 9:56 AM EDT Tamika Stahl LPN No [facility] 07-24-2014 Do you have difficul ty dressing or bathing No 07/24/2014 9:56 AM EDT Tamika Stahl LPN No [facility] 07-24-2014 Because of a physica l, mental, or emotional condition, do you have difficulty doing errands alone such as visiting a physician's office or shopping No 07/24/2014 9:56 AM EDT Tamika Stahl LPN No [facility] Mental Status Date Assessment Result Facility 08-09-2024 Cognitive function Voice/Name [facility] Work Phone: 07-24-2014 Because of a physica l, mental, or emotional condition, do you have serious difficulty concentrating, remembering, or making decisions No 07/24/2014 9:56 AM EDT Tamika Stahl LPN No [facility] Clinical Notes 07-24-2014 to 01-09-2025 Telephone Encounter - Umm Green RN - 12/18/2024 10:26 AM EDTTelephone Encounter - Umm Green RN - 12/18/2024 10:26 AM Annabella Gonzalez MA - 12/18/2024 10:01 AM EDT Note Date & Type Note Facility 01-09-2025 Note HNO ID: [id number] Author: ARETHA PATTERSON, DO Service: ? Author Type: Physician Type: Progress Notes Filed: 01/10/2025 10:51 Note Text: Follow Up Visit Chief Complaint The patient is a 59-year-old female with a right proximal humerus fracture, presenting for a two-week follow-up and initiation of physical therapy. Patient presents with: Right Shoulder - Established Patient, Fracture, Follow Up History of Present Illness PAIN EVALUATION 01/09/2025 0959 Pain Level: 7 Pain Location: Shoulder-Right Description: Sore Duration Amount of Time: 2 Duration Units: Weeks Frequency: Intermittent Intervention/Comfort measure: Cold;Other: See comment sling HPI: Noemi Alonso is a 59 year old female for a follow up visit for a right proximal humerus fracture. She is 2 weeks out from injury that occurred when she had a fall on 12/24/2024. Pain history is noted as above. Last XR Humerus - Impression Only No resulted procedures found. Is there any overall improvement in your condition? Yes, pain Any new injury, since being seen last: No Noemi is a 59-year-old female with a history of a right proximal humerus fracture, presenting for follow-up. Right Proximal Humerus Fracture: - Fracture occurred 2 weeks ago; currently wearing a sling. - Able to open and close hand; experiences difficulty and pain when moving the arm too far from the body. - No changes in medications or medical history since the last visit. - No known allergies. REVIEW OF SYMPTOMS: Patient did not have, and does not [...] of consciousness or full loss of consciousness. Musculoskeletal: (+) right shoulder pain, (+) limited right shoulder range of motion Current Outpatient Medications Medication Sig gabapentin (NEURONTIN) 300 mg capsule Take 1 capsule by mouth three times a day for 90 days. traZODone (DESYREL) 50 mg tablet Take 1 [...] Max of 12 mg in 24 hrs. traMADol (ULTRAM) 50 mg tablet Take 1 tablet by mouth every 4 hours as needed for pain for up to 5 days. for pain. estradiol (ESTRACE) 0.01 % (0.1 mg/gram) vaginal cream Use 0.5g vaginally at bedtime for 2 weeks then 3 times/weeks for maintenance. (Patient not taking: Reported on 01/09/2025) No current facility-administered medications for this visit. Physical Exam Vitals: There were no vitals taken for [...] at rest Rheumatologic: Joint deformities: right shoulder follow up Right Hand Exam Right hand exam is [...] normal Pronation: normal Supination: normal Muscle Strength Th (more content not included)... [facility] 01-09-2025 Note HNO ID: [id number] Author: MEL CEE Tech Service: Radiology Author Type: Brassiere Cup Mold Cutter Type: Progress Notes Filed: 01/09/2025 09:30 Note Text: Radiology Service Progress Note PATIENT NAME: Noemi Alonso DATE OF SERVICE: January 09, 2025 TIME: 9:30 AM PATIENT IDENTITY VERIFICATION COMPLETED USING TWO [...] PATIENT PRESENTS WITH AN IMPLANTABLE OR ATTACHED CITY BAILIFF: No RADIOLOGY DEPARTMENT: General X-ray: Exam(s) Completed: Upper Extremity X-Ray(s): Shoulder, AP / TRUE AP / AXILLARY / SUPRA OUTLET right PERIPHERAL IV DATA: Not applicable SIGNED BY: Kar Walsh January 09, 2025 9:30 AM [facility] 12-31-2024 Note HNO ID: [id number] Author: YVONNE MASON MA Service: ? Author Type: Produce Laborer Type: Progress Notes Filed: 12/31/2024 08:14 Note Text: [facility] ED visit. Scan on 12/29/2024 2:05 PM by Tevin Mensah PA-C: [facility] ED [facility] 12-31-2024 Note HNO ID: [id number] Author: YVONNE MASON MA Service: ? Author Type: Produce Laborer Type: Progress Notes Filed: 12/31/2024 08:14 Note Text: Scan on 12/31/2024 7:18 AM by Tevin Mensah PA-C: LT Hand Scan on 12/31/2024 7:18 AM by Tevin Mensah PA-C: RT Knee Scan on 12/31/2024 7:17 AM by Tevin Mensah PA-C: RT Shoulder [facility] 12-29-2024 Discharge summary [facility] 12-29-2024 Radiology Diagnostic study note [facility] Imaging Services [address] [place] [address] Abdomen/Pelvis W IV Cont ONLY MR#: [id number] Acct: [id number] Name: NOEMI ALONSO Rep #: [id number] : 1965 F 59 From: Slava Mcdonough MD PCP: Dr. Osvaldo Sue MD Status: REG ER Study:Abdomen/Pelvis W IV Cont ONLY Date of Pal xam: 12/29/24 Exam# [id number] Ordering Dr: Freedom Alexander MD PROCEDURE: ABDOMEN/PELVIS W IV CONT ONLY 12/29/2024 REASON FOR EXAM: NAUSEA AND VOMITING TECHNIQUE: Procedure Code: CTABDPELIV Modality: CT Procedure: ABDOMEN/PELVIS W IV CONT ONLY Coronal and Sagittal reconstruction series were provided. CONTRAST: Isovue-300 VOLUME: 100 mL One or more dose reduction techniques were used (e.g., Automated exposure control, adjustment of the mA and/or kV according to patient size, use of iterative reconstruction technique. RADIATION DOSE SUMMARY: CTDlvol: 26.14 mGy DLP: 923.33 mGycm COMPARISON: CT abdomen and pelvis with IV contrast, 08/09/2024 FINDINGS: Lung bases: Nodules seen in the lung bases are unchanged. There are no pleural effusions. The heart size is normal. There is no pericardial effusion. There is no significant calcific vascular disease of the coronary arteries or visualized portion of the thoracic aorta. Liver: Fatty liver infiltration. Gallbladder: Surgically absent. Spleen: Normal. Pancreas: Normal size without evidence of mass surrounding inflammation or ductal dilation. Adrenals: Normal. Kidneys: Normal renal sizes. No hydronephrosis. Bladder: The urinary bladder is partially evacuated but has an otherwise normal unenhanced appearance. Reproductive Organs: There are numerous dilated vessels surrounding the uterus consistent with pelvic congestion. There is a left ovarian cyst measuring 4.8 x 4.4 x 3.5 cm (was 4.5 x 4.4 x 3.5 cm). There is a right ovarian cyst, measuring 2.3 x 2.2 x 2.2 cm (was 2.2 x 2.0 x 2.0 cm). There are bilateral tubal ligation clips. Bowel: The gastrointestinal tract appears unremarkable. Appendix: The appendix is not identified. There is no inflammatory process identified in the right lower quadrant to suggest appendicitis. Lymph nodes: There is no significant mesenteric, retroperitoneal or pelvic lymphadenopathy. Vasculature: There is calcific vascular disease of the abdominal aorta. Peritoneum / Retroperitoneum: There are no abnormal intra or retroperitoneal masses or fluid collections. Bones: There are no significant bony abnormalities of the abdomen or pelvis. CT/Abdomen/Pelvis W IV Cont ONLY IMPRESSION: 1. Serpiginous vessels surrounding the uterus consistent with pelvic congestion. 2. Bilateral ovarian cysts, not significantly changed. 3. The appearance of the lung bases is unchanged. 4. Fatty liver infiltration. Reading Location: [id number] CC: Dr. Freedom Alexander MD; Dr. Osvalod Sue MD ~ Internet Programmer: Signed [facility] Work Phone: 12-28-2024 Note HNO ID: [id number] Author: ARETHA PATTERSON, DO Service: ? Author [...] Duration Units: Days Frequency: Continuous Intervention/Comfort measure: Medication;Relaxation;Reposition;P ositioning [place], sling HPI: Right Shoulder Pain: - Noemi Alonso fell on right shoulder 2 days ago while running in the rain; shoes gave out. - Evaluated at [facility] ER post-fall. - Pain rated as 10/10. - Taking Percocet 5/325 mg, but Noemi reports inadequate pain relief; only prescribed 10 [...] exam is normal. Tenderness The patient is e (more content not included)... [facility] 12-26-2024 Note HNO ID: [id number] Author: KARISSA COPPOLA RT(Lesley) Service: Radiology Author Type: Technologist Type: Progress Notes Filed: 12/26/2024 09:29 Note Text: Radiology Service Progress Note PATIENT NAME: Noemi Alonso DATE OF SERVICE: December 26, 2024 [...] PATIENT PRESENTS WITH AN IMPLANTABLE OR ATTACHED CITY BAILIFF: No RADIOLOGY DEPARTMENT: General X-ray: Exam(s) Completed: Upper Extremity X-Ray(s): Shoulder, AP / TRUE AP / AXILLARY / SUPRA OUTLET right PERIPHERAL IV DATA: Not applicable SIGNED BY: RT Jonna(R) December 26, 2024 9:29 AM [facility] 12-25-2024 Note HNO ID: [id number] Author: YVONNE MASON MA Service: ? Author Type: Produce Laborer Type: Progress Notes Filed: 12/25/2024 10:19 Note Text: Scan on 12/25/2024 7:56 AM by Provider, Tevin, PAJaimeC: CBCD, PT INR, CMP [facility] 12-18-2024 Telephone encounter Note Pt called and is notified of providers [...] date with Cheryl BAEZ. Umm Green RN [facility] 12-18-2024 Miscellaneous Notes Pt called and is notified of providers [...] date with Cheryl BAEZ. Umm Green RN I recommend OTC management for yeast infection if she develops symptoms. Such as 7 day monistat Pt scheduled for [facility] ER f/u on 12/25/24 with Cheryl BAEZ. [...] usually give her yeast infection. Pt uses [facility] in [place] if provider wanted to call in something for her to take so she doesn't get a yeast infection. Please call and advise Pt. Umm Green, GET Patient will need seen and evaluated. Pt called in and reports she started [...] if provider would send in Zofran to [facility] in [place] for her. I let her know she [...] she will go to the ER with [facility] or [facility]. She states they usually don't keep her overnight, which is what she needs. She states she needs fluids and nausea medication over night. She reports they went to [facility] and he boyfriend begged them to keep her overnight and they did. I told her I would send the message to the provider, but I didn't think he would send in Zofran for her. Please call and advise. Umm Green RN documented in this encounter [facility] 12-18-2024 Telephone encounter Note I recommend OTC management for yeast infection if she develops symptoms. Such as 7 day monistat [facility] 12-18-2024 Note HNO ID: [id number] Author: YVONNE MASON MA Service: ? Author Type: Produce Laborer Type: Progress Notes Filed: 12/21/2024 08:28 Note Text: Scan on 12/17/2024 5:03 PM by ProviderTevin PA-C: CXR done at [place] Scan on 12/20/2024 12:03 PM by ProviderTevin PA-C: Urine culture [facility] 12-18-2024 History of Present illness Narrative Scan on 12/17/2024 5:03 PM by ProviderTevin PA-C: CXR done at [place] documented in this encounter [facility] 12-18-2024 Telephone encounter Note Pt scheduled for [place] ER f/u on 12/25/24 with Cheryl BAEZ. [...] her yeast infection. Pt uses [facility] in [place] if provider wanted to call in something for her to take so she doesn't get a yeast infection. Please call and advise Pt. Umm Green RN [facility] 12-18-2024 Telephone encounter Note Patient will need seen and evaluated. [facility] 12-17-2024 Telephone encounter Note Pt called in and reports she started [...] if provider would send in Zofran to [facility] for her. I let her know she [...] she will go to the ER with [place] or [facility]. She states they usually don't keep her overnight, which is what she needs. She states she needs fluids and nausea medication over night. She reports they went to [facility] and he boyfriend begged them to keep her overnight and they did. I told her I would send the message to the provider, but I didn't think he would send in Zofran for her. Please call and advise. Umm Green, GET [facility] 10-26-2024 Telephone encounter Note Pt notified of same. Breann Davis LPN [facility] 10-26-2024 Miscellaneous Notes Pt notified of same. Breann Davis LPN Let patient know that her urine is neg for infection. Cheryl Sahu PA-C documented in this encounter [facility] 10-26-2024 Telephone encounter Note Let patient know that her urine is neg for infection. Cheryl Sahu PA-C [facility] 10-24-2024 History of Present illness Narrative Radiology Service Progress Note PATIENT NAME: Noemi Alonso DATE OF SERVICE: October 24, 2024 [...] PATIENT PRESENTS WITH AN IMPLANTABLE OR ATTACHED CITY BAILIFF: No RADIOLOGY DEPARTMENT: General X-ray: Exam(s) Completed: Spine X-Ray(s): Lumbar AP / LAT / L5-S1 PERIPHERAL IV DATA: Not applicable SIGNED BY: RT Doris(R) October 24, 2024 1:05 PM documented in this encounter [facility] 10-24-2024 Note HNO ID: [id number] Author: FLORI RODRIGUEZ RT(R) Service: ? Author Type: Brassiere Cup Mold Cutter Type: Progress Notes Filed: 10/24/2024 13:12 Note Text: Radiology Service Progress Note PATIENT NAME: Noemi Alonso DATE OF SERVICE: October 24, 2024 [...] PATIENT PRESENTS WITH AN IMPLANTABLE OR ATTACHED CITY BAILIFF: No RADIOLOGY DEPARTMENT: General X-ray: Exam(s) Completed: Spine X-Ray(s): Lumbar AP / LAT / L5-S1 PERIPHERAL IV DATA: Not applicable SIGNED BY: RT Doris(R) October 24, 2024 1:05 PM [facility] 10-24-2024 Note HNO ID: [id number] Author: CHERYL SAHU PA-C Service: ? Author Type: Physician Lower In Supervisor Type: Progress Notes Filed: 10/24/2024 12:31 Note Text: Chief Complaint Patient presents with: Edema: Bilateral lower legs x 1 week HPI Noemi Alonso is a 59 year old female who presents here today for Above Complaints.. Bilateral Foot Pain: - Onset: 1 week ago. - Described as hurting when standing; pain worsens with prolonged standing. - Can only stand for about 10 minutes before pain becomes severe. - Pain is diffuse across both feet. - Noemi denies any changes in footwear or activities. Chronic Back Pain: - Chronic back pain with acute worsening over the past week. - Experiences muscle spasms described as giving out in the lower back, causing near falls. - Spasms occur during activities like standing or doing dishes. - No recent physical therapy for back pain. - Noemi denies known trauma. Urinary Incontinence: - Worsening urinary incontinence over the past couple of weeks. - Experiences a burning sensation during urination that radiates to the arms and fingers. - Urgency and frequency increased, especially when hearing running water. - Noemi uses a pad for leakage, particularly when [...] 08/17/2021 GERD without esophagitis 12/12/2020 History of SD (myocardial infarction) 07/11/2019 2016 Lung nodules 2020 [...] LIGATE FALLOPIAN TUBE age 23 - at [facility] PAST SURGICAL HISTORY OF 04/2014 heart [...] Musculoskeletal: pain to palp of b/l plantar fascia (more content not included)... [facility] 10-24-2024 History of Present illness Narrative Chief Complaint Patient presents with: Edema: Bilateral lower legs x 1 week HPI Noemi Alonso is a 59 year old female who presents here today for Above Complaints.. Bilateral Foot Pain: - Onset: 1 week ago. - Described as hurting when standing; pain worsens with prolonged standing. - Can only stand for about 10 minutes before pain becomes severe. - Pain is diffuse across both feet. - Noemi denies any changes in footwear or activities. Chronic Back Pain: - Chronic back pain with acute worsening over the past week. - Experiences muscle spasms described as giving out in the lower back, causing near falls. - Spasms occur during activities like standing or doing dishes. - No recent physical therapy for back pain. - Noemi denies known trauma. Urinary Incontinence: - Worsening urinary incontinence over the past couple of weeks. - Experiences a burning sensation during urination that radiates to the arms and fingers. - Urgency and frequency increased, especially when hearing running water. - Noeim uses a pad for leakage, particularly when [...] 08/17/2021 GERD without esophagitis 12/12/2020 History of SD (myocardial infarction) 07/11/[address] [facility] mm x 4 [...] LIGATE FALLOPIAN TUBE age 23 - at [facility] PAST SURGICAL HISTORY OF 04/2014 heart [...] Size: Large Adult) Pulse 77 Temp 36.5 C (97.7 F) Resp 18 Wt 75.8 kg (167 lb) SpO2 97% BMI 29.22 kg/m General Appearance: Well appearing, alert, in no [...] treatment plan. Cheryl Sahu PA-C Recording using [employer] software for draft documentation of the visit was discussed with the patient/authorized banking representative; all questions welcomed and answered. Patient/authorized banking representative agreed to proceed documented in this encounter [facility] 10-23-2024 Telephone encounter Note Patient calls for bilateral feet/ankle/leg edema. Nurse triage completed. Protocol recommends see provider within 3 days. Appt scheduled. Care advice reviewed with verbalized understanding. Reason for Disposition [1] MILD swelling of both ankles (i.e., pedal edema) AND [2] new-onset or getting worse Answer Assessment - Initial Assessment Questions 1. ONSET: A week ago 2. LOCATION: Bilateral feet/ankles/legs slightly above the ankle 3. SEVERITY: - MILD Edema: Swelling limited to foot and ankle, pitting edema < 1/4 inch (6 mm) deep, rest and elevation eliminate most or all swelling. 4. REDNESS: No 5. PAIN:Moderate pain to arches of foot and metatarsals with walking and applying pressure. 6. FEVER: No 7. CAUSE: Patient not certain reports she has never had swelling before. 8. MEDICAL HISTORY: No history of blood clots (e.g., DVT), cancer, heart failure, kidney disease, or liver failure. 9. RECURRENT SYMPTOM: No 10. OTHER SYMPTOMS: Denies chest pain, difficulty breathing Protocols used: Leg Swelling and Kxsos-[id number]-LA [facility] 10-23-2024 Miscellaneous Notes Patient calls for bilateral feet/ankle/leg edema. Nurse triage completed. Protocol recommends see provider within 3 days. Appt scheduled. Care advice reviewed with verbalized understanding. Reason for Disposition [1] MILD swelling of both ankles (i.e., pedal edema) AND [2] new-onset or getting worse Answer Assessment - Initial Assessment Questions 1. ONSET: A week ago 2. LOCATION: Bilateral feet/ankles/legs slightly above the ankle 3. SEVERITY: - MILD Edema: Swelling limited to foot and ankle, pitting edema < 1/4 inch (6 mm) deep, rest and elevation eliminate most or all swelling. 4. REDNESS: No 5. PAIN:Moderate pain to arches of foot and metatarsals with walking and applying pressure. 6. FEVER: No 7. CAUSE: Patient not certain reports she has never had swelling before. 8. MEDICAL HISTORY: No history of blood clots (e.g., DVT), cancer, heart failure, kidney disease, or liver failure. 9. RECURRENT SYMPTOM: No 10. OTHER SYMPTOMS: Denies chest pain, difficulty breathing Protocols used: Leg Swelling and [id number]-[id number] documented in this encounter [facility] 10-01-2024 Telephone encounter Note Prescription Refill Information The patient has been identified by name and date of : Yes Caregiver verified no other encounters exist for this prescription request: Yes Caregiver confirmed with patient/requestor that no other refills are due, in the near future, with this provider at this time: Yes The last office visit in the department: 08/22/24 Does the patient have a future office visit with this provider/department: Yes Requested Prescriptions Pending Prescriptions Disp Refills traZODone (DESYREL) 50 mg tablet 90 tablet 1 Sig: Take 1 tablet by mouth daily at bedtime. atorvastatin (LIPITOR) 20 mg tablet 30 tablet 5 Sig: Take 1 tablet by mouth daily at bedtime. For cholesterol. Breann Davis LPN October 01, 2024 8:16 AM [facility] 10-01-2024 Miscellaneous Notes Prescription Refill Information The patient has been identified by name and date of : Yes Caregiver verified no other encounters exist for this prescription request: Yes Caregiver confirmed with patient/requestor that no other refills are due, in the near future, with this provider at this time: Yes The last office visit in the department: 08/22/24 Does the patient have a future office visit with this provider/department: Yes Requested Prescriptions Pending Prescriptions Disp Refills traZODone (DESYREL) 50 mg tablet 90 tablet 1 Sig: Take 1 tablet by mouth daily at bedtime. atorvastatin (LIPITOR) 20 mg tablet 30 tablet 5 Sig: Take 1 tablet by mouth daily at bedtime. For cholesterol. Breann Davis LPN October 01, 2024 8:16 AM Prescription Refill Information The patient has been identified by name and date of : Yes Caregiver verified no other encounters exist for this prescription request: Yes Caregiver confirmed with patient/requestor that no other refills are due, in the near future, with this provider at this time: Yes The last office visit in the department: 08/22/2024 Does the patient have a future office visit with this provider/department: Yes Requested Prescriptions Pending Prescriptions Disp Refills traZODone (DESYREL) 50 mg tablet 90 tablet 1 Sig: Take 1 tablet by mouth daily at bedtime. atorvastatin (LIPITOR) 20 mg tablet 30 tablet 5 Sig: Take 1 tablet by mouth daily at bedtime. For cholesterol. Cindy Banuelos September 29, 2024 9:03 AM documented in this encounter [facility] 09-29-2024 Telephone encounter Note Prescription Refill Information The patient has been identified by name and date of : Yes Caregiver verified no other encounters exist for this prescription request: Yes Caregiver confirmed with patient/requestor that no other refills are due, in the near future, with this provider at this time: Yes The last office visit in the department: 08/22/2024 Does the patient have a future office visit with this provider/department: Yes Requested Prescriptions Pending Prescriptions Disp Refills traZODone (DESYREL) 50 mg tablet 90 tablet 1 Sig: Take 1 tablet by mouth daily at bedtime. atorvastatin (LIPITOR) 20 mg tablet 30 tablet 5 Sig: Take 1 tablet by mouth daily at bedtime. For cholesterol. Cindy Banuelos September 29, 2024 9:03 AM [facility] 09-21-2024 Progress note Formatting of t his note might be different from the original. Send letter about normal pap if she does not have mychart. Freda Mahajan MD [facility] Work Phone: 09-21-2024 Miscellaneous Notes Send letter about normal pap if she does not have mychart. Freda Mahajan MD documented in this encounter [facility] 09-17-2024 Note HNO ID: [id number] Author: JERRY ROMO MD Service: ? 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 Note Bilateral simple ovarian cysts 2/4 cm and stable since 2021. Also 5mm endometrium w/o hx ov bleeding /staining etc. Noemi is a 59 year old who presents for an annual gynecologic exam without complaints. 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 Operations Manager History LMP: Postmenopausal Age at Menarche: Age at First : Age at Menopause: Logistics Operations Manager History Comments: Sexual Activity: Yes; Male; tubes tied at the age of 23 Contraception: Tubal Ligation PAST MEDICAL HISTORY Diagnosis Date Anxiety disorder 07/24/2014 Elevated hemoglobin A1c 07/18/2021 Elevated LFTs 2020 Environmental allergies 10/06/2018 Essential hypertension 07/24/2014 Fatty liver 08/17/2021 GERD without esophagitis 12/12/2020 History of SD (myocardial infarction) 07/11/2019 2016 Lung nodules 2020 [...] LIGATE FALLOPIAN TUBE age 23 - at [facility] PAST SURGICAL HISTORY OF 04/2014 heart [...] discussed with the Patient or Patient's Authorized Bath Tester. As applicable, any other physician, advance practice provider, medical student, or other health professional student that will be observing or involved in the sensitive examination for educational or training purposes was discussed with the Patient or Authorized Bath Tester. 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 Note Bilateral simple ovarian cysts 2/4 cm and stable since 2021. Also 5mm endometrium w/o hx ov bleeding /staining etc. Noemi is a 59 year old who presents for an annual gynecologic exam without complaints. 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 Operations Manager History LMP: Postmenopausal Age at Menarche: Age at First : Age at Menopause: Logistics Operations Manager History Comments: Sexual Activity: Yes; Male; tubes tied at the age of 23 Contraception: Tubal Ligation PAST MEDICAL HISTORY Diagnosis Date Anxiety disorder 07/24/2014 Elevated hemoglobin A1c 07/18/2021 Elevated LFTs 2020 Environmental allergies 10/06/2018 Essential hypertension 07/24/2014 Fatty liver 08/17/2021 GERD without esophagitis 12/12/2020 History of SD (myocardial infarction) 07/11/2019 2016 Lung nodules 2020 [...] LIGATE FALLOPIAN TUBE age 23 - at [facility] PAST SURGICAL HISTORY OF 04/2014 heart [...] discussed with the Patient or Patient's Authorized Bath Tester. As applicable, any other physician, advance practice provider, medical student, or other health professional student that will be observing or involved in the sensitive examination for educational or training purposes was discussed with the Patient or Authorized Bath Tester. The Patient or Authorized Bath Tester has agreed to proceed with the sensitive [...] external genitalia normal, normal Bartholin's glands, urethra, [place]'s glands, no vulvar lesions, no cervical lesions, [...] any vaginal bleeding/staining whatsoever Jerry Romo MD documented in this encounter [facility] 09-03-2024 Telephone encounter Note Prescription Refill Information The patient has been identified by name and date of : Yes Caregiver verified no other encounters exist for this prescription request: Yes Caregiver confirmed with patient/requestor that no other refills are due, in the near future, with this provider at this time: Yes The last office visit in the department: 08-22-24 Does the patient have a future office visit with this provider/department: Yes Requested Prescriptions Pending Prescriptions Disp Refills propranolol ER (INDERAL LA) 160 mg Cs24 90 capsule 1 Sig: Take 1 capsule by mouth once daily. Lexi Viveros September 03, 2024 9:31 AM [facility] Work Phone: 09-03-2024 Miscellaneous Notes Prescription Refill Information The patient has been identified by name and date of : Yes Caregiver verified no other encounters exist for this prescription request: Yes Caregiver confirmed with patient/requestor that no other refills are due, in the near future, with this provider at this time: Yes The last office visit in the department: 08-22-24 Does the patient have a future office visit with this provider/department: Yes Requested Prescriptions Pending Prescriptions Disp Refills propranolol ER (INDERAL LA) 160 mg Cs24 90 capsule 1 Sig: Take 1 capsule by mouth once daily. Lexi Viveros September 03, 2024 9:31 AM documented in this encounter [facility] 08-30-2024 Telephone encounter Note Prescription Refill Information The patient has been identified by name and date of : Yes Caregiver verified no other encounters exist for this prescription request: Yes Caregiver confirmed with patient/requestor that no other refills are due, in the near future, with this provider at this time: Yes The last office visit in the department: 05/02/24 Does the patient have a future office visit with this provider/department: Yes 10/12/24 Requested Prescriptions Pending Prescriptions Disp Refills gabapentin (NEURONTIN) 300 mg capsule [Pharmacy Med Name: Gabapentin 300 MG Oral Capsule] 90 capsule 0 Sig: Take 1 capsule by mouth three times a day. Nicolasa Wallis LPN August 30, 2024 11:49 AM [facility] 08-30-2024 Miscellaneous Notes Prescription Refill Information The patient has been identified by name and date of : Yes Caregiver verified no other encounters exist for this prescription request: Yes Caregiver confirmed with patient/requestor that no other refills are due, in the near future, with this provider at this time: Yes The last office visit in the department: 05/02/24 Does the patient have a future office visit with this provider/department: Yes 10/12/24 Requested Prescriptions Pending Prescriptions Disp Refills gabapentin (NEURONTIN) 300 mg capsule [Pharmacy Med Name: Gabapentin 300 MG Oral Capsule] 90 capsule 0 Sig: Take 1 capsule by mouth three times a day. Nicolasa Wallis LPN August 30, 2024 11:49 AM documented in this encounter [facility] 08-29-2024 Note HNO ID: [id number] Author: DULCE MARIA MARTINEZ MA Service: ? Author Type: Produce Laborer Type: Progress Notes Filed: 08/29/2024 13:56 Note Text: Patient was seen for hospital follow up 08/22/2024. [facility] 08-29-2024 Telephone encounter Note Patient notified of results and provider's instructions. Patient verbalizes understanding. Breann Davis LPN [facility] 08-29-2024 Miscellaneous Notes Patient notified of results and provider's instructions. Patient verbalizes understanding. Breann Davis LPN Let patient know that her US does show ovarian cysts that appear benign. Recommend repeat US In 1 year. But will defer to gynecology. Incidentally the US does show thickened endometrium. Keep follow up with cleaner and dyer to discuss uterine biopsy. Cheryl Sahu PA-C documented in this encounter [facility] 08-29-2024 Telephone encounter Note Let patient know that her US does show ovarian cysts that appear benign. Recommend repeat US In 1 year. But will defer to gynecology. Incidentally the US does show thickened endometrium. Keep follow up with cleaner and dyer to discuss uterine biopsy. Cheryl Sahu PA-C [facility] 08-28-2024 History of Present illness Narrative Radiology Service Progress Note PATIENT NAME: Noemi Alonso DATE OF SERVICE: August 28, 2024 [...] PATIENT PRESENTS WITH AN IMPLANTABLE OR ATTACHED CITY BAILIFF: No RADIOLOGY DEPARTMENT: Ultrasound PERIPHERAL IV DATA: Not applicable SIGNED BY: Mel Anderson RDMS RVT August 28, 2024 1:17 PM documented in this encounter [facility] 08-28-2024 Note HNO ID: [id number] Author: MEL ANDERSON RDMS Service: ? Author Type: Radio Engineering Teacher Type: Progress Notes Filed: 08/28/2024 13:17 Note Text: Radiology Service Progress Note PATIENT NAME: Noemi Alonso DATE OF SERVICE: August 28, 2024 [...] PATIENT PRESENTS WITH AN IMPLANTABLE OR ATTACHED CITY BAILIFF: No RADIOLOGY DEPARTMENT: Ultrasound PERIPHERAL IV DATA: Not applicable SIGNED BY: Mel Anderson RDMS RVT August 28, 2024 1:17 PM [facility] 08-22-2024 Note HNO ID: [id number] Author: CHERYL SAHU PA-C Service: ? Author Type: Physician Lower In Supervisor Type: Progress Notes Filed: 08/22/2024 09:28 Note Text: Chief Complaint Patient presents with: Hospital F/U HPI Noemi Alonso is a 59 year old female [...] 08/17/2021 GERD without esophagitis 12/12/2020 History of SD (myocardial infarction) 07/11/2019 2016 Lung nodules 2020 [...] LIGATE FALLOPIAN TUBE age 23 - at [facility] PAST SURGICAL HISTORY OF 04/2014 heart [...] 118/86 (BP Site: Left Arm, BP Position: Sitti (more content not included)... [facility] 08-20-2024 Telephone encounter Note Pt notified of Cheryl's message. Pt advises pharm did not mention monistat 3. She will check around at other pharmacies. Aware if any problems that she can just get this OTC. Breann Davis LPN [facility] 08-20-2024 Miscellaneous Notes Pt notified of Cheryl's message. Pt advises pharm did not mention monistat 3. She will check around at other pharmacies. Aware if any problems that she can just get this OTC. Breann Davis LPN Attempted to contact pt. No answer and vm is not available. Will try again later. Breann Davis LPN See if she can try a different pharmacy? Did they say they had monistat 3. Also these are OTC that she can find herself if needed. Cheryl Sahu PA-C Pt called in and reports the cream the provider called in is out of stock and the pharmacy does not know when they will get it back in. The Pt is asking if the provider will call something else in because she has major itching. Please call and advise. Umm Green RN Patient called and notified that prescription was sent to pharmacy. Voices understanding. Salome Barnes, RN I sent in monistat. Cheryl Sahu PA-C Patient call in for vaginal itching. Patient was seen at [facility] ER on 08/10/2024 for Bladder Infection. Patient was given IV antibiotics while in hospital. Patient for the past week has noticed that she has vaginal itching. Patient asking if something can be called in for this? Nurse Triage assessment completed with protocol recommending for disposition of see PCP in 24 hours. Patient is scheduled for Hospital follow up appointment with Cheryl on 08/22/2024. Care advice reviewed with patient, patient stated understanding. Reason for Disposition MODERATE-SEVERE itching (i.e., interferes with school, work, or sleep) Answer Assessment - Initial Assessment Questions 1. SYMPTOM: Vaginal Itching 2. LOCATION: Outside; Bilateral 3. ONSET: X 1 week ago; Was in Hospital 4. PAIN: Denies Pain 5. Itching; Patient states that she has itching. 6. CAUSE: Denies Discharge; Patient was on antibiotics for Bladder infection 7. OTHER SYMPTOMS: Itching; bleeding due to scratching. Protocols used: Vaginal [id number] documented in this encounter [facility] 08-20-2024 Telephone encounter Note Attempted to contact pt. No answer and vm is not available. Will try again later. Breann Davis LPN [facility] 08-20-2024 Telephone encounter Note See if she can try a different pharmacy? Did they say they had monistat 3. Also these are OTC that she can find herself if needed. Cheryl Sahu PA-C [facility] 08-20-2024 Telephone encounter Note Pt called in and reports the cream the provider called in is out of stock and the pharmacy does not know when they will get it back in. The Pt is asking if the provider will call something else in because she has major itching. Please call and advise. Umm Green RN [facility] 08-20-2024 Telephone encounter Note Patient called and notified that prescription was sent to pharmacy. Voices understanding. Salome Barnes RN [facility] 08-20-2024 Telephone encounter Note I sent in monistat. Cheryl Sahu PA-C [facility] 08-20-2024 Telephone encounter Note Patient call in for vaginal itching. Patient was seen at [facility] ER on 08/10/2024 for Bladder Infection. Patient was given IV antibiotics while in hospital. Patient for the past week has noticed that she has vaginal itching. Patient asking if something can be called in for this? Nurse Triage assessment completed with protocol recommending for disposition of see PCP in 24 hours. Patient is scheduled for Hospital follow up appointment with Cheryl on 08/22/2024. Care advice reviewed with patient, patient stated understanding. Reason for Disposition MODERATE-SEVERE itching (i.e., interferes with school, work, or sleep) Answer Assessment - Initial Assessment Questions 1. SYMPTOM: Vaginal Itching 2. LOCATION: Outside; Bilateral 3. ONSET: X 1 week ago; Was in Hospital 4. PAIN: Denies Pain 5. Itching; Patient states that she has itching. 6. CAUSE: Denies Discharge; Patient was on antibiotics for Bladder infection 7. OTHER SYMPTOMS: Itching; bleeding due to scratching. Protocols used: Vaginal [id number] [facility] 08-13-2024 Note HNO ID: [id number] Author: OSVALDO SUE MD Service: ? Author Type: Physician Type: Progress Notes Filed: 08/13/2024 13:36 Note Text: No need for f/u with the diarrhea. I would reach out to her and make sure she plans to f/u with her PSYCHOLOGIST INDUSTRIAL ORGANIZATIONAL for the ovarian cysts. [facility] 08-13-2024 History of Present illness Narrative No need for f/u with the diarrhea. I would reach out to her and make sure she plans to f/u with her PSYCHOLOGIST INDUSTRIAL ORGANIZATIONAL for the ovarian cysts. Scan on 08/10/2024 12:27 AM by Provider, JOSE Abarca: Consultation - Emergency Medicine Scan on 08/10/2024 2:17 PM by Tevin Mensah PA-C: Discharge Summary Do you want ER follow up? Dulce Maria Martinez MA documented in this encounter [facility] 08-13-2024 Note HNO ID: [id number] Author: DULCE MARIA MARTINEZ MA Service: ? Author Type: Produce Laborer Type: Progress Notes Filed: 08/13/2024 13:26 Note Text: Scan on 08/10/2024 12:27 AM by Tevin Mensah PA-C: Consultation - Emergency Medicine Scan on 08/10/2024 2:17 PM by Tevin Mensah PA-C: Discharge Summary Do you want ER follow up? Dulce Maria Martinez MA [facility] 08-10-2024 Consult note [facility] 08-10-2024 Progress note Note Date/Time August 10, 2024 12:12pm [facility] Medical Records Department [address] [place] [address] Progress Note - Hospitalist 08/10/24 0721 MR#: [id number] Acct: [id number] Name: NOEMI ALONSO Rep #:[id number] : 1965 59 From: Austin Mendez DO PCP: Dr. Osvaldo Sue MD Status:ADM IN Location: [place] [address] Subjective Subjective Feeling better. No further BMs. Objective Data Objective Data Vital Signs: Vital Signs Temp Pulse Resp BP Pulse Ox O2 Del Method 36.5 C L 65 16 132/76 H 95 Room Air 08/10/24 04:51 08/10/24 04:51 08/10/24 04:51 08/10/24 04:51 08/10/24 04:51 08/10/24 04:51 Oxygen Delivery Method Room Air Weight: 74.7 kg Body Mass Index (BMI) 31.1 Intake & Output: Intake and Output for Last 24 Hours 08/08/24 08/09/24 08/10/24 23:59 23:59 23:59 Intake Total 1260 / 1310 1200 / 1200 Balance 1260 / 1310 1200 / 1200 Lab / Micro Data 08/10/24 05:36 08/10/24 05:36 Labs: Laboratory Results - last 24 hr 08/09/24 17:15: WBC 14.7 H, RBC 5.04, Hgb 16.1 H, Hct 45.8, MCV 90.9, MCH 31.9, MCHC 35.2, RDW Std Deviation 42.9, RDW Coeff of Kenji 13.0, Plt Count 330, MPV 10.2, Immature Gran % (Auto) 0.400, Neut % (Auto) 64.3, Lymph % (Auto) 27.7, Warren % (Auto) 7.2, Eos % (Auto) 0.0, Baso % (Auto) 0.4, Absolute Neuts (auto) 9.4 H, Absolute Lymphs (auto) 4.07, Nucleated RBC % 0, Sodium 146 H, Potassium 2.9 L, Chloride 104, Carbon Dioxide 26.2, Anion Gap 16 H, BUN 13, Creatinine 0.76, Estim Creat Clear Calc 80.94, Est GFR (MDRD) Non-Af 91, BUN/Creatinine Ratio 17.2, Glucose 131 H, Lactic Acid 2.0, Calcium 10.2, Magnesium 2.1, TSH 1.210 08/09/24 18:15: Urine Color Yellow, Urine Clarity Cloudy, Urine pH 6.5, Ur Specific [place] 1.015, Urine Protein 30 H, Urine Glucose (UA) Normal, Urine Ketones 15 H, Urine Occult Blood 10 H, Urine Nitrite Negative, Urine Bilirubin Negative, Urine Urobilinogen 4 H, Ur Leukocyte Esterase 25 H, Urine RBC 0-5 SEEN, Urine WBC 5-10 SEEN, Ur Squamous Epith Cells 10-25 SEEN, Urine Bacteria 1+, Urine Mucus 3+ 08/09/24 21:31: Lactic Acid 1.7 08/10/24 05:36: WBC 14.3 H, RBC 4.74, Hgb 15.0, Hct 44.9, MCV 94.7, MCH 31.6, MCHC 33.4 D, RDW Std Deviation 45.5 H, RDW Coeff of Kenji 13.1, Plt Count 293, MPV10.7, Immature Gran % (Auto) 0.300, Neut % (Auto) 53.2, Lymph % (Auto) 38.7, Warren % (Auto) 6.4, Eos % (Auto) 0.7, Baso % (Auto) 0.7, Absolute Neuts (auto) 7.6, Absolute Lymphs (auto) 5.52 H, Nucleated RBC % 0 Radiography Diagnostic Testing: Radiology Impression Abdomen/Pelvis CT 08/09/24 18:31 IMPRESSION: 1. No acute intra-abdominal abnormality. 2. Mild hepatic steatosis. 3. Cystic lesions in both ovaries, the largest measuring 4.3 cm. Recommend nonemergent pelvic ultrasound per ACR white paper guidelines. 4. Solid pulmonary nodules measuring up to 4 mm in the right lung, consider CT chest in 12 months if patient is at high risk for malignancy per Fleischner society guidelines. Reading Location: [id number] Physical Exam Const alert and no apparent distress HEENT head/scalp atraumatic and moist oral mucous membranes Resp normal respiratory effort, no retractions, no use of accessory muscles and clearto auscultation bilaterally Cardio regular rate, regular rhythm, S1 normal heart sound and S2 normal heart sound GI normal to inspection, nondistended, normoactive bowel sounds, soft to palpation,non-tender and non-distended Neuro Sensorium / Orientation: awake and alert Assessment & Plan Assessment/Plan (1) Gastroenteritis: PLAN: Ongoing several days prior to arrival. CT negative. enteric panel ordered, but not collected. supportive mgmt. advance diet, if tolerates, then could be discharged (2) Acute hypokalemia: PLAN: 2/2 gastroenteritis replaced earlier. monitor. PLAN: Plan Abnormal urinalysis: 5-10 WBCs. UTI ruled out. DC abx. VTE prophylaxis: LMWH Charges/Coding Visit Charges Inpatient E&M: 24935 Subs Hosp L2 08/10/24 1212 <Electronically signed by Austin Mendez DO> Cosigner Signature (if applicable): CC: ~ Signed [facility] Work Phone: 1(711) 628-983705-09-2025 Discharge summary [facility] Medical Records Department [address] [place] [address] Discharge Summary 08/10/24 1400 MR#: [id number] Acct: [id number] Name: NOEMI ALONSO Rep #:[id number] : 1965 59 From: Austin Mendez DO PCP: Dr. Osvaldo Sue MD Status:ADM IN Location: [id number] Providers Date of Admission: 08/09/24 Primary Care Physician: Dr. Osvaldo Sue MD Reason For Visit: VGE, N/V/D, HYPOKALEMIA, UTI & MIGRAINE RICK Diagnosis Discharge Diagnosis (1) Gastroenteritis: Status: Acute Code(s): K52.9 - Noninfective gastroenteritis and colitis, unspecified Plan: Ongoing several days prior to arrival. Suspect due to viral gastroenteritis. CT negative. enteric panel ordered, but not collected. supportive mgmt. Patient's tolerated her diet. WIill sc home (2) Acute hypokalemia: Status: Acute Code(s): E87.6 - Hypokalemia Plan: 2/ gastroenteritis replaced earlier. monitor. Plan Abnormal urinalysis: 5-10 WBCs. UTI ruled out. DC abx. VTE prophylaxis: LMWH Medications at Discharge Home Medications propranolol 160 mg capsule,24 hr,extended release 160 mg PO DAILY 05/03/19 famotidine 20 mg tablet 20 mg PO BID #60 tabs 05/04/19 naproxen 500 mg tablet 500 mg PO BID #14 tabs 04/15/20 atorvastatin 20 mg tablet 20 mg PO QHS 08/19/22 loratadine 10 mg tablet 10 mg PO DAILY 08/19/22 omeprazole 40 mg capsule,delayed release 40 mg PO DAILY 08/19/22 sumatriptan succinate 6 mg/0.5 mL subcutaneous pen injector 6 mg subcut Q1-4H PRN migraine hjuzfeal36/18/23 gabapentin 300 mg capsule 300 mg PO TID 08/09/24 ondansetron HCl 4 mg tablet 4 mg PO Q6H PRN nausea and vomiting 08/09/24 trazodone 50 mg tablet 50 mg PO QHS 08/09/24 Hospital Course Operations None Summary of Care Provided Minutes Spent on Discharge: 32 Hospital Course: Patient presents with 4 days of nausea vomiting diarrhea. Patient presented here and started on IV fluids and overall better. Patient has since tolerated diet. Patient is doing well and be dischargedhome. We did order enteric panelbut that was not collected as patient had no further bowel moods while she was in the hospital. I suspect patient may have had a viral gastroenteritis, particularly norovirus, which been supportive management. Weight / BMI Weight Weight: 74.7 kg Body Mass Index (BMI) 31.1 ABG / Lab / Microbiology Data 08/10/24 05:36 08/10/24 05:36 Laboratory: Laboratory Results - last 24 hr 08/09/24 17:15: WBC 14.7 H, RBC 5.04, Hgb 16.1 H, Hct 45.8, MCV 90.9, MCH 31.9, MCHC 35.2, RDW Std Deviation 42.9, RDW Coeff of Kenji 13.0, Plt Count 330, MPV 10.2, Immature Gran % (Auto) 0.400, Neut %(Auto) 64.3, Lymph % (Auto) 27.7, Warren % (Auto) 7.2, Eos % (Auto) 0.0, Baso % (Auto) 0.4, Absolute Neuts (auto) 9.4 H, Absolute Lymphs (auto) 4.07, Nucleated RBC % 0, Sodium 146 H, Potassium 2.9 L, Chloride 104, Carbon Dioxide 26.2, Anion Gap 16 H, BUN 13, Creatinine 0.76, Estim Creat Clear Calc 80.94, Est GFR (MDRD) Non-Af 91, BUN/Creatinine Ratio 17.2, Glucose 131 H, Lactic Acid 2.0, Calcium 10.2, Magnesium 2.1, TSH 1.210 08/09/24 18:15: Urine Color Yellow, Urine Clarity Cloudy, Urine pH 6.5, Ur Specific [place] 1.015, Urine Protein 30 H, Urine Glucose (UA) Normal, Urine Ketones 15 H, Urine Occult Blood 10 H, Urine Nitrite Negative, Urine Bilirubin Negative, Urine Urobilinogen 4 H, Ur Leukocyte Esterase 25 H, Urine RBC 0-5 SEEN, Urine WBC 5-10 SEEN, Ur Squamous Epith Cells 10-25 SEEN, Urine Bacteria 1+, Urine Mucus 3+ 08/09/24 21:31: Lactic Acid 1.7 08/10/24 05:36: WBC 14.3 H, RBC 4.74, Hgb 15.0, Hct 44.9, MCV 94.7, MCH 31.6, MCHC 33.4 D, RDW Std Deviation 45.5 H, RDW Coeff of Kenji 13.1, Plt Count 293, MPV10.7, Immature Gran % (Auto) 0.300, Neut % (Auto) 53.2, Lymph % (Auto) 38.7, Warren % (Auto) 6.4, Eos % (Auto) 0.7, Baso % (Auto) 0.7, AbsoluteNeuts (auto) 7.6, Absolute Lymphs (auto) 5.52 H, Nucleated RBC % 0, Sodium 145, Potassium 3.9, Chloride 113 H, Carbon Dioxide 22.3, Anion Gap 10, BUN 10, Creatinine 0.70,Estim Creat Clear Calc 81.97,Est GFR (MDRD) Non-Af 100, BUN/Creatinine Ratio 14.2, Glucose 91, Calcium 9.2, Phosphorus 1.6 L, Total Bilirubin 1.49 H, AST 99 H, ALT 115 H, Alkaline Phosphatase 79, Total Protein 7.6, Albumin 4.6, G lobulin 3.1, Albumin/Globulin Ratio 1.5 Radiography Diagnostic Testing: Radiology Impression Abdomen/Pelvis CT 08/09/24 18:31 IMPRESSION: 1. No acute intra-abdominal abnormality. 2. Mild hepatic steatosis. 3. Cystic lesions in both ovaries, the largest measuring 4.3 cm. Recommend nonemergent pelvic ultrasound per ACR white paper guidelines. 4. Solid pulmonary nodules measuring up to 4 mm in the right lung, consider CT chest in 12 months if patient is at high risk for malignancy per Fleischner society guidelines. Reading Location: [id number] D/C Instructions Discharge Diet: No restrictions (bland diet, advance as tolerated. ) DC O2, CPAP, BIPAP Needs Home O2 Discharge instructions: No Meaningful Use Info Meaningful Use Meaningful Use Diagnoses (Choose all that apply): None applicable Ischemic Stroke Statin Dosing Therapy Reference: STATIN DOSE THERAPY REFERENCE: * Patients > 75 years receive moderate or high dose statin therapy. * Patients 75 years or YOUNGER should receive HIGH intensity statin dose unless contraindicated. You will be required to document reason for non-treatment if statin daily dose does not meet guidelines. HIGH DOSE STATIN THERAPY DAILY Atorvastatin > than or = to 40 mg Rosuvastatin > than or = to 20 mg Amlodipine + Atorvastatin > than or = to 2.5/40 mg Ezetimibe + Simvastatin 10/80 mg Simvastatin 80mg Discharge Plan Admission Admit Date/Time: 08/09/24 20:07 Primary Reason for Your Visit: gastroenteritis Attending Provider: Austin Mendez Primary Care Provider: Osvaldo Sue Consulting Providers: Len Lafleur Discharge Orders/Prescriptions Prescriptions: Continued atorvastatin 20 mg tablet 20 mg PO QHS loratadine 10 mg tablet 10 mg PO DAILY omeprazole 40 mg capsule,delayed release(DR/EC) 40 mg PO DAILY sumatriptan succinate 6 mg/0.5 mL pen injector 6 mg subcut Q1-4H PRN (Reason: migraine headache) Rx Instructions: do not exceed 2 doses in a 24 hour period propranolol 160 MG capsule,extended release 24 hr 160 mg PO DAILY famotidine 20 MG tablet 20 mg PO BID Qty: 60 0RF naproxen 500 MG tablet 500 mg PO BID Qty: 14 0RF trazodone 50 mg tablet 50 mg PO QHS ondansetron HCl 4 mg tablet 4 mg PO Q6H PRN (Reason: nausea and vomiting) gabapentin 300 mg capsule 300 mg PO TID Referrals / Follow Up: Osvaldo Sue MD [Primary Care Provider] - Charges/Coding Visit Charges Inpatient E&M: 92480 Disch Hosp >30min 08/10/24 1407 Cosigner Signature (if applicable): CC: Dr. Austin Mendez DO; Dr. Osvaldo Sue MD~ Signed [facility]05-09-2025 [facility] Medical Records Department [address] [place] [id number] Discharge Summary 08/10/24 1400 MR#: [id number] Acct: [id number] Name: NOEMI ALONSO Rep #: [id number] : 1965 59 From: Austin Mendez DO PCP: Dr. Osvaldo Sue MD Status:ADM IN [id number] Providers Date of Admission: 08/09/24 Primary Care Physician: Dr. Osvaldo Sue MD Reason For Visit: VGE, N/V/D, HYPOKALEMIA, UTI MIGRAINE RCIK Diagnosis Discharge Diagnosis (1) Gastroenteritis: Status: Acute Code(s): K52.9 - Noninfective gastroenteritis and colitis, unspecified Plan: Ongoing several days prior to arrival. Suspect due to viral gastroenteritis. CT negative. enteric panel ordered, but not collected. supportive mgmt. Patient's tolerated her diet. WIill dc home (2) Acute hypokalemia: Status: Acute Code(s): E87.6 - Hypokalemia Plan: 2/2 gastroenteritis replaced earlier. monitor. Plan Abnormal urinalysis: 5-10 WBCs. UTI ruled out. DC abx. VTE prophylaxis: LMWH Medications at Discharge Home Medications propranolol 160 mg capsule,24 hr,extended release 160 mg PO DAILY 05/03/19 famotidine 20 mg tablet 20 mg PO BID #60 tabs 05/04/19 naproxen 500 mg tablet 500 mg PO BID #14 tabs 04/15/20 atorvastatin 20 mg tablet 20 mg PO QHS 08/19/22 loratadine 10 mg tablet 10 mg PO DAILY 08/19/22 omeprazole 40 mg capsule,delayed release 40 mg PO DAILY 08/19/22 sumatriptan succinate 6 mg/0.5 mL subcutaneous pen injector 6 mg subcut Q1-4H PRN migraine headache 08/19/22 gabapentin 300 mg capsule 300 mg PO TID 08/09/24 ondansetron HCl 4 mg tablet 4 mg PO Q6H PRN nausea and vomiting 08/09/24 trazodone 50 mg tablet 50 mg PO QHS 08/09/24 Hospital Course Operations None Summary of Care Provided Minutes Spent on Discharge: 32 Hospital Course: Patient presents with 4 days of nausea vomiting diarrhea. Patient presented here and started on IV fluids and overall better. Patient has since tolerated diet. Patient is doing well and be discharged home. We did order enteric panel but that was not collected as patient had no further bowel moods while she was in the hospital. I suspect patient may have had a viral gastroenteritis, particularly norovirus, which been supportive management. Weight / BMI Weight Weight: 74.7 kg Body Mass Index (BMI) 31.1 ABG / Lab / Microbiology Data 08/10/24 05:36 08/10/24 05:36 Laboratory: Laboratory Results - last 24 hr 08/09/24 17:15: WBC 14.7 H, RBC 5.04, Hgb 16.1 H, Hct 45.8, MCV 90.9, MCH 31.9, MCHC 35.2, RDW Std Deviation 42.9, RDW Coeff of Kenji 13.0, Plt Count 330, MPV 10.2, Immature Gran % (Auto) 0.400, Neut % (Auto) 64.3, Lymph % (Auto) 27.7, Warren % (Auto) 7.2, Eos % (Auto) 0.0, Baso % (Auto) 0.4, Absolute Neuts (auto) 9.4 H, Absolute Lymphs (auto) 4.07, Nucleated RBC % 0, Sodium 146 H, Potassium 2.9 L, Chloride 104, Carbon Dioxide 26.2, Anion Gap 16 H, BUN 13, Creatinine 0.76, Estim Creat Clear Calc 80.94, Est GFR (MDRD) Non-Af 91, BUN/Creatinine Ratio 17.2, Glucose 131 H, Lactic Acid 2.0, Calcium 10.2, Magnesium 2.1, TSH 1.210 08/09/24 18:15: Urine Color Yellow, Urine Clarity Cloudy, Urine pH 6.5, Ur Specific [place] 1.015, U rine Protein 30 H, Urine Glucose (UA) Normal, Urine Ketones 15 H, Urine Occult Blood 10 H, Urine Nitrite Negative, Urine Bilirubin Negative, Urine Urobilinogen 4 H, Ur Leukocyte Esterase 25 H, Urine RBC 0-5 SEEN, Urine WBC 5-10 SEEN, Ur Squamous Epith Cells 10-25 SEEN, Urine Bacteria 1+, Urine Mucus 3+ 08/09/24 21:31: Lactic Acid 1.7 08/10/24 05:36: WBC 14.3 H, RBC 4.74, Hgb 15.0, Hct 44.9, MCV 94.7, MCH 31.6, MCHC 33.4 D, RDW Std Deviation 45.5 H, RDW Coeff of Kenji 13.1, Plt Count 293, MPV 10.7, Immature Gran % (Auto) 0.300, Neut % (Auto) 53.2, Lymph % (Auto) 38.7, Warren % (Auto) 6.4, Eos % (Auto) 0.7, Baso % (Auto) 0.7, Absolute Neuts (auto) 7.6, Absolute Lymphs (auto) 5.52 H, Nucleated RBC % 0, Sodium 145, Potassium 3.9, C hloride 113 H, Carbon Dioxide 22.3, Anion Gap 10, BUN 10, Creatinine 0.70, Estim Creat Clear Calc 81.97, Est GFR (MDRD) Non-Af 100, BUN/Creatinine Ratio 14.2, Glucose 91, Calcium 9.2, Phosphorus 1.6 L, Total Bilirubin 1.49 H, AST 99 H, ALT 115 H, Alkaline Phosphatase 79, Total Protein 7.6, Albumin 4.6, Globulin 3.1, Albumin/Globulin Ratio 1.5 Radiography Diagnostic Testing: Radiology Impression Abdomen/Pelvis CT 08/09/24 18:31 IMPRESSION: 1. No acute intra-abdominal abnormality. 2. Mild hepatic steatosis. 3. Cystic lesions in both ovaries, the largest measuring 4.3 cm. Recommend nonemergent pelvic ultrasound per ACR white paper guidelines. 4. Solid pulmonary nodules measuring up to 4 mm in the right lung, consider CT chest in 12 months if patient is at high risk for malignancy per Fleischner society guidelines. Electronically Signed By: Du Guevara on (more content not included)...[facility]05-09-2025 Progress note [facility] Medical Records Department [address] [place] [address] Progress Note - Hospitalist 08/10/24 0721 MR#: [id number] Acct: [id number] Name: NOEMI ALONSO Rep #:[id number] : 1965 59 From: Austin Mendez DO PCP: Dr. Osvaldo uSe MD Status:ADM IN [id number] Subjective Subjective Feeling better. No further BMs. Objective Data Objective Data Vital Signs: Vital Signs Temp Pulse Resp BP Pulse Ox O2 Del Method 36.5 C L 65 16 132/76 H 95 Room Air 08/10/24 04:51 08/10/24 04:51 08/10/24 04:51 08/10/24 04:51 08/10/24 04:51 08/10/24 04:51 Oxygen Delivery Method Room Air Weight: 74.7 kg Body Mass Index (BMI) 31.1 Intake & Output: Intake and Output for Last 24 Hours 08/08/24 08/09/24 08/10/24 23:59 23:59 23:59 Intake Total 1260 / 1310 1200 / 1200 Balance 1260 / 1310 1200 / 1200 Lab / Micro Data 08/10/24 05:36 08/10/24 05:36 Labs: Laboratory Results - last 24 hr 08/09/24 17:15: WBC 14.7 H, RBC 5.04, Hgb 16.1 H, Hct 45.8, MCV 90.9, MCH 31.9, MCHC 35.2, RDW Std Deviation 42.9, RDW Coeff of Kenji 13.0, Plt Count 330, MPV 10.2, Immature Gran % (Auto) 0.400, Neut %(Auto) 64.3, Lymph % (Auto) 27.7, Warren % (Auto) 7.2, Eos % (Auto) 0.0, Baso % (Auto) 0.4, Absolute Neuts (auto) 9.4 H, Absolute Lymphs (auto) 4.07, Nucleated RBC % 0, Sodium 146 H, Potassium 2.9 L, Chloride 104, Carbon Dioxide 26.2, Anion Gap 16 H, BUN 13, Creatinine 0.76, Estim Creat Clear Calc 80.94, Est GFR (MDRD) Non-Af 91, BUN/Creatinine Ratio 17.2, Glucose 131 H, Lactic Acid 2.0, Calcium 10.2, Magnesium 2.1, TSH 1.210 08/09/24 18:15: Urine Color Yellow, Urine Clarity Cloudy, Urine pH 6.5, Ur Specific [place] 1.015, Urine Protein 30 H, Urine Glucose (UA) Normal, Urine Ketones 15 H, Urine Occult Blood 10 H, Urine Nitrite Negative, Urine Bilirubin Negative, Urine Urobilinogen 4 H, Ur Leukocyte Esterase 25 H, Urine RBC 0-5 SEEN, Urine WBC 5-10 SEEN, Ur Squamous Epith Cells 10-25 SEEN, Urine Bacteria 1+, Urine Mucus 3+ 08/09/24 21:31: Lactic Acid 1.7 08/10/24 05:36: WBC 14.3 H, RBC 4.74, Hgb 15.0, Hct 44.9, MCV 94.7, MCH 31.6, MCHC 33.4 D, RDW Std Deviation 45.5 H, RDW Coeff of Kenji 13.1, Plt Count 293, MPV10.7, Immature Gran % (Auto) 0.300, Neut % (Auto) 53.2, Lymph % (Auto) 38.7, Warren % (Auto) 6.4, Eos % (Auto) 0.7, Baso % (Auto) 0.7, AbsoluteNeuts (auto) 7.6, Absolute Lymphs (auto) 5.52 H, Nucleated RBC % 0 Radiography Diagnostic Testing: Radiology Impression Abdomen/Pelvis CT 08/09/24 18:31 IMPRESSION: 1. No acute intra-abdominal abnormality. 2. Mild hepatic steatosis. 3. Cystic lesions in both ovaries, the largest measuring 4.3 cm. Recommend nonemergent pelvic ultrasound per ACR white paper guidelines. 4. Solid pulmonary nodules measuring up to 4 mm in the right lung, consider CT chest in 12 months if patient is at high risk for malignancy per Fleischner society guidelines. Reading Location: [id number] Physical Exam Const alert and no apparent distress HEENT head/scalp atraumatic and moist oral mucous membranes Resp normal respiratory effort, no retractions, no use of accessory muscles and clearto auscultation bilaterally Cardio regular rate, regular rhythm, S1 normal heart sound and S2 normal heart sound GI normal to inspection, nondistended, normoactive bowel sounds, soft to palpation,non-tender and non-distended Neuro Sensorium / Orientation: awake and alert Assessment & Plan Assessment/Plan (1) Gastroenteritis: PLAN: Ongoing several days prior to arrival. CT negative. enteric panel ordered, but not collected. supportive mgmt. advance diet, if tolerates, then could be discharged (2) Acute hypokalemia: PLAN: 2/2 gastroenteritis replaced earlier. monitor. PLAN: Plan Abnormal urinalysis: 5-10 WBCs. UTI ruled out. DC abx. VTE prophylaxis: LMWH Charges/Coding Visit Charges Inpatient E&M: 44416 Subs Hosp L2 08/10/24 1212 Cosigner Signature (if applicable): CC: ~ Signed [facility]05-09-2025 NoteHNO ID: [id number] Author: BREANN DAVIS LPN Service: ? Author Type: LICENSED NURSE Type: Progress Notes Filed: 08/10/2024 09:47 Note Text: Scan on 08/10/2024 12:27 AM by ProviderTevin PA-C: Consultation - Emergency Medicine Scan on 08/10/2024 7:46 AM by Tevin Mensah PA-[facility] 08-10-2024 History of Present illness Narrative* Breann Davis LPN - 08/10/2024 9:47 AM EDT Scan on 08/10/2024 12:27 AM by ProviderTevin PA-C: Consultation - Emergency Medicine Scan on 08/10/2024 7:46 AM by ProviderTevin PA-C [facility] History and physical note Author Len Lazo [facility] Note Date/Time August 10, 2024 7:33am [facility] Medical Records Department [address] [place] [address] H&P Exam - Hospitalist 08/09/241924 MR#: [id number] Acct: [id number] Name: NOEMI ALONSO Rep #:[id number] : 1965 59 From: Len Rodrigez DO PCP: Dr. Osvaldo Sue MD Status:ADM IN Location: [id number] HPI - General General Date of Admission: 08/09/24 Date of Service: 08/09/24 Chief Complaint: Nausea, Vomiting and Diarrhea. HPI Narrative NOEMI ALONSO, is a 59 F with a past medical history of essential hypertension; onpropranolol, hyperlipidemia; on atorvastatin, overweight; with BMI of 28.3 this admission, former tobacco abuse; with subsequent lung nodules, CAD; s/p SD with history of negative [facility] (2014) @ [facility], history of aneurysm of Left subclavian artery, history of migraine headaches; on sumatriptan prn, depression; on trazodone, sertraline and amitriptyline, seasonal allergies; on loratadine, GERD; on omeprazole and famotidine, history of gastroenteritis, history of muscle spasms; on prn cyclobenzaprine BID prn and OA who presents to [facility] ER complaining of nausea, vomiting and diarrhea. Ms. Alonso reports her symptoms began approximately 5 days prior to admission with pain in her Right side and then 4 days ago she had nausea and vomiting withbilious emesis and nonbloody diarrhea. She went to [facility] where she had blood work and a CT scan of the abdomen and pelvis that was unremarkableand was subsequently discharged home. Unfortunately, she redeveloped her GI upset with nausea and vomiting she claims up to 10 times per day with frequent watery stools. She then began taking Imodium and has not had any further diarrhea. She also admits her abdominal pain has essentially resolved. She admits to lethargy, dyspnea on exertion and migraine headache. She denies recent sick contacts, recent antibiotics or significant travel. There was no report of fever, chills, weight loss, changes in vision, runny nose, sore throat, ear pain, chest pain, palpitations, heart racing, lower extremity edema,dysuria, hematuria, arthralgias, myalgias or rash. In the ER she underwent a CTscan of the abdomen pelvis that revealed no acute intra- abdominal abnormality with mild hepatic steatosis with cystic lesions in both ovaries with the largestmeasuring ~4.3 cm with nonemergent pelvic ultrasound recommended and solid pulmonary nodules measuring up to ~4 mm in the Right lung with recommendation toconsider CT of chest in 12 months. She was then diagnosed with suspected Viral Gastroenteritis; with Nausea, Vomiting and bilious emesis complicated by Acute Hypokalemia of 2.9 mmol/L present on admission along with UA positive for Acute Cystitis; without hematuria with Leukocytosis of 14.7 K present on admission andshpal was then admitted to the general medical floor for ongoing care for stay that is expected to extend beyond 2 midnights. [facility] Medical History Old myocardial infarction Mixed hyperlipidemia GERD (gastroesophageal reflux disease) Essential hypertension Lung nodules Aneurysm of left subclavian artery Chest pain Dehydration Former tobacco use Migraine Hypertension Elevated LFTs Hypokalemia Gastroenteritis No significant past medical history Home Medications ?Medication ?Instructions ?Recorded ?Last Taken ?Type propranolol 160 mg capsule,24 160 mg PO DAILY 05/03/19 Unknown History hr,extended release famotidine 20 mg tablet 20 mg PO BID #60 tabs Unknown Rx naproxen 500 mg tablet 500 mg PO BID #14 tabs 04/15 Unknown Rx atorvastatin 20 mg tablet 20 mg PO QHS 08/19/22 Unknow n History loratadine 10 mg tablet 10 mg PO DAILY 08/19/22 Unkn own History omeprazole 40 mg capsule,delayed 40 mg PO DAILY Unknown History release sumatriptan succinate 6 mg/0.5 mL 6 mg subcut Q1-4H NJ N migraine 08/19/22 Unknown History subcutaneous pen injector headache gabapentin 300 mg capsule 300 mg PO TID 08/09/24 Unkno wn History ondansetron HCl 4 mg tablet 4 mg PO Q6H PRN nausea and vomiting 08/09/24 Unknown History trazodone 50 mg tablet 50 mg PO QHS 08/09/24 Unknow n History Allergy/AdvReac Type Severity Reaction Status Date / Time No Known Allergies Allergy Verified 08/09/24 15:47 Surgical History History of left heart catheterization (LHC) (~04/29/14) Social History Smoking Status: Former smoker ROS ROS Narrative Review of Systems: Constitutional: Patient denies fever or chills. Eyes: Patient denies changes in vision or discharge from eyes. ENT: Patient denies runny nose, sore throat or ear pain. Resp: Patient admits to dyspnea on exertion. CV: Patient denies chest pain, palpitations, heart racing or LE edema. GI: Patient admits to abdominal pain, watery diarrhea and nausea with vomiting as per HPI. : Patient denies dysuria or hematuria. MSK: Patient denies arthralgias or myalgias. Skin: Patient denies rash, abscess, wounds or jaundice. Psych: Patient denies symptoms of uncontrolled depression or anxiety. Neuro: Patient admits to migraine headache but she denies paresthesias or focal weakness. Allergy: Patient denies lip swelling, tongue swelling or urticaria. Hematology: Patient denies easy bleeding or easy bruisability. Endocrinology: Patient denies polyuria, polydipsia, polyphagia or heat/cold intolerance. 14 point ROS otherwise negative except for positives noted above in HPI. Vital Signs Vital Signs Vital Signs: 08/09/24 15:45 08/09/24 17:45 08/09/24 19:00 Temperature 96.3 F L Temperature Source Temporal Pulse Rate 92 53 L 63 Respiratory Rate 19 H 18 18 Blood Pressure 187/107 H 151/82 H Blood Pressure Mean 133 100 Pulse Ox 98 99 97 Oxygen Delivery Method Room Air Weight Weight: 165 lb 2.02 oz Body Mass Index (BMI) 28.3 Physical Exam Const alert and oriented x3 Constitutional Narrative: Mild distress noted. General Appearance: cooperative HEENT normocephalic, head/scalp atraumatic and hearing grossly normal bilaterally HEENT Narrative: Mucous membranes dry. Eyes PERRL, EOMs intact bilaterally and conjunctivae normal Neck no lymphadenopathy, supple and no JVD Resp normal respiratory effort, no retractions, no use of accessory muscles and clearto auscultation bilaterally Cardio regular rate and regular rhythm GI normal to inspection, nondistended, normoactive bowel sounds, soft to palpation,non-tender and non-distended Extremity normal to inspection, full ROM and no clubbing, cyanosis or edema Skin Skin Narrative: Patient has no evidence of rash, abscess, wounds or jaundice. Neuro oriented x3, CN's II-XII intact bilaterally, moves all extremities and no focal motor deficits Sensorium / Orientation: awake, alert, oriented to person, oriented to place andoriented to time Speech: speech normal Psych Mood & Affect: anxious Results Medical Records Data Attestation: I reviewed the patient's medical records Lab / Micro Data Attestation: I reviewed the patient's lab results. 08/10/24 05:36 08/09/24 17:15 Labs: Laboratory Results - last 24 hr 08/09/24 17:15: WBC 14.7 H, RBC 5.04, Hgb 16.1 H, Hct 45.8, MCV 90.9, MCH 31.9, MCHC 35.2, RDW Std Deviation 42.9, RDW Coeff of Kenji 13.0, Plt Count 330, MPV 10.2, Immature Gran % (Auto) 0.400, Neut % (Auto) 64.3, Lymph % (Auto) 27.7, Warren % (Auto) 7.2, Eos % (Auto) 0.0, Baso % (Auto) 0.4, Absolute Neuts (auto) 9.4 H, Absolute Lymphs (auto) 4.07, Nucleated RBC % 0, Sodium 146 H, Potassium 2.9 L, Chloride 104, Carbon Dioxide 26.2, Anion Gap 16 H, BUN 13, Creatinine 0.76, Estim Creat Clear Calc 80.94, Est GFR (MDRD) Non-Af 91, BUN/Creatinine Ratio 17.2, Glucose 131 H, Lactic Acid 2.0, Calcium 10.2 08/09/24 18:15: Urine Color Yellow, Urine Clarity Cloudy, Urine pH 6.5, Ur Specific [place] 1.015, Urine Protein 30 H, Urine Glucose (UA) Normal, Urine Ketones 15 H, Urine Occult Blood 10 H, Urine Nitrite Negative, Urine Bilirubin Negative, Urine Urobilinogen 4 H, Ur Leukocyte Esterase 25 H, Urine RBC 0-5 SEEN, Urine WBC 5-10 SEEN, Ur Squamous Epith Cells 10-25 SEEN, Urine Bacteria 1+, Urine Mucus 3+ Imaging Radiology Impression Abdomen/Pelvis CT 08/09/24 18:31 IMPRESSION: 1. No acute intra-abdominal abnormality. 2. Mild hepatic steatosis. 3. Cystic lesions in both ovaries, the largest measuring 4.3 cm. Recommend nonemergent pelvic ultrasound per ACR white paper guidelines. 4. Solid pulmonary nodules measuring up to 4 mm in the right lung, consider CT chest in 12 months if patient is at high risk for malignancy per Fleischner society guidelines. Reading Location: [id number] Assessment & Plan Assessment/Plan (1) Gastroenteritis: (2) Acute hypokalemia: (3) Acute cystitis without hematuria: (4) Migraine: QUALIFIERS: Intractability: not intractable Migraine type: unspecified Status migrainosus presence: without status migrainosus Qualified Code(s): G43.909 - Migraine, unspecified, not intractable, without status migrainosus (5) Ovarian cyst: QUALIFIERS: Laterality: bilateral Qualified Code(s): N83.201 - Unspecified ovarian cyst, right side; N83.202 - Unspecified ovarian cyst, left side (6) Pulmonary nodules/lesions, multiple: (7) Tobacco abuse, in remission: PLAN: Plan 1. Suspected Viral Gastroenteritis; with nausea and vomiting with bilious emesis - Admit to general medical floor under aspiration and enteric precautions. Give copious IVF plus prn IV ondansetron for nausea and vomiting. Give promethazine IM prn for breakthrough nausea. Give ketorolac IV prn for [id number] (level 1-5/10) pain or fever. Give morphine IV prn for severe (level 6-10/10) pain. Finally, stool studies are pending with patient started onempiric IV metronidazole until C. difficile ruled out. 2. Acute Hypokalemia of 2.9 mmol/L present on admission due to #1 - Give supplemental IV and oral KCl and then recheck level in AM to confirm repletion. 3. Acute Cystitis; without hematuria with Leukocytosis of 14.7 K present on admission complicating #1 & #2 - Start empiric IV ceftriaxone 1g IV daily and await culture and sensitivity data. 4. Migraine Headache compounding #1 - #3 - Continue prn sumatriptan as previous. 5. CT evidence of Cystic Lesions in both Ovaries; with the largest measuring ~4.3 cm with radiologist recommending pelvic ultrasound - Patient will need to be set up with outpatient pelvic ultrasound once her acute illness resolves. 6. CT evidence of Pulmonary Nodules measuring up to ~4 mm in the Right lung, consider CT chest in 12 months if patient is at high risk for malignancy per Fleischner society guidelines in the setting of previous chronic tobacco abuse -Noted. 7. Essential hypertension; on propranolol - Maintain current regimen plus give prn hydralazine IV for systolic blood pressure > 160 mmHg. 8. Hyperlipidemia; on atorvastatin - Resume statin. 9. Overweight; with BMI of 28.3 this admission - Weight loss will be recommended. Check TSH. 10. CAD; s/p SD [facility] - [facility]. 11. History of aneurysm of Left subclavian artery - Noted. 12. Depression; on trazodone, sertraline and amitriptyline - Continue current treatment. 13. Seasonal allergies; on loratadine - Resume loratadine as before. 14. GERD; on omeprazole and famotidine - Maintain PPI IV in light of #1. 15. History of muscle spasms; on prn cyclobenzaprine BID prn - Continue presenttherapy. 16. OA - Stable. 17. DVT prophylaxis - Enoxaparin 40 mg sq daily plus SCD's. Total time: Approximately (but not less than) 75 minutes. Charges/Coding Visit Charges Inpatient E&M: 15447 Init Hosp L3 08/10/24 2476 <Electronically signed by Len Lafleur DO> Cosigner Signature (if applicable): CC: Dr. Len Lafleur DO; Dr. Osvaldo Sue MD~ Signed [facility] Work Phone: 1(149) 981-982505-09-2025 History and physical note [facility] Medical Records Department [address] [place] [address] H&P Exam - Hospitalist 08/09/241924 MR#: [id number] Acct: [id number] Name: NOEMI ALONSO Rep #:[id number] : 1965 59 From: Len Rodrigez DO PCP: Dr. Osvaldo Sue MD Status:ADM IN Location: KS3 [id number] HPI - General General Date of Admission: 08/09/24 Date of Service: 08/09/24 Chief Complaint: Nausea, Vomiting and Diarrhea. HPI Narrative NOEMI ALONSO, is a 59 F with a past medical history of essential hypertension; onpropranolol, hyperlipidemia; on atorvastatin, overweight; with BMI of 28.3 this admission, former tobacco abuse; with subsequent lung nodules, CAD; s/p SD with history of negative [facility] (2014) @ [facility], history ofaneurysm of Left subclavian artery, history of migraine headaches; on sumatriptan prn, depression; on trazodone, sertraline and amitriptyline, seasonal allergies; on loratadine, GERD; on omeprazole and famotidine, history of gastroenteritis, history of muscle spasms; on prn cyclobenzaprine BID prn and OA who presents to [facility] ER complaining of nausea, vomiting and diarrhea. Ms. Alonso reports her symptoms began approximately 5 days prior to admission with pain in her Right side and then 4 days ago she had nausea and vomiting withbilious emesis and nonbloody diarrhea. She went to [facility] where she had blood work and a CT scan of the abdomen and pelvis thatwas unremarkableand was subsequently discharged home. Unfortunately, she redeveloped her GI upset with nausea and vomiting she claims up to 10 times per day with frequent watery stools. She then began taking Imodium and has not had any further diarrhea. She also admits her abdominal pain has essentially resolved. She admits to lethargy, dyspnea on exertion and migraine headache. She denies recentsick contacts, recent antibiotics or significant travel. There was no report of fever, chills, weight loss, changes in vision, runny nose, sore throat, ear pain, chest pain, palpitations, heart racing, lower extremity edema,dysuria, hematuria, arthralgias, myalgias or rash. In the ER she underwent a CTscan of the abdomen pelvis that revealed no acute intra-abdominal abnormality with mild hepatic steatosis with cystic lesions in both ovaries with the largestmeasuring ~4.3 cm with nonemergent pelvic ultrasound recommended and solid pulmonary nodules measuring up to ~4 mm in the Right lung with r ecommendation toconsider CT of chest in 12 months. She was then diagnosed with suspected Viral Gastroenteritis; with Nausea, Vomiting and bilious emesis complicated by Acute Hypokalemia of 2.9 mmol/Lpresent on admission along with UA positive for Acute Cystitis; without hematuria with Leukocytosisof 14.7 K present on admission andshe was then admitted to the general medical floor for ongoing care for stay that is expected to extend beyond 2 midnights. [facility] Medical History Old myocardial infarction Mixed hyperlipidemia GERD (gastroesophageal reflux disease) Essential hypertension Lung nodules Aneurysm of left subclavian artery Chest pain Dehydration Former tobacco use Migraine Hypertension Elevated LFTs Hypokalemia Gastroenteritis No significant past medical history Home Medications ?Medication ?Instructions ?Recorded ?Last Taken ?Type propranolol 160 mg capsule,24 160 mg PO DAILY 05/03/19 Unknown History hr,extended release famotidine 20 mg tablet 20 mg PO BID #60 tabs Unknown Rx naproxen 500 mg tablet 500 mg PO BID #14 tabs 04/15 Unknown Rx atorvastatin 20 mg tablet 20 mg PO QHS 08/19/22 Unknow n History loratadine 10 mg tablet 10 mg PO DAILY 08/19/22 Unkn own History omeprazole 40 mg capsule,delayed 40 mg PO DAILY Unknown History release sumatriptan succinate 6 mg/0.5 mL 6 mg subcut Q1-4H NJ N migraine 08/19/22 Unknown History subcutaneous pen injector headache gabapentin 300 mg capsule 300 mg PO TID 08/09/24 Unkno wn History ondansetron HCl 4 mg tablet 4 mg PO Q6H PRN nausea and vomiting 08/09/24 Unknown History trazodone 50 mg tablet 50 mg PO QHS 08/09/24 Unknow n History Allergy/AdvReac Type Severity Reaction Status Date / Time No Known Allergies Allergy Verified 08/09/24 15:47 Surgical History History of left heart catheterization (LHC) (~04/29/14) Social History Smoking Status: Former smoker ROS ROS Narrative Review of Systems: Constitutional: Patient denies fever or chills. Eyes: Patient denies changes in vision or discharge from eyes. ENT: Patient denies runny nose, sore throat or ear pain. Resp: Patient admits to dyspnea on exertion. CV: Patient denies chest pain, palpitations, heart racing or LE edema. GI: Patient admits to abdominal pain, watery diarrhea and nausea with vomiting as per HPI. : Patient denies dysuria or hematuria. MSK: Patient denies arthralgias or myalgias. Skin: Patient denies rash, abscess, wounds or jaundice. Psych: Patient denies symptoms of uncontrolled depression or anxiety. Neuro: Patient admits to migraine headache but she denies paresthesias or focal weakness. Allergy: Patient denies lip swelling, tongue swelling or urticaria. Hematology: Patient denies easy bleeding or easy bruisability. Endocrinology: Patient denies polyuria, polydipsia, polyphagia or heat/cold intolerance. 14 point ROS otherwise negative except for positives noted above in HPI. Vital Signs Vital Signs Vital Signs: 08/09/24 15:45 08/09/24 17:45 08/09/24 19:00 Temperature 96.3 F L Temperature Source Temporal Pulse Rate 92 53 L 63 Respiratory Rate 19 H 18 18 Blood Pressure 187/107 H 151/82 H Blood Pressure Mean 133 100 Pulse Ox 98 99 97 Oxygen Delivery Method Room Air Weight Weight: 165 lb 2.02 oz Body Mass Index (BMI) 28.3 Physical Exam Const alert and oriented x3 Constitutional Narrative: Mild distress noted. General Appearance: cooperative HEENT normocephalic, head/scalp atraumatic and hearing grossly normal bilaterally HEENT Narrative: Mucous membranes dry. Eyes PERRL, EOMs intact bilaterally and conjunctivae normal Neck no lymphadenopathy, supple and no JVD Resp normal respiratory effort, no retractions, no use of accessory muscles and clearto auscultation bilaterally Cardio regular rate and regular rhythm GI normal to inspection, nondistended, normoactive bowel sounds, soft to palpation,non-tender and non-distended Extremity normal to inspection, full ROM and no clubbing, cyanosis or edema Skin Skin Narrative: Patient has no evidence of rash, abscess, wounds or jaundice. Neuro oriented x3, CN's II-XII intact bilaterally, moves all extremities and no focal motor deficits Sensorium / Orientation: awake, alert, oriented to person, oriented to place andoriented to time Speech: speech normal Psych Mood & Affect: anxious Results Medical Records Data Attestation: I reviewed the patient's medical records Lab / Micro Data Attestation: I reviewed the patient's lab results. 08/10/24 05:36 08/09/24 17:15 Labs: Laboratory Results - last 24 hr 08/09/24 17:15: WBC 14.7 H, RBC 5.04, Hgb 16.1 H, Hct 45.8, MCV 90.9, MCH 31.9, MCHC 35.2, RDW Std Deviation 42.9, RDW Coeff of Kenji 13.0, Plt Count 330, MPV 10.2, Immature Gran % (Auto) 0.400, Neut %(Auto) 64.3, Lymph % (Auto) 27.7, Warren % (Auto) 7.2, Eos % (Auto) 0.0, Baso % (Auto) 0.4, Absolute Neuts (auto) 9.4 H, Absolute Lymphs (auto) 4.07, Nucleated RBC % 0, Sodium 146 H, Potassium 2.9 L, Chloride 104, Carbon Dioxide 26.2, Anion Gap 16 H, BUN 13, Creatinine 0.76, Estim Creat Clear Calc 80.94, Est GFR (MDRD) Non-Af 91, BUN/Creatinine Ratio 17.2, Glucose 131 H, Lactic Acid 2.0, Calcium 10.2 08/09/24 18:15: Urine Color Yellow, Urine Clarity Cloudy, Urine pH 6.5, Ur Specific [place] 1.015, Urine Protein 30 H, Urine Glucose (UA) Normal, Urine Ketones 15 H, Urine Occult Blood 10 H, Urine Nitrite Negative, Urine Bilirubin Negative, Urine Urobilinogen 4 H, Ur Leukocyte Esterase 25 H, Urine RBC 0-5 SEEN, Urine WBC 5-10 SEEN, Ur Squamous Epith Cells 10-25 SEEN, Urine Bacteria 1+, Urine Mucus 3+ Imaging Radiology Impression Abdomen/Pelvis CT 08/09/24 18:31 IMPRESSION: 1. No acute intra-abdominal abnormality. 2. Mild hepatic steatosis. 3. Cystic lesions in both ovaries, the largest measuring 4.3 cm. Recommend nonemergent pelvic ultrasound per ACR white paper guidelines. 4. Solid pulmonary nodules measuring up to 4 mm in the right lung, consider CT chest in 12 months if patient is at high risk for malignancy per Fleischner society guidelines. Reading Location: [id number] Assessment & Plan Assessment/Plan (1) Gastroenteritis: (2) Acute hypokalemia: (3) Acute cystitis without hematuria: (4) Migraine: QUALIFIERS: Intractability: not intractable Migraine type: unspecified Status migrainosus presence:without status migrainosus Qualified Code(s): G43.909 - Migraine, unspecified, not intractable, without status migrainosus (5) Ovarian cyst: QUALIFIERS: Laterality: bilateral Qualified Code(s): N83.201 - Unspecified ovarian cyst, right side; N83.202 - Unspecified ovarian cyst, left side (6) Pulmonary nodules/lesions, multiple: (7) Tobacco abuse, in remission: PLAN: Plan 1. Suspected Viral Gastroenteritis; with nausea and vomiting with bilious emesis - Admit to generalmedical floor under aspiration and enteric precautions. Give copious IVF plus prn IV ondansetron for nausea and vomiting. Give promethazine IM prn for breakthrough nausea. Give ketorolac IV prn for [id number] (level 1-5/10) pain or fever. Give morphine IV prn for severe (level 6-10/10) pain. Finally, stool studies are pending with patient started onempiric IV metronidazole until C. difficile ruled out. 2. Acute Hypokalemia of 2.9 mmol/L present on admission due to #1 - Give supplemental IV and oral KCl and then recheck level in AM to confirm repletion. 3. Acute Cystitis; without hematuria with Leukocytosis of 14.7 K present on admission complicating #1 & #2 - Start empiric IV ceftriaxone 1g IV daily and await culture and sensitivity data. 4. Migraine Headache compounding #1 - #3 - Continue prn sumatriptan as previous. 5. CT evidence of Cystic Lesions in both Ovaries; with the largest measuring ~4.3 cm with radiologist recommending pelvic ultrasound - Patient will need to be set up with outpatient pelvic ultrasoundonce her acute illness resolves. 6. CT evidence of Pulmonary Nodules measuring up to ~4 mm in the Right lung, consider CT chest in 12 months if patient is at high risk for malignancy per Fleischner society guidelines in the setting of previous chronic tobacco abuse -Noted. 7. Essential hypertension; on propranolol - Maintain current regimen plus give prn hydralazine IV for systolic blood pressure > 160 mmHg. 8. Hyperlipidemia; on atorvastatin - Resume statin. 9. Overweight; with BMI of 28.3 this admission - Weight loss will be recommended. Check TSH. 10. CAD; s/p SD with history of negative [facility] (2014) @ [facility] - Noted. 11. History of aneurysm of Left subclavian artery - Noted. 12. Depression; on trazodone, sertraline and amitriptyline - Continue current treatment. 13. Seasonal allergies; on loratadine - Resume loratadine as before. 14. GERD; on omeprazole and famotidine - Maintain PPI IV in light of #1. 15. History of muscle spasms; on prn cyclobenzaprine BID prn - Continue presenttherapy. 16. OA - Stable. 17. DVT prophylaxis - Enoxaparin 40 mg sq daily plus SCD's. Total time: Approximately (but not less than) 75 minutes. Charges/Coding Visit Charges Inpatient E&M: 32024 Init Hosp L3 08/10/24 0733 Cosigner Signature (if applicable): CC: Dr. Len Lafleur DO; Dr. Osvaldo Sue MD~ Signed [facility]05-09-2025 Discharge summary Author Louei Bacon [facility] Note Date/Time August 09, 2024 10:25p m [facility] Medical Records Department [address] [place] [address] Emergency Department Summary 08/09/24 MR#: [id number] Acct: [id number] Name: NOEMI ALONSO Rep #:[id number] : 1965 59 From: Louie Bacon DO PCP: Dr. Osvaldo Sue MD Status:ADM IN Location: MS3 NJ519-5 HPI History of Present Illness Chief Complaint: Nausea/Vomiting/Diarrhea Detail of Chief Complaint: Nausea, vomiting, diarrhea Informant: patient Narrative Narrative: Patient presents with vomiting and diarrhea that started 4 days ago. Patient states that she initially started with some pain in her right side 5 days ago andwent to [facility] the following day where she had blood work and a CAT scan that was unremarkable. Subsequently vomiting and diarrhea started. She has been vomiting more than 10 times a day and frequent watery stools. She started taking Imodium and today she has not had any diarrhea. A lot of the abdominal pain has resolved. She denies sick contacts. Denies recent travel. She denies recent antibiotic usage. [facility] Medical History (Updated 08/09/24 @ 19:[address] Louie Bacon DO) Old myocardial infarction Mixed hyperlipidemia GERD (gastroesophageal reflux disease) Essential hypertension Lung nodules Aneurysm of left subclavian artery Chest pain Dehydration Former tobacco use Migraine Hypertension Elevated LFTs Hypokalemia Gastroenteritis No significant past medical history Home Medications ?Medication ?Instructions ?Recorded ?Last Taken ?Type propranolol 160 mg capsule,24 160 mg PO DAILY 05/03/19 Unknown History hr,extended release famotidine 20 mg tablet 20 mg PO BID #60 tabs Unknown Rx naproxen 500 mg tablet 500 mg PO BID #14 tabs 04/15 Unknown Rx amitriptyline 25 mg tablet 25 mg PO QHS 08/19/22 Unkno wn History atorvastatin 20 mg tablet 20 mg PO QHS 08/19/22 Unknow n History cyclobenzaprine 10 mg tablet 10 mg PO BID PRN 08/19/22 Unknown History estradiol 0.01% (0.1 mg/gram) 0.5 appful vaginal .3XW 08/19/22 Unknown History vaginal cream (Estrace) loratadine 10 mg tablet 10 mg PO DAILY 08/19/22 Unkn own History omeprazole 40 mg capsule,delayed 40 mg PO DAILY Unknown History release sertraline 100 mg tablet 100 mg PO DAILY 08/19/22 Unk nown History sumatriptan succinate 6 mg/0.5 mL 6 mg subcut Q1-4H NJ N 08/19/22 Unknown History subcutaneous pen injector Allergy/AdvReac Type Severity Reaction Status Date / Time No Known Allergies Allergy Verified 08/09/24 15:47 Surgical History History of left heart catheterization (LHC) (~04/29/14) Social History (Updated 08/19/22 @ 10:11 by Mirella Ha) Smoking Status: Former smoker ROS ROS ED Review of Systems ROS Unobtainable: other Constitutional Constitutional ED: Reports lethargy; Denies chills, fever(s), sweats or weight loss Eyes Eyes: Denies blurry vision, change in vision or diplopia ENT ENT ED: Denies rhinorrhea or sore throat Cardiovascular Cardiovascular: Denies chest pain, orthopnea or racing heartbeat Respiratory/Chest Respiratory/Chest: Reports dyspnea on exertion; Denies dyspnea, orthopnea or sputum Gastrointestinal Gastrointestinal: Reports abdominal pain, diarrhea, nausea and vomiting Genitourinary Genitourinary ED: Denies dysuria, hematuria or urinary frequency Musculoskeletal Musculoskeletal: Denies arthralgias, back pain, myalgias or neck pain Integumentary Denies abscess, Abrasions or rash Neurologic Neurologic: Denies headache(s) or weakness Psychiatric Psychiatric: Denies anxiety, depression or suicidal thoughts Endocrine Endocrinology: Denies polydipsia, polyphagia or polyuria Hematologic/Lymphatic Hematologic/Lymphatic: Denies easy bleeding, easy bruising or lymphadenopathy Allergic/Immunologic Allergic/Immunologic ED: Denies mouth swelling, tongue swelling or urticaria EXAM Physical Exam Const Vital Signs: 08/09/24 15:45 08/09/24 17:45 08/09/24 19:00 Temperature 96.3 F L Temperature Source Temporal Pulse Rate 92 53 L 63 Respiratory Rate 19 H 18 18 Blood Pressure 187/107 H 151/82 H Blood Pressure Mean 133 100 Pulse Ox 98 99 97 Oxygen Delivery Method Room Air Positive well nourished and well developed General Appearance ED: well developed and NAD HEENT Reports TM's clear and moist mucous membranes normocephalic and atraumatic; Negative for trauma or tenderness Tympanic Membrane ED: Yes TM's clear Eyes PERRL and EOMs intact bilaterally General Eye ED: Negative for pale conjunctiva or scleral icterus Neck no lymphadenopathy, supple and no JVD General: Negative for tenderness Chest Wall inspection of chest normal and palpation of chest normal Chest: Negative for tenderness Resp normal respiratory effort and clear to auscultation bilaterally Effort and Inspection: Negative for respiratory distress or pain with movement Auscultation: Negative for rhonchi, wheezes or diminished lung sounds Cardio regular rate, regular rhythm, S1 normal heart sound, S2 normal heart sound and no murmurs Peripheral Pulses: pulses 2+ throughout GI normal to inspection, nondistended, normoactive bowel sounds, soft to palpation,non-distended and no masses GI Narrative: Mild diffuse tenderness. There is no rebound, rigidity, or peritoneal signs. No mass palpated. Back/Spine no CVA tenderness and no thoracic nor lumbar tenderness Extremity normal to inspection General Extremety ED: Negative for edema General Extremity: Negative for edema Neuro oriented x3, CN's II-XII intact bilaterally, no sensory deficits noted and gait normal Sensorium / Orientation: awake, alert, oriented to person, oriented to place andoriented to time Motor Exam: strength 5/5 throughout and strength abnormal Psych mental status grossly normal Skin no rashes or lesions noted and no wounds MDM MDM MDM Narrative Medical decision making narrative: Patient presents with vomiting and diarrhea that has been ongoing for 4 days. She did take Imodium so the diarrhea seems to slow down today. She said she hasnot taken her medications in 4 days because she cannot keep anything down. She called her primary care physician's office and was told to come to the emergencydepartment and get admitted for fluids. IV line established. CBC with differential obtained showed a slightly elevated white count of 14.7 with hemoglobin 16 and platelet count of 330. Chemistries showed a sodium that was elevated 146 with potassium 2.9 and chloride 104. BUN 13 and creatinine 0.76. Lactate was minimally elevated 2.0. Urinalysis showed 15 ketones. Patient has no signs of infection in the urine. I did obtain a CT scan of the abdomen pelvis with IV contrast that showed no acute significant findings. She also complains of a migraine and received Toradol and Reglan IV. Will discuss with hospitalist evaluate patient for admission for IV hydration and symptom management. I ordered stool for C. difficile as well as enteric pathogens however patient has been unable to produce. Lab Data Attestation: I reviewed the patient's lab results. Labs: Laboratory Results - last 24 hr 08/09/24 08/09/24 17:15 18:15 WBC 14.7 H RBC 5.04 Hgb 16.1 H Hct 45.8 MCV 90.9 MCH 31.9 MCHC 35.2 RDW Std Deviation 42.9 RDW Coeff of Kenji 13.0 Plt Count 330 MPV 10.2 Immature Gran % (Auto) 0.400 Neut % (Auto) 64.3 Lymph % (Auto) 27.7 Warren % (Auto) 7.2 Eos % (Auto) 0.0 Baso % (Auto) 0.4 Absolute Neuts (auto) 9.4 H Absolute Lymphs (auto) 4.07 Nucleated RBC % 0 Sodium 146 H Potassium 2.9 L Chloride 104 Carbon Dioxide 26.2 Anion Gap 16 H BUN 13 Creatinine 0.76 Estim Creat Clear Calc 80.94 Est GFR (MDRD) Non-Af 91 BUN/Creatinine Ratio 17.2 Glucose 131 H Lactic Acid 2.0 Calcium 10.2 Urine Color Yellow Urine Clarity Cloudy Urine pH 6.5 Ur Specific [place] 1.015 Urine Protein 30 H Urine Glucose (UA) Normal Urine Ketones 15 H Urine Occult Blood 10 H Urine Nitrite Negative Urine Bilirubin Negative Urine Urobilinogen 4 H Ur Leukocyte Esterase 25 H Radiography Diagnostic Testing: Clinical Impression(s) from Imaging Studies Abdomen/Pelvis CT 08/09/24 18:31 IMPRESSION: 1. No acute intra-abdominal abnormality. 2. Mild hepatic steatosis. 3. Cystic lesions in both ovaries, the largest measuring 4.3 cm. Recommend nonemergent pelvic ultrasound per ACR white paper guidelines. 4. Solid pulmonary nodules measuring up to 4 mm in the right lung, consider CT chest in 12 months if patient is at high risk for malignancy per Fleischner society guidelines. Reading Location: [id number] Discharge Plan Triage Chief Complaint: Nausea/Vomiting/Diarrhea ED Provider: Louie Bacon Dx/Rx/DC Orders Clinical Impression: Gastroenteritis, Dehydration, Acute hypokalemia Prescriptions: No Action sertraline 100 mg tablet 100 mg PO DAILY atorvastatin 20 mg tablet 20 mg PO QHS loratadine 10 mg tablet 10 mg PO DAILY omeprazole 40 mg capsule,delayed release(DR/EC) 40 mg PO DAILY cyclobenzaprine 10 mg tablet 10 mg PO BID PRN sumatriptan succinate 6 mg/0.5 mL pen injector 6 mg subcut Q1-4H PRN Rx Instructions: do not exceed 2 doses in a 24 hour period estradiol [Estrace] 0.01 % (0.1 mg/gram) cream 0.5 appful vaginal .3XW amitriptyline 25 mg tablet 25 mg PO QHS propranolol 160 MG capsule,extended release 24 hr 160 mg PO DAILY famotidine 20 MG tablet 20 mg PO BID Qty: 60 0RF naproxen 500 MG tablet 500 mg PO BID Qty: 14 0RF Primary Care Provider: Osvaldo Sue Referrals: Osvaldo Sue MD [Primary Care Provider] - Print Language: Cypriot Disposition Disposition: Acute Care Hospital [facility] What to do if you have Problems For any increased pain, shortness of breath, bleeding, nausea or vomiting, chestpain, or any unexpected problems, contact your Primary Care Provider. Call [facility] ([phone]) or report to the closest Emergency Room. Call 911 if necessary. 08/09/242224 <Electronically signed by Louie Bacon DO> Cosigner Signature (if applicable): CC: Dr. Osvaldo Sue MD ~ Signed [facility] Work Phone: 1(761) 964-319605-08-2025 Discharge summary [facility] Medical Records Department [address] [place] [address] Emergency Department Summary 08/09/24 MR#: [id number] Acct: [id number] Name: NOEMI ALONSO Rep #:[id number] : 1965 59 From: Louie Bacon DO PCP: Dr. Osvaldo Sue MD Status:ADM IN Location: [place] [address] HPI History of Present Illness Chief Complaint: Nausea/Vomiting/Diarrhea Detail of Chief Complaint: Nausea, vomiting, diarrhea Informant: patient Narrative Narrative: Patient presents with vomiting and diarrhea that started 4 days ago. Patient states that she initially started with some pain in her right side 5 days ago andwent to [facility] the following day where she had blood work and a CAT scan that was unremarkable. Subsequently vomiting and diarrhea started. She has been vomiting more than 10 times a day and frequent watery stools. She started taking Imodium and today she has not had any diarrhea. A lot of the abdominal pain has resolved. Shedenies sick contacts. Denies recent travel. She denies recent antibiotic usage. [facility] Medical History (Updated 08/09/24 @ 19:[address] Louie Bacon, DO) Old myocardial infarction Mixed hyperlipidemia GERD (gastroesophageal reflux disease) Essential hypertension Lung nodules Aneurysm of left subclavian artery Chest pain Dehydration Former tobacco use Migraine Hypertension Elevated LFTs Hypokalemia Gastroenteritis No significant past medical history Home Medications ?Medication ?Instructions ?Recorded ?Last Taken ?Type propranolol 160 mg capsule,24 160 mg PO DAILY 05/03/19 Unknown History hr,extended release famotidine 20 mg tablet 20 mg PO BID #60 tabs Unknown Rx naproxen 500 mg tablet 500 mg PO BID #14 tabs 04/15 Unknown Rx amitriptyline 25 mg tablet 25 mg PO QHS 08/19/22 Unkno wn History atorvastatin 20 mg tablet 20 mg PO QHS 08/19/22 Unknow n History cyclobenzaprine 10 mg tablet 10 mg PO BID PRN 08/19/22 Unknown History estradiol 0.01% (0.1 mg/gram) 0.5 appful vaginal .3XW 08/19/22 Unknown History vaginal cream (Estrace) loratadine 10 mg tablet 10 mg PO DAILY 08/19/22 Unkn own History omeprazole 40 mg capsule,delayed 40 mg PO DAILY Unknown History release sertraline 100 mg tablet 100 mg PO DAILY 08/19/22 Unk nown History sumatriptan succinate 6 mg/0.5 mL 6 mg subcut Q1-4H NJ N 08/19/22 Unknown History subcutaneous pen injector Allergy/AdvReac Type Severity Reaction Status Date / Time No Known Allergies Allergy Verified 08/09/24 15:47 Surgical History History of left heart catheterization (LHC) (~04/29/14) Social History (Updated 08/19/22 @ 10:11 by Mirella Ha) Smoking Status: Former smoker ROS ROS ED Review of Systems ROS Unobtainable: other Constitutional Constitutional ED: Reports lethargy; Denies chills, fever(s), sweats or weight loss Eyes Eyes: Denies blurry vision, change in vision or diplopia ENT ENT ED: Denies rhinorrhea or sore throat Cardiovascular Cardiovascular: Denies chest pain, orthopnea or racing heartbeat Respiratory/Chest Respiratory/Chest: Reports dyspnea on exertion; Denies dyspnea, orthopnea or sputum Gastrointestinal Gastrointestinal: Reports abdominal pain, diarrhea, nausea and vomiting Genitourinary Genitourinary ED: Denies dysuria, hematuria or urinary frequency Musculoskeletal Musculoskeletal: Denies arthralgias, back pain, myalgias or neck pain Integumentary Denies abscess, Abrasions or rash Neurologic Neurologic: Denies headache(s) or weakness Psychiatric Psychiatric: Denies anxiety, depression or suicidal thoughts Endocrine Endocrinology: Denies polydipsia, polyphagia or polyuria Hematologic/Lymphatic Hematologic/Lymphatic: Denies easy bleeding, easy bruising or lymphadenopathy Allergic/Immunologic Allergic/Immunologic ED: Denies mouth swelling, tongue swelling or urticaria EXAM Physical Exam Const Vital Signs: 08/09/24 15:45 08/09/24 17:45 08/09/24 19:00 Temperature 96.3 F L Temperature Source Temporal Pulse Rate 92 53 L 63 Respiratory Rate 19 H 18 18 Blood Pressure 187/107 H 151/82 H Blood Pressure Mean 133 100 Pulse Ox 98 99 97 Oxygen Delivery Method Room Air Positive well nourished and well developed General Appearance ED: well developed and NAD HEENT Reports TM's clear and moist mucous membranes normocephalic and atraumatic; Negative for trauma or tenderness Tympanic Membrane ED: Yes TM's clear Eyes PERRL and EOMs intact bilaterally General Eye ED: Negative for pale conjunctiva or scleral icterus Neck no lymphadenopathy, supple and no JVD General: Negative for tenderness Chest Wall inspection of chest normal and palpation of chest normal Chest: Negative for tenderness Resp normal respiratory effort and clear to auscultation bilaterally Effort and Inspection: Negative for respiratory distress or pain with movement Auscultation: Negative for rhonchi, wheezes or diminished lung sounds Cardio regular rate, regular rhythm, S1 normal heart sound, S2 normal heart sound and no murmurs Peripheral Pulses: pulses 2+ throughout GI normal to inspection, nondistended, normoactive bowel sounds, soft to palpation,non-distended and no masses GI Narrative: Mild diffuse tenderness. There is no rebound, rigidity, or peritoneal signs. No mass palpated. Back/Spine no CVA tenderness and no thoracic nor lumbar tenderness Extremity normal to inspection General Extremety ED: Negative for edema General Extremity: Negative for edema Neuro oriented x3, CN's II-XII intact bilaterally, no sensory deficits noted and gait normal Sensorium / Orientation: awake, alert, oriented to person, oriented to place andoriented to time Motor Exam: strength 5/5 throughout and strength abnormal Psych mental status grossly normal Skin no rashes or lesions noted and no wounds MDM MDM MDM Narrative Medical decision making narrative: Patient presents with vomiting and diarrhea that has been ongoing for 4 days. She did take Imodium so the diarrhea seems to slow down today. She said she hasnot taken her medications in 4 days because she cannot keep anything down. She called her primary care physician's office and was told to cometo the emergencydepartment and get admitted for fluids. IV line established. CBC with differential obtained showed a slightly elevated white count of 14.7 with hemoglobin 16 and platelet count of 330. Chemistries showed a sodium that was elevated 146 with potassium 2.9 and chloride 104. BUN 13 and creatinine 0.76. Lactate was minimally elevated 2.0. Urinalysis showed 15 ketones. Patient has no signs of infection in the urine. I did obtain a CT scan of the abdomen pelvis with IV contrast that showed no acute significant findings. She also complains of a migraine and received Toradol and ReglanIV. Will discuss with hospitalist evaluate patient for admission for IV hydration and symptom management. I ordered stool for C. difficile as well as enteric pathogens however patient has been unableto produce. Lab Data Attestation: I reviewed the patient's lab results. Labs: Laboratory Results - last 24 hr 08/09/24 08/09/24 17:15 18:15 WBC 14.7 H RBC 5.04 Hgb 16.1 H Hct 45.8 MCV 90.9 MCH 31.9 MCHC 35.2 RDW Std Deviation 42.9 RDW Coeff of Kenji 13.0 Plt Count 330 MPV 10.2 Immature Gran % (Auto) 0.400 Neut % (Auto) 64.3 Lymph % (Auto) 27.7 Warren % (Auto) 7.2 Eos % (Auto) 0.0 Baso % (Auto) 0.4 Absolute Neuts (auto) 9.4 H Absolute Lymphs (auto) 4.07 Nucleated RBC % 0 Sodium 146 H Potassium 2.9 L Chloride 104 Carbon Dioxide 26.2 Anion Gap 16 H BUN 13 Creatinine 0.76 Estim Creat Clear Calc 80.94 Est GFR (MDRD) Non-Af 91 BUN/Creatinine Ratio 17.2 Glucose 131 H Lactic Acid 2.0 Calcium 10.2 Urine Color Yellow Urine Clarity Cloudy Urine pH 6.5 Ur Specific [place] 1.015 Urine Protein 30 H Urine Glucose (UA) Normal Urine Ketones 15 H Urine Occult Blood 10 H Urine Nitrite Negative Urine Bilirubin Negative Urine Urobilinogen 4 H Ur Leukocyte Esterase 25 H Radiography Diagnostic Testing: Clinical Impression(s) from Imaging Studies Abdomen/Pelvis CT 08/09/24 18:31 IMPRESSION: 1. No acute intra-abdominal abnormality. 2. Mild hepatic steatosis. 3. Cystic lesions in both ovaries, the largest measuring 4.3 cm. Recommend nonemergent pelvic ultrasound per ACR white paper guidelines. 4. Solid pulmonary nodules measuring up to 4 mm in the right lung, consider CT chest in 12 months if patient is at high risk for malignancy per Fleischner society guidelines. Reading Location: [id number] Discharge Plan Triage Chief Complaint: Nausea/Vomiting/Diarrhea ED Provider: Louie Bacon Dx/Rx/DC Orders Clinical Impression: Gastroenteritis, Dehydration, Acute hypokalemia Prescriptions: No Action sertraline 100 mg tablet 100 mg PO DAILY atorvastatin 20 mg tablet 20 mg PO QHS loratadine 10 mg tablet 10 mg PO DAILY omeprazole 40 mg capsule,delayed release(DR/EC) 40 mg PO DAILY cyclobenzaprine 10 mg tablet 10 mg PO BID PRN sumatriptan succinate 6 mg/0.5 mL pen injector 6 mg subcut Q1-4H PRN Rx Instructions: do not exceed 2 doses in a 24 hour period estradiol [Estrace] 0.01 % (0.1 mg/gram) cream 0.5 appful vaginal .3XW amitriptyline 25 mg tablet 25 mg PO QHS propranolol 160 MG capsule,extended release 24 hr 160 mg PO DAILY famotidine 20 MG tablet 20 mg PO BID Qty: 60 0RF naproxen 500 MG tablet 500 mg PO BID Qty: 14 0RF Primary Care Provider: Osvaldo Sue Referrals: Osvaldo Sue MD [Primary Care Provider] - Print Language: Cypriot Disposition Disposition: Acute Care Hospital [facility] What to do if you have Problems For any increased pain, shortness of breath, bleeding, nausea or vomiting, chestpain, or any unexpected problems, contact your Primary Care Provider. Call [facility] ([phone]) or report tothe closest Emergency Room. Call 911 if necessary. 08/09/242224 Cosigner Signature (if applicable): CC: Dr. Osvaldo Sue MD ~ Signed [facility]05-08-2025 Evaluation note* Diagnosis Onset Date Resolution Status Admit Date Acute cystitis without hematuria acu te August 09, 2024 8:07pm Acute hypokalemia acute August 8:07pm Gastroenteritis acute August 09, 2024 8:07pm Migraine acute August 09, 2024 8:07pm Ovarian cyst acute August 09 8:07pm Pulmonary nodules/lesions, multiple acute August 09, 2024 8:07pm Tobacco abuse, in remission acute August 09, 2024 8:07pm [facility] Work Phone: 1(556) 368-988305-08-2025 Radiology Diagnostic study note [facility] Imaging Services [address], [place] [id number] Abdomen/Pelvis W IV Cont ONLY MR#: [id number] Acct: [id number] Name: NOEMI ALONSO Rep #: [id number] : 1965 F 59 From: Ambreen Guevara MD PCP: Dr. Osvaldo Sue MD Status: REG ER Study:Abdomen/Pelvis W IV Cont ONLY Date of E xam: 08/09/24 Exam# [id number] Ordering Dr: Syeda Bacon DO PROCEDURE: ABDOMEN/PELVIS W IV CONT ONLY 08/09/2024 REASON FOR EXAM: ABDOMINAL PAIN, VOMITING AND DIARRHEA TECHNIQUE: Abdomen and pelvis CT with intravenous contrast. Coronal and Sagittal reconstruction series were provided One or more dose reduction techniques were used (e.g., Automated exposure control, adjustment of the mA and/or kV according to patient size, use of iterative reconstruction technique. RADIATION DOSE SUMMARY: CTDlvol: 29.9 mGy DLP: 803.3 mGycm COMPARISON: Abdominal ultrasound 04/03/2024 FINDINGS: Lung bases: Solid nodules measuring 4 mm in the right middle lobe (series 2, image 1) and right lower lobe (image 11). Liver: Mildly hypoattenuating. Gallbladder: Surgically absent. Spleen: Unremarkable Pancreas: Unremarkable Adrenals: Unremarkable Kidneys: No stone or hydronephrosis. Bladder: Predominantly collapsed, limiting evaluation Reproductive Organs: Cystic lesion in the left ovary measuring up to 4.3 cm and right ovary measuring 2.1 cm. Bilateral tubal ligation clips. Bowel: Hiatal hernia. No obstruction or inflammation. Unremarkable appendix. Lymph nodes: No lymphadenopathy. Vasculature: Mild diffuse atherosclerotic calcifications are noted. Peritoneum / Retroperitoneum: Unremarkable Bones: Mild degenerative changes in the lower lumbar spine. CT/Abdomen/Pelvis W IV Cont ONLY IMPRESSION: 1. No acute intra-abdominal abnormality. 2. Mild hepatic steatosis. 3. Cystic lesions in both ovaries, the largest measuring 4.3 cm. Recommend nonemergent pelvic ultrasound per ACR white paper guidelines. 4. Solid pulmonary nodules measuring up to 4 mm in the right lung, consider CT chest in 12 months if patient is at high risk for malignancy per Fleischner society guidelines. Reading Location: [facility] CC: Dr. Osvlado Sue MD; Dr. Louie Bacon, DO ~ Internet Programmer: Signed [facility]05-08-2025 Evaluation note* Diagnosis Onset Date Resolution Status Admit Date Acute cystitis without hematuria acu te August 09, 2024 7:45pm Acute hypokalemia acute August 7:45pm Gastroenteritis acute August 09, 2024 7:45pm Migraine acute August 09, 2024 7:45pm Ovarian cyst acute August 09 7:45pm Pulmonary nodules/lesions, multiple acute August 09, 2024 7:45pm Tobacco abuse, in remission acute August 09, 2024 7:45pm [facility] Work Phone: [phone]) 562-152305-08-2025 Telephone encounter Note* Telephone Encounter - Osvaldo Sue MD - 08/09/2024 1:49 PM EDT Noted. [facility]05-08-2025 Miscellaneous Notes* Telephone Encounter - Osvaldo Sue MD - 08/09/2024 1:49 PM EDT Noted. * Telephone Encounter - Umm Green RN - 08/09/2024 1:13 PM EDT Protocol recommends go to ER now. Pt states she has to wait for her to come home at 5 pm. She states she is going to have him drive her to [facility] ER, because they were mean to her at [place] when she was there on 08/05/24 and 08/07/24. Care plan reviewed with patient. Patient voices understanding. Advised patient that if symptoms get worse to call 911. Reason for Disposition [1] SEVERE vomiting (e.g., 6 or more times/day) AND [2] present > 8 hours (Exception: Patient sounds well, is drinking liquids, does not sound dehydrated, and vomiting has lasted less than 24 hours.) Answer Assessment - Initial Assessment Questions 1. VOMITING SEVERITY: - MILD: 1 - 2 times/day - MODERATE: 3 - 5 times/day, decreased oral intake without significant weight loss or symptoms of dehydration - SEVERE: 6 or more times/day, vomits everything or nearly everything, with significant weight loss, symptoms of dehydration 10 times. States it's dry heaving. If she drinks too much water it comes back up. 2. ONSET: The vomiting began on Tuesday. 3. FLUIDS: Vomited up water today. Has kept down 8 oz of tea in the last 2 hours. 4. ABDOMEN PAIN: Reports the abdominal pain is gone. 5. DIARRHEA: Reports diarrhea is gone, has been taking Imodium AD. 6. CONTACTS: No one else in the family with the same symptoms. 7. CAUSE: Thinks nasal drainage is causing vomiting. 8. HYDRATION STATUS: Pt reports dry mouth [not only dry lips]. Pt states she can stand but very weak. Last urinated 2 hours ago. 9. OTHER SYMPTOMS: Pt reports headache. Pt denies fever,recent head injury, vertigo, or vomiting blood or coffee grounds. 10. : Pt denies states she has had tubes time since 23, and is going through menopause. Protocols used: [id number] documented in this encounterA[facility] Telephone encounter Note * Telephone Encounter - Umm Green RN - 08/09/2024 1:13 PM EDT Protocol recommends go to ER now. Pt states she has to wait for her to come home at 5 pm. She states she is going to have him drive her to [facility] ER, because they were mean to her at [place] when she was there on 08/05/24 and 08/07/24. Care plan reviewed with patient. Patient voices understanding. Advised patient that if symptoms get worse to call 911. Reason for Disposition [1] SEVERE vomiting (e.g., 6 or more times/day) AND [2] present > 8 hours (Exception: Patient sounds well, is drinking liquids, does not sound dehydrated, and vomiting has lasted less than 24 hours.) Answer Assessment - Initial Assessment Questions 1. VOMITING SEVERITY: - MILD: 1 - 2 times/day - MODERATE: 3 - 5 times/day, decreased oral intake without significant weight loss or symptoms of dehydration - SEVERE: 6 or more times/day, vomits everything or nearly everything, with significant weight loss, symptoms of dehydration 10 times. States it's dry heaving. If she drinks too much water it comes back up. 2. ONSET: The vomiting began on Tuesday. 3. FLUIDS: Vomited up water today. Has kept down 8 oz of tea in the last 2 hours. 4. ABDOMEN PAIN: Reports the abdominal pain is gone. 5. DIARRHEA: Reports diarrhea is gone, has been taking Imodium AD. 6. CONTACTS: No one else in the family with the same symptoms. 7. CAUSE: Thinks nasal drainage is causing vomiting. 8. HYDRATION STATUS: Pt reports dry mouth [not only dry lips]. Pt states she can stand but very weak. Last urinated 2 hours ago. 9. OTHER SYMPTOMS: Pt reports headache. Pt denies fever,recent head injury, vertigo, or vomiting blood or coffee grounds. 10. : Pt denies states she has had tubes time since 23, and is going through menopause. Protocols used: [id number] [facility]05-06-2025 NoteHNO ID: [id number] Author: BREANN DAVIS LPN Service: ? Author Type: LICENSED NURSE Type: Progress Notes Filed: 08/07/2024 14:29 Note Text: Scan on 08/07/2024 2:14 PM by Tevin Mensah PA-C: Hematology Scan on 08/07/2024 1:23 PM by Tevin Mensah PA-C: [facility] History of Present illness Narrative* Breann Davis LPN - 08/07/2024 2:29 PM EDT Scan on 08/07/2024 2:14 PM by Tevin Mensah PA-C: Hematology Scan on 08/07/2024 1:23 PM by Tevin Mensah PA-C: CT Scan documented in this encounterAdena [facility]04-07-2025 NoteHNO ID: [id number] Author: DULCE MARIA MARTINEZ MA Service: ? Author Type: Produce Laborer Type: Progress Notes Filed: 07/09/2024 13:13 Note Text: Scan on 06/21/2024 2:23 PM by Tevin Mensah PA-C: Chemistry Scan on 06/22/2024 2:26 PM by Tevin Mensah PA-C: Chemistry Dulce Maria Martinez [facility]04-07-2025 History of Present illness Narrative* Dulce Maria Martinez MA - 07/09/2024 1:13 PM EDT Scan on 06/21/2024 2:23 PM by Tevin Mensah PA-C: Chemistry Scan on 06/22/2024 2:26 PM by Tevin Mensah PA-C: Chemistry Dulce Maria Martinez MA documented in this encounterAdena [facility]03-21-2025 NoteHNO ID: [id number] Author: BREANN DAVIS LPN Service: ? Author Type: LICENSED NURSE Type: Progress Notes Filed: 06/22/2024 06:51 Note Text: Scan on 06/21/2024 11:32 AM by ProviderTevin PA-C: [facility] History of Present illness Narrative* Breann Davis LPN - 06/22/2024 6:51 AM EDT Scan on 06/21/2024 11:32 AM by Provider, JOSE Abarca: X-ray documented in this encounterAdena [facility]03-20-2025 NoteDischarge Instructions Discharge Summary [address] [address] [id number] 06/21/2024 Patient: NOEMI ALONSO Sex: Female : 1965 Age: 59y Thank you for visiting [facility]. You have been evaluated today by Randy Quiles D.O. for the following condition(s): Principal Diagnosis Chest pain. INSTRUCTIONS Follow-up: Follow up with your healthcare provider in three days. Call for an appointment. Follow-up with: Haven Meeks MD, [facility], Cardiology, Phone: [phone], [address] [address]. Follow up in three days. Call for an appointment. You have been given the following additional information: Uncertain Causes of Chest Pain Patient Signature Facility Bath Tester Date/Time 1 of 4 Discharge Instructions General Instructions with ExitWriter [address] [address] [id number] 06/21/2024 Patient: NOEMI ALONSO Sex: Female : 1965 Age: 59y Thank you for visiting [facility]. You have been evaluated today by Randy Quiles D.O. for the following condition(s): Principal Diagnosis Chest pain. INSTRUCTIONS Follow-up: Follow up with your healthcare provider in three days. Call for an appointment. Follow-up with: Haven Meeks MD, [facility], Cardiology, Phone: [phone], [address] [phone]. Follow up in three days. Call for [...] Swelling, pain or redness in one leg [address] [place], [place] [id number] Telephone encounter Note* Telephone Encounter - Salome Barnes RN - 06/21/2024 9:25 AM EDT Patient call in for chest pain that radiates to left side o neck. Patient has had pain x 3 days. Not getting any better. Has history of heart attack. Nurse Triage assessment completed with protocol recommending for disposition of Go to ED now. Patient voices understanding. Care advice reviewed with patient, patient stated understanding. Reason for Disposition [1] Chest pain (or angina) comes and goes AND [2] is happening more often (increasing in frequency) or getting worse (increasing in severity) (Exception: Chest pains that last only a few seconds.) Answer Assessment - Initial Assessment Questions 1. LOCATION: Right above the Heart 2. RADIATION: Sometimes radiates to left side of neck 3. ONSET: Started 3 days ago. 4. PATTERN: Constant; Gets worse with exertion. 5. DURATION: When she does something it comes back she has sharp stabbing pain in chest. Usually lasts a couple of minutes. 6. SEVERITY: Patient rates pain as a good 8 or 9 when it happens 7. CARDIAC RISK FACTORS: Heart attack 8 or 9 years ago; High blood pressure; High cholesterol 8. PULMONARY RISK FACTORS: ) Denies 9. CAUSE: Unsure 10. OTHER SYMPTOMS: Short of breath once a while; hot flashes Protocols used: Chest Wwzt-[id number]-NV [facility]03-20-2025 Miscellaneous Notes* Telephone Encounter - Salome Barnes RN - 06/21/2024 9:25 AM EDT Patient call in for chest pain that radiates to left side o neck. Patient has had pain x 3 days. Not getting any better. Has history of heart attack. Nurse Triage assessment completed with protocol recommending for disposition of Go to ED now. Patient voices understanding. Care advice reviewed with patient, patient stated understanding. Reason for Disposition [1] Chest pain (or angina) comes and goes AND [2] is happening more often (increasing in frequency) or getting worse (increasing in severity) (Exception: Chest pains that last only a few seconds.) Answer Assessment - Initial Assessment Questions 1. LOCATION: Right above the Heart 2. RADIATION: Sometimes radiates to left side of neck 3. ONSET: Started 3 days ago. 4. PATTERN: Constant; Gets worse with exertion. 5. DURATION: When she does something it comes back she has sharp stabbing pain in chest. Usually lasts a couple of minutes. 6. SEVERITY: Patient rates pain as a good 8 or 9 when it happens 7. CARDIAC RISK FACTORS: Heart attack 8 or 9 years ago; High blood pressure; High cholesterol 8. PULMONARY RISK FACTORS: ) Denies 9. CAUSE: Unsure 10. OTHER SYMPTOMS: Short of breath once a while; hot flashes Protocols used: Chest [id number] documented in this encounterAdena [facility]03-04-2025 NotePatient Outreach (FAMPWS) NOEMI ALONSO ([id number]) 1965 F Date Time Provider Department 06/05/24 OSVALDO SUE FAMPWS During your visit today, we recorded the following information about you: Allergies As of Date: 06/05/2024 (No Known Allergies) Date Reviewed: 05/02/2024 Reviewed by: La Jacques PA-C - Fully Assessed Visit Diagnosis:Encounter for screening mammogram for breast cancer [Z12.31] Order(s):[facility] [[id number]] Order #: [id number] FUTURE Prescriptions as of 07/06/2024 - gabapentin [...] Well adult exam [Z00.00] 10/06/2018 History of SD (myocardial infarction) [I25.2] 07/11/2019 Former smoker [Z87.891] [...] [I72.8]07/21/2022 Encounter Status:Closed by LUZ BLOCK on 07/06/24[facility] Telephone encounter Note* Telephone Encounter - Rehana Moreland LPN - 05/15/2024 1:50 PM EST Spoke to patient, verified name and date of . Advised patient medication has been sent, verbalized understanding. Rehana Moreland LPN May 15, 2024 1:50 PM Encounter closed [facility]02-11-2025 Miscellaneous Notes* Telephone Encounter - Rehana Moreland LPN - 05/15/2024 1:50 PM EST Spoke to patient, verified name and date of . Advised patient medication has been sent, verbalized understanding. Rehana Moreland LPN May 15, 2024 1:50 PM Encounter closed * Telephone Encounter - La Jacques PA-C - 05/15/2024 12:39 PM EST Typically go to three times a day. New script sent. PDMP website checked and validated. All prescriptions have been APPROPRIATELY filled. No suspiciousactivity was identified. 05/15/2024 by La Jacques PA-C * Telephone Encounter - Kaye Negron RN - 05/14/2024 9:14 AM EST Pt phoned asking for results of MRI. [...] pills during the day? Please advise patient. documented in this encounterAdena [facility]02-11-2025 Telephone encounter Note * Telephone Encounter - La Jacques PA-C - 05/15/2024 12:39 PM EST Typically go to three times a day. New script sent. [facility] website checked and validated. All prescriptions have been APPROPRIATELY filled. No suspiciousactivity was identified. 05/15/2024 by La Jacques PA-C [facility]02-10-2025 Telephone encounter Note* Telephone Encounter - Kaye Negron RN - 05/14/2024 9:14 AM EST Pt phoned asking for results of MRI. [...] pills during the day? Please advise patient. [facility]02-05-2025 Telephone encounter Note* Telephone Encounter - Cheryl Sahu PA-C - 05/09/2024 11:47 AM EST The following approved medication requests have been transmitted electronically. Requested Prescriptions Signed Prescriptions Disp Refills omeprazole (PRILOSEC) 40 mg capsule 30 capsule 5 Sig: Take 1 capsule by mouth once daily. Authorizing Provider: CHERYL SAHU PA-C [facility]02-05-2025 Miscellaneous Notes* Telephone Encounter - Cheryl Sahu PA-C - 05/09/2024 11:47 AM EST The following approved medication requests have been transmitted electronically. Requested Prescriptions Signed Prescriptions Disp Refills omeprazole (PRILOSEC) 40 mg capsule 30 capsule 5 Sig: Take 1 capsule by mouth once daily. Authorizing Provider: CHERYL SAHU PA-C * Telephone Encounter - Loan Constantino OCCA - 05/09/2024 10:12 AM EST TC to patient who states she would like to go back on the omeprazole to [facility] in [place]. Patient has been scheduled for follow up with Vishnu Sahu on 06/06. MONICA Macedo * Telephone Encounter - Osvaldo Sue MD - 05/08/2024 4:55 PM EST Let patient know she was taking omeprazole 40 mg a day in 2021 and 2022. Does she want to go back to taking it. If so I will send in a script and will need f/u in a month within the triad. * Telephone Encounter - Kaye Negron RN - 05/08/2024 11:55 AM EST Patient asking pcp to order her a different acid reflux pill. States the famotidine is not helping. [facility]. Last ov: 04/11/24 documented in this encounterAdena [facility]02-05-[facility]25 Telephone encounter Note * Telephone Encounter - Loan Constantino OCCA - 05/09/2024 10:12 AM EST TC to patient who states she would like to go back on the omeprazole to [facility] in [place]. Patient has been scheduled for follow up with Vishnu Sahu on 06/06. MONICA Macedo [facility]02-05-2025 History of Present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 capsule 1 Sig: Take 1 capsule by mouth once daily. Authorizing Provider: CHERYL SAHU PA-C * Telephone Encounter - Tiffany Ornelas LPN - 01/04/2022 9:02 AM EDT Last appt 08/17/21. Next scheduled appt: 03/18/22 Patient has been identified by name and date of : Yes Requested Prescriptions Pending Prescriptions Disp Refills omeprazole (PRILOSEC) 40 mg capsule 90 capsule 1 Sig: Take 1 capsule by mouth once daily. RX INSTRUCTIONS: Patient aware RX will be sent to pharmacy. No need to notify patient. Tiffany Ornelas LPN documented in this encounterAdena [facility]09-06-2022 Miscellaneous Notes* Telephone Encounter - Mary Zee LPN - 12/08/2021 2:48 PM EDT Pt reports she started having a migraine & feels dizzy if she moves her head quickly, sx started 12/03/21. Pt did an Imitrex injection at onset of sx. Pt stated it did help but she still has pain in the back of her head. Pt denies visual changes, nausea & vomiting. Pt was offered an appt but states she has to wait for her friend to get off work to bring her in. Pt states she will go to when friend gets off work at 430. Mary Zee LPN documented in this encounterAdena [facility]08-16-2022 History of Present illness Narrative* Umm Medina, PT - 11/17/2021 8:36 AM EDT Episode Visit Count: 1 Therapist That Will Oversee The Plan Of Care: Umm Medina Start of Care Date: 11/17/21 Onset Date: 03/19/21 Plan of Care Certification Date: 11/17/21 Next Certification Due Date: 02/15/22 Patient Identified by Name and Date of : Yes REHABILITATION AND SPORTS THERAPY PHYSICAL THERAPY EVALUATION PLAN OF CARE: Assessment: Noemi Alonso presents with chief complaint of pelvic pain that interferes with alteredsexual function;standing;physical activities;bladder function . She presents with impairments in decreased flexibility in BLE; impaired bladder and sexual function. Pelvic floor muscle assessment deferred this date due to current yeast infection, to be performed once infection has cleared. PROMIS (Patient-Reported Outcomes Measurement Information System) scores were unable to be reviewed. Prognosis for therapy is Good due to: current objective clinical presentation . She will benefit from skilled therapy services to meet the goals established for this plan of care as noted below. Goals for Episode of Care: created on 11/17/21 through 02/15/22 [place] in home exercise program. Patient will increase flexibility of BLE to WNL to decrease pain. Incontinence: Patient to urinate every 2-4 hours Patient able to cough, sneeze, lift and/or exercise without leaking Patient reports urgency is experienced less than baseline / initial evaluation Patient reports increased ability to fully empty bladder Pelvic Pain: Patient reports painfree intercourse Patient displays decreased muscle spasms in pelvic floor to allow for decreased pain levels-TBA Patient displays improved muscle dynamics of pelvic floor including ability to lengthen-TBA Patient Goals: improve pain, improve bladder function Planned Interventions, Frequency, and Duration: Current Frequency: 1x/week Duration: 4 weeks (reassess at 4 weeks and progress as indicated) Total Number of Visits Planned: 4 Planned Treatment Interventions: Therapeutic exercise (00090);Manual therapy (48820);Self-care homemanagement (77051);Patient/Family/Caregiver Education PLAN FOR NEXT VISIT: PF mm assessment if infection is cleared, review bladder diary, assess external connective tissue Patient demonstrates good understanding of plan of care and treatment. The above goals and plan of care were discussed and agreed upon by patient/family. SUBJECTIVE: Pt reports pelvic pain began about 8 months ago insidiously. Pt reports pain increases with standing, intercourse, physical activity. Pt reports being unable to work due to pain. Patient reports currently having a yeast infection. Patient Goals: improve pain, improve bladder function Functional Limitations: altered sexual function;standing;physical activities;bladder function Prior Level of Function: Independent without limitations PAST MEDICAL HISTORY Diagnosis Date Anxiety disorder 07/24/2014 Elevated hemoglobin A1c 07/18/2021 Environmental allergies 10/06/2018 Essential hypertension 07/24/2014 GERD without esophagitis 12/12/2020 History of SD (myocardial infarction) 07/11/[address] chest 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 Needs repeat chest CT 03/2021. Migraine headache Smoker 2020 Tension headache 10/06/2018 Well adult exam 10/06/2018 Last done: 10/06/18 PAST SURGICAL HISTORY Procedure Laterality Date COLONOSCOPY 4-5 years ago EGD 4-5 years ago L'SCOPE CHOLECYSTECTOMY 2018 LEXISCAN STRESS TEST 03/21/2020 negative LIGATE FALLOPIAN TUBE age 23 - at [facility] PAST SURGICAL HISTORY OF 04/2014 heart cath, old recoreds was WNL Relevant History Past Relevant Medical Conditions: (see note) Past Relevant Surgical Conditions: (see note) Employment: Unemployed Recreation / Current Exercise: walking Intake Information: Prescription present Previous Treatment: Heat ;Ice ;NSAIDs Falls Interview: No positive findings with falls interview Aquatic Screen: No Pain: Pain Pain Level: 8 Pain Location: Abdomen Description: Aching Frequency: Continuous Post Treatment Pain Post Treatment Pain Level: No Change PROMIS Scales T-scores: mean of general population = 50. 5 points is clinically meaningfully difference Percentiles provide an indication of how the patient's score ranks in relation to the general population. Higher percentile rankings indicate better function/quality of life. 50th percentile is the average of the general population and indicates half of respondents had a worse score. T-scores: mean of general population = 50. 5 points is clinically meaningfully difference Percentiles provide an indication of how the patient's score ranks in relation to the general population. Higher percentile rankings indicate better function/quality of life. 50th percentile is the average of the general population and indicates half of respondents had a worse score. OBJECTIVE MEASURES WITH LEVEL OF FUNCTION: Pelvic Floor Pregnancies: 4 Births: 4 Vaginal Delivery: Standard Pain with penetration: Pain after intercourse;Pain with internal medical exam Urinary/Bowel History : Urinary History;Bowel History Difficulty starting stream: No Incomplete emptying: Sometimes Stress Incontinence: Cough/sneeze Urgency: Sometimes Frequency of Urgency Episodes: 2x/week Frequency of Leaks Secondary to Urge: 2x/week Nocturia (times per night): 0 Daytime Frequency (hours): 0.5-1 Fluid Intake: Coffee;Pop/Diet Pop;Water;Tea;Juice (8 oz measurements) Water : 2 Coffee: 4 Tea : 2 Juice : 2 Pop/Diet Pop : 3 Difficulty evacuating / Excessive Straining: No Incomplete emptying: No Bowel Movement Frequency: 1x/day Fecal incontinence: No Pelvic Floor Muscle Assessment Consent for pelvic assessment/testing and treatment: (PF mm assessment deferred due to current yeast infection.) Diaphragmatic Breathing : Good LE AROM R LE AROM: WFL L LE AROM: WFL LE Flexibility Flexibility: Hamstring Flexibility;Hip Adductor;Hip Internal Rotation Flexibility;Hip External Rotation Flexibility R Hamstring Flexibility: Min restrictions L Hamstring Flexibility: Min restrictions R Adductor Flexibility: Min restrictions L Adductor Flexibility: Min restrictions R Hip Internal Rotation Flexibility: Min restrictions L Hip Internal Rotation Flexibility: Min restrictions R Hip External Rotation Flexibility: Min restrictions L Hip External Rotation Flexibility: Min restrictions LE Strength Trunk Strength: Lower Abdominals: 4/5 R LE Strength: 5/5 L LE Strength: 5/5 Education: Education Learning Preferences: Demonstration;Explanation;Performance;Printed Materials Barriers: None Learning/educational needs: Home exercise program;Plan of Care Education Provided: Yes, see treatment interventions for education provided Education Provided To: Patient Education Mode/Type: Demonstration;Explanation/Discussion;Literature/Printed Materials;Performance Response to Education/Teach Back: States/Identifies;Return Demonstration TREATMENT: PT Treatment Interventions: Therapeutic Exercise;Self-Intermediate Management Evaluation Therapeutic Exercise: 1: *supine 90/90 hamstring stretch, [id number] each 2: *piriformis stretch, [id number] each 3: *diaphragmatic breathing 4: *supine adductor stretch, [id number] 5: *knack technique Skilled Intervention: Patient was educated in proper exercise technique and purpose for exercises. Reviewed and educated patient on additions/changes for home exercise program as above (*). Skilled judgment was provided in selection of appropriate interventions. Provided written instruction for home exercise program to facilitate proper performance and compliance. Self-Intermediate Management: 1: Reviewed pelvic floor anatomy and function with 3D pelvic model 2: Reviewed typical vs dysfunctional bladder health 3: Reviewed bladder irritants, importance of increasing water intake 4: Reviewed urinary urgency suppression techniques 5: Reviewed toileting techniques to fully empty bladder 6: Reviewed impact of stress on mm tension, mm tension on pain: *body scanning 7: *bladder diary: reviewed purpose and instructions 8: Reviewed strategies to improve urinary frequency Skilled Intervention: Skilled judgment in the selection of proper modification for activity of daily living/home management based on clinical presentation, deficits, and needs. Educated the patient regarding recommendations and provided written instruction to facilitate compliance. Billing * Evaluation Low Complexity: 1 Unit Therapeutic Exercise Treatment Minutes: 11 Self-Care/Home Management Treatment Minutes: 19 Total Treatment Time Minutes (timed/untimed): 48 Umm Medina PT documented in this encounterAdena [facility]08-15-2022 Miscellaneous Notes* Telephone Encounter - Hannah Merritt LPN - 11/16/2021 8:27 AM EDT Pt returned call and was given below information and pt voiced understanding with no further questions. Hannah Merritt LPN * Telephone Encounter - Lexi Becker RN - 11/16/2021 8:22 AM EDT Attempted to notify patient. No answer and unable to leave a voicemail. Lexi Becker RN * Telephone Encounter - Claire Johnson APRN.CNP - 11/16/2021 7:02 AM EDT BV positive. To treat with Flagyl 500mg PO BID for 7 days. 1) No alcohol during treatment and for 24 hours after last dose. 2) No intercourse during treatment. 3) Probiotic by mouth once daily for 30 days or as needed. Claire Johnson APRN.CNP documented in this encounterAdena [facility]08-12-2022 History of Present illness Narrative* Claire Elizabeth, HR RECEPTIONIST.RN PSYCH - 11/13/2021 8:18 AM EDT Noemi Alonso is a 56 year old female who presents for problem visit vaginal/pelvic pain for several month(s). HPI: Patient presents today with complaints of pelvic and vaginal pain that has been ongoing for many months. She was evaluated by Dr. Fortune and will start pelvic floor therapy on November 17. Patientstates that she had to quit her job because the pain is so bad after she stands for several hours that she just has to lay down. [place] is also very painful and currently not having sex due to the pain. Dr. Fortune diagnosed her with stage II cystocele rectocele stage I and stage I uterine prolapse. 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 Needs repeat chest CT 03/2021. Migraine headache Smoker 2020 Tension headache 10/06/2018 Well adult exam 10/06/2018 Last done: 10/06/18 PAST SURGICAL HISTORY Procedure Laterality Date COLONOSCOPY 4-5 years ago EGD 4-5 years ago L'SCOPE CHOLECYSTECTOMY 2018 LEXISCAN STRESS TEST 03/21/2020 negative LIGATE FALLOPIAN TUBE age 23 - at [facility] PAST SURGICAL HISTORY OF 04/2014 heart cath, old recoreds was WNL FAMILY HISTORY Problem Relation Age of Onset Hypertension Mother Diabetes Mother other (accident) Father Diabetes Sister Diabetes Sister other (hypertention) Sister Hypertension Brother Hypertension Brother Hypertension Brother other (broch asthma) Son other (testical cancer) Son Social History Tobacco Use Smoking status: Some Days Smokeless tobacco: Never Tobacco comments: 1 -2 cigarettes per week Vaping Use Vaping Use: Never used Substance Use Topics Alcohol use: Yes Comment: occasionally Drug use: No Current Outpatient Medications Medication Sig ketoconazole (NIZORAL) 2 % cream Apply to affected area once daily. nystatin (MYCOSTATIN) powder Apply 1 application to affected area four times daily. famotidine (PEPCID) 20 mg tablet Take 1 tablet by mouth twice daily. atorvastatin (LIPITOR) 20 mg tablet Take 1 tablet by mouth daily at bedtime. For cholesterol. cyclobenzaprine (FLEXERIL) 10 mg tablet Take 1 tablet by mouth twice daily as needed for muscle spasm. loratadine (CLARITIN) 10 mg tablet Take 1 tablet by mouth once daily. omeprazole (PRILOSEC) 40 mg capsule Take 1 capsule by mouth once daily. propranolol ER (INDERAL LA) 160 mg Cs24 Take 1 capsule by mouth once daily. SUMAtriptan (IMITREX STATDOSE PEN) 6 mg/0.5 mL kit Inject 0.5 mL subcutaneously as needed for migraine headache (see administration instructions). May repeat in 1 hour if needed. Max of 12 mg in 24 hrs. ondansetron orally disintegrating (ZOFRAN ODT) 4 mg disintegrating tablet Take 1 tablet by mouth every 6 hours as needed for nausea/vomiting. celecoxib (CELEBREX) 200 mg capsule Take 1 capsule by mouth twice daily. (Patient not taking: Reported on 07/18/2021 ) No current facility-administered medications for this visit. Allergies As of Date: 11/13/2021 (No Known Allergies) Fully Assessed 11/13/2021 REVIEW OF SYSTEMS Expanded ROS: N/A Allergies and current medication updated:Yes EXAM: Wt 155 lb (70.3kg) GENERAL: pleasant, female in no apparent distress HEENT: Normocephalic, atraumatic, mucus membranes moist, and no lesions CHEST: Normal inspiratory effort ABDOMEN: soft, non-tender, and no masses PELVIC: external genitalia normal, normal Bartholin's glands, urethra, [place]'s glands, no vulvar lesions, no cervical lesions, physiologic discharge present, normal appearing perineal body and perianal region, cystocele 2nd degree, rectocele 1st degree, cervical prolapse 1st degree BIMANUAL: uterus normal size, shape and consistency, no adnexal masses, and Moderate tenderness NEURO: alert and oriented x3,exam grossly non-focal EXTREMITIES: normal ASSESSMENT/PLAN: 1. Vaginal pain - ICD9: 625.9, ICD10: R10.2 - Vaginal estrogen orderd - BACT/HOMA VAG GRAM STAIN - follow up with Dr Fortune after completion of therapy Claire Johnson APRN.CNP Medical Decision Making: Problems: Low: Stable chronic illness Data: Unique test(s) ordered: 1 Risk: Low: Low risk from testing/treatment Moderate: Drug management Medical Decision Making Level: 3 - Low documented in this encounterAdena [facility]08-11-2022 Miscellaneous Notes* Telephone Encounter - Janene Hood RN - 11/12/2021 2:33 PM EDT Patient notified. Janene Hood RN * Telephone Encounter - Ally Hammonds LPN - 11/12/2021 10:32 AM EDT Attempted to call patient. Could not leave a message. VM is full * Telephone Encounter - Ally Hammonds LPN - 11/12/2021 10:32 AM EDT ----- Message from Harriet Wagner APRN.CNM sent at 11/12/2021 8:57 AM EDT ----- Ultrasound reviewed. Please notify patient of the following findings: Bilateral ovarian cysts that are stable in size when compared to most recent ultrasound. A simple ovarian cyst less than 7cm in a postmenopausal woman is likely benign. Follow up imaging for stability is recommended in 12 months. Order placed for follow up ultrasound in 1 year. Harriet Wagner APRN.CNM documented in this encounterAdena [facility]07-22-2022 Miscellaneous Notes* Telephone Encounter - Breann Davis LPN - 10/23/2021 9:32 AM EDT Pt advised of Cheryl's message and instructions. Pt verbalizes understanding. Pt declines appointment at this time. She will try Flonase and will call back for an appointment next week if it does not help with her sx. Breann Davis LPN * Telephone Encounter - Cheryl Sahu PA-C - 10/23/2021 9:26 AM EDT Continue mucinex. Could try flonase. Offer an appointment to be seen. * Telephone Encounter - Salome Barnes RN - 10/23/2021 9:12 AM EDT Patient calls and states that for 3 weeks she has had cold symptoms. Patient was seen in the ER dueto nausea and vomiting. Patient says that she was tested for Covid and she was negative. Patient has been taking Muccinex DM and Aspen Garrett which has not been helping with the drainage. Patient states that drainage goes into the back of her throat and makes her cough. Patient asking provider what else she can take to help with the drainage and cough? Please review and advise, Salome Barnes RN documented in this encounterAdena Fayette [facility] Center07-05-2022 NoteHNO ID: [id number] Author: Caitlyn Fortune MD Service: ? Author Type: Physician Type: Progress Notes Filed: 10/06/2021 12:03 PM Note Text: Female Pelvic Medicine AND Reconstructive Surgery Consult CHIEF COMPLAINT: Noemi Alonso is a 56 year old female who presents for consultation requested by Harriet Wagner APRN.CNM for an opinion regarding Pelvic Organ Prolapse, pelvic pain. HISTORY OF PRESENT ILLNESS: Pt reports vaginal pain and bulge. The pain started 8 months ago. Pain started initially with heavy lifting. The pain feels sharp. She cannot work or stand for prolonged period due to the pain. Lifting even 5 lbs causes pain. Also bothered by [place] and urgency incontinence. Bilateral ovarian cysts on transabdominal pelvic US 07/16/21. 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 She has no history of an abnormal mammogram LMP: No LMP recorded. Patient is postmenopausal.; Menopause post, denies PMB Menstrual history: NA; Deliveries: 4 x History of third or fourth degree laceration: yes Weight of largest baby: 7 lbs 8 oz Sexual function Sexually active: yes, pain with intercourse [id number] Do you: Usually experience pressure in the lower abdomen? Yes, quite a bit bothersome (4) Usually experience heaviness or dullness in the pelvic area? No (0) Usually have a bulge or something falling out that you can see or feel in your vaginal area? Yes, quite a bit bothersome (4) Ever have to push on the vagina or around the rectum to have or complete a bowel movement? No (0) Usually experience a feeling of incomplete bladder emptying? Yes, somewhat bothersome (2) Ever have to push up on a bulge in the vaginal area with your fingers to start or complete urination? No (0) Feel you need to strain too hard to have a bowel movement? No (0) Feel you have not completely emptied your bowels at the end of a bowel movement? No (0) Usually lose stool beyond your control if your stool is well formed? No (0) Usually lose stool beyond your control if your stool is loose? No (0) Usually lose gas from the rectum beyond your control? Yes, not at all bothersome (1) Usually have pain when you pass your stool? Yes, moderately bothersome (3) Experience a strong sense of urgency and have to ly to the bathroom to have a bowel movement? No (0) Does part of your bowel ever pass through the rectum and bulge outside during or after a bowel movement? No (0) Usually experience frequent urination? Yes, somewhat bothersome (2) Usually experience urine leakage associated with a feeling of urgency, that is, a strong sensation of needing to go to the bathroom? Yes, somewhat bothersome (2) Usually experience urine leakage related to coughing, sneezing or laughing? Yes, moderately bothersome (3) Usually experience small amounts of urine leakage (that is, drops)? No (0) Usually experience difficulty emptying your bladder? No (0) Usually experience pain or discomfort in the lower abdomen or genital region? Yes, quite a bit bothersome (4) Do you have pain associated with your prolapse (not pressure or fullness) No PAST SURGICAL HISTORY Procedure Laterality Date - COLONOSCOPY 4-5 years ago - EGD 4-5 years ago - L'SCOPE CHOLECYSTECTOMY 2018 - LEXISCAN STRESS TEST 03/21/2020 negative - LIGATE FALLOPIAN TUBE age 23 - at [facility] - PAST SURGICAL HISTORY OF 04/2014 heart cath, old recoreds was WNL PAST MEDICAL HISTORY Diagnosis Date - Anxiety disorder 07/24/2014 - Elevated hemoglobin A1c 07/18/2021 - Environmental allergies 10/06/2018 - Essential hypertension 07/24/2014 - GERD without esophagitis 12/12/2020 - History of SD (myocardial infarction) 07/11/2019 2016 - Lung nodules 2020 CT chest [place] 03/2020 : 4 mm x 4 mm right middle lobe new, 4 mm x 4 mm right lower lobe stable from 04/2014 and 5 mm x 4 mm left upper lobe stable from 04/2014. Needs repeat chest CT 03/2021. - Migraine headache - Smoker 2020 - Tension headache 10/06/2018 - Well adult exam 10/06/2018 Last done: 10/06/18 FAMILY HISTORY Problem Relation Age of Onset - Hypertension Mother - Diabetes Mother - other (accident) Father - Diabetes Sister - Diabetes Sister - other (hypertention) Sister - Hypertension Brother - Hypertension Brother - Hypertension Brother - other (broch asthma) Son - other (testical cancer) Son Denies family h/o breast, ovarian, uterine, or colon cancer Current Outpatient Medications Medication Sig - ketoconazole (NIZORAL) 2 % cream Apply to affected area once daily. - nystatin (MYCOSTATIN) powder Apply 1 application to affected area four times daily. - famotidine (PEPCID) 20 mg tablet Take 1 tablet by mouth twice daily. - atorvastatin (LIPITOR) 20 mg tablet Take 1 tablet by mouth daily at bedtime. For cholesterol. - cyclobenzaprine (FLEXER (more content not included)...[facility]07-05-2022 Instructions* Patient Instructions* Caitlyn Fortune MD - 10/06/2021 11:50 AM EDT Schedule transvaginal pelvic US as previously ordered by Harriet Wagner APRN.CNM Start pelvic floor physical therapy - [place] Follow up with Andreas Hooker NP in 4-6 months after completing pelvic floor PT documented in this encounterA[facility] History of Present illness Narrative* Caitlyn Fortune MD - 10/06/2021 11:00 AM EDT Female Pelvic Medicine & Reconstructive Surgery Consult CHIEF COMPLAINT: Noemi Alonso is a 56 year old female who presents for consultation requested by Harriet Wagner APRN.CNM for an opinion regarding Pelvic Organ Prolapse, pelvic pain. HISTORY OF PRESENT ILLNESS: Pt reports vaginal pain and bulge. The pain started 8 months ago. Pain started initially with heavylifting. The pain feels sharp. She cannot work or stand for prolonged period due to the pain. Lifting even 5 lbs causes pain. Also bothered by YASMANY and urgency incontinence. Bilateral ovarian cysts on transabdominal pelvic US 07/16/21. 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 She has no history of an abnormal mammogram LMP: No LMP recorded. Patient is postmenopausal.; Menopause post, denies PMB Menstrual history: NA; Deliveries: 4 x History of third or fourth degree laceration: yes Weight of largest baby: 7 lbs 8 oz Sexual function Sexually active: yes, pain with intercourse [id number] Do you: Usually experience pressure in the lower abdomen? Yes, quite a bit bothersome (4) Usually experience heaviness or dullness in the pelvic area? No (0) Usually have a bulge or something falling out that you can see or feel in your vaginal area? Yes, quite a bit bothersome (4) Ever have to push on the vagina or around the rectum to have or complete a bowel movement? No (0) Usually experience a feeling of incomplete bladder emptying? Yes, somewhat bothersome (2) Ever have to push up on a bulge in the vaginal area with your fingers to start or complete urination? No (0) Feel you need to strain too hard to have a bowel movement? No (0) Feel you have not completely emptied your bowels at the end of a bowel movement? No (0) Usually lose stool beyond your control if your stool is well formed? No (0) Usually lose stool beyond your control if your stool is loose? No (0) Usually lose gas from the rectum beyond your control? Yes, not at all bothersome (1) Usually have pain when you pass your stool? Yes, moderately bothersome (3) Experience a strong sense of urgency and have to ly to the bathroom to have a bowel movement? No (0) Does part of your bowel ever pass through the rectum and bulge outside during or after a bowel movement? No (0) Usually experience frequent urination? Yes, somewhat bothersome (2) Usually experience urine leakage associated with a feeling of urgency, that is, a strong sensation of needing to go to the bathroom? Yes, somewhat bothersome (2) Usually experience urine leakage related to coughing, sneezing or laughing? Yes, moderately bothersome (3) Usually experience small amounts of urine leakage (that is, drops)? No (0) Usually experience difficulty emptying your bladder? No (0) Usually experience pain or discomfort in the lower abdomen or genital region? Yes, quite a bit bothersome (4) Do you have pain associated with your prolapse (not pressure or fullness) No PAST SURGICAL HISTORY Procedure Laterality Date COLONOSCOPY 4-5 years ago EGD 4-5 years ago L'SCOPE CHOLECYSTECTOMY 2018 LEXISCAN STRESS TEST 03/21/2020 negative LIGATE FALLOPIAN TUBE age 23 - at [facility] PAST SURGICAL HISTORY OF 04/2014 heart cath, old recoreds was WNL PAST MEDICAL HISTORY Diagnosis Date Anxiety disorder 07/24/2014 Elevated hemoglobin A1c 07/18/2021 Environmental allergies 10/06/2018 Essential hypertension 07/24/2014 GERD without esophagitis 12/12/2020 History of SD (myocardial infarction) 07/11/[address] chest 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 Needs repeat chest CT 03/2021. Migraine headache Smoker 2020 Tension headache 10/06/2018 Well adult exam 10/06/2018 Last done: 10/06/18 FAMILY HISTORY Problem Relation Age of Onset Hypertension Mother Diabetes Mother other (accident) Father Diabetes Sister Diabetes Sister other (hypertention) Sister Hypertension Brother Hypertension Brother Hypertension Brother other (broch asthma) Son other (testical cancer) Son Denies family h/o breast, ovarian, uterine, or colon cancer Current Outpatient Medications Medication Sig ketoconazole (NIZORAL) 2 % cream Apply to affected area once daily. nystatin (MYCOSTATIN) powder Apply 1 application to affected area four times daily. famotidine (PEPCID) 20 mg tablet Take 1 tablet by mouth twice daily. atorvastatin (LIPITOR) 20 mg tablet Take 1 tablet by mouth daily at bedtime. For cholesterol. cyclobenzaprine (FLEXERIL) 10 mg tablet Take 1 tablet by mouth twice daily as needed for muscle spasm. loratadine (CLARITIN) 10 mg tablet Take 1 tablet by mouth once daily. omeprazole (PRILOSEC) 40 mg capsule Take 1 capsule by mouth once daily. propranolol ER (INDERAL LA) 160 mg Cs24 Take 1 capsule by mouth once daily. SUMAtriptan (IMITREX STATDOSE PEN) 6 mg/0.5 mL kit Inject 0.5 mL subcutaneously as needed for migraine headache (see administration instructions). May repeat in 1 hour if needed. Max of 12 mg in 24 hrs. ondansetron orally disintegrating (ZOFRAN ODT) 4 mg disintegrating tablet Take 1 tablet by mouth every 6 hours as needed for nausea/vomiting. celecoxib (CELEBREX) 200 mg capsule Take 1 capsule by mouth twice daily. (Patient not taking: Reported on 07/18/2021 ) No current facility-administered medications for this visit. ALLERGIES No Known Allergies SOCIAL HISTORY Social History Tobacco Use Smoking status: Current Some Day Smoker Smokeless tobacco: Never Used Tobacco comment: 1 -2 cigarettes per week Vaping Use Vaping Use: Never used Substance Use Topics Alcohol use: Yes Comment: occasionally Drug use: No Occupation: Unemployed Marital Status: Engaged REVIEW OF SYSTEMS General: Negative for unintentional weight loss, fever, chills, or weakness. Skin: Negative for rash or itching. Psychiatric: Negative for depression. Reports normal stress. Neurologic: Negative for new headache or syncope. Endocrine: hot flashes Cardiovascular: Negative for recent chest pain, chest pressure or chest discomfort. Hematologic/Lymphatic: Negative for easy bruising or excessive bleeding. Respiratory: cough Gastrointestinal: decreased appetite Musculoskeletal: Negative for muscle pain, back pain, joint pain or stiffness. I have confirmed and edited as necessary, the PFSH and ROS obtained by others. Caitlyn Fortune MD Clay Dry Press Operator offered: Patient accepts, visit chaperoned by Ita Block LPN. OBJECTIVE: BP 122/76 Ht 5' 5 (1.65m) Wt 160 lb (72.6kg) BMI 26.63 kg/(m^2). Physical Exam Constitutional: BMI - Body mass index is 26.63 kg/m . General Appearance: Well appearing, alert, in no acute distress, well-hydrated, well nourished. Skin: Skin color, texture, turgor normal, no suspicious rashes or lesions Lungs: Unlabored on room air Heart: Not examined Breasts: Deferred Abdomen: Abdomen soft, non-tender, No masses, organomegaly Pelvic: External Genitalia: erythematous well demarcated rash in bilateral groin folds Vagina: Ant Wall - Cystocele Stage II ; Post Wall - Rectocele Stage I Cervix / Jber - Stage l prolapse POP-Q: Prolapse Noted: Yes Aa = -1.0 Ba = -1.0 C = -7.0 gh = 3.5 pb = 2.0 tvl = 10.0 Ap = -2.0 Bp = -2.0 D = -9.0 Vaginal epithelium: Atrophic Cervix: Normal Urethra: Hypermobile, Supine cough stress test negative Bimanual: Normal size anteverted uterus, No palpable masses, +uterine and adnexal tenderness Rectovaginal: Deferred Levator Ani Contraction: 0 Levator Ani Tone: increased Levator Ani Tenderness: Yes, palpation replicates reported pain Saddle Sensory Exam (S2-4): normal Urine dip +nitrite The urethra was prepped with betadine. A lubricated 14F catheter was inserted and the postvoid residual urine was collected. The PVR was <5 ml. IMPRESSION: Noemi Alonso is a 56 year old female with levator spasm, stage 2 cystocele, mixed urinary incontinence, bilateral ovarian cysts, acute cystitis, tinea cruris. PLAN: 1. Levator spasm - Exam findings reviewed and discussed. Recommended pelvic floor physical therapy for initial management. Expectations for pelvic floor PT reviewed and discussed. - CONSULT TO PHYSICAL THERAPY; Future 2. Cystocele, midline - Stage 2 above the hymen - We discussed the options for management of pelvic organ prolapse including pelvic floor muscle exercises/pelvic floor physical therapy, pessary, and briefly surgery. - Recommended pelvic floor PT for initial management due to co-existing levator spasm. - Discussed that I would not recommend surgical management of early stage 2 prolapse until pain symptoms have been addressed and bilateral ovarian cysts have been reevaluated. - CONSULT TO PHYSICAL THERAPY; Future 3. Mixed stress and urge urinary incontinence - CONSULT TO PHYSICAL THERAPY; Future 4. Bilateral ovarian cysts - Recommended repeat pelvic US as previously ordered by Harriet Wagner APRN.CNM 5. Acute cystitis without hematuria - URINE CULTURE - nitrofurantoin monohydrate and macrocrystal (MACROBID) 100 mg capsule; Take 1 capsule by mouth twice daily for 5 days. Dispense: 10 capsule; Refill: 0 6. Tinea cruris - clotrimazole (LOTRIMIN, CLOTRIM) 1 % cream; Apply to affected area twice daily for 14 days. Dispense: 45 g; Refill: 0 My final recommendations will be communicated back to the requesting physician by way of shared Medical record or letter via US mail. Caitlyn Fortune MD documented in this encounterA[facility]05-27-2022 Miscellaneous Notes* Telephone Encounter - Breann Davis LPN - 08/28/2021 12:07 PM EDT Pt advised of message below.. States she has to see a specialist in [place]. Advised her she would need to get pain medication from them then or her [facility] [employer].. Pt verbalizes understanding and states she just have to go to the ER then. Breann Davis LPN * Telephone Encounter - Osvaldo Sue MD - 08/27/2021 5:01 PM EDT Advise patient she needs to address her pelvic pain with her [facility] [employer]. I gave her the one time [place] script only until she got in with them. This was discussed with her at that time. * Telephone Encounter - Ivonne Simmons LPN - 08/27/2021 2:42 PM EDT Patient has been identified by name and date of : Yes Patient phones for refill(s): Pending Prescriptions Disp Refills HYDROCODONE 7.5 MG-ACETAMINOPHEN 325 MG TABLET 28 tablet 0 Sig: Take 1 tablet by mouth every 6 hours as needed for pain for up to 7 days. MAURISIO Class: C-II SAIDA: No Date of last office visit in primary care: 07/18/2021, has appt 03/18/2022 Last 2 Encounter Wt Readings: Date: Wt: 08/17/2021 72.9 kg (160 lb 12.8 oz) 08/17/2021 73 kg (161 lb) Previous labs/tests for medication: Not applicable Please advise. Thank you. Ivonne Simmons LPN Patient said now has to wait until October to see specialist, she is having pelvic pain documented in this encounterA[facility]05-23-2022 Miscellaneous Notes* Telephone Encounter - Hannah Merritt LPN - 08/24/2021 4:48 PM EDT Attempted to contact pt again, unable to leave message d/t mailbox being full. Pt has not respondedto letter mailed to pt. Hannah Merritt LPN * Telephone Encounter - Elvia Oneil RN - 08/21/2021 11:30 AM EDT 2nd attempt made to contact patient. No answer and unable to leave a message, voicemail box is full. Elvia Clairce RN * Telephone Encounter - Hannah Merritt LPN - 08/20/2021 8:35 AM EDT Attempted to contact pt with below results. Pt's voice mail if full, unable to leave message. Letter mailed to pt asking her to call office for results. Hannah Merritt LPN * Telephone Encounter - Hannah Merritt LPN - 08/20/2021 8:35 AM EDT ----- Message from Harriet Wagner APRN.CNM sent at 08/20/2021 7:54 AM EDT ----- Please notify patient that swab was positive for Bacterial Vaginosis. A prescription was called in for Flagyl 500mg PO BID x 7 days. No alcohol while on medication or 24 hours after last dose. No intercourse during treatment. It is also recommended that patient take a probiotic for 30 days- [place]agen. Harriet Wagner APRN.CNM documented in this encounterAden[facility]05-19-2022 Miscellaneous Notes* Telephone Encounter - Breann Davis LPN - 08/20/2021 11:08 AM EDT Attempted to contact pt. vm is full. Result letter mailed to pt. Breann Davis LPN * Telephone Encounter - Breann Davis LPN - 08/19/2021 2:37 PM EDT Attempted to contact pt again. No answer and vm is full. Will need to try again later. Breann Davis LPN * Telephone Encounter - Breann Davis LPN - 08/19/2021 10:35 AM EDT Attempted to contact pt. No answer and vm is full will try again later. Breann Davis LPN * Telephone Encounter - Diana Marcano Ma - 08/18/2021 12:22 PM EDT Tried calling patient but no answer and vm was full Diana Marcano Ma * Telephone Encounter - Cheryl Sahu PA-C - 08/18/2021 12:07 PM EDT Let patient know that labs that were done yesterday were all normal. Cheryl Sahu PA-C documented in this encounterAdena [facility]05-16-2022 History of Present illness Narrative* Cheryl Sahu PA-C - 08/17/2021 10:07 AM EDT Chief Complaint Patient presents with: Recheck HPI Noemi Alonso is a 56 year old female who presents here today for Chronic Medical Conditions.. Patient with hx of HTN, GERD, migraines, RAFA, elevated a1c, smoker, lung nodules and those as below. Patient denies specific concerns today. Has noted some hair loss. Past medical history, appointments, medications, allergies reviewed. Previous Medical History PAST MEDICAL HISTORY Diagnosis Date Anxiety disorder 07/24/2014 Elevated hemoglobin A1c 07/18/2021 Environmental allergies 10/06/2018 Essential hypertension 07/24/2014 GERD without esophagitis 12/12/2020 History of SD (myocardial infarction) 07/11/2019 [address] chest 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 Needs repeat chest CT 03/2021. Migraine headache Smoker 2020 Tension headache 10/06/2018 Well adult exam 10/06/2018 Last done: 10/06/18 Previous Surgical History PAST SURGICAL HISTORY Procedure Laterality Date COLONOSCOPY 4-5 years ago EGD 4-5 years ago L'SCOPE CHOLECYSTECTOMY 2018 LEXISCAN STRESS TEST 03/21/2020 negative PAST SURGICAL HISTORY OF 04/2014 heart cath, old recoreds was WNL Family History FAMILY HISTORY Problem Relation Age [...] mg tablet Take 1 tablet by mouth twice daily. atorvastatin (LIPITOR) 20 mg tablet Take 1 tablet by mouth daily at bedtime. For cholesterol. cyclobenzaprine (FLEXERIL) 10 mg tablet Take 1 tablet by mouth twice daily as needed for muscle spasm. loratadine (CLARITIN) 10 mg tablet Take 1 tablet by mouth once daily. omeprazole (PRILOSEC) 40 mg capsule Take 1 capsule by mouth once daily. propranolol ER (INDERAL LA) 160 mg Cs24 Take 1 capsule by mouth once daily. SUMAtriptan (IMITREX STATDOSE PEN) 6 mg/0.5 mL kit Inject 0.5 mL subcutaneously as needed for migraine headache (see administration instructions). May repeat in 1 hour if needed. Max of 12 mg in 24 hrs. ondansetron orally disintegrating (ZOFRAN ODT) 4 mg disintegrating tablet Take 1 tablet by mouth every 6 hours as needed for nausea/vomiting. celecoxib (CELEBREX) 200 mg capsule Take 1 capsule by mouth twice daily. (Patient not taking: Reported on 07/18/2021 ) No current facility-administered medications on file prior to visit. Social History Social History Tobacco Use Smoking status: Current Some Day Smoker Smokeless tobacco: Never Used Tobacco comment: 1 -2 cigarettes per week Vaping Use Vaping Use: Never used Substance Use Topics Alcohol use: Yes Comment: occassionaly Drug use: No Review of Symptoms REVIEW OF SYSTEMS GENERAL: No weight loss, malaise or fevers NECK: Negative for lumps, goiter, pain and significant neck swelling RESPIRATORY: Negative for cough, hemoptysis, wheezing, COPD, dyspnea or shortness of breath CARDIOVASCULAR: Negative for chest pain, leg swelling, hypertension, CHF or palpitations NEURO: No history of headaches, syncope, paralysis, seizures or tremors EXAM: BP 108/80 (BP Site: Left Arm, BP Position: Sitting, BP Cuff Size: Regular Adult) Pulse 64 Temp 36.6 C (97.8 F) Resp 16 Wt 73 kg (161 lb) BMI 27.83 kg/m General Appearance: Well appearing, alert, in no acute distress, well-hydrated, well nourished.. Neck: Supple, no adenopathy; thyroid symmetric, normal size, no bruits. Lungs: Lungs clear to auscultation. No wheezing, rhonchi, rales.. Heart: RRR without murmur, gallop, or rubs. No ectopy. Extremities: No deformities, edema, skin discoloration, clubbing or cyanosis. Good capillary refill. . Peripheral Pulses: Normal. Health Maintenance List COVID-19 VACCINE(1) Never done HIV SCREENING Never done BP CONTROLLED (<130/80) Never done ONE PNEUMOVAX PRIOR TO AGE 65 Never done MAMMOGRAM Never done SHINGRIX VACCINE(1 of 2) Never done COLORECTAL CANCER SCREENING due on 12/13/2021 ANNUAL PCP TEAM CHRONIC DISEASE VISIT due on 07/18/2022 DEPRESSION SCREENING due on 08/17/2022 DTAP,TDAP,TD(2 - Td or Tdap) due on 12/12/2023 PAP TESTING due on 05/15/2024 HPV TESTING due on 05/15/2024 DIABETES SCREEN due on 08/15/2024 LIPID SCREEN due on 08/15/2026 INFLUENZA Completed HEPATITIS C SCREENING Completed MENINGOCOCCAL CONJUGATE Aged Out Data reviewed Component Latest Ref Rng & Units 08/15/2021 Protein, Total 6.3 - 8.0 g/dL 7.3 Albumin 3.9 - 4.9 g/dL 4.6 Calcium 8.5 - 10.2 mg/dL 10.3 (H) Bilirubin, Total 0.2 - 1.3 mg/dL 0.4 Alkaline Phosphatase 34 - 123 U/L 86 AST 13 - 35 U/L 85 (H) ALT 7 - 38 U/L 113 (H) Glucose 74 - 99 mg/dL 118 (H) BUN 7 - 21 mg/dL 9 Creatinine 0.58 - 0.96 mg/dL 0.60 Sodium 136 - 144 mmol/L 140 Potassium 3.7 - 5.1 mmol/L 4.7 Chloride 97 - 105 mmol/L 101 CO2 22 - 30 mmol/L 27 Anion Gap 9 - 18 mmol/L 12 eGFR >=60 mL/min/1.73m 107 Total Cholesterol, Nonfasting <200 mg/dL 180 Triglycerides, Nonfasting <150 mg/dL 292 (H) HDL Cholesterol, Nonfasting >39 mg/dL 46 LDL Cholesterol, Nonfasting <100 mg/dL 76 Non HDL Cholesterol, Nonfasting <130 mg/dL 134 (H) VLDL Cholesterol, Nonfasting <30 mg/dL 58 (H) Total Chol/HDL Ratio, Nonfasting <5.10 mg/dL 3.91 LDL/HDL Ratio, Nonfasting <2.54 mg/dL 1.65 Hemoglobin A1C 4.3 - 5.6 % 5.7 (H) Estimated Average Glucose mg/dL 117 Vitamin B12 232-1,245 pg/mL 795 Magnesium 1.7 - 2.3 mg/dL 2.2 . ASSESSMENT/PLAN: 1. Hair loss - ICD9: 704.00, ICD10: L65.9 (primary diagnosis) Check - TSH BLD - FOLATE SERUM - CBC + DIFF - IRON + TIBC 2. Lung nodules - ICD9: 793.19, ICD10: R91.8 check - CT CHEST WO IVCON 3. Fatty liver - ICD9: 571.8, ICD10: K76.0 Increasing LFTs Recheck in 2 weeks - HEPATIC FUNCTION PNL 4. Hypercalcemia - ICD9: 275.42, ICD10: E83.52 Recheck in 2 weeks - CALCIUM TOTAL BLD 5. Essential hypertension - ICD9: 401.9, ICD10: I10 - good control - Continue current medication(s) - Recommended regular aerobic exercise. - Recommend home blood pressure monitoring, to bring results in on next visit - Goal of BP <130/80 6. Elevated hemoglobin A1c - ICD9: 790.29, ICD10: R73.09 stable 7. GERD without esophagitis - ICD9: 530.81, ICD10: K21.9 - stable 8. Anemia, unspecified type - ICD9: 285.9, ICD10: D64.9 stable 9. Generalized anxiety disorder - ICD9: 300.02, ICD10: F41.1 stable 10. Smoker - ICD9: 305.1, ICD10: F17.200 - Cessation encouraged. - Physiologic and physical aspects of tobacco addiction as well as strategies for quitting were discussed. - Counseling was given focusing on the harmful effects of this addiction especially given the patient's medical condition(s) which will be worsened because of the chemicals in tobacco. Cheryl Sahu PA-C documented in this encounterAdena [facility]04-22-2015 History of Past illness Narrative* Problem Noted Date Resolved Date Heart attack 07/24/2014 documented as of this encounter (statuses as of 08/17/2021) [address]22-2015 History of Past illness Narrative* Problem Noted Date Resolved Date Heart attack 07/24/2014 documented as of this encounter (statuses as of 08/20/2021) [address]22-2015 History of Past illness Narrative* Problem Noted Date Resolved Date Heart attack 07/24/2014 documented as of this encounter (statuses as of 08/27/2021) [address]22-2015 History of Past illness Narrative* Problem Noted Date Resolved Date Heart attack 07/24/2014 documented as of this encounter (statuses as of 08/28/2021) [address]22-2015 History of Past illness Narrative* Problem Noted Date Resolved Date Heart attack 07/24/2014 documented as of this encounter (statuses as of 10/06/2021) [address]22-2015 History of Past illness Narrative* Problem Noted Date Resolved Date Heart attack 07/24/2014 documented as of this encounter (statuses as of 10/23/2021) [address]22-2015 History of Past illness Narrative* Problem Noted Date Resolved Date Heart attack 07/24/2014 documented as of this encounter (statuses as of 11/11/2021) [address]22-2015 History of Past illness Narrative* Problem Noted Date Resolved Date Heart attack 07/24/2014 documented as of this encounter (statuses as of 11/12/2021) [address]22-2015 History of Past illness Narrative* Problem Noted Date Resolved Date Heart attack 07/24/2014 documented as of this encounter (statuses as of 11/13/2021) [address]22-2015 History of Past illness Narrative* Problem Noted Date Resolved Date Heart attack 07/24/2014 documented as of this encounter (statuses as of 11/16/2021) [address] History of Past illness Narrative* Problem Noted Date Resolved Date Heart attack 07/24/2014 documented as of this encounter (statuses as of 11/17/2021) [address]22-2015 History of Past illness Narrative* Problem Noted Date Resolved Date Heart attack 07/24/2014 documented as of this encounter (statuses as of 12/08/2021) [address] History of Past illness Narrative* Problem Noted Date Resolved Date Heart attack 07/24/2014 documented as of this encounter (statuses as of 01/04/2022) [address] History of Past illness Narrative* Problem Noted Date Resolved Date Heart attack 07/24/2014 documented as of this encounter (statuses as of 01/04/2022) [address] History of Past illness Narrative* Problem Noted Date Resolved Date Heart attack 07/24/2014 documented as of this encounter (statuses as of 01/06/2022) [address]-2015 History of Past illness Narrative* Problem Noted Date Resolved Date Heart attack 07/24/2014 documented as of this encounter (statuses as of 01/06/2022) [address]2015 History of Past illness Narrative* Problem Noted Date Resolved Date Heart attack 07/24/2014 documented as of this encounter (statuses as of 01/07/2022) [place] [id number] History of Past illness Narrative* Problem Noted Date Resolved Date Heart attack 07/24/2014 documented as of this encounter (statuses as of 01/29/2022) [place] [address] History of Past illness Narrative* Problem Noted Date Resolved Date Heart attack 07/24/2014 documented as of this encounter (statuses as of 04/16/2022) [place] [address] History of Past illness Narrative* Problem Noted Date Resolved Date Heart attack 07/24/2014 documented as of this encounter (statuses as of 05/14/2022) [place] [address] History of Past illness Narrative* Problem Noted Date Resolved Date Heart attack 07/24/2014 documented as of this encounter (statuses as of 06/06/2022) [address]2015 History of Past illness Narrative* Problem Noted Date Resolved Date Heart attack 07/24/2014 documented as of this encounter (statuses as of 06/08/2022) [address]2015 History of Past illness Narrative* Problem Noted Date Resolved Date Heart attack 07/24/2014 documented as of this encounter (statuses as of 06/08/2022) [address]2015 History of Past illness Narrative* Problem Noted Date Resolved Date Heart attack 07/24/2014 documented as of this encounter (statuses as of 07/02/2022) [address]2015 History of Past illness Narrative* Problem Noted Date Resolved Date Heart attack 07/24/2014 documented as of this encounter (statuses as of 07/19/2022) [address]2015 History of Past illness Narrative* Problem Noted Date Resolved Date Heart attack 07/24/2014 documented as of this encounter (statuses as of 07/23/2022) [address]2015 History of Past illness Narrative* Problem Noted Date Resolved Date Heart attack 07/24/2014 documented as of this encounter (statuses as of 07/26/2022) [address]2015 History of Past illness Narrative* Problem Noted Date Diagnosed Date Resolved Date Heart attack 07/24/2014 documented as of this encounter (statuses as of 03/15/2023) [address]2015 History of Past illness Narrative* Problem Noted Date Diagnosed Date Resolved Date Heart attack 07/24/2014 documented as of this encounter (statuses as of 05/17/2023) [address]2015 History of Past illness Narrative* Problem Noted Date Diagnosed Date Resolved Date Heart attack 07/24/2014 documented as of this encounter (statuses as of 06/01/2023) [address]2015 History of Past illness Narrative* Problem Noted Date Diagnosed Date Resolved Date Heart attack 07/24/2014 documented as of this encounter (statuses as of 06/02/2023) [address]2015 History of Past illness Narrative* Problem Noted Date Diagnosed Date Resolved Date Heart attack 07/24/2014 documented as of this encounter (statuses as of 06/06/2023) [address]2015 History of Past illness Narrative* Problem Noted Date Diagnosed Date Resolved Date Heart attack 07/24/2014 documented as of this encounter (statuses as of 06/07/2023) [facility]2015 History of Past illness Narrative* Problem Noted Date Diagnosed Date Resolved Date Heart attack 07/24/2014 documented as of this encounter (statuses as of 06/09/2023) [facility] History of Past illness Narrative* Problem Noted Date Diagnosed Date Resolved Date Heart attack 07/24/2014 documented as of this encounter (statuses as of 07/11/2023) [facility] Austin [facility] Note Date/Time August 10, 2024 2:07pm [facility] Medical Records Department [address] [place] [address] Discharge Summary 08/10/24 1400 MR#: [id number] Acct: [id number] Name: NOEMI ALONSO Rep #:[id number] : 1965 59 From: Austin Mendez DO PCP: Dr. Osvaldo Sue MD Status:ADM IN [id number] Prov[facility] Date of Admission: 08/09/24 Primary Care Physician: Dr. Osvaldo Sue MD Reason For Visit: VGE, N/V/D, HYPOKALEMIA, UTI & MIGRAINE RICK Diagnosis Discharge Diagnosis (1) Gastroenteritis: Status: Acute Code(s): K52.9 - Noninfective gastroenteritis and colitis, unspecified Plan: Ongoing several days prior to arrival. Suspect due to viral gastroenteritis. CT negative. enteric panel ordered, but not collected. supportive mgmt. Patient's tolerated her diet. [facility] home (2) Acute hypokalemia: Status: Acute Code(s): E87.6 - Hypokalemia Plan: 2/2 gastroenteritis replaced earlier. monitor. Plan Abnormal urinalysis: 5-10 WBCs. UTI ruled out. DC abx. VTE prophylaxis: LMWH Medications at Discharge Home Medications propranolol 160 mg capsule,24 hr,extended release 160 mg PO DAILY 05/03/19 famotidine 20 mg tablet 20 mg PO BID #60 tabs 05/04/19 naproxen 500 mg tablet 500 mg PO BID #14 tabs 04/15/20 atorvastatin 20 mg tablet 20 mg PO QHS 08/19/22 loratadine 10 mg tablet 10 mg PO DAILY 08/19/22 omeprazole 40 mg capsule,delayed release 40 mg PO DAILY 08/19/22 sumatriptan succinate 6 mg/0.5 mL subcutaneous pen injector 6 mg subcut Q1-4H PRN migraine headache 08/19/22 gabapentin 300 mg capsule 300 mg PO TID 08/09/24 ondansetron HCl 4 mg tablet 4 mg PO Q6H PRN nausea and vomiting 08/09/24 trazodone 50 mg tablet 50 mg PO QHS 08/09/24 Hospital Course Operations None Summary of Care Provided Minutes Spent on Discharge: 32 Hospital Course: Patient presents with 4 days of nausea vomiting diarrhea. Patient presented here and started on IV fluids and overall better. Patient has since tolerated diet. Patient is doing well and be discharged home. We did order enteric panelbut that was not collected as patient had no further bowel moods while she was in the hospital. I suspect patient may have had a viral gastroenteritis, particularly norovirus, which been supportive management. Weight / BMI Weight Weight: 74.7 kg Body Mass Index (BMI) 31.1 ABG / Lab / Microbiology Data 08/10/24 05:36 08/10/24 05:36 Laboratory: Laboratory Results - last 24 hr 08/09/24 17:15: WBC 14.7 H, RBC 5.04, Hgb 16.1 H, Hct 45.8, MCV 90.9, MCH 31.9, MCHC 35.2, RDW Std Deviation 42.9, RDW Coeff of Kenji 13.0, Plt Count 330, MPV 10.2, Immature Gran % (Auto) 0.400, Neut % (Auto) 64.3, Lymph % (Auto) 27.7, Warren % (Auto) 7.2, Eos % (Auto) 0.0, Baso % (Auto) 0.4, Absolute Neuts (auto) 9.4 H, Absolute Lymphs (auto) 4.07, Nucleated RBC % 0, Sodium 146 H, Potassium 2.9 L, Chloride 104, Carbon Dioxide 26.2, Anion Gap 16 H, BUN 13, Creatinine 0.76, Estim Creat Clear Calc 80.94, Est GFR (MDRD) Non-Af 91, BUN/Creatinine Ratio 17.2, Glucose 131 H, Lactic Acid 2.0, Calcium 10.2, Magnesium 2.1, TSH 1.210 08/09/24 18:15: Urine Color Yellow, Urine Clarity Cloudy, Urine pH 6.5, Ur Specific [place] 1.015, Urine Protein 30 H, Urine Glucose (UA) Normal, Urine Ketones 15 H, Urine Occult Blood 10 H, Urine Nitrite Negative, Urine Bilirubin Negative, Urine Urobilinogen 4 H, Ur Leukocyte Esterase 25 H, Urine RBC 0-5 SEEN, Urine WBC 5-10 SEEN, Ur Squamous Epith Cells 10-25 SEEN, Urine Bacteria 1+, Urine Mucus 3+ 08/09/24 21:31: Lactic Acid 1.7 08/10/24 05:36: WBC 14.3 H, RBC 4.74, Hgb 15.0, Hct 44.9, MCV 94.7, MCH 31.6, MCHC 33.4 D, RDW Std Deviation 45.5 H, RDW Coeff of Kenji 13.1, Plt Count 293, MPV10.7, Immature Gran % (Auto) 0.300, Neut % (Auto) 53.2, Lymph % (Auto) 38.7, Warren % (Auto) 6.4, Eos % (Auto) 0.7, Baso % (Auto) 0.7, Absolute Neuts (auto) 7.6, Absolute Lymphs (auto) 5.52 H, Nucleated RBC % 0, Sodium 145, Potassium 3.9, Chloride 113 H, Carbon Dioxide 22.3, Anion Gap 10, BUN 10, Creatinine 0.70,Estim Creat Clear Calc 81.97, Est GFR (MDRD) Non-Af 100, BUN/Creatinine Ratio 14.2, Glucose 91, Calcium 9.2, Phosphorus 1.6 L, Total Bilirubin 1.49 H, AST 99 H, ALT 115 H, Alkaline Phosphatase 79, Total Protein 7.6, Albumin 4.6, Globulin 3.1, Albumin/Globulin Ratio 1.5 Radiography Diagnostic Testing: Radiology Impression Abdomen/Pelvis CT 08/09/24 18:31 IMPRESSION: 1. No acute intra-abdominal abnormality. 2. Mild hepatic steatosis. 3. Cystic lesions in both ovaries, the largest measuring 4.3 cm. Recommend nonemergent pelvic ultrasound per ACR white paper guidelines. 4. Solid pulmonary nodules measuring up to 4 mm in the right lung, consider CT chest in 12 months if patient is at high risk for malignancy per Fleischner society guidelines. Reading Location: [facility] D/ Instructions Discharge Diet: No restrictions (bland diet, advance as tolerated. ) DC O2, CPAP, BIPAP Needs Home O2 Discharge instructions: No Meaningful Use Info Meaningful Use Meaningful Use Diagnoses (Choose all that apply): None applicable Ischemic Stroke Statin Dosing Therapy Reference: STATIN DOSE THERAPY REFERENCE: * Patients > 75 years receive moderate or high dose statin therapy. * Patients 75 years or YOUNGER should receive HIGH intensity statin dose unless contraindicated. You will be required to document reason for non-treatment if statin daily dose does not meet guidelines. HIGH DOSE STATIN THERAPY DAILY Atorvastatin > than or = to 40 mg Rosuvastatin > than or = to 20 mg Amlodipine + Atorvastatin > than or = to 2.5/40 mg Ezetimibe + Simvastatin 10/80 mg Simvastatin 80mg Discharge Plan Admission Admit Date/Time: 08/09/24 20:07 Primary Reason for Your Visit: gastroenteritis Attending Provider: Austin Mendez Primary Care Provider: Osvaldo Sue Consulting Providers: Len Lafleur Discharge Orders/Prescriptions Prescriptions: Continued atorvastatin 20 mg tablet 20 mg PO QHS loratadine 10 mg tablet 10 mg PO DAILY omeprazole 40 mg capsule,delayed release(DR/EC) 40 mg PO DAILY sumatriptan succinate 6 mg/0.5 mL pen injector 6 mg subcut Q1-4H PRN (Reason: migraine headache) Rx Instructions: do not exceed 2 doses in a 24 hour period propranolol 160 MG capsule,extended release 24 hr 160 mg PO DAILY famotidine 20 MG tablet 20 mg PO BID Qty: 60 0RF naproxen 500 MG tablet 500 mg PO BID Qty: 14 0RF trazodone 50 mg tablet 50 mg PO QHS ondansetron HCl 4 mg tablet 4 mg PO Q6H PRN (Reason: nausea and vomiting) gabapentin 300 mg capsule 300 mg PO TID Referrals / Follow Up: Osvaldo Sue MD [Primary Care Provider] - Charges/Coding Visit Charges Inpatient E&M: 85721 Disch Hosp >30min 08/10/24 1407 <Electronically signed by Austin Mendez DO> Cosigner Signature (if applicable): CC: Dr. Austin Mendez DO; Dr. Osvaldo Sue MD~ Signed [facility] Work Phone: Discharge summary Author Freedom Alexander [facility] Note Date/Time December 29, 2024 1:58pm [facility] Medical Records Department [address] [place] [address] Emergency Department Summary 12/29/24 MR#: [id number] Acct: [id number] Name: NOEMI ALONSO Rep #:[id number] : 1965 59 From: Freedom Alexander MD PCP: Dr. Osvaldo Sue MD Status:REG ER Location: ED HPI History of Present Illness Chief Complaint: Nausea/Vomiting Narrative Narrative: 59-year-old female past medical history of hypertension, recent UTI, previous gastroenteritis presents with nausea and vomiting and decreased p.o. intake. She relates history that she was seen in [place] 1 to 2 weeks ago, and was given something for her nausea and vomiting, and sent home. She fell and broke her right arm and is currently in a sling. Since Tuesday, approximately 5 to 6 days ago she was unable to keep any of her medications down and has had nausea and vomiting but no diarrhea. She feels somewhat feverish as well. States she cannot take her pain medications. She is also unable to take her antibiotics for a urinary tract infection. Her fianc? states that when this happened to herapproximately a year ago she had to be admitted for rehydration. [facility] Medical History Old myocardial infarction Mixed hyperlipidemia GERD (gastroesophageal reflux disease) Essential hypertension Lung nodules Aneurysm of left subclavian artery Chest pain Dehydration Former tobacco use Migraine Hypertension Elevated LFTs Hypokalemia Gastroenteritis No significant past medical history Home Medications ?Medication ?Instructions ?Recorded ?Last Taken ?Type propranolol 160 mg capsule,24 160 mg PO DAILY 05/03/19 Unknown History hr,extended release famotidine 20 mg tablet 20 mg PO BID #60 tabs Unknown Rx naproxen 500 mg tablet 500 mg PO BID #14 tabs 04/15 Unknown Rx atorvastatin 20 mg tablet 20 mg PO QHS 08/19/22 Unknow n History loratadine 10 mg tablet 10 mg PO DAILY 08/19/22 Unkn own History omeprazole 40 mg capsule,delayed 40 mg PO DAILY Unknown History release sumatriptan succinate 6 mg/0.5 mL 6 mg subcut Q1-4H [place] N migraine 08/19/22 Unknown History subcutaneous pen injector headache gabapentin 300 mg capsule 300 mg PO TID 08/09/24 Unkno wn History ondansetron HCl 4 mg tablet 4 mg PO Q6H PRN nausea and vomiting 08/09/24 Unknown History trazodone 50 mg tablet 50 mg PO QHS 08/09/24 Unknow n History promethazine 25 mg tablet 25 mg PO Q6H PRN nausea and 12/29/24 Unknown Rx vomiting #15 tabs Allergy/AdvReac Type Severity Reaction Status Date / Time No Known Allergies Allergy Verified 12/29/24 10:58 Surgical History History of left heart catheterization (LHC) (~04/29/14) Social History Smoking Status: Former smoker ROS ROS ED ROS Narrative Review of systems positive for nausea and vomiting, 4-5 episodes in the last 24 hours. Unable to eat or drink for the last 5 days. Subjective fever. Denies diarrhea. Positive diffuse abdominal pain. No exacerbating or alleviating factors. Pain in right arm from fracture. EXAM Physical Exam Narrative Exam Narrative: Afebrile. Vital signs noted. Nontoxic-appearing. Cardiovascular examination reveals mild bradycardia. Lungs are clear to auscultation bilaterally. Abdomenis soft with diffuse tenderness to palpation without guarding or rebound. Positive bowel sounds. Neurological examination is nonfocal, nonlateralizing. Musculoskeletal examination shows right arm in sling. Const Vital Signs: 12/29/24 10:58 12/29/24 12:57 12/29/24 13:54 Temperature 98.6 F 98.6 F Temperature Source Temporal Pulse Rate 41 L 96 96 Respiratory Rate 18 18 Blood Pressure 147/91 H 152/90 H 152/90 H Blood Pressure Mean 109 110 110 Pulse Ox 99 98 98 Oxygen Delivery Method Room Air Room Air MDM MDM MDM Narrative Medical decision making narrative: Differential diagnosis includes but not limited to gastritis versus gastroenteritis versus pancreatitis versus bowel obstruction versus partial small bowel obstruction versus colitis. Comprehensive workup was pursued. Patient not tachycardic. As she has been unable to take her medication/analgesic for her right arm fracture, she was administered morphine as well as ondansetron. Comprehensive workup was pursued. She has had prior abdominal surgeries CT of the abdomen and pelvis with IV contrast will be obtained to help rule out partial's versus complete obstruction of the bowel. I reviewed her laboratory work and she has slight leukocytosis of 12.1, comparedto the prior labs, has been higher and more frequent. Hemoglobin 14.8, hematocrit 41.8. Electrolyte panel shows no evidence of dehydration. She has normal sodium of 139 and potassium normal at 4.5 with chloride 99. Glucose is elevated at 160. Lipase normal at 44. Hence I do not think she has a pancreatitis. Urinalysis shows contaminated specimen with 10-25 squamous epithelial cells. I do feel that this is probably a contaminated specimen and she has already been on antibiotics so I do not feel that she requires more. Also of significance is her CT radiology report which shows no acute process. The bowel is not thickened or obstructed. She has fatty liver infiltration. Upon repeat examination, she is resting comfortably on the cot at approximately 1350. I feel she can be discharged to follow-up. She states she has Zofran at home which has been ineffective. I wrote her prescription for Phenergan 25 mg as she declined suppositories. At this point in time, she was told to give her stomach a rest tonight, and start a clear liquid diet tomorrow and advance as tolerated. Return instructions to the emergency department were reviewed. Disposition is discharged home in stable condition. History & Record Review Discussion w/independent historian: Patient and Significant other Additional record(s) reviewed:: Prior labs Lab Data Attestation: I reviewed the patient's lab results. Labs: Laboratory Results - last 24 hr 12/29/24 12/29/24 11:23 11:50 WBC 12.1 H RBC 4.64 Hgb 14.8 Hct 41.8 MCV 90.1 MCH 31.9 MCHC 35.4 RDW Std Deviation 43.6 RDW Coeff of Kenji 13.4 Plt Count 389 MPV 9.8 Immature Gran % (Auto) 0.300 Neut % (Auto) 67.7 Lymph % (Auto) 23.5 Warren % (Auto) 7.2 Eos % (Auto) 0.8 Baso % (Auto) 0.5 Absolute Neuts (auto) 8.2 H Absolute Lymphs (auto) 2.85 Nucleated RBC % 0 Sodium 139 Potassium 4.5 Chloride 99 Carbon Dioxide 23.2 Anion Gap 17 H BUN 12 Creatinine 0.69 L Estim Creat Clear Calc 81.88 Est GFR (MDRD) Non-Af 101 BUN/Creatinine Ratio 17.0 Glucose 160 H Calcium 9.7 Total Bilirubin 2.15 H AST 102 H ALT 153 H Alkaline Phosphatase 112 H Total Protein 8.1 Albumin 4.3 Globulin 3.8 Albumin/Globulin Ratio 1.1 Lipase 44 Urine Color Yellow Urine Clarity Cloudy Urine pH 6.5 Ur Specific [place] 1.010 Urine Protein 30 H Urine Glucose (UA) Normal Urine Ketones 15 H Urine Occult Blood 10 H Urine Nitrite Negative Urine Bilirubin 1 H Urine Urobilinogen 8 H Ur Leukocyte Esterase 100 H Urine RBC 0 SEEN Urine WBC 5-10 SEEN Ur Squamous Epith Cells 10-25 SEEN Urine Bacteria 2+ Urine Mucus 0 SEEN Radiography Diagnostic Testing: Clinical Impression(s) from Imaging Studies Abdomen/Pelvis CT 12/29/24 11:12 IMPRESSION: 1. Serpiginous vessels surrounding the uterus consistent with pelvic congestion. 2. Bilateral ovarian cysts, not significantly changed. 3. The appearance of the lung bases is unchanged. 4. Fatty liver infiltration. Reading Location: [id number] Discharge Plan Triage Chief Complaint: Nausea/Vomiting ED Provider: Freedom Alexander Dx/Rx/DC Orders Clinical Impression: Nausea and vomiting, Abdominal pain Instructions: ED Abdominal Pain Unkn Cause Fem, ED Diet Vomiting Diarrhea, ED Vomiting (Adult) Prescriptions: New promethazine 25 mg tablet 25 mg PO Q6H PRN (Reason: nausea and vomiting) Qty: 15 0RF No Action atorvastatin 20 mg tablet 20 mg PO QHS loratadine 10 mg tablet 10 mg PO DAILY omeprazole 40 mg capsule,delayed release(DR/EC) 40 mg PO DAILY sumatriptan succinate 6 mg/0.5 mL pen injector 6 mg subcut Q1-4H PRN (Reason: migraine headache) Rx Instructions: do not exceed 2 doses in a 24 hour period propranolol 160 MG capsule,extended release 24 hr 160 mg PO DAILY famotidine 20 MG tablet 20 mg PO BID Qty: 60 0RF naproxen 500 MG tablet 500 mg PO BID Qty: 14 0RF trazodone 50 mg tablet 50 mg PO QHS ondansetron HCl 4 mg tablet 4 mg PO Q6H PRN (Reason: nausea and vomiting) gabapentin 300 mg capsule 300 mg PO TID Primary Care Provider: Osvaldo Sue Referrals: Osvaldo Sue MD [Primary Care Provider, [facility]] - 3-5 Days if not improving Activity Restrictions/Additional Instructions: Medication as directed. Take Phenergan instead of Zofran for nausea and vomiting if Zofran is ineffective. Give your stomach a rest today and start a clear liquid diet, advance as tolerated. Return with new or worsening symptoms. Print Language: Cypriot Disposition Disposition: Home, Self Care What to do if you have Problems For any increased pain, shortness of breath, bleeding, nausea or vomiting, chestpain, or any unexpected problems, contact your Primary Care Provider. Call [facility] ([phone]) or report to the closest Emergency Room. Call 911 if necessary. 12/29/24 1358 <Electronically signed by Freedom Alexander MD> Cosigner Signature (if applicable): CC: Dr. Osvaldo Sue MD ~ Signed [facility] Work Phone: Evaluation note* Diagnosis Hair loss- Primary Alopecia, unspecified Lung nodules Other nonspecific abnormal finding of lung field Fatty liver Other chronic nonalcoholic liver disease Hypercalcemia Essential hypertension Unspecified essential hypertension Elevated hemoglobin A1c Other abnormal blood chemistry GERD without esophagitis Esophageal reflux Anemia, unspecified type Generalized anxiety disorder Smoker Tobacco use disorder [facility] Pelvic pain Ovarian cyst, bilateral Other and unspecified ovarian cyst [facility] Diagnosis Levator spasm- Primary Abnormal involuntary movements Cystocele, midline Mixed stress and urge urinary incontinence Mixed incontinence urge and stress (male)(female) Bilateral ovarian cysts Other and unspecified ovarian cyst Acute cystitis without hematuria Acute cystitis Tinea cruris Dermatophytosis of groin and perianal area [facility] Diagnosis Cysts of both ovaries- Primary Other and unspecified ovarian cyst [facility] Diagnosis Ovarian cyst, bilateral- Primary Other and unspecified ovarian cyst [facility] Diagnosis Vaginal pain- Primary Unspecified symptom associated with female genital organs [facility] Diagnosis Levator spasm- Primary Abnormal involuntary movements Cystocele, midline Mixed stress and urge urinary incontinence Mixed incontinence urge and stress (male)(female) [facility] Diagnosis Viral illness- Primary Unspecified viral infection, in conditions classified elsewhere and of unspecified site Cough, unspecified type Mold exposure Contact with and (suspected) exposure to mold Suspected COVID-19 virus infection Smoker Tobacco use disorder [facility]* Diagnosis Well adult exam- Primary Routine general medical examination at a health care facility Essential hypertension Unspecified essential hypertension Elevated hemoglobin A1c Other abnormal blood chemistry GERD without esophagitis Esophageal reflux Tension headache Migraine without status migrainosus, not intractable, unspecified migraine type Generalized anxiety disorder Situational depression Adjustment disorder with depressed mood History of SD (myocardial infarction) Old myocardial infarction Fatty liver Other chronic nonalcoholic liver disease Anemia, unspecified type Midline thoracic back pain, unspecified chronicity Lumbar pain Lumbago Medication management Encounter for long-term (current) use of other medications Screening for colon cancer Special screening for malignant neoplasms, colon Smoker Tobacco use disorder Bronchitis Bronchitis, not specified as acute or chronic documented [facility] this [facility] Diagnosis Acute pain of left shoulder- Primary [facility] Diagnosis Situational depression- Primary Adjustment disorder with depressed mood Generalized anxiety disorder [facility] Diagnosis Chest pain, unspecified type- Primary Aneurysm of left subclavian artery (HCC) Lung nodules Other nonspecific abnormal finding of lung field Essential hypertension Unspecified essential hypertension Tension headache Migraine without status migrainosus, not intractable, unspecified migraine type Former smoker Personal history of tobacco use, presenting hazards to health GERD without esophagitis Esophageal reflux [facility] Diagnosis Encounter for screening mammogram for breast cancer [facility] Diagnosis Encounter for screening mammogram for breast cancer [facility] Diagnosis Acute pain of left shoulder [facility] Diagnosis Cough, unspecified type Mold exposure Contact with and (suspected) exposure to mold [facility] this [facility] Diagnosis Right forearm pain- Primary Pain in limb Right elbow pain Pain in joint, upper arm Right elbow pain Pain in joint, upper arm Right forearm pain Pain in limb [facility] Diagnosis Right elbow pain Pain in joint, upper arm Right forearm pain Pain in limb [facility] Diagnosis Hypertensive urgency- Primary Unspecified essential hypertension Essential hypertension Unspecified essential hypertension Aneurysm of left subclavian artery (HCC) Elevated hemoglobin A1c Other abnormal blood chemistry Tension headache Migraine without status migrainosus, not intractable, unspecified migraine type Anemia, unspecified type [facility] Diagnosis Urinary tract infection without hematuria, site unspecified- Primary documented in this [facility]* Diagnosis Essential hypertension- Primary Unspecified essential hypertension Mixed stress and urge urinary incontinence Mixed incontinence urge and stress (male)(female) Elevated hemoglobin A1c Other abnormal blood chemistry Elevated liver enzymes Other nonspecific abnormal serum enzyme levels Situational depression Adjustment disorder with depressed mood Generalized anxiety disorder Tension headache Bacterial sinusitis Unspecified sinusitis (chronic) Encounter for immunization Need for other specified prophylactic vaccination against single bacterial disease [facility] Diagnosis Elevated liver enzymes- Primary Other nonspecific abnormal serum enzyme levels Metabolic dysfunction-associated steatohepatitis (MASH) documented [facility] Diagnosis Laceration of ear canal, initial encounter- Primary [facility] Diagnosis Essential hypertension- Primary Unspecified essential hypertension Chronic daily headache Headache Metabolic dysfunction-associated steatohepatitis (MASH) Situational depression Adjustment disorder with depressed mood Generalized anxiety disorder documented [facility] this [facility]* Diagnosis Skin lesion- Primary Unspecified disorder of skin and subcutaneous tissue [facility] Diagnosis Cervicogenic headache- Primary Headache Chronic daily headache Headache Spinal stenosis of cervical region Spinal stenosis in cervical region Gait abnormality Abnormality of gait documented in this [facility]* Diagnosis Encounter for screening mammogram for breast cancer [facility] Diagnosis Ovarian cyst, bilateral Other and unspecified ovarian cyst documented [facility] this [facility] Diagnosis Ovarian cyst, bilateral- Primary Other and unspecified ovarian cyst Thickened endometrium Nonspecific (abnormal) findings on radiological and other examination of genitourinary organs documented in this encounter [facility] note* Diagnosis Encounter for gynecological examination (general) (routine) without abnormal findings- Primary Encounter for screening for human papillomavirus (HPV) Special screening examination for human papillomavirus (HPV) Pap smear for cervical cancer screening Screening for malignant neoplasm of the cervix Encounter for screening mammogram for breast cancer Cysts of both ovaries Other and unspecified ovarian cyst documented in this encounter [facility] note* Diagnosis Acute bilateral low back pain with bilateral sciatica- Primary Radiculopathy of lumbar region Thoracic or lumbosacral neuritis or radiculitis, unspecified Chronic midline low back pain with bilateral sciatica Urinary incontinence, unspecified type Plantar fasciitis Plantar fascial fibromatosis documented in this encounter [facility] note* Diagnosis Acute bilateral low back pain with bilateral sciatica Radiculopathy of lumbar region Thoracic or lumbosacral neuritis or radiculitis, unspecified Chronic midline low back pain with bilateral sciatica documented in this encounter [facility] noteNo assessment information availableWSumma Health [facility] Work Phone: Hospital Discharge instructionsAdditional Instructions Medication as directed. Take Phenergan instead of Zofran for nausea and vomiting if Zofran is ineffective. Give your stomach a rest today and start a clear liquid diet, advance as tolerated. Return with new or worsening symptoms.[facility] Work Phone: Reason for referral (narrative)* Diagnostic Procedure Only (Routine) - Pending Review Specialty Diagnoses / Procedures Referred By Poncho white Referred To Contact US IMAGING Diagnoses Ovarian cyst, bilateral Procedures US FEMALE PELVIS TRANSVAG US TRANSVAGINAL Harriet Wanger APRN.CNM [address] [place] [address] Us Imaging Referral ID Status Reason Start Date Expiration Date Visits Requested Visits Authorized [id number] Pending Review Auto-Generat ed Referral 11/12/2022 12/12/2022 [address] [facility] for referral (narrative)* Diagnostic Procedure Only (Urgent) - Closed Specialty Diagnoses / Procedures Referred By Poncho white Referred To Contact XR IMAGING Diagnoses Acute pain of left shoulder Procedures XR SHOULDER GENERAL 3V OR MORE AP/TRUE AP/OTHER LEFT RADEX SHOULDER COMPLETE MINIMUM 2 VIEWS Darlyn Martinez APRN.CNP [address] [place] [address] Xr Imaging Referral ID Status Reason Start Date Expiration Date V isits Requested Visits Authorized [id number] Closed Auto-Generate d Referral 06/08/2022 07/08/2023 1 1 [facility] for referral (narrative)* Diagnostic Procedure Only (Routine) - Pending Review Specialty Diagnoses / Procedures Referred By Contac t Referred To Contact BR IMAGING Diagnoses Encounter for screening mammogram for breast cancer Procedures ALIA SCREENING SCREENING MAMMOGRAPHY BI 2-VIEW BREAST INC CAD Osvaldo Sue MD [address] [place] [address] Br Imaging [address] [place] [address] Referral ID Status Reason Start Date Expiration Date Visits Requested Visits Authorized [id number] Pending Review Auto-Generat ed Referral 07/21/2022 08/20/2023 [address] [facility] for referral (narrative)* Diagnostic Procedure Only (Routine) - Pending Review Specialty Diagnoses / Procedures Referred By Contac t Referred To Contact BR IMAGING Diagnoses Encounter for screening mammogram for breast cancer Procedures ALIA SCREENING SCREENING MAMMOGRAPHY BI 2-VIEW BREAST INC CAD Osvaldo Sue MD [address] [place] [address] [facility] Imaging [address] [place] [address] Referral ID Status Reason Start Date Expiration Date Visits Requested Visits Authorized [id number] Pending Review Auto-Generat ed Referral 07/06/2023 08/04/2024 1 1 [facility] for referral (narrative)* Diagnostic Procedure Only (Urgent) - Closed Specialty Diagnoses / Procedures Referred By Contac t Referred To Contact XR IMAGING Diagnoses Acute pain of left shoulder Procedures XR SHOULDER GENERAL 3V OR MORE AP/TRUE AP/OTHER LEFT RADEX SHOULDER COMPLETE MINIMUM 2 VIEWS Darlyn Martinez APRN.RN PSYCH [address] [place] [address] [place] [address] Referral ID Status Reason Start Date Expiration Date V isits Requested Visits Authorized [id number] Closed Auto-Generate d Referral 06/08/2022 07/08/2023 [address] [facility] for referral (narrative)* Diagnostic Procedure Only (Urgent) - Closed Specialty Diagnoses / Procedures Referred By Contac t Referred To Contact XR IMAGING Diagnoses Right forearm pain Procedures XR FOREARM GENERAL 2V AP/LAT RIGHT RADEX FOREARM 2 VIEWS Mel Sullivan APRN.RN PSYCH [address] [place] [address] [place] [address] Referral ID Status Reason Start Date Expiration Date V isits Requested Visits Authorized [id number] Closed Auto-Generate d Referral 01/19/2024 02/17/2025 1 1 * Diagnostic Procedure Only (Urgent) - Closed Specialty Diagnoses / Procedures Referred By Contac t Referred To Contact XR IMAGING Diagnoses Right elbow pain Procedures XR ELBOW SPECIAL VIEWS AP/LAT/OTHER RIGHT RADEX ELBOW COMPLETE MINIMUM 3 VIEWS Mel Sullivan APRN.RN PSYCH [address] [place] [address] [place] [address] Referral ID Status Reason Start Date Expiration Date V isits Requested Visits Authorized [id number] Closed Auto-Generate d Referral 01/19/2024 02/17/2025 [address] [facility] for referral (narrative)* Diagnostic Procedure Only (Urgent) - Closed Specialty Diagnoses / Procedures Referred By Contac t Referred To Contact XR IMAGING Diagnoses Right forearm pain Procedures XR FOREARM GENERAL 2V AP/LAT RIGHT RADEX FOREARM 2 VIEWS Mel Sullivan APRN.RN PSYCH [address] [place] [address] [place] [address] Referral ID Status Reason Start Date Expiration Date V isits Requested Visits Authorized [id number] Closed Auto-Generate d Referral 01/19/2024 02/17/2025 1 1 * Diagnostic Procedure Only (Urgent) - Closed Specialty Diagnoses / Procedures Referred By Contac t Referred To Contact XR IMAGING Diagnoses Right elbow pain Procedures XR ELBOW SPECIAL VIEWS AP/LAT/OTHER RIGHT RADEX ELBOW COMPLETE MINIMUM 3 VIEWS Mel Sullivan APRN.CNP [address] [place] [address] [place] [address] Referral ID Status Reason Start Date Expiration Date V isits Requested Visits Authorized [id number] Closed Auto-Generate d Referral 01/19/2024 02/17/2025 [address] [facility] for referral (narrative)* Outpatient Procedure (Routine) - New Request Specialty Diagnoses / Procedures Referred By Contac t Referred To Contact [facility] Diagnoses Aneurysm of left subclavian artery (HCC) Procedures US CAROTID ARTERIES AMBER VAS LAB DUPLEX SCAN EXTRACRANIAL ART COMPL BI STUDY Cheryl Sahu PA-C [address] [place] [address] [facility] [address] [place] [address] Referral ID Status Reason Start Date Expiration Date Visits Requested Visits Authorized [id number] New Request Auto-Generat ed Referral 02/28/2025 1 1 * Outpatient Procedure (Routine) - New Request Specialty Diagnoses / Procedures Referred By Contac t Referred To [facility] Diagnoses Hypertensive emergency Procedures ECG COMPLETE ECG ROUTINE ECG W/LEAST 12 LDS W/I&R Cheryl Sahu PA-C [address] [place] [address] [facility] [address] [place] [address] Referral ID Status Reason Start Date Expiration Date Visits Requested Visits Authorized [id number] New Request Auto-Generat ed Referral 02/28/2025 [address] [facility] for referral (narrative)No reason for referral information availableWSumma Health [facility] Work Phone: [facility] Narrative* Diagnostic Procedure Only (Urgent) - Closed Specialty Diagnoses / Procedures Referred By Contac t Referred To Contact XR IMAGING Diagnoses Acute pain of left shoulder Procedures XR SHOULDER GENERAL 3V OR MORE AP/TRUE AP/OTHER LEFT RADEX SHOULDER COMPLETE MINIMUM 2 VIEWS Darlyn Martinez APRN.RN PSYCH [address] [place] [address] [place] [address] Referral ID Status Reason Start Date Expiration Date V isits Requested Visits Authorized [id number] Closed Auto-Generate d Referral 06/08/2022 07/08/2023 [address] [facility] for visit Narrative* Diagnostic Procedure Only (Urgent) - Closed Specialty Diagnoses / Procedures Referred By Contac t Referred To Contact XR IMAGING Diagnoses Right forearm pain Procedures XR FOREARM GENERAL 2V AP/LAT RIGHT RADEX FOREARM 2 VIEWS Mel Sullivan, JAYLEN.RN PSYCH [address] [place] [address] X[facility] Referral ID Status Reason Start Date Expiration Date V isits Requested Visits Authorized [id number] Closed Auto-Generate d Referral 01/19/2024 02/17/2025 [address] [facility] for visit Narrative* Diagnostic Procedure Only (Routine) - Closed Specialty Diagnoses / Procedures Referred By Contac t Referred To Contact XR IMAGING Diagnoses Acute bilateral low back pain with bilateral sciatica Radiculopathy of lumbar region Chronic midline low back pain with bilateral sciatica Procedures XR LUMBAR GENERAL 3V AP/LAT/L5-S1 RADEX SPINE LUMBOSACRAL 2/3 VIEWS Cheryl Sahu PA-C [address] [place] [address] Phone: tel: fax: [place] [address] Referral ID Status Reason Start Date Expiration Date V isits Requested Visits Authorized [id number] Closed Auto-Generate d Referral 10/24/2024 11/23/2025 1 1 [facility] Reason for Referral Specialty Diagnoses / Procedures Referred By Contac t Referred To Contact CT IMAGING Diagnoses Lung nodules Procedures CT CHEST WO IVCON DIAGNOSTIC COMPUTED TOMOGRAPHY THORAX W/O CNTRST Cheryl Sahu PA-C [address] [place] [address] Ct Imaging Referral ID Status Reason Start Date Expiration Date Visits Requested Visits Authorized [id number] Additional Clinical Info Needed Auto-Generat ed Referral 08/17/2021 09/16/2022 1 1 Specialty Diagnoses / Procedures Referred By Contac t Referred To Contact [facility] Diagnoses Levator spasm Cystocele, midline Mixed stress and urge urinary incontinence Procedures CONSULT TO PHYSICAL THERAPY PHYSICAL THERAPY EVALUATION HIGH COMPLEX 45 MINS Caitlyn Fortune MD [address] [address] [facility] [place] [id number] Referral ID Status Reason Start Date Expiration Date Visits Requested Visits Authorized [id number] Pending Review Auto-Generat ed Referral 10/06/2021 10/06/2022 1 1 Specialty Diagnoses / Procedures Referred By Contac t Referred To Contact [facility] Diagnoses Levator spasm Cystocele, midline Mixed stress and urge urinary incontinence Procedures PT REHAB FOLLOW UP ORDER THERAPEUTIC EXERCISES RE, EA 15 MIN. Umm Medina, PATRICK [address] [place] [address] [facility] [address] [address] Referral ID Status Reason Start Date Expiration Date Visits Requested Visits Authorized [id number] Pending Review PCP Requested Referral Auto-Generate d Referral 11/17/2021 02/15/2022 1 1 Specialty Diagnoses / Procedures Referred By Contac t Referred To Contact Cheryl Sahu PA-C [address] [place] [address] Referral ID Status Reason Start Date Expiration Date Visits Re quested Visits Authorized [id number] Closed 1 1 Specialty Diagnoses / Procedures Referred By Contac t Referred To Contact [facility] Diagnoses Midline thoracic back pain, unspecified chronicity Lumbar pain Procedures CONSULT TO PHYSICAL THERAPY PHYSICAL THERAPY EVALUATION HIGH COMPLEX 45 MINS Osvaldo Sue MD [address] [place] [address] [facility] [address] [place] [address] Referral ID Status Reason Start Date Expiration Date Visits Requested Visits Authorized [id number] Pending Review Auto-Generat ed Referral 06/04/2022 06/04/2023 1 1 Specialty Diagnoses / Procedures Referred By Contac t Referred To Contact XR IMAGING Diagnoses Lumbar pain Procedures XR LUMBAR PARS DEFECT 4V AP/LAT/BOTH OBL RADEX SPINE LUMBOSACRAL MINIMUM 4 VIEWS Osvaldo Sue MD [address] [place] [address] Xr Imaging Referral ID Status Reason Start Date Expiration Date Visits Requested Visits Authorized [id number] Pending Review Auto-Generat ed Referral 06/04/2022 07/04/2023 1 1 Specialty Diagnoses / Procedures Referred By Contac t Referred To Contact XR IMAGING Diagnoses Midline thoracic back pain, unspecified chronicity Procedures XR THORACIC GENERAL 3V AP/LAT/SWIMMERS RADEX SPINE THORACIC 3 VIEWS Osvaldo Sue MD [address] [place] [address] Xr Imaging Referral ID Status Reason Start Date Expiration Date Visits Requested Visits Authorized [id number] Pending Review Auto-Generat ed Referral 06/04/2022 07/04/2023 1 1 Specialty Diagnoses / Procedures Referred By Contac t Referred To Contact Cardiology Diagnoses Chest pain, unspecified type Aneurysm of left subclavian artery (HCC) Procedures CONSULT TO CARDIOLOGY OFFICE/OUTPATIENT [facility] MDM 60-74 MINUTES Cheryl Sahu PA-C [address] [place] [address] Referral ID Status Reason Start Date Expiration Date Visits Requested Visits Authorized [id number] Authorized PCP Requested Referral 07/23/2022 07/23/2023 1 1 Specialty Diagnoses / Procedures Referred By Contac t Referred To Contact Neurology Diagnoses Chronic daily headache Procedures CONSULT TO NEUROLOGY OFFICE/OUTPATIENT [facility] MDM 60 MINUTES Cheryl Sahu PA-C [address] [place] [address] Referral ID Status Reason Start Date Expiration Date Visits Requested Visits Authorized [id number] Authorized PCP Requested Referral 04/11/2024 04/11/2025 1 1 Specialty Diagnoses / Procedures Referred By Contac t Referred To Contact Dermatology Diagnoses Skin lesion Procedures CONSULT TO DERMATOLOGY Cheryl Sahu PA-C [address] [place] [address] Referral ID Status Reason Start Date Expiration Date Visits Requested Visits Authorized [id number] Authorized PCP Requested Referral 04/23/2024 04/23/2025 1 1 Specialty Diagnoses / Procedures Referred By Contac t Referred To Contact MR IMAGING Diagnoses Spinal stenosis of cervical region Gait abnormality Procedures MRI CERVICAL SPINE WO IVCON MRI SPINAL CANAL CERVICAL W/O CONTRAST MATRL La Jacques PA-C [address] [place] [address] [place] [address] Referral ID Status Reason Start Date Expiration Date Visits Requested Visits Authorized [id number] Pending Review Auto-Generat ed Referral 05/02/2024 06/01/2025 1 1 Specialty Diagnoses / Procedures Referred By Contac t Referred To Contact [facility] Diagnoses Chronic daily headache Cervicogenic headache Procedures CONSULT TO PHYSICAL THERAPY PHYSICAL THERAPY EVALUATION HIGH COMPLEX 45 MINS La Jacques PA-C [address] [place] [address] [facility] [address] [place] [address] Referral ID Status Reason Start Date Expiration Date Visits Requested Visits Authorized [id number] Pending Review Auto-Generat ed Referral 05/02/2024 05/02/2025 1 1 Specialty Diagnoses / Procedures Referred By Poncho white Referred To Contact MR IMAGING Diagnoses Chronic daily headache Procedures MRI BRAIN WO IVCON MRI BRAIN BRAIN STEM W/O CONTRAST MATERIAL La Jacques PA-C [address] [facility] [place] [address] [place] [address] Referral ID Status Reason Start Date Expiration Date Visits Requested Visits Authorized [id number] Pending Review Auto-Generat ed Referral 05/02/2024 06/01/2025 1 1 Summary Purpose Family History No Family History Records Found Relationship Condition Age at Onset Recorded Date/T andrew Unknown Family History?- Unknown April 5:42pm Family History?- Unknown April 5:42pm Advance Directives No Advanced Directives Records Found Advance Directive Response Recorded Date/ Time Do you have a Healthcare Power of Counter Sales Person? No August 09, 2024 5:19pm Advance Directive Response Recorded Date/ Time Do you have a Healthcare Power of Counter Sales Person? No August 09, 2024 8:42pm Advance Directive Response Recorded Date/ Time Do you have a Healthcare Power of Counter Sales Person? No December 29, 2024 11:03am Chief Complaint and Reason for Visit Chief Complaint Admit Date GASTROENTERITIS, DEHYDRATION, HYPOKALEMI A August 09, 2024 7:45pm Reason for Visit Admit Date Acute cystitis without hematuria August 7:45pm Acute hypokalemia August 09, 2024 7:45pm Gastroenteritis August 09, 2024 7:45pm Migraine August 09, 2024 7:45pm Ovarian cyst August 09, 2024 7:45pm Pulmonary nodules/lesions, multiple August 09, 2024 7:45pm Tobacco abuse, in remission August 09 7:45pm Chief Complaint Admit Date VGE, N/V/D, HYPOKALEMIA, UTI & MIGRAINE RICK August 09, 2024 8:07pm VGE, N/V/D, HYPOKALEMIA, UTI & MIGRAINE RICK August 10, 2024 7:21am Reason for Visit Admit Date Acute cystitis without hematuria August 8:07pm Acute hypokalemia August 09, 2024 8:07pm Gastroenteritis August 09, 2024 8:07pm Migraine August 09, 2024 8:07pm Ovarian cyst August 09, 2024 8:07pm Pulmonary nodules/lesions, multiple August 09, 2024 8:07pm Tobacco abuse, in remission August 09 8:07pm Chief Complaint Admit Date n/v December 29, 2024 10:57am Additional Source Comments Source Comments (unrecognize d section and content) In the event this informatio n is protected by the Federal Confidentiality of Alcohol and Drug Abuse Patient Records regulations: The Federal rules restrict any use of the information to criminally investigate or prosecute any alcohol or drug abuse patient.[facility] the event this information is protected by the Federal Confidentiality of Alcohol and Drug Abuse Patient Records regulations: The Federal rules restrict any use of the information to criminally investigate or prosecute any alcohol or drug abuse patient.[facility] the event this information is protected by the Federal Confidentiality of Alcohol and Drug Abuse Patient Records regulations: The Federal rules restrict any use of the information to criminally investigate or prosecute any alcohol or drug abuse patient.[facility] Center[facility] the event this information is protected by the Federal Confidentiality of Alcohol and Drug Abuse Patient Records regulations: The Federal rules restrict any use of the information to criminally investigate or prosecute any alcohol or drug abuse patient.[facility] the event this information is protected by the Federal Confidentiality of Alcohol and Drug Abuse Patient Records regulations: The Federal rules restrict any use of the information to criminally investigate or prosecute any alcohol or drug abuse patient.[facility] Center[facility] the event this information is protected by the Federal Confidentiality of Alcohol and Drug Abuse Patient Records regulations: The Federal rules restrict any use of the information to criminally investigate or prosecute any alcohol or drug abuse patient.[facility] Center[facility] the event this information is protected by the Federal Confidentiality of Alcohol and Drug Abuse Patient Records regulations: The Federal rules restrict any use of the information to criminally investigate or prosecute any alcohol or drug abuse patient.[facility] Center[facility] the event this information is protected by the Federal Confidentiality of Alcohol and Drug Abuse Patient Records regulations: The Federal rules restrict any use of the information to criminally investigate or prosecute any alcohol or drug abuse patient.[facility] Center[facility] the event this information is protected by the Federal Confidentiality of Alcohol and Drug Abuse Patient Records regulations: The Federal rules restrict any use of the information to criminally investigate or prosecute any alcohol or drug abuse patient.[facility] Center[facility] the event this information is protected by the Federal Confidentiality of Alcohol and Drug Abuse Patient Records regulations: The Federal rules restrict any use of the information to criminally investigate or prosecute any alcohol or drug abuse patient.[facility] Center[facility] the event this information is protected by the Federal Confidentiality of Alcohol and Drug Abuse Patient Records regulations: The Federal rules restrict any use of the information to criminally investigate or prosecute any alcohol or drug abuse patient.[facility] Center[facility] the event this information is protected by the Federal Confidentiality of Alcohol and Drug Abuse Patient Records regulations: The Federal rules restrict any use of the information to criminally investigate or prosecute any alcohol or drug abuse patient.[facility] Center[facility] the event this information is protected by the Federal Confidentiality of Alcohol and Drug Abuse Patient Records regulations: The Federal rules restrict any use of the information to criminally investigate or prosecute any alcohol or drug abuse patient.[facility] Center[facility] the event this information is protected by the Federal Confidentiality of Alcohol and Drug Abuse Patient Records regulations: The Federal rules restrict any use of the information to criminally investigate or prosecute any alcohol or drug abuse patient.[facility] CenterIn the event this information is protected by the Federal Confidentiality of Alcohol and Drug Abuse Patient Records regulations: The Federal rules restrict any use of the information to criminally investigate or prosecute any alcohol or drug abuse patient.[facility] CenterIn the event this information is protected by the Federal Confidentiality of Alcohol and Drug Abuse Patient Records regulations: The Federal rules restrict any use of the information to criminally investigate or prosecute any alcohol or drug abuse patient.[facility] CenterIn the event this information is protected by the Federal Confidentiality of Alcohol and Drug Abuse Patient Records regulations: The Federal rules restrict any use of the information to criminally investigate or prosecute any alcohol or drug abuse patient.[facility] CenterIn the event this information is protected by the Federal Confidentiality of Alcohol and Drug Abuse Patient Records regulations: The Federal rules restrict any use of the information to criminally investigate or prosecute any alcohol or drug abuse patient.[facility] CenterIn the event this information is protected by the Federal Confidentiality of Alcohol and Drug Abuse Patient Records regulations: The Federal rules restrict any use of the information to criminally investigate or prosecute any alcohol or drug abuse patient.[facility] CenterIn the event this information is protected by the Federal Confidentiality of Alcohol and Drug Abuse Patient Records regulations: The Federal rules restrict any use of the information to criminally investigate or prosecute any alcohol or drug abuse patient.[facility] CenterIn the event this information is protected by the Federal Confidentiality of Alcohol and Drug Abuse Patient Records regulations: The Federal rules restrict any use of the information to criminally investigate or prosecute any alcohol or drug abuse patient.[facility] CenterIn the event this information is protected by the Federal Confidentiality of Alcohol and Drug Abuse Patient Records regulations: The Federal rules restrict any use of the information to criminally investigate or prosecute any alcohol or drug abuse patient.[facility] CenterIn the event this information is protected by the Federal Confidentiality of Alcohol and Drug Abuse Patient Records regulations: The Federal rules restrict any use of the information to criminally investigate or prosecute any alcohol or drug abuse patient.[facility] CenterIn the event this information is protected by the Federal Confidentiality of Alcohol and Drug Abuse Patient Records regulations: The Federal rules restrict any use of the information to criminally investigate or prosecute any alcohol or drug abuse patient.[facility] CenterIn the event this information is protected by the Federal Confidentiality of Alcohol and Drug Abuse Patient Records regulations: The Federal rules restrict any use of the information to criminally investigate or prosecute any alcohol or drug abuse patient.[facility] CenterIn the event this information is protected by the Federal Confidentiality of Alcohol and Drug Abuse Patient Records regulations: The Federal rules restrict any use of the information to criminally investigate or prosecute any alcohol or drug abuse patient.[facility] CenterIn the event this information is protected by the Federal Confidentiality of Alcohol and Drug Abuse Patient Records regulations: The Federal rules restrict any use of the information to criminally investigate or prosecute any alcohol or drug abuse patient.[facility] CenterIn the event this information is protected by the Federal Confidentiality of Alcohol and Drug Abuse Patient Records regulations: The Federal rules restrict any use of the information to criminally investigate or prosecute any alcohol or drug abuse patient.[facility] CenterIn the event this information is protected by the Federal Confidentiality of Alcohol and Drug Abuse Patient Records regulations: The Federal rules restrict any use of the information to criminally investigate or prosecute any alcohol or drug abuse patient.[facility] CenterIn the event this information is protected by the Federal Confidentiality of Alcohol and Drug Abuse Patient Records regulations: The Federal rules restrict any use of the information to criminally investigate or prosecute any alcohol or drug abuse patient.[facility] CenterIn the event this information is protected by the Federal Confidentiality of Alcohol and Drug Abuse Patient Records regulations: The Federal rules restrict any use of the information to criminally investigate or prosecute any alcohol or drug abuse patient.[facility] the event this information is protected by the Federal Confidentiality of Alcohol and Drug Abuse Patient Records regulations: The Federal rules restrict any use of the information to criminally investigate or prosecute any alcohol or drug abuse patient.[facility] CenterIn the event this information is protected by the Federal Confidentiality of Alcohol and Drug Abuse Patient Records regulations: The Federal rules restrict any use of the information to criminally investigate or prosecute any alcohol or drug abuse patient.[facility] CenterIn the event this information is protected by the Federal Confidentiality of Alcohol and Drug Abuse Patient Records regulations: The Federal rules restrict any use of the information to criminally investigate or prosecute any alcohol or drug abuse patient.[facility]In the event this information is protected by the Federal Confidentiality of Alcohol and Drug Abuse Patient Records regulations: The Federal rules restrict any use of the information to criminally investigate or prosecute any alcohol or drug abuse patient.[facility] CenterIn the event this information is protected by the Federal Confidentiality of Alcohol and Drug Abuse Patient Records regulations: The Federal rules restrict any use of the information to criminally investigate or prosecute any alcohol or drug abuse patient.[facility] CenterIn the event this information is protected by the Federal Confidentiality of Alcohol and Drug Abuse Patient Records regulations: The Federal rules restrict any use of the information to criminally investigate or prosecute any alcohol or drug abuse patient.[facility] CenterIn the event this information is protected by the Federal Confidentiality of Alcohol and Drug Abuse Patient Records regulations: The Federal rules restrict any use of the information to criminally investigate or prosecute any alcohol or drug abuse patient.[facility] CenterIn the event this information is protected by the Federal Confidentiality of Alcohol and Drug Abuse Patient Records regulations: The Federal rules restrict any use of the information to criminally investigate or prosecute any alcohol or drug abuse patient.[facility] CenterIn the event this information is protected by the Federal Confidentiality of Alcohol and Drug Abuse Patient Records regulations: The Federal rules restrict any use of the information to criminally investigate or prosecute any alcohol or drug abuse patient.[facility] CenterIn the event this information is protected by the Federal Confidentiality of Alcohol and Drug Abuse Patient Records regulations: The Federal rules restrict any use of the information to criminally investigate or prosecute any alcohol or drug abuse patient.[facility] CenterIn the event this information is protected by the Federal Confidentiality of Alcohol and Drug Abuse Patient Records regulations: The Federal rules restrict any use of the information to criminally investigate or prosecute any alcohol or drug abuse patient.[facility] CenterIn the event this information is protected by the Federal Confidentiality of Alcohol and Drug Abuse Patient Records regulations: The Federal rules restrict any use of the information to criminally investigate or prosecute any alcohol or drug abuse patient.[facility] CenterIn the event this information is protected by the Federal Confidentiality of Alcohol and Drug Abuse Patient Records regulations: The Federal rules restrict any use of the information to criminally investigate or prosecute any alcohol or drug abuse patient.[facility] CenterIn the event this information is protected by the Federal Confidentiality of Alcohol and Drug Abuse Patient Records regulations: The Federal rules restrict any use of the information to criminally investigate or prosecute any alcohol or drug abuse patient.[facility] CenterIn the event this information is protected by the Federal Confidentiality of Alcohol and Drug Abuse Patient Records regulations: The Federal rules restrict any use of the information to criminally investigate or prosecute any alcohol or drug abuse patient.[facility] CenterIn the event this information is protected by the Federal Confidentiality of Alcohol and Drug Abuse Patient Records regulations: The Federal rules restrict any use of the information to criminally investigate or prosecute any alcohol or drug abuse patient.[facility] CenterIn the event this information is protected by the Federal Confidentiality of Alcohol and Drug Abuse Patient Records regulations: The Federal rules restrict any use of the information to criminally investigate or prosecute any alcohol or drug abuse patient.[facility] CenterIn the event this information is protected by the Federal Confidentiality of Alcohol and Drug Abuse Patient Records regulations: The Federal rules restrict any use of the information to criminally investigate or prosecute any alcohol or drug abuse patient.[facility] CenterIn the event this information is protected by the Federal Confidentiality of Alcohol and Drug Abuse Patient Records regulations: The Federal rules restrict any use of the information to criminally investigate or prosecute any alcohol or drug abuse patient.[facility] CenterIn the event this information is protected by the Federal Confidentiality of Alcohol and Drug Abuse Patient Records regulations: The Federal rules restrict any use of the information to criminally investigate or prosecute any alcohol or drug abuse patient.[facility] CenterIn the event this information is protected by the Federal Confidentiality of Alcohol and Drug Abuse Patient Records regulations: The Federal rules restrict any use of the information to criminally investigate or prosecute any alcohol or drug abuse patient.[facility] CenterIn the event this information is protected by the Federal Confidentiality of Alcohol and Drug Abuse Patient Records regulations: The Federal rules restrict any use of the information to criminally investigate or prosecute any alcohol or drug abuse patient.[facility] CenterIn the event this information is protected by the Federal Confidentiality of Alcohol and Drug Abuse Patient Records regulations: The Federal rules restrict any use of the information to criminally investigate or prosecute any alcohol or drug abuse patient.[facility] CenterIn the event this information is protected by the Federal Confidentiality of Alcohol and Drug Abuse Patient Records regulations: The Federal rules restrict any use of the information to criminally investigate or prosecute any alcohol or drug abuse patient.[facility] CenterIn the event this information is protected by the Federal Confidentiality of Alcohol and Drug Abuse Patient Records regulations: The Federal rules restrict any use of the information to criminally investigate or prosecute any alcohol or drug abuse patient.[facility] CenterIn the event this information is protected by the Federal Confidentiality of Alcohol and Drug Abuse Patient Records regulations: The Federal rules restrict any use of the information to criminally investigate or prosecute any alcohol or drug abuse patient.[facility] CenterIn the event this information is protected by the Federal Confidentiality of Alcohol and Drug Abuse Patient Records regulations: The Federal rules restrict any use of the information to criminally investigate or prosecute any alcohol or drug abuse patient.[facility] CenterIn the event this information is protected by the Federal Confidentiality of Alcohol and Drug Abuse Patient Records regulations: The Federal rules restrict any use of the information to criminally investigate or prosecute any alcohol or drug abuse patient.[facility] CenterIn the event this information is protected by the Federal Confidentiality of Alcohol and Drug Abuse Patient Records regulations: The Federal rules restrict any use of the information to criminally investigate or prosecute any alcohol or drug abuse patient.[facility] CenterIn the event this information is protected by the Federal Confidentiality of Alcohol and Drug Abuse Patient Records regulations: The Federal rules restrict any use of the information to criminally investigate or prosecute any alcohol or drug abuse patient.[facility] CenterIn the event this information is protected by the Federal Confidentiality of Alcohol and Drug Abuse Patient Records regulations: The Federal rules restrict any use of the information to criminally investigate or prosecute any alcohol or drug abuse patient.[facility] CenterIn the event this information is protected by the Federal Confidentiality of Alcohol and Drug Abuse Patient Records regulations: The Federal rules restrict any use of the information to criminally investigate or prosecute any alcohol or drug abuse patient.[facility] CenterIn the event this information is protected by the Federal Confidentiality of Alcohol and Drug Abuse Patient Records regulations: The Federal rules restrict any use of the information to criminally investigate or prosecute any alcohol or drug abuse patient.[facility] CenterIn the event this information is protected by the Federal Confidentiality of Alcohol and Drug Abuse Patient Records regulations: The Federal rules restrict any use of the information to criminally investigate or prosecute any alcohol or drug abuse patient.[facility] CenterIn the event this information is protected by the Federal Confidentiality of Alcohol and Drug Abuse Patient Records regulations: The Federal rules restrict any use of the information to criminally investigate or prosecute any alcohol or drug abuse patient.[facility] CenterIn the event this information is protected by the Federal Confidentiality of Alcohol and Drug Abuse Patient Records regulations: The Federal rules restrict any use of the information to criminally investigate or prosecute any alcohol or drug abuse patient.[facility] CenterIn the event this information is protected by the Federal Confidentiality of Alcohol and Drug Abuse Patient Records regulations: The Federal rules restrict any use of the information to criminally investigate or prosecute any alcohol or drug abuse patient.[facility] CenterIn the event this information is protected by the Federal Confidentiality of Alcohol and Drug Abuse Patient Records regulations: The Federal rules restrict any use of the information to criminally investigate or prosecute any alcohol or drug abuse patient.[facility] CenterIn the event this information is protected by the Federal Confidentiality of Alcohol and Drug Abuse Patient Records regulations: The Federal rules restrict any use of the information to criminally investigate or prosecute any alcohol or drug abuse patient.[facility] CenterIn the event this information is protected by the Federal Confidentiality of Alcohol and Drug Abuse Patient Records regulations: The Federal rules restrict any use of the information to criminally investigate or prosecute any alcohol or drug abuse patient.[facility] CenterIn the event this information is protected by the Federal Confidentiality of Alcohol and Drug Abuse Patient Records regulations: The Federal rules restrict any use of the information to criminally investigate or prosecute any alcohol or drug abuse patient.[facility] CenterIn the event this information is protected by the Federal Confidentiality of Alcohol and Drug Abuse Patient Records regulations: The Federal rules restrict any use of the information to criminally investigate or prosecute any alcohol or drug abuse patient.[facility] CenterIn the event this information is protected by the Federal Confidentiality of Alcohol and Drug Abuse Patient Records regulations: The Federal rules restrict any use of the information to criminally investigate or prosecute any alcohol or drug abuse patient.[facility] CenterIn the event this information is protected by the Federal Confidentiality of Alcohol and Drug Abuse Patient Records regulations: The Federal rules restrict any use of the information to criminally investigate or prosecute any alcohol or drug abuse patient.[facility] CenterIn the event this information is protected by the Federal Confidentiality of Alcohol and Drug Abuse Patient Records regulations: The Federal rules restrict any use of the information to criminally investigate or prosecute any alcohol or drug abuse patient.[facility] Reason for Visit (unrecogniz ed section and content) Reason Comments Recheck Reason Comments Results Reason Onset Date Comments Refill Request 08/27/2021 Reason Comments Pelvic Pain Specialty Diagnoses / Procedures Referred By Contac t Referred To Contact Diagnoses Pelvic pain Female genital prolapse, unspecified type Procedures CONSULT TO URO GYNECOLOGY OFFICE/OUTPATIENT NEW HIGH MDM 60-74 MINUTES Harriet Wagner APRN.CN [address] [place] [address] Referral ID Status Reason Start Date Expiration Date V isits Requested Visits Authorized [id number] Closed PCP Requested Referral Auto-Generated Referral 08/17/2021 08/17/2022 1 1 Reason Comments Patient Update Reason Comments Ovarian Cyst Reason Comments PT Eval Specialty Diagnoses / Procedures Referred By Contac t Referred To Contact [facility] Diagnoses Levator spasm Cystocele, midline Mixed stress and urge urinary incontinence M62.838 (ICD-10-CM) - Levator spasm Procedures CONSULT TO PHYSICAL THERAPY PHYSICAL THERAPY EVALUATION HIGH COMPLEX 45 MINS Caitlyn Fortune MD [address] [facility] [address] [place] [address] [facility] [place] [address] [place] [address] Referral ID Status Reason Start Date Expiration Date V isits Requested Visits Authorized [id number] Closed Auto-Generate d Referral 10/06/2021 10/06/2022 1 1 Reason Comments Headache Reason Onset Date Comments Refill Request 01/04/2022 Reason Comments Patient Question Reason Comments Cough Patient is here for exposure black mold in home. Cough/runny nose. Reason Onset Date Comments Refill Request 01/29/2022 Reason Comments Medication Problem Reason Comments Refill Request Reason Comments Physical Reason Comments Fall Pt reported fall at home pain (LT) shoulder, upper back. Reason Comments Recheck Depression and anxie ty Reason Onset Date Comments Transition Of Care 07/16/2022 07/15/22 Reason Comments Hospital F/U Reason Onset Date Comments Refill Request 03/14/2023 Reason Comments requesting medication Reason Comments Vomiting Reason Comments Opened In Error Reason Comments Outside Imaging Reason Comments Outside [id number] Ordered Reason Comments Arm Pain R forearm and elbow pain x6 days Reason Comments Yearly Exam Reason Comments Follow Up Blood pressure Reason Comments left ear pain Reason Comments Follow Up Reason Comments Derm Problem Reason Comments New Patient C/o chronic daily RICK , migraines for years, RICK starts at posterior of head, radiates to front of head, no known triggers, just wakes up with RICK Specialty Diagnoses / Procedures Referred By Contac t Referred To Contact Neurology Diagnoses Chronic daily headache Procedures CONSULT TO NEUROLOGY OFFICE/OUTPATIENT [facility] 60 MINUTES Cheryl Sahu PA-C [address] [place] [address] Referral ID Status Reason Start Date Expiration Date V isits Requested Visits Authorized [id number] Closed PCP Requested Referral 04/11/2024 04/11/2025 1 1 Specialty Diagnoses / Procedures Referred By Contac t Referred To Contact [facility] Diagnoses Chronic daily headache Procedures MRI BRAIN WO IVCON MRI BRAIN BRAIN STEM W/O CONTRAST MATERIAL La Jacques PA-C [address] [place] [address] [place] [id number] Referral ID Status Reason Start Date Expiration Date V isits Requested Visits Authorized [id number] Closed Auto-Generat ed Referral Patient Cleared - Admin/Chairm an/Director advise to proceed or did not respond 05/03/2024 07/02/2024 1 1 Reason Comments Chest Pain Reason Comments Results Outside labs Reason Comments Outside Lab Results CT scan Reason Comments ER Discharge Summary H&P Reason Comments Hospital F/U [facility] Reason Comments Vaginal Problem Reason Comments Radiology US Specialty Diagnoses / Procedures Referred By Maryanac t Referred To Contact [facility] Diagnoses Ovarian cyst, bilateral Procedures US FEMALE PELVIS TRANSVAG US TRANSVAGINAL Cheryl Sahu PA-C [address] [place] [address] Phone: tel: fax: [place] [phone] Referral ID Status Reason Start Date Expiration Date V isits Requested Visits Authorized [id number] Closed Auto-Generate d Referral 08/22/2024 09/21/2025 1 1 Reason Onset Date Comments Refill Request 09/03/2024 Reason Comments Well Woman Reason Onset Date Comments Refill Request 09/29/2024 Reason Comments Leg Swelling Reason Comments Edema Bilateral lower legs x 1 week Reason Comments Patient Update Medication Request Reason Comments ext document CXR Care Teams (unrecognized sec tion and content) Team Status: Active Member Role Status Dates Dr. Osvaldo Sue MD Primary Care Provider Active Team Status: Inactive Member Role Status Dates Dr. Osvaldo Sue MD Primary Care Provider Active Start: August 09, 2024 End: August 10, 2024 Dr. Louie Bacon , DO Emergency Provider Active S tart: August 09, 2024 End: August 10, 2024 Dr. Len Lafleur , DO Admit Provider Active Start: August 09, 2024 End: August 10, 2024 Dr. Len Lafleur , Other Provider Active Start: August 09, 2024 End: August 10, 2024 Dr. Austin Mendez , Attending Provider Active Start: August 09, 2024 End: August 10, 2024 Dr. Austin Mendez , DO Other Provider Active Star t: August 09, 2024 Team Status: Active Member Role Status Dates Dr. Osvaldo Sue MD Primary Care Provider Active Start: August 10, 2024 Dr. Louie Bacno DO Emergency Provider Active S tart: August 10, 2024 Dr. Len Lafleur DO Admit Provider Active Start: August 10, 2024 Dr. Len Lafleur DO Other Provider Active Start: August 10, 2024 Dr. Austin Mendez DO Attending Provider Active Start: August 10, 2024 Dr. Austin Mendez , Other Provider Active Star t: August 10, 2024 Child And Family Therapist Relationship Specialty Start Date End Date Osvaldo Sue MD [address] [place] [address] PCP - General Family Practice 10/06/18 Child And Family Therapist Relationship Specialty Start Date End Date Osvaldo Sue MD [address] [place] [address] PCP - General Family Practice 10/06/18 Child And Family Therapist Relationship Specialty Start Date End Date Osvaldo Sue MD [address] [place] [address] PCP - General Family Practice 10/06/18 Child And Family Therapist Relationship Specialty Start Date End Date Osvaldo Sue MD [address] [place] [id number] PCP - General Family Practice 10/06/18 Child And Family Therapist Relationship Specialty Start Date End Date Osvaldo Sue MD [address] [place] [address] PCP - General Family Practice 10/06/18 Child And Family Therapist Relationship Specialty Start Date End Date Osvaldo Sue MD [facility] [place] [address] PCP - General Family Practice 10/06/18 Child And Family Therapist Relationship Specialty Start Date End Date Osvaldo Sue MD [address] [place] [address], [place] [address] PCP - General Family Practice 10/06/18 Child And Family Therapist Relationship Specialty Start Date End Date Osvaldo Sue MD [address] [place] [address] [place] [address] PCP - General Family Practice 10/06/18 Child And Family Therapist Relationship Specialty Start Date End Date Osvaldo Sue MD [address] [place] [address], [place] [address] PCP - General Family Medicine 10/06/18 Child And Family Therapist Relationship Specialty Start Date End Date Osvaldo Sue MD [address] [place] [address], [place] [address] PCP - General Family Medicine 10/06/18 Child And Family Therapist Relationship Specialty Start Date End Date Osvaldo Sue MD [facility] [place] [address] PCP - General Family Medicine 10/06/18 Child And Family Therapist Relationship Specialty Start Date End Date Osvaldo Sue MD [address] [place] [address], [place] [address] PCP - General Family Medicine 10/06/18 Child And Family Therapist Relationship Specialty Start Date End Date Osvaldo Sue MD [address] [place] [address] PCP - General Family Medicine 10/06/18 Child And Family Therapist Relationship Specialty Start Date End Date Osvaldo Sue MD [address] [place] [address] PCP - General Family Medicine 10/06/18 Child And Family Therapist Relationship Specialty Start Date End Date Osvaldo Sue MD [address] [place] [address] PCP - General Family Medicine 10/06/18 Child And Family Therapist Relationship Specialty Start Date End Date Osvaldo Sue MD [address] [place] [address] PCP - General Family Medicine 10/06/18 Child And Family Therapist Relationship Specialty Start Date End Date Osvaldo Sue MD [address] [place] [address] PCP - General Family Medicine 10/06/18 Child And Family Therapist Relationship Specialty Start Date End Date Osvaldo Sue MD [address] [place] [address] PCP - General Family Medicine 10/06/18 Child And Family Therapist Relationship Specialty Start Date End Date Osvaldo Sue MD [address] [place] [address] PCP - General Family Medicine 10/06/18 Child And Family Therapist Relationship Specialty Start Date End Date Osvaldo Sue MD [address] [place] [address] PCP - General Family Medicine 10/06/18 Child And Family Therapist Relationship Specialty Start Date End Date Osvaldo Sue MD [address] [place] [address] PCP - General Family Medicine 10/06/18 Child And Family Therapist Relationship Specialty Start Date End Date Osvaldo Sue MD [address] [place] [address] PCP - General Family Medicine 10/06/18 Child And Family Therapist Relationship Specialty Start Date End Date Osvaldo Sue MD [address] [place] [address] PCP - General Family Medicine 10/06/18 Child And Family Therapist Relationship Specialty Start Date End Date Osvaldo Sue MD [address] [place] [address] PCP - General Family Medicine 10/06/18 Child And Family Therapist Relationship Specialty Start Date End Date Osvaldo Sue MD [address] [place] [address] PCP - General Family Medicine 10/06/18 Child And Family Therapist Relationship Specialty Start Date End Date Osvaldo Sue MD [address] [place] [address] PCP - General Family Medicine 10/06/18 Child And Family Therapist Relationship Specialty Start Date End Date Osvaldo Sue MD [address] [place] [address] PCP - General Family Medicine 10/06/18 Child And Family Therapist Relationship Specialty Start Date End Date Osvaldo Sue MD [address] [place] [address] PCP - General Family Medicine 10/06/18 Child And Family Therapist Relationship Specialty Start Date End Date Osvaldo Sue MD [address] [place] [address] PCP - General Family Medicine 10/06/18 Monica Means APRN.RN PSYCH [address] [place] [address] [facility] 03/10/24 Cheryl Sahu PA-C [address] [place] [address] [facility] 03/10/24 Child And Family Therapist Relationship Specialty Start Date End Date Osvaldo Sue MD [address] [place] [address] PCP - General Family Medicine 10/06/18 Monica Means APRN.RN PSYCH [address] [place] [address] [facility] Family Medicine 03/10/24 Cheryl Shau PA-C [address] [place] [address] [facility] 03/10/24 Child And Family Therapist Relationship Specialty Start Date End Date Osvaldo Sue MD [address] [place] [address] PCP - General Family Medicine 10/06/18 Monica Means HR RECEPTIONIST.RN PSYCH [address] [place] [address] [facility] 03/10/24 Cheryl Sahu PA-C [address] [place] [address] [facility] 03/10/24 Child And Family Therapist Relationship Specialty Start Date End Date Osvaldo Sue MD [address] [place] [address] PCP - General Family Medicine 10/06/18 Monica Means, JAYLEN.RN PSYCH [address] [place] [place] [address] [facility] Family Medicine 03/10/24 Cheryl Sahu PA-C [address] [place] [address] [facility] Family Medicine 03/10/24 Child And Family Therapist Relationship Specialty Start Date End Date Osvaldo Sue MD [address] [place] [address] PCP - General Family Medicine 10/06/18 Monica Means, HR RECEPTIONIST.RN PSYCH [address] [place] [address] [facility] Family Medicine 03/10/24 Cheryl Sahu PA-C [address] [place] [address] [facility] 03/10/24 Child And Family Therapist Relationship Specialty Start Date End Date Osvaldo Sue MD [address] [place] [address] PCP - General Family Medicine 10/06/18 Monica Means, HR RECEPTIONIST.RN PSYCH [address] [place] [place] [address] [facility] 03/10/24 Cheryl Sahu PA-C [address] [place] [address] [facility] 03/10/24 Child And Family Therapist Relationship Specialty Start Date End Date Osvaldo Sue MD [address] [place] [address] PCP - General Family Medicine 10/06/18 Monica Means APRN.RN PSYCH [address] [place] [address] [facility] 03/10/24 Cheryl Sahu PA-C [address] [place] [address] [facility] 03/10/24 Child And Family Therapist Relationship Specialty Start Date End Date Osvaldo Sue MD [address] [place] [address] PCP - General Family Medicine 10/06/18 Monica Means APRN.RN PSYCH [address] [place] [address] [facility] 03/10/24 Cheryl Sahu PA-C [address] [place] [address] [facility] 03/10/24 Child And Family Therapist Relationship Specialty Start Date End Date Osvaldo Sue MD [address] [place] [address] PCP - General Family Medicine 10/06/18 Monica Means, HR RECEPTIONIST.RN PSYCH [address] [place] [address] [facility] 03/10/24 Cheryl Sahu PA-C [address] [place] [address] [facility] 03/10/24 Child And Family Therapist Relationship Specialty Start Date End Date Osvaldo Sue MD [address] [place] [address] PCP - General Family Medicine 10/06/18 Monica Means, HR RECEPTIONIST.RN PSYCH [address] [place] [address] [facility] 03/10/24 Cheryl Sahu PA-C [address] [place] [address] [facility] 03/10/24 Child And Family Therapist Relationship Specialty Start Date End Date Osvaldo Sue MD [address] [place] [address] PCP - General Family Medicine 10/06/18 Monica Means, HR RECEPTIONIST.RN PSYCH [address] [place] [address] [facility] 03/10/24 Cheryl Sahu PA-C [address] [place] [address] [facility] 03/10/24 Team Status: Active Member Role Status Dates Dr. Osvaldo Sue MD Primary Care Provider Active Start: August 09, 2024 Dr. Louie Bacon DO Emergency Provider Active S tart: August 09, 2024 Dr. Len Lafleur , Admit Provider Active Start: August 09, 2024 Dr. Len Lafleur , Attending Provider Active Start: August 09, 2024 Child And Family Therapist Relationship Specialty Start Date End Date Osvaldo Sue MD [address] [place] [address] PCP - General Family Medicine 10/06/18 Cheryl Sahu PA-C [address] [place] [address] [facility] 03/10/24 Child And Family Therapist Relationship Specialty Start Date End Date Osvaldo Sue MD [address] [place] [address] PCP - General Family Medicine 10/06/18 Cheryl Sahu PA-C [address] [place] [address] [facility] 03/10/24 Child And Family Therapist Relationship Specialty Start Date End Date Osvaldo Sue MD [address] [place] [address] PCP - General Family Medicine 10/06/18 Cheryl Sahu PA-C [address] [place] [address] [facility] 03/10/24 Child And Family Therapist Relationship Specialty Start Date End Date Osvaldo Sue MD [address] [place] [address] PCP - General Family Medicine 10/06/18 Monica Means APRN.CNP [address] [place] [address] [facility] Family Medicine 09/03/24 Cheryl Sahu PA-C [address] [place] [address] [facility] 09/03/24 Child And Family Therapist Relationship Specialty Start Date End Date Osvaldo Sue MD [address] [place] [address] PCP - General Family Medicine 10/06/18 Cheryl Sahu PA-C [address] [place] [address] [facility] 03/10/24 09/02/24 Monica Means APRN.RN PSYCH [address] [place] [address] [facility] 09/03/24 Cheryl Sahu PA-C [address] [place] [address] [facility] 09/03/24 Child And Family Therapist Relationship Specialty Start Date End Date Osvaldo Sue MD [address] [place] [address] PCP - General Family Medicine 10/06/18 Monica Means APRN.RN PSYCH [address] [place] [address] [facility] 09/03/24 Cheryl Sahu PA-C [address] [place] [address] [facility] 09/03/24 Child And Family Therapist Relationship Specialty Start Date End Date Osvaldo Sue MD [address] [place] [address] PCP - General Family Medicine 10/06/18 Monica Means, JAYLEN.RN PSYCH [address] [place] [address] [facility] 09/03/24 Cheryl Sahu PA-C [address] [place] [address] [facility] 09/03/24 Child And Family Therapist Relationship Specialty Start Date End Date Osvaldo Sue MD [address] [place] [address] PCP - General Family Medicine 10/06/18 Monica Means, HR RECEPTIONIST.RN PSYCH [address] [place] [address] [facility] 09/03/24 Cheryl Sahu PA-C [address] [place] [address] [facility] 09/03/24 Child And Family Therapist Relationship Specialty Start Date End Date Osvaldo Sue MD [address] [place] [address] PCP - General Family Medicine 10/06/18 Monica Means, HR RECEPTIONIST.RN PSYCH [address] [place] [address] [facility] 09/03/24 Cheryl Sahu PA-C [address] [place] [address] [facility] 09/03/24 Child And Family Therapist Relationship Specialty Start Date End Date Osvaldo Sue MD [address] [place] [address] PCP - General Family Medicine 10/06/18 Monica Means, JAYLEN.RN PSYCH [address] [place] [place] [address] [facility] Family Medicine 09/03/24 Cheryl Sahu PA-C [address] [place] [address] [facility] 09/03/24 Child And Family Therapist Relationship Specialty Start Date End Date Osvaldo Sue MD [address] [place] [address] PCP - General Family Medicine 10/06/18 Monica Means, HR RECEPTIONIST.RN PSYCH [address] [place] [address] [facility] Family Medicine 09/03/24 Cheryl Sahu PA-C [address] [place] [address] [facility] 09/03/24 Child And Family Therapist Relationship Specialty Start Date End Date Osvaldo Sue MD [address] [place] [address] PCP - General Family Medicine 10/06/18 Monica Means, HR RECEPTIONIST.RN PSYCH [address] [place] [address] [facility] Family Medicine 09/03/24 Cheryl Sahu PA-C [address] [place] [address] [facility] 09/03/24 Team Status: Active Member Role/Relationship Status Dates Dr. Osvaldo Sue MD Primary care physician Active Team Status: Inactive Member Role/Relationship Status Dates Dr. Osvaldo Sue MD Primary care physician Active Start: December 29, 2024 End: December 29, 2024 Freedom Alexander MD Emergency Department Physician Active Start: December 29, 2024 End: December 29, 2024 INFORMATION SOURCE (unrecogn ized section and content) DATE CREATED AUTHOR 10/09/2021 [facility] DATE CREATED AUTHOR AUTHOR'S ORGANIZ ATION 05/01/2022 [facility] DATE CREATED AUTHOR AUTHOR'S ORGANIZ ATION 01/05/2025 [facility] DATE CREATED AUTHOR AUTHOR'S ORGANIZ ATION 01/05/2025 [facility] DATE CREATED AUTHOR AUTHOR'S ORGANIZ ATION 01/11/2025 [facility] DATE CREATED AUTHOR AUTHOR'S ORGANIZ ATION 01/11/2025 [facility] Goals (unrecognized section and content) Goals may be documented in a n alternate sectionGoals may be documented in an alternate section FOR RECORDS PERTAINING TO PATIENTS WHO ARE OR HAVE BEEN ENROLLED IN A CHEMICAL DEPENDENCY/SUBSTANCEABUSE PROGRAM, SOME INFORMATION MAY BE OMITTED. This clinical summary was aggregated from multiple sources. Caution should be exercised in using it in the provision of clinical care. This summary normalizes information from multiple sources, and as a consequence, information in this document may materially change the coding, format and clinical context of patient data. In addition, data may be omitted in some cases. CLINICAL DECISIONS SHOULD BE BASED ON THE PRIMARY CLINICAL RECORDS. [employer] provides no warranty or guarantee of the accuracy or completeness of information in this document.
[2025-01-25 18:13] LABS: Lipase 15 U/L (13-75)
--- NOTE | 2025-01-25 18:15 | EX.ED.DYSGE1 ---
HPI History of Present Illness Chief Complaint: Nausea/Vomiting Narrative Narrative: Patient is a 59-year-old female with past medical history of hyperlipidemia, hypertension, left subclavian artery aneurysm, hypokalemia, migraine headaches who presents to the emergency department the chief complaint of nausea vomiting diarrhea abdominal pain whole body aches. She states that her son has been ill with similar symptoms as well and she just cannot seem to get over this. She states that [employer] was helping her however she ran out of this. She states that now she has been unable to keep anything down therefore she cannot take her pain medication and other medication that she normally takes. Patient states that she is passing gas. [facility] Medical History Old myocardial infarction Mixed hyperlipidemia GERD (gastroesophageal reflux disease) Essential hypertension Lung nodules Aneurysm of left subclavian artery Chest pain Dehydration Former tobacco use Migraine Hypertension Elevated LFTs Hypokalemia Gastroenteritis No significant past medical history Home Medications ?Medication ?Instructions ?Recorded ?Last Taken ?Type propranolol 160 mg capsule,24 160 mg PO DAILY 05/03/19 Unknown History hr,extended release famotidine 20 mg tablet 20 mg PO BID #60 tabs 05/04/19 Unknown Rx naproxen 500 mg tablet 500 mg PO BID #14 tabs 04/15/20 Unknown Rx atorvastatin 20 mg tablet 20 mg PO QHS 08/19/22 Unknown History loratadine 10 mg tablet 10 mg PO DAILY 08/19/22 Unknown History omeprazole 40 mg capsule,delayed 40 mg PO DAILY 08/19/22 Unknown History release sumatriptan succinate 6 mg/0.5 mL 6 mg subcut Q1-4H PRN migraine 08/19/22 Unknown History subcutaneous pen injector headache gabapentin 300 mg capsule 300 mg PO TID 08/09/24 Unknown History ondansetron HCl 4 mg tablet 4 mg PO Q6H PRN nausea and vomiting 08/09/24 Unknown History trazodone 50 mg tablet 50 mg PO QHS 08/09/24 Unknown History promethazine 25 mg tablet 25 mg PO Q6H PRN nausea and 12/29/24 Unknown Rx vomiting #15 tabs dicyclomine 20 mg tablet 20 mg PO TID PRN abdominal pain 01/25/25 Unknown Rx #30 tabs ondansetron 4 mg disintegrating 4 mg PO Q6H PRN nausea and 01/25/25 Unknown Rx tablet vomiting #30 tabs Allergy/AdvReac Type Severity Reaction Status Date / Time No Known Allergies Allergy Verified 01/25/25 17:32 Surgical History History of left heart catheterization (LHC) (~04/29/14) Social History Smoking Status: Former smoker ROS ROS ED ROS Narrative Constitutional: Complains of chills whole body aches as noted above denies headache lightheadedness dizziness Eyes: Denies double vision Cardiovascular: Denies chest pain Respiratory: Denies shortness of breath Abdomen: Complains of abdominal pain nausea vomit diarrhea as noted above denies dark tarry stools or blood in her stool : Denies urinary symptoms Neurological: Denies numbness, weakness, tingling Musculoskeletal: Denies back pain Skin: Denies any rashes or lesions EXAM Physical Exam Narrative Exam Narrative: General: Patient is lying in bed rest comfortably did appear to be uncomfortable secondary to her abdominal pain and not feeling well Head: Atraumatic, normocephalic Eyes: PERRL bilaterally, EOMI bilaterally, no conjunctival injection noted Neck: Soft, supple, trachea midline Cardiovascular: Patient tachycardic with a regular rhythm Respiratory: Clear to auscultation bilaterally Abdomen: Soft, nondistended, diffuse tenderness to palpation no rebound or guarding on exam Extremities: +5/5 strength noted in the bilateral upper and lower extremities Neurological: Patient follow commands knew that she was at [facility] the year is 2024 Skin: Warm, dry, intact no rashes or lesions noted Const Vital Signs: 01/25/25 17:30 01/25/25 19:08 Temperature 98.7 F Temperature Source Oral Pulse Rate 125 H 96 Respiratory Rate 18 18 Blood Pressure 156/136 H 147/81 H Blood Pressure Mean 142 103 Pulse Ox 99 97 Oxygen Delivery Method Room Air Room Air MDM MDM MDM Narrative Medical decision making narrative: Patient is a 59-year-old female who presents to the emergency department chief complaint of diffuse bodyaches, abdominal pain, nausea vomiting not tolerating oral intake as well as diarrhea. On the differential diagnose includes but not limited to viral gastroenteritis, pancreatitis, appendicitis, bowel obstruction. Once the workup is obtained and reviewed she will be reevaluated. Patient be given IV fluids morphine and Zofran. . Patient CBC reviewed and showed a white blood count elevated at 13,000 however she chronically has an elevated white count when compared to previous blood draws, hemoglobin stable at 16.8, plate count of 395. Patient sodium is 141, potassium normal 3.3, creatinine 0.85. Patient's total bilirubin elevated to 1.49 however she has chronic elevated total bilirubin. Patient AST and ALT were 96 and 107 respectively she also has chronically elevated transaminitis this is not new lipase normal at 15. Patient CT abdomen pelvis IV contrast was reviewed which showed mildly thickened urinary bladder wall which may reflect cystitis versus nondistention. Colonic diverticulosis without evidence of acute diverticulitis. She has numerous dilated vessels surrounding the uterus consistent with pelvic congestion with bilateral tubal ligation. She has a right ovarian cyst and a left ovarian cyst noted as well. On reevaluation the patient and she is feeling much better at 8:15 PM and would like to go home at this point time. She will be given prescription for Bentyl and Zofran. She is advised to follow-up with her doctor in outpatient setting return with worsening symptoms all question concerns answered she was discharged home in stable condition. Lab Data Labs: Laboratory Results - last 24 hr 01/25/25 17:43 WBC 13.8 H RBC 5.41 H Hgb 16.8 H Hct 48.3 H MCV 89.3 MCH 31.1 MCHC 34.8 RDW Std Deviation 42.2 RDW Coeff of Kenji 12.8 Plt Count 395 MPV 10.3 Immature Gran % (Auto) 0.200 Neut % (Auto) 60.6 Lymph % (Auto) 31.5 Cherry % (Auto) 6.5 Eos % (Auto) 0.5 Baso % (Auto) 0.7 Absolute Neuts (auto) 8.4 H Absolute Lymphs (auto) 4.34 Nucleated RBC % 0 Sodium 141 Potassium 3.3 Chloride 100 Carbon Dioxide 22.1 Anion Gap 19 H BUN 15 Creatinine 0.85 Estim Creat Clear Calc 62.04 Est GFR (MDRD) Non-Af 80 BUN/Creatinine Ratio 17.6 Glucose 164 H Calcium 10.3 Total Bilirubin 1.49 H AST 96 H ALT 107 H Alkaline Phosphatase 125 H Total Protein 8.6 H Albumin 4.8 Globulin 3.8 Albumin/Globulin Ratio 1.3 Lipase 15 Radiography Diagnostic Testing: Clinical Impression(s) from Imaging Studies Abdomen/Pelvis CT 01/25/25 17:55 IMPRESSION: Mildly thickened urinary bladder wall which may reflect cystitis vs nondistention; consider correlation with urinalysis. Colonic diverticulosis without acute diverticulitis. Numerous dilated vessels surrounding the uterus consistent with pelvic congestion. Bilateral tubal ligations. 1.9 x 1.7 cm cyst within the right ovary and 3.9 x 3.3 cm cyst within left ovary. Reading Location: [facility] Discharge Plan Triage Chief Complaint: Nausea/Vomiting ED Provider: Brandon Tay Dx/Rx/DC Orders Clinical Impression: Viral gastroenteritis, Abdominal pain, Diarrhea, Nausea & vomiting Prescriptions: New dicyclomine 20 mg tablet 20 mg PO TID PRN (Reason: abdominal pain) Qty: 30 0RF ondansetron 4 mg tablet,disintegrating 4 mg PO Q6H PRN (Reason: nausea and vomiting) Qty: 30 0RF No Action atorvastatin 20 mg tablet 20 mg PO QHS loratadine 10 mg tablet 10 mg PO DAILY omeprazole 40 mg capsule,delayed release(DR/EC) 40 mg PO DAILY sumatriptan succinate 6 mg/0.5 mL pen injector 6 mg subcut Q1-4H PRN (Reason: migraine headache) Rx Instructions: do not exceed 2 doses in a 24 hour period propranolol 160 MG capsule,extended release 24 hr 160 mg PO DAILY famotidine 20 MG tablet 20 mg PO BID Qty: 60 0RF naproxen 500 MG tablet 500 mg PO BID Qty: 14 0RF trazodone 50 mg tablet 50 mg PO QHS ondansetron HCl 4 mg tablet 4 mg PO Q6H PRN (Reason: nausea and vomiting) gabapentin 300 mg capsule 300 mg PO TID promethazine 25 mg tablet 25 mg PO Q6H PRN (Reason: nausea and vomiting) Qty: 15 0RF Primary Care Provider: Osvaldo Banks Referrals: Osvaldo Banks MD [Primary Care Provider, Family Practice] Activity Restrictions/Additional Instructions: Your blood work did not show any acute findings here in the emergency department your CT scan did not show any acute surgical findings either. Use prescription as prescribed follow-up with your doctors in the outpatient setting and return with worsening symptoms or other concerns. Print Language: [place] Island[place] Disposition Disposition: Home, Self Care
[2025-01-25 18:26] LABS: AST(SGOT) 96 U/L (<=31); Alanine Aminotransfer ALT/SGPT 107 U/L (<=34); Albumin, Serum 4.8 g/dL (3.5-5.0); Alkaline Phosphatase 125 U/L (35-104); Anion Gap 19 (5-15); BUN 15 mg/dL (4-19); BUN/Creat Ratio 17.6 RATIO (10-20); Calcium,Total 10.3 mg/dL (7.6-11.0); Carbon Dioxide 22.1 mmol/L (21.0-32.0); Chloride 100 mmol/L (98-108); Estimated Creatinine Clearance 62.04 ml/min (50-250); Globulin 3.8 g/dL (2.2-4.2); Glucose 164 mg/dL (70-99); Potassium 3.3 mmol/L (3.3-5.1)
[2025-01-25 19:08] VITALS: BP 147/81; PULSE 96; RESP 18; O2SAT 97
[2025-01-25 20:37] VITALS: BP 142/90; PULSE 88; RESP 18; TEMP 36.6; O2SAT 97
== END 2025-01-25 20:38 | disposition home or self-care (01) ==
PROVIDERS: Emergency Provider Emergency Medicine; PCP Family Medicine; Visit Provider Emergency Medicine
DX: A08.4 Viral intestinal infection, unspecified (principal); E78.2 Mixed hyperlipidemia; N32.89 Other specified disorders of bladder; Z87.891 Personal history of nicotine dependence; I10 Essential (primary) hypertension; K57.30 Diverticulosis of large intestine without perforation or abscess without bleeding; N83.202 Unspecified ovarian cyst, left side; N83.201 Unspecified ovarian cyst, right side; K21.9 Gastro-esophageal reflux disease without esophagitis; R10.9 Unspecified abdominal pain; R19.7 Diarrhea, unspecified
CPT/HCPCS: 74177; 80053; 83690; 85025; 96361; 96374; 96375; 99283; Q9967; A4216; J2405